=== PATIENT | female | born 1960 | race Caucasian/White ===

== ENCOUNTER 2022-12-27 10:08 | Outpatient (OUT) | payer MEDICARE, SELFPAY ==
--- NOTE | 2022-12-27 10:52 | XR_ITS ---
[address] [address] Patient Name: JOSÉ LUIS KURTZ MRN: [id number] date: 1960 Sex: F Assigned Patient Location: LAB Current Patient Location: LAB Accession/Order Number: [id number] Exam Date: 12/27/2022 11:05 Report Date: 12/27/2022 18:07 At the request of: BULMARO ELIZABETH Procedure: XR ankle RT min 3V PROCEDURE: XR ankle RT min 3V COMPARISON: None. HISTORY: Herniated Lumbar Disc M51.26, Pedal Edema R60.0 FINDINGS: BONES:No acute fracture or dislocation. Moderate enthesopathic spurring plantar calcaneus. SOFT TISSUES:Moderate diffuse soft tissue swelling EFFUSION:None visible. OTHER: Negative. IMPRESSION: Soft tissue swelling Electronically authenticated by: GISSELLE FORBES Date: 12/27/2022 18:07
[2022-12-27 11:30] LABS: Basophils Percent Auto 0.7 % (0.2-2.0); Eosinophils Absolute Auto 0.1 10^3/uL (0.0-0.7); Eosinophils Percent Auto 1.9 % (0.9-7.0); Hematocrit 43.1 % (36.0-48.0); Hemoglobin 14.3 g/dL (12.0-16.0); Immature Granulocytes Abs Auto 0.01 10^3/uL (0.00-0.03); Immature Granulocytes Pct Auto 0.2 % (0.0-0.5); Lymphocytes Absolute Auto 1.4 10^3/uL (1.2-3.8); Lymphocytes Percent Auto 31.8 % (20.5-60.0); Mean Corpuscular HGB Conc 33.2 g/dL (29.9-35.2); Mean Corpuscular Hemoglobin 31.6 pg (26.7-34.0); Mean Corpuscular Volume 95.1 fL (81.0-99.0); Mean Platelet Volume 11.2 fL (9.5-13.5); Monocytes Absolute Auto 0.3 10^3/uL (0.3-0.8); Monocytes Percent Auto 7.9 % (1.7-12.0); Neutrophils Absolute Auto 2.5 10^3/uL (1.4-6.5); Neutrophils Percent Auto 57.5 % (43.0-75.0); Platelet Count 211 10^3/uL (150-450); Red Blood Count 4.53 10^6/uL (4.20-5.40); Red Cell Distribution Width 13.2 % (11.0-15.0); White Blood Count 4.3 10^3/uL (4.0-11.0)
[2022-12-27 11:57] LABS: Estimated Average Glucose 68 mg/dL
[2022-12-27 12:32] LABS: Alanine Aminotransferase 37 U/L (14-59); Albumin Level 3.8 g/dL (3.4-5.0); Alkaline Phosphatase 104 U/L (46-116); Anion Gap 11.4; Aspartate Amino Transferase 24 U/L (15-37); Bilirubin Total 0.4 mg/dL (0.2-1.0); Calcium 9.2 mg/dL (8.5-10.1); Carbon Dioxide 27.6 mmol/L (21.0-32.0); Chloride 103 mmol/L (98-107); Chol HDL Ratio 2.8; Cholesterol 130 mg/dL (<=200); Estimated GFR (African America >60 (>=60); Estimated GFR (Non-African Ame >60 (>=60); Globulin 3.9 g/dL; Glucose 85 mg/dL (74-106); HDL Cholesterol 46 mg/dL (40-60); LDL Cholesterol Calculated 75.4 mg/dL; Sodium 138 mmol/L (136-145); Thyroid Stimulating Hormone 5.128 uIU/mL (0.358-3.740); Total Protein 7.7 g/dL (6.4-8.2); Triglycerides 43 mg/dL (<=150); Uric Acid 3.9 mg/dL (2.6-6.0); VLDL CHOLESTEROL 8.6 mg/dL
[2022-12-27 12:34] LABS: C Reactive Protein <0.2 mg/dL (<=1.0)
[2022-12-28 08:12] LABS: Antistreptolysin O Ab 271.5 IU/mL (0.0-200.0); Rheumatoid Factor (RF) <10.0 IU/mL (<14.0)
[2022-12-28 11:09] LABS: Insulin 7.3 uIU/mL (2.6-24.9)
[2022-12-28 12:09] LABS: ANA Direct Negative (Negative)
[2022-12-30 14:07] LABS: Vitamin B1 (Thiamine), Blood 150.7 nmol/L (66.5-200.0)
== END 2022-12-27 10:09 ==
LOC: LAB 10:13
PROVIDERS: PCP Family Medicine; Visit Provider Family Medicine
DX: E55.9 Vitamin D deficiency, unspecified (principal); E03.9 Hypothyroidism, unspecified; M51.26 Other intervertebral disc displacement, lumbar region; G62.9 Polyneuropathy, unspecified; Z12.12 Encounter for screening for malignant neoplasm of rectum; D64.9 Anemia, unspecified; R60.0 Localized edema; I11.0 Hypertensive heart disease with heart failure; I50.30 Unspecified diastolic (congestive) heart failure
CPT/HCPCS: 36415; 73610; 80053; 80061; 82306; 82607; 83036; 83525; 83540; 83880; 84425; 84436; 84443; 84479; 84550; 85025; 86038; 86060; 86140; 86430

== ENCOUNTER 2023-05-08 08:49 | Outpatient (OUT) | payer MEDICARE, SELFPAY ==
--- NOTE | 2023-05-08 | CT_ITS ---
The [address] [address] Patient Name: JOSÉ LUIS KURTZ MRN: [id number] date: 1960 Sex: F Assigned Patient Location: LAB Current Patient Location: LAB Accession/Order Number: [id number] Exam Date: 05/08/2023 10:42 Report Date: 05/08/2023 11:50 At the request of: BULMARO ELIZABETH Procedure: CT abdomen pelvis w con CT abdomen pelvis w con, 05/08/2023 10:42 AM EDT INDICATION: Unspecified abdominal hernia without obstruction COMPARISON: This study was compared to the prior lumbar MRI dated 04/08/2020 TECHNIQUE: Axial images of the abdomen were obtained after the administration of IV contrast. Multiplanar reformatted images were generated and reviewed as needed. Dose reduction techniques were achieved by using automated exposure control and/or adjustment of mA and/or kV according to patient size and/or use of iterative reconstruction technique. FINDINGS: Lungs: The base of lungs is clear. No pleural effusion is noted. Liver and gallbladder: The liver is unremarkable. There is status post cholecystectomy. No enlargement of intra or extrahepatic biliary ducts. Genitourinary system: Mild bilateral hydronephrosis with no definite obstruction which is stable since prior lumbar MRI in 2019. No nephrolithiasis. No abnormality of the urinary bladder is noted. Other solid abdominal organs: Right adrenal gland, pancreas, and spleen are unremarkable. There is a 1.5 cm lesion within the left adrenal gland with Hounsfield unit of 45, not fully characterized by this study. Aorta: The infrarenal abdominal aorta is nonaneurysmal. Free fluid: There is no free fluid in the abdomen pelvis. Lymph node: No lymph node enlargement by size criteria is noted. 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 No abnormal dilatation or wall thickening of bowel is noted. No abnormality of large bowel is noted. There are postsurgical changes in the epigastric area Bone: There is no suspicious osteolytic or osteoblastic lesion. There is diffuse demineralization of bone. Lower lumbar spine and SI joint degenerative changes are noted. CT/CT abdomen pelvis w con IMPRESSION: No definite abdominal hernia is noted. Mild nonspecific soft tissue thickening below the marker in the epigastric region. Bilateral mild hydronephrosis with no definite obstruction. This is stable since the lumbar MRI in 2019. Left adrenal lesion, not fully characterized by this study. Consider CT or MRI with adrenal protocol. Electronically authenticated by: VIDHI JENKINS Date: 05/08/2023 11:50
[2023-05-08 09:09] LABS: Estimated GFR (African America >60 (>=60); Estimated GFR (Non-African Ame >60 (>=60)
[2023-05-08 12:04] LABS: Free T3 2.62 pg/mL (2.18-3.98)
== END 2023-05-08 08:50 | disposition home or self-care (01) ==
LOC: LAB 08:50
PROVIDERS: PCP Family Medicine; Visit Provider Family Medicine
DX: K46.9 Unspecified abdominal hernia without obstruction or gangrene (principal); E55.9 Vitamin D deficiency, unspecified; R53.83 Other fatigue; E03.9 Hypothyroidism, unspecified; N13.30 Unspecified hydronephrosis; E27.8 Other specified disorders of adrenal gland
CPT/HCPCS: 36415; 74177; 82306; 82565; 84436; 84443; 84481; Q9967

== ENCOUNTER 2024-01-30 11:24 | Outpatient (OUT) | payer MEDICARE, SELFPAY ==
--- NOTE | 2024-01-30 11:50 | XR_ITS ---
The [address] [address] Patient Name: JOSÉ LUIS KURTZ MRN: [id number] date: 1960 Sex: F Assigned Patient Location: LAB Current Patient Location: Accession/Order Number: [id number] Exam Date: 01/30/2024 11:55 Report Date: 01/31/2024 04:35 At the request of: BULMARO ELIZABETH Procedure: XR lumbar spine min 4V EXAMINATION: XR lumbar spine min 4V HISTORY: Herniated Lumbar Disc Without Myelopathy M51.26 COMPARISON: XR L-spine 04/01/2020 FINDINGS: BONES: Slight right convex curvature lumbar spine. Moderate degenerative facet arthropathy L4-L5, L5-S1. DISC SPACES: Moderate narrowing L5-S1. PARASPINOUS: Numerous surgical clips and bowel sutures within upper abdomen. OTHER: Negative. XR/XR lumbar spine min 4V IMPRESSION: 1. Moderate degenerative changes of lower lumbar spine; not appreciably changed. Electronically authenticated by: RAFI BAZZI Date: 01/31/2024 04:35
[2024-01-30 11:51] LABS: Basophils Percent Auto 0.4 % (0.2-2.0); Eosinophils Absolute Auto 0.1 10^3/uL (0.0-0.7); Eosinophils Percent Auto 1.7 % (0.9-7.0); Hematocrit 41.3 % (36.0-48.0); Hemoglobin 13.9 g/dL (12.0-16.0); Immature Granulocytes Abs Auto 0.02 10^3/uL (0.00-0.03); Immature Granulocytes Pct Auto 0.4 % (0.0-0.5); Lymphocytes Absolute Auto 1.6 10^3/uL (1.2-3.8); Lymphocytes Percent Auto 30.5 % (20.5-60.0); Mean Corpuscular HGB Conc 33.7 g/dL (29.9-35.2); Mean Corpuscular Hemoglobin 32.1 pg (26.7-34.0); Mean Corpuscular Volume 95.4 fL (81.0-99.0); Monocytes Absolute Auto 0.5 10^3/uL (0.3-0.8); Monocytes Percent Auto 8.7 % (1.7-12.0); Neutrophils Percent Auto 58.3 % (43.0-75.0); Platelet Count 194 10^3/uL (150-450); Red Blood Count 4.33 10^6/uL (4.20-5.40); Red Cell Distribution Width 12.6 % (11.0-15.0); White Blood Count 5.2 10^3/uL (4.0-11.0)
[2024-01-30 13:01] LABS: Estimated Average Glucose 85 mg/dL; Glycohemoglobin A1C 4.6 % (4.5-6.2)
[2024-01-30 13:15] LABS: Alanine Aminotransferase 59 U/L (14-59); Albumin Globulin Ratio 1.1; Albumin Level 3.7 g/dL (3.4-5.0); Alkaline Phosphatase 106 U/L (46-116); Anion Gap 12.2; Aspartate Amino Transferase 34 U/L (15-37); BUN Creatinine Ratio 27.5; Bilirubin Total 0.5 mg/dL (0.2-1.0); Calcium 8.9 mg/dL (8.5-10.1); Carbon Dioxide 24.8 mmol/L (21.0-32.0); Chloride 104 mmol/L (98-107); Cholesterol 127 mg/dL (<=200); Estimated GFR (African America >60 (>=60); Estimated GFR (Non-African Ame >60 (>=60); Globulin 3.4 g/dL; Glucose 85 mg/dL (74-106); HDL Cholesterol 42 mg/dL (40-60); Sodium 137 mmol/L (136-145); Total Protein 7.1 g/dL (6.4-8.2); Triglycerides 55 mg/dL (<=150)
== END 2024-01-30 11:25 | disposition home or self-care (01) ==
PROVIDERS: PCP Family Medicine; Visit Provider Family Medicine
DX: R30.0 Dysuria (principal); E55.9 Vitamin D deficiency, unspecified; R53.83 Other fatigue; R73.09 Other abnormal glucose; E78.5 Hyperlipidemia, unspecified; D64.9 Anemia, unspecified; M51.26 Other intervertebral disc displacement, lumbar region
CPT/HCPCS: 36415; 72110; 80053; 80061; 82306; 82607; 82728; 82746; 83036; 83540; 84439; 84443; 85025

== ENCOUNTER 2024-02-11 15:32 | Outpatient (OUT) | payer MEDICARE, SELFPAY ==
--- NOTE | 2024-02-11 15:36 | MR_ITS ---
[address] [address] Patient Name: JOSÉ LUIS KURTZ MRN: [id number] date: 1960 Sex: F Assigned Patient Location: MRI Current Patient Location: Accession/Order Number: [id number] Exam Date: 02/11/2024 15:45 Report Date: 02/12/2024 10:15 At the request of: BULMARO ELIZABETH Procedure: MR lumbar spine wo con EXAMINATION: MR lumbar spine wo con HISTORY: Lumbar Back Pain M54.50, Chronic Pain G89.29 COMPARISON: No relevant comparison available. TECHNIQUE: A variety of imaging planes and parameters were utilized for visualization of suspected pathology. FINDINGS: For the purposes of numbering, sagittal T2 image # 8 extends from the T10 vertebral body superiorly to the S4 level inferiorly. PARASPINAL AREA: Normal with no visible mass. BONES: 5 mm anterolisthesis of L5 in relation S1. No acute fracture or bone edema. Mild degenerative spondylosis CORD/CAUDA EQUINA: Normal caliber, contour, and signal intensity. DISC LEVELS: 12-L1: Early degenerative disc disease is present without focal protrusion or neural impingement. L1-L2: Early degenerative disc disease is present without focal protrusion or neural impingement. L2-L3: Early degenerative disc disease is present without focal protrusion or neural impingement. L3-L4: Disc desiccation. Broad-based posterior disc protrusion extending up to 2.5 mm. Moderate ligamentum flavum hypertrophy and facet osteoarthropathy. Mild trefoil narrowing of the central canal. No foraminal stenosis L4-L5: Mild to moderate disc space narrowing and disc desiccation. Mild diffuse posterior disc/osteophyte complex. Moderate ligamentum flavum hypertrophy and facet osteoarthropathy. Mild central canal stenosis. No foraminal stenosis L5-S1: 5 mm anterolisthesis of L5 on S1. Moderate to severe disc space narrowing. Moderate diffuse pseudobulge. Ligamentum flavum hypertrophy and facet osteoarthropathy. No central canal stenosis. Mild bilateral foraminal stenosis MR/MR lumbar spine wo con IMPRESSION: Mild to moderate changes resulting in central and foraminal stenosis detailed above Electronically authenticated by: GISSELLE FORBES Date: 02/12/2024 10:15
--- OUTSIDE RECORDS SUMMARY | 2024-02-11 15:56 | XMS_ITS | CCD ---
Author Organization [facility] Care Team Providers Care Retail Branch Manager Name Role Phone Bulmaro Padron Primary Care Provider CLARA, DR CHAMBERLAIN Admitting Unavailable HOY, DR CHAMBERLAIN Attending Unavailable HOY, DR CHAMBERLAIN Primary Care Unavailable HOY, DR CHAMBERLAIN Consulting Unavailable ZIEBER, DR CLAUDY Guzmán Consulting Unavailable KARMAY, DR CHAMBERLAIN Admitting Unavailable HOY, DR CHAMBERLAIN Attending Unavailable HOY, DR CHAMBERLAIN Primary Care Unavailable HOY, DR CHAMBERLAIN Consulting Unavailable HOY, DR CHAMBERLAIN Admitting Unavailable HOY, DR CHAMBERLAIN Attending Unavailable HOY, DR CHAMBERLAIN Primary Care Unavailable HOY, DR CHAMBERLAIN Consulting Unavailable HOY, DR CHAMBERLAIN Admitting Unavailable HOY, DR CHAMBERLAIN Attending Unavailable HOY, DR CHAMBERLANI Primary Care Unavailable HOY, DR CHAMBERLAIN Consulting Unavailable ZIEBER, DR CLAUDY Guzmán Consulting Unavailable KARMAY, DR CHAMBERLAIN Admitting Unavailable HOY, DR CHAMBERLAIN Attending Unavailable HOY, DR CHAMBERLAIN Primary Care Unavailable HOY, DR CHAMBERLAIN Consulting Unavailable ZIEBER, DR CLAUDY Guzmán Consulting Unavailable KARMAY, DR CHAMBERLAIN Admitting Unavailable HOY, DR CHAMBERLAIN Attending Unavailable KARMAY, DR CHAMBERLAIN Primary Care Unavailable HOY, DR CHAMBERLAIN Consulting Unavailable Bulmaro Padron MD Primary Care Provider GABBIE WHITE Referring Unavailable BULMARO PADRON Primary Care Unavailable JORDYN AETON Attending Unavailable BULMARO PADRON Primary Care Unavailable BULMARO PADRON Primary Care Unavailable ARMIDA AGEE Referring Unavailable BULMARO PADRON Primary Care Unavailable Aayush MENDOZA Attending Unavailable Bulmaro Padron Referring Unavailable Allergies Allergy Classification Reported Allergen(s) Allergy Type Date of Onset Reaction(s) Facility (1 source) Bee/Wasp/Ant venom; Translations: [Bee Stings] Propensity to adverse reactions (disorder) [facility] Repository (1 source) No Known Medication Allergies; Translations: [No Known Medication Allergies] Propensity to adverse reactions (disorder) [facility] Repository Medications Current Medications Medication Drug Class(es) Dates Sig (Normalized) Sig (Original) Acetaminophen / HYDROcodone (1 source) Opioid Agonist Start: 3 This order is for a take home starter pack of medication. Please document Furnish to patient on the MAR. aspirin 81 mg oral tablet (3 sources) Platelet Aggregation Inhibitor, Nonsteroidal Anti-inflammatory Drug take 1 tablet by mouth once daily aspirin 81 MG tablet Take 1 tablet by mouth daily 0 Active cholecalciferol 0.05 mg oral capsule (3 sources) Vitamin D take 1 capsule by mouth once daily Cholecalciferol (VITAMIN D3) 2000 units CAPS Take 1 capsule by mouth daily 0 Active hydroxychloroquine sulfate 200 mg oral tablet (2 sources) Antimalarial, Antirheumatic Agent take 1 tablet by mouth twice daily hydroxychloroquine (PLAQUENIL) 200 MG tablet Take 1 tablet by mouth 2 times daily 0 Active ibuprofen 600 mg oral tablet (4 sources) Nonsteroidal Anti-inflammatory Drug Start: 3 End: 3 take 1 tablet by mouth every six hours as needed for pain ibuprofen (ADVIL;MOTRIN) 600 MG tablet Take 1 tablet by mouth every 6 hours as needed for Pain 28 tablet 0 01/10/2023 Active Start: 07-01-2018 End: 01-10-2023 take 1 tablet by mouth every eight hours as needed for pain ibuprofen (ADVIL;MOTRIN) 600 MG tablet Take 1 tablet by mouth every 8 hours as needed for Pain 30 tablet 0 07/01/2018 01/10/2023 Discontinued (Side effects) levothyroxine sodium 0.112 m g oral tablet (3 sources) l-Thyroxine levothyroxine (S YNTHROID) 112 MCG tablet Take 125 mcg by mouth Daily 0 Active take 1 tablet by mouth once anusha y levothyroxine (SYNTHROID) 112 MCG tablet Take 112 mcg by mouth Daily 0 Active take 1 tablet by mouth once anusha y levothyroxine (SYNTHROID) 50 MCG tablet Take 50 mcg by mouth Daily 0 Active liothyronine sodium 0.005 mg oral tablet (2 sources) l-Triiodothyronine take 3 tablets by mouth once daily liothyronine (CYTOMEL) 5 MCG tablet Take 3 tablets by mouth daily 3x 5mcg tabs daily 0 Active Multiple Vitamins-Minerals (MULTIVITAMIN ADULT PO) (3 sources) take 1 tablet by mouth once daily Multiple Vitamins-Minerals (MULTIVITAMIN ADULT PO) Take 1 tablet by mouth daily 0 Active 24 hr oxybutynin chloride 10 mg extended release oral tablet (1 source) Cholinergic Muscarinic Antagonist Start: take 1 tablet by mouth once daily oxybutynin (DITROPAN XL) 10 MG extended release tablet Take 1 tablet by mouth daily 30 tablet 3 02/01/2023 Active promethazine hydrochloride 25 mg oral tablet (1 source) Phenothiazine Start: End: take 1 tablet by mouth three times daily as needed for nausea promethazine (PHENERGAN) 25 MG tablet Take 1 tablet by mouth 3 times daily as needed for Nausea 12 tablet 0 01/10/2023 01/17/2023 Active tamsulosin hydrochloride 0.4 mg oral capsule (2 sources) alpha-Adrenergic Shannon Start: End: tamsulosin (FLOMAX) capsule 0.4 mg vitamin b12 0.25 mg oral lozenge (3 sources) Vitamin B12 take 1 tablet by mouth once daily Cyanocobalamin (VITAMIN B 12) 250 MCG LOZG Take 1 tablet by mouth daily 0 Active Completed/Discontinued Medications Medication Drug Class(es) Dates Sig (Normalized) Sig (Original) cephalexin 500 mg oral capsule (2 sources) Cephalosporin Antibacterial Start: 01-10-2023 End: 01-17-2023 cephALEXin (KEFLEX) capsule 500 mg 1 ml diphenhydrAMINE hydrochloride 50 mg/ml cartridge (1 source) Histamine-1 Receptor Antagonist Start: 01-10-2023 End: 01-10-2023 diphenhydrAMINE (BENADRYL) injection 25 mg 1 ml HYDROmorphone hydrochloride 1 mg/ml cartridge (1 source) Opioid Agonist Start: 01-10-2023 End: 01-10-2023 HYDROmorphone (DILAUDID) injection 0.5 mg 1 ml ketorolac tromethamine 30 mg/ml cartridge (1 source) Nonsteroidal Anti-inflammatory Drug, Cyclooxygenase Inhibitor Start: 01-10-2023 End: 01-10-2023 ketorolac (TORADOL) injection 30 mg 1 ml morphine sulfate 4 mg/ml cartridge (1 source) Opioid Agonist Start: 01-10-2023 End: 01-10-2023 morphine injection 4 mg 2 ml ondansetron 2 mg/ml injection (5 sources) Serotonin-3 Receptor Antagonist Start: 01-10-2023 End: 01-10-2023 ondansetron (ZOFRAN) injection 4 mg Start: 01-10-2023 End: 01-17-2023 inject 1 tablet by subcutaneous injection every eight hours as needed for nausea ondansetron (ZOFRAN-ODT) [address] 1 tablet under the tongue every 8 hours as needed for Nausea or Vomiting May Sub regular tablet (non-ODT) if insurance does not cover ODT. 20 tablet 0 01/10/2023 01/17/2023 Active Start: 10-09-2022 End: 01-10-2023 take 1 tablet by mouth three times daily as needed for nausea ondansetron (ZOFRAN) 4 MG tablet Take 1 tablet by mouth 3 times daily as needed for Nausea or Vomiting 15 tablet 0 10/09/2022 01/10/2023 Discontinued (LIST CLEANUP) Start: 07-01-2018 End: 01-10-2023 take 1 tablet by mouth three times daily as needed for nausea ondansetron (ZOFRAN-ODT) 4 MG disintegrating tablet Take 1 tablet by mouth 3 times daily as needed for Nausea or Vomiting 6 tablet 0 07/01/2018 01/10/2023 Discontinued (Side effects) 50 ml sodium chloride 9 mg/m l injection (1 source) Start: 01-10-2023 End: 01-10-2023 0.9 % sodium chloride bolus Problems Active Problems Problem Classification Problem Date Documented Date Episodic/Chronic Abdominal pain (5 sources) Right lower quadrant pain; Translations: [Abdominal pain] Onset: 01-11-20 Episodic Calculus of urinary tract (3 sources) Ureteric stone; Translations: [Calculus of ureter] Onset: 01-12-20 23 Episodic Congestive heart failure; nonhypertensive (1 source) Chronic diastolic (congestive) heart failure; Translations: [CHRONIC DIASTOLIC HEART FAILURE] Onset: 03-08-20 Chronic Disorders of lipid metabolism (1 source) Hyperlipidemia, unspecified; Translations: [HYPERLIPIDEMIA UNSPECIFIED] Onset: 03-08-20 Chronic Genitourinary symptoms and ill-defined conditions (1 source) Urge incontinence of urine; Translations: [Urge incontinence] Chronic Genitourinary symptoms and ill-defined conditions (4 sources) Nocturia; Translations: [Nocturia] Onset: 01-12-20 Episodic Hypertension with complications and secondary hypertension (1 source) Hypertensive heart disease with heart failure; Translations: [HTN HEART DISEASE W/HEART FAIL] Onset: 03-08-20 Chronic Nonmalignant breast conditions (5 sources) Unspecified lump in the left breast, lower inner quadrant; Translations: [Other specified disorders of breast] Onset: 08-02-19 Episodic Nutritional deficiencies (1 source) Vitamin D deficiency, unspecified; Translations: [VITAMIN D DEFICIENCY UNSPECIFIED] Onset: 03-08-20 Chronic Other diseases of kidney and ureters (1 source) Hydroureteronephrosis ; Translations: [Unspecified hydronephrosis] Onset: 01-12-2001-11-2023 Episodic Other screening for suspected conditions (not mental disorders or infectious disease) (1 source) Encounter for screening for malignant neoplasm of rectum; Translations: [ENC SCREEN MALIG NEOPLASM RECTUM] Onset: 04-01-20 Episodic Thyroid disorders (4 sources) Hypothyroidism, unspecified; Translations: [HYPOTHYROIDISM UNSPECIFIED] Onset: 06-19-20 Chronic Unclassified (3 sources) Unspecified lump in the left breast, overlapping quadrants; Translations: [UNS LUMP LT BREAST OVRLPNG QUADRNTS] Onset: 07-25-19 Past or Other Problems Problem Classification Problem Date Documented Da te Episodic/Chronic Deficiency and other anemia (1 source) Anemia, unspecified; Translations: [ANEMIA UNSPECIFIED] Onset: 03-08-2022 Episodic Diabetes mellitus without complication (1 source) Other abnormal glucose; Translations: [OTHER ABNORMAL GLUCOSE] Onset: 03-08-2022 Episodic Other gastrointestinal disorders (2 sources) Diarrhea; Translations: [Diarrhea] Onset: 10-09-2022 Episodic Results Test Name Value Interpretation Reference Range Facility Ambulatory Visit Summaryon 1 07-28-2022 Ambulatory Visit Summary JOSÉ LUIS KURTZ :1960 Visit Date:05/28/2023 Ambulatory Visit Instructions Your Care Team Attending Physician - SOL DAVILA, Aayush Guzmán Primary Care Physician - Bulmaro Padron MD Referring Physician - Bulmaro Padron MD This Is Your Medications List Contact prescribing physician if questions or concerns albuterol (Albuterol (Eqv-ProAir HFA)) aspirin (aspirin 81 mg Oral EC Tab) ferrous sulfate (ferrous sulfate 325 mg Tab) hydroxychloroquine (hydroxychloroquine 200 mg Tab) levothyroxine (Synthroid 125 mcg (0.125 mg) Tab) liothyronine (Cytomel 5 mcg Tab) multivitamin Procedures Performed Abdominoplasty, Bariatric surgery, Biopsy of breast, Repair of umbilical hernia. Discharge Vitals Heart Rate (Peripheral) 71 Respiratory Rate 16 Blood Pressure 144/70 Height 149 cm Height 59 in Weight 100.8 kg Weight 221.76 lb BMI 45.4 Medications What How Much When Instructions Unchanged albuterol (Albuterol (Eqv-ProAir HFA)) 1 Puffs Inhalation Every 4 hours as needed for Shortness of breath or wheezing Contact prescribing physician if questions or concerns Unchanged aspirin (aspirin 81 mg Oral EC Tab) 1 Tablets By Mouth Every day Contact prescribing physician if questions or concerns Unchanged ferrous sulfate (ferrous sulfate 325 mg Tab) 1 Tablets By Mouth Every day Contact prescribing physician if questions or concerns Unchanged hydroxychloroquine (hydroxychloroquine 200 mg Tab) 1 Tablets By Mouth 2 times a day Contact prescribing physician if questions or concerns Unchanged levothyroxine (Synthroid 125 mcg (0.125 mg) Tab) 1 Tablets By Mouth Every day 0 Refill(s) Contact prescribing physician if questions or concerns Unchanged liothyronine (Cytomel 5 mcg Tab) 3 Tablets By Mouth Every day Contact prescribing physician if questions or concerns Unchanged multivitamin 1 Tablets By Mouth Every day Contact prescribing physician if questions or concerns Medications and Immunizations Administered Not Given influenza virus vaccine, inactivated, Patient Refuses Allergies Bee Stings No Known Medication Allergies Problems Ongoing - Any problem that you are currently receiving treatment for. Adrenal mass Asthma BMI 45.0-49.9, adult Chronic obstructive lung disease Chronic pain Hyperlipidemia Hypothyroidism Immunodeficiency disorder Iron deficiency anemia Morbid obesity Osteoporosis Polyneuropathy Rheumatoid arthritis Tricuspid valve regurgitation Ureteric stone Vitamin D deficiency Patient Survey You may receive a survey via text or e-mail asking about your office visit. Please share your experience with us by completing your survey. We appreciate your feedback and thank you for choosing us for your care. [facility] RAD - CT Reporton 05-23-2023 RAD - CT Report [id number] 0TIFF Normal [facility] Patient Letter FTMCon 2022 Patient Letter [facility] May 16, 2023 JOSÉ LUIS KURTZ [address] [place] [address] : 1960 Dear Ms. Kurtz, Thank you for choosing [facility] for your healthcare needs. Your consultation appointment with Dr Aayush Mendoza is scheduled for 05/28/23 at 10am. We are located in the [facility] 3 building, 2nd floor, [address]. A map is enclosed. Please bring your insurance card, a photo ID, and any co-pay you are responsible for to this first appointment. If you have any questions, please call us at [phone]. We look forward to seeing you soon. Sincerely, [place] [address], [address] [place] [address]. [place] [address] Normal [facility] Consultation Noteon 05-01-20 23 Consultation Note [id number] 0TIFF Normal [facility] Physician Referralon 023 Physician Referral [id number] Normal [facility] Cult,Urineon 04-03-2023 Cult,Urine Specimen Description .CLEAN CATCH URINE Culture NO SIGNIFICANT GROWTH Report Status FINAL 04/03/2023 [facility] Comment on above: Performed By: #### B C #### [facility] [address] [place] [address] [place] [address] Ammunition Components Inspector: Stu Baires MD Trichomonas/Wet Prepon 04-02 Trichomonas/Wet Prep Specimen Description .VAGINA Direct Exam NO YEAST OBSERVED NO TRICHOMONAS SEEN NO CLUE CELLS SEEN Report Status FINAL 04/02/2023 [facility] Comment on above: Performed By: #### W P #### [facility] [address] [place] [address] Ammunition Components Inspector: Stu Baires MD Cult,Urineon 02-03-2023 Cult,Urine Specimen Description .CLEAN CATCH URINE Culture NO SIGNIFICANT GROWTH Report Status FINAL 02/02/2023 Normal [facility] Comment on above: Performed By: #### U RC #### [place] [address] [place] [address] Ammunition Components Inspector: Victor Manuel Be MD [facility] [address] [place] [address] Ammunition Components Inspector: Stu Baires MD Culture, Urineon 02-02-2023 Microorganism identified Cx Nom (Unsp spec) NO SIGNIFICANT GROWTH [facility] Specimen Description .CLEAN CATCH URINE [facility] CT ABDOMEN PELVIS WO CONTRAS Ton 02-01-2023 CT ABDOMEN PELVIS WO CONTRAST EXAMINATION: CT OF THE ABDOMEN AND PELVIS WITHOUT CONTRAST 02/01/2023 11:52 am TECHNIQUE: CT of the abdomen and pelvis was performed without the administration of intravenous contrast. Multiplanar reformatted images are provided for review. Automated exposure control, iterative reconstruction, and/or weight based adjustment of the mA/kV was utilized to reduce the radiation dose to as low as reasonably achievable. COMPARISON: 01/10/2023 HISTORY: ORDERING SYSTEM PROVIDED HISTORY: Ureteral calculus TECHNOLOGIST PROVIDED HISTORY: FINDINGS: Lower Chest: Visualized portions of the lower thorax are unremarkable. Organs: Unenhanced liver, spleen, pancreas, adrenal glands, and kidneys without acute abnormality. No renal stones. No obstructive uropathy. GI/Bowel: No bowel obstruction. Postoperative changes involving the stomach. Partial bowel resection. Pelvis: Urinary bladder and uterus unremarkable. Peritoneum/Retroperito neum: No free air, fluid, or lymphadenopathy. Bones/Soft Tissues: No acute osseous abnormality. IMPRESSION: No CT evidence of acute intra-abdominal process. Interpreted by: Ar Graves MD Signed by: Ar Graves MD 02/01/23 Final result Normal [facility] CBC with Auto Differentialon 01-10-2023 Basophils (Bld) [#/Vol] 0.03 10*3/uL [facility] Basophils/100 WBC (Bld) 0 % 0 - 2 % [facility] Eosinophils (Bld) [#/Vol] 0.03 10*3/uL [facility] Eosinophils/100 WBC (Bld) 0 % Low 1 - 4 % [facility] Erythrocyte distribution width (RBC) [Ratio] 12.6 % 11.8 - 14.4 % [facility] Hematocrit (Bld) [Volume fraction] 43.5 % 36.3 - 47.1 % [facility] Hemoglobin (Bld) [Mass/Vol] 14.4 g/dL 11.9 - 15.1 g/dL [facility] Immature granulocytes (Bld) [#/Vol] [facility] Immature granulocytes/100 WBC (Bld) 0 % 0 [facility] Interpretation and review of laboratory results Abnormal [facility] Lymphocytes/100 WBC (Bld) 11 % Low 24 - 43 % [facility] Lymphocytes/100 WBC (Bld) 0.90 % Low [facility] MCH (RBC) [Entitic mass] 31.5 pg 25.2 - 33.5 pg [facility] MCHC (RBC) [Mass/Vol] 33.1 g/dL 28.4 - 34.8 g/dL [facility] MCV (RBC) [Entitic vol] 95.2 fL 82.6 - 102.9 fL [facility] Monocytes/100 WBC (Bld) 5 % 3 - 12 % [facility] Monocytes/100 WBC (Bld) 0.44 % [facility] Neutrophils/100 WBC (Bld) 84 % High 36 - 65 % [facility] Nucleated RBC/100 WBC (Bld) [Ratio] 0.0 % 0.0 per 100 WBC [facility] Platelet mean volume (Bld) [Entitic vol] 10.8 fL 8.1 - 13.5 fL [facility] Platelets (Bld) [#/Vol] 210 10*3/uL [facility] RBC (Bld) [#/Vol] 4.57 10*6/uL 3.95 - 5.1 1 m/uL [facility] Segmented neutrophils/100 WBC (Bld) 7.13 % [facility] WBC other (Bld) [#/Vol] 8.6 [facility] CBC with Diffon 01-10-2023 Abs. Basophil 0.03 k/uL Normal 0.00-0.20 [facility] Comment on above: Performed By: #### C DP, CP #### [address] [place], [place] [address] Ammunition Components Inspector: Stu Baires MD Abs.Imm.Granulocyte <0.03 Normal 0.00-0.30 [facility] Comment on above: Performed By: #### C DP, CP #### [address] [place] [address] Ammunition Components Inspector: Stu Baires MD Abs.Neutrophil (Seg) 7.13 k/uL Normal 1.50-8.10 [facility] Comment on above: Performed By: #### C DP, CP #### [address] [place] [id number] Ammunition Components Inspector: Stu Baires MD Basophils/100 WBC (Bld) 0 % Normal 0-2 [facility] Comment on above: Performed By: #### C DP, CP #### [address] [place], [facility]83 Ammunition Components Inspector: Stu Baires MD Eosinophils (Bld) [#/Vol] 0.03 10*3/uL Normal 0.00-0.44 [facility] Comment on above: Performed By: #### C DP, CP #### [address] [place] [id number] Ammunition Components Inspector: Stu Baires MD Eosinophils/100 WBC (Bld) 0 % Low 1-4 [facility] Comment on above: Performed By: #### C DP, CP #### [address] [place], [place] [address] Ammunition Components Inspector: Stu Baires MD Erythrocyte distribution width (RBC) [Ratio] 12.6 % Normal 11.8-14.4 [facility] Comment on above: Performed By: #### C DP, CP #### [facility] [address] [place] [address] Ammunition Components Inspector: Stu Baires MD Hematocrit (Bld) [Volume fraction] 43.5 % Normal 36.3-47.1 [facility] Comment on above: Performed By: #### C DP, CP #### [address] [place] [address] Ammunition Components Inspector: Stu Baires MD Hemoglobin (Bld) [Mass/Vol] 14.4 g/dL Normal 11.9-15.1 [facility] Comment on above: Performed By: #### C DP, CP #### [address] [place] [address] Ammunition Components Inspector: Stu Baires MD Immature granulocytes/100 WBC (Bld) 0 % Normal 0 [facility] Comment on above: Performed By: #### C DP, CP #### [address] [place], [facility]83 Ammunition Components Inspector: Stu Baires MD Lymphocytes (Bld) [#/Vol] 0.90 10*3/uL Low 1.10-3.70 [facility] Comment on above: Performed By: #### C DP, CP #### [facility] [address] [place] [address] Dr[place], [facility]83 Ammunition Components Inspector: Stu Baires MD Lymphocytes/100 WBC (Bld) 11 % Low 24-43 [facility] Comment on above: Performed By: #### C DP, CP #### [facility] [address] [place], [facility]83 Ammunition Components Inspector: Stu Baires MD MCH (RBC) [Entitic mass] 31.5 pg Normal 25.2-33.5 [facility] Comment on above: Performed By: #### C DP, CP #### [address] [place] [address] Ammunition Components Inspector: Stu Baires MD MCHC (RBC) [Mass/Vol] 33.1 g/dL Normal 28.4-34.8 [facility] Comment on above: Performed By: #### C DP, CP #### [address] [place], [place] [id number] Ammunition Components Inspector: Stu Baires MD MCV (RBC) [Entitic vol] 95.2 fL Normal 82.6-102.9 [facility] Comment on above: Performed By: #### C DP, CP #### [address] [place], [place] [id number] Ammunition Components Inspector: Stu Baires MD Monocytes (Bld) [#/Vol] 0.44 10*3/uL Normal 0.10-1.20 [facility] Comment on above: Performed By: #### C DP, CP #### [address] [place], [place] [id number] Ammunition Components Inspector: Stu Baires MD Monocytes/100 WBC (Bld) 5 % Normal 3-12 [facility] Comment on above: Performed By: #### C DP, CP #### [address] [place], [place] [id number] Ammunition Components Inspector: Stu Baires MD Neutrophil (Seg) 84 % High 36-65 [facility] Comment on above: Performed By: #### C DP, CP #### [address] [place], [place] [id number] Ammunition Components Inspector: Stu Baires MD NRBC Automated 0.0 per 100 WBC Normal 0.0 [facility] Comment on above: Performed By: #### C DP, CP #### [facility] [address] [place], [place] [id number] Ammunition Components Inspector: Stu Baires MD Platelet mean volume (Bld) [Entitic vol] 10.8 fL Normal 8.1-13.5 [facility] Comment on above: Performed By: #### C DP, CP #### [facility] [address] [place] [address] Ammunition Components Inspector: Stu Baires MD Platelets (Bld) [#/Vol] 210 10*3/uL Normal 138-453 [facility] Comment on above: Performed By: #### C DP, CP #### [facility] [address] [place] [address] Ammunition Components Inspector: Stu Baires MD RBC (Bld) [#/Vol] 4.57 10*6/uL Normal 3.95-5.11 [facility] Comment on above: Performed By: #### C DP, CP #### [facility] [address] [place], [facility]83 Ammunition Components Inspector: Stu Baires MD WBC (Bld) [#/Vol] 8.6 10*3/uL Normal 3.5-11.3 [facility] Comment on above: Performed By: #### C DP, CP #### [facility] [address] [place], [facility]83 Ammunition Components Inspector: Stu Baires MD [facility] 01-10-2023 Albumin [Mass/Vol] 4.3 g/dL 3.5 - 5.2 g/dL [facility] Albumin/Globulin [Mass ratio] 1.4 {ratio} 1.0 - 2.5 [facility] ALP [Catalytic activity/Vol] 97 U/L 35 - 104 U/L [facility] ALT [Catalytic activity/Vol] 29 U/L 5 - 33 U/L [facility] Anion gap [Moles/Vol] 8 mmol/L Low 9 - 17 mmol/L [facility] AST [Catalytic activity/Vol] 25 U/L NINF - 32 U/L [facility] Bilirubin [Mass/Vol] 0.3 mg/dL 0.3 - 1.2 mg/dL [facility] Calcium [Mass/Vol] 9.3 mg/dL 8.6 - 10. 4 mg/dL [facility] Chloride [Moles/Vol] 105 mmol/L 98 - 107 mmol/L [facility] CO2 [Moles/Vol] 25 mmol/L 20 - 31 mmol/L [facility] Creatinine [Mass/Vol] 0.51 mg/dL 0.50 - 0.90 mg/dL [facility] GFR/1.73 sq M.predicted MDRD (S/P/Bld) [Vol rate/Area] - PINF [facility] Comment on above: These results are not intended for use in patients <18 years of age. eGFR results are calculated without a race factor using the 2020 CKD-EPI equation. Careful clinical correlation is recommended, particularly when comparing to results calculated using previous equations. The CKD-EPI equation is less accurate in patients with extremes of muscle mass, extra-renal metabolism of creatine, excessive creatine ingestion, or following therapy that affects renal tubular secretion. Glucose [Mass/Vol] 140 mg/dL High 70 - 99 mg/dL [facility] Interpretation and review of laboratory results Abnormal [facility] Potassium [Moles/Vol] 4.3 mmol/L 3.7 - 5.3 mmol/L [facility] Protein [Mass/Vol] 7.4 g/dL 6.4 - 8.3 g/dL [facility] Sodium [Moles/Vol] 138 mmol/L 135 - 144 mmol/L [facility] Urea nitrogen [Mass/Vol] 13 mg/dL 8 - 23 mg/dL [facility] Urea nitrogen/Creatinine [Mass ratio] 25 mg/mg High 9 - [address] [facility] [address] ABDOMEN PELVIS WO CONTRAS Ton 01-10-2023 CT ABDOMEN PELVIS WO CONTRAST EXAMINATION: CT OF THE ABDOMEN AND PELVIS WITHOUT CONTRAST 01/10/2023 6:55 pm TECHNIQUE: CT of the abdomen and pelvis was performed without the administration of intravenous contrast. Multiplanar reformatted images are provided for review. Automated exposure control, iterative reconstruction, and/or weight based adjustment of the mA/kV was utilized to reduce the radiation dose to as low as reasonably achievable. COMPARISON: CT abdomen and pelvis 07/01/2018. HISTORY: ORDERING SYSTEM PROVIDED HISTORY: Dysuria, r/o kidney infection TECHNOLOGIST PROVIDED HISTORY: Dysuria, r/o kidney infection Decision Support Exception - unselect if not a suspected or confirmed emergency medical condition->Emergency Medical Condition (MA) FINDINGS: Lower Chest: Images through the lung bases are unremarkable. Organs: Lack of intravenous contrast limits evaluation of the solid organs, vascular structures, and bowel. The liver is unremarkable. Status post cholecystectomy. No biliary ductal dilatation. The pancreas, spleen, and right adrenal gland are unremarkable. 1.6 cm left adrenal nodule with average Hounsfield units of -6. This is not significantly changed from 07/01/2018. 2 mm stone at the right ureterovesical junction on axial image 141 with mild hydroureteronephrosis. Mild right perinephric stranding is also seen. Left parapelvic renal cysts unchanged from 2018. No left-sided obstructive uropathy. GI/Bowel: Anastomotic sutures in the ascending colon. Postoperative changes of the stomach. No obstruction or wall thickening identified. Pelvis: The urinary bladder is normal in appearance. The uterus and bilateral adnexae are unremarkable. No free fluid in the pelvis. No pelvic or inguinal lymphadenopathy. Peritoneum/Retroperito neum: The abdominal aorta is normal in appearance. No retroperitoneal or mesenteric lymphadenopathy is identified. No free air or fluid is seen in the abdomen. Bones/Soft Tissues: No acute osseous or soft tissue abnormality. IMPRESSION: 1. 2 mm stone at the right ureterovesical junction with mild hydroureteronephrosis. 2. 1.6 cm left adrenal nodule unchanged from 2018 compatible with a benign adenoma. No follow-up recommended. Interpreted by: Enrico Armstrong MD Signed by: Enrico Armstrong MD 01/10/23 Final result Normal [facility] CT ABDOMEN PELVIS WO CONTRAS T Additional Contrast? Noneon 01-10-2023 1. 2 mm stone at the right ureterovesical junction with mild hydroureteronephrosis. 2. 1.6 cm left adrenal nodule unchanged from 2018 compatible with a benign adenoma. No follow-up recommended. [facility] RIS CONSOLIDATED EXAMINATION: CT OF THE ABDOMEN AND PELVIS WITHOUT CONTRAST 01/10/2023 6:55 pm TECHNIQUE: CT of the abdomen and pelvis was performed without the administration of intravenous contrast. Multiplanar reformatted images are provided for review. Automated exposure control, iterative reconstruction, and/or weight based adjustment of the mA/kV was utilized to reduce the radiation dose to as low as reasonably achievable. COMPARISON: CT abdomen and pelvis 07/01/2018. HISTORY: ORDERING SYSTEM PROVIDED HISTORY: Dysuria, r/o kidney infection TECHNOLOGIST PROVIDED HISTORY: Dysuria, r/o kidney infection Decision Support Exception - unselect if not a suspected or confirmed emergency medical condition->Emergency Medical Condition (MA) FINDINGS: Lower Chest: Images through the lung bases are unremarkable. Organs: Lack of intravenous contrast limits evaluation of the solid organs, vascular structures, and bowel. The liver is unremarkable. Status post cholecystectomy. No biliary ductal dilatation. The pancreas, spleen, and right adrenal gland are unremarkable. 1.6 cm left adrenal nodule with average Hounsfield units of -6. This is not significantly changed from 07/01/2018. 2 mm stone at the right ureterovesical junction on axial image 141 with mild hydroureteronephrosis. Mild right perinephric stranding is also seen. Left parapelvic renal cysts unchanged from 2018. No left-sided obstructive uropathy. GI/Bowel: Anastomotic sutures in the ascending colon. Postoperative changes of the stomach. No obstruction or wall thickening identified. Pelvis: The urinary bladder is normal in appearance. The uterus and bilateral adnexae are unremarkable. No free fluid in the pelvis. No pelvic or inguinal lymphadenopathy. Peritoneum/Retroperito neum: The abdominal aorta is normal in appearance. No retroperitoneal or mesenteric lymphadenopathy is identified. No free air or fluid is seen in the abdomen. Bones/Soft Tissues: No acute osseous or soft tissue abnormality. [facility] Enrico Harvey MD - 01/10/2023 EXAMINATION: CT OF THE ABDOMEN AND PELVIS WITHOUT CONTRAST 01/10/2023 6:55 pm TECHNIQUE: CT of the abdomen and pelvis was performed without the administration of intravenous contrast. Multiplanar reformatted images are provided for review. Automated exposure control, iterative reconstruction, and/or weight based adjustment of the mA/kV was utilized to reduce the radiation dose to as low as reasonably achievable. COMPARISON: CT abdomen and pelvis 07/01/2018. HISTORY: ORDERING SYSTEM PROVIDED HISTORY: Dysuria, r/o kidney infection TECHNOLOGIST PROVIDED HISTORY: Dysuria, r/o kidney infection Decision Support Exception - unselect if not a suspected or confirmed emergency medical condition->Emergency Medical Condition (MA) FINDINGS: Lower Chest: Images through the lung bases are unremarkable. Organs: Lack of intravenous contrast limits evaluation of the solid organs, vascular structures, and bowel. The liver is unremarkable. Status post cholecystectomy. No biliary ductal dilatation. The pancreas, spleen, and right adrenal gland are unremarkable. 1.6 cm left adrenal nodule with average Hounsfield units of -6. This is not significantly changed from 07/01/2018. 2 mm stone at the right ureterovesical junction on axial image 141 with mild hydroureteronephrosis. Mild right perinephric stranding is also seen. Left parapelvic renal cysts unchanged from 2018. No left-sided obstructive uropathy. GI/Bowel: Anastomotic sutures in the ascending colon. Postoperative changes of the stomach. No obstruction or wall thickening identified. Pelvis: The urinary bladder is normal in appearance. The uterus and bilateral adnexae are unremarkable. No free fluid in the pelvis. No pelvic or inguinal lymphadenopathy. Peritoneum/Retroperito neum: The abdominal aorta is normal in appearance. No retroperitoneal or mesenteric lymphadenopathy is identified. No free air or fluid is seen in the abdomen. Bones/Soft Tissues: No acute osseous or soft tissue abnormality. IMPRESSION: 1. 2 mm stone at the right ureterovesical junction with mild hydroureteronephrosis. 2. 1.6 cm left adrenal nodule unchanged from 2018 compatible with a benign adenoma. No follow-up recommended. [facility] Radiology Study observation (narrative) [facility] CT ABDOMEN PELVIS WO CONTRAS T Additional Contrast? NoneOrdered By: Enrico Armstrong on 01-10-2023 [facility] Work Phone: Comp Metabolic Profon 2022 Albumin [Mass/Vol] 4.3 g/dL Normal 3.5-5.2 [facility] Comment on above: Performed By: #### B C #### [facility] [address] [place] [address] Ammunition Components Inspector: Stu Baires MD Albumin/Glob Ratio 1.4 Normal 1.0-2.5 [facility] Comment on above: Performed By: #### B C #### [facility] [address] [place], [place] [id number] Ammunition Components Inspector: Stu Baires MD Alkaline Phos 97 U/L Normal 35-104 [facility] Comment on above: Performed By: #### B C #### [facility] [address] [place], [place] [id number] Ammunition Components Inspector: Stu Baires MD ALT [Catalytic activity/Vol] 29 U/L Normal 5-33 [facility] Comment on above: Performed By: #### B C #### [facility] [address] [place], [place] [id number] Ammunition Components Inspector: Stu Baires MD Anion gap [Moles/Vol] 8 mmol/L Low 9-17 [facility] Comment on above: Performed By: #### B C #### [facility] [address] [place], [place] [id number] [employer]munition Components Inspector: Stu Baires MD AST [Catalytic activity/Vol] 25 U/L Normal <32 [facility] Comment on above: Performed By: #### B C #### [facility] [address] [place], [place] [id number] Ammunition Components Inspector: Stu Baires MD Bilirubin [Mass/Vol] 0.3 mg/dL Normal 0.3-1.2 [facility] Comment on above: Performed By: #### B C #### [facility] [address] [place], [place] [id number] Ammunition Components Inspector: Stu Baires MD BUN/CRE Ratio 25 High 9-20 [facility] Comment on above: Performed By: #### B C #### [facility] [address] [place], [place] [id number] Ammunition Components Inspector: Stu Baires MD Calcium [Mass/Vol] 9.3 mg/dL Normal 8.6-10.4 [facility] Comment on above: Performed By: #### B C #### [facility] [address] [place], [place] [id number] [employer]munition Components Inspector: Stu Baires MD Chloride [Moles/Vol] 105 mmol/L Normal 98-107 [facility] Comment on above: Performed By: #### B C #### [facility] [address] [place] [address] Ammunition Components Inspector: Stu Baires MD CO2 [Moles/Vol] 25 mmol/L Normal 20-31 [facility] Comment on above: Performed By: #### B C #### [facility] [address] [place] [address] Ammunition Components Inspector: Stu Baires MD Creatinine [Mass/Vol] 0.51 mg/dL Normal 0.50-0.90 [facility] Comment on above: Performed By: #### B C #### [facility] [address] [place] [address] Ammunition Components Inspector: Stu Baires MD GFR/1.73 sq M.predicted among non-blacks MDRD (S/P/Bld) [Vol rate/Area] mL/min/{1.73_m2} Normal >60 [facility] Comment on above: Result Comment: These results are not intended for use in patients <18 years of age. eGFR results are calculated without a race factor using the 2020 CKD-EPI equation. Careful clinical correlation is recommended, particularly when comparing to results calculated using previous equations. The CKD-EPI equation is less accurate in patients with extremes of muscle mass, extra-renal metabolism of creatine, excessive creatine ingestion, or following therapy that affects renal tubular secretion. Performed By: #### B C #### [facility] [address] [place] [address] Ammunition Components Inspector: Stu Baires MD Glucose [Mass/Vol] 140 mg/dL High 70-99 [facility] Comment on above: Performed By: #### B C #### [facility] [address] [place] [address] Ammunition Components Inspector: Stu Baires MD Potassium [Moles/Vol] 4.3 mmol/L Normal 3.7-5.3 [facility] Comment on above: Performed By: #### B C #### [facility] [address] [place], [place] [id number] Ammunition Components Inspector: Stu Baires MD Protein [Mass/Vol] 7.4 g/dL Normal 6.4-8.3 [facility] Comment on above: Performed By: #### B C #### [address] [place], [place] [phone] Ammunition Components Inspector: Stu Baires MD Sodium [Moles/Vol] 138 mmol/L Normal 135-144 [facility] Comment on above: Performed By: #### B C #### [facility] [address] [place] [address] [place] [address] Ammunition Components Inspector: Stu Baires MD Urea nitrogen [Mass/Vol] 13 mg/dL Normal 8-23 [facility] Comment on above: Performed By: #### B C #### [address] [place], [place] [id number] Ammunition Components Inspector: Stu Baires MD Microscopic Urinalysison Bacteria LM Ql (Urine sed) TRACE Abnormal None [facility] Epithelial cells LM.HPF (Urine sed) [#/Area] 0 TO 2 [facility] Interpretation and review of laboratory results Abnormal [facility] RBC LM.HPF (Urine sed) [#/Area] 0 TO 2 [facility] WBC LM.HPF (Urine sed) [#/Area] 10 TO 20 [facility] Urinalysis[facility] 01-10-2023 Bilirubin Ql (U) Negative NEGATIVE [facility] Clarity (U) Clear Clear [facility] Color (U) Yellow Yellow [facility] Glucose Test strip (U) [Mass/Vol] Negative NEGATIVE [facility] Hemoglobin Auto test strip Ql (U) Negative NEGATIVE [facility] Interpretation and review of laboratory results Abnormal [facility] Ketones (U) [Mass/Vol] Negative NEGATIVE [facility] Leukocyte esterase Test strip Ql (U) SMALL Abnormal NEGATIVE [facility] Nitrite Ql (U) Negative NEGATIVE [facility] pH (U) 5.5 [pH] 5.0 - 9.0 [facility] Protein (U) [Mass/Vol] Negative NEGATIVE [facility] Specific gravity (U) [Rel density] High 1.010 - 1.020 [facility] Urobilinogen Qn (U) Normal Normal [facility] Urinalysis, Routineon 2022 Bilirubin, SemiQt,Ur Negative Normal NEG [facility] Comment on above: Performed By: #### B C #### [facility] [address] [place] [address] [place] [phone] Ammunition Components Inspector: Stu Baires MD Blood, Urine Negative Normal NEG [facility] Comment on above: Performed By: #### B C #### [address] [place] [address] Ammunition Components Inspector: Stu Baires MD Clarity (U) Clear Normal CLEAR [facility] Comment on above: Performed By: #### B C #### [facility] [address] [place] [address] [place] [address] Ammunition Components Inspector: Stu Baires MD Color (U) Yellow Normal YEL [facility] Comment on above: Performed By: #### B C #### [address] [place] [address] Ammunition Components Inspector: Stu Baires MD Glucose Ql (U) Negative Normal NEG [facility] Comment on above: Performed By: #### B C #### [address] [place], [place] [id number] Ammunition Components Inspector: Stu Baires MD Ketones Ql (U) Negative Normal NEG [facility] Comment on above: Performed By: #### B C #### [facility] [address] [place], [place] [phone] Ammunition Components Inspector: Stu Baires MD Leukocyte esterase Test strip Ql (U) SMALL Abnormal NEG [facility] Comment on above: Performed By: #### B C #### [facility] [address] [place] [address] Ammunition Components Inspector: Stu Baires MD Nitrite,Ur Negative Normal NEG [facility] Comment on above: Performed By: #### B C #### [facility] [address] [place] [address] [place] [address] Ammunition Components Inspector: Stu Baires MD PH,Ur 5.5 Normal 5.0-9.0 [facility] Comment on above: Performed By: #### B C #### [facility] [address] [place] [address] [place], [place] [id number] Ammunition Components Inspector: Stu Baires MD Protein Ql (U) Negative Normal NEG [facility] Comment on above: Performed By: #### B C #### [facility] [address] [place] [address] Dr[address] [place], [place] [phone] [employer]munition Components Inspector: Stu Baires MD Spec. [place],Ur >1.030 High 1.010-1.020 [facility] Comment on above: Performed By: #### B C #### [facility] [address] [place], [place] [phone] Ammunition Components Inspector: Stu Baires MD Urobilinogen,Ur Normal Normal NORM [facility] Comment on above: Performed By: #### B C #### [facility] [address] [place], [place] [phone] Ammunition Components Inspector: Stu Baires MD Urinalysis,Microon 3 Bacteria TRACE Abnormal NONE [facility] Comment on above: Performed By: #### B C #### [facility] [address] [place] [address] Ammunition Components Inspector: Stu Baires MD Epithelial cells LM Ql (Urine sed) 0 TO 2 Normal 0-25 [facility] Comment on above: Performed By: #### B C #### [facility] [address] [place], [place] [phone] Ammunition Components Inspector: Stu Baires MD Urine RBC's 0 TO 2 Normal 0-2 [facility] Comment on above: Performed By: #### B C #### [address] [place], [place] [phone] Ammunition Components Inspector: Stu Baires MD Urine WBC's 10 TO 20 Normal 0-5 [facility] Comment on above: Performed By: #### B C #### [facility] [address] [place] [address] [place], [place] [id number] [employer]munition Components Inspector: Stu Baires MD Cult, Bloodon 10-14-2022 Cult, Blood Specimen Description .BLOOD Special Requests 10ML LHAND Culture NO GROWTH 5 DAYS Report Status FINAL 10/14/2022 Normal [facility] Comment on above: Performed By: #### B C #### [facility] [address] [place] [address] [place] [place], [place] [phone] Ammunition Components Inspector: Stu Baires MD Cult,Bloodon 10-14-2022 Cult,Blood Specimen Description .BLOOD Special Requests 14ml rfa Culture NO GROWTH 5 DAYS Report Status FINAL 10/14/2022 Normal [facility] Comment on above: Performed By: #### B C #### [facility] [address] [place] [address] [place] [address] Ammunition Components Inspector: Stu Baires MD CBC with Diffon 10-09-2022 Abs. Basophil 0.03 k/uL Normal 0.00-0.20 [facility] Comment on above: Performed By: #### C P, CDP #### [address] [place], [place] [address] Ammunition Components Inspector: Stu Baires MD Abs.Imm.Granulocyte <0.03 Normal 0.00-0.30 [facility] Comment on above: Performed By: #### C P, CDP #### [address] [place], [place] [address] Ammunition Components Inspector: Stu Baires MD Abs.Neutrophil (Seg) 2.53 k/uL Normal 1.50-8.10 [facility] Comment on above: Performed By: #### C P, CDP #### [address] [place] [address] Ammunition Components Inspector: Stu Baires MD Basophils/100 WBC (Bld) 1 % Normal 0-2 [facility] Comment on above: Performed By: #### C P, CDP #### [address] [place] [address] Ammunition Components Inspector: Stu Baires MD Eosinophils (Bld) [#/Vol] 0.06 10*3/uL Normal 0.00-0.44 [facility] Comment on above: Performed By: #### C P, CDP #### [address] [place] [address] Ammunition Components Inspector: Stu Baires MD Eosinophils/100 WBC (Bld) 2 % Normal 1-4 [facility] Comment on above: Performed By: #### C P, CDP #### [address] [place] [address] Ammunition Components Inspector: Stu Baires MD Erythrocyte distribution width (RBC) [Ratio] 13.0 % Normal 11.8-14.4 [facility] Comment on above: Performed By: #### C P, CDP #### [address] [place], [facility]83 Ammunition Components Inspector: Stu Baires MD Hematocrit (Bld) [Volume fraction] 38.9 % Normal 36.3-47.1 [facility] Comment on above: Performed By: #### C P, CDP #### [address] [place], [facility]83 Ammunition Components Inspector: Stu Baires MD Hemoglobin (Bld) [Mass/Vol] 13.2 g/dL Normal 11.9-15.1 [facility] Comment on above: Performed By: #### C P, CDP #### [address] [place] [address] Ammunition Components Inspector: Stu Baires MD Immature granulocytes/100 WBC (Bld) 1 % High 0 [facility] Comment on above: Performed By: #### C P, CDP #### [address] [place], [facility]83 Ammunition Components Inspector: Stu Baires MD Lymphocytes (Bld) [#/Vol] 0.71 10*3/uL Low 1.10-3.70 [facility] Comment on above: Performed By: #### C P, CDP #### [address] [place], [facility]83 Ammunition Components Inspector: Stu Baires MD Lymphocytes/100 WBC (Bld) 18 % Low 24-43 [facility] Comment on above: Performed By: #### C P, CDP #### [facility] [address] [place] [address] [place], [facility]83 [employer]munition Components Inspector: Stu Baires MD MCH (RBC) [Entitic mass] 32.0 pg Normal 25.2-33.5 [facility] Comment on above: Performed By: #### C P, CDP #### [address] [place], [facility]83 Ammunition Components Inspector: Stu Baires MD MCHC (RBC) [Mass/Vol] 33.9 g/dL Normal 28.4-34.8 [facility] Comment on above: Performed By: #### C P, CDP #### [facility] [address] [place], [place] [id number] [employer]munition Components Inspector: Stu Baires MD MCV (RBC) [Entitic vol] 94.2 fL Normal 82.6-102.9 [facility] Comment on above: Performed By: #### C P, CDP #### [address] [place], [facility]83 [employer] Inspector: Stu Baires MD Monocytes (Bld) [#/Vol] 0.56 10*3/uL Normal 0.10-1.20 [facility] Comment on above: Performed By: #### C P, CDP #### [address] [place], [place] [address] [employer] Inspector: Stu Baires MD Monocytes/100 WBC (Bld) 14 % High 3-12 [facility] Comment on above: Performed By: #### C P, CDP #### [address] [place], [facility]83 [employer] Inspector: Stu Baires MD Neutrophil (Seg) 64 % Normal 36-65 [facility] Comment on above: Performed By: #### C P, CDP #### [address] [place], [facility]83 [employer] Inspector: Stu Baires MD NRBC Automated 0.0 per 100 WBC Normal 0.0 [facility] Comment on above: Performed By: #### C P, CDP #### [address] [place], [facility]83 [employer] Inspector: Stu Baires MD Platelet mean volume (Bld) [Entitic vol] 11.1 fL Normal 8.1-13.5 [facility] Comment on above: Performed By: #### C P, CDP #### [facility] [address] [place] [address] [employer] Inspector: Stu Baires MD Platelets (Bld) [#/Vol] 221 10*3/uL Normal 138-453 [facility] Comment on above: Performed By: #### C P, CDP #### [facility] [address] [place] [address] [employer] Inspector: Stu Baires MD RBC (Bld) [#/Vol] 4.13 10*6/uL Normal 3.95-5.11 [facility] Comment on above: Performed By: #### C P, CDP #### [facility] [address] [place], [place] [id number] [employer] Inspector: Stu Baires MD WBC (Bld) [#/Vol] 3.9 10*3/uL Normal 3.5-11.3 [facility] Comment on above: Performed By: #### C P, CDP #### [facility] [address] [place], [place] [id number] [employer] Inspector: Stu Baires MD Comp Metabolic Profon 2022 Albumin [Mass/Vol] 3.4 g/dL Low 3.5-5.2 [facility] Comment on above: Performed By: #### C P, CDP #### [facility] [address] [place], [place] [id number] [employer] Inspector: Stu Baires MD Albumin/Glob Ratio 1.2 Normal 1.0-2.5 [facility] Comment on above: Performed By: #### C P, CDP #### [facility] [address] [place], [place] [id number] [employer] Inspector: Stu Baires MD Alkaline Phos 108 U/L High 35-104 [facility] Comment on above: Performed By: #### C P, CDP #### [facility] [address] [place], [place] [phone] [employer] Inspector: Stu Baires MD ALT [Catalytic activity/Vol] 30 U/L Normal 5-33 [facility] Comment on above: Performed By: #### C P, CDP #### [facility] [address] [place], [place] [phone] [employer] Inspector: Stu Baires MD Anion gap [Moles/Vol] 8 mmol/L Low 9-17 [facility] Comment on above: Performed By: #### C P, CDP #### [facility] [address] [place], [place] [phone] [employer] Inspector: Stu Baires MD AST [Catalytic activity/Vol] 29 U/L Normal <32 [facility] Comment on above: Performed By: #### C P, CDP #### [facility] [address] [place] [address] Dr. [place], [place] [id number] [employer] Inspector: Stu Baires MD Bilirubin [Mass/Vol] 0.5 mg/dL Normal 0.3-1.2 [facility] Comment on above: Performed By: #### C P, CDP #### [facility] [address] [place] [address] Dr. [place], [place] [phone] [employer] Inspector: Stu Baires MD BUN/CRE Ratio 18 Normal 9-20 [facility] Comment on above: Performed By: #### C P, CDP #### [facility] [address] [place] [address] Dr. [place], [place] [phone] [employer] Inspector: Stu Baires MD Calcium [Mass/Vol] 8.4 mg/dL Low 8.6-10.4 [facility] Comment on above: Performed By: #### C P, CDP #### [facility] [address] [place] [address] Dr. [place], [place] [id number] [employer] Inspector: Stu Baires MD Chloride [Moles/Vol] 105 mmol/L Normal 98-107 [facility] Comment on above: Performed By: #### C P, CDP #### [facility] [address] [place] [address] [employer] Inspector: Stu Baires MD CO2 [Moles/Vol] 23 mmol/L Normal 20-31 [facility] Comment on above: Performed By: #### C P, CDP #### [facility] [address] [place] [address] [employer] Inspector: Stu Baires MD Creatinine [Mass/Vol] 0.49 mg/dL Low 0.50-0.90 [facility] Comment on above: Performed By: #### C P, CDP #### [facility] [address] [place] [address] [employer] Inspector: Stu Baires MD GFR/1.73 sq M.predicted among non-blacks MDRD (S/P/Bld) [Vol rate/Area] mL/min/{1.73_m2} Normal >60 [facility] Comment on above: Result Comment: These results are not intended for use in patients <18 years of age. eGFR results are calculated without a race factor using the 2020 CKD-EPI equation. Careful clinical correlation is recommended, particularly when comparing to results calculated using previous equations. The CKD-EPI equation is less accurate in patients with extremes of muscle mass, extra-renal metabolism of creatine, excessive creatine ingestion, or following therapy that affects renal tubular secretion. Performed By: #### C P, CDP #### [facility] [address] [place], [place] [phone] [employer] Inspector: Stu Baires MD Glucose [Mass/Vol] 102 mg/dL High 70-99 [facility] Comment on above: Performed By: #### C P, CDP #### [facility] [address] [place] [address] [employer] Inspector: Stu Baires MD Potassium [Moles/Vol] 3.6 mmol/L Low 3.7-5.3 [facility] Comment on above: Performed By: #### C P, CDP #### [facility] [address] [place] [address] Dr. [place], [place] [phone] [employer] Inspector: Stu Baires MD Protein [Mass/Vol] 6.2 g/dL Low 6.4-8.3 [facility] Comment on above: Performed By: #### C P, CDP #### [facility] [address] [place] [address] Dr. [place], [place] 1038383 [employer] Inspector: Stu Baires MD Sodium [Moles/Vol] 136 mmol/L Normal 135-144 [facility] Comment on above: Performed By: #### C P, CDP #### [address] [place], [place] [phone] [employer] Inspector: Stu Baires MD Urea nitrogen [Mass/Vol] 9 mg/dL Normal 6-20 [facility] Comment on above: Performed By: #### C P, CDP #### [address] [place], [place] [phone] [employer] Inspector: Stu Baires MD Lactic Acidon 6 Lactate [Moles/Vol] 1.0 mmol/L Normal 0.5-2.2 [facility] Comment on above: Performed By: #### L ACTIC #### [address] [place], [place] 2008983 [employer] Inspector: Stu Baires MD Urinalysis, Routineon 2022 Bilirubin, SemiQt,Ur Negative Normal NEG [facility] Comment on above: Performed By: #### U MICAO, UA #### [facility] [address] [place] [address] Dr. [place], [place] [phone] [employer] Inspector: Stu Baires MD Blood, Urine Negative Normal NEG [facility] Comment on above: Performed By: #### U MICAO, UA #### [facility] [address] [place] [address] Dr. [place], [place] [phone] [employer] Inspector: Stu Baires MD Clarity (U) Clear Normal CLEAR [facility] Comment on above: Performed By: #### U MICAO, UA #### [facility] [address] [place] [address] Dr. [place], [place] [phone] [employer] Inspector: Stu Baires MD Color (U) Yellow Normal YEL [facility] Comment on above: Performed By: #### U MICAO, UA #### [facility] [address] [place], [place] [phone] [employer] Inspector: Stu Baires MD Glucose Ql (U) Negative Normal NEG [facility] Comment on above: Performed By: #### U MICAO, UA #### [facility] [address] [place] [address] Dr. [place], [place] [phone] [employer] Inspector: Stu Baires MD Ketones Ql (U) Negative Normal NEG [facility] Comment on above: Performed By: #### U MICAO, UA #### [facility] [address] [place] [address] Dr. [place], [place] 9682883 [employer] Inspector: Stu Baires MD Leukocyte esterase Test strip Ql (U) TRACE Abnormal NEG [facility] Comment on above: Performed By: #### U MICAO, UA #### [facility] [address] [place] [address] Dr. [place], [place] 7294083 [employer] Inspector: Stu Baires MD Nitrite,Ur Negative Normal NEG [facility] Comment on above: Performed By: #### U MICAO, UA #### [facility] [address] [place], [place] 5638383 [employer] Inspector: Stu Baires MD PH,Ur 6.0 Normal 5.0-9.0 [facility] Comment on above: Performed By: #### U MICAO, UA #### [facility] [address] [place], [place] 0940583 [employer] Inspector: Stu Baires MD Protein Ql (U) 1+ Abnormal NEG [facility] Comment on above: Performed By: #### U MICAO, UA #### [facility] [address] [place], [place] 2438383 [employer] Inspector: Stu Baires MD Spec. [place],Ur >1.030 High 1.010-1.020 [facility] Comment on above: Performed By: #### U MICAO, UA #### [facility] [address] [place], [place] 3599683 [employer] Inspector: Stu Baires MD Urobilinogen,Ur Normal Normal NORM [facility] Comment on above: Performed By: #### U MICAO, UA #### [facility] [address] [place] [address] Dr. [place], [place] 6941183 [employer] Inspector: Stu Baires MD Urinalysis,Microon 3 Bacteria 2+ Abnormal NONE [facility] Comment on above: Performed By: #### U MICAO, UA #### [facility] [address] [place] [address] Dr. [place], [place] [phone] [employer] Inspector: Stu Baires MD Epithelial cells LM Ql (Urine sed) 2 TO 5 Normal 0-25 [facility] Comment on above: Performed By: #### U MICAO, UA #### [facility] [address] [place] [address] Dr. [place], [place] [phone] [employer] Inspector: Stu Baires MD Mucus Strands 1+ Abnormal NONE [facility] Comment on above: Performed By: #### U MICAO, UA #### [facility] [address] [place], [place] 6305183 [employer] Inspector: Stu Baires MD Urine RBC's None Normal 0-2 [facility] Comment on above: Performed By: #### U MICAO, UA #### [facility] [address] [place], [place] 2806083 [employer] Inspector: Stu Baires MD Urine WBC's 2 TO 5 Normal 0-5 [facility] Comment on above: Performed By: #### U JEN, UA #### [facility] [address] [place] [address] [employer] Inspector: Stu Baires MD FREE T3on 06-19-2022 FREE T3 4.07 pg/mlL Critically high 2.18-3.98 [facility] Comment on above: Performed By: #### T 4, FT3, TSH ####[facility] [id number] [place] [address]DrPablo Yadav Bryant T4on 06-19-2022 T4 [Mass/Vol] 7.70 ug/dL Normal 4.80-13.90 [facility] Comment on above: Performed By: #### T 4, FT3, TSH ####[facility] [address] [place] [address]DrPablo Yadav Bryant TSHon 06-19-2022 TSH 4.022 uIU/mL Critically high 0.358-3.740 [facility] Comment on above: Performed By: #### T 4, FT3, TSH ####[facility] [address] [place] [address]Dr. Vicenta Bryant FREE T3on 05-23-2022 FREE T3 3.87 pg/mlL Normal 2.18-3.98 [facility] Comment on above: Performed By: #### T SH, FT3, T4 #### [facility] [address] [place] [address] [address] Vicenta Bryant T4on 05-23-2022 T4 [Mass/Vol] 7.00 ug/dL Normal 4.80-13.90 [facility] Comment on above: Performed By: #### T SH, FT3, T4 #### [facility] [address] [place] [address] Dr. Vicenta Bryant TSHon 05-23-2022 TSH 4.402 uIU/mL Critically high 0.358-3.740 [facility] Comment on above: Performed By: #### T SH, FT3, T4 #### [facility] [address] [place] [address] [address] Vicenta Bryant MG MAMM DX FLAQUITA 3D FU CADon 0 03-28-2022 MG MAMM DX FLAQUITA 3D FU CAD Patient: JOSÉ LUIS KURTZ Exam Date: 03/28/2022 : 1960 Gender:F Ordering : DR BULMARO PADRON . Admission #: [id number] Family : Order #: [id number] CLICK HERE TO VIEW EXAM RADIOLOGY REPORT PROCEDURE: MAMMOGRAM DIAGNOSTIC BILATERAL 3D FOLLOW UP CAD COMPARISON: US BREAST LEFT LIMITED, 07/20/2021. MG MAMM LT DIAG W CAD, 07/20/2021. MG MAMM SCREEN 3D FLAQUITA CAD, 02/28/2021. MAMMO POST BIOPSY LEFT, 07/25/2021. INDICATIONS: Lump in lower inner quadrant of left breast Calculator Name NCI Breast Cancer Risk Assessment Tool 5 Year Breast Cancer Risk 2.30% Lifetime Breast Cancer Risk 12.20% Personal Breast Cancer No Personal Ovarian Cancer No Treatments None Family Cancers Uncle-maternal with lung cancer at age 55. LOCATION: The [facility] BREAST COMPOSITION: Almost entirely fatty. FINDINGS: DIAGNOSTIC CATEGORY 2--BENIGN FINDING: RIGHT BREAST: No significant suspicious finding. No significant change has occurred. LEFT BREAST: No significant suspicious finding. Scattered benign-appearing calcifications. Stable biopsy marker clip within the posterior lower-inner quadrant. RECOMMENDATIONS: ROUTINE MAMMOGRAM AND CLINICAL EVALUATION IN 12 MONTHS. PLEASE NOTE: A NORMAL MAMMOGRAM DOES NOT EXCLUDE THE POSSIBILITY OF BREAST CANCER. A CLINICALLY SUSPICIOUS PALPABLE LUMP SHOULD BE BIOPSIED. Dictated by: Claudy Cobian M.D. on 03/28/2022 at 11:29 Approved by: Claudy Cobian M.D. on 03/28/2022 at 11:35 Normal The [facility] OCC BLD IMMUNO SCREENon 03-15 OCCULT BLOOD Negative Normal NEGATIVE [facility] Comment on above: Performed By: #### O BSCRN #### [facility] [address] [place] [id number] Vicenta Bryant INSULINon 03-07-2022 Insulin 10.8 uIU/mL Normal 2.6-24.9 [facility] Comment on above: Performed By: #### I NSULIN #### [facility] [address] [place], [place] [address] Dr. Vicenta Bryant T4, T3U, FTI [facility]ABC[facility]on 03-07 Free Thyroxine Index 1.9 Normal 1.2-4.9 [facility] Comment on above: Performed By: #### T HYLC ####[facility] [address] [place], [place] [address]Vh. Vicenta Bryant T3 Uptake 25 % Normal 24-39 [facility] Comment on above: Performed By: #### T HYLC ####[facility] [address] [place], [place] [address]QzPablo Bryant T4 [Mass/Vol] 7.6 ug/dL Normal 4.5-12.0 [facility] Comment on above: Performed By: #### T HYLC ####[facility] [address] [place], [place] [address]MrPablo Bryant VIT D 25-[place] [facility]on 2021 Vitamin D, 25-Hydroxy 24.3 ng/mL Critically low 30.0-100.0 [facility] Comment on above: Result Comment: Susi min D deficiency has been defined by the [place] of [employer] and an Endocrine Society practice guideline as a level of serum 25-OH vitamin D less than 20 ng/mL (1,2). The Endocrine Society went on to further define vitamin D insufficiency as a level between 21 and 29 ng/mL (2). 1. IOM ([place] of [employer]). 2010. Dietary reference intakes for calcium and D. [place]: The National Academies Press. 2. Dea ALICEA, Angelika [place], Shawn SHEARER, et al. Evaluation, treatment, and prevention of vitamin D deficiency: an Endocrine Society clinical practice guideline. JCEM. 2010; 96(7):1911-30. Performed By: #### V ITADLC ####[facility] [address] [place] [id number] Bryant CBC AUTO DIFFon 03-06-2022 BASO # 0.0 103/ul Normal 0.0-0.1 [facility] Comment on above: Performed By: #### C BC #### [facility] [address] [place] [address] Dr. Vicenta Bryant Basophils/100 WBC (Bld) 0.6 % Normal 0.2-2.0 [facility] Comment on above: Performed By: #### C BC #### [facility] [address] [place] [address] Dr. Vicenta Bryant EO # 0.1 103/ul Normal 0.0-0.7 [facility] Comment on above: Performed By: #### C BC #### [facility] [address] [place] [address] Dr. Vicenta Bryant Eosinophils/100 WBC (Bld) 1.1 % Normal 0.9-7.0 [facility] Comment on above: Performed By: #### C BC #### [facility] [address] [place] [address] Dr. Vicenta Bryant Erythrocyte distribution width (RBC) [Ratio] 12.6 % Normal 11.0-15.0 [facility] Comment on above: Performed By: #### C BC #### [facility] [address] [place] [address] Dr. Vicenta Bryant Hematocrit (Bld) [Volume fraction] 41.1 % Normal 36.0-48.0 [facility] Comment on above: Performed By: #### C BC #### [facility] [address] [place] [address] Dr. Vicenta Bryant Hemoglobin (Bld) [Mass/Vol] 13.4 g/dL Normal 12.0-16.0 [facility] Comment on above: Performed By: #### C BC #### [facility] [address] [place] [address] Dr. Vicenta Bryant IG # 0.01 10e3/ul Normal 0.00-0.03 [facility] Comment on above: Performed By: #### C BC #### [facility] [address] [place] [address] Dr. Vicenta Bryant IG % 0.2 % Normal 0.0-0.5 [facility] Comment on above: Performed By: #### C BC #### [facility] [address] [place] [address] [address] Vicenta Bryant LYMPH # 1.6 103/ul Normal 1.2-3.8 [facility] Comment on above: Performed By: #### C BC #### [facility] [address] [place] [address] Dr. Vicenta Bryant Lymphocytes/100 WBC (Bld) 25.6 % Normal 20.5-60.0 [facility] Comment on above: Performed By: #### C BC #### [facility] [address] [place] [address] Dr. Vicenta Bryant MANUAL DIFF REQ NO Normal [facility] Comment on above: Performed By: #### C BC #### [facility] [address] [place] [address] Dr. Vicenta Bryant MCH (RBC) [Entitic mass] 31.0 pg Normal 26.7-34.0 [facility] Comment on above: Performed By: #### C BC #### [facility] [address] [place] [address] Dr. Vicenta Bryant MCHC (RBC) [Mass/Vol] 32.6 g/dL Normal 29.9-35.2 [facility] Comment on above: Performed By: #### C BC #### [facility] [address] [place] [address] Dr. Vicenta Bryant MCV (RBC) [Entitic vol] 95.1 fL Normal 81.0-99.0 [facility] Comment on above: Performed By: #### C BC #### [facility] [address] [place] [address] Dr. Vicenta Bryant MONO # 0.5 103/ul Normal 0.3-0.8 [facility] Comment on above: Performed By: #### C BC #### [facility] [address] [place] [address] Dr. Vicenta Bryant Monocytes/100 WBC (Bld) 7.8 % Normal 1.7-12.0 [facility] Comment on above: Performed By: #### C BC #### [facility] [address] [place], [place] [id number] Dr. Vicenta Bryant NEUT # 4.0 103/ul Normal 1.4-6.5 [facility] Comment on above: Performed By: #### C BC #### [facility] [address] [place] [address] Dr. Vicenta Bryant Neutrophils/100 WBC (Bld) 64.7 % Normal 43.0-75.0 [facility] Comment on above: Performed By: #### C BC #### [facility] [address] [place] [address] Dr. Vicenta Bryant Platelet mean volume (Bld) [Entitic vol] 10.8 fL Normal 9.5-13.5 [facility] Comment on above: Performed By: #### C BC #### [facility] [address] [place] [address] Dr. Vicenta Bryant PLT 210 103/ul Normal 150-450 [facility] Comment on above: Performed By: #### C BC #### [facility] [address] [place] [address] Dr. Vicenta Bryant RBC 4.32 106/ul Normal 4.20-5.40 [facility] Comment on above: Performed By: #### C BC #### [facility] [address] [place] [address] Dr. Vicenta Bryant WBC 6.2 103/ul Normal 4.0-11.0 [facility] Comment on above: Performed By: #### C BC #### [facility] [address] [place] [address] Dr. Vicenta Bryant GLYCOHEMOGLOBIN A1Con 2021 ADA RECOMMENDATION SEE BELOW Normal [facility] Comment on above: Result Comment: ADA RECOMMENDED LIMIT 4.0 - 6.0 ADA THERAPEUTIC TARGET < 7.0 ACTION SUGGESTED > 7.0 Performed By: #### A 1C #### [facility] [address] [place] [address] Dr. Vicenta Bryant Glucose [Mass/Vol] 91 mg/dL Normal [facility] Comment on above: Performed By: #### A 1C #### [facility] [address] [place] [address] Dr. Vicenta Bryant HbA1c (Bld) [Mass fraction] 4.8 % Normal 4.5-6.2 [facility] Comment on above: Performed By: #### A 1C #### [facility] [address] [place], [place] [address] Dr. Vicenta Bryant IRONon 03-06-2022 Iron [Mass/Vol] 73.0 ug/dL Normal 50.0-170.0 [facility] Comment on above: Performed By: #### B 12FOL, IRON ####[facility] [address] [place], [place] [address]Vo. Vicenta Bryant LIPID PROFILEon 03-06-2022 CHOL-HDL RATIO NORM SEE BELOW Normal [facility] Comment on above: Result Comment: 3.3 - 4.4 LOW RISK 4.4 - 7.1 AVERAGE RISK 7.1 - 11.0 MODERATE RISK >11.0 HIGH RISK Performed By: #### L IPID, TSH, CMP ####[facility] [address] [place], [place] [address]Rz. Vicenta Bryant Cholesterol [Mass/Vol] 134 mg/dL Normal <=200 [facility] Comment on above: Performed By: #### L IPID, TSH, CMP ####[facility] [address] [place], [place] [address]Xl. Vicenta Bryant Cholesterol in HDL [Mass/Vol] 41 mg/dL Normal 40-60 [facility] Comment on above: Performed By: #### L IPID, TSH, CMP ####[facility] [address] [place], [place] [address]Oc. Vicenta Bryant Cholesterol in LDL [Mass/Vol] 81.2 mg/dL Normal [facility] Comment on above: Performed By: #### L IPID, TSH, CMP ####[facility] [address] [place], [place] [address]Sc. Vicenta Bryant Cholesterol.total/C holesterol in HDL [Mass ratio] 3.3 {ratio} Normal [facility] Comment on above: Performed By: #### L IPID, TSH, CMP ####[facility] [address] [place] [address]Dr. Vicenta Bryant HDL NORMAL > or = 60 mg/dl - LO W CARDIOVASCULAR RISK <40 mg/dl - HIGH CARDIOVASCULAR RISK Normal [facility] Comment on above: Performed By: #### L IPID, TSH, CMP ####[facility] [address] [place] [address]Dr. Vicenta Bryant LDL CALC NORMAL SEE BELOW Normal [facility] Comment on above: Result Comment: <100 mg/dl OPTIMAL 100 - 129 mg/dl NEAR OR ABOVE OPTIMAL 130 - 159 mg/dl BORDERLINE HIGH 160 - 189 mg/dl HIGH >190 mg/dl VERY HIGH Performed By: #### L IPID, TSH, CMP ####[facility] [address] [place], [place] [address]Dr. Vicenta Bryant Triglyceride [Mass/Vol] 59 mg/dL Normal <=150 The [facility] Comment on above: Performed By: #### L IPID, TSH, CMP ####[facility] [address] [place], [place] [address]Dr. Vicenta Bryant VLDL CALC 11.8 mg/dL Normal The [facility] Comment on above: Performed By: #### L IPID, TSH, CMP ####[facility] [address] [place], [place] [address]Dr. Vicenta Bryant PROF 14(COMP METB)on 022 Albumin [Mass/Vol] 3.7 g/dL Normal 3.4-5.0 [facility] Comment on above: Performed By: #### L IPID, TSH, CMP ####[facility] [address] [place] [address]Dr. Vicenta Bryant Albumin/Globulin [Mass ratio] 1.1 {ratio} Normal [facility] Comment on above: Performed By: #### L IPID, TSH, CMP ####[facility] [address] [place] [address]Dr. Vicenta Bryant ALP [Catalytic activity/Vol] 115 U/L Normal 46-116 The [facility] Comment on above: Performed By: #### L IPID, TSH, CMP ####[facility] [address] [place] [address]Dr. Vicenta Bryant ALT [Catalytic activity/Vol] 38 U/L Normal 14-59 The [facility] Comment on above: Performed By: #### L IPID, TSH, CMP ####[facility] [address] [place] [address]Dr. Vicenta Bryant Anion gap [Moles/Vol] 12.4 mmol/L Normal [facility] Comment on above: Performed By: #### L IPID, TSH, CMP ####[facility] [address] [place] [address]Dr. Vicenta Bryant AST [Catalytic activity/Vol] 27 U/L Normal 15-37 The [facility] Comment on above: Performed By: #### L IPID, TSH, CMP ####[facility] [address] [place], [place] [address]Dr. Vicenta Bryant Bilirubin [Mass/Vol] 0.3 mg/dL Normal 0.2-1.0 The [facility] Comment on above: Performed By: #### L IPID, TSH, CMP ####[facility] [address] [place] [address]Dr. Vicenta Bryant Calcium [Mass/Vol] 8.9 mg/dL Normal 8.5-10.1 The [facility] Comment on above: Performed By: #### L IPID, TSH, CMP ####[facility] [address] [place], [place] [address]Dr. Vicenta Bryant Chloride [Moles/Vol] 104 mmol/L Normal 98-107 The [facility] Comment on above: Performed By: #### L IPID, TSH, CMP ####[facility] [address] [place] [address]Dr. Vicenta Bryant CO2 [Moles/Vol] 27.8 mmol/L Normal 21.0-32.0 The [facility] Comment on above: Performed By: #### L IPID, TSH, CMP ####[facility] [address] [place] [address]Dr. Vicenta Bryant Creatinine [Mass/Vol] 0.53 mg/dL Critically low 0.55-1.02 The [facility] Comment on above: Performed By: #### L IPID, TSH, CMP ####[facility] [address] [place] [address]Dr. Vicenta Bryant EGFR-AF YEMENI >60 Normal >=60 The [facility] Comment on above: Performed By: #### L IPID, TSH, CMP ####[facility] [address] [place] [address]Dr. Jocylan Bryant EGFR-NON AF YEMENI >60 Normal >=60 The [facility] Comment on above: Performed By: #### L IPID, TSH, CMP ####[facility] [address] [place], [place] [address]Dr. Vicenta Bryant Globulin (S) [Mass/Vol] 3.3 g/dL Normal The [facility] Comment on above: Performed By: #### L IPID, TSH, CMP ####[facility] [address] [place], [place] [address]Dr. Vicenta Bryant Glucose [Mass/Vol] 88 mg/dL Normal 74-106 The [facility] Comment on above: Performed By: #### L IPID, TSH, CMP ####[facility] [address] [place], [place] [address]Dr. Jocydawn Bryant Potassium [Moles/Vol] 4.4 mmol/L Normal 3.5-5.1 The [facility] Comment on above: Performed By: #### L IPID, TSH, CMP ####[facility] [address] [place], [place] [address]Dr. Vicenta Bryant Protein [Mass/Vol] 7.0 g/dL Normal 6.4-8.2 The [facility] Comment on above: Performed By: #### L IPID, TSH, CMP ####[facility] [address] [place], [place] [address]Dr. Vicenta Bryant Sodium [Moles/Vol] 139 mmol/L Normal 136-145 The [facility] Comment on above: Performed By: #### L IPID, TSH, CMP ####[facility] [address] [place], [place] [address]Dr. Vicenta Bryant Urea nitrogen [Mass/Vol] 10.0 mg/dL Normal 7.0-18.0 [facility] Comment on above: Performed By: #### L IPID, TSH, CMP ####[facility] [address] [place] [id number]. Vicenta Bryant Urea nitrogen/Creatinine [Mass ratio] 18.8 mg/mg Normal [facility] Comment on above: Performed By: #### L IPID, TSH, CMP ####[facility] [address] [place] [id number]. Vicenta Bryant TSHon 03-06-2022 TSH 4.364 uIU/mL Critically high 0.358-3.740 [facility] Comment on above: Performed By: #### L IPID, TSH, CMP ####[facility] [address] [place] [id number]. Vicenta Bryant VIT B12 AND FOLATEon 022 Cobalamin (Vitamin B12) [Mass/Vol] 761.0 pg/mL Normal 193.0-986.0 [facility] Comment on above: Performed By: #### B 12FOL, IRON ####[facility] [address] [place] [address]Dr. Vicenta Bryant FOLATE 15.40 ng/mL Normal 8.60-58.90 [facility] Comment on above: Performed By: #### B 12FOL, IRON ####[facility] [address] [place] [address]Dr. Vicenta Bryant MAMMO POST BIOPSY LEFTon MAMMO POST BIOPSY LEFT Patient: JOSÉ LUIS KURTZ Exam Date: 07/25/2021 : 1960 Gender:F Ordering : DR BULMARO PADRON . Admission #: [id number] Family : Order #: [id number] CLICK HERE TO VIEW EXAM This report includes an Addendum and supersedes previous reports for this exam. RADIOLOGY REPORT PROCEDURE: MAMMOGRAM POST BIOPSY IMAGES COMPARISON: MG MAMM LT DIAG W CAD, 07/20/2021. INDICATIONS: Lesion of breast BREAST COMPOSITION: Almost entirely fatty. FINDINGS: BIOPSY MARKER: A metallic marker has been placed in the targeted location within the lower-inner quadrant of the left breast. BREAST FINDINGS: Expected post biopsy findings. RECOMMENDATIONS: Dictated by: Claudy Cobian M.D. on 07/25/2021 at 13:42 Approved by: Claudy Cobian M.D. on 07/25/2021 at 14:23 ADDENDUM: FINDINGS: DIAGNOSTIC CATEGORY 3--PROBABLY BENIGN FINDING. THE FOLLOWING FINDING(S) HAS A HIGH PROBABILITY OF A BENIGN ETIOLOGY: RECOMMENDATIONS: SHORT TERM FOLLOW-UP DIAGNOSTIC MAMMOGRAM LEFT BREAST IN 6 MONTHS. Dictated by: Claudy Cobian M.D. on 08/03/2021 at 07:08 Approved by: Claudy Cobian M.D. on 08/03/2021 at 07:08 Normal [facility] US VAC ASST BX BRST LT W CLI Aryan 07-25-2021 US VAC ASST BX BRST LT W CLIP Patient: JOSÉ LUIS KURTZ Exam Date: 07/25/2021 : 1960 Gender:F Ordering : DR BULMARO PADRON . Admission #: [id number] Family : Order #: [id number] CLICK HERE TO VIEW EXAM This report includes an Addendum and supersedes previous reports for this exam. RADIOLOGY REPORT PROCEDURE: ULTRASOUND BIOPSY VACCUUM ASSISTED LEFT WITH CLIP COMPARISON: US BREAST LEFT LIMITED, 07/20/2021. INDICATIONS: Lesion of breast DESCRIPTION: After obtaining informed consent, a vacuum assisted ultrasound-guided biopsy was performed in the usual sterile manner. The location of the biopsy was then marked as indicated below. FINDINGS: RECOMMENDATIONS: SPECIMEN #, LOCATION: 3 core samples; 9:00 left breast heterogeneous slightly hyperechoic mass.. BIOPSY NEEDLE: 13 gauge Elite (r) vacuum core biopsy needle. MARKERS(S) PLACED: A single metallic marker was placed in the appropriate targeted location. MEDICATION: Buffered 1% lidocaine with epinephrine administered locally. COMPLICATIONS: None. PATHOLOGY LAB: Pending. CONCLUSION: 1. Uneventful ultrasound-guided breast biopsy. 2. Pathology results are pending. An addendum to this report will be provided after pathology results are available. Dictated by: Claudy Cobian M.D. on 07/25/2021 at 14:24 Approved by: Claudy Cobian M.D. 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 This report was transmitted to the referring physician's office on July 31, 2021, and the office called to confirm receipt. Dictated by: Claudy Cobian M.D. on 08/03/2021 at 07:06 Approved by: Claudy Cobian M.D. on 08/03/2021 at 07:07 Normal The [facility] MG MAMM LT DIAG W CADon 01-0 MG MAMM LT DIAG W CAD Patient: JOSÉ LUIS KURTZ Exam Date: 07/20/2021 : 1960 Gender:F Ordering : DR BULMARO PADRON . Admission #: [id number] Family : Order #: [id number] CLICK HERE TO VIEW EXAM RADIOLOGY REPORT PROCEDURE: MAMMOGRAM LEFT DIAGNOSTIC DIGITAL WITH COMPUTER AIDED DETECTION, 07/20/2021, 13:53 ULTRASOUND BREAST LEFT LIMITED, 07/20/2021, 14:35 COMPARISON: MG MAMM SCREEN 3D FLAQUITA CAD, 02/28/2021. INDICATIONS: Lump in lower inner quadrant of left breast Calculator Name NCI Breast Cancer Risk Assessment Tool 5 Year Breast Cancer Risk 1.50% Lifetime Breast Cancer Risk 8.50% Personal Breast Cancer No Personal Ovarian Cancer No Treatments None Family Cancers Uncle-maternal with lung cancer at age 55. LOCATION: The [facility] BREAST COMPOSITION: Almost entirely fatty. FINDINGS: DIAGNOSTIC CATEGORY 4--SUSPICIOUS FOR MALIGNANCY. FINDING DOES NOT EXHIBIT CLASSIC FINDINGS OF BREAST CANCER: LEFT BREAST: Subtle 12 mm opacity within the lower-inner quadrant deep to the skin surface marker corresponding to patient's palpable lump. Ultrasound evaluation demonstrates a 14 mm mixed echogenicity oval lesion at the 9 o'clock position of uncertain etiology. Given the patient's tenderness and recent development, including initial mild overlying bruising or rash which has resolved this could represent an inflammatory process. Consider follow-up ultrasound evaluation in 1 month versus ultrasound-guided biopsy at this time. Findings, recommendations, and alternatives were discussed with the patient. RECOMMENDATIONS: ULTRASOUND-GUIDED CORE BIOPSY: LEFT BREAST PLEASE NOTE: A NORMAL MAMMOGRAM DOES NOT EXCLUDE THE POSSIBILITY OF BREAST CANCER. A CLINICALLY SUSPICIOUS PALPABLE LUMP SHOULD BE BIOPSIED. Dictated by: Claudy Cobian M.D. on 07/20/2021 at 14:55 Approved by: Claudy Cobian M.D. on 07/20/2021 at 15:20 Normal The [facility] US BREAST LEFT LIMITEDon US BREAST LEFT LIMITED Patient: JOSÉ LUIS KURTZ Exam Date: 07/20/2021 : 1960 Gender:F Ordering : DR BULMARO PADRON . Admission #: [id number] Family : Order #: [id number] CLICK HERE TO VIEW EXAM RADIOLOGY REPORT PROCEDURE: MAMMOGRAM LEFT DIAGNOSTIC DIGITAL WITH COMPUTER AIDED DETECTION, 07/20/2021, 13:53 ULTRASOUND BREAST LEFT LIMITED, 07/20/2021, 14:35 COMPARISON: MG MAMM SCREEN 3D FLAQUITA CAD, 02/28/2021. INDICATIONS: Lump in lower inner quadrant of left breast Calculator Name NCI Breast Cancer Risk Assessment Tool 5 Year Breast Cancer Risk 1.50% Lifetime Breast Cancer Risk 8.50% Personal Breast Cancer No Personal Ovarian Cancer No Treatments None Family Cancers Uncle-maternal with lung cancer at age 55. LOCATION: The [facility] BREAST COMPOSITION: Almost entirely fatty. FINDINGS: DIAGNOSTIC CATEGORY 4--SUSPICIOUS FOR MALIGNANCY. FINDING DOES NOT EXHIBIT CLASSIC FINDINGS OF BREAST CANCER: LEFT BREAST: Subtle 12 mm opacity within the lower-inner quadrant deep to the skin surface marker corresponding to patient's palpable lump. Ultrasound evaluation demonstrates a 14 mm mixed echogenicity oval lesion at the 9 o'clock position of uncertain etiology. Given the patient's tenderness and recent development, including initial mild overlying bruising or rash which has resolved this could represent an inflammatory process. Consider follow-up ultrasound evaluation in 1 month versus ultrasound-guided biopsy at this time. Findings, recommendations, and alternatives were discussed with the patient. RECOMMENDATIONS: ULTRASOUND-GUIDED CORE BIOPSY: LEFT BREAST PLEASE NOTE: A NORMAL MAMMOGRAM DOES NOT EXCLUDE THE POSSIBILITY OF BREAST CANCER. A CLINICALLY SUSPICIOUS PALPABLE LUMP SHOULD BE BIOPSIED. Dictated by: Claudy Cobian M.D. on 07/20/2021 at 14:55 Approved by: Claudy Cobian M.D. on 07/20/2021 at 15:20 Normal [facility] JOSE Antinuclear Antibodieson 08-08-2020 JOSE IFA Note 1 Normal . [facility] Comment on above: Order Comment: Speci men Comment: Test(s) 338158-Wqwh-W1 WATER REGISTRAR (Fibrillarin)(RDL) Specimen Comment: was developed and its performance characteristics Specimen Comment: determined by [facility]. It has not been cleared or approved Specimen Comment: by the Food and Drug Administration. Specimen Comment: Test(s) 203011-Hpzi-IR/Scl-75 Ab (RDL) Specimen Comment: was developed and its performance characteristics Specimen Comment: determined by [facility]. It has not been cleared or approved Specimen Comment: by the Food and Drug Administration. Result Comment: A po sitive JOSE result may occur in healthy individuals (low titer) or be associated with a variety of diseases. See interpretation chart which is not all inclusive: Pattern Antigen Detected Suggested Disease Association Homogeneous DNA(ds,ss), SLE - High titers Nucleosomes, Histones Drug-induced SLE Speckled Sm, WATER REGISTRAR, SCL-70, SLE,MCTD,PSS (diffuse form), SS-A/SS-B Sjogrens Nucleolar SCL-70, PM-1/SCL High titers Scleroderma, PM/DM Centromere Centromere PSS (limited form) w/Crest syndrome variable Nuclear Dot Sp100,m56-xbuqik Primary Biliary Cirrhosis Nuclear GP210, Primary Biliary Cirrhosis Membrane rosi A,B,C Performed at: [facility] [address] [id number] [employer] Inspector: David Pace PhD, Phone: [phone] Performed By: #### A NTIR, RNA POLYMR, HEP C, ANTI TH TO, HBCAB, PM-SCL ABS, U3 WATER REGISTRAR, HBSAG, HBSAB, JOSE #### [facility] , #### CRP, CK, CMP #### [facility] [address] Antinuclear Abs, IFA Positive Critically abnormal . [facility] Comment on above: Order Comment: Speci men Comment: Test(s) 351210-Giym-Q9 WATER REGISTRAR (Fibrillarin)(RDL) Specimen Comment: was developed and its performance characteristics Specimen Comment: determined by [facility]. It has not been cleared or approved Specimen Comment: by the Food and Drug Administration. Specimen Comment: Test(s) 210063-Acax-DX/Scl-75 Ab (RDL) Specimen Comment: was developed and its performance characteristics Specimen Comment: determined by [facility]. It has not been cleared or approved Specimen Comment: by the Food and Drug Administration. Result Comment: Nega tive <1:80 Borderline 1:80 Positive >1:80 Performed By: #### A NTIR, RNA POLYMR, HEP C, ANTI TH TO, HBCAB, PM-SCL ABS, U3 WATER REGISTRAR, HBSAG, HBSAB, JOSE #### [facility] , #### CRP, CK, CMP #### [facility] [address] [place] [address] [place] Speckled Pattern 1:640 High . [facility] Comment on above: Order Comment: Speci men Comment: Test(s) 799760-Knab-G3 WATER REGISTRAR (Fibrillarin)(RDL) Specimen Comment: was developed and its performance characteristics Specimen Comment: determined by [facility]. It has not been cleared or approved Specimen Comment: by the Food and Drug Administration. Specimen Comment: Test(s) 602729-Xuql-WW/Scl-75 Ab (RDL) Specimen Comment: was developed and its performance characteristics Specimen Comment: determined by [facility]. It has not been cleared or approved Specimen Comment: by the Food and Drug Administration. Performed By: #### A NTIR, RNA POLYMR, HEP C, ANTI TH TO, HBCAB, PM-SCL ABS, U3 WATER REGISTRAR, HBSAG, HBSAB, JOSE #### [facility] , #### CRP, CK, CMP #### [facility] [address] [place] [address] [place] Anti-RNPon 08-08-2020 Anti-WATER REGISTRAR <0.2 Normal 0.0-0.9 [facility] Comment on above: Order Comment: Speci men Comment: Test(s) 821941-Zupm-Y6 WATER REGISTRAR (Fibrillarin)(RDL) Specimen Comment: was developed and its performance characteristics Specimen Comment: determined by [facility]. It has not been cleared or approved Specimen Comment: by the Food and Drug Administration. Specimen Comment: Test(s) 370150-Npar-TM/Scl-75 Ab (RDL) Specimen Comment: was developed and its performance characteristics Specimen Comment: determined by [facility]. It has not been cleared or approved Specimen Comment: by the Food and Drug Administration. Result Comment: Perf ormed at: - [facility] [address] [id number] [employer] Inspector: David Pace PhD, Phone: [phone] Performed By: #### A NTIR, RNA POLYMR, HEP C, ANTI TH TO, HBCAB, PM-SCL ABS, U3 WATER REGISTRAR, HBSAG, HBSAB, JOSE #### [facility] , #### CRP, CK, CMP #### [address] C-Reactive Proteinon CRP [Mass/Vol] 0.6 mg/dL Normal 0.0-1.0 [facility] Comment on above: Result Comment: PERF ORMED BY: [place] [address] PATHOLOGIST LUMP MACHINE OPERATOR BEAU JOHNSON M.D. Performed By: #### A NTIR, RNA POLYMR, HEP C, ANTI TH TO, HBCAB, PM-SCL ABS, U3 WATER REGISTRAR, HBSAG, HBSAB, JOSE #### [facility] , #### CRP, CK, CMP #### [address] Complement C3on 08-08-2020 Complement C3 125 mg/dL Normal 82-167 [facility] Comment on above: Result Comment: Perf ormed at: - [facility] [address] [id number] [employer] Inspector: David Pace PhD, Phone: [phone] Performed By: #### A NTIR, RNA POLYMR, HEP C, ANTI TH TO, HBCAB, PM-SCL ABS, U3 WATER REGISTRAR, HBSAG, HBSAB, JOSE #### [facility] , #### CRP, CK, CMP #### [address] Complement C4on 08-08-2020 Complement C4 17 mg/dL Normal 12-38 [facility] Comment on above: Performed By: #### A NTIR, RNA POLYMR, HEP C, ANTI TH TO, HBCAB, PM-SCL ABS, U3 WATER REGISTRAR, HBSAG, HBSAB, JOSE #### [facility] , #### CRP, CK, CMP #### [address] Complement Total (CH50)on Complement Total (CH50) >60 Normal >41 [facility] Comment on above: Result Comment: Age Male Female 1 - 30 days Not Estab. Not Estab. 31 days - 6 months >32 >20 7 months - 17 years >39 >39 >17 years >41 >41 NOTE: The adult ( >17 years ) reference interval range is used to flag abnormals on this report. If the patient is 17 years old or younger, use the table above to determine out of range values. Performed at: - [facility] [address] [id number] [employer] Inspector: David Pace PhD, Phone: [phone] PERFORMED BY: [place] [address] PATHOLOGIST LUMP MACHINE OPERATOR BEAU JOHNSON M.D. Performed By: #### A NTIR, RNA POLYMR, HEP C, ANTI TH TO, HBCAB, PM-SCL ABS, U3 WATER REGISTRAR, HBSAG, HBSAB, JOSE #### [facility] , #### CRP, CK, CMP #### [address] Complete Blood Count Auto Di ffon 08-08-2020 Basophils (Bld) [#/Vol] 0.0 10*3/uL Normal 0.0-0.2 [facility] Comment on above: Performed By: #### A NTIR, RNA POLYMR, HEP C, ANTI TH TO, HBCAB, PM-SCL ABS, U3 WATER REGISTRAR, HBSAG, HBSAB, JOSE #### [facility] , #### CRP, CK, CMP #### [facility] [address] [place] [address] Basophils/100 WBC (Bld) 0.4 % Normal . [facility] Comment on above: Performed By: #### A NTIR, RNA POLYMR, HEP C, ANTI TH TO, HBCAB, PM-SCL ABS, U3 WATER REGISTRAR, HBSAG, HBSAB, JOSE #### [facility] , #### CRP, CK, CMP #### [address] Eosinophils (Bld) [#/Vol] 0.0 10*3/uL Normal 0.0-0.45 [facility] Comment on above: Performed By: #### A NTIR, RNA POLYMR, HEP C, ANTI TH TO, HBCAB, PM-SCL ABS, U3 WATER REGISTRAR, HBSAG, HBSAB, JOSE #### [facility] , #### CRP, CK, CMP #### [address] Eosinophils/100 WBC (Bld) 0.6 % Normal . [facility] Comment on above: Performed By: #### A NTIR, RNA POLYMR, HEP C, ANTI TH TO, HBCAB, PM-SCL ABS, U3 WATER REGISTRAR, HBSAG, HBSAB, JOSE #### [facility] , #### CRP, CK, CMP #### [address] Erythrocyte distribution width (RBC) [Ratio] 12.7 % Normal 11.9-15.3 [facility] Comment on above: Performed By: #### A NTIR, RNA POLYMR, HEP C, ANTI TH TO, HBCAB, PM-SCL ABS, U3 WATER REGISTRAR, HBSAG, HBSAB, JOSE #### [facility] , #### CRP, CK, CMP #### [address] Hematocrit (Bld) [Volume fraction] 40.9 % Normal 34.0-46.4 [facility] Comment on above: Performed By: #### A NTIR, RNA POLYMR, HEP C, ANTI TH TO, HBCAB, PM-SCL ABS, U3 WATER REGISTRAR, HBSAG, HBSAB, JOSE #### [facility] , #### CRP, CK, CMP #### [address] Hemoglobin (Bld) [Mass/Vol] 13.5 g/dL Normal 11.8-15.4 [facility] Comment on above: Performed By: #### A NTIR, RNA POLYMR, HEP C, ANTI TH TO, HBCAB, PM-SCL ABS, U3 WATER REGISTRAR, HBSAG, HBSAB, JOSE #### [facility] , #### CRP, CK, CMP #### [address] Lymphocytes (Bld) [#/Vol] 1.7 10*3/uL Normal 1.00-4.8 [facility] Comment on above: Performed By: #### A NTIR, RNA POLYMR, HEP C, ANTI TH TO, HBCAB, PM-SCL ABS, U3 WATER REGISTRAR, HBSAG, HBSAB, JOSE #### [facility] , #### CRP, CK, CMP #### [address] Lymphocytes/100 WBC (Bld) 25.7 % Normal . [facility] Comment on above: Performed By: #### A NTIR, RNA POLYMR, HEP C, ANTI TH TO, HBCAB, PM-SCL ABS, U3 WATER REGISTRAR, HBSAG, HBSAB, JOSE #### [facility] , #### CRP, CK, CMP #### [address] MCH (RBC) [Entitic mass] 32.9 g/dL Normal 32.0-35.0 [facility] Comment on above: Performed By: #### A NTIR, RNA POLYMR, HEP C, ANTI TH TO, HBCAB, PM-SCL ABS, U3 WATER REGISTRAR, HBSAG, HBSAB, JOSE #### [facility] , #### CRP, CK, CMP #### [address] MCH (RBC) [Entitic mass] 31.1 pg Normal 24.7-34.3 [facility] Comment on above: Performed By: #### A NTIR, RNA POLYMR, HEP C, ANTI TH TO, HBCAB, PM-SCL ABS, U3 WATER REGISTRAR, HBSAG, HBSAB, JOSE #### [facility] , #### CRP, CK, CMP #### [address] MCV (RBC) [Entitic vol] 94.4 fL Normal 80-100 [facility] Comment on above: Performed By: #### A NTIR, RNA POLYMR, HEP C, ANTI TH TO, HBCAB, PM-SCL ABS, U3 WATER REGISTRAR, HBSAG, HBSAB, JOSE #### [facility] , #### CRP, CK, CMP #### [address] Monocytes (Bld) [#/Vol] 0.6 10*3/uL Normal 0.0-0.8 [facility] Comment on above: Performed By: #### A NTIR, RNA POLYMR, HEP C, ANTI TH TO, HBCAB, PM-SCL ABS, U3 WATER REGISTRAR, HBSAG, HBSAB, JOSE #### [facility] , #### CRP, CK, CMP #### [address] Monocytes/100 WBC (Bld) 8.9 % Normal . [facility] Comment on above: Performed By: #### A NTIR, RNA POLYMR, HEP C, ANTI TH TO, HBCAB, PM-SCL ABS, U3 WATER REGISTRAR, HBSAG, HBSAB, JOSE #### [facility] , #### CRP, CK, CMP #### [address] Neutrophils (Bld) [#/Vol] 4.2 10*3/uL Normal 1.8-7.7 [facility] Comment on above: Performed By: #### A NTIR, RNA POLYMR, HEP C, ANTI TH TO, HBCAB, PM-SCL ABS, U3 WATER REGISTRAR, HBSAG, HBSAB, JOSE #### [facility] , #### CRP, CK, CMP #### [address] Neutrophils/100 WBC (Bld) 64.4 % Normal . [facility] Comment on above: Performed By: #### A NTIR, RNA POLYMR, HEP C, ANTI TH TO, HBCAB, PM-SCL ABS, U3 WATER REGISTRAR, HBSAG, HBSAB, JOSE #### [facility] , #### CRP, CK, CMP #### [address] Nucleated RBC/100 WBC (Bld) [Ratio] 0.1 % Normal 0-0.5 [facility] Comment on above: Performed By: #### A NTIR, RNA POLYMR, HEP C, ANTI TH TO, HBCAB, PM-SCL ABS, U3 WATER REGISTRAR, HBSAG, HBSAB, JOSE #### [facility] , #### CRP, CK, CMP #### [address] Platelet mean volume (Bld) [Entitic vol] 9.8 fL Normal 6.3-10.7 [facility] Comment on above: Performed By: #### A NTIR, RNA POLYMR, HEP C, ANTI TH TO, HBCAB, PM-SCL ABS, U3 WATER REGISTRAR, HBSAG, HBSAB, JOSE #### [facility] , #### CRP, CK, CMP #### [address] Platelets (Bld) [#/Vol] 206 10*3/uL Normal 150-450 [facility] Comment on above: Performed By: #### A NTIR, RNA POLYMR, HEP C, ANTI TH TO, HBCAB, PM-SCL ABS, U3 WATER REGISTRAR, HBSAG, HBSAB, JOSE #### [facility] , #### CRP, CK, CMP #### [address] RBC (Bld) [#/Vol] 4.33 10*6/uL Normal 3.60-5.[address] [facility] Comment on above: Performed By: #### A NTIR, RNA POLYMR, HEP C, ANTI TH TO, HBCAB, PM-SCL ABS, U3 WATER REGISTRAR, HBSAG, HBSAB, JOSE #### [facility] , #### CRP, CK, CMP #### [address] WBC (Bld) [#/Vol] 6.5 10*3/uL Normal 3.8-11.6 [facility] Comment on above: Performed By: #### A NTIR, RNA POLYMR, HEP C, ANTI TH TO, HBCAB, PM-SCL ABS, U3 WATER REGISTRAR, HBSAG, HBSAB, JOSE #### [facility] , #### CRP, CK, CMP #### [address] Comprehensive Metabolic Pane lilian 08-08-2020 Albumin [Mass/Vol] 4.1 g/dL Normal 3.2-5.5 [facility] Comment on above: Performed By: #### A NTIR, RNA POLYMR, HEP C, ANTI TH TO, HBCAB, PM-SCL ABS, U3 WATER REGISTRAR, HBSAG, HBSAB, JOSE #### [facility] , #### CRP, CK, CMP #### [address] Albumin/Globulin [Mass ratio] 1.9 {ratio} Normal [facility] Comment on above: Performed By: #### A NTIR, RNA POLYMR, HEP C, ANTI TH TO, HBCAB, PM-SCL ABS, U3 WATER REGISTRAR, HBSAG, HBSAB, JOSE #### [facility] , #### CRP, CK, CMP #### [facility] [address] [place] [address] ALP [Catalytic activity/Vol] 81 U/L Normal 32-92 [facility] Comment on above: Performed By: #### A NTIR, RNA POLYMR, HEP C, ANTI TH TO, HBCAB, PM-SCL ABS, U3 WATER REGISTRAR, HBSAG, HBSAB, JOSE #### [facility] , #### CRP, CK, CMP #### [address] ALT [Catalytic activity/Vol] 35 U/L Normal 10-60 [facility] Comment on above: Performed By: #### A NTIR, RNA POLYMR, HEP C, ANTI TH TO, HBCAB, PM-SCL ABS, U3 WATER REGISTRAR, HBSAG, HBSAB, JOSE #### [facility] , #### CRP, CK, CMP #### [address] AST [Catalytic activity/Vol] 25 U/L Normal 10-42 [facility] Comment on above: Performed By: #### A NTIR, RNA POLYMR, HEP C, ANTI TH TO, HBCAB, PM-SCL ABS, U3 WATER REGISTRAR, HBSAG, HBSAB, JOSE #### [facility] , #### CRP, CK, CMP #### [address] Bilirubin [Mass/Vol] 0.4 mg/dL Normal 0.3-1.2 [facility] Comment on above: Performed By: #### A NTIR, RNA POLYMR, HEP C, ANTI TH TO, HBCAB, PM-SCL ABS, U3 WATER REGISTRAR, HBSAG, HBSAB, JOSE #### [facility] , #### CRP, CK, CMP #### [address] Calcium [Mass/Vol] 9.2 mg/dL Normal 8.2-10.2 [facility] Comment on above: Performed By: #### A NTIR, RNA POLYMR, HEP C, ANTI TH TO, HBCAB, PM-SCL ABS, U3 WATER REGISTRAR, HBSAG, HBSAB, JOSE #### [facility] , #### CRP, CK, CMP #### [address] Chloride [Moles/Vol] 106 mmol/L Normal 95-114 [facility] Comment on above: Performed By: #### A NTIR, RNA POLYMR, HEP C, ANTI TH TO, HBCAB, PM-SCL ABS, U3 WATER REGISTRAR, HBSAG, HBSAB, JOSE #### [facility] , #### CRP, CK, CMP #### [address] CO2 [Moles/Vol] 28.1 mmol/L Normal 22.0-30.0 [facility] Comment on above: Performed By: #### A NTIR, RNA POLYMR, HEP C, ANTI TH TO, HBCAB, PM-SCL ABS, U3 WATER REGISTRAR, HBSAG, HBSAB, JOSE #### [facility] , #### CRP, CK, CMP #### [address] Creatinine [Mass/Vol] 0.64 mg/dL Normal 0.44-1.03 [facility] Comment on above: Performed By: #### A NTIR, RNA POLYMR, HEP C, ANTI TH TO, HBCAB, PM-SCL ABS, U3 WATER REGISTRAR, HBSAG, HBSAB, JOSE #### [facility] , #### CRP, CK, CMP #### [address] Estimated GFR ( Tari > 60 [facility] Comment on above: Result Comment: GFR estimated reference range: According to KDOQI guidelines, <60 ml/min/1.73m2 is sufficient to diagnose a patient with chronic kidney disease. Performed By: #### A NTIR, RNA POLYMR, HEP C, ANTI TH TO, HBCAB, PM-SCL ABS, U3 WATER REGISTRAR, HBSAG, HBSAB, JOSE #### [facility] , #### CRP, CK, CMP #### [address] Estimated GFR (Non- Am > 60 Normal [facility] Comment on above: Performed By: #### A NTIR, RNA POLYMR, HEP C, ANTI TH TO, HBCAB, PM-SCL ABS, U3 WATER REGISTRAR, HBSAG, HBSAB, JOSE #### [facility] , #### CRP, CK, CMP #### [address] Globulin (S) [Mass/Vol] 2.2 g/dL Normal [facility] Comment on above: Performed By: #### A NTIR, RNA POLYMR, HEP C, ANTI TH TO, HBCAB, PM-SCL ABS, U3 WATER REGISTRAR, HBSAG, HBSAB, JOSE #### [facility] , #### CRP, CK, CMP #### [address] Glucose [Mass/Vol] 87 mg/dL Normal 70-100 [facility] Comment on above: Result Comment: [facility] Glucose Reference Range is dependent on time and content of last meal. Glucose of more than 200 mg/dL in a nonstressed, ambulatory subject supports the diagnosis of Diabetes Mellitus. ADA recommended reference range Performed By: #### A NTIR, RNA POLYMR, HEP C, ANTI TH TO, HBCAB, PM-SCL ABS, U3 WATER REGISTRAR, HBSAG, HBSAB, JOSE #### [facility] , #### CRP, CK, CMP #### [address] Potassium [Moles/Vol] 4.5 mmol/L Normal 3.5-5.1 [facility] Comment on above: Performed By: #### A NTIR, RNA POLYMR, HEP C, ANTI TH TO, HBCAB, PM-SCL ABS, U3 WATER REGISTRAR, HBSAG, HBSAB, JOSE #### [facility] , #### CRP, CK, CMP #### [address] Protein [Mass/Vol] 6.3 g/dL Normal 6.1-7.9 [facility] Comment on above: Performed By: #### A NTIR, RNA POLYMR, HEP C, ANTI TH TO, HBCAB, PM-SCL ABS, U3 WATER REGISTRAR, HBSAG, HBSAB, JOSE #### [facility] , #### CRP, CK, CMP #### [address] Sodium [Moles/Vol] 143 mmol/L Normal 136-146 [facility] Comment on above: Performed By: #### A NTIR, RNA POLYMR, HEP C, ANTI TH TO, HBCAB, PM-SCL ABS, U3 WATER REGISTRAR, HBSAG, HBSAB, JOSE #### [facility] , #### CRP, CK, CMP #### [address] Urea nitrogen [Mass/Vol] 11 mg/dL Normal 9-23 [facility] Comment on above: Performed By: #### A NTIR, RNA POLYMR, HEP C, ANTI TH TO, HBCAB, PM-SCL ABS, U3 WATER REGISTRAR, HBSAG, HBSAB, JOSE #### [facility] , #### CRP, CK, CMP #### [address] Creatine Kinaseon 08-08-2020 CK [Catalytic activity/Vol] 39 U/L Normal 22-269 [facility] Comment on above: Result Comment: PERF ORMED BY: [place] [address] PATHOLOGIST LUMP MACHINE OPERATOR BEAU JOHNSON M.D. Performed By: #### A NTIR, RNA POLYMR, HEP C, ANTI TH TO, HBCAB, PM-SCL ABS, U3 WATER REGISTRAR, HBSAG, HBSAB, JOSE #### [facility] , #### CRP, CK, CMP #### [address] Erythrocyte Sedimentation Ra byron 08-08-2020 ESR (Bld) [Velocity] 4 mm/h Normal 0-29 [facility] Comment on above: Result Comment: PERF ORMED BY: [place] [address] PATHOLOGIST LUMP MACHINE OPERATOR BEAU JOHNSON M.D. Performed By: #### A NTIR, RNA POLYMR, HEP C, ANTI TH TO, HBCAB, PM-SCL ABS, U3 WATER REGISTRAR, HBSAG, HBSAB, JOSE #### [facility] , #### CRP, CK, CMP #### [address] Hep C Ab w Verificationon HCV AB <0.1 Normal 0.0-0.9 [facility] Comment on above: Order Comment: Speci men Comment: Test(s) 361615-Xlsw-J1 WATER REGISTRAR (Fibrillarin)(RDL) Specimen Comment: was developed and its performance characteristics Specimen Comment: determined by [facility]. It has not been cleared or approved Specimen Comment: by the Food and Drug Administration. Specimen Comment: Test(s) [id number]-Klks-ZO/Scl-75 Ab (RDL) Specimen Comment: was developed and its performance characteristics Specimen Comment: determined by [facility]. It has not been cleared or approved Specimen Comment: by the Food and Drug Administration. Performed By: #### A NTIR, RNA POLYMR, HEP C, ANTI TH TO, HBCAB, PM-SCL ABS, U3 WATER REGISTRAR, HBSAG, HBSAB, JOSE #### [facility] , #### CRP, CK, CMP #### [address] HCV Ab Comment Normal . [facility] Comment on above: Order Comment: Speci men Comment: Test(s) 360899-Guoz-C1 WATER REGISTRAR (Fibrillarin)(RDL) Specimen Comment: was developed and its performance characteristics Specimen Comment: determined by [facility]. It has not been cleared or approved Specimen Comment: by the Food and Drug Administration. Specimen Comment: Test(s) [id number]-Zrrv-RK/Scl-75 Ab (RDL) Specimen Comment: was developed and its performance characteristics Specimen Comment: determined by [facility]. It has not been cleared or approved Specimen Comment: by the Food and Drug Administration. Result Comment: Non reactive HCV antibody screen is consistent with no HCV infection, unless recent infection is suspected or other evidence exists to indicate HCV infection. Performed By: #### A NTIR, RNA POLYMR, HEP C, ANTI TH TO, HBCAB, PM-SCL ABS, U3 WATER REGISTRAR, HBSAG, HBSAB, JOSE #### [facility] , #### CRP, CK, CMP #### [facility] [address] [place] [address] Hepatitis B Core Antibodyon 08-08-2020 Hepatitis B Core Antibody Negative Normal Negative [facility] Comment on above: Order Comment: Speci men Comment: Test(s) [id number]-Athq-D7 WATER REGISTRAR (Fibrillarin)(RDL) Specimen Comment: was developed and its performance characteristics Specimen Comment: determined by [facility]. It has not been cleared or approved Specimen Comment: by the Food and Drug Administration. Specimen Comment: Test(s) [id number]-Pfke-UE/Scl-75 Ab (RDL) Specimen Comment: was developed and its performance characteristics Specimen Comment: determined by [facility]. It has not been cleared or approved Specimen Comment: by the Food and Drug Administration. Result Comment: Perf ormed at: - [facility] [id number] [employer] Inspector: David Pace PhD, Phone: [phone] Performed By: #### A NTIR, RNA POLYMR, HEP C, ANTI TH TO, HBCAB, PM-SCL ABS, U3 WATER REGISTRAR, HBSAG, HBSAB, JOSE #### [facility] , #### CRP, CK, CMP #### [address] Hepatitis B Surface Antibody on 08-08-2020 Hepatitis B Surface Antibody Non Reactive Normal . [facility] Comment on above: Order Comment: Speci men Comment: Test(s) 258194-Cmms-G7 WATER REGISTRAR (Fibrillarin)(RDL) Specimen Comment: was developed and its performance characteristics Specimen Comment: determined by [facility]. It has not been cleared or approved Specimen Comment: by the Food and Drug Administration. Specimen Comment: Test(s) [id number]-Jbst-SS/Scl-75 Ab (RDL) Specimen Comment: was developed and its performance characteristics Specimen Comment: determined by [facility]. It has not been cleared or approved Specimen Comment: by the Food and Drug Administration. Result Comment: Non Reactive: Inconsistent with immunity, less than 10 mIU/mL Reactive: Consistent with immunity, greater than 9.9 mIU/mL Performed By: #### A NTIR, RNA POLYMR, HEP C, ANTI TH TO, HBCAB, PM-SCL ABS, U3 WATER REGISTRAR, HBSAG, HBSAB, JOSE #### [facility] , #### CRP, CK, CMP #### [address] Hepatitis B Surface Antigeno n 08-08-2020 HBsAg Screen Negative Normal Negative [facility] Comment on above: Order Comment: Speci men Comment: Test(s) [id number]-Jqno-K6 WATER REGISTRAR (Fibrillarin)(RDL) Specimen Comment: was developed and its performance characteristics Specimen Comment: determined by [facility]. It has not been cleared or approved Specimen Comment: by the Food and Drug Administration. Specimen Comment: Test(s) 687714-Axhi-CM/Scl-75 Ab (RDL) Specimen Comment: was developed and its performance characteristics Specimen Comment: determined by [facility]. It has not been cleared or approved Specimen Comment: by the Food and Drug Administration. Performed By: #### A NTIR, RNA POLYMR, HEP C, ANTI TH TO, HBCAB, PM-SCL ABS, U3 WATER REGISTRAR, HBSAG, HBSAB, JOSE #### [facility] , #### CRP, CK, CMP #### [place] [address] [place] PM-SCL Antibodieson 08-08-19 21 JOHN PM-Scl Antibody <20 Normal <[address] [facility] Comment on above: Order Comment: Speci men Comment: Test(s) [id number]-Pjrb-T2 WATER REGISTRAR (Fibrillarin)(RDL) Specimen Comment: was developed and its performance characteristics Specimen Comment: determined by [facility]. It has not been cleared or approved Specimen Comment: by the Food and Drug Administration. Specimen Comment: Test(s) [id number]-Seqm-ZR/Scl-75 Ab (RDL) Specimen Comment: was developed and its performance characteristics Specimen Comment: determined by [facility]. It has not been cleared or approved Specimen Comment: by the Food and Drug Administration. Result Comment: Nega tive: <20 Weak Positive: 20 - 39 Moderate Positive: 40 - 80 Strong Positive: >80 Performed at: [facility] [address] [place] [address] [id number] [employer] Inspector: Shay Mcnair MD, Phone: [phone] Performed By: #### A NTIR, RNA POLYMR, HEP C, ANTI TH TO, HBCAB, PM-SCL ABS, U3 WATER REGISTRAR, HBSAG, HBSAB, JOSE #### [facility] , #### CRP, CK, CMP #### [facility] [address] [place] [address] [place] RNA Polymerase IIion RNA Polymerase IIi <20 Normal <20 [facility] Comment on above: Order Comment: Speci men Comment: Test(s) [id number]-Dpqo-Ba/To Ab (RDL) Specimen Comment: was developed and its performance characteristics Specimen Comment: determined by [facility]. It has not been cleared or approved Specimen Comment: by the Food and Drug Administration. Result Comment: Nega tive: <20 Weak Positive: 20 - 39 Moderate Positive: 40 - 80 Strong Positive: >80 Performed at: [facility] [address] [place] [address] [id number] [employer] Inspector: Shay Mcnair MD, Phone: [phone] PERFORMED BY: [place] [address] PATHOLOGIST LUMP MACHINE OPERATOR BEAU JOHNSON M.D. Performed By: #### A NTIR, RNA POLYMR, HEP C, ANTI TH TO, HBCAB, PM-SCL ABS, U3 WATER REGISTRAR, HBSAG, HBSAB, JOSE #### [facility] , #### CRP, CK, CMP #### [facility] [address] [place] [address] [place] Th/To Antibodyon 08-08-2020 Th/To Antibody Negative Normal Negative [facility] Comment on above: Order Comment: Speci men Comment: Test(s) [id number]-Svlc-Jk/To Ab (RDL) Specimen Comment: was developed and its performance characteristics Specimen Comment: determined by [facility]. It has not been cleared or approved Specimen Comment: by the Food and Drug Administration. Result Comment: Perf ormed at: [facility] [address] [place], [place] [id number] [employer] Inspector: Shay Mcnair MD, Phone: [phone] Performed By: #### A NTIR, RNA POLYMR, HEP C, ANTI TH TO, HBCAB, PM-SCL ABS, U3 WATER REGISTRAR, HBSAG, HBSAB, JOSE #### [facility] , #### CRP, CK, CMP #### [facility] [address] [place] [address] [place] U3 Rnpon 08-08-2020 U3 Funnel Setter Negative Normal Negative [facility] Comment on above: Order Comment: Speci men Comment: Test(s) [id number]-Bjaq-U3 WATER REGISTRAR (Fibrillarin)(RDL) Specimen Comment: was developed and its performance characteristics Specimen Comment: determined by [facility]. It has not been cleared or approved Specimen Comment: by the Food and Drug Administration. Specimen Comment: Test(s) [id number]-Ehuv-AK/Scl-75 Ab (RDL) Specimen Comment: was developed and its performance characteristics Specimen Comment: determined by [facility]. It has not been cleared or approved Specimen Comment: by the Food and Drug Administration. Result Comment: Perf ormed at: [facility] [address] [place] [address] [id number] [employer] Inspector: Shay Mcnair MD, Phone: [phone] PERFORMED BY: [place] [address] PATHOLOGIST LUMP MACHINE OPERATOR BEAU JOHNSON M.D. Performed By: #### A NTIR, RNA POLYMR, HEP C, ANTI TH TO, HBCAB, PM-SCL ABS, U3 WATER REGISTRAR, HBSAG, HBSAB, JOSE #### [facility] , #### CRP, CK, CMP #### [facility] [address] [place] [address] [place] T4on 08-02-2020 T4, Total 9.9 ug/dL 4.5 - 10.9 ug/dL [facility] [place] TSH without Reflexon 021 Interpretation and review of laboratory results Abnormal [place], [place] TSH Qn 5.63 m[IU]/L [place], [place] Vital Signs Date Time Vital Sign Value Performing Clinician Faci lity 01-10-2023 19:11-0400 SaO2% (BldA) [Mass fraction] 92 % Bulmaro Padron MD Work Phone: [facility] 01-10-2023 18:46-0400 Diastolic blood pressure 75 mm[Hg] Bulmaro Padron MD Work Phone: [facility] 01-10-2023 18:46-0400 Systolic blood pressure 166 mm[Hg] Bulmaro Padron MD Work Phone: [facility] 01-10-2023 17:33-0400 Body temperature 97.9 [degF] Bulmaro Padron MD Work Phone: [facility] 01-10-2023 17:33-0400 Heart rate 71 /min Bulmaro Padron MD Work Phone: [facility] 01-10-2023 17:33-0400 Respiratory rate 16 /min Bulmaro Padron MD Work Phone: [facility] Encounters Encounter Date Encounter Type Care Provider Facility Start: 05-28-2023 End: 05-29-2023 ambulatory Aayush MENDOZA Facility:[facility] Start: 05-27-2023 ambulatory Aayush CHOPRAL Facility:[facility] Start: 04-29-2023 ambulatory Aayush CHOPRAL Facility:[facility] Start: 04-02-2023 End: 04-03-2023 ambulatory ARMIDA AGEE [facility] Start: 02-01-2023 End: 02-01-2023 Subsequent hospital visit by physician Bulmaro Padron MD Work Phone: [facility] Laboratory Comment on above: Nocturia; Frequency of urination; Urge incontinence Start: 02-01-2023 End: 02-04-2023 ambulatory GABBIE WHITE [facility] Start: 01-10-2023 Emergency department patient visit BULMARO Gee [facility] Start: 01-10-2023 End: 01-10-2023 Emergency department patient visit Bulmaro Padron MD Work Phone: [facility] ED Comment on above: Right ureteral stone (Primary Dx) Start: 10-09-2022 Emergency department patient visit JORDYN EATON [facility] Start: 06-19-2022 End: 06-20-[address] BULMARO PADRON Facility:[facility] Start: 05-23-2022 End: 05-24-[address] BULMARO PADRON Facility:[facility] Start: 03-28-2022 End: 03-29-[address] BULMARO PADRON Facility:[facility] Start: 03-06-2022 End: 03-07-[address] BULMARO PADRON Facility:[facility] Start: 07-25-2021 End: 07-25-[address] BULMARO PADRON Facility:[facility] Start: 07-20-2021 End: 07-21-[address] BULMARO PADRON Facility:[facility] Start: 08-02-2020 End: 08-02-2020 Subsequent hospital visit by physician Bulmaro Padron [facility] Laboratory Procedures Date Procedure Procedure Detail Performing Clinician Start: 02-01-2023 Culture bacterial quanttative colony count urine Gabbie White [employer] Work Phone: Start: 01-10-2023 Ct abdomen & pelvis w/o contrast material Cari Bedkarine [employer] Work Phone: Start: 01-10-2023 Comprehensive metabo lic panel Cari Bedenkop [employer] Work Phone: Start: 01-10-2023 Urinalysis microscopic only Unknown Provider Result Start: 01-10-2023 Urnls dip stick/tabl et rgnt auto w/o microscopy Cari Bedkarine [employer] Work Phone: Start: 08-02-2020 Assay of thyroid stimulating hormone tsh Bulmaro Padron Work Phone: Start: 08-02-2020 Assay of thyroxine total Bulmaro Padron Work Phone: Plan of Treatment Date Care Activity Detail Author Start: 01-27-2028 DTaP/Tdap/Td vaccine (2 - Td or Tdap) DTaP/Tdap/Td vaccine (2 - Td or Tdap) [facility] Start: 01-27-2028 DTaP/Tdap/Td vaccine (2 - Td) DTaP/Tdap/Td vaccine (2 - Td) [place] Start: 02-12-2023 Influenza vaccination B [facility] Start: 03-15-2020 Influenza vaccination Flu vaccine (# 1) [place] Start: 01-04-2019 Annual Wellness Visi t (AWV) Annual Wellness Visit (AWV) [facility] Start: 2012 Screening for malign ant neoplasm of breast Breast cancer screen [facility] Start: 2012 Screening for malign ant neoplasm of colon Colon cancer screen colonoscopy [place], [place] Start: 2012 Shingles Vaccine (1 of 2) Shingles Vaccine (1 of 2) [facility] Start: 12-15-2007 Screening for malign ant neoplasm of colon [facility] Start: 2002 Lipid panel [facility] Start: 1997 Diabetes screen Diabetes screen [facility] Start: 1992 Screening for malign ant neoplasm of cervix [facility] Start: 12-15-1983 Screening for malign ant neoplasm of cervix [facility] Start: 1980 Hepatitis C screening Hepatitis C [facility] Start: 1977 HIV screening HIV screen [facility] Start: 1974 Depression Screen Depression Screen [facility] Start: 06-15-1963 COVID-19 Vaccine (#1) COVID-19 Vacci ne (#1) [facility] Start: 1962 Hepatitis C screening Hepatitis C sc [place], [place] End: 08-02-2020 Free T3 [Mass/Vol] T3, Free Lab Routine Once for 1 Occurrences starting 08/02/2020 until 08/02/2020 [place] Comment on above: Once for 1 Occurrenc es starting 08/02/2020 until 08/02/2020 Free T3 [Mass/Vol] T3, Free Lab Routine 08/02/2020 10:13 AM EST [place] Immunizations Immunization Date Immunization Notes Care Provider Gt doyle 01-26-2018 tetanus toxoid, redu clare diphtheria toxoid, and acellular pertussis vaccine, adsorbed Bulmaro Hoy [facility] Payers Date Payer Category Payer Medicare [id number] [id number] [id number] 2017 Unknown [id number] 1962 Unknown [id number] 2.16.84 [id number] 1962 Unknown [id number] 2.16.84 [id number] 1962 Unknown [id number] 2.16.84 [id number] 1962 Unknown [id number] 2.16.84 [id number] 1962 Unknown [id number] 2.16.84 [id number] 1962 Unknown [id number] 2.16.84 [id number] 1962 Unknown [id number] 2.16.8 [id number] 1962 Unknown [id number] 2.16.8 [id number] 1962 Unknown [id number] 2.16.8 [id number] 1962 Unknown [id number] 2.16.8 [id number] 1962 Unknown [id number] 2.16.8 [id number] Social History Date Type Detail Facility Start: 07-01-2018 End: 01-11-2023 Tobacco smoking status NHIS Former smoker [place], [place] Start: 07-01-2018 End: 01-11-2023 [facility] and exposure [facility] Start: 07-01-2018 End: 02-01-2023 Alcohol intake Current non-drinker of alcohol (finding) [place], [place] Start: 1960 Sex Assigned At Not on file [place] History of tobacco use Current smoker [facility] Start: 10-09-2022 History SDOH Alcohol Frequency 1 [facility] Start: 10-09-2022 History SDOH Alcohol Std Drinks 0 [facility] Clinical Note 05-28-2023 Note Date & Type Note Facility 05-28-2023 Note Chief Complaint consultation for abdominal wall mass HPI Staff 62 year old female presents on consultation from Dr. Padron for abdominal wall mass. Reports painful mass under abdominal scar. She noted this approximately one month ago. Believes mass has slightly increased in size. This is tender with pressure and certain movements. Denies nausea or vomiting. CT abdomen/pelvis completed 05/08 with soft tissue thickening. History of Present Illness 62 yo female with h/o COPD, hypothyroidism, hyperlipidemia, Rheumatoid arthritis, polyneuropathy, iron deficiency anemia, referred for abd scar pain; patient reports burning, pulling pain in upper scar, no skin changes or redness, no drainage, no bulge; no injury to area; abd ct scan recently completed, no hernia noted, images reviewed, scar in area of concern from previous herniorrhaphy, with ossification noted; no inflammation; patient reports herniorrhaphy and abdominoplasty in 1992; reportedly she had problems with infection of lower wound at that time; on baby asa daily; no NSAID use; no tobacco use. Review of Systems PHQ Score Initial Depression Screen Score: 0 SCORE ROS - Provider Constitutional: no fever, no sweats, no weight loss. Eyes: no glasses, no blurred vision, no visual loss. ENMT: no dentures, no hoarseness, no swallowing difficulties, no hearing loss, no ear infection(s), no nose bleeds. Cardiovascular: normal blood pressure, no chest pain, regular heartbeat, no heart murmur. Respiratory: no shortness of breath, no cough, no asthma, no wheezing. Gastrointestinal: no nausea, no vomiting, no diarrhea, no constipation, no blood in stool, no change in bowel habits, mild abdominal pain, no hepatitis. Genitourinary: no kidney stones, no urine infection, no dysuria. Musculoskeletal: no pain, no weakness. Skin: no changing moles, no rash, no skin lumps. Neurologic: no seizures, no epilepsy, no headache. Psychiatric: no emotional or psychiatric problem. Heme/Lymph: no bleeding problems, no anemia, no blood clots, no transfusions. Allergy/Immunologic: no swollen lymph nodes/glands, no IV drug abuse. Other: Additional ROS info: Except as noted in the above Review of Systems and in the History of Present Illness, all other systems have been reviewed and are negative or noncontributory. Physical Exam Vitals & Measurements HR: 71(Peripheral) RR: 16 BP: 144/70 HT: 59 in HT: 149 cm WT: 100.8 kg WT: 221.76 lb BMI: 45.4 HEENT: normal conjunctiva, sclera clear, no scleral icterus, EOM intact, PERRLA, oral mucosa moist without lesions. Neck: trachea midline, no mass, symmetric, no thyromegaly or nodules, no adenopathy Respiratory: lungs CTA, respirations non labored. Cardiovascular: regular rate and rhythm, no murmur, no pedal edema or varicosities. Gastrointestinal: obese, soft, non distended, no tenderness, thick, wide scar upper midline; with firm central area of ossification, no fascial defects, no masses or drainage, no open areas; no masses, no palpable hernias, diastasis recti yes, no hepatosplenomegaly; normal bs Lymphatic: no cervical adenopathy, no supraclavicular adenopathy. Musculoskeletal: abnormal gait, digits and nails without infection, nodes, cyanosis, clubbing. Skin: no rashes, no lesions, no ulcers, no subcutaneous nodules, induration. Psychiatric/Neuro: oriented to time, place, person, judgement normal, affect appropriate for age, insight intact, no focal deficits. Tests: , x-rays reviewed, review of old records completed , Assessment/Plan 1. Pain in surgical scar (R52: Pain, unspecified) dense wide scar with contraction and ossification; recommend abd binder for comfort; no evidence of skin changes or hernia; call with problems/questions. Scar conditions and fibrosis of skin (L90.5: Scar conditions and fibrosis of skin) Follow-up No qualifying data available Problem List/Past Medical History Ongoing Adrenal mass Asthma BMI 45.0-49.9, adult Chronic obstructive lung disease Chronic pain Hyperlipidemia Hypothyroidism Immunodeficiency disorder Iron deficiency anemia Morbid obesity Osteoporosis Pain in surgical scar Polyneuropathy Rheumatoid arthritis Tricuspid valve regurgitation Ureteric stone Vitamin D deficiency Historical No qualifying data Procedure/Surgical History Abdominoplasty, Bariatric surgery, Biopsy of breast, Repair of umbilical hernia. Medications Albuterol (Eqv-ProAir HFA), 1 puff(s), Inhalation, q4hr, PRN aspirin 81 mg Oral EC Tab, 81 mg= 1 tab(s), Oral, Daily Cytomel 5 mcg Tab, 15 mcg= 3 tab(s), Oral, Daily ferrous sulfate 325 mg Tab, 325 mg= 1 tab(s), Oral, Daily hydroxychloroquine 200 mg Tab, 200 mg= 1 tab(s), Oral, BID multivitamin, 1 tab(s), Oral, Daily Synthroid 125 mcg (0.125 mg) Tab, 125 mcg= 1 tab(s), Oral, Daily Allergies Bee Stings No Known Medication Allergies Social History Alcohol - Denies Alcohol Use, 05/28/2023 Substance Abuse - Denies Substance Abuse, 05/28/20 (more content not included)... [facility] Comment on above: Result Comment: Elec tronically Signed By: SOL DAVILA, Aayush Howell\Date and Time Signed: 05/28/23 13:23 EST Hospital Discharge instructions 01-10-2023 Discharge InstructionsAttachments Note Date & Type Note Facility 01-10-2023 Hospital Discharg e instructions RUBÉN Irby CNP - 01/10/2023 7:45 PM EDT Patient is as directed, increase clear fluid intake, follow-up with primary care or urology as needed return for worsening symptoms The following attachments cannot be sent through Care Everywhere.Kidney Stone (Spanish)documented in this encounter [facility] Evaluation note Note Date & Type Note Facility Evaluation note Diagnosis Right ureteral stone- Primary Calculus of ureter documented in this encounter [facility] Evaluation note Note Date & Type Note Facility Evaluation note Diagnosis Nocturia Frequency of urination Urinary frequency Urge incontinence documented in this encounter [facility] Advance Directives No Advanced Directives Records FoundDocuments on File Type Date Recorded Patient 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 DATE CREATED AUTHOR AUTHOR'S ORGANIZ ATION 06/23/2022 [facility] DATE CREATED AUTHOR AUTHOR'S ORGANIZ ATION 04/05/2023 [facility] DATE CREATED AUTHOR AUTHOR'S ORGANIZ ATION 05/29/2023 [facility] Reason for Visit (unrecogniz ed section and content) Reason Comments Abdominal Pain Flank Pain RLQ/flank pain, blad yesenia pressure Ordered Prescriptions (unrec ognized section and content) Prescription Sig Dispensed Refills Start Date End Da te promethazine (PHENERGAN) 25 MG tablet Take 1 tablet by mouth 3 times daily as needed for Nausea 12 tablet 0 01/10/2023 01/17/2023 cephALEXin (KEFLEX) 500 MG capsule Take 1 capsule by mouth 4 times daily for 7 days 28 capsule 0 01/10/2023 01/17/2023 tamsulosin (FLOMAX) 0.4 MG capsule Take 1 capsule by mouth daily for 5 days 5 capsule 0 01/10/2023 01/15/2023 ondansetron (ZOFRAN-ODT) [address] 1 tablet under the tongue every 8 hours as needed for Nausea or Vomiting May Sub regular tablet (non-ODT) if insurance does not cover ODT. 20 tablet 0 01/10/2023 01/17/2023 ibuprofen (ADVIL;MOTRIN) 600 MG tablet Take 1 tablet by mouth every 6 hours as needed for Pain 28 tablet 0 01/10/2023 01/17/2023 Scheduled Active and Recently Administ ered Medications (unrecognized section and content) Medication Order 01/08/2023 01/09/2023 01/10/2023 0.9 % sodium chloride bolus (COMPLETED) 1,000 mL, IntraVENous, at 495.9 mL/hr, Administer over 121 Minutes, ONCE, On Lashawn 01/10/23 at 1745, For 1 dose 1804 (New Bag - Prov ider: Whitney Ingram RN)2002 (Stopped - Provider: Celia Brady RN) cephALEXin (KEFLEX) capsule 500 mg (COMPLETED) 500 mg, Oral, ONCE, 1 dose, On Lashawn 01/10/23 at 1945, Antimicrobial Indications: Urinary Tract Infection 2002 (Given - Provid er: Celia Brady RN) diphenhydrAMINE (BENADRYL) injection 25 mg (COMPLETED) 25 mg, IntraVENous, ONCE, 1 dose, On Lashawn 01/10/23 at 1830, IV Push at rate not to exceed 25 mg/min. 1832 (Given - Provid er: Whitney Ingram RN) hydrocodone-acetaminophen (NORCO) tablet 5-325 mg (STARTER PACK) This order is for a take home starter pack of medication. Please document Furn[facility] to patient on [facility] Celia [facility]) HYDROmorphone (DILAUDID) injection 0.5 mg (COMPLETED) 0.5 mg, IntraVENous, NOW, 1 dose, On Lashawn 01/10/23 at 1830, If oral and IV narcotics ordered, use oral first and only use IV if oral is ineffective or cannot take oral. Do Not give oral and IV within 1 hour of each other unless specifically ordered. 1832 (Given - Provid er: Whitney Ingram RN) ketorolac (TORADOL) injection 30 mg (COMPLETED) 30 mg, IntraVENous, ONCE, 1 dose, On Lashawn 01/10/23 at 1945, Do not administer for more than 5 days. 2003 (Given - Provid er: Celia Brady RN) morphine injection 4 mg (COMPLETED) 4 mg, IntraVENous, NOW, 1 dose, On Lashawn 01/10/23 at 1745, If oral and IV narcotics ordered, use oral first and only use IV if oral is ineffective or cannot take oral. Do Not give oral and IV within 1 hour of each other unless specifically ordered. 1804 (Given - Provid er: Whitney Ingram RN) ondansetron (ZOFRAN) injection 4 mg (COMPLETED) 4 mg, IntraVENous, ONCE, 1 dose, On Lashawn 01/10/23 at 1745 1804 (Given - Provid er: Whitney Ingram RN) tamsulosin (FLOMAX) capsule 0.4 mg 0.4 mg, Oral, DAILY, First dose on Lashawn 01/10/23 at 1945, Until Discontinued, Do not crush or break. Give 30 minutes after a full meal to limit risk of orthostatic hypotension/falls. 2003 (Given - Provid er: Celia Brady RN) Care Teams (unrecognized sec tion and content) Retail Branch Manager Relationship Specialty Start Date End Date Bulmaro Padron MD [address] [phone] PCP - General Family Medicine 01/26/18 Retail Branch Manager Relationship Specialty Start Date End Date Bulmaro Padron MD [address] [phone] PCP - General Family Medicine 01/26/18 FOR RECORDS PERTAINING TO PATIENTS WHO ARE OR HAVE BEEN ENROLLED IN A CHEMICAL DEPENDENCY/SUBSTANCEABUSE PROGRAM, SOME INFORMATION MAY BE OMITTED. This clinical summary was aggregated from multiple sources. Caution should be exercised in using it in the provision of clinical care. This summary normalizes information from multiple sources, and as a consequence, information in this document may materially change the coding, format and clinical context of patient data. In addition, data may be omitted in some cases. CLINICAL DECISIONS SHOULD BE BASED ON THE PRIMARY CLINICAL RECORDS. [facility] [employer] [facility]. provides no warranty or guarantee of the accuracy or completeness of information in this document.
== END 2024-02-11 15:33 | disposition home or self-care (01) ==
LOC: MRI 15:32
PROVIDERS: PCP Family Medicine; Visit Provider Family Medicine
DX: G89.29 Other chronic pain (principal); M54.50 Low back pain, unspecified; M48.062 Spinal stenosis, lumbar region with neurogenic claudication; M51.36 Other intervertebral disc degeneration, lumbar region
CPT/HCPCS: 72148

== ENCOUNTER 2024-03-02 12:32 | Outpatient (OUT) | payer MEDICARE, SELFPAY ==
--- OUTSIDE RECORDS SUMMARY | 2024-03-02 12:50 | XMS_ITS | CCD ---
Author Organization [facility] Care Team Providers Care M48 M60 Armor Crewman Name Role Phone Bulmaro Padron Primary Care Provider [phone] CLARA, DR CHAMBERLAIN Admitting Unavailable HOY, DR [...] Unavailable BULMARO PADRON Primary Care Unavailable JORDYN EATON Attending Unavailable BULMARO PADRON Primary Care Unavailable BULMARO PADRON Primary Care Unavailable ARMIDA AGEE Referring Unavailable BULMARO PADRON Primary Care Unavailable Aayush MENDOZA Attending Unavailable Bulmaro Padron Referring Unavailable Allergies Allergy Classification Reported Allergen(s) Allergy Type Date of Onset Reaction(s) Facility (1 source) Bee/Wasp/Ant venom; Translations: [Bee Stings] Propensity to adverse reactions (disorder) [facility] Repository (1 source) No Known Medication Allergies; Translations: [No Known Medication Allergies] Propensity to adverse reactions (disorder) [facility] Repository Medications Current Medications Medication Drug [...] you for choosing us for your care. [facility] RAD - CT Reporton 05-23-2023 RAD - CT Report [id number] 10 [id number] 0TIFF Normal [facility] Patient Letter FTMCon 2022 Patient Letter [facility] [place], 2023 JOSÉ LUIS KURTZ [address] [place] [address] : 1960 Dear Ms. Kurtz, Thank you for choosing [facility] for your healthcare needs. Your consultation appointment with Dr Aayush Mendoza is scheduled for 05/28/23 at 10am. We are located in the [facility] 3 building, 2nd floor, [address]. A map is enclosed. Please bring your insurance card, a photo ID, and any co-pay you are responsible for to this first appointment. If you have any questions, please call us at [phone]. We look forward to seeing you soon. Sincerely, [place] [address], [address] [place] [address]. [place] [address] Normal [facility] Consultation Noteon 05-01-20 23 Consultation Note [id number] Normal [facility] Physician Referralon 023 Physician Referral [id number] 00 [id number] 0TIFF Normal [facility] Cult,Urineon 04-03-2023 Cult,Urine Specimen Description .CLEAN CATCH URINE Culture NO SIGNIFICANT GROWTH Report Status FINAL 04/03/2023 [facility] Comment on above: Performed By: #### B C #### [facility] [address] [place] [address] [place] [address] Glaze Supervisor: Stu Baires MD Trichomonas/Wet Prepon 04-02 Trichomonas/Wet Prep Specimen Description .VAGINA Direct Exam NO YEAST OBSERVED NO TRICHOMONAS SEEN NO CLUE CELLS SEEN Report Status FINAL 04/02/2023 [facility] Comment on above: Performed By: #### W P #### [facility] [address] [place] [address] Glaze Supervisor: Stu Baires MD Cult,Urineon 02-03-2023 Cult,Urine Specimen Description .CLEAN CATCH URINE Culture NO SIGNIFICANT GROWTH Report Status FINAL 02/02/2023 Normal [facility] Comment on above: Performed By: #### U RC #### [place] [id number] [place] [address] Glaze Supervisor: Victor Manuel Be MD [facility] [address] [place] [address] Glaze Supervisor: Stu Baires MD Culture, Urineon 02-02-2023 Microorganism identified Cx Nom (Unsp spec) NO SIGNIFICANT GROWTH [facility] Specimen Description .CLEAN CATCH URINE [facility] CT ABDOMEN PELVIS WO CONTRAS Ton 02-01-2023 [...] Ar Graves MD 02/01/23 Final result Normal [facility] CBC with Auto Differentialon 01-10-2023 Basophils (Bld) [#/Vol] 0.03 10*3/uL [facility] Basophils/100 WBC (Bld) 0 % 0 - 2 % [facility] Eosinophils (Bld) [#/Vol] 0.03 10*3/uL [facility] Eosinophils/100 WBC (Bld) 0 % Low 1 - 4 % [facility] Erythrocyte distribution width (RBC) [Ratio] 12.6 % 11.8 - 14.4 % [facility] Hematocrit (Bld) [Volume fraction] 43.5 % 36.3 - 47.1 % [facility] Hemoglobin (Bld) [Mass/Vol] 14.4 g/dL 11.9 - 15.1 g/dL [facility] Immature granulocytes (Bld) [#/Vol] [facility] Immature granulocytes/100 WBC (Bld) 0 % 0 [facility] Interpretation and review of laboratory results Abnormal [facility] Lymphocytes/100 WBC (Bld) 11 % Low 24 - 43 % [facility] Lymphocytes/100 WBC (Bld) 0.90 % Low [facility] MCH (RBC) [Entitic mass] 31.5 pg 25.2 - 33.5 pg [facility] MCHC (RBC) [Mass/Vol] 33.1 g/dL 28.4 - 34.8 g/dL [facility] MCV (RBC) [Entitic vol] 95.2 fL 82.6 - 102.9 fL [facility] Monocytes/100 WBC (Bld) 5 % 3 - 12 % [facility] Monocytes/100 WBC (Bld) 0.44 % [facility] Neutrophils/100 WBC (Bld) 84 % High 36 - 65 % [facility] Nucleated RBC/100 WBC (Bld) [Ratio] 0.0 % 0.0 per 100 WBC [facility] Platelet mean volume (Bld) [Entitic vol] 10.8 fL 8.1 - 13.5 fL [facility] Platelets (Bld) [#/Vol] 210 10*3/uL [facility] RBC (Bld) [#/Vol] 4.57 10*6/uL 3.95 - 5.1 1 m/uL [facility] Segmented neutrophils/100 WBC (Bld) 7.13 % [facility] WBC other (Bld) [#/Vol] 8.6 [facility] CBC with Diffon 01-10-2023 Abs. Basophil 0.03 k/uL Normal 0.00-0.20 [facility] Comment on above: Performed By: #### C DP, CP #### [address] [place], [place] [address] Glaze Supervisor: Stu Baires MD Abs.Imm.Granulocyte <0.03 Normal 0.00-0.30 [facility] Comment on above: Performed By: #### C DP, CP #### [address] [place] [address] Glaze Supervisor: Stu Baires MD Abs.Neutrophil (Seg) 7.13 k/uL Normal 1.50-8.10 [facility] Comment on above: Performed By: #### C DP, CP #### [address] [place] [id number] Glaze Supervisor: Stu Baires MD Basophils/100 WBC (Bld) 0 % Normal 0-2 [facility] Comment on above: Performed By: #### C DP, CP #### [address] [place], [facility]83 Glaze Supervisor: Stu Baires MD Eosinophils (Bld) [#/Vol] 0.03 10*3/uL Normal 0.00-0.44 [facility] Comment on above: Performed By: #### C DP, CP #### [address] [place] [id number] Glaze Supervisor: Stu Baires MD Eosinophils/100 WBC (Bld) 0 % Low 1-4 [facility] Comment on above: Performed By: #### C DP, CP #### [address] [place], [place] [address] Glaze Supervisor: Stu Baires MD Erythrocyte distribution width (RBC) [Ratio] 12.6 % Normal 11.8-14.4 [facility] Comment on above: Performed By: #### C DP, CP #### [facility] [address] [place] [address] Glaze Supervisor: Stu Baires MD Hematocrit (Bld) [Volume fraction] 43.5 % Normal 36.3-47.1 [facility] Comment on above: Performed By: #### C DP, CP #### [address] [place] [address] Glaze Supervisor: Stu Baires MD Hemoglobin (Bld) [Mass/Vol] 14.4 g/dL Normal 11.9-15.1 [facility] Comment on above: Performed By: #### C DP, CP #### [address] [place] [address] Glaze Supervisor: Stu Baires MD Immature granulocytes/100 WBC (Bld) 0 % Normal 0 [facility] Comment on above: Performed By: #### C DP, CP #### [address] [place], [facility]83 Glaze Supervisor: Stu Baires MD Lymphocytes (Bld) [#/Vol] 0.90 10*3/uL Low 1.10-3.70 [facility] Comment on above: Performed By: #### C DP, CP #### [facility] [address] [place] [address] Dr. [place], [facility]83 Glaze Supervisor: Stu Baires MD Lymphocytes/100 WBC (Bld) 11 % Low 24-43 [facility] Comment on above: Performed By: #### C DP, CP #### [facility] [address] [place], [facility]83 Glaze Supervisor: Stu Baires MD MCH (RBC) [Entitic mass] 31.5 pg Normal 25.2-33.5 [facility] Comment on above: Performed By: #### C DP, CP #### [address] [place] [address] Glaze Supervisor: Stu Baires MD MCHC (RBC) [Mass/Vol] 33.1 g/dL Normal 28.4-34.8 [facility] Comment on above: Performed By: #### C DP, CP #### [address] [place], [place] [id number] Glaze Supervisor: Stu Baires MD MCV (RBC) [Entitic vol] 95.2 fL Normal 82.6-102.9 [facility] Comment on above: Performed By: #### C DP, CP #### [address] [place], [place] 1107583 Glaze Supervisor: Stu Baires MD Monocytes (Bld) [#/Vol] 0.44 10*3/uL Normal 0.10-1.20 [facility] Comment on above: Performed By: #### C DP, CP #### [address] [place], [place] [id number] Glaze Supervisor: Stu Baires MD Monocytes/100 WBC (Bld) 5 % Normal 3-12 [facility] Comment on above: Performed By: #### C DP, CP #### [address] [place], [place] [phone] Glaze Supervisor: Stu Baires MD Neutrophil (Seg) 84 % High 36-65 [facility] Comment on above: Performed By: #### C DP, CP #### [address] [place], [place] [id number] Glaze Supervisor: Stu Baires MD NRBC Automated 0.0 per 100 WBC Normal 0.0 [facility] Comment on above: Performed By: #### C DP, CP #### [facility] [address] [place], [place] [id number] Glaze Supervisor: Stu Baires MD Platelet mean volume (Bld) [Entitic vol] 10.8 fL Normal 8.1-13.5 [facility] Comment on above: Performed By: #### C DP, CP #### [facility] [address] [place] [address] Glaze Supervisor: Stu Baires MD Platelets (Bld) [#/Vol] 210 10*3/uL Normal 138-453 [facility] Comment on above: Performed By: #### C DP, CP #### [facility] [address] [place] [address] Glaze Supervisor: Stu Baires MD RBC (Bld) [#/Vol] 4.57 10*6/uL Normal 3.95-5.11 [facility] Comment on above: Performed By: #### C DP, CP #### [facility] [address] [place], [facility]83 Glaze Supervisor: Stu Baires MD WBC (Bld) [#/Vol] 8.6 10*3/uL Normal 3.5-11.3 [facility] Comment on above: Performed By: #### C DP, CP #### [facility] [address] [place], [facility]83 Glaze Supervisor: Stu Baires MD [facility] 01-10-2023 Albumin [Mass/Vol] 4.3 g/dL 3.5 - 5.2 g/dL [facility] Albumin/Globulin [Mass ratio] 1.4 {ratio} 1.0 - 2.5 [facility] ALP [Catalytic activity/Vol] 97 U/L 35 - 104 U/L [facility] ALT [Catalytic activity/Vol] 29 U/L 5 - 33 U/L [facility] Anion gap [Moles/Vol] 8 mmol/L Low 9 - 17 mmol/L [facility] AST [Catalytic activity/Vol] 25 U/L NINF - 32 U/L [facility] Bilirubin [Mass/Vol] 0.3 mg/dL 0.3 - 1.2 mg/dL [facility] Calcium [Mass/Vol] 9.3 mg/dL 8.6 - 10. 4 mg/dL [facility] Chloride [Moles/Vol] 105 mmol/L 98 - 107 mmol/L [facility] CO2 [Moles/Vol] 25 mmol/L 20 - 31 mmol/L [facility] Creatinine [Mass/Vol] 0.51 mg/dL 0.50 - 0.90 mg/dL [facility] GFR/1.73 sq M.predicted MDRD (S/P/Bld) [Vol rate/Area] - PINF [facility] Comment on above: These results are [...] 140 mg/dL High 70 - 99 mg/dL [facility] Interpretation and review of laboratory results Abnormal [facility] Potassium [Moles/Vol] 4.3 mmol/L 3.7 - 5.3 mmol/L [facility] Protein [Mass/Vol] 7.4 g/dL 6.4 - 8.3 g/dL [facility] Sodium [Moles/Vol] 138 mmol/L 135 - 144 mmol/L [facility] Urea nitrogen [Mass/Vol] 13 mg/dL 8 - 23 mg/dL [facility] Urea nitrogen/Creatinine [Mass ratio] 25 mg/mg High 9 - [address] [facility] [address] ABDOMEN PELVIS WO CONTRAS Ton 01-10-2023 [...] Enrico Armstrong MD 01/10/23 Final result Normal [facility] CT ABDOMEN PELVIS WO CONTRAS T Additional Contrast? Noneon 01-10-2023 1. 2 mm stone at the right ureterovesical junction with mild hydroureteronephrosis. 2. 1.6 cm left adrenal nodule unchanged from 2018 compatible with a benign adenoma. No follow-up recommended. [facility] RIS CONSOLIDATED EXAMINATION: CT OF THE ABDOMEN [...] No acute osseous or soft tissue abnormality. [facility] Enrico Harvey MD - 01/10/2023 EXAMINATION: CT [...] with a benign adenoma. No follow-up recommended. [facility] Radiology Study observation (narrative) [facility] CT ABDOMEN PELVIS WO CONTRAS T Additional Contrast? NoneOrdered By: Enrico Armstrong on 01-10-2023 [facility] Work Phone: Comp Metabolic Profon 2022 Albumin [Mass/Vol] 4.3 g/dL Normal 3.5-5.2 [facility] Comment on above: Performed By: #### B C #### [facility] [address] [place] [address] Glaze Supervisor: Stu Baires MD Albumin/Glob Ratio 1.4 Normal 1.0-2.5 [facility] Comment on above: Performed By: #### B C #### [facility] [address] [place], [place] [id number] Glaze Supervisor: Stu Baires MD Alkaline Phos 97 U/L Normal 35-104 [facility] Comment on above: Performed By: #### B C #### [facility] [address] [place], [place] [id number] Glaze Supervisor: Stu Baires MD ALT [Catalytic activity/Vol] 29 U/L Normal 5-33 [facility] Comment on above: Performed By: #### B C #### [facility] [address] [place], [place] 7158583 Glaze Supervisor: Stu aBires MD Anion gap [Moles/Vol] 8 mmol/L Low 9-17 [facility] Comment on above: Performed By: #### B C #### [facility] [address] [place], [place] 7546083 Glaze Supervisor: Stu Baires MD AST [Catalytic activity/Vol] 25 U/L Normal <32 [facility] Comment on above: Performed By: #### B C #### [facility] [address] [place], [place] [phone] Glaze Supervisor: Stu Baires MD Bilirubin [Mass/Vol] 0.3 mg/dL Normal 0.3-1.2 [facility] Comment on above: Performed By: #### B C #### [facility] [address] [place], [place] 5183583 Glaze Supervisor: Stu Baires MD BUN/CRE Ratio 25 High 9-20 [facility] Comment on above: Performed By: #### B C #### [facility] [address] [place], [place] 1602083 Glaze Supervisor: Stu Baires MD Calcium [Mass/Vol] 9.3 mg/dL Normal 8.6-10.4 [facility] Comment on above: Performed By: #### B C #### [facility] [address] [place], [place] 7806983 Glaze Supervisor: Stu Baires MD Chloride [Moles/Vol] 105 mmol/L Normal 98-107 [facility] Comment on above: Performed By: #### B C #### [facility] [address] [place] [address] Glaze Supervisor: Stu Baires MD CO2 [Moles/Vol] 25 mmol/L Normal 20-31 [facility] Comment on above: Performed By: #### B C #### [facility] [address] [place] [address] Glaze Supervisor: Stu Baires MD Creatinine [Mass/Vol] 0.51 mg/dL Normal 0.50-0.90 [facility] Comment on above: Performed By: #### B C #### [facility] [address] [place] [address] Glaze Supervisor: Stu Baires MD GFR/1.73 sq M.predicted among non-blacks MDRD (S/P/Bld) [Vol rate/Area] mL/min/{1.73_m2} Normal >60 [facility] Comment on above: Result Comment: These results [...] secretion. Performed By: #### B C #### [facility] [address] [place] [address] Glaze Supervisor: Stu Baires MD Glucose [Mass/Vol] 140 mg/dL High 70-99 [facility] Comment on above: Performed By: #### B C #### [facility] [address] [place] [address] Glaze Supervisor: Stu Baires MD Potassium [Moles/Vol] 4.3 mmol/L Normal 3.7-5.3 [facility] Comment on above: Performed By: #### B C #### [facility] [address] [place], [place] 8881383 Glaze Supervisor: Stu Baires MD Protein [Mass/Vol] 7.4 g/dL Normal 6.4-8.3 [facility] Comment on above: Performed By: #### B C #### [address] [place], [place] [id number] Glaze Supervisor: Stu Baires MD Sodium [Moles/Vol] 138 mmol/L Normal 135-144 [facility] Comment on above: Performed By: #### B C #### [facility] [address] [place] [address] [place] [address] Glaze Supervisor: Stu Baires MD Urea nitrogen [Mass/Vol] 13 mg/dL Normal 8-23 [facility] Comment on above: Performed By: #### B C #### [address] [place], [place] [phone] Glaze Supervisor: Stu Baires MD Microscopic Urinalysison Bacteria LM Ql (Urine sed) TRACE Abnormal None [facility] Epithelial cells LM.HPF (Urine sed) [#/Area] 0 TO 2 [facility] Interpretation and review of laboratory results Abnormal [facility] RBC LM.HPF (Urine sed) [#/Area] 0 TO 2 [facility] WBC LM.HPF (Urine sed) [#/Area] 10 TO 20 [facility] 01-10-2023 Bilirubin Ql (U) Negative NEGATIVE [facility] Clarity (U) Clear Clear [facility] Color (U) Yellow Yellow [facility] Glucose Test strip (U) [Mass/Vol] Negative NEGATIVE [facility] Hemoglobin Auto test strip Ql (U) Negative NEGATIVE [facility] Interpretation and review of laboratory results Abnormal [facility] Ketones (U) [Mass/Vol] Negative NEGATIVE [facility] Leukocyte esterase Test strip Ql (U) SMALL Abnormal NEGATIVE [facility] Nitrite Ql (U) Negative NEGATIVE [facility] pH (U) 5.5 [pH] 5.0 - 9.0 [facility] Protein (U) [Mass/Vol] Negative NEGATIVE [facility] Specific gravity (U) [Rel density] High 1.010 - 1.020 [facility] Urobilinogen Qn (U) Normal Normal [facility] Urinalysis, Routineon 2022 Bilirubin, SemiQt,Ur Negative Normal NEG [facility] Comment on above: Performed By: #### B C #### [facility] [address] [place] [address] Dr[address] [place] [id number] Glaze Supervisor: Stu Baires MD Blood, Urine Negative Normal NEG [facility] Comment on above: Performed By: #### B C #### [address] [place] [address] Glaze Supervisor: Stu Baires MD Clarity (U) Clear Normal CLEAR [facility] Comment on above: Performed By: #### B C #### [facility] [address] [place] [address] [place] [address] Glaze Supervisor: Stu Baires MD Color (U) Yellow Normal YEL [facility] Comment on above: Performed By: #### B C #### [address] [place] [address] Glaze Supervisor: Stu Baires MD Glucose Ql (U) Negative Normal NEG [facility] Comment on above: Performed By: #### B C #### [address] [place], [place] [phone] Glaze Supervisor: Stu Baires MD Ketones Ql (U) Negative Normal NEG [facility] Comment on above: Performed By: #### B C #### [facility] [address] [place], [place] [phone] Glaze Supervisor: Stu Baires MD Leukocyte esterase Test strip Ql (U) SMALL Abnormal NEG [facility] Comment on above: Performed By: #### B C #### [facility] [address] [place] [address] Glaze Supervisor: Stu Baires MD Nitrite,Ur Negative Normal NEG [facility] Comment on above: Performed By: #### B C #### [facility] [address] [place] [address] [place] [address] Glaze Supervisor: Stu Baires MD PH,Ur 5.5 Normal 5.0-9.0 [facility] Comment on above: Performed By: #### B C #### [facility] [address] [place] [address] Dr[address] [place], [place] [phone] Glaze Supervisor: Stu Baires MD Protein Ql (U) Negative Normal NEG [facility] Comment on above: Performed By: #### B C #### [facility] [address] [place] [address] [place] [place], [place] [phone] Glaze Supervisor: Stu Baires MD Spec. [place],Ur >1.030 High 1.010-1.020 [facility] Comment on above: Performed By: #### B C #### [facility] [address] [place], [place] [phone] Glaze Supervisor: Stu Baires MD Urobilinogen,Ur Normal Normal NORM [facility] Comment on above: Performed By: #### B C #### [facility] [address] [place], [place] [phone] Glaze Supervisor: Stu Baires MD Urinalysis,Microon 3 Bacteria TRACE Abnormal NONE [facility] Comment on above: Performed By: #### B C #### [facility] [address] [place] [address] Glaze Supervisor: Stu Baires MD Epithelial cells LM Ql (Urine sed) 0 TO 2 Normal 0-25 [facility] Comment on above: Performed By: #### B C #### [facility] [address] [place], [place] [phone] Glaze Supervisor: Stu Baires MD Urine RBC's 0 TO 2 Normal 0-2 [facility] Comment on above: Performed By: #### B C #### [address] [place], [place] 7491583 Glaze Supervisor: Stu Baires MD Urine WBC's 10 TO 20 Normal 0-5 [facility] Comment on above: Performed By: #### B C #### [facility] [address] [place] [address] Dr[place], [place] [phone] Glaze Supervisor: Stu Baires MD Cult, Bloodon 10-14-2022 Cult, Blood Specimen Description .BLOOD Special Requests 10ML LHAND Culture NO GROWTH 5 DAYS Report Status FINAL 10/14/2022 Normal [facility] Comment on above: Performed By: #### B C #### [facility] [address] [place] [address] Dr[address] [place], [place] [phone] Glaze Supervisor: Stu Baires MD Cult,Bloodon 10-14-2022 Cult,Blood Specimen Description .BLOOD Special Requests 14ml rfa Culture NO GROWTH 5 DAYS Report Status FINAL 10/14/2022 Normal [facility] Comment on above: Performed By: #### B C #### [facility] [address] [place] [address] [place] [address] Glaze Supervisor: Stu Baires MD CBC with Diffon 10-09-2022 Abs. Basophil 0.03 k/uL Normal 0.00-0.20 [facility] Comment on above: Performed By: #### C P, CDP #### [address] [place], [place] [address] Glaze Supervisor: Stu Baires MD Abs.Imm.Granulocyte <0.03 Normal 0.00-0.30 [facility] Comment on above: Performed By: #### C P, CDP #### [address] [place], [place] [address] Glaze Supervisor: Stu Baires MD Abs.Neutrophil (Seg) 2.53 k/uL Normal 1.50-8.10 [facility] Comment on above: Performed By: #### C P, CDP #### [address] [place] [address] Glaze Supervisor: Stu Baires MD Basophils/100 WBC (Bld) 1 % Normal 0-2 [facility] Comment on above: Performed By: #### C P, CDP #### [address] [place] [address] Glaze Supervisor: Stu Baires MD Eosinophils (Bld) [#/Vol] 0.06 10*3/uL Normal 0.00-0.44 [facility] Comment on above: Performed By: #### C P, CDP #### [address] [place] [address] Glaze Supervisor: Stu Baires MD Eosinophils/100 WBC (Bld) 2 % Normal 1-4 [facility] Comment on above: Performed By: #### C P, CDP #### [address] [place] [address] Glaze Supervisor: Stu Baires MD Erythrocyte distribution width (RBC) [Ratio] 13.0 % Normal 11.8-14.4 [facility] Comment on above: Performed By: #### C P, CDP #### [address] [place], [facility]83 Glaze Supervisor: Stu Baires MD Hematocrit (Bld) [Volume fraction] 38.9 % Normal 36.3-47.1 [facility] Comment on above: Performed By: #### C P, CDP #### [address] [place], [facility]83 Glaze Supervisor: Stu Baires MD Hemoglobin (Bld) [Mass/Vol] 13.2 g/dL Normal 11.9-15.1 [facility] Comment on above: Performed By: #### C P, CDP #### [address] [place] [address] Glaze Supervisor: Stu Baires MD Immature granulocytes/100 WBC (Bld) 1 % High 0 [facility] Comment on above: Performed By: #### C P, CDP #### [address] [place], [facility]83 Glaze Supervisor: Stu Baires MD Lymphocytes (Bld) [#/Vol] 0.71 10*3/uL Low 1.10-3.70 [facility] Comment on above: Performed By: #### C P, CDP #### [address] [place], [facility]83 Glaze Supervisor: Stu Baires MD Lymphocytes/100 WBC (Bld) 18 % Low 24-43 [facility] Comment on above: Performed By: #### C P, CDP #### [facility] [address] [place] [address] Dr. Mccain, [facility]83 Glaze Supervisor: Stu Baires MD MCH (RBC) [Entitic mass] 32.0 pg Normal 25.2-33.5 [facility] Comment on above: Performed By: #### C P, CDP #### [address] [place], [facility]83 Glaze Supervisor: Stu Baires MD MCHC (RBC) [Mass/Vol] 33.9 g/dL Normal 28.4-34.8 [facility] Comment on above: Performed By: #### C P, CDP #### [facility] [address] [place], [place] [id number] Glaze Supervisor: Stu Baires MD MCV (RBC) [Entitic vol] 94.2 fL Normal 82.6-102.9 [facility] Comment on above: Performed By: #### C P, CDP #### [address] [place], [facility]83 Glaze Supervisor: Stu Baires MD Monocytes (Bld) [#/Vol] 0.56 10*3/uL Normal 0.10-1.20 [facility] Comment on above: Performed By: #### C P, CDP #### [address] [place], [place] [address] Glaze Supervisor: Stu Baires MD Monocytes/100 WBC (Bld) 14 % High 3-12 [facility] Comment on above: Performed By: #### C P, CDP #### [address] [place], [facility]83 Glaze Supervisor: Stu Baires MD Neutrophil (Seg) 64 % Normal 36-65 [facility] Comment on above: Performed By: #### C P, CDP #### [address] [place], [facility]83 Glaze Supervisor: Stu Baires MD NRBC Automated 0.0 per 100 WBC Normal 0.0 [facility] Comment on above: Performed By: #### C P, CDP #### [address] [place], [facility]83 Glaze Supervisor: Stu Baires MD Platelet mean volume (Bld) [Entitic vol] 11.1 fL Normal 8.1-13.5 [facility] Comment on above: Performed By: #### C P, CDP #### [facility] [address] [place] [address] Glaze Supervisor: Stu Baires MD Platelets (Bld) [#/Vol] 221 10*3/uL Normal 138-453 [facility] Comment on above: Performed By: #### C P, CDP #### [facility] [address] [place] [address] Glaze Supervisor: Stu Baires MD RBC (Bld) [#/Vol] 4.13 10*6/uL Normal 3.95-5.11 [facility] Comment on above: Performed By: #### C P, CDP #### [facility] [address] [place], [place] [phone] Glaze Supervisor: Stu Baires MD WBC (Bld) [#/Vol] 3.9 10*3/uL Normal 3.5-11.3 [facility] Comment on above: Performed By: #### C P, CDP #### [facility] [address] [place], [place] [phone] Glaze Supervisor: Stu Baires MD Comp Metabolic Profon 2022 Albumin [Mass/Vol] 3.4 g/dL Low 3.5-5.2 [facility] Comment on above: Performed By: #### C P, CDP #### [facility] [address] [place], [place] [phone] Glaze Supervisor: Stu Baires MD Albumin/Glob Ratio 1.2 Normal 1.0-2.5 [facility] Comment on above: Performed By: #### C P, CDP #### [facility] [address] [place], [place] [id number] Glaze Supervisor: Stu Baires MD Alkaline Phos 108 U/L High 35-104 [facility] Comment on above: Performed By: #### C P, CDP #### [facility] [address] [place], [place] [phone] Glaze Supervisor: Stu Baires MD ALT [Catalytic activity/Vol] 30 U/L Normal 5-33 [facility] Comment on above: Performed By: #### C P, CDP #### [facility] [address] [place], [place] 0324483 Glaze Supervisor: Stu Baires MD Anion gap [Moles/Vol] 8 mmol/L Low 9-17 [facility] Comment on above: Performed By: #### C P, CDP #### [facility] [address] [place], [place] 2100383 Glaze Supervisor: Stu Baires MD AST [Catalytic activity/Vol] 29 U/L Normal <32 [facility] Comment on above: Performed By: #### C P, CDP #### [facility] [address] [place] [address] Dr. [place], [place] [phone] Glaze Supervisor: Stu Baires MD Bilirubin [Mass/Vol] 0.5 mg/dL Normal 0.3-1.2 [facility] Comment on above: Performed By: #### C P, CDP #### [facility] [address] [place] [address] Dr. [place], [place] [phone] Glaze Supervisor: Stu Baires MD BUN/CRE Ratio 18 Normal 9-20 [facility] Comment on above: Performed By: #### C P, CDP #### [facility] [address] [place] [address] Dr. [place], [place] 0862783 Glaze Supervisor: Stu Baires MD Calcium [Mass/Vol] 8.4 mg/dL Low 8.6-10.4 [facility] Comment on above: Performed By: #### C P, CDP #### [facility] [address] [place] [address] Dr. [place], [place] [phone] Glaze Supervisor: Stu Baires MD Chloride [Moles/Vol] 105 mmol/L Normal 98-107 [facility] Comment on above: Performed By: #### C P, CDP #### [facility] [address] [place] [address] Glaze Supervisor: Stu Baires MD CO2 [Moles/Vol] 23 mmol/L Normal 20-31 [facility] Comment on above: Performed By: #### C P, CDP #### [facility] [address] [place] [address] Glaze Supervisor: Stu Baires MD Creatinine [Mass/Vol] 0.49 mg/dL Low 0.50-0.90 [facility] Comment on above: Performed By: #### C P, CDP #### [facility] [address] [place] [address] Glaze Supervisor: Stu Baires MD GFR/1.73 sq M.predicted among non-blacks MDRD (S/P/Bld) [Vol rate/Area] mL/min/{1.73_m2} Normal >60 [facility] Comment on above: Result Comment: These results [...] Performed By: #### C P, CDP #### [facility] [address] [place], [place] [phone] Glaze Supervisor: Stu Baires MD Glucose [Mass/Vol] 102 mg/dL High 70-99 [facility] Comment on above: Performed By: #### C P, CDP #### [facility] [address] [place] [address] Glaze Supervisor: Stu Baires MD Potassium [Moles/Vol] 3.6 mmol/L Low 3.7-5.3 [facility] Comment on above: Performed By: #### C P, CDP #### [facility] [address] [place] [address] Dr. [place], [place] [phone] Glaze Supervisor: Stu Baires MD Protein [Mass/Vol] 6.2 g/dL Low 6.4-8.3 [facility] Comment on above: Performed By: #### C P, CDP #### [facility] [address] [place] [address] Dr. [place], [place] [phone] Glaze Supervisor: Stu Baires MD Sodium [Moles/Vol] 136 mmol/L Normal 135-144 [facility] Comment on above: Performed By: #### C P, CDP #### [address] [place], [place] 6405583 Glaze Supervisor: Stu Baires MD Urea nitrogen [Mass/Vol] 9 mg/dL Normal 6-20 [facility] Comment on above: Performed By: #### C P, CDP #### [address] [place], [place] 1728283 Glaze Supervisor: Stu Baires MD Lactic Acidon 5 Lactate [Moles/Vol] 1.0 mmol/L Normal 0.5-2.2 [facility] Comment on above: Performed By: #### L ACTIC #### [address] [place], [place] [phone] Glaze Supervisor: Stu Baires MD Urinalysis, Routineon 2022 Bilirubin, SemiQt,Ur Negative Normal NEG [facility] Comment on above: Performed By: #### U MICAO, UA #### [facility] [address] [place] [address] Dr. [place], [place] [phone] Glaze Supervisor: Stu Baires MD Blood, Urine Negative Normal NEG [facility] Comment on above: Performed By: #### U MICAO, UA #### [facility] [address] [place] [address] Dr. [place], [place] [phone] Glaze Supervisor: Stu Baires MD Clarity (U) Clear Normal CLEAR [facility] Comment on above: Performed By: #### U MICAO, UA #### [facility] [address] [place] [address] Dr. [place], [place] [phone] Glaze Supervisor: Stu Baires MD Color (U) Yellow Normal YEL [facility] Comment on above: Performed By: #### U MICAO, UA #### [facility] [address] [place], [place] 7957283 Glaze Supervisor: Stu Baires MD Glucose Ql (U) Negative Normal NEG [facility] Comment on above: Performed By: #### U MICAO, UA #### [facility] [address] [place] [address] Dr. [place], [place] [phone] Glaze Supervisor: Stu Baires MD Ketones Ql (U) Negative Normal NEG [facility] Comment on above: Performed By: #### U MICAO, UA #### [facility] [address] [place] [address] Dr. [place], [place] [phone] Glaze Supervisor: Stu Baires MD Leukocyte esterase Test strip Ql (U) TRACE Abnormal NEG [facility] Comment on above: Performed By: #### U MICAO, UA #### [facility] [address] [place] [address] Dr. [place], [place] [phone] Glaze Supervisor: Stu Baires MD Nitrite,Ur Negative Normal NEG [facility] Comment on above: Performed By: #### U MICAO, UA #### [facility] [address] [place], [place] 6021483 Glaze Supervisor: Stu Baires MD PH,Ur 6.0 Normal 5.0-9.0 [facility] Comment on above: Performed By: #### U MICAO, UA #### [facility] [address] [place], [place] 4551483 Glaze Supervisor: Stu Baires MD Protein Ql (U) 1+ Abnormal NEG [facility] Comment on above: Performed By: #### U MICAO, UA #### [facility] [address] [place], [place] 8715683 Glaze Supervisor: Stu Baires MD Spec. [place],Ur >1.030 High 1.010-1.020 [facility] Comment on above: Performed By: #### U MICAO, UA #### [facility] [address] [place], [place] [phone] Glaze Supervisor: Stu Baires MD Urobilinogen,Ur Normal Normal NORM [facility] Comment on above: Performed By: #### U MICAO, UA #### [facility] [address] [place] [address] Dr. [place], [place] [phone] Glaze Supervisor: Stu Baires MD Urinalysis,Microon 3 Bacteria 2+ Abnormal NONE [facility] Comment on above: Performed By: #### U MICAO, UA #### [facility] [address] [place] [address] Dr. [place], [place] [phone] Glaze Supervisor: Stu Baires MD Epithelial cells LM Ql (Urine sed) 2 TO 5 Normal 0-25 [facility] Comment on above: Performed By: #### U MICAO, UA #### [facility] [address] [place] [address] Dr. [place], [place] [phone] Glaze Supervisor: Stu Baires MD Mucus Strands 1+ Abnormal NONE [facility] Comment on above: Performed By: #### U MICAO, UA #### [facility] [address] [place], [place] 3979683 Glaze Supervisor: Stu Baires MD Urine RBC's None Normal 0-2 [facility] Comment on above: Performed By: #### U MICAO, UA #### [facility] [address] [place], [place] [phone] Glaze Supervisor: Stu Baires MD Urine WBC's 2 TO 5 Normal 0-5 [facility] Comment on above: Performed By: #### U JEN, UA #### [facility] [address] [place] [address] Glaze Supervisor: Stu Baires MD FREE T3on 06-19-2022 FREE T3 4.07 pg/mlL Critically high 2.18-3.98 [facility] Comment on above: Performed By: #### T 4, FT3, TSH ####[facility] [address] [place] [address]DrPablo Yadav Bryant T4on 06-19-2022 T4 [Mass/Vol] 7.70 ug/dL Normal 4.80-13.90 [facility] Comment on above: Performed By: #### T 4, FT3, TSH ####[facility] [address] [place] [address]DrPablo Yadav Bryant TSHon 06-19-2022 TSH 4.022 uIU/mL Critically high 0.358-3.740 [facility] Comment on above: Performed By: #### T 4, FT3, TSH ####[facility] [address] [place] [address]Dr. Vicenta Bryant FREE T3on 05-23-2022 FREE T3 3.87 pg/mlL Normal 2.18-3.98 [facility] Comment on above: Performed By: #### T SH, FT3, T4 #### [facility] [address] [place] [address] [address] Vicenta Bryant T4on 05-23-2022 T4 [Mass/Vol] 7.00 ug/dL Normal 4.80-13.90 [facility] Comment on above: Performed By: #### T SH, FT3, T4 #### [facility] [address] [place] [address] Dr. Vicenta Bryant TSHon 05-23-2022 TSH 4.402 uIU/mL Critically high 0.358-3.740 [facility] Comment on above: Performed By: #### T SH, FT3, T4 #### [facility] [address] [place] [address] [address] Vicenta Bryant MG MAMM DX FLAQUITA 3D FU CADon 0 03-28-2022 MG MAMM DX FLAQUITA 3D FU CAD Patient: JOSÉ LUIS KURTZ Exam Date: 03/28/2022 : 1960 Gender:F Ordering : DR BULMARO PADRON . Admission #: [id number] Family : Order #: [id number] CLICK HERE TO VIEW EXAM RADIOLOGY REPORT [...] lung cancer at age 57. LOCATION: [facility] BREAST COMPOSITION: Almost entirely fatty. FINDINGS: DIAGNOSTIC [...] M.D. on 03/28/2022 at 11:35 Normal [facility] OCC BLD IMMUNO SCREENon 03-15 OCCULT BLOOD Negative Normal NEGATIVE [facility] Comment on above: Performed By: #### O BSCRN #### [facility] [address] [place] [phone] Vicenta Bryant INSULINon 03-07-2022 Insulin 10.8 uIU/mL Normal 2.6-24.9 [facility] Comment on above: Performed By: #### I NSULIN #### [facility] [address] [place], [place] [address] Dr. Vicenta Bryant T4, T3U, FTI LABCORPon 03-07 Free Thyroxine Index 1.9 Normal 1.2-4.9 [facility] Comment on above: Performed By: #### T HYLC ####[facility] [address] [place], [place] [address]Dp. Vicenta Bryant T3 Uptake 25 % Normal 24-39 [facility] Comment on above: Performed By: #### T HYLC ####[facility] [address] [place], [place] [address]PePablo Bryant T4 [Mass/Vol] 7.6 ug/dL Normal 4.5-12.0 [facility] Comment on above: Performed By: #### T HYLC ####[facility] [address] [place], [place] [address]ViPablo Bryant VIT D 25-[place] LABCORPon 2021 Vitamin D, 25-Hydroxy 24.3 ng/mL Critically low 30.0-100.0 [facility] Comment on above: Result Comment: Susi min D deficiency has been defined by the [place] [employer] and an Endocrine Society practice guideline as a level of serum 25-OH vitamin D less than 20 ng/mL (1,2). The Endocrine Society went on to further define vitamin D insufficiency as a level between 21 and 29 ng/mL (2). 1. IOM ([place] [employer]). 2010. Dietary reference intakes for calcium and D. [place]: The National Academies Press. 2. Dea ALICEA, Angelika [place], Shawn SHEARER, et al. Evaluation, treatment, and prevention of vitamin D deficiency: an Endocrine Society clinical practice guideline. JCEM. 2010; 96(7):1911-30. Performed By: #### V ITADLC ####[facility] [address] [place] [id number] Bryant CBC AUTO DIFFon 03-06-2022 BASO # 0.0 103/ul Normal 0.0-0.1 [facility] Comment on above: Performed By: #### C BC #### [facility] [address] [place] [address] Dr. Vicenta Bryant Basophils/100 WBC (Bld) 0.6 % Normal 0.2-2.0 [facility] Comment on above: Performed By: #### C BC #### [facility] [address] [place] [address] Dr. Vicenta Bryant EO # 0.1 103/ul Normal 0.0-0.7 [facility] Comment on above: Performed By: #### C BC #### [facility] [address] [place] [address] Dr. Vicenta Bryant Eosinophils/100 WBC (Bld) 1.1 % Normal 0.9-7.0 [facility] Comment on above: Performed By: #### C BC #### [facility] [address] [place] [address] Dr. Vicenta Bryant Erythrocyte distribution width (RBC) [Ratio] 12.6 % Normal 11.0-15.0 [facility] Comment on above: Performed By: #### C BC #### [facility] [address] [place] [address] Dr. Vicenta Bryant Hematocrit (Bld) [Volume fraction] 41.1 % Normal 36.0-48.0 [facility] Comment on above: Performed By: #### C BC #### [facility] [address] [place] [address] Dr. Vicenta Bryant Hemoglobin (Bld) [Mass/Vol] 13.4 g/dL Normal 12.0-16.0 [facility] Comment on above: Performed By: #### C BC #### [facility] [address] [place] [address] Dr. Vicenta Bryant IG # 0.01 10e3/ul Normal 0.00-0.03 [facility] Comment on above: Performed By: #### C BC #### [facility] [address] [place] [address] Dr. Vicenta Bryant IG % 0.2 % Normal 0.0-0.5 [facility] Comment on above: Performed By: #### C BC #### [facility] [address] [place] [address] [address] Vicenta Bryant LYMPH # 1.6 103/ul Normal 1.2-3.8 [facility] Comment on above: Performed By: #### C BC #### [facility] [address] [place] [address] Dr. Vicenta Bryant Lymphocytes/100 WBC (Bld) 25.6 % Normal 20.5-60.0 [facility] Comment on above: Performed By: #### C BC #### [facility] [address] [place] [address] Dr. Vicenta Bryant MANUAL DIFF REQ NO Normal [facility] Comment on above: Performed By: #### C BC #### [facility] [address] [place] [address] Dr. Vicenta Bryant MCH (RBC) [Entitic mass] 31.0 pg Normal 26.7-34.0 [facility] Comment on above: Performed By: #### C BC #### [facility] [address] [place] [address] Dr. Vicenta Bryant MCHC (RBC) [Mass/Vol] 32.6 g/dL Normal 29.9-35.2 [facility] Comment on above: Performed By: #### C BC #### [facility] [address] [place] [address] Dr. Vicenta Bryant MCV (RBC) [Entitic vol] 95.1 fL Normal 81.0-99.0 [facility] Comment on above: Performed By: #### C BC #### [facility] [address] [place] [address] Dr. Vicenta Bryant MONO # 0.5 103/ul Normal 0.3-0.8 [facility] Comment on above: Performed By: #### C BC #### [facility] [address] [place] [address] Dr. Vicenta Bryant Monocytes/100 WBC (Bld) 7.8 % Normal 1.7-12.0 [facility] Comment on above: Performed By: #### C BC #### [facility] [address] [place], [place] [address] Dr. Vicenta Bryant NEUT # 4.0 103/ul Normal 1.4-6.5 [facility] Comment on above: Performed By: #### C BC #### [facility] [address] [place] [address] Dr. Vicenta Bryant Neutrophils/100 WBC (Bld) 64.7 % Normal 43.0-75.0 [facility] Comment on above: Performed By: #### C BC #### [facility] [address] [place] [address] Dr. Vicenta Bryant Platelet mean volume (Bld) [Entitic vol] 10.8 fL Normal 9.5-13.5 [facility] Comment on above: Performed By: #### C BC #### [facility] [address] [place] [address] Dr. Vicenta Bryant PLT 210 103/ul Normal 150-450 [facility] Comment on above: Performed By: #### C BC #### [facility] [address] [place] [address] Dr. Vicenta Bryant RBC 4.32 106/ul Normal 4.20-5.40 [facility] Comment on above: Performed By: #### C BC #### [facility] [address] [place] [address] Dr. Vicenta Bryant WBC 6.2 103/ul Normal 4.0-11.0 [facility] Comment on above: Performed By: #### C BC #### [facility] [address] [place] [address] Dr. Vicenta Bryant GLYCOHEMOGLOBIN A1Con 2021 ADA RECOMMENDATION SEE BELOW Normal [facility] Comment on above: Result Comment: ADA RECOMMENDED LIMIT 4.0 - 6.0 ADA THERAPEUTIC TARGET < 7.0 ACTION SUGGESTED > 7.0 Performed By: #### A 1C #### [facility] [address] [place] [address] Dr. Vicenta Bryant Glucose [Mass/Vol] 91 mg/dL Normal [facility] Comment on above: Performed By: #### A 1C #### [facility] [address] [place] [address] Dr. Vicenta Bryant HbA1c (Bld) [Mass fraction] 4.8 % Normal 4.5-6.2 [facility] Comment on above: Performed By: #### A 1C #### [facility] [address] [place], [place] [address] Dr. Vicenta Bryant IRONon 03-06-2022 Iron [Mass/Vol] 73.0 ug/dL Normal 50.0-170.0 [facility] Comment on above: Performed By: #### B 12FOL, IRON ####[facility] [address] [place], [place] [address]Tk. Vicenta Bryant LIPID PROFILEon 03-06-2022 CHOL-HDL RATIO NORM SEE BELOW Normal [facility] Comment on above: Result Comment: 3.3 - 4.4 LOW RISK 4.4 - 7.1 AVERAGE RISK 7.1 - 11.0 MODERATE RISK >11.0 HIGH RISK Performed By: #### L IPID, TSH, CMP ####[facility] [address] [place], [place] [address]Tm. Vicenta Bryant Cholesterol [Mass/Vol] 134 mg/dL Normal <=200 [facility] Comment on above: Performed By: #### L IPID, TSH, CMP ####[facility] [address] [place], [place] [address]Kz. Vicenta Bryant Cholesterol in HDL [Mass/Vol] 41 mg/dL Normal 40-60 [facility] Comment on above: Performed By: #### L IPID, TSH, CMP ####[facility] [address] [place], [place] [address]Kw. Vicenta Bryant Cholesterol in LDL [Mass/Vol] 81.2 mg/dL Normal [facility] Comment on above: Performed By: #### L IPID, TSH, CMP ####[facility] [address] [place], [place] [address]Bd. Vicenta Bryant Cholesterol.total/C holesterol in HDL [Mass ratio] 3.3 {ratio} Normal [facility] Comment on above: Performed By: #### L IPID, TSH, CMP ####[facility] [address] [place] [address]Dr. Vicenta Bryant HDL NORMAL > or = 60 mg/dl - LO W CARDIOVASCULAR RISK <40 mg/dl - HIGH CARDIOVASCULAR RISK Normal [facility] Comment on above: Performed By: #### L IPID, TSH, CMP ####[facility] [address] [place] [address]Dr. Vicenta Bryant LDL CALC NORMAL SEE BELOW Normal [facility] Comment on above: Result Comment: <100 mg/dl OPTIMAL 100 - 129 mg/dl NEAR OR ABOVE OPTIMAL 130 - 159 mg/dl BORDERLINE HIGH 160 - 189 mg/dl HIGH >190 mg/dl VERY HIGH Performed By: #### L IPID, TSH, CMP ####[facility] [address] [place], [place] [address]Dr. Vicenta Bryant Triglyceride [Mass/Vol] 59 mg/dL Normal <=150 [facility] Comment on above: Performed By: #### L IPID, TSH, CMP ####[facility] [address] [place], [place] [address]Dr. Vicenta Bryant VLDL CALC 11.8 mg/dL Normal [facility] Comment on above: Performed By: #### L IPID, TSH, CMP ####[facility] [address] [place], [place] [address]Dr. Vicenta Bryant PROF 14(COMP METB)on 022 Albumin [Mass/Vol] 3.7 g/dL Normal 3.4-5.0 [facility] Comment on above: Performed By: #### L IPID, TSH, CMP ####[facility] [address] [place] [address]Dr. Vicenta Bryant Albumin/Globulin [Mass ratio] 1.1 {ratio} Normal [facility] Comment on above: Performed By: #### L IPID, TSH, CMP ####[facility] [address] [place] [address]Dr. Vicenta Bryant ALP [Catalytic activity/Vol] 115 U/L Normal 46-116 [facility] Comment on above: Performed By: #### L IPID, TSH, CMP ####[facility] [address] [place] [address]Dr. Vicenta Bryant ALT [Catalytic activity/Vol] 38 U/L Normal 14-59 [facility] Comment on above: Performed By: #### L IPID, TSH, CMP ####[facility] [address] [place] [address]Dr. Vicenta Bryant Anion gap [Moles/Vol] 12.4 mmol/L Normal [facility] Comment on above: Performed By: #### L IPID, TSH, CMP ####[facility] [address] [place] [address]Dr. Vicenta Bryant AST [Catalytic activity/Vol] 27 U/L Normal 15-37 [facility] Comment on above: Performed By: #### L IPID, TSH, CMP ####[facility] [address] [place], [place] [address]Dr. Vicenta Bryant Bilirubin [Mass/Vol] 0.3 mg/dL Normal 0.2-1.0 [facility] Comment on above: Performed By: #### L IPID, TSH, CMP ####[facility] [address] [place] [address]Dr. Vicenta Bryant Calcium [Mass/Vol] 8.9 mg/dL Normal 8.5-10.1 [facility] Comment on above: Performed By: #### L IPID, TSH, CMP ####[facility] [address] [place], [place] [address]Dr. Vicenta Bryant Chloride [Moles/Vol] 104 mmol/L Normal 98-107 [facility] Comment on above: Performed By: #### L IPID, TSH, CMP ####[facility] [address] [place] [address]Dr. Vicenta Bryant CO2 [Moles/Vol] 27.8 mmol/L Normal 21.0-32.0 [facility] Comment on above: Performed By: #### L IPID, TSH, CMP ####[facility] [address] [place] [address]Dr. Vicenta Bryant Creatinine [Mass/Vol] 0.53 mg/dL Critically low 0.55-1.02 [facility] Comment on above: Performed By: #### L IPID, TSH, CMP ####[facility] [address] [place] [address]Dr. Vicenta Bryant EGFR-AF GIBRALTARIAN >60 Normal >=60 [facility] Comment on above: Performed By: #### L IPID, TSH, CMP ####[facility] [address] [place] [address]Dr. Jocylan Bryant EGFR-NON AF GIBRALTARIAN >60 Normal >=60 [facility] Comment on above: Performed By: #### L IPID, TSH, CMP ####[facility] [address] [place], [place] [address]Dr. Vicenta Bryant Globulin (S) [Mass/Vol] 3.3 g/dL Normal [facility] Comment on above: Performed By: #### L IPID, TSH, CMP ####[facility] [address] [place], [place] [address]Dr. Vicenta Bryant Glucose [Mass/Vol] 88 mg/dL Normal 74-106 [facility] Comment on above: Performed By: #### L IPID, TSH, CMP ####[facility] [address] [place], [place] [address]Dr. Jocydawn Bryant Potassium [Moles/Vol] 4.4 mmol/L Normal 3.5-5.1 [facility] Comment on above: Performed By: #### L IPID, TSH, CMP ####[facility] [address] [place], [place] [address]Dr. Vicenta Bryant Protein [Mass/Vol] 7.0 g/dL Normal 6.4-8.2 [facility] Comment on above: Performed By: #### L IPID, TSH, CMP ####[facility] [address] [place], [place] [address]Dr. Vicenta Bryant Sodium [Moles/Vol] 139 mmol/L Normal 136-145 [facility] Comment on above: Performed By: #### L IPID, TSH, CMP ####[facility] [address] [place], [place] [address]Dr. Vicenta Bryant Urea nitrogen [Mass/Vol] 10.0 mg/dL Normal 7.0-18.0 [facility] Comment on above: Performed By: #### L IPID, TSH, CMP ####[facility] [address] [place] [id number]. Vicenta Bryant Urea nitrogen/Creatinine [Mass ratio] 18.8 mg/mg Normal [facility] Comment on above: Performed By: #### L IPID, TSH, CMP ####[facility] [address] [place] [id number]. Vicenta Bryant TSHon 03-06-2022 TSH 4.364 uIU/mL Critically high 0.358-3.740 [facility] Comment on above: Performed By: #### L IPID, TSH, CMP ####[facility] [address] [place] [id number]. Vicenta Bryant VIT B12 AND FOLATEon 022 Cobalamin (Vitamin B12) [Mass/Vol] 761.0 pg/mL Normal 193.0-986.0 [facility] Comment on above: Performed By: #### B 12FOL, IRON ####[facility] [address] [place] [address]Dr. Vicenta Bryant FOLATE 15.40 ng/mL Normal 8.60-58.90 [facility] Comment on above: Performed By: #### B 12FOL, IRON ####[facility] [address] [place] [address]Dr. Vicenta Bryant MAMMO POST BIOPSY LEFTon MAMMO POST BIOPSY LEFT Patient: JOSÉ LUIS KURTZ Exam Date: 07/25/2021 : 1960 Gender:F Ordering : DR BULMARO PADRON . Admission #: [id number] Family : Order #: [id number] CLICK HERE TO VIEW EXAM This report [...] Cobian M.D. on 08/03/2021 at 07:08 Normal [facility] US VAC ASST BX BRST LT W CLI Aryan 07-25-2021 US VAC ASST BX BRST LT W CLIP Patient: JOSÉ LUIS KURTZ Exam Date: 07/25/2021 : 1960 Gender:F Ordering : DR BULMARO PADRON . Admission #: [id number] Family : Order #: [id number] CLICK HERE TO VIEW EXAM This report [...] M.D. on 08/03/2021 at 07:07 Normal [facility] MG MAMM LT DIAG W CADon 01-0 MG MAMM LT DIAG W CAD Patient: JOSÉ LUIS KURTZ Exam Date: 07/20/2021 : 1960 Gender:F Ordering : DR BULMARO PADRON . Admission #: [id number] Family : Order #: [id number] CLICK HERE TO VIEW EXAM RADIOLOGY REPORT [...] lung cancer at age 57. LOCATION: [facility] BREAST COMPOSITION: Almost entirely fatty. FINDINGS: DIAGNOSTIC [...] M.D. on 07/20/2021 at 15:20 Normal [facility] US BREAST LEFT LIMITEDon US BREAST LEFT LIMITED Patient: JOSÉ LUIS KURTZ Exam Date: 07/20/2021 : 1960 Gender:F Ordering : DR BULMARO PADRON . Admission #: [id number] Family : Order #: [id number] CLICK HERE TO VIEW EXAM RADIOLOGY REPORT [...] lung cancer at age 57. LOCATION: [facility] BREAST COMPOSITION: Almost entirely fatty. FINDINGS: DIAGNOSTIC [...] Cobian M.D. on 07/20/2021 at 15:20 Normal [facility] JOSE Antinuclear Antibodieson 08-08-2020 JOSE IFA Note [address] [facility] Comment on above: Order Comment: Speci men Comment: Test(s) 198341-Keql-Q3 ABAP DEVELOPER (Fibrillarin)(RDL) Specimen Comment: was developed and its performance characteristics Specimen Comment: determined by [facility]. It has not been cleared or approved Specimen Comment: by the Food and Drug Administration. Specimen Comment: Test(s) 185625-Viit-QY/Scl-75 Ab (RDL) Specimen Comment: was developed and [...] titers Nucleosomes, Histones Drug-induced SLE Speckled Sm, ABAP DEVELOPER, SCL-70, SLE,MCTD,PSS (diffuse form), SS-A/SS-B Sjogrens Nucleolar SCL-70, PM-1/SCL High titers Scleroderma, PM/DM Centromere Centromere PSS (limited form) w/Crest syndrome variable Nuclear Dot Sp100,[id number] Primary Biliary Cirrhosis Nuclear GP210, Primary Biliary Cirrhosis Membrane rosi A,B,C Performed at: [facility] [employer] [address] [id number] Glaze Supervisor: David Pace PhD, Phone: [phone] Performed By: #### A NTIR, RNA POLYMR, HEP C, ANTI TH TO, HBCAB, PM-SCL ABS, U3 ABAP DEVELOPER, HBSAG, HBSAB, JOSE #### [facility] , #### CRP, CK, CMP #### [facility] [address] Antinuclear Abs, IFA Positive Critically abnormal . [facility] Comment on above: Order Comment: Speci men Comment: Test(s) 752917-Cprr-K8 ABAP DEVELOPER (Fibrillarin)(RDL) Specimen Comment: was developed and its performance characteristics Specimen Comment: determined by [facility]. It has not been cleared or approved Specimen Comment: by the Food and Drug Administration. Specimen Comment: Test(s) 970795-Lqvc-XR/Scl-75 Ab (RDL) Specimen Comment: was developed and its performance characteristics Specimen Comment: determined by [facility]. It has not been cleared or approved Specimen Comment: by the Food and Drug Administration. Result Comment: Nega tive <1:80 Borderline 1:80 Positive >1:80 Performed By: #### A NTIR, RNA POLYMR, HEP C, ANTI TH TO, HBCAB, PM-SCL ABS, U3 ABAP DEVELOPER, HBSAG, HBSAB, JOSE #### [facility] , #### CRP, CK, CMP #### [facility] [address] [place] [address] [place] Speckled Pattern 1:640 High . [facility] Comment on above: Order Comment: Speci men Comment: Test(s) 645825-Vate-U2 ABAP DEVELOPER (Fibrillarin)(RDL) Specimen Comment: was developed and its performance characteristics Specimen Comment: determined by [facility]. It has not been cleared or approved Specimen Comment: by the Food and Drug Administration. Specimen Comment: Test(s) 659057-Lgtd-VB/Scl-75 Ab (RDL) Specimen Comment: was developed and its performance characteristics Specimen Comment: determined by [facility]. It has not been cleared or approved Specimen Comment: by the Food and Drug Administration. Performed By: #### A NTIR, RNA POLYMR, HEP C, ANTI TH TO, HBCAB, PM-SCL ABS, U3 ABAP DEVELOPER, HBSAG, HBSAB, JOSE #### [facility] , #### CRP, CK, CMP #### [facility] [address] [place] [address] [place] Anti-RNPon 08-08-2020 Anti-ABAP DEVELOPER <0.2 Normal 0.0-0.[address] [facility] Comment on above: Order Comment: Speci men Comment: Test(s) 462777-Hsfx-U9 ABAP DEVELOPER (Fibrillarin)(RDL) Specimen Comment: was developed and its performance characteristics Specimen Comment: determined by [facility]. It has not been cleared or approved Specimen Comment: by the Food and Drug Administration. Specimen Comment: Test(s) 269618-Pqwe-SU/Scl-75 Ab (RDL) Specimen Comment: was developed and its performance characteristics Specimen Comment: determined by [facility]. It has not been cleared or approved Specimen Comment: by the Food and Drug Administration. Result Comment: Perf ormed at: - [facility] [address] [id number] Glaze Supervisor: David Pace PhD, Phone: [phone] Performed By: #### A NTIR, RNA POLYMR, HEP C, ANTI TH TO, HBCAB, PM-SCL ABS, U3 ABAP DEVELOPER, HBSAG, HBSAB, JOSE #### [facility] , #### CRP, CK, CMP #### [address] C-Reactive Proteinon CRP [Mass/Vol] 0.6 mg/dL Normal 0.0-1.[address] [facility] Comment on above: Result Comment: PERF ORMED BY: [place] [address] PATHOLOGIST INVESTMENT TRADER BEAU JOHNSON M.D. Performed By: #### A NTIR, RNA POLYMR, HEP C, ANTI TH TO, HBCAB, PM-SCL ABS, U3 ABAP DEVELOPER, HBSAG, HBSAB, JOSE #### [facility] , #### CRP, CK, CMP #### [address] Complement C3on 08-08-2020 Complement C3 125 mg/dL Normal 82-[address] [facility] Comment on above: Result Comment: Perf ormed at: - [facility] [address] [id number] Glaze Supervisor: David Pace PhD, Phone: [phone] Performed By: #### A NTIR, RNA POLYMR, HEP C, ANTI TH TO, HBCAB, PM-SCL ABS, U3 ABAP DEVELOPER, HBSAG, HBSAB, JOSE #### [facility] , #### CRP, CK, CMP #### [address] Complement C4on 08-08-2020 Complement C4 17 mg/dL Normal 12-[address] [facility] Comment on above: Performed By: #### A NTIR, RNA POLYMR, HEP C, ANTI TH TO, HBCAB, PM-SCL ABS, U3 ABAP DEVELOPER, HBSAG, HBSAB, JOSE #### [facility] , #### CRP, CK, CMP #### [address] Complement Total (CH50)on Complement Total (CH50) >60 Normal >[address] [facility] Comment on above: Result Comment: Age Male [...] of range values. Performed at: - [facility] [address] [id number] Glaze Supervisor: David Pace PhD, Phone: [phone] PERFORMED BY: [place] [address] PATHOLOGIST INVESTMENT TRADER BEAU JOHNSON M.D. Performed By: #### A NTIR, RNA POLYMR, HEP C, ANTI TH TO, HBCAB, PM-SCL ABS, U3 ABAP DEVELOPER, HBSAG, HBSAB, JOSE #### [facility] , #### CRP, CK, CMP #### [address] Complete Blood Count Auto Di ffon 08-08-2020 Basophils (Bld) [#/Vol] 0.0 10*3/uL Normal 0.0-0.[address] [facility] Comment on above: Performed By: #### A NTIR, RNA POLYMR, HEP C, ANTI TH TO, HBCAB, PM-SCL ABS, U3 ABAP DEVELOPER, HBSAG, HBSAB, JOSE #### [facility] , #### CRP, CK, CMP #### [facility] [address] [place] [address] Basophils/100 WBC (Bld) 0.4 % Normal . [facility] Comment on above: Performed By: #### A NTIR, RNA POLYMR, HEP C, ANTI TH TO, HBCAB, PM-SCL ABS, U3 ABAP DEVELOPER, HBSAG, HBSAB, JOSE #### [facility] , #### CRP, CK, CMP #### [address] Eosinophils (Bld) [#/Vol] 0.0 10*3/uL Normal 0.0-0.[address] [facility] Comment on above: Performed By: #### A NTIR, RNA POLYMR, HEP C, ANTI TH TO, HBCAB, PM-SCL ABS, U3 ABAP DEVELOPER, HBSAG, HBSAB, JOSE #### [facility] , #### CRP, CK, CMP #### [address] Eosinophils/100 WBC (Bld) 0.6 % Normal . [facility] Comment on above: Performed By: #### A NTIR, RNA POLYMR, HEP C, ANTI TH TO, HBCAB, PM-SCL ABS, U3 ABAP DEVELOPER, HBSAG, HBSAB, JOSE #### [facility] , #### CRP, CK, CMP #### [address] Erythrocyte distribution width (RBC) [Ratio] 12.7 % Normal 11.9-15.[address] [facility] Comment on above: Performed By: #### A NTIR, RNA POLYMR, HEP C, ANTI TH TO, HBCAB, PM-SCL ABS, U3 ABAP DEVELOPER, HBSAG, HBSAB, JOSE #### [facility] , #### CRP, CK, CMP #### [address] Hematocrit (Bld) [Volume fraction] 40.9 % Normal 34.0-46.[address] [facility] Comment on above: Performed By: #### A NTIR, RNA POLYMR, HEP C, ANTI TH TO, HBCAB, PM-SCL ABS, U3 ABAP DEVELOPER, HBSAG, HBSAB, JOSE #### [facility] , #### CRP, CK, CMP #### [address] Hemoglobin (Bld) [Mass/Vol] 13.5 g/dL Normal 11.8-15.[address] [facility] Comment on above: Performed By: #### A NTIR, RNA POLYMR, HEP C, ANTI TH TO, HBCAB, PM-SCL ABS, U3 ABAP DEVELOPER, HBSAG, HBSAB, JOSE #### [facility] , #### CRP, CK, CMP #### [address] Lymphocytes (Bld) [#/Vol] 1.7 10*3/uL Normal 1.00-4.[address] [facility] Comment on above: Performed By: #### A NTIR, RNA POLYMR, HEP C, ANTI TH TO, HBCAB, PM-SCL ABS, U3 ABAP DEVELOPER, HBSAG, HBSAB, JOSE #### [facility] , #### CRP, CK, CMP #### [address] Lymphocytes/100 WBC (Bld) 25.7 % Normal . [facility] Comment on above: Performed By: #### A NTIR, RNA POLYMR, HEP C, ANTI TH TO, HBCAB, PM-SCL ABS, U3 ABAP DEVELOPER, HBSAG, HBSAB, JOSE #### [facility] , #### CRP, CK, CMP #### [address] MCH (RBC) [Entitic mass] 32.9 g/dL Normal 32.0-35.[address] [facility] Comment on above: Performed By: #### A NTIR, RNA POLYMR, HEP C, ANTI TH TO, HBCAB, PM-SCL ABS, U3 ABAP DEVELOPER, HBSAG, HBSAB, JOSE #### [facility] , #### CRP, CK, CMP #### [address] MCH (RBC) [Entitic mass] 31.1 pg Normal 24.7-34.[address] [facility] Comment on above: Performed By: #### A NTIR, RNA POLYMR, HEP C, ANTI TH TO, HBCAB, PM-SCL ABS, U3 ABAP DEVELOPER, HBSAG, HBSAB, JOSE #### [facility] , #### CRP, CK, CMP #### [address] MCV (RBC) [Entitic vol] 94.4 fL Normal 80-[address] [facility] Comment on above: Performed By: #### A NTIR, RNA POLYMR, HEP C, ANTI TH TO, HBCAB, PM-SCL ABS, U3 ABAP DEVELOPER, HBSAG, HBSAB, JOSE #### [facility] , #### CRP, CK, CMP #### [address] Monocytes (Bld) [#/Vol] 0.6 10*3/uL Normal 0.0-0.[address] [facility] Comment on above: Performed By: #### A NTIR, RNA POLYMR, HEP C, ANTI TH TO, HBCAB, PM-SCL ABS, U3 ABAP DEVELOPER, HBSAG, HBSAB, JOSE #### [facility] , #### CRP, CK, CMP #### [address] Monocytes/100 WBC (Bld) 8.9 % Normal . [facility] Comment on above: Performed By: #### A NTIR, RNA POLYMR, HEP C, ANTI TH TO, HBCAB, PM-SCL ABS, U3 ABAP DEVELOPER, HBSAG, HBSAB, JOSE #### [facility] , #### CRP, CK, CMP #### [address] Neutrophils (Bld) [#/Vol] 4.2 10*3/uL Normal 1.8-7.[address] [facility] Comment on above: Performed By: #### A NTIR, RNA POLYMR, HEP C, ANTI TH TO, HBCAB, PM-SCL ABS, U3 ABAP DEVELOPER, HBSAG, HBSAB, JOSE #### [facility] , #### CRP, CK, CMP #### [address] Neutrophils/100 WBC (Bld) 64.4 % Normal . [facility] Comment on above: Performed By: #### A NTIR, RNA POLYMR, HEP C, ANTI TH TO, HBCAB, PM-SCL ABS, U3 ABAP DEVELOPER, HBSAG, HBSAB, JOSE #### [facility] , #### CRP, CK, CMP #### [address] Nucleated RBC/100 WBC (Bld) [Ratio] 0.1 % Normal 0-0.[address] [facility] Comment on above: Performed By: #### A NTIR, RNA POLYMR, HEP C, ANTI TH TO, HBCAB, PM-SCL ABS, U3 ABAP DEVELOPER, HBSAG, HBSAB, JOSE #### [facility] , #### CRP, CK, CMP #### [address] Platelet mean volume (Bld) [Entitic vol] 9.8 fL Normal 6.3-10.[address] [facility] Comment on above: Performed By: #### A NTIR, RNA POLYMR, HEP C, ANTI TH TO, HBCAB, PM-SCL ABS, U3 ABAP DEVELOPER, HBSAG, HBSAB, JOSE #### [facility] , #### CRP, CK, CMP #### [address] Platelets (Bld) [#/Vol] 206 10*3/uL Normal 150-[address] [facility] Comment on above: Performed By: #### A NTIR, RNA POLYMR, HEP C, ANTI TH TO, HBCAB, PM-SCL ABS, U3 ABAP DEVELOPER, HBSAG, HBSAB, JOSE #### [facility] , #### CRP, CK, CMP #### [address] RBC (Bld) [#/Vol] 4.33 10*6/uL Normal 3.60-5.00 [facility] Comment on above: Performed By: #### A NTIR, RNA POLYMR, HEP C, ANTI TH TO, HBCAB, PM-SCL ABS, U3 ABAP DEVELOPER, HBSAG, HBSAB, JOSE #### [facility] , #### CRP, CK, CMP #### [address] WBC (Bld) [#/Vol] 6.5 10*3/uL Normal 3.8-11.6 [facility] Comment on above: Performed By: #### A NTIR, RNA POLYMR, HEP C, ANTI TH TO, HBCAB, PM-SCL ABS, U3 ABAP DEVELOPER, HBSAG, HBSAB, JOSE #### [facility] , #### CRP, CK, CMP #### [address] Comprehensive Metabolic Pane lilian 08-08-2020 Albumin [Mass/Vol] 4.1 g/dL Normal 3.2-5.5 [facility] Comment on above: Performed By: #### A NTIR, RNA POLYMR, HEP C, ANTI TH TO, HBCAB, PM-SCL ABS, U3 ABAP DEVELOPER, HBSAG, HBSAB, JOSE #### [facility] , #### CRP, CK, CMP #### [address] Albumin/Globulin [Mass ratio] 1.9 {ratio} Normal [facility] Comment on above: Performed By: #### A NTIR, RNA POLYMR, HEP C, ANTI TH TO, HBCAB, PM-SCL ABS, U3 ABAP DEVELOPER, HBSAG, HBSAB, JOSE #### [facility] , #### CRP, CK, CMP #### [facility] [address] [place] [address] ALP [Catalytic activity/Vol] 81 U/L Normal 32-[address] [facility] Comment on above: Performed By: #### A NTIR, RNA POLYMR, HEP C, ANTI TH TO, HBCAB, PM-SCL ABS, U3 ABAP DEVELOPER, HBSAG, HBSAB, JOSE #### [facility] , #### CRP, CK, CMP #### [address] ALT [Catalytic activity/Vol] 35 U/L Normal 10-[address] [facility] Comment on above: Performed By: #### A NTIR, RNA POLYMR, HEP C, ANTI TH TO, HBCAB, PM-SCL ABS, U3 ABAP DEVELOPER, HBSAG, HBSAB, JOSE #### [facility] , #### CRP, CK, CMP #### [address] AST [Catalytic activity/Vol] 25 U/L Normal 10-[address] [facility] Comment on above: Performed By: #### A NTIR, RNA POLYMR, HEP C, ANTI TH TO, HBCAB, PM-SCL ABS, U3 ABAP DEVELOPER, HBSAG, HBSAB, JOSE #### [facility] , #### CRP, CK, CMP #### [address] Bilirubin [Mass/Vol] 0.4 mg/dL Normal 0.3-1.[address] [facility] Comment on above: Performed By: #### A NTIR, RNA POLYMR, HEP C, ANTI TH TO, HBCAB, PM-SCL ABS, U3 ABAP DEVELOPER, HBSAG, HBSAB, JOSE #### [facility] , #### CRP, CK, CMP #### [address] Calcium [Mass/Vol] 9.2 mg/dL Normal 8.2-10.2 [facility] Comment on above: Performed By: #### A NTIR, RNA POLYMR, HEP C, ANTI TH TO, HBCAB, PM-SCL ABS, U3 ABAP DEVELOPER, HBSAG, HBSAB, JOSE #### [facility] , #### CRP, CK, CMP #### [address] Chloride [Moles/Vol] 106 mmol/L Normal 95-[address] [facility] Comment on above: Performed By: #### A NTIR, RNA POLYMR, HEP C, ANTI TH TO, HBCAB, PM-SCL ABS, U3 ABAP DEVELOPER, HBSAG, HBSAB, JOSE #### [facility] , #### CRP, CK, CMP #### [address] CO2 [Moles/Vol] 28.1 mmol/L Normal 22.0-30.0 [facility] Comment on above: Performed By: #### A NTIR, RNA POLYMR, HEP C, ANTI TH TO, HBCAB, PM-SCL ABS, U3 ABAP DEVELOPER, HBSAG, HBSAB, JOSE #### [facility] , #### CRP, CK, CMP #### [address] Creatinine [Mass/Vol] 0.64 mg/dL Normal 0.44-1.[address] [facility] Comment on above: Performed By: #### A NTIR, RNA POLYMR, HEP C, ANTI TH TO, HBCAB, PM-SCL ABS, U3 ABAP DEVELOPER, HBSAG, HBSAB, JOSE #### [facility] , #### CRP, CK, CMP #### [address] Estimated GFR ( Tari > 60 [facility] Comment on above: Result Comment: GFR estimated reference range: According to KDOQI guidelines, <60 ml/min/1.73m2 is sufficient to diagnose a patient with chronic kidney disease. Performed By: #### A NTIR, RNA POLYMR, HEP C, ANTI TH TO, HBCAB, PM-SCL ABS, U3 ABAP DEVELOPER, HBSAG, HBSAB, JOSE #### [facility] , #### CRP, CK, CMP #### [address] Estimated GFR (Non- Am > [address] [facility] Comment on above: Performed By: #### A NTIR, RNA POLYMR, HEP C, ANTI TH TO, HBCAB, PM-SCL ABS, U3 ABAP DEVELOPER, HBSAG, HBSAB, JOSE #### [facility] , #### CRP, CK, CMP #### [address] Globulin (S) [Mass/Vol] 2.2 g/dL Normal [facility] Comment on above: Performed By: #### A NTIR, RNA POLYMR, HEP C, ANTI TH TO, HBCAB, PM-SCL ABS, U3 ABAP DEVELOPER, HBSAG, HBSAB, JOSE #### [facility] , #### CRP, CK, CMP #### [address] Glucose [Mass/Vol] 87 mg/dL Normal 70-100 [facility] Comment on above: Result Comment: [facility] Glucose Reference Range is dependent on time and content of last meal. Glucose of more than 200 mg/dL in a nonstressed, ambulatory subject supports the diagnosis of Diabetes Mellitus. ADA recommended reference range Performed By: #### A NTIR, RNA POLYMR, HEP C, ANTI TH TO, HBCAB, PM-SCL ABS, U3 ABAP DEVELOPER, HBSAG, HBSAB, JOSE #### [facility] , #### CRP, CK, CMP #### [address] Potassium [Moles/Vol] 4.5 mmol/L Normal 3.5-5.[address] [facility] Comment on above: Performed By: #### A NTIR, RNA POLYMR, HEP C, ANTI TH TO, HBCAB, PM-SCL ABS, U3 ABAP DEVELOPER, HBSAG, HBSAB, JOSE #### [facility] , #### CRP, CK, CMP #### [address] Protein [Mass/Vol] 6.3 g/dL Normal 6.1-7.9 [place] [facility] Comment on above: Performed By: #### A NTIR, RNA POLYMR, HEP C, ANTI TH TO, HBCAB, PM-SCL ABS, U3 ABAP DEVELOPER, HBSAG, HBSAB, JOSE #### [facility] , #### CRP, CK, CMP #### [address] Sodium [Moles/Vol] 143 mmol/L Normal 136-146 [facility] Comment on above: Performed By: #### A NTIR, RNA POLYMR, HEP C, ANTI TH TO, HBCAB, PM-SCL ABS, U3 ABAP DEVELOPER, HBSAG, HBSAB, JOSE #### [facility] , #### CRP, CK, CMP #### [address] Urea nitrogen [Mass/Vol] 11 mg/dL Normal 9-[address] [facility] Comment on above: Performed By: #### A NTIR, RNA POLYMR, HEP C, ANTI TH TO, HBCAB, PM-SCL ABS, U3 ABAP DEVELOPER, HBSAG, HBSAB, JOSE #### [facility] , #### CRP, CK, CMP #### [address] Creatine Kinaseon 08-08-2020 CK [Catalytic activity/Vol] 39 U/L Normal 22-[address] [facility] Comment on above: Result Comment: PERF ORMED BY: [place] [address] PATHOLOGIST INVESTMENT TRADER BEAU JOHNSON M.D. Performed By: #### A NTIR, RNA POLYMR, HEP C, ANTI TH TO, HBCAB, PM-SCL ABS, U3 ABAP DEVELOPER, HBSAG, HBSAB, JOSE #### [facility] , #### CRP, CK, CMP #### [address] Erythrocyte Sedimentation Ra byron 08-08-2020 ESR (Bld) [Velocity] 4 mm/h Normal 0-[address] [facility] Comment on above: Result Comment: PERF ORMED BY: [place] [address] PATHOLOGIST INVESTMENT TRADER BEAU JOHNSON M.D. Performed By: #### A NTIR, RNA POLYMR, HEP C, ANTI TH TO, HBCAB, PM-SCL ABS, U3 ABAP DEVELOPER, HBSAG, HBSAB, JOSE #### [facility] , #### CRP, CK, CMP #### [address] Hep C Ab w Verificationon HCV AB <0.1 Normal 0.0-0.[address] [facility] Comment on above: Order Comment: Speci men Comment: Test(s) [id number]-Ufoy-O9 ABAP DEVELOPER (Fibrillarin)(RDL) Specimen Comment: was developed and its performance characteristics Specimen Comment: determined by [facility]. It has not been cleared or approved Specimen Comment: by the Food and Drug Administration. Specimen Comment: Test(s) [id number]-Moks-BZ/Scl-75 Ab (RDL) Specimen Comment: was developed and its performance characteristics Specimen Comment: determined by [facility]. It has not been cleared or approved Specimen Comment: by the Food and Drug Administration. Performed By: #### A NTIR, RNA POLYMR, HEP C, ANTI TH TO, HBCAB, PM-SCL ABS, U3 ABAP DEVELOPER, HBSAG, HBSAB, JOSE #### [facility] , #### CRP, CK, CMP #### [address] HCV Ab Comment Normal . [facility] Comment on above: Order Comment: Speci men Comment: Test(s) [id number]-Vbmo-J2 ABAP DEVELOPER (Fibrillarin)(RDL) Specimen Comment: was developed and its performance characteristics Specimen Comment: determined by [facility]. It has not been cleared or approved Specimen Comment: by the Food and Drug Administration. Specimen Comment: Test(s) [id number]-Dbdy-IV/Scl-75 Ab (RDL) Specimen Comment: was developed and [...] ANTI TH TO, HBCAB, PM-SCL ABS, U3 ABAP DEVELOPER, HBSAG, HBSAB, JOSE #### [facility] , #### CRP, CK, CMP #### [facility] [address] [place] [address] Hepatitis B Core Antibodyon 08-08-2020 Hepatitis B Core Antibody Negative Normal Negative [facility] Comment on above: Order Comment: Speci men Comment: Test(s) [id number]-Gxdx-E7 ABAP DEVELOPER (Fibrillarin)(RDL) Specimen Comment: was developed and its performance characteristics Specimen Comment: determined by [facility]. It has not been cleared or approved Specimen Comment: by the Food and Drug Administration. Specimen Comment: Test(s) [id number]-Gxfr-NW/Scl-75 Ab (RDL) Specimen Comment: was developed and its performance characteristics Specimen Comment: determined by [facility]. It has not been cleared or approved Specimen Comment: by the Food and Drug Administration. Result Comment: Perf ormed at: - [facility] [id number] Glaze Supervisor: David Pace PhD, Phone: [phone] Performed By: #### A NTIR, RNA POLYMR, HEP C, ANTI TH TO, HBCAB, PM-SCL ABS, U3 ABAP DEVELOPER, HBSAG, HBSAB, JOSE #### [facility] , #### CRP, CK, CMP #### [address] Hepatitis B Surface Antibody on 08-08-2020 Hepatitis B Surface Antibody Non Reactive Normal . [facility] Comment on above: Order Comment: Speci men Comment: Test(s) [id number]-Zipy-K4 ABAP DEVELOPER (Fibrillarin)(RDL) Specimen Comment: was developed and its performance characteristics Specimen Comment: determined by [facility]. It has not been cleared or approved Specimen Comment: by the Food and Drug Administration. Specimen Comment: Test(s) [id number]-Ndvy-EH/Scl-75 Ab (RDL) Specimen Comment: was developed and [...] ANTI TH TO, HBCAB, PM-SCL ABS, U3 ABAP DEVELOPER, HBSAG, HBSAB, JOSE #### [facility] , #### CRP, CK, CMP #### [address] Hepatitis B Surface Antigeno n 08-08-2020 HBsAg Screen Negative Normal Negative [facility] Comment on above: Order Comment: Speci men Comment: Test(s) [id number]-Aqlg-K1 ABAP DEVELOPER (Fibrillarin)(RDL) Specimen Comment: was developed and its performance characteristics Specimen Comment: determined by [facility]. It has not been cleared or approved Specimen Comment: by the Food and Drug Administration. Specimen Comment: Test(s) [id number]-Emqk-RQ/Scl-75 Ab (RDL) Specimen Comment: was developed and its performance characteristics Specimen Comment: determined by [facility]. It has not been cleared or approved Specimen Comment: by the Food and Drug Administration. Performed By: #### A NTIR, RNA POLYMR, HEP C, ANTI TH TO, HBCAB, PM-SCL ABS, U3 ABAP DEVELOPER, HBSAG, HBSAB, JOSE #### [facility] , #### CRP, CK, CMP #### [place] [address] [place] PM-SCL Antibodieson 08-08-19 21 JOHN PM-Scl Antibody <20 Normal <20 [facility] Comment on above: Order Comment: Speci men Comment: Test(s) [id number]-Tfjc-J9 ABAP DEVELOPER (Fibrillarin)(RDL) Specimen Comment: was developed and its performance characteristics Specimen Comment: determined by [facility]. It has not been cleared or approved Specimen Comment: by the Food and Drug Administration. Specimen Comment: Test(s) [id number]-Yedn-ZT/Scl-75 Ab (RDL) Specimen Comment: was developed and its performance characteristics Specimen Comment: determined by [facility]. It has not been cleared or approved Specimen Comment: by the Food and Drug Administration. Result Comment: Nega tive: <20 Weak Positive: 20 - 39 Moderate Positive: 40 - 80 Strong Positive: >80 Performed at: [facility] [address] [place] [id number] Glaze Supervisor: Shay Mcnair MD, Phone: [phone] Performed By: #### A NTIR, RNA POLYMR, HEP C, ANTI TH TO, HBCAB, PM-SCL ABS, U3 ABAP DEVELOPER, HBSAG, HBSAB, JOSE #### [facility] , #### CRP, CK, CMP #### [facility] [address] [place] [address] [place] RNA Polymerase IIion RNA Polymerase IIi <20 Normal <20 [facility] Comment on above: Order Comment: Speci men Comment: Test(s) [id number]-Mfbd-Qr/To Ab (RDL) Specimen Comment: was developed and its performance characteristics Specimen Comment: determined by [facility]. It has not been cleared or approved Specimen Comment: by the Food and Drug Administration. Result Comment: Nega tive: <20 Weak Positive: 20 - 39 Moderate Positive: 40 - 80 Strong Positive: >80 Performed at: [facility] [address] [place] [address] [id number] Glaze Supervisor: Shay Mcnair MD, Phone: [phone] PERFORMED BY: [place] [address] PATHOLOGIST INVESTMENT TRADER BEAU JOHNSON M.D. Performed By: #### A NTIR, RNA POLYMR, HEP C, ANTI TH TO, HBCAB, PM-SCL ABS, U3 ABAP DEVELOPER, HBSAG, HBSAB, JOSE #### [facility] , #### CRP, CK, CMP #### [facility] [address] [place] [address] [place] Th/To Antibodyon 08-08-2020 Th/To Antibody Negative Normal Negative [facility] Comment on above: Order Comment: Speci men Comment: Test(s) [id number]-Iaym-Ek/To Ab (RDL) Specimen Comment: was developed and its performance characteristics Specimen Comment: determined by [facility]. It has not been cleared or approved Specimen Comment: by the Food and Drug Administration. Result Comment: Perf ormed at: [facility] [address] [place], [place] [id number] Glaze Supervisor: Shay Mcnair MD, Phone: [phone] Performed By: #### A NTIR, RNA POLYMR, HEP C, ANTI TH TO, HBCAB, PM-SCL ABS, U3 ABAP DEVELOPER, HBSAG, HBSAB, JOSE #### [facility] , #### CRP, CK, CMP #### [facility] [address] [place] [address] [place] U3 Rnpon 08-08-2020 U3 Bailiff Negative Normal Negative [facility] Comment on above: Order Comment: Speci men Comment: Test(s) [id number]-Yidj-D3 ABAP DEVELOPER (Fibrillarin)(RDL) Specimen Comment: was developed and its performance characteristics Specimen Comment: determined by [facility]. It has not been cleared or approved Specimen Comment: by the Food and Drug Administration. Specimen Comment: Test(s) [id number]-Sikx-QC/Scl-75 Ab (RDL) Specimen Comment: was developed and its performance characteristics Specimen Comment: determined by [facility]. It has not been cleared or approved Specimen Comment: by the Food and Drug Administration. Result Comment: Perf ormed at: [facility] [address] [place] [id number] Glaze Supervisor: Shay Mcnair MD, Phone: [phone] PERFORMED BY: [place] [address] PATHOLOGIST INVESTMENT TRADER BEAU JOHNSON M.D. Performed By: #### A NTIR, RNA POLYMR, HEP C, ANTI TH TO, HBCAB, PM-SCL ABS, U3 ABAP DEVELOPER, HBSAG, HBSAB, JOSE #### [facility] , #### CRP, CK, CMP #### [facility] [address] [place] [address] [place] T4on 08-02-2020 T4, Total 9.9 ug/dL 4.5 - 10.9 ug/dL [facility] [place] TSH without Reflexon 021 Interpretation and review of laboratory results Abnormal [place], [place] TSH Qn 5.63 m[IU]/L [place], [place] Vital Signs Date Time Vital Sign Value Performing Clinician Faci lity 01-10-2023 19:11-0400 SaO2% (BldA) [Mass fraction] 92 % Bulmaro Padron MD Work Phone: [facility] 01-10-2023 18:46-0400 Diastolic blood pressure 75 mm[Hg] Bulmaro Padron MD Work Phone: [facility] 01-10-2023 18:46-0400 Systolic blood pressure 166 mm[Hg] Bulmaro Padron MD Work Phone: [facility] 01-10-2023 17:33-0400 Body temperature 97.9 [degF] Bulmaro Padron MD Work Phone: [facility] 01-10-2023 17:33-0400 Heart rate 71 /min Bulmaro Padron MD Work Phone: [facility] 01-10-2023 17:33-0400 Respiratory rate 16 /min Bulmaro Padron MD Work Phone: [facility] Encounters Encounter Date Encounter Type Care Provider Facility Start: 05-28-2023 End: 05-29-2023 ambulatory Aayush MENDOZA Facility:[facility] Start: 05-27-2023 ambulatory Aayush CHOPRAL Facility:[facility] Start: 04-29-2023 ambulatory Aayush CHOPRAL Facility:[facility] Start: 04-02-2023 End: 04-03-2023 ambulatory ARMIDA AGEE [facility] Start: 02-01-2023 End: 02-01-2023 Subsequent hospital visit by physician Bulmaro Padron MD Work Phone: [facility] Laboratory Comment on above: Nocturia; Frequency of urination; Urge incontinence Start: 02-01-2023 End: 02-04-[address] [facility] Start: 01-10-2023 Emergency department patient visit BULMARO Gee [facility] Start: 01-10-2023 End: 01-10-2023 Emergency department patient visit Bulmaro Padron MD Work Phone: [facility] ED Comment on above: Right ureteral stone (Primary Dx) Start: 10-09-2022 Emergency department patient visit JORDYN EATON [facility] Start: 06-19-2022 End: 06-20-[address] BULMARO [...] bacterial quanttative colony count urine Gabbie White GOVERNMENT AFFAIRS SPECIALIST - TANK 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: Start: 01-10-2023 Ct abdomen & pelvis w/o contrast material Cari Bedkarine GOVERNMENT AFFAIRS SPECIALIST - [employer]ANK 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: Start: 01-10-2023 Comprehensive metabo lic panel Cari Bedenkop GOVERNMENT AFFAIRS SPECIALIST - TANK 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: Start: 01-10-2023 Urinalysis microscopic only Unknown Provider Result Start: 01-10-2023 Urnls dip stick/tabl et rgnt auto w/o microscopy Cari Bedkarine GOVERNMENT AFFAIRS SPECIALIST - T[employer] 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: Start: 08-02-2020 Assay of thyroid stimulating hormone tsh Bulmaro Padron Work Phone: Start: 08-02-2020 Assay of thyroxine total Bulmaro Padron Work Phone: Plan of Treatment Date Care Activity Detail Author Start: 01-27-2028 DTaP/Tdap/Td vaccine (2 - Td or Tdap) DTaP/Tdap/Td vaccine (2 - Td or Tdap) [facility] Start: 01-27-2028 DTaP/Tdap/Td vaccine (2 - Td) DTaP/Tdap/Td vaccine (2 - Td) [place] Start: 02-12-2023 Influenza vaccination B [facility] Start: 03-15-2020 Influenza vaccination Flu vaccine (# 1) [place] Start: 01-04-2019 Annual Wellness Visi t (AWV) Annual Wellness Visit (AWV) [facility] Start: 2012 Screening for malign ant neoplasm of breast Breast cancer screen [facility] Start: 2012 Screening for malign ant neoplasm of colon Colon cancer screen colonoscopy [place], [place] Start: 2012 Shingles Vaccine (1 of 2) Shingles Vaccine (1 of 2) [facility] Start: 12-15-2007 Screening for malign ant neoplasm of colon [facility] Start: 2002 Lipid panel [facility] Start: 1997 Diabetes screen Diabetes screen [facility] Start: 1992 Screening for malign ant neoplasm of cervix [facility] Start: 12-15-1983 Screening for malign ant neoplasm of cervix [facility] Start: 1980 Hepatitis C screening Hepatitis C sc [facility] Start: 1977 HIV screening HIV screen [facility] Start: 1974 Depression Screen Depression Screen [facility] Start: 06-15-1963 COVID-19 Vaccine (#1) COVID-19 Vacci ne (#1) [facility] Start: 1962 Hepatitis C screening Hepatitis C sc [place], [place] End: 08-02-2020 Free T3 [Mass/Vol] T3, Free Lab Routine Once for 1 Occurrences starting 08/02/2020 until 08/02/2020 [place] Comment on above: Once for 1 Occurrenc es starting 08/02/2020 until 08/02/2020 Free T3 [Mass/Vol] T3, Free Lab Routine 08/02/2020 10:13 AM EST [place] Immunizations Immunization Date Immunization Notes Care Provider Gt doyle 01-26-2018 tetanus toxoid, redu clare diphtheria toxoid, and acellular pertussis vaccine, adsorbed Bulmaro Hoy [facility] Payers Date Payer Category Payer Medicare [id number] [id number] [id number] 2017 Unknown [id number] 1962 Unknown [id number] 2.16.84 [id number] 1962 Unknown [id number] 2.16.84 [id number] 1962 Unknown [id number] 2.16.84 [id number] 1962 Unknown [id number] 2.16.84 [id number] 1962 Unknown [id number] 2.16.84 [id number] 1962 Unknown [id number] 2.16.84 [id number] 1962 Unknown [id number] 2.16.8 [id number] 1962 Unknown [id number] 2.16.8 [id number] 1962 Unknown [id number] 2.16.8 [id number] 1962 Unknown [id number] 2.16.8 [id number] 1962 Unknown [id number] 2.16.8 [id number] Social History Date Type Detail Facility Start: 07-01-2018 End: 01-11-2023 Tobacco smoking status NHIS Former smoker [place], [place] Start: 07-01-2018 End: 01-11-2023 [facility] Start: 07-01-2018 End: 02-01-2023 Alcohol intake Current non-drinker of alcohol (finding) [place], [place] Start: 1960 Sex Assigned At Not on file [place] History of tobacco use Current smoker [facility] Start: 10-09-2022 History SDOH Alcohol Frequency 1 [facility] Start: 10-09-2022 History SDOH Alcohol Std Drinks 0 [facility] Clinical Note 05-28-2023 Note Date & [...] Substance Abuse, 05/28/20 (more content not included)... [facility] Comment on above: Result Comment: Elec [...] cannot be sent through Care Everywhere.Kidney Stone (Greek)documented in this encounter [facility] Evaluation note Note Date & Type Note Facility Evaluation note Diagnosis Right ureteral stone- Primary Calculus of ureter documented in this encounter [facility] Evaluation note Note Date & Type Note Facility Evaluation note Diagnosis Nocturia Frequency of urination Urinary frequency Urge incontinence documented in this encounter [facility] Advance Directives No Advanced Directives Records FoundDocuments on File Type Date Recorded 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 [facility]. provides no warranty or guarantee of the accuracy or completeness of information in this document.
--- NOTE | 2024-03-02 13:26 | P.CN_ITS ---
Consult Note: HPI Data of Consult Patient: new to practice Consult date: 03/02/24 Requesting Physician: Akira Vargas MD Primary Care Provider: Sebastien Padron MD Consult Narrative Reason for consult: low back pain Narrative: 63yof who presents for evaluation. longstanding low back pain history >20 years, now worsening. worse with standing and ambulation. imaging reviewed, which shows facet arthropathy throughout lower lumbar spine. has engaged in physical therapy and continues in >6 weeks of provider directed home exercise program, without lasting benefit. has tried various pain meds, without significant benefit. tried muscle relaxers without benefit. denies adverse med side effects. cc:: CC: Akira Vargas MD Review of Systems ROS Status of ROS 10 or more systems reviewed and unremark able except as noted in history and below Meds Home Medications and Allergies Home Medications ?Medication ?Instructions ?Recorded ?Confirmed ?Type albuterol sulfate 90 mcg/actuation 2 inh inhalation Q6H PRN shortness 03/02/24 03/02/24 History breath activated powder inhaler of breath or wheezing aspirin 81 mg capsule 81 mg PO DAILY 03/02/24 03/02/24 History cholecalciferol (vitamin D3) 50 50 mcg PO DAILY 03/02/24 03/02/24 History mcg (2,000 unit) capsule hydroxychloroquine 200 mg tablet 200 mg PO DAILY 03/02/24 03/02/24 History levothyroxine 150 mcg capsule 150 mcg PO DAILY 03/02/24 03/02/24 History liothyronine 5 mcg tablet 15 mcg PO DAILY 03/02/24 03/02/24 History Allergies Allergy/AdvReac Type Severity Reaction Status Date / Time bees Allergy Unknown Unknown Uncoded 03/02/24 13:12 Exam Narrative Exam Narrative: Psych-alert and oriented x 3. Attentive and appropriate, constitutionally normal, displays normal mood and affect per situation.? There are no obvious deficits in memory, reasoning, or intellect.? Skin-no obvious rashes, bruising, erythema noted to the patient's area of pain. Extremities- extremities are warm with minimal edema and palpable pulses. Lumbar-no significant tenderness to palpation noted in the lumbar spine and paraspinal musculature.? Pain is elicited with extension, and lateral rotation of the lumbar spine. Range of motion is slightly diminished with these motions due to pain. Facet loading maneuvers are positive bilaterally and do appear to be concordant with the patient's normal complaints of pain.? Coordination remains intact.? Gait remains non-antalgic. Assessment and Plan Assessment and Plan (1) Lumbar spondylosis: Plan 63yof who presents for evaluation. failed conservative measures, as noted. imaging reviewed, as noted. given symptoms and imaging findings, prudent to attempt diagnostic bilateral l4-5, l5-s1 medial branch block under fluoroscopic guidance with intention of proceeding to radiofrequency ablation. she is in agreement. meds reviewed, no changes. follow up after procedure.
== END 2024-03-02 12:33 | disposition home or self-care (01) ==
LOC: PM 12:32
PROVIDERS: PCP Family Medicine; Visit Provider Anesthesiology
DX: M47.816 Spondylosis without myelopathy or radiculopathy, lumbar region (principal)
CPT/HCPCS: G0463

== ENCOUNTER 2024-03-23 10:02 | Day surgery (SDC) | payer MEDICARE, SELFPAY ==
[2024-03-23 11:16] VITALS: BP 167/75; PULSE 83; TEMP 36.7; O2SAT 100
[2024-03-23 11:36] VITALS: BP 173/79; BP 180/77; PULSE 59; O2SAT 95
--- NOTE | 2024-03-23 11:38 | W.PM.PROCNOT ---
Date of procedure: 03/23/24 Pre-op diagnosis: Pain due to lumbar spondylosis without myelopathy Post-op diagnosis: same as pre-op Procedure: Procedure: Bilateral L4-5, L5-S1 medial branch block Medications: Bupivacaine 0.25% 6cc The patient was seen and examined in the preoperative holding area.? An informed consent was obtained and placed on the chart.? The patient was brought to the medical procedure unit and placed in the prone position.? A timeout was completed verifying correct patient, procedure site, positioning, plan, and special equipment.? Using aseptic technique, the needle was placed at left L4. Under direct fluoroscopic visualization a Quincke-tipped spinal needle was advanced to the junction of the superior articulating process with the transverse process at the designated medial branch segment.? Preceded by negative aspiration, the above-mentioned injectate was placed in 1 mL aliquots.? The procedure was repeated at left L5, S1.? The needle was removed and insertion site was covered. The same procedure, at the same levels, was completed on the right side. The patient was taken to the postprocedural recovery area and monitored for an appropriate length of time before found suitable for discharge in the company of a responsible adult. Anesthesia: Local Surgeon: Akira Vargas Pathology: none sent Condition: stable Disposition: no change
[2024-03-23] MEDS: LIDOCAINE HCL 2% 400 MG/20 ML MDV INJ (11:39)
[2024-03-23] MEDS: BUPIVACAINE HCL 0.25% PF 25 MG/10 ML VIAL 8 ML INJ (11:39)
== END 2024-03-23 11:42 | disposition home or self-care (01) ==
LOC: SURGOUT 10:03
PROVIDERS: PCP Family Medicine; Visit Provider Anesthesiology
DX: M47.816 Spondylosis without myelopathy or radiculopathy, lumbar region (principal); E03.9 Hypothyroidism, unspecified
CPT/HCPCS: 36415; 64493; 64494; 84436; 84443; 84481; J0665

== ENCOUNTER 2024-03-23 10:05 | Outpatient (OUT) | payer MEDICARE, SELFPAY ==
[2024-03-23 12:02] LABS: Thyroid Stimulating Hormone 2.047 uIU/mL (0.358-3.740)
== END 2024-03-23 10:06 | disposition home or self-care (01) ==
LOC: LAB 10:06
PROVIDERS: PCP Family Medicine; Visit Provider Family Medicine
DX: E03.9 Hypothyroidism, unspecified (principal)
CPT/HCPCS: 36415; 84436; 84443; 84481

== ENCOUNTER 2024-03-25 11:28 | Outpatient (OUT) | payer MEDICARE, SELFPAY ==
--- OUTSIDE RECORDS SUMMARY | 2024-03-25 11:37 | XMS_ITS | CCD ---
Author Organization [facility] [employer] Care Team Providers Care Fast Food Supervisor Name Role Phone Bulmaro Padron Primary Care Provider DR BULMARO PADRON Admitting Unavailable KARMAY, DR CHAMBERLAIN Attending Unavailable HOY, DR CHAMBERLAIN [...] Unavailable KARMAY, DR CHAMBERLAIN Primary Care Unavailable CLARA, DR CHAMBERLAIN Consulting Unavailable Bulmaro Padron MD Primary Care Provider [phone] GABBIE VALENTINE Referring Unavailable BULMARO PADRON Primary Care Unavailable JORDYN EATON Attending Unavailable BULMARO PADRON Primary Care Unavailable BULMARO PADRON Primary Care Unavailable ARMIDA AGEE Referring Unavailable BULMARO PADRON Primary Care Unavailable Aayush MENDOZA Attending Unavailable Bulmaro Padron Referring Unavailable Akira Vargas MD Attending Unavailable Allergies Allergy Classification Reported Allergen(s) Allergy Type Date of Onset Reaction(s) Facility (1 source) Bee/Wasp/Ant venom; Translations: [Bee Stings] Propensity to adverse reactions (disorder) [facility] Repository (1 source) No Known Medication Allergies; Translations: [No Known Medication Allergies] Propensity to adverse reactions (disorder) [facility] Repository Medications Current Medications Medication Drug Class(es) [...] Translations: [CHRONIC DIASTOLIC HEART FAILURE] Onset: 03-08-20 22 Chronic Disorders of lipid metabolism (1 source) [...] source) Hydroureteronephrosis ; Translations: [Unspecified hydronephrosis] Onset: 01-12-20 23 01-11-2023 Episodic Other screening for suspected conditions (not [...] Visit Summaryon 1 07-28-2022 Ambulatory Visit Summary YAS KURTZ :1960 Visit Date:05/28/2023 Ambulatory Visit Instructions [...] you for choosing us for your care. Normal [facility] RAD - CT Reporton 05-23-2023 RAD - CT Report [id number] 0TIFF Normal [facility] Patient Letter FTMCon 2022 Patient Letter [facility] May 16, 2023 YAS KURTZ [address] [place] [address] : 1960 Dear Ms. Kurtz, Thank you for choosing [facility] for your healthcare needs. Your consultation appointment with Dr Aayush Mendoza is scheduled for 05/28/23 at 10am. We are located in the [place] [address] building, 2nd floor, [address]. A map is enclosed. Please bring your insurance card, a photo ID, and any co-pay you are responsible for to this first appointment. If you have any questions, please call us at [phone]. We look forward to seeing you soon. Sincerely, [place] [address], [address] [place] [address]. [place] [address] Normal [facility] Consultation Noteon 05-01-20 23 Consultation Note [id number] 0TIFF Normal [facility] Physician Referralon 023 Physician Referral [id number] 0TIFF Normal [facility] Cult,Urineon 04-03-2023 Cult,Urine Specimen Description .CLEAN CATCH URINE Culture NO SIGNIFICANT GROWTH Report Status FINAL 04/03/2023 [facility] Comment on above: Performed By: #### B C #### [address] [place] [address] Produce Field Merchandiser: Stu Baires MD Trichomonas/Wet Prepon 04-02 Trichomonas/Wet Prep Specimen Description .VAGINA Direct Exam NO YEAST OBSERVED NO TRICHOMONAS SEEN NO CLUE CELLS SEEN Report Status FINAL 04/02/2023 [facility] Comment on above: Performed By: #### W P #### [facility] [address] [place] [address] Produce Field Merchandiser: Stu Baires MD Cult,Urineon 02-03-2023 Cult,Urine Specimen Description .CLEAN CATCH URINE Culture NO SIGNIFICANT GROWTH Report Status FINAL 02/02/2023 Normal [facility] Comment on above: Performed By: #### U RC #### [facility] [address] [place] [address] Produce Field Merchandiser: Victor Manuel Be MD [facility] [address] [place] [address] Produce Field Merchandiser: Stu Baires MD Culture, Urineon 02-02-2023 Microorganism identified Cx Nom (Unsp spec) NO SIGNIFICANT GROWTH [facility] Specimen Description .CLEAN CATCH URINE [facility] CT ABDOMEN PELVIS WO CONTRAS Ton 02-01-2023 [...] Ar Graves MD 02/01/23 Final result Normal [facility] CBC with Auto Differentialon 01-10-2023 Basophils (Bld) [#/Vol] 0.03 10*3/uL [facility] Basophils/100 WBC (Bld) 0 % 0 - 2 % [facility] Eosinophils (Bld) [#/Vol] 0.03 10*3/uL [facility] Eosinophils/100 WBC (Bld) 0 % Low 1 - 4 % [facility] Erythrocyte distribution width (RBC) [Ratio] 12.6 % 11.8 - 14.4 % [facility] Hematocrit (Bld) [Volume fraction] 43.5 % 36.3 - 47.1 % [facility] Hemoglobin (Bld) [Mass/Vol] 14.4 g/dL 11.9 - 15.1 g/dL [facility] Immature granulocytes (Bld) [#/Vol] [facility] Immature granulocytes/100 WBC (Bld) 0 % 0 [facility] Interpretation and review of laboratory results Abnormal [facility] Lymphocytes/100 WBC (Bld) 11 % Low 24 - 43 % [facility] Lymphocytes/100 WBC (Bld) 0.90 % Low [facility] MCH (RBC) [Entitic mass] 31.5 pg 25.2 - 33.5 pg [facility] MCHC (RBC) [Mass/Vol] 33.1 g/dL 28.4 - 34.8 g/dL [facility] MCV (RBC) [Entitic vol] 95.2 fL 82.6 - 102.9 fL [facility] Monocytes/100 WBC (Bld) 5 % 3 - 12 % [facility] Monocytes/100 WBC (Bld) 0.44 % [facility] Neutrophils/100 WBC (Bld) 84 % High 36 - 65 % [facility] Nucleated RBC/100 WBC (Bld) [Ratio] 0.0 % 0.0 per 100 WBC [facility] Platelet mean volume (Bld) [Entitic vol] 10.8 fL 8.1 - 13.5 fL [facility] Platelets (Bld) [#/Vol] 210 10*3/uL [facility] RBC (Bld) [#/Vol] 4.57 10*6/uL 3.95 - 5.1 1 m/uL [facility] Segmented neutrophils/100 WBC (Bld) 7.13 % [facility] WBC other (Bld) [#/Vol] 8.6 [facility] CBC with Diffon 01-10-2023 Abs. Basophil 0.03 k/uL Normal 0.00-0.20 [facility] Comment on above: Performed By: #### C DP, CP #### [address] [place], [place] [id number] Produce Field Merchandiser: Stu Baires MD Abs.Imm.Granulocyte <0.03 Normal 0.00-0.30 [facility] Comment on above: Performed By: #### C DP, CP #### [address] [place] [address] Produce Field Merchandiser: Stu Baires MD Abs.Neutrophil (Seg) 7.13 k/uL Normal 1.50-8.10 [facility] Comment on above: Performed By: #### C DP, CP #### [address] [place] [address] Produce Field Merchandiser: Stu Baires MD Basophils/100 WBC (Bld) 0 % Normal 0-2 [facility] Comment on above: Performed By: #### C DP, CP #### [address] [place] [address] Produce Field Merchandiser: Stu Baires MD Eosinophils (Bld) [#/Vol] 0.03 10*3/uL Normal 0.00-0.44 [facility] Comment on above: Performed By: #### C DP, CP #### [address] [place], [place] [id number] Produce Field Merchandiser: Stu Baires MD Eosinophils/100 WBC (Bld) 0 % Low 1-4 [facility] Comment on above: Performed By: #### C DP, CP #### [facility] [address] [place], [place] [id number] Produ[employer] Field Merchandiser: Stu Baires MD Erythrocyte distribution width (RBC) [Ratio] 12.6 % Normal 11.8-14.4 [facility] Comment on above: Performed By: #### C DP, CP #### [address] [place], [facility] Produ[employer] Field Merchandiser: Stu Baires MD Hematocrit (Bld) [Volume fraction] 43.5 % Normal 36.3-47.1 [facility] Comment on above: Performed By: #### C DP, CP #### [address] [place], [facility] Produce Field Merchandiser: Stu Baires MD Hemoglobin (Bld) [Mass/Vol] 14.4 g/dL Normal 11.9-15.1 [facility] Comment on above: Performed By: #### C DP, CP #### [address] [place], [facility] Produce Field Merchandiser: Stu Baires MD Immature granulocytes/100 WBC (Bld) 0 % Normal 0 [facility] Comment on above: Performed By: #### C DP, CP #### [address] [place], [facility] Produce Field Merchandiser: Stu Baires MD Lymphocytes (Bld) [#/Vol] 0.90 10*3/uL Low 1.10-3.70 [facility] Comment on above: Performed By: #### C DP, CP #### [address] [place], [facility] Produce Field Merchandiser: Stu Baires MD Lymphocytes/100 WBC (Bld) 11 % Low 24-43 [facility] Comment on above: Performed By: #### C DP, CP #### [address] [place], [facility] Produce Field Merchandiser: Stu Baires MD MCH (RBC) [Entitic mass] 31.5 pg Normal 25.2-33.5 [facility] Comment on above: Performed By: #### C DP, CP #### [facility] [address] [place] [address] Dr. [place], [place] [id number] Produce Field Merchandiser: Stu Baires MD MCHC (RBC) [Mass/Vol] 33.1 g/dL Normal 28.4-34.8 [facility] Comment on above: Performed By: #### C DP, CP #### [address] [place] [address] Produce Field Merchandiser: Stu Baires MD MCV (RBC) [Entitic vol] 95.2 fL Normal 82.6-102.9 [facility] Comment on above: Performed By: #### C DP, CP #### [address] [place], [place] [id number] Produce Field Merchandiser: Stu Baires MD Monocytes (Bld) [#/Vol] 0.44 10*3/uL Normal 0.10-1.20 [facility] Comment on above: Performed By: #### C DP, CP #### [address] [place], [place] [address]83 Produce Field Merchandiser: Stu Baires MD Monocytes/100 WBC (Bld) 5 % Normal 3-12 [facility] Comment on above: Performed By: #### C DP, CP #### [facility] [address] [place] [address] Dr. [place], [place] [id number] Produce Field Merchandiser: Stu Baires MD Neutrophil (Seg) 84 % High 36-[address] [facility] Comment on above: Performed By: #### C DP, CP #### [facility] [address] [place] [address] Dr[place], [place] [id number] Produce Field Merchandiser: Stu Baires MD NRBC Automated 0.0 per 100 WBC Normal 0.0 [facility] Comment on above: Performed By: #### C DP, CP #### [facility] [address] [place], [place] [address]38[address] Produce Field Merchandiser: Stu Baires MD Platelet mean volume (Bld) [Entitic vol] 10.8 fL Normal 8.1-13.5 [facility] Comment on above: Performed By: #### C DP, CP #### [facility] [address] [place], [facility] Produce Field Merchandiser: Stu Baires MD Platelets (Bld) [#/Vol] 210 10*3/uL Normal 138-453 [facility] Comment on above: Performed By: #### C DP, CP #### [facility] [address] [place] [address] Produce Field Merchandiser: Stu Baires MD RBC (Bld) [#/Vol] 4.57 10*6/uL Normal 3.95-5.11 [facility] Comment on above: Performed By: #### C DP, CP #### [facility] [address] [place], [facility]83 Produce Field Merchandiser: Stu Baires MD WBC (Bld) [#/Vol] 8.6 10*3/uL Normal 3.5-11.3 [facility] Comment on above: Performed By: #### C DP, CP #### [facility] [address] [place], [facility] Produce Field Merchandiser: Stu Baires [facility] Albumin [Mass/Vol] 4.3 g/dL 3.5 - [...] ratio] 25 mg/mg High 9 - [address] [facility] [address] ABDOMEN PELVIS WO CONTRAS Ton 01-10-2023 [...] Enrico Armstrong MD 01/10/23 Final result Normal [facility] CT ABDOMEN PELVIS WO CONTRAS T Additional Contrast? Noneon 01-10-2023 1. 2 mm stone at the right ureterovesical junction with mild hydroureteronephrosis. 2. 1.6 cm left adrenal nodule unchanged from 2018 compatible with a benign adenoma. No follow-up recommended. [facility] EXAMINATION: CT OF THE ABDOMEN AND [...] No acute osseous or soft tissue abnormality. [facility] Enrico Armstrong MD - 01/10/2023 EXAMINATION: CT OF THE [...] 2022 Albumin [Mass/Vol] 4.3 g/dL Normal 3.5-5.2 [facility] Comment on above: Performed By: #### B C #### [facility] [address] [place] [address] [place] [address] Produce Field Merchandiser: Stu Baires MD Albumin/Glob Ratio 1.4 Normal 1.0-2.5 [facility] Comment on above: Performed By: #### B C #### [facility] [address] [place], [place] [id number] Produce Field Merchandiser: Stu Baires MD Alkaline Phos 97 U/L Normal 35-104 [facility] Comment on above: Performed By: #### B C #### [facility] [address] [place], [place] [address]83 Produ[employer] Field Merchandiser: Stu Baires MD ALT [Catalytic activity/Vol] 29 U/L Normal 5-33 [facility] Comment on above: Performed By: #### B C #### [facility] [address] [place], [place] [address] Produ[employer] Field Merchandiser: Stu Baires MD Anion gap [Moles/Vol] 8 mmol/L Low 9-17 [facility] Comment on above: Performed By: #### B C #### [facility] [address] [place], [place] [id number] Produce Field Merchandiser: Stu Baires MD AST [Catalytic activity/Vol] 25 U/L Normal <32 [facility] Comment on above: Performed By: #### B C #### [facility] [address] [place], [place] [address] Produ[employer] Field Merchandiser: Stu Baires MD Bilirubin [Mass/Vol] 0.3 mg/dL Normal 0.3-1.2 [facility] Comment on above: Performed By: #### B C #### [facility] [address] [place], [place] [id number] Produce Field Merchandiser: Stu Baires MD BUN/CRE Ratio 25 High 9-20 [facility] Comment on above: Performed By: #### B C #### [facility] [address] [place], [place] [address] Produ[employer] Field Merchandiser: Stu Baires MD Calcium [Mass/Vol] 9.3 mg/dL Normal 8.6-10.4 [facility] Comment on above: Performed By: #### B C #### [facility] [address] [place] [id number] Produ[employer] Merchandiser: Stu Baires MD Chloride [Moles/Vol] 105 mmol/L Normal 98-107 [facility] Comment on above: Performed By: #### B C #### [facility] [address] [place] [address] Produce Field Merchandiser: Stu Baires MD CO2 [Moles/Vol] 25 mmol/L Normal 20-31 [facility] Comment on above: Performed By: #### B C #### [facility] [address] [place] [id number] Produce Field Merchandiser: Stu Baires MD Creatinine [Mass/Vol] 0.51 mg/dL Normal 0.50-0.90 [facility] Comment on above: Performed By: #### B C #### [facility] [address] [place] [address] Produce Field Merchandiser: Stu Baires MD GFR/1.73 sq M.predicted among non-blacks MDRD (S/P/Bld) [Vol rate/Area] mL/min/{1.73_m2} Normal >60 [facility] Comment on above: Result Comment: These [...] secretion. Performed By: #### B C #### [facility] [address] [place] [address] Produce Field Merchandiser: Stu Baires MD Glucose [Mass/Vol] 140 mg/dL High 70-99 [facility] Comment on above: Performed By: #### B C #### [facility] [address] [place] [address] Produce Field Merchandiser: Stu Baires MD Potassium [Moles/Vol] 4.3 mmol/L Normal 3.7-5.3 [facility] Comment on above: Performed By: #### B C #### [facility] [address] [place], [place] [address] Produ[employer] Field Merchandiser: Stu Baires MD Protein [Mass/Vol] 7.4 g/dL Normal 6.4-8.3 [facility] Comment on above: Performed By: #### B C #### [facility] [address] [place] [address] Produce Field Merchandiser: Stu Baires MD Sodium [Moles/Vol] 138 mmol/L Normal 135-144 [facility] Comment on above: Performed By: #### B C #### [facility] [address] [place] [address] Produce Field Merchandiser: Stu Baires MD Urea nitrogen [Mass/Vol] 13 mg/dL Normal 8-23 [facility] Comment on above: Performed By: #### B C #### [facility] [address] [place] [address] Produce Field Merchandiser: Stu Baires MD Microscopic Urinalysison Bacteria LM Ql (Urine sed) TRACE Abnormal None [facility] Epithelial cells LM.HPF (Urine sed) [#/Area] 0 TO 2 [facility] Interpretation and review of laboratory results Abnormal [facility] RBC LM.HPF (Urine sed) [#/Area] 0 TO 2 [facility] WBC LM.HPF (Urine sed) [#/Area] 10 TO 20 [facility] Urinalysison 01-10-2023 Bilirubin Ql (U) Negative NEGATIVE [facility] Clarity (U) Clear Clear [facility] Color (U) Yellow Yellow [facility] Glucose Test strip (U) [Mass/Vol] Negative NEGATIVE [facility] Hemoglobin Auto test strip Ql (U) Negative NEGATIVE [facility] Interpretation and review of laboratory results Abnormal [facility] Ketones (U) [Mass/Vol] Negative NEGATIVE [facility] Leukocyte esterase Test strip Ql (U) SMALL Abnormal NEGATIVE [facility] Nitrite Ql (U) Negative NEGATIVE [facility] pH (U) 5.5 [pH] 5.0 - 9.0 [facility] Protein (U) [Mass/Vol] Negative NEGATIVE [facility] Specific gravity (U) [Rel density] High 1.010 - 1.020 [facility] Urobilinogen Qn (U) Normal Normal [facility] Urinalysis, Routineon 2022 Bilirubin, SemiQt,Ur Negative Normal NEG [facility] Comment on above: Performed By: #### B C #### [facility] [address] [place] [address] Produ[employer] Merchandiser: Stu Baires MD Blood, Urine Negative Normal NEG [facility] Comment on above: Performed By: #### B C #### [facility] [address] [place] [address] [place] [address] Produ[employer] Field Merchandiser: Stu Baires MD Clarity (U) Clear Normal CLEAR [facility] Comment on above: Performed By: #### B C #### [facility] [address] [place] [address] Produce Field Merchandiser: Stu Baires MD Color (U) Yellow Normal YEL [facility] Comment on above: Performed By: #### B C #### [facility] [address] [place] [address] [place] [address] Produce Field Merchandiser: Stu Baires MD Glucose Ql (U) Negative Normal NEG [facility] Comment on above: Performed By: #### B C #### [facility] [address] [place], [place] [address] Produce Field Merchandiser: Stu Baires MD Ketones Ql (U) Negative Normal NEG [facility] Comment on above: Performed By: #### B C #### [facility] [address] [place], [place] [phone] Produce Field Merchandiser: Stu Baires MD Leukocyte esterase Test strip Ql (U) SMALL Abnormal NEG [facility] Comment on above: Performed By: #### B C #### [facility] [address] [place], [place] [id number] Produ[employer] Merchandiser: Stu Baires MD Nitrite,Ur Negative Normal NEG [facility] Comment on above: Performed By: #### B C #### [facility] [address] [place] [address] Dr. [place], [place] [id number] Produ[employer] Merchandiser: Stu Baires MD PH,Ur 5.5 Normal 5.0-9.0 [facility] Comment on above: Performed By: #### B C #### [facility] [address] [place] [address] Dr[place], [place] [id number] Produ[employer] Merchandiser: Stu Baires MD Protein Ql (U) Negative Normal NEG [facility] Comment on above: Performed By: #### B C #### [facility] [address] [place] [address] [place], [place] [id number] Produ[employer] Merchandiser: Stu Baires MD Spec. [place],Ur >1.030 High 1.010-1.020 [facility] Comment on above: Performed By: #### B C #### [facility] [address] [place] [address] Produce Field Merchandiser: Stu Baires MD Urobilinogen,Ur Normal Normal NORM [facility] Comment on above: Performed By: #### B C #### [facility] [address] [place] [address] Produ[employer] Field Merchandiser: Stu Baires MD Urinalysis,Microon 3 Bacteria TRACE Abnormal NONE [facility] Comment on above: Performed By: #### B C #### [facility] [address] [place] [address] Dr[place], [place] [id number] Produ[employer] Merchandiser: Stu Baires MD Epithelial cells LM Ql (Urine sed) 0 TO 2 Normal 0-25 [facility] Comment on above: Performed By: #### B C #### [facility] [address] [place] [id number] [employer] Merchandiser: Stu Baires MD Urine RBC's 0 TO 2 Normal 0-2 [facility] Comment on above: Performed By: #### B C #### [address] [place], [place] [id number] Produ[employer] Field Merchandiser: Stu Baires MD Urine WBC's 10 TO 20 Normal 0-5 [facility] Comment on above: Performed By: #### B C #### [facility] [address] [place] [address] Dr[place], [place] [id number] Produ[employer] Field Merchandiser: Stu Baries MD Cult, Bloodon 10-14-2022 Cult, Blood Specimen Description .BLOOD Special Requests 10ML LHAND Culture NO GROWTH 5 DAYS Report Status FINAL 10/14/2022 Normal [facility] Comment on above: Performed By: #### B C #### [facility] [address] [place] [address] Dr[place], [place] [id number] Produ[employer] Field Merchandiser: Stu Baires MD Cult,Bloodon 10-14-2022 Cult,Blood Specimen Description .BLOOD Special Requests 14ml rfa Culture NO GROWTH 5 DAYS Report Status FINAL 10/14/2022 [facility] Comment on above: Performed By: #### B C #### [facility] [address] [place] [address] [place] [address] Produ[employer] Field Merchandiser: Stu Baires MD CBC with Diffon 10-09-2022 Abs. Basophil 0.03 k/uL Normal 0.00-0.20 [facility] Comment on above: Performed By: #### C P, CDP #### [address] [place], [place] [id number] Produ[employer] Merchandiser: Stu Baires MD Abs.Imm.Granulocyte <0.03 Normal 0.00-0.30 [facility] Comment on above: Performed By: #### C P, CDP #### [address] [place], [place] [address] Produ[employer] Field Merchandiser: Stu Baires MD Abs.Neutrophil (Seg) 2.53 k/uL Normal 1.50-8.10 [facility] Comment on above: Performed By: #### C P, CDP #### [address] [place] [address] Produce Field Merchandiser: Stu Baires MD Basophils/100 WBC (Bld) 1 % Normal 0-2 [facility] Comment on above: Performed By: #### C P, CDP #### [address] [place], [place] [address] Produ[employer] Field Merchandiser: Stu Baires MD Eosinophils (Bld) [#/Vol] 0.06 10*3/uL Normal 0.00-0.44 [facility] Comment on above: Performed By: #### C P, CDP #### [address] [place], [place] [address] Produ[employer] Field Merchandiser: Stu Baires MD Eosinophils/100 WBC (Bld) 2 % Normal 1-4 [facility] Comment on above: Performed By: #### C P, CDP #### [address] [place], [facility] [employer] Field Merchandiser: Stu Baires MD Erythrocyte distribution width (RBC) [Ratio] 13.0 % Normal 11.8-14.4 [facility] Comment on above: Performed By: #### C P, CDP #### [facility] [address] [place] [address] Dr. [place], [place] [id number] [employer] Merchandiser: Stu Baires MD Hematocrit (Bld) [Volume fraction] 38.9 % Normal 36.3-47.1 [facility] Comment on above: Performed By: #### C P, CDP #### [address] [place], [facility] [employer] Merchandiser: Stu Baires MD Hemoglobin (Bld) [Mass/Vol] 13.2 g/dL Normal 11.9-15.1 [facility] Comment on above: Performed By: #### C P, CDP #### [address] Mcc[place], [facility] [employer] Merchandiser: Stu Baires MD Immature granulocytes/100 WBC (Bld) 1 % High 0 [facility] Comment on above: Performed By: #### C P, CDP #### [address] [place]cc[place], [facility] [employer] Merchandiser: Stu Baires MD Lymphocytes (Bld) [#/Vol] 0.71 10*3/uL Low 1.10-3.70 [facility] Comment on above: Performed By: #### C P, CDP #### [address] [place], [facility] [employer] Merchandiser: Stu Baires MD Lymphocytes/100 WBC (Bld) 18 % Low 24-43 [facility] Comment on above: Performed By: #### C P, CDP #### [address] [place], [facility] [employer] Merchandiser: Stu Baires MD MCH (RBC) [Entitic mass] 32.0 pg Normal 25.2-33.5 [facility] Comment on above: Performed By: #### C P, CDP #### [address] [place], [facility] [employer] Merchandiser: Stu Baires MD MCHC (RBC) [Mass/Vol] 33.9 g/dL Normal 28.4-34.8 [facility] Comment on above: Performed By: #### C P, CDP #### [address] [place], [place] [id number] [employer] Merchandiser: Stu Baires MD MCV (RBC) [Entitic vol] 94.2 fL Normal 82.6-102.9 [facility] Comment on above: Performed By: #### C P, CDP #### [address] [place], [place] [id number] [employer] Merchandiser: Stu Baires MD Monocytes (Bld) [#/Vol] 0.56 10*3/uL Normal 0.10-1.20 [facility] Comment on above: Performed By: #### C P, CDP #### [address] [place], [place] [id number] [employer] Merchandiser: Stu Baires MD Monocytes/100 WBC (Bld) 14 % High 3-12 [facility] Comment on above: Performed By: #### C P, CDP #### [address] [place], [place] [id number] [employer] Merchandiser: Stu Baires MD Neutrophil (Seg) 64 % Normal 36-[address] [facility] Comment on above: Performed By: #### C P, CDP #### [address] [place], [place] [id number] [employer] Merchandiser: Stu Baires MD NRBC Automated 0.0 per 100 WBC Normal 0.0 [facility] Comment on above: Performed By: #### C P, CDP #### [address] [place] [address] [employer] Merchandiser: Stu Baires MD Platelet mean volume (Bld) [Entitic vol] 11.1 fL Normal 8.1-13.5 [facility] Comment on above: Performed By: #### C P, CDP #### [facility] [address] [place] [address] [employer] Merchandiser: Stu Baires MD Platelets (Bld) [#/Vol] 221 10*3/uL Normal 138-453 [facility] Comment on above: Performed By: #### C P, CDP #### [facility] [address] [place] [address] [employer] Merchandiser: Stu Baires MD RBC (Bld) [#/Vol] 4.13 10*6/uL Normal 3.95-5.11 [facility] Comment on above: Performed By: #### C P, CDP #### [address] [place] [address] [employer] Merchandiser: Stu Baires MD WBC (Bld) [#/Vol] 3.9 10*3/uL Normal 3.5-11.3 [facility] Comment on above: Performed By: #### C P, CDP #### [address] [place], [place] [id number] [employer] Merchandiser: Stu Baires MD Comp Metabolic Profon 2022 Albumin [Mass/Vol] 3.4 g/dL Low 3.5-5.2 [facility] Comment on above: Performed By: #### C P, CDP #### [facility] [address] [place], [place] [id number] [employer] Merchandiser: Stu Baires MD Albumin/Glob Ratio 1.2 Normal 1.0-2.5 [facility] Comment on above: Performed By: #### C P, CDP #### [facility] [address] [place] [address] [employer] Merchandiser: Stu Baires MD Alkaline Phos 108 U/L High 35-104 [facility] Comment on above: Performed By: #### C P, CDP #### [facility] [address] [place], [place] [id number] [employer] Merch[employer]iser: Stu Baires MD ALT [Catalytic activity/Vol] 30 U/L Normal 5-33 [facility] Comment on above: Performed By: #### C P, CDP #### [facility] [address] [place], [place] [id number] [employer] Merch[employer]iser: Stu Baires MD Anion gap [Moles/Vol] 8 mmol/L Low 9-17 [facility] Comment on above: Performed By: #### C P, CDP #### [facility] [address] [place], [place] [id number] [employer] Merchandiser: Stu Baires MD AST [Catalytic activity/Vol] 29 U/L Normal <32 [facility] Comment on above: Performed By: #### C P, CDP #### [facility] [address] [place], [place] 5909883 [employer] Merchandiser: Stu Baires MD Bilirubin [Mass/Vol] 0.5 mg/dL Normal 0.3-1.2 [facility] Comment on above: Performed By: #### C P, CDP #### [facility] [address] [place], [place] [id number] [employer] Merchandiser: Stu Baires MD BUN/CRE Ratio 18 Normal 9-20 [facility] Comment on above: Performed By: #### C P, CDP #### [facility] [address] [place], [place] 1557983 [employer] Merchandiser: Stu Baires MD Calcium [Mass/Vol] 8.4 mg/dL Low 8.6-10.4 [facility] Comment on above: Performed By: #### C P, CDP #### [facility] [address] [place], [place] 5096383 [employer] Merch[employer]iser: Stu Baires MD Chloride [Moles/Vol] 105 mmol/L Normal 98-107 [facility] Comment on above: Performed By: #### C P, CDP #### [facility] [address] [place] [address] Produ[employer] Merchandiser: Stu Baires MD CO2 [Moles/Vol] 23 mmol/L Normal 20-31 [facility] Comment on above: Performed By: #### C P, CDP #### [facility] [address] [place] [address] Produ[employer] Merchandiser: Stu Baires MD Creatinine [Mass/Vol] 0.49 mg/dL Low 0.50-0.90 [facility] Comment on above: Performed By: #### C P, CDP #### [facility] [address] [place] [address] [employer] Merchandiser: Stu Baires MD GFR/1.73 sq M.predicted among non-blacks MDRD (S/P/Bld) [Vol rate/Area] mL/min/{1.73_m2} Normal >60 [facility] Comment on above: Result Comment: These [...] Performed By: #### C P, CDP #### [facility] [address] [place] [address] [employer] Merchandiser: Stu Baires MD Glucose [Mass/Vol] 102 mg/dL High 70-99 [facility] Comment on above: Performed By: #### C P, CDP #### [facility] [address] [place] [address] [employer] Merch[employer]iser: Stu Baires MD Potassium [Moles/Vol] 3.6 mmol/L Low 3.7-5.3 [facility] Comment on above: Performed By: #### C P, CDP #### [facility] [address] [place], [place] [id number] [employer] Merchandiser: Stu Baires MD Protein [Mass/Vol] 6.2 g/dL Low 6.4-8.3 [facility] Comment on above: Performed By: #### C P, CDP #### [facility] [address] [place], [place] [id number] [employer] Merch[employer]iser: Stu Baires MD Sodium [Moles/Vol] 136 mmol/L Normal 135-144 [facility] Comment on above: Performed By: #### C P, CDP #### [address] [place], [place] [id number] [employer] Merchandiser: Stu Baires MD Urea nitrogen [Mass/Vol] 9 mg/dL Normal 6-20 [facility] Comment on above: Performed By: #### C P, CDP #### [address] [place], [place] [id number] [employer] Merchandiser: Stu Baires MD Lactic Acidon 0 Lactate [Moles/Vol] 1.0 mmol/L Normal 0.5-2.2 [facility] Comment on above: Performed By: #### L ACTIC #### [facility] [address] [place] [address] Dr. [place], [place] [id number] [employer]ch[employer]iser: Stu Baires MD Urinalysis, Routineon 2022 Bilirubin, SemiQt,Ur Negative Normal NEG [facility] Comment on above: Performed By: #### U MICAO, UA #### [address] [place] [address] [employer] Merchandiser: Stu Baires MD Blood, Urine Negative Normal NEG [facility] Comment on above: Performed By: #### U MICAO, UA #### [facility] [address] [place] [address] Dr. [place], [place] [id number] [employer] Merch[employer]iser: Stu Baires MD Clarity (U) Clear Normal CLEAR [facility] Comment on above: Performed By: #### U MICAO, UA #### [facility] [address] [place] [address] Dr. [place], [place] [phone] [employer] Merch[employer]iser: Stu Baires MD Color (U) Yellow Normal YEL [facility] Comment on above: Performed By: #### U MICAO, UA #### [facility] [address] [place] [address] Dr. [place], [place] [id number] [employer] Merchandiser: Stu Baires MD Glucose Ql (U) Negative Normal NEG [facility] Comment on above: Performed By: #### U MICAO, UA #### [facility] [address] [place] [address] Dr. [place], [place] [id number] [employer] Merchandiser: Stu Baires MD Ketones Ql (U) Negative Normal NEG [facility] Comment on above: Performed By: #### U MICAO, UA #### [facility] [address] [place] [address] Dr. [place], [place] [id number] [employer] Merch[employer]iser: Stu Baires MD Leukocyte esterase Test strip Ql (U) TRACE Abnormal NEG [facility] Comment on above: Performed By: #### U MICAO, UA #### [facility] [address] [place] [address] Dr. [place], [place] [id number] [employer] Merch[employer]iser: Stu Baires MD Nitrite,Ur Negative Normal NEG [facility] Comment on above: Performed By: #### U MICAO, UA #### [facility] [address] [place] [address] Dr. [place], [place] [id number] [employer] Merchandiser: Stu Baires MD PH,Ur 6.0 Normal 5.0-9.0 [facility] Comment on above: Performed By: #### U MICAO, UA #### [facility] [address] [place] [address] Dr. [place], [place] [id number] [employer] Merchandiser: Stu Baires MD Protein Ql (U) 1+ Abnormal NEG [facility] Comment on above: Performed By: #### U MICAO, UA #### [facility] [address] [place] [address] [employer] Merchandiser: Stu Baires MD Spec. [place],Ur >1.030 High 1.010-1.020 [facility] Comment on above: Performed By: #### U MICAO, UA #### [facility] [address] [place], [place] [id number] [employer] Merchandiser: Stu Baires MD Urobilinogen,Ur Normal Normal NORM [facility] Comment on above: Performed By: #### U MICAO, UA #### [facility] [address] [place] [address] Dr. [place], [place] [id number] [employer] Merchandiser: Stu Baires MD Urinalysis,Microon 3 Bacteria 2+ Abnormal NONE [facility] Comment on above: Performed By: #### U MICAO, UA #### [address] [place] [address] [employer] Merchandiser: Stu Baires MD Epithelial cells LM Ql (Urine sed) 2 TO 5 Normal 0-25 [facility] Comment on above: Performed By: #### U MICAO, UA #### [facility] [address] [place] [address] Dr. [place], [place] [id number] [employer] Merchandiser: Stu Baires MD Mucus Strands 1+ Abnormal NONE [facility] Comment on above: Performed By: #### U MICAO, UA #### [facility] [address] [place], [place] [id number] [employer] Merchandiser: Stu Baires MD Urine RBC's None Normal 0-2 [facility] Comment on above: Performed By: #### U MICAO, UA #### [facility] [address] [place] [address] [place] [address] [employer] Merchandiser: Stu Baires MD Urine WBC's 2 TO 5 Normal 0-5 [facility] Comment on above: Performed By: #### U TISHAO, UA #### [facility] [address] [place] [address] [employer] Merchandiser: Stu Baires MD FREE T3on 06-19-2022 FREE T3 4.07 pg/mlL Critically high 2.18-3.98 [facility] Comment on above: Performed By: #### T 4, FT3, TSH ####[facility] [id number] [place] [address]Dr. Vicenta Bryant T4on 06-19-2022 T4 [Mass/Vol] 7.70 ug/dL Normal 4.80-13.90 [facility] Comment on above: Performed By: #### T 4, FT3, TSH ####[facility] [id number] [place] [address]Dr. Yadav Bryant TSHon 06-19-2022 TSH 4.022 uIU/mL Critically high 0.358-3.740 [facility] Comment on above: Performed By: #### T 4, FT3, TSH ####[facility] [address] [place] [address]Dr. Vicenta Bryant FREE T3on 05-23-2022 FREE T3 3.87 pg/mlL Normal 2.18-3.98 [facility] Comment on above: Performed By: #### T SH, FT3, T4 #### [facility] [address] [address] [address] Vicenta Bryant T4on 05-23-2022 T4 [Mass/Vol] 7.00 ug/dL Normal 4.80-13.90 [facility] Comment on above: Performed By: #### T SH, FT3, T4 #### [facility] [address] [address] [address] Vicenta Bryant TSHon 05-23-2022 TSH 4.402 uIU/mL Critically high 0.358-3.740 [facility] Comment on above: Performed By: #### T SH, FT3, T4 #### [facility] [address] [place], [place] [address] Dr. Vicenta Bryant MG MAMM DX FLAQUITA 3D FU CADon 0 03-28-2022 MG MAMM DX FLAQUITA 3D FU CAD Patient: YAS KURTZ Exam Date: 03/28/2022 : 1960 Gender:F Ordering : DR BULMARO PADRON . Admission #: [id number] Family : Order #: [id number] CLICK HERE TO VIEW EXAM RADIOLOGY REPORT [...] lung cancer at age 57. LOCATION: [facility] BREAST COMPOSITION: Almost entirely fatty. FINDINGS: DIAGNOSTIC [...] M.D. on 03/28/2022 at 11:35 Normal [facility] OCC BLD IMMUNO SCREENon 03-15 OCCULT BLOOD Negative Normal NEGATIVE [facility] Comment on above: Performed By: #### O BSCRN #### [facility] [address] [place], [place] [address] Dr. Vicenta Bryant INSULINon 03-07-2022 Insulin 10.8 uIU/mL Normal 2.6-24.9 [facility] Comment on above: Performed By: #### I NSULIN #### [facility] [address] [place], [place] [address] Dr. Vicenta Bryant T4, T3U, FTI LABCORPon 03-07 Free Thyroxine Index 1.9 Normal 1.2-4.9 [facility] Comment on above: Performed By: #### T HYLC ####[facility] [address] [place], [place] [address]DhPablo Bryant T3 Uptake 25 % Normal 24-39 [facility] Comment on above: Performed By: #### T HYLC ####[facility] [address] [place], [place] [address]IgPablo Bryant T4 [Mass/Vol] 7.6 ug/dL Normal 4.5-12.0 [facility] Comment on above: Performed By: #### T HYLC ####[facility] [address] [place], [place] [address]GyDr. Vicenta Bryant VIT D 25-OH LABCORPon 2021 Vitamin D, 25-Hydroxy 24.3 ng/mL Critically low 30.0-100.0 [facility] Comment on above: Result Comment: Susi min D deficiency has been defined by the [place] of [employer] and an Endocrine Society practice guideline as a level of serum 25-OH vitamin D less than 20 ng/mL (1,2). The Endocrine Society went on to further define vitamin D insufficiency as a level between 21 and 29 ng/mL (2). 1. IOM ([place] of [employer]). 2010. Dietary reference intakes for calcium and D. [place]: The National Academies Press. 2. Dea MF, Angelika [place], Shawn SHEARER, et al. Evaluation, treatment, and prevention of vitamin D deficiency: an Endocrine Society clinical practice guideline. JCEM. 2010; 96(7):1911-30. Performed By: #### V ITADLC ####[facility] [address] [place], [place] [address]PePablo Bryant CBC AUTO DIFFon 03-06-2022 BASO # 0.0 103/ul Normal 0.0-0.1 [facility] Comment on above: Performed By: #### C BC #### [facility] [address] [place] [address] [address] Vicenta Bryant Basophils/100 WBC (Bld) 0.6 % Normal 0.2-2.0 [facility] Comment on above: Performed By: #### C BC #### [facility] [address] [place] [address] [address] Vicenta Bryant EO # 0.1 103/ul Normal 0.0-0.7 [facility] Comment on above: Performed By: #### C BC #### [facility] [address] [place] [address] Dr. Vicenta Bryant Eosinophils/100 WBC (Bld) 1.1 % Normal 0.9-7.0 [facility] Comment on above: Performed By: #### C BC #### [facility] [address] [place] [address] Dr. Vicenta Bryant Erythrocyte distribution width (RBC) [Ratio] 12.6 % Normal 11.0-15.0 [facility] Comment on above: Performed By: #### C BC #### [facility] [address] [place] [address] Dr. Vicenta Bryant Hematocrit (Bld) [Volume fraction] 41.1 % Normal 36.0-48.0 [facility] Comment on above: Performed By: #### C BC #### [facility] [address] [place] [address] Dr. Vicenta Bryant Hemoglobin (Bld) [Mass/Vol] 13.4 g/dL Normal 12.0-16.0 [facility] Comment on above: Performed By: #### C BC #### [facility] [address] [place] [address] Dr. Vicenta Bryant IG # 0.01 10e3/ul Normal 0.00-0.03 [facility] Comment on above: Performed By: #### C BC #### [facility] [address] [place] [address] Dr. Vicenta Bryant IG % 0.2 % Normal 0.0-0.5 [facility] Comment on above: Performed By: #### C BC #### [facility] [address] [place] [address] Dr. Vicenta Bryant LYMPH # 1.6 103/ul Normal 1.2-3.8 [facility] Comment on above: Performed By: #### C BC #### [facility] [address] [place] [address] Dr. Vicenta Bryant Lymphocytes/100 WBC (Bld) 25.6 % Normal 20.5-60.0 [facility] Comment on above: Performed By: #### C BC #### [facility] [address] [place] [address] Dr. Vicenta Bryant MANUAL DIFF REQ NO Normal [facility] Comment on above: Performed By: #### C BC #### [facility] [address] [place] [address] Dr. Vicenta Bryant MCH (RBC) [Entitic mass] 31.0 pg Normal 26.7-34.0 [facility] Comment on above: Performed By: #### C BC #### [facility] [address] [place] [address] Dr. Vicenta Bryant MCHC (RBC) [Mass/Vol] 32.6 g/dL Normal 29.9-35.2 [facility] Comment on above: Performed By: #### C BC #### [facility] [address] [place] [address] Dr. Vicenta Bryant MCV (RBC) [Entitic vol] 95.1 fL Normal 81.0-99.0 [facility] Comment on above: Performed By: #### C BC #### [facility] [address] [place] [address] Dr. Vicenta Bryant MONO # 0.5 103/ul Normal 0.3-0.8 [facility] Comment on above: Performed By: #### C BC #### [facility] [address] [place] [address] Dr. Vicenta Bryant Monocytes/100 WBC (Bld) 7.8 % Normal 1.7-12.0 [facility] Comment on above: Performed By: #### C BC #### [facility] [address] [place] [address] [address] Vicenta Bryant NEUT # 4.0 103/ul Normal 1.4-6.5 [facility] Comment on above: Performed By: #### C BC #### [facility] [address] [place] [address] [address] Vicenta Bryant Neutrophils/100 WBC (Bld) 64.7 % Normal 43.0-75.0 [facility] Comment on above: Performed By: #### C BC #### [facility] [address] [place] [address] Dr. Vicenta Bryant Platelet mean volume (Bld) [Entitic vol] 10.8 fL Normal 9.5-13.5 [facility] Comment on above: Performed By: #### C BC #### [facility] [address] [place] [address] Dr. Vicenta Bryant PLT 210 103/ul Normal 150-450 [facility] Comment on above: Performed By: #### C BC #### [facility] [address] [place] [address] Dr. Vicenta Bryant RBC 4.32 106/ul Normal 4.20-5.40 [facility] Comment on above: Performed By: #### C BC #### [facility] [address] [place] [address] Dr. Vicenta Bryant WBC 6.2 103/ul Normal 4.0-11.0 [facility] Comment on above: Performed By: #### C BC #### [facility] [address] [place] [address] Dr. Vicenta Bryant GLYCOHEMOGLOBIN A1Con 2021 ADA RECOMMENDATION SEE BELOW Normal [facility] Comment on above: Result Comment: ADA RECOMMENDED LIMIT 4.0 - 6.0 ADA THERAPEUTIC TARGET < 7.0 ACTION SUGGESTED > 7.0 Performed By: #### A 1C #### [facility] [address] [place] [address] Dr. Vicenta Bryant Glucose [Mass/Vol] 91 mg/dL Normal [facility] Comment on above: Performed By: #### A 1C #### [facility] [address] [place], [place] [address] Dr. Vicenta Bryant HbA1c (Bld) [Mass fraction] 4.8 % Normal 4.5-6.2 [facility] Comment on above: Performed By: #### A 1C #### [facility] [address] [place], [place] [address] Dr. Vicenta rByant IRONon 03-06-2022 Iron [Mass/Vol] 73.0 ug/dL Normal 50.0-170.0 [facility] Comment on above: Performed By: #### B 12FOL, IRON ####[facility] [address] [place], [place] [address]IgDr. Vicenta Bryant LIPID PROFILEon 03-06-2022 CHOL-HDL RATIO NORM SEE BELOW Normal [facility] Comment on above: Result Comment: 3.3 - 4.4 LOW RISK 4.4 - 7.1 AVERAGE RISK 7.1 - 11.0 MODERATE RISK >11.0 HIGH RISK Performed By: #### L IPID, TSH, CMP ####[facility] [id number] [place], [place] [address]Kd. Vicenta Bryant Cholesterol [Mass/Vol] 134 mg/dL Normal <=200 [facility] Comment on above: Performed By: #### L IPID, TSH, CMP ####[facility] [address] [place], [place] [address]Zm. Vicenta Bryant Cholesterol in HDL [Mass/Vol] 41 mg/dL Normal 40-60 [facility] Comment on above: Performed By: #### L IPID, TSH, CMP ####[facility] [id number] [place], [place] [address]Ok. Vicenta Bryant Cholesterol in LDL [Mass/Vol] 81.2 mg/dL Normal [facility] Comment on above: Performed By: #### L IPID, TSH, CMP ####[facility] [address] [place], [place] [address]Uv. Vicenta Bryant Cholesterol.total/C holesterol in HDL [Mass ratio] 3.3 {ratio} Normal [facility] Comment on above: Performed By: #### L IPID, TSH, CMP ####[facility] [address] [place] [address]Dr. Vicenta Bryant HDL NORMAL > or = 60 mg/dl - LO W CARDIOVASCULAR RISK <40 mg/dl - HIGH CARDIOVASCULAR RISK Normal [facility] Comment on above: Performed By: #### L IPID, TSH, CMP ####[facility] [address] [place] [address]Dr. Vicenta Bryant LDL CALC NORMAL SEE BELOW Normal [facility] Comment on above: Result Comment: <100 mg/dl OPTIMAL 100 - 129 mg/dl NEAR OR ABOVE OPTIMAL 130 - 159 mg/dl BORDERLINE HIGH 160 - 189 mg/dl HIGH >190 mg/dl VERY HIGH Performed By: #### L IPID, TSH, CMP ####[facility] Vxev[address]upgo[address] [place] [address]Dr. Vicenta Bryant Triglyceride [Mass/Vol] 59 mg/dL Normal <=150 [facility] Comment on above: Performed By: #### L IPID, TSH, CMP ####[facility] [address] [place], [place] [address]Dr. Vicenta Bryant VLDL CALC 11.8 mg/dL Normal [facility] Comment on above: Performed By: #### L IPID, TSH, CMP ####[facility] Rfh[address]ybyh[address] [place] [address]Dr. Vicenta Bryant PROF 14(COMP METB)on 022 Albumin [Mass/Vol] 3.7 g/dL Normal 3.4-5.0 [facility] Comment on above: Performed By: #### L IPID, TSH, CMP ####[facility] [address]az[address]ub[address] [place] [address]Dr. Vicenta rByant Albumin/Globulin [Mass ratio] 1.1 {ratio} Normal [facility] Comment on above: Performed By: #### L IPID, TSH, CMP ####[facility] [address]ydgnobhfv[address] [place] [address]Dr. Vicenta Bryant ALP [Catalytic activity/Vol] 115 U/L Normal 46-116 [facility] Comment on above: Performed By: #### L IPID, TSH, CMP ####[facility] Ynlfpkbliz[address] [place] [address]Dr. Vicenta Bryant ALT [Catalytic activity/Vol] 38 U/L Normal 14-59 [facility] Comment on above: Performed By: #### L IPID, TSH, CMP ####[facility] [address]qu[address] [place] [address]Dr. Vicenta Bryant Anion gap [Moles/Vol] 12.4 mmol/L Normal [facility] Comment on above: Performed By: #### L IPID, TSH, CMP ####[facility] S[address] [place], [place] [address]Dr. Vicenta Bryant AST [Catalytic activity/Vol] 27 U/L Normal 15-37 [facility] Comment on above: Performed By: #### L IPID, TSH, CMP ####[facility] [address] [place], [place] [address]Dr. Vicenta Bryant Bilirubin [Mass/Vol] 0.3 mg/dL Normal 0.2-1.0 [facility] Comment on above: Performed By: #### L IPID, TSH, CMP ####[facility] [address] [place], [place] [address]Dr. Vicenta Bryant Calcium [Mass/Vol] 8.9 mg/dL Normal 8.5-10.1 [facility] Comment on above: Performed By: #### L IPID, TSH, CMP ####[facility] Rfyelcrhqc[address] [place], [place] [address]Dr. Vicenta Bryant Chloride [Moles/Vol] 104 mmol/L Normal 98-107 [facility] Comment on above: Performed By: #### L IPID, TSH, CMP ####[facility] [address]kynegnizn[address] [place], [place] [address]Dr. Vicenta Bryant CO2 [Moles/Vol] 27.8 mmol/L Normal 21.0-32.0 [facility] Comment on above: Performed By: #### L IPID, TSH, CMP ####[facility] [address] [place], [place] [address]Dr. Vicenta Bryant Creatinine [Mass/Vol] 0.53 mg/dL Critically low 0.55-1.02 [facility] Comment on above: Performed By: #### L IPID, TSH, CMP ####[facility] X[address]nvvbej[address] [place] [address]Dr. Vicenta Bryant EGFR-AF BAHRAINI >60 Normal >=60 [facility] Comment on above: Performed By: #### L IPID, TSH, CMP ####[facility] [address]bjqex[address] [place], [place] [address]Dr. Vicenta Bryant EGFR-NON AF BAHRAINI >60 Normal >=60 [facility] Comment on above: Performed By: #### L IPID, TSH, CMP ####[facility] Bdwhcfinjc[address] [place], [place] [address]Dr. Vicenta Bryant Globulin (S) [Mass/Vol] 3.3 g/dL Normal [facility] Comment on above: Performed By: #### L IPID, TSH, CMP ####[facility] [address] [place], [place] [address]Dr. Vicenta Bryant Glucose [Mass/Vol] 88 mg/dL Normal 74-106 [facility] Comment on above: Performed By: #### L IPID, TSH, CMP ####[facility] [address] [place], [place] [address]Dr. Vicenta Bryant Potassium [Moles/Vol] 4.4 mmol/L Normal 3.5-5.1 [facility] Comment on above: Performed By: #### L IPID, TSH, CMP ####[facility] [address]ib[address]niam[address] [place], [place] [address]Dr. Vicenta Bryant Protein [Mass/Vol] 7.0 g/dL Normal 6.4-8.2 [facility] Comment on above: Performed By: #### L IPID, TSH, CMP ####[facility] [address] [place], [place] [address]Dr. Vicenta Bryant Sodium [Moles/Vol] 139 mmol/L Normal 136-145 [facility] Comment on above: Performed By: #### L IPID, TSH, CMP ####[facility] [address]ibpdm[address] [place] [id number]. Vicenta Bryant Urea nitrogen [Mass/Vol] 10.0 mg/dL Normal 7.0-18.0 [facility] Comment on above: Performed By: #### L IPID, TSH, CMP ####[facility] [address]xqkzflc[address] [place] [id number]. Jocydawn Manny Urea nitrogen/Creatinine [Mass ratio] 18.8 mg/mg Normal [facility] Comment on above: Performed By: #### L IPID, TSH, CMP ####[facility] [address]utjcamxk[address] [place] [id number]. Vicenta Bryant TSHon 03-06-2022 TSH 4.364 uIU/mL Critically high 0.358-3.740 [facility] Comment on above: Performed By: #### L IPID, TSH, CMP ####[facility] Tln[address]fie[address] [place] [address]Dr. Vicenta Bryant VIT B12 AND FOLATEon 022 Cobalamin (Vitamin B12) [Mass/Vol] 761.0 pg/mL Normal 193.0-986.0 [facility] Comment on above: Performed By: #### B 12FOL, IRON ####[facility] Klmpvvysbn[address] [place] [address]Dr. Vicenta Manny FOLATE 15.40 ng/mL Normal 8.60-58.90 [facility] Comment on above: Performed By: #### B 12FOL, IRON ####[facility] [address]clw[address]yh[address] [place] [id number]. Vicenta Bryant MAMMO POST BIOPSY LEFTon MAMMO POST BIOPSY LEFT Patient: YAS KURTZ Exam Date: 07/25/2021 : 1960 Gender:F Ordering : DR BULMARO PADRON . Admission #: [id number] Family : Order #: [id number] CLICK HERE TO VIEW EXAM This report [...] Cobian M.D. on 08/03/2021 at 07:08 Normal [facility] US VAC ASST BX BRST LT W CLI Aryan 07-25-2021 US VAC ASST BX BRST LT W CLIP Patient: YAS KURTZ Exam Date: 07/25/2021 : 1960 Gender:F Ordering : DR BULMARO PADRON . Admission #: [id number] Family : Order #: [id number] CLICK HERE TO VIEW EXAM This report [...] M.D. on 08/03/2021 at 07:07 Normal [facility] MG MAMM LT DIAG W CADon 01-0 MG MAMM LT DIAG W CAD Patient: YAS KURTZ Exam Date: 07/20/2021 : 1960 Gender:F Ordering : DR BULMARO PADRON . Admission #: [id number] Family : Order #: [id number] CLICK HERE TO VIEW EXAM RADIOLOGY REPORT [...] lung cancer at age 57. LOCATION: The [facility] BREAST COMPOSITION: Almost entirely fatty. FINDINGS: DIAGNOSTIC [...] M.D. on 07/20/2021 at 15:20 Normal [facility] US BREAST LEFT LIMITEDon US BREAST LEFT LIMITED Patient: YAS KURTZ Exam Date: 07/20/2021 : 1960 Gender:F Ordering : DR BULMARO PADRON . Admission #: [id number] Family : Order #: [id number] CLICK HERE TO VIEW EXAM RADIOLOGY REPORT [...] lung cancer at age 57. LOCATION: The [facility] BREAST COMPOSITION: Almost entirely fatty. FINDINGS: DIAGNOSTIC [...] M.D. on 07/20/2021 at 15:20 Normal [facility] JOSE Antinuclear Antibodieson 08-08-2020 JOSE IFA Note 1 Normal . [facility] Comment on above: Order Comment: Speci men Comment: Test(s) 986655-Wdfu-N7 CARDIOVASCULAR RN (Fibrillarin)(RDL) Specimen Comment: was developed and its performance characteristics Specimen Comment: determined by [facility]. It has not been cleared or approved Specimen Comment: by the Food and Drug Administration. Specimen Comment: Test(s) 853854-Hgmi-JS/Scl-75 Ab (RDL) Specimen Comment: was developed and [...] titers Nucleosomes, Histones Drug-induced SLE Speckled Sm, CARDIOVASCULAR RN, SCL-70, SLE,MCTD,PSS (diffuse form), SS-A/SS-B Sjogrens Nucleolar SCL-70, PM-1/SCL High titers Scleroderma, PM/DM Centromere Centromere PSS (limited form) w/Crest syndrome variable Nuclear Dot Sp100,s40-bcdnxv Primary Biliary Cirrhosis Nuclear GP210, Primary Biliary Cirrhosis Membrane rosi A,B,C Performed at: [facility] [employer] [address] [id number] Produce Field Merchandiser: David Pace PhD, Phone: [phone] Performed By: #### A NTIR, RNA POLYMR, HEP C, ANTI TH TO, HBCAB, PM-SCL ABS, U3 CARDIOVASCULAR RN, HBSAG, HBSAB, JOSE #### [facility] , #### CRP, CK, CMP #### [facility] [address] [place] [address] Antinuclear Abs, IFA Positive Critically abnormal . [facility] Comment on above: Order Comment: Speci men Comment: Test(s) 022224-Maqc-G8 CARDIOVASCULAR RN (Fibrillarin)(RDL) Specimen Comment: was developed and its performance characteristics Specimen Comment: determined by [facility]. It has not been cleared or approved Specimen Comment: by the Food and Drug Administration. Specimen Comment: Test(s) 745387-Vhem-WT/Scl-75 Ab (RDL) Specimen Comment: was developed and its performance characteristics Specimen Comment: determined by [facility]. It has not been cleared or approved Specimen Comment: by the Food and Drug Administration. Result Comment: Nega tive <1:80 Borderline 1:80 Positive >1:80 Performed By: #### A NTIR, RNA POLYMR, HEP C, ANTI TH TO, HBCAB, PM-SCL ABS, U3 CARDIOVASCULAR RN, HBSAG, HBSAB, JOSE #### [facility] , #### CRP, CK, CMP #### [facility] [address] Speckled Pattern 1:640 High . [facility] Comment on above: Order Comment: Speci men Comment: Test(s) 914951-Jsiw-R3 CARDIOVASCULAR RN (Fibrillarin)(RDL) Specimen Comment: was developed and its performance characteristics Specimen Comment: determined by [facility]. It has not been cleared or approved Specimen Comment: by the Food and Drug Administration. Specimen Comment: Test(s) 527227-Uspk-DH/Scl-75 Ab (RDL) Specimen Comment: was developed and its performance characteristics Specimen Comment: determined by [facility]. It has not been cleared or approved Specimen Comment: by the Food and Drug Administration. Performed By: #### A NTIR, RNA POLYMR, HEP C, ANTI TH TO, HBCAB, PM-SCL ABS, U3 CARDIOVASCULAR RN, HBSAG, HBSAB, JOSE #### [facility] , #### CRP, CK, CMP #### [facility] [address] [place] [address] [place] Anti-RNPon 08-08-2020 Anti-CARDIOVASCULAR RN <0.2 Normal 0.0-0.9 [facility] Comment on above: Order Comment: Speci men Comment: Test(s) 779905-Rxzy-U5 CARDIOVASCULAR RN (Fibrillarin)(RDL) Specimen Comment: was developed and its performance characteristics Specimen Comment: determined by [facility]. It has not been cleared or approved Specimen Comment: by the Food and Drug Administration. Specimen Comment: Test(s) 700315-Hear-ZG/Scl-75 Ab (RDL) Specimen Comment: was developed and its performance characteristics Specimen Comment: determined by [facility]. It has not been cleared or approved Specimen Comment: by the Food and Drug Administration. Result Comment: Perf ormed at: - [facility] [id number] [employer] Field Merchandiser: David Pace PhD, Phone: [phone] Performed By: #### A NTIR, RNA POLYMR, HEP C, ANTI TH TO, HBCAB, PM-SCL ABS, U3 CARDIOVASCULAR RN, HBSAG, HBSAB, JOSE #### [facility] , #### CRP, CK, CMP #### [address] C-Reactive Proteinon CRP [Mass/Vol] 0.6 mg/dL Normal 0.0-1.0 [facility] Comment on above: Result Comment: PERF ORMED BY: [place] [address] PATHOLOGIST [employer] AUCTIONEER BEAU JOHNSON M.D. Performed By: #### A NTIR, RNA POLYMR, HEP C, ANTI TH TO, HBCAB, PM-SCL ABS, U3 CARDIOVASCULAR RN, HBSAG, HBSAB, JOSE #### [facility] , #### CRP, CK, CMP #### [address] Complement C3on 08-08-2020 Complement C3 125 mg/dL Normal 82-167 [facility] Comment on above: Result Comment: Perf ormed at: - [facility] [id number] Produ[employer] Field Merchandiser: David Pace PhD, Phone: [phone] Performed By: #### A NTIR, RNA POLYMR, HEP C, ANTI TH TO, HBCAB, PM-SCL ABS, U3 CARDIOVASCULAR RN, HBSAG, HBSAB, JOSE #### [facility] , #### CRP, CK, CMP #### [address] Complement C4on 08-08-2020 Complement C4 17 mg/dL Normal 12-38 [facility] Comment on above: Performed By: #### A NTIR, RNA POLYMR, HEP C, ANTI TH TO, HBCAB, PM-SCL ABS, U3 CARDIOVASCULAR RN, HBSAG, HBSAB, JOSE #### [facility] , #### CRP, CK, CMP #### [address] Complement Total (CH50)on Complement Total (CH50) >60 Normal >41 [facility] Comment on above: Result Comment: Age [...] of range values. Performed at: - [facility] [address] [id number] Produ[employer] Merchandiser: David Pace PhD, Phone: [phone] PERFORMED BY: [place] [address] PATHOLOGIST [employer] AUCTIONEER BEAU JOHNSON M.D. Performed By: #### A NTIR, RNA POLYMR, HEP C, ANTI TH TO, HBCAB, PM-SCL ABS, U3 CARDIOVASCULAR RN, HBSAG, HBSAB, JOSE #### [facility] , #### CRP, CK, CMP #### [address] Complete Blood Count Auto Di ffon 08-08-2020 Basophils (Bld) [#/Vol] 0.0 10*3/uL Normal 0.0-0.2 [facility] Comment on above: Performed By: #### A NTIR, RNA POLYMR, HEP C, ANTI TH TO, HBCAB, PM-SCL ABS, U3 CARDIOVASCULAR RN, HBSAG, HBSAB, JOSE #### [facility] , #### CRP, CK, CMP #### [facility] [address] [place] [address] Basophils/100 WBC (Bld) 0.4 % Normal . [facility] Comment on above: Performed By: #### A NTIR, RNA POLYMR, HEP C, ANTI TH TO, HBCAB, PM-SCL ABS, U3 CARDIOVASCULAR RN, HBSAG, HBSAB, JOSE #### [facility] , #### CRP, CK, CMP #### [address] Eosinophils (Bld) [#/Vol] 0.0 10*3/uL Normal 0.0-0.45 [facility] Comment on above: Performed By: #### A NTIR, RNA POLYMR, HEP C, ANTI TH TO, HBCAB, PM-SCL ABS, U3 CARDIOVASCULAR RN, HBSAG, HBSAB, JOSE #### [facility] , #### CRP, CK, CMP #### [address] Eosinophils/100 WBC (Bld) 0.6 % Normal . [facility] Comment on above: Performed By: #### A NTIR, RNA POLYMR, HEP C, ANTI TH TO, HBCAB, PM-SCL ABS, U3 CARDIOVASCULAR RN, HBSAG, HBSAB, JOSE #### [facility] , #### CRP, CK, CMP #### [address] Erythrocyte distribution width (RBC) [Ratio] 12.7 % Normal 11.9-15.3 [facility] Comment on above: Performed By: #### A NTIR, RNA POLYMR, HEP C, ANTI TH TO, HBCAB, PM-SCL ABS, U3 CARDIOVASCULAR RN, HBSAG, HBSAB, JOSE #### [facility] , #### CRP, CK, CMP #### [address] Hematocrit (Bld) [Volume fraction] 40.9 % Normal 34.0-46.4 [facility] Comment on above: Performed By: #### A NTIR, RNA POLYMR, HEP C, ANTI TH TO, HBCAB, PM-SCL ABS, U3 CARDIOVASCULAR RN, HBSAG, HBSAB, JOSE #### [facility] , #### CRP, CK, CMP #### [address] Hemoglobin (Bld) [Mass/Vol] 13.5 g/dL Normal 11.8-15.4 [facility] Comment on above: Performed By: #### A NTIR, RNA POLYMR, HEP C, ANTI TH TO, HBCAB, PM-SCL ABS, U3 CARDIOVASCULAR RN, HBSAG, HBSAB, JOSE #### [facility] , #### CRP, CK, CMP #### [address] Lymphocytes (Bld) [#/Vol] 1.7 10*3/uL Normal 1.00-4.8 [facility] Comment on above: Performed By: #### A NTIR, RNA POLYMR, HEP C, ANTI TH TO, HBCAB, PM-SCL ABS, U3 CARDIOVASCULAR RN, HBSAG, HBSAB, JOSE #### [facility] , #### CRP, CK, CMP #### [address] Lymphocytes/100 WBC (Bld) 25.7 % Normal . [facility] Comment on above: Performed By: #### A NTIR, RNA POLYMR, HEP C, ANTI TH TO, HBCAB, PM-SCL ABS, U3 CARDIOVASCULAR RN, HBSAG, HBSAB, JOSE #### [facility] , #### CRP, CK, CMP #### [address] MCH (RBC) [Entitic mass] 32.9 g/dL Normal 32.0-35.0 [facility] Comment on above: Performed By: #### A NTIR, RNA POLYMR, HEP C, ANTI TH TO, HBCAB, PM-SCL ABS, U3 CARDIOVASCULAR RN, HBSAG, HBSAB, JOSE #### [facility] , #### CRP, CK, CMP #### [address] MCH (RBC) [Entitic mass] 31.1 pg Normal 24.7-34.3 [facility] Comment on above: Performed By: #### A NTIR, RNA POLYMR, HEP C, ANTI TH TO, HBCAB, PM-SCL ABS, U3 CARDIOVASCULAR RN, HBSAG, HBSAB, JOSE #### [facility] , #### CRP, CK, CMP #### [address] MCV (RBC) [Entitic vol] 94.4 fL Normal 80-100 [facility] Comment on above: Performed By: #### A NTIR, RNA POLYMR, HEP C, ANTI TH TO, HBCAB, PM-SCL ABS, U3 CARDIOVASCULAR RN, HBSAG, HBSAB, JOSE #### [facility] , #### CRP, CK, CMP #### [address] Monocytes (Bld) [#/Vol] 0.6 10*3/uL Normal 0.0-0.8 [facility] Comment on above: Performed By: #### A NTIR, RNA POLYMR, HEP C, ANTI TH TO, HBCAB, PM-SCL ABS, U3 CARDIOVASCULAR RN, HBSAG, HBSAB, JOSE #### [facility] , #### CRP, CK, CMP #### [address] Monocytes/100 WBC (Bld) 8.9 % Normal . [facility] Comment on above: Performed By: #### A NTIR, RNA POLYMR, HEP C, ANTI TH TO, HBCAB, PM-SCL ABS, U3 CARDIOVASCULAR RN, HBSAG, HBSAB, JOSE #### [facility] , #### CRP, CK, CMP #### [address] Neutrophils (Bld) [#/Vol] 4.2 10*3/uL Normal 1.8-7.7 [facility] Comment on above: Performed By: #### A NTIR, RNA POLYMR, HEP C, ANTI TH TO, HBCAB, PM-SCL ABS, U3 CARDIOVASCULAR RN, HBSAG, HBSAB, JOSE #### [facility] , #### CRP, CK, CMP #### [address] Neutrophils/100 WBC (Bld) 64.4 % Normal . [facility] Comment on above: Performed By: #### A NTIR, RNA POLYMR, HEP C, ANTI TH TO, HBCAB, PM-SCL ABS, U3 CARDIOVASCULAR RN, HBSAG, HBSAB, JOSE #### [facility] , #### CRP, CK, CMP #### [address] Nucleated RBC/100 WBC (Bld) [Ratio] 0.1 % Normal 0-0.5 [facility] Comment on above: Performed By: #### A NTIR, RNA POLYMR, HEP C, ANTI TH TO, HBCAB, PM-SCL ABS, U3 CARDIOVASCULAR RN, HBSAG, HBSAB, JOSE #### [facility] , #### CRP, CK, CMP #### [address] Platelet mean volume (Bld) [Entitic vol] 9.8 fL Normal 6.3-10.7 [facility] Comment on above: Performed By: #### A NTIR, RNA POLYMR, HEP C, ANTI TH TO, HBCAB, PM-SCL ABS, U3 CARDIOVASCULAR RN, HBSAG, HBSAB, JOSE #### [facility] , #### CRP, CK, CMP #### [address] Platelets (Bld) [#/Vol] 206 10*3/uL Normal 150-450 [facility] Comment on above: Performed By: #### A NTIR, RNA POLYMR, HEP C, ANTI TH TO, HBCAB, PM-SCL ABS, U3 CARDIOVASCULAR RN, HBSAG, HBSAB, JOSE #### [facility] , #### CRP, CK, CMP #### [address] RBC (Bld) [#/Vol] 4.33 10*6/uL Normal 3.60-5.00 [facility] Comment on above: Performed By: #### A NTIR, RNA POLYMR, HEP C, ANTI TH TO, HBCAB, PM-SCL ABS, U3 CARDIOVASCULAR RN, HBSAG, HBSAB, JOSE #### [facility] , #### CRP, CK, CMP #### [address] WBC (Bld) [#/Vol] 6.5 10*3/uL Normal 3.8-11.6 [facility] Comment on above: Performed By: #### A NTIR, RNA POLYMR, HEP C, ANTI TH TO, HBCAB, PM-SCL ABS, U3 CARDIOVASCULAR RN, HBSAG, HBSAB, JOSE #### [facility] , #### CRP, CK, CMP #### [address] Comprehensive Metabolic Pane lilian 08-08-2020 Albumin [Mass/Vol] 4.1 g/dL Normal 3.2-5.5 [facility] Comment on above: Performed By: #### A NTIR, RNA POLYMR, HEP C, ANTI TH TO, HBCAB, PM-SCL ABS, U3 CARDIOVASCULAR RN, HBSAG, HBSAB, JOSE #### [facility] , #### CRP, CK, CMP #### [address] Albumin/Globulin [Mass ratio] 1.9 {ratio} Normal [facility] Comment on above: Performed By: #### A NTIR, RNA POLYMR, HEP C, ANTI TH TO, HBCAB, PM-SCL ABS, U3 CARDIOVASCULAR RN, HBSAG, HBSAB, JOSE #### [facility] , #### CRP, CK, CMP #### [facility] [address] [place] [address] ALP [Catalytic activity/Vol] 81 U/L Normal 32-92 [facility] Comment on above: Performed By: #### A NTIR, RNA POLYMR, HEP C, ANTI TH TO, HBCAB, PM-SCL ABS, U3 CARDIOVASCULAR RN, HBSAG, HBSAB, JOSE #### [facility] , #### CRP, CK, CMP #### [address] ALT [Catalytic activity/Vol] 35 U/L Normal 10- [facility] Comment on above: Performed By: #### A NTIR, RNA POLYMR, HEP C, ANTI TH TO, HBCAB, PM-SCL ABS, U3 CARDIOVASCULAR RN, HBSAG, HBSAB, JOSE #### [facility] , #### CRP, CK, CMP #### [address] AST [Catalytic activity/Vol] 25 U/L Normal [facility] Comment on above: Performed By: #### A NTIR, RNA POLYMR, HEP C, ANTI TH TO, HBCAB, PM-SCL ABS, U3 CARDIOVASCULAR RN, HBSAG, HBSAB, JOSE #### [facility] , #### CRP, CK, CMP #### [address] Bilirubin [Mass/Vol] 0.4 mg/dL Normal 0.3-1.2 [facility] Comment on above: Performed By: #### A NTIR, RNA POLYMR, HEP C, ANTI TH TO, HBCAB, PM-SCL ABS, U3 CARDIOVASCULAR RN, HBSAG, HBSAB, JOSE #### [facility] , #### CRP, CK, CMP #### [address] Calcium [Mass/Vol] 9.2 mg/dL Normal 8.2-10.2 [facility] Comment on above: Performed By: #### A NTIR, RNA POLYMR, HEP C, ANTI TH TO, HBCAB, PM-SCL ABS, U3 CARDIOVASCULAR RN, HBSAG, HBSAB, JOSE #### [facility] , #### CRP, CK, CMP #### [address] Chloride [Moles/Vol] 106 mmol/L Normal 95-114 [facility] Comment on above: Performed By: #### A NTIR, RNA POLYMR, HEP C, ANTI TH TO, HBCAB, PM-SCL ABS, U3 CARDIOVASCULAR RN, HBSAG, HBSAB, JOSE #### [facility] , #### CRP, CK, CMP #### [address] CO2 [Moles/Vol] 28.1 mmol/L Normal 22.0-30.0 [facility] Comment on above: Performed By: #### A NTIR, RNA POLYMR, HEP C, ANTI TH TO, HBCAB, PM-SCL ABS, U3 CARDIOVASCULAR RN, HBSAG, HBSAB, JOSE #### [facility] , #### CRP, CK, CMP #### [address] Creatinine [Mass/Vol] 0.64 mg/dL Normal 0.44-1.03 [facility] Comment on above: Performed By: #### A NTIR, RNA POLYMR, HEP C, ANTI TH TO, HBCAB, PM-SCL ABS, U3 CARDIOVASCULAR RN, HBSAG, HBSAB, JOSE #### [facility] , #### CRP, CK, CMP #### [address] Estimated GFR ( Tari > 60 [facility] Comment on above: Result Comment: GFR estimated reference range: According to KDOQI guidelines, <60 ml/min/1.73m2 is sufficient to diagnose a patient with chronic kidney disease. Performed By: #### A NTIR, RNA POLYMR, HEP C, ANTI TH TO, HBCAB, PM-SCL ABS, U3 CARDIOVASCULAR RN, HBSAG, HBSAB, JOSE #### [facility] , #### CRP, CK, CMP #### [address] Estimated GFR (Non- Am > 60 Normal [facility] Comment on above: Performed By: #### A NTIR, RNA POLYMR, HEP C, ANTI TH TO, HBCAB, PM-SCL ABS, U3 CARDIOVASCULAR RN, HBSAG, HBSAB, JOSE #### [facility] , #### CRP, CK, CMP #### [address] Globulin (S) [Mass/Vol] 2.2 g/dL Normal [facility] Comment on above: Performed By: #### A NTIR, RNA POLYMR, HEP C, ANTI TH TO, HBCAB, PM-SCL ABS, U3 CARDIOVASCULAR RN, HBSAG, HBSAB, JOSE #### [facility] , #### CRP, CK, CMP #### [address] Glucose [Mass/Vol] 87 mg/dL Normal 70-100 [facility] Comment on above: Result Comment: [facility] Glucose Reference Range is dependent on time and content of last meal. Glucose of more than 200 mg/dL in a nonstressed, ambulatory subject supports the diagnosis of Diabetes Mellitus. ADA recommended reference range Performed By: #### A NTIR, RNA POLYMR, HEP C, ANTI TH TO, HBCAB, PM-SCL ABS, U3 CARDIOVASCULAR RN, HBSAG, HBSAB, JOSE #### [facility] , #### CRP, CK, CMP #### [address] Potassium [Moles/Vol] 4.5 mmol/L Normal 3.5-5.1 [facility] Comment on above: Performed By: #### A NTIR, RNA POLYMR, HEP C, ANTI TH TO, HBCAB, PM-SCL ABS, U3 CARDIOVASCULAR RN, HBSAG, HBSAB, JOSE #### [facility] , #### CRP, CK, CMP #### [address] Protein [Mass/Vol] 6.3 g/dL Normal 6.1-7.9 [facility] Comment on above: Performed By: #### A NTIR, RNA POLYMR, HEP C, ANTI TH TO, HBCAB, PM-SCL ABS, U3 CARDIOVASCULAR RN, HBSAG, HBSAB, JOSE #### [facility] , #### CRP, CK, CMP #### [address] Sodium [Moles/Vol] 143 mmol/L Normal 136-146 [facility] Comment on above: Performed By: #### A NTIR, RNA POLYMR, HEP C, ANTI TH TO, HBCAB, PM-SCL ABS, U3 CARDIOVASCULAR RN, HBSAG, HBSAB, JOSE #### [facility] , #### CRP, CK, CMP #### [address] Urea nitrogen [Mass/Vol] 11 mg/dL Normal 9-23 [facility] Comment on above: Performed By: #### A NTIR, RNA POLYMR, HEP C, ANTI TH TO, HBCAB, PM-SCL ABS, U3 CARDIOVASCULAR RN, HBSAG, HBSAB, JOSE #### [facility] , #### CRP, CK, CMP #### [address] Creatine Kinaseon 08-08-2020 CK [Catalytic activity/Vol] 39 U/L Normal 22-269 [facility] Comment on above: Result Comment: PERF ORMED BY: [place] [address] PATHOLOGIST LIVESTOCK AUCTIONEER BEAU JOHNSON M.D. Performed By: #### A NTIR, RNA POLYMR, HEP C, ANTI TH TO, HBCAB, PM-SCL ABS, U3 CARDIOVASCULAR RN, HBSAG, HBSAB, JOSE #### [facility] , #### CRP, CK, CMP #### [address] Erythrocyte Sedimentation Ra byron 08-08-2020 ESR (Bld) [Velocity] 4 mm/h Normal 0-29 [facility] Comment on above: Result Comment: PERF ORMED BY: [place] [id number] PATHOLOGIST LIVESTOCK AUCTIONEER BEAU JOHNSON M.D. Performed By: #### A NTIR, RNA POLYMR, HEP C, ANTI TH TO, HBCAB, PM-SCL ABS, U3 CARDIOVASCULAR RN, HBSAG, HBSAB, JOSE #### [facility] , #### CRP, CK, CMP #### [facility] [address] Hep C Ab w Verificationon HCV AB <0.1 Normal 0.0-0.9 [facility] Comment on above: Order Comment: Speci men Comment: Test(s) [id number]-Lief-E4 CARDIOVASCULAR RN (Fibrillarin)(RDL) Specimen Comment: was developed and its performance characteristics Specimen Comment: determined by [facility]. It has not been cleared or approved Specimen Comment: by the Food and Drug Administration. Specimen Comment: Test(s) [id number]-Kqkw-PY/Scl-75 Ab (RDL) Specimen Comment: was developed and its performance characteristics Specimen Comment: determined by [facility]. It has not been cleared or approved Specimen Comment: by the Food and Drug Administration. Performed By: #### A NTIR, RNA POLYMR, HEP C, ANTI TH TO, HBCAB, PM-SCL ABS, U3 CARDIOVASCULAR RN, HBSAG, HBSAB, JOSE #### [facility] , #### CRP, CK, CMP #### [facility] [address] [place] [address] [place] HCV Ab Comment Normal . [facility] Comment on above: Order Comment: Speci men Comment: Test(s) [id number]-Flyp-S2 CARDIOVASCULAR RN (Fibrillarin)(RDL) Specimen Comment: was developed and its performance characteristics Specimen Comment: determined by [facility]. It has not been cleared or approved Specimen Comment: by the Food and Drug Administration. Specimen Comment: Test(s) [id number]-Kkry-DV/Scl-75 Ab (RDL) Specimen Comment: was developed and [...] ANTI TH TO, HBCAB, PM-SCL ABS, U3 CARDIOVASCULAR RN, HBSAG, HBSAB, JOSE #### [facility] , #### CRP, CK, CMP #### [facility] [address] [place] [address] Hepatitis B Core Antibodyon 08-08-2020 Hepatitis B Core Antibody Negative Normal Negative [facility] Comment on above: Order Comment: Speci men Comment: Test(s) [id number]-Tvps-Y1 CARDIOVASCULAR RN (Fibrillarin)(RDL) Specimen Comment: was developed and its performance characteristics Specimen Comment: determined by [facility]. It has not been cleared or approved Specimen Comment: by the Food and Drug Administration. Specimen Comment: Test(s) [id number]-Vikw-CE/Scl-75 Ab (RDL) Specimen Comment: was developed and its performance characteristics Specimen Comment: determined by [facility]. It has not been cleared or approved Specimen Comment: by the Food and Drug Administration. Result Comment: Perf ormed at: [place] [id number] Produce Field Merchandiser: David Pace PhD, Phone: [phone] Performed By: #### A NTIR, RNA POLYMR, HEP C, ANTI TH TO, HBCAB, PM-SCL ABS, U3 CARDIOVASCULAR RN, HBSAG, HBSAB, JOSE #### [facility] , #### CRP, CK, CMP #### [address] Hepatitis B Surface Antibody on 08-08-2020 Hepatitis B Surface Antibody Non Reactive Normal . [facility] Comment on above: Order Comment: Speci men Comment: Test(s) [id number]-Ihdv-S8 CARDIOVASCULAR RN (Fibrillarin)(RDL) Specimen Comment: was developed and its performance characteristics Specimen Comment: determined by [facility]. It has not been cleared or approved Specimen Comment: by the Food and Drug Administration. Specimen Comment: Test(s) [id number]-Licx-PA/Scl-75 Ab (RDL) Specimen Comment: was developed and [...] ANTI TH TO, HBCAB, PM-SCL ABS, U3 CARDIOVASCULAR RN, HBSAG, HBSAB, JOSE #### [facility] , #### CRP, CK, CMP #### [address] Hepatitis B Surface Antigeno n 08-08-2020 HBsAg Screen Negative Normal Negative [facility] Comment on above: Order Comment: Speci men Comment: Test(s) [id number]-Koki-P7 CARDIOVASCULAR RN (Fibrillarin)(RDL) Specimen Comment: was developed and its performance characteristics Specimen Comment: determined by [facility]. It has not been cleared or approved Specimen Comment: by the Food and Drug Administration. Specimen Comment: Test(s) [id number]-Hhct-ZX/Scl-75 Ab (RDL) Specimen Comment: was developed and its performance characteristics Specimen Comment: determined by [facility]. It has not been cleared or approved Specimen Comment: by the Food and Drug Administration. Performed By: #### A NTIR, RNA POLYMR, HEP C, ANTI TH TO, HBCAB, PM-SCL ABS, U3 CARDIOVASCULAR RN, HBSAG, HBSAB, JOSE #### [facility] , #### CRP, CK, CMP #### [facility] [address] [place] [address] PM-SCL Antibodieson 08-08-19 21 JOHN PM-Scl Antibody <20 Normal <20 [facility] Comment on above: Order Comment: Speci men Comment: Test(s) [id number]-Athc-Y2 CARDIOVASCULAR RN (Fibrillarin)(RDL) Specimen Comment: was developed and its performance characteristics Specimen Comment: determined by [facility]. It has not been cleared or approved Specimen Comment: by the Food and Drug Administration. Specimen Comment: Test(s) [id number]-Qqwa-RZ/Scl-75 Ab (RDL) Specimen Comment: was developed and its performance characteristics Specimen Comment: determined by [facility]. It has not been cleared or approved Specimen Comment: by the Food and Drug Administration. Result Comment: Nega tive: <20 Weak Positive: 20 - 39 Moderate Positive: 40 - 80 Strong Positive: >80 Performed at: [facility] [address] [place] [id number] Produce Field Merchandiser: Shay Mcnair MD, Phone: [phone] Performed By: #### A NTIR, RNA POLYMR, HEP C, ANTI TH TO, HBCAB, PM-SCL ABS, U3 CARDIOVASCULAR RN, HBSAG, HBSAB, JOSE #### [facility] , #### CRP, CK, CMP #### [facility] [address] [place] [address] RNA Polymerase IIion RNA Polymerase IIi <20 Normal <20 [facility] Comment on above: Order Comment: Speci men Comment: Test(s) [id number]-Qzkb-Pw/To Ab (RDL) Specimen Comment: was developed and its performance characteristics Specimen Comment: determined by [facility]. It has not been cleared or approved Specimen Comment: by the Food and Drug Administration. Result Comment: Nega tive: <20 Weak Positive: 20 - 39 Moderate Positive: 40 - 80 Strong Positive: >80 Performed at: [facility] [address] [place] [id number] Produce Field Merchandiser: Shay Mcnair MD, Phone: [phone] PERFORMED BY: [place] [address] PATHOLOGIST LIVESTOCK AUCTIONEER BEAU JOHNSON M.D. Performed By: #### A NTIR, RNA POLYMR, HEP C, ANTI TH TO, HBCAB, PM-SCL ABS, U3 CARDIOVASCULAR RN, HBSAG, HBSAB, JOSE #### [facility] , #### CRP, CK, CMP #### [place] [address] [place] Th/To Antibodyon 08-08-2020 Th/To Antibody Negative Normal Negative [facility] Comment on above: Order Comment: Speci men Comment: Test(s) [id number]-Mlip-Ev/To Ab (RDL) Specimen Comment: was developed and its performance characteristics Specimen Comment: determined by [facility]. It has not been cleared or approved Specimen Comment: by the Food and Drug Administration. Result Comment: Perf ormed at: [email or web address] [employer] [address] [place], [place] [id number] Produce Field Merchandiser: Shay Mcnair MD, Phone: [phone] Performed By: #### A NTIR, RNA POLYMR, HEP C, ANTI TH TO, HBCAB, PM-SCL ABS, U3 CARDIOVASCULAR RN, HBSAG, HBSAB, JOSE #### [facility] , #### CRP, CK, CMP #### [address] U3 Rnpon 08-08-2020 U3 Tube Test Technician Negative Normal Negative [facility] Comment on above: Order Comment: Speci men Comment: Test(s) [id number]-Kxwr-F4 CARDIOVASCULAR RN (Fibrillarin)(RDL) Specimen Comment: was developed and its performance characteristics Specimen Comment: determined by [facility]. It has not been cleared or approved Specimen Comment: by the Food and Drug Administration. Specimen Comment: Test(s) [id number]-Eubt-PA/Scl-75 Ab (RDL) Specimen Comment: was developed and its performance characteristics Specimen Comment: determined by [facility]. It has not been cleared or approved Specimen Comment: by the Food and Drug Administration. Result Comment: Perf ormed at: [facility] [employer] [facility] [address] [place], [place] [id number] Produce Field Merchandiser: Shay Mcnair MD, Phone: [phone] PERFORMED BY: [place] [address] PATHOLOGIST LIVESTOCK AUCTIONEER BEAU JOHNSON M.D. Performed By: #### A NTIR, RNA POLYMR, HEP C, ANTI TH TO, HBCAB, PM-SCL ABS, U3 CARDIOVASCULAR RN, HBSAG, HBSAB, JOSE #### [facility] , #### CRP, CK, CMP #### [facility] [address] [place] [id number] [facility] T4on 08-02-2020 T4, Total 9.9 ug/dL 4.5 - 10.9 ug/dL [place], [place] TSH without Reflexon 021 Interpretation and review of laboratory results Abnormal [place], [place] TSH Qn 5.63 m[IU]/L [place] Vital Signs Date Time Vital Sign [...] Date Encounter Type Care Provider Facility Start: 03-02-2024 End: 03-02-2024 ambulatory Akira Vargas MD Facility:[facility] Start: 05-28-2023 End: 05-29-2023 ambulatory Aayush MENDOZA Facility:[facility] Start: 05-27-2023 ambulatory Aayush MENDOZA Facility:[facility] Start: 04-29-2023 ambulatory Aayush MENDOZA Facility:[facility] Start: 04-02-2023 End: 04-03-2023 ambulatory ARMIDA AGEE [facility] Start: 02-01-2023 End: 02-01-2023 Subsequent hospital visit by physician Bulmaro Padron MD Work Phone: [facility] Laboratory Comment on above: Nocturia; Frequency of urination; Urge incontinence Start: 02-01-2023 End: 02-04-2023 ambulatory GABBIE Abi LEILAKATIE [facility] Start: 01-10-2023 Emergency department patient visit BULMARO Gee [facility] Start: 01-10-2023 End: 01-10-2023 Emergency department patient visit Bulmaro Padron MD Work Phone: [facility] ED Comment on above: Right ureteral stone (Primary Dx) Start: 10-09-2022 Emergency department patient visit JORDYN EATON [facility] Start: 06-19-2022 End: 06-20-[address] [...] Subsequent hospital visit by physician Bulmaro Padron [facility] Laboratory Procedures Date Procedure Procedure Detail Performing Clinician Start: 02-01-2023 Culture bacterial quanttative colony count urine Gabbie W Cindy [employer]ECTIVE [employer] - SOUND ENGINEER Work Phone: Start: 01-10-2023 Ct abdomen & pelvis w/o contrast material Cari Bedmichelekodavid [employer]ECT[employer] - SOUND ENGINEER Work Phone: Start: 01-10-2023 Comprehensive metabo lic panel Carilinnea Britton [employer]ECT[employer] - SOUND ENGINEER Work Phone: Start: 01-10-2023 Urinalysis microscopic only Unknown Provider Result Start: 01-10-2023 Urnls dip stick/tabl et rgnt auto w/o microscopy Cari Bedenkop [employer] - SOUND ENGINEER Work Phone: Start: 08-02-2020 Assay of thyroid stimulating hormone tsh Bulmaro Padron Work Phone: Start: 08-02-2020 Assay of thyroxine total Bulmaro Padron Work Phone: Plan of Treatment Date Care Activity Detail Author Start: 01-27-2028 DTaP/Tdap/Td vaccine (2 - Td or Tdap) DTaP/Tdap/Td vaccine (2 - Td or Tdap) [facility] [employer] Start: 01-27-2028 DTaP/Tdap/Td vaccine (2 - Td) DTaP/Tdap/Td vaccine (2 - Td) [place] Start: 02-12-2023 Influenza vaccination B [facility] Start: 03-15-2020 Influenza vaccination Flu vaccine (# 1) [place] Start: 01-04-2019 Annual Wellness Visi t (AWV) Annual Wellness Visit (AWV) [facility] [employer] Start: 2012 Screening for malign ant neoplasm of breast Breast cancer screen [facility] [employer] Start: 2012 Screening for malign ant neoplasm of colon Colon cancer screen colonoscopy [place] Start: 2012 Shingles Vaccine (1 of 2) Shingles Vaccine (1 of 2) [facility] [employer] Start: 12-15-2007 Screening for malign ant neoplasm of colon [facility] [employer] Start: 2002 Lipid panel [facility] [employer] Start: 1997 Diabetes screen Diabetes screen [facility] [employer] Start: 1992 Screening for malign ant neoplasm of cervix [facility] [employer] Start: 12-15-1983 Screening for malign ant neoplasm of cervix [facility] [employer] Start: 1980 Hepatitis C screening Hepatitis C sc reen [facility] [employer] Start: 1977 HIV screening HIV screen [facility] [employer] Start: 1974 Depression Screen Depression Screen [facility] [employer] Start: 06-15-1963 COVID-19 Vaccine (#1) COVID-19 Vacci ne (#1) [facility] Start: 1962 Hepatitis C screening Hepatitis C sc reecamelia [place] End: 08-02-2020 Free T3 [Mass/Vol] T3, Free Lab Routine Once for 1 Occurrences starting 08/02/2020 until 08/02/2020 [place] Comment on above: Once for 1 Occurrenc es starting 08/02/2020 until 08/02/2020 Free T3 [Mass/Vol] T3, Free Lab Routine 08/02/2020 10:13 AM EST [place] Immunizations Immunization Date Immunization Notes Care Provider Gt doyle 01-26-2018 tetanus toxoid, redu clare diphtheria toxoid, and acellular pertussis vaccine, adsorbed Bulmaro Hoy [facility] Payers Date Payer Category Payer Private Health Insurance 2018 Medicare [id number] 2017 Unknown [id number] 1962 Unknown [id number] 2.16.84 [id number] 1962 Unknown [id number] 2.16.84 [id number] 1962 Unknown [id number] 2.16.84 [id number] 1962 Unknown [id number] 2.16.84 [id number] 1962 Unknown [id number] 2.16.84 [id number] 1962 Unknown [id number] 2.16.84 [id number] 1962 Unknown [id number] 2.16.8 [id number] 1962 Unknown [id number] 2.16.8 [id number] 1962 Unknown [id number] 2.16.8 [id number] 1962 Unknown [id number] 2.16.8 [id number] 1962 Unknown [id number] 2.16.8 [id number] 1962 Unknown [id number] 2.16. [id number] Social History Date Type Detail Facility Start: 07-01-2018 End: 01-11-2023 Tobacco smoking status NHIS Former smoker [place], [place] Start: 07-01-2018 End: 01-11-2023 Tobacco use and exposure Never used [facility] [employer] Start: 07-01-2018 End: 02-01-2023 Alcohol intake Current non-drinker of alcohol (finding) [place], [place] Start: 1960 Sex Assigned At Not on file [place] History of tobacco use [facility] Start: 10-09-2022 History SDOH Alcohol Frequency 1 [facility] [employer] Start: 10-09-2022 History SDOH Alcohol Std Drinks [address] [facility] [employer] Clinical Note 05-28-2023 Note Date & Type [...] Substance Abuse, 05/28/20 (more content not included)... 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 Summary Purpose Family History No Family History Records FoundNo Family History Records FoundNo Family History Records FoundNo Family History Records FoundNo Family History Records Found Additional Source Comments INFORMATION SOURCE (unrecogn ized section and content) DATE CREATED AUTHOR 08/17/2020 [facility] DATE CREATED AUTHOR AUTHOR'S ORGANIZ ATION 06/23/2022 [facility] DATE CREATED AUTHOR AUTHOR'S ORGANIZ ATION 04/[facility]/2023 [facility] DATE CREATED AUTHOR AUTHOR'S ORGANIZ ATION 05/29/2023 [facility] DATE CREATED AUTHOR AUTHOR'S ORGANIZ ATION 03/14/2024 [facility] Reason for Visit (unrecogniz ed section and [...] patient on the 2002 [facility]: Celia Brady RN) HYDROmorphone [...] hour of each other unless specifically ordered. 1803 (Given - Provid er: Whitney Ingram RN) ondansetron (ZOFRAN) injection 4 mg (COMPLETED) 4 mg, IntraVENous, ONCE, 1 dose, On Lashawn 01/10/23 at 1745 180 (Given - Provid er: Whitney Ingram RN) tamsulosin (FLOMAX) capsule 0.4 mg 0.4 mg, Oral, DAILY, First dose on Lashawn 01/10/23 at 1945, Until Discontinued, Do not crush or break. Give 30 minutes after a full meal to limit risk of orthostatic hypotension/falls. 2003 (Given - Provid er: Celia Brady RN) Care Teams (unrecognized sec tion and content) Fast Food Supervisor Relationship Specialty Start Date End Date Bulmaro Padron MD [address] [place] [address] PCP - General Family Medicine 01/26/18 Fast Food Supervisor Relationship Specialty [place] [address] [place], [place] [id number] PCP - General Family Medicine 01/26/18 FOR [...] BE BASED ON THE PRIMARY CLINICAL RECORDS. [facility] [employer] [facility]. provides no warranty or guarantee of the accuracy or completeness of information in this document.
--- NOTE | 2024-03-25 11:52 | P.CN_ITS ---
Consult Note: HPI Data of Consult Patient: known to practice within the last 3 years Consult date: 03/02/24 Requesting Physician: Liz Perales NP Primary Care Provider: Sebastien Padron MD Consult Narrative Reason for consult: low back pain Narrative: 63yof who presents for evaluation. longstanding low back pain history >20 years, now worsening. worse with standing and ambulation. imaging reviewed, which shows facet arthropathy throughout lower lumbar spine. has engaged in physical therapy and continues in >6 weeks of provider directed home exercise program, without lasting benefit. has tried various pain meds, without significant benefit. tried muscle relaxers without benefit. denies adverse med side effects. recently underwent bilateral L4-5 L5-S1 MBB #1 with >80% improvement in pain and functional ability immediately following and at least two hours after the procedure, pain 07/24. cc:: CC: Liz Perales NP Review of Systems ROS Status of ROS 10 or more systems reviewed and unremark able except as noted in history and below Musculoskeletal Reports: back pain PFSH PFSH Medical History (Updated 03/10/24 @ 11:57 by Princess Brown) H/O complications due to general anesthesia ?Z91.89 - Other specified personal risk factors, not elsewhere classified (ICD-10) Anemia ?D64.9 - Anemia, unspecified (ICD-10) Heartburn ?R12 - Heartburn (ICD-10) Obesity ?E66.9 - Obesity, unspecified (ICD-10) Hypothyroid ?E03.9 - Hypothyroidism, unspecified (ICD-10) Asthma ?J45.909 - Unspecified asthma, uncomplicated (ICD-10) Surgical History H/O abdominal surgery ?Z98.890 - Other specified postprocedural states (ICD-10) S/P hernia repair ?Z98.890 - Other specified postprocedural states (ICD-10) ?Z87.19 - Personal history of other diseases of the digestive system (ICD-10) Meds Home Medications and Allergies Home Medications ?Medication ?Instructions ?Recorded ?Confirmed ?Type albuterol sulfate 90 mcg/actuation 2 inh inhalation Q6H PRN shortness 03/02/24 03/23/24 History breath activated powder inhaler of breath or wheezing aspirin 81 mg capsule 81 mg PO DAILY 03/02/24 03/23/24 History cholecalciferol (vitamin D3) 50 50 mcg PO DAILY 03/02/24 03/23/24 History mcg (2,000 unit) capsule hydroxychloroquine 200 mg tablet 200 mg PO DAILY 03/02/24 03/23/24 History levothyroxine 150 mcg capsule 150 mcg PO DAILY 03/02/24 03/23/24 History liothyronine 5 mcg tablet 15 mcg PO DAILY 03/02/24 03/23/24 History Allergies Allergy/AdvReac Type Severity Reaction Status Date / Time bees Allergy Unknown Unknown Uncoded 03/23/24 11:15 Exam Narrative Exam Narrative: Psych-alert and oriented x 3. Attentive and appropriate, constitutionally normal, displays normal mood and affect per situation.? There are no obvious deficits in memory, reasoning, or intellect.? Skin-no obvious rashes, bruising, erythema noted to the patient's area of pain. Extremities- extremities are warm with minimal edema and palpable pulses. Lumbar-no significant tenderness to palpation noted in the lumbar spine and paraspinal musculature.? Pain is elicited with extension, and lateral rotation of the lumbar spine. Range of motion is slightly diminished with these motions due to pain. Facet loading maneuvers are positive bilaterally and do appear to be concordant with the patient's normal complaints of pain.? Coordination remains intact.? Gait remains non-antalgic. Results Additional Findings Additional findings: If on a controlled substance or opioids, I have checked an [place] report on this patient and there are no aberrancies noted in the prescribing history.??If on a controlled substance or opioid a drug screen was completed and reviewed within the last year, and if there has not been a drug screen completed we ordered one today to monitor higher risk, state monitored pain medication use. As part of providing excellent, safe, comprehensive care, the following was completed at our patient's visit: 1. A medication reconciliation and review to ensure accurate knowledge of current/active medications, including asking our patients to inform us about any [id number] medications or herbal remedies/nutritional supplements/alternative remedies. 2. A review to specifically ensure our patients have had annual screening for screening for depression, screening for tobacco use, and screening for unhealthy alcohol use. For concerning screenings had a discussion with the patient, provided patient education, and recommended follow-up with primary care provider when appropriate. If patient noted with a risk of falling, they received education on strength, gait, and balance training to prevent future risk of falling. Assessment and Plan Assessment and Plan (1) Lumbar spondylosis: Plan 63yof who presents for evaluation. failed conservative measures, as noted. imaging reviewed, as noted. given symptoms and imaging findings, prudent to attempt diagnostic bilateral l4-5, l5-s1 medial branch block under fluoroscopic guidance with intention of proceeding to radiofrequency ablation. she is in agreement. meds reviewed, no changes. follow up after procedure.
== END 2024-03-25 11:29 | disposition home or self-care (01) ==
LOC: PM 11:28
PROVIDERS: PCP Family Medicine; Visit Provider Nurse Practitioner
DX: M47.816 Spondylosis without myelopathy or radiculopathy, lumbar region (principal)
CPT/HCPCS: G0463

== ENCOUNTER 2024-04-06 07:02 | Day surgery (SDC) | payer MEDICARE, SELFPAY ==
--- OUTSIDE RECORDS SUMMARY | 2024-04-06 07:05 | XMS_ITS | CCD ---
Author Organization [facility] CliniSyut Care Team Providers Care Developmental Writing Instructor Name Role Phone Bulmaro Padron Primary Care Provider DR BULMARO PADRON Admitting Unavailable CLARA, DR CHAMBERLAIN Attending Unavailable HOY, DR CHAMBERLAIN Primary Care Unavailable HOY, DR CHAMBERLAIN Consulting Unavailable ZIEBER, DR CLAUDY Guzmán Consulting Unavailable KARMAY, DR CHAMBERLAIN Admitting Unavailable HOY, DR CHAMBERLAIN Attending Unavailable HOY, DR CHAMBERLAIN Primary Care Unavailable HOY, DR CHAMBERLAIN Consulting Unavailable KARMAY, DR CHAMBERLAIN Admitting Unavailable HOY, DR CHAMBERLAIN Attending Unavailable HOY, DR CHAMBERLAIN Primary Care Unavailable HOY, DR CHAMBERLAIN Consulting Unavailable HOY, DR CHAMBERLAIN Admitting Unavailable HOY, DR CHAMBERLAIN Attending Unavailable HOY, DR CHAMBERLAIN Primary Care Unavailable HOY, DR CHAMBERLAIN Consulting Unavailable ZIEBER, DR CLAUDY Guzmán Consulting Unavailable CLARA, DR CHAMBERLAIN Admitting Unavailable HOY, DR CHAMBERLAIN Attending Unavailable HOY, DR CHAMBERLAIN Primary Care Unavailable HOY, DR CHAMBERLAIN Consulting Unavailable ZIEBER, DR CLAUDY Guzmán Consulting Unavailable CLARA, DR CHAMBERLAIN Admitting Unavailable HOKaren, DR CHAMBERLAIN Attending Unavailable CLARA, DR CHAMBERLAIN Primary Care Unavailable CLARA, DR CHAMBERLAIN Consulting Unavailable Bulmaro Padron MD Primary Care Provider GABBIE WHITE Referring Unavailable BULMARO PADRON Primary Care Unavailable JORDYN EATON Attending Unavailable BULMARO PADRON Primary Care Unavailable BULMARO PADRON Primary Care Unavailable ARMIDA AGEE Referring Unavailable BULMARO PADRON Primary Care Unavailable Aayush MENDOZA Attending Unavailable Bulmaro Padron Referring Unavailable Sam DAVILA, Akira Girard Attending Unavailable Sam DAVILA, Akira Girard Attending Unavailable Allergies Allergy Classification Reported Allergen(s) Allergy Type Date of Onset Reaction(s) Facility (1 source) Bee/Wasp/Ant venom; Translations: [Bee Stings] Propensity to adverse reactions (disorder) [facility] Repository (1 source) No Known Medication Allergies; Translations: [No Known Medication Allergies] Propensity to adverse reactions (disorder) [facility] Medications Current Medications Medication Drug [...] stone; Translations: [Calculus of ureter] Onset: 01-12-20 Episodic Congestive heart failure; nonhypertensive (1 source) [...] for choosing us for your care. Normal [facility] RAD - CT Reporton 05-23-2023 RAD - CT Report [id number] [facility] Patient Letter FTMCon 2022 Patient Letter [facility] May 16, 2023 YAS KURTZ [address] [place] [address] : 1960 Dear Ms. Kurtz, Thank you for choosing [facility] for your healthcare needs. Your consultation appointment with Dr Aayush Mendoza is scheduled for 05/28/23 at 10am. We are located in the [place] [address] building, 2nd floor, [address]. A map is enclosed. Please bring your insurance card, a photo ID, and any co-pay you are responsible for to this first appointment. If you have any questions, please call us at [phone]. We look forward to seeing you soon. Sincerely, [place] [address], [address] [place] [address]. [place] [address] [facility] Consultation Noteon 05-01-20 23 Consultation Note [id number] [facility] Physician Referralon 023 Physician Referral [id number] [facility] Cult,Urineon 04-03-2023 Cult,Urine Specimen Description .CLEAN CATCH URINE Culture NO SIGNIFICANT GROWTH Report Status FINAL 04/03/[address] [facility] Comment on above: Performed By: #### B C #### [facility] [address] [place] [address] Dr. [place], [place] [phone] Produce Manager: Stu Baires MD Trichomonas/Wet Prepon 04-02 Trichomonas/Wet Prep Specimen Description .VAGINA Direct Exam NO YEAST OBSERVED NO TRICHOMONAS SEEN NO CLUE CELLS SEEN Report Status FINAL 04/02/[address] [facility] Comment on above: Performed By: #### W P #### [facility] [address] [place] [address] Produce Manager: Stu Baires MD Cult,Urineon 02-03-2023 Cult,Urine Specimen Description .CLEAN CATCH URINE Culture NO SIGNIFICANT GROWTH Report Status FINAL 02/02/2023 [facility] Comment on above: Performed By: #### U RC #### [facility] [address] [place] [address] Produce Manager: Victor Manuel Be MD [facility] [address] [place] [address] Produce Manager: Stu Baires MD Culture, Urineon 02-02-2023 Microorganism identified Cx Nom (Unsp spec) [facility] Specimen Description .CLEAN CATCH URINE [facility] CT ABDOMEN PELVIS WO CONTRAS Ton [...] Ar Graves MD 02/01/[address] [facility] CBC with Auto Differentialon 01-10-2023 Basophils (Bld) [#/Vol] 0.03 10*3/uL [facility] Basophils/100 WBC (Bld) 0 % 0 - 2 % [facility] Eosinophils (Bld) [#/Vol] 0.03 10*3/uL [facility] Eosinophils/100 WBC (Bld) 0 % Low 1 - 4 % [facility] Erythrocyte distribution width (RBC) [Ratio] 12.6 % 11.8 - 14.4 % [facility] Hematocrit (Bld) [Volume fraction] 43.5 % 36.3 - 47.1 % [facility] Hemoglobin (Bld) [Mass/Vol] 14.4 g/dL 11.9 - 15.1 g/dL [facility] Immature granulocytes (Bld) [#/Vol] [facility] Immature granulocytes/100 WBC (Bld) 0 % 0 [facility] Interpretation and review of laboratory results Abnormal [facility] Lymphocytes/100 WBC (Bld) 11 % Low 24 - 43 % [facility] Lymphocytes/100 WBC (Bld) 0.90 % Low [facility] MCH (RBC) [Entitic mass] 31.5 pg 25.2 - 33.5 pg [facility] MCHC (RBC) [Mass/Vol] 33.1 g/dL 28.4 - 34.8 g/dL [facility] MCV (RBC) [Entitic vol] 95.2 fL 82.6 - 102.9 fL [facility] Monocytes/100 WBC (Bld) 5 % 3 - 12 % [facility] Monocytes/100 WBC (Bld) 0.44 % [facility] Neutrophils/100 WBC (Bld) 84 % High 36 - 65 % [facility] Nucleated RBC/100 WBC (Bld) [Ratio] 0.0 % 0.0 per 100 WBC [facility] Platelet mean volume (Bld) [Entitic vol] 10.8 fL 8.1 - 13.5 fL [facility] Platelets (Bld) [#/Vol] 210 10*3/uL [facility] RBC (Bld) [#/Vol] 4.57 10*6/uL 3.95 - 5.1 1 m/uL [facility] Segmented neutrophils/100 WBC (Bld) 7.13 % [facility] WBC other (Bld) [#/Vol] 8.6 [facility] CBC with Diffon 01-10-2023 Abs. Basophil 0.03 k/uL Normal 0.00-0.20 [facility] Comment on above: Performed By: #### C DP, CP #### [facility] [address] [place] [address] [place] [address] Produce Manager: Stu Baires MD Abs.Imm.Granulocyte <0.03 Normal 0.00-0.[address] [facility] Comment on above: Performed By: #### C DP, CP #### [address] [place] [address] Produce Manager: Stu Baires MD Abs.Neutrophil (Seg) 7.13 k/uL Normal 1.50-8.[address] [facility] Comment on above: Performed By: #### C DP, CP #### [address] [place], [place] [phone] Produce Manager: Stu Baires MD Basophils/100 WBC (Bld) 0 % Normal 0-[address] [facility] Comment on above: Performed By: #### C DP, CP #### [address] [place], [place] [id number] Produce Manager: Stu Baires MD Eosinophils (Bld) [#/Vol] 0.03 10*3/uL Normal 0.00-0.[address] [facility] Comment on above: Performed By: #### C DP, CP #### [address] [place], [place] [phone] Produce Manager: Stu Baires MD Eosinophils/100 WBC (Bld) 0 % Low 1-[address] [facility] Comment on above: Performed By: #### C DP, CP #### [facility] [address] [place], [place] [phone] Produce Manager: Stu Baires MD Erythrocyte distribution width (RBC) [Ratio] 12.6 % Normal 11.8-14.[address] [facility] Comment on above: Performed By: #### C DP, CP #### [facility] [address] [place], [facility]83 Produce Manager: Stu Baires MD Hematocrit (Bld) [Volume fraction] 43.5 % Normal 36.3-47.[address] [facility] Comment on above: Performed By: #### C DP, CP #### [address] [place], [facility]83 Produce Manager: Stu Baires MD Hemoglobin (Bld) [Mass/Vol] 14.4 g/dL Normal 11.9-15.[address] [facility] Comment on above: Performed By: #### C DP, CP #### [address] [place], [place] [id number] Produce Manager: Stu Baires MD Immature granulocytes/100 WBC (Bld) 0 % Normal [address] [facility] Comment on above: Performed By: #### C DP, CP #### [address] [place], [place] [address] Produce Manager: Stu Baires MD Lymphocytes (Bld) [#/Vol] 0.90 10*3/uL Low 1.10-3.[address] [facility] Comment on above: Performed By: #### C DP, CP #### [facility] [address] [place] [address] Produce Manager: Stu Baires MD Lymphocytes/100 WBC (Bld) 11 % Low 24-[address] [facility] Comment on above: Performed By: #### C DP, CP #### [facility] [address] [place] [address] Dr. [place], [place] [phone] Produce Manager: Stu Baires MD MCH (RBC) [Entitic mass] 31.5 pg Normal 25.2-33.[address] [facility] Comment on above: Performed By: #### C DP, CP #### [address] [place], [place] [phone] Produce Manager: Stu Baires MD MCHC (RBC) [Mass/Vol] 33.1 g/dL Normal 28.4-34.[address] [facility] Comment on above: Performed By: #### C DP, CP #### [address] [place], [facility]83 Produce Manager: Stu Baires MD MCV (RBC) [Entitic vol] 95.2 fL Normal 82.6-102.[address] [facility] Comment on above: Performed By: #### C DP, CP #### [address] [place], [facility]83 Produce Manager: Stu Baires MD Monocytes (Bld) [#/Vol] 0.44 10*3/uL Normal 0.10-1.[address] [facility] Comment on above: Performed By: #### C DP, CP #### [address] [place], [place] [phone] Produce Manager: Stu Baires MD Monocytes/100 WBC (Bld) 5 % Normal 3-[address] [facility] Comment on above: Performed By: #### C DP, CP #### [address] [place], [place] [id number] Produce Manager: Stu Baires MD Neutrophil (Seg) 84 % High 36-65 [facility] Comment on above: Performed By: #### C DP, CP #### [address] [place], [place] [phone] Produce Manager: Stu Baires MD NRBC Automated 0.0 per 100 WBC Normal 0.[address] [facility] Comment on above: Performed By: #### C DP, CP #### [facility] [address] [place], [place] [phone] Produce Manager: Stu Baires MD Platelet mean volume (Bld) [Entitic vol] 10.8 fL Normal 8.1-13.[address] [facility] Comment on above: Performed By: #### C DP, CP #### [facility] [address] [place], [place] [phone] Produce Manager: Stu Baires MD Platelets (Bld) [#/Vol] 210 10*3/uL Normal 138-[address] [facility] Comment on above: Performed By: #### C DP, CP #### [address] [place] [address] Produce Manager: Stu Baires MD RBC (Bld) [#/Vol] 4.57 10*6/uL Normal 3.95-5.[address] [facility] Comment on above: Performed By: #### C DEMETRIO, CP #### [address] [place] [address] Produce Manager: Stu Baires MD WBC (Bld) [#/Vol] 8.6 10*3/uL Normal 3.5-11.[address] [facility] Comment on above: Performed By: #### C DP, CP #### [facility] [address] [place] [address] Produce Manager: Stu Baires MD [facility] Albumin [Mass/Vol] 4.3 g/dL 3.5 - 5.2 g/dL [facility] Albumin/Globulin [Mass ratio] 1.4 {ratio} 1.0 - 2.5 [facility] ALP [Catalytic activity/Vol] 97 U/L 35 - 104 U/L [facility] ALT [Catalytic activity/Vol] 29 U/L 5 - 33 U/L [facility] Anion gap [Moles/Vol] 8 mmol/L Low 9 - 17 mmol/L [facility] AST [Catalytic activity/Vol] 25 U/L NINF - 32 U/L [facility] Bilirubin [Mass/Vol] 0.3 mg/dL 0.3 - 1.2 mg/dL [facility] Calcium [Mass/Vol] 9.3 mg/dL 8.6 - 10. 4 mg/dL [facility] Chloride [Moles/Vol] 105 mmol/L 98 - 107 mmol/L [facility] CO2 [Moles/Vol] 25 mmol/L 20 - 31 mmol/L [facility] Creatinine [Mass/Vol] 0.51 mg/dL 0.50 - 0.90 mg/dL [facility] GFR/1.73 sq M.predicted MDRD (S/P/Bld) [Vol rate/Area] - PINF [facility] Comment on above: These results are not [...] 140 mg/dL High 70 - 99 mg/dL [facility] Interpretation and review of laboratory results Abnormal [facility] Potassium [Moles/Vol] 4.3 mmol/L 3.7 - 5.3 mmol/L [facility] Protein [Mass/Vol] 7.4 g/dL 6.4 - 8.3 g/dL [facility] Sodium [Moles/Vol] 138 mmol/L 135 - 144 mmol/L [facility] Urea nitrogen [Mass/Vol] 13 mg/dL 8 - 23 mg/dL [facility] Urea nitrogen/Creatinine [Mass ratio] 25 mg/mg High 9 - 20 [facility] CT ABDOMEN PELVIS WO CONTRAS Ton [...] Enrico Armstrong MD 01/10/[address] [facility] CT ABDOMEN PELVIS WO CONTRAS T Additional Contrast? Noneon 01-10-2023 1. 2 mm stone at the right ureterovesical junction with mild hydroureteronephrosis. 2. 1.6 cm left adrenal nodule unchanged from 2018 compatible with a benign adenoma. No follow-up recommended. [facility] EXAMINATION: CT OF THE ABDOMEN [...] No acute osseous or soft tissue abnormality. [facility] Enrico Armstrong MD - 01/10/2023 [...] with a benign adenoma. No follow-up recommended. [facility] Radiology Study observation (narrative) [facility] CT ABDOMEN PELVIS WO CONTRAS T Additional Contrast? NoneOrdered By: Enrico Armstrong on 01-10-2023 [facility] Work Phone: Comp Metabolic Profon 2022 Albumin [Mass/Vol] 4.3 g/dL Normal 3.5-5.[address] [facility] Comment on above: Performed By: #### B C #### [facility] [address] [place] [address] Dr. [place], [place] [phone] Produce Manager: Stu Baires MD Albumin/Glob Ratio 1.4 Normal 1.0-2.[address] [facility] Comment on above: Performed By: #### B C #### [facility] [address] [place], [place] [phone] Produce Manager: Stu Baires MD Alkaline Phos 97 U/L Normal 35-104 [facility] Comment on above: Performed By: #### B C #### [facility] [address] [place], [place] [phone] Produce Manager: Stu Baires MD ALT [Catalytic activity/Vol] 29 U/L Normal 5-[address] [facility] Comment on above: Performed By: #### B C #### [facility] [address] [place], [place] [phone] Produce Manager: Stu Baires MD Anion gap [Moles/Vol] 8 mmol/L Low 9-[address] [facility] Comment on above: Performed By: #### B C #### [facility] [address] [place], [place] [phone] Produce Manager: Stu Baires MD AST [Catalytic activity/Vol] 25 U/L Normal <[address] [facility] Comment on above: Performed By: #### B C #### [facility] [address] [place], [place] [phone] Produce Manager: Stu Baires MD Bilirubin [Mass/Vol] 0.3 mg/dL Normal 0.3-1.[address] [facility] Comment on above: Performed By: #### B C #### [facility] [address] [place], [place] [phone] Produce Manager: Stu Baires MD BUN/CRE Ratio 25 High 9-20 [facility] Comment on above: Performed By: #### B C #### [facility] [address] [place] [address] Produce Manager: Stu Baires MD Calcium [Mass/Vol] 9.3 mg/dL Normal 8.6-10.[address] [facility] Comment on above: Performed By: #### B C #### [facility] [address] [place] [phone] Produce Manager: Stu Baires MD Chloride [Moles/Vol] 105 mmol/L Normal 98-[address] [facility] Comment on above: Performed By: #### B C #### [facility] [address] [place] [address] Produce Manager: Stu Baires MD CO2 [Moles/Vol] 25 mmol/L Normal 20-31 [facility] Comment on above: Performed By: #### B C #### [facility] [address] [place] [address] Produce Manager: Stu Baires MD Creatinine [Mass/Vol] 0.51 mg/dL Normal 0.50-0.[address] [facility] Comment on above: Performed By: #### B C #### [facility] [address] [place] [address] Produce Manager: Stu Baires MD GFR/1.73 sq M.predicted among non-blacks MDRD (S/P/Bld) [Vol rate/Area] mL/min/{1.73_m2} Normal >[address] [facility] Comment on above: Result Comment: These [...] secretion. Performed By: #### B C #### [facility] [address] [place] [address] Produce Manager: Stu Baires MD Glucose [Mass/Vol] 140 mg/dL High 70-[address] [facility] Comment on above: Performed By: #### B C #### [facility] [address] [place] [address] Produce Manager: Stu Baires MD Potassium [Moles/Vol] 4.3 mmol/L Normal 3.7-5.[address] [facility] Comment on above: Performed By: #### B C #### [facility] [address] [place] [address] Produce Manager: Stu Baires MD Protein [Mass/Vol] 7.4 g/dL Normal 6.4-8.[address] [facility] Comment on above: Performed By: #### B C #### [facility] [address] [place] [address] Produce Manager: Stu Baires MD Sodium [Moles/Vol] 138 mmol/L Normal 135-[address] [facility] Comment on above: Performed By: #### B C #### [facility] [address] [place], [place] [phone] Produce Manager: Stu Baires MD Urea nitrogen [Mass/Vol] 13 mg/dL Normal 8-[address] [facility] Comment on above: Performed By: #### B C #### [facility] [address] [place] [address] Produce Manager: Stu Baires MD Microscopic Urinalysison Bacteria LM Ql (Urine sed) TRACE Abnormal None [facility] Epithelial cells LM.HPF (Urine sed) [#/Area] 0 TO 2 [facility] Interpretation and review of laboratory results Abnormal [facility] RBC LM.HPF (Urine sed) [#/Area] 0 TO 2 [facility] WBC LM.HPF (Urine sed) [#/Area] 10 TO 20 [facility] Urinalysison 01-10-2023 Bilirubin Ql (U) Negative NEGATIVE [facility] Clarity (U) Clear Clear [facility] Color (U) Yellow Yellow [facility] Glucose Test strip (U) [Mass/Vol] Negative NEGATIVE [facility] Hemoglobin Auto test strip Ql (U) Negative NEGATIVE [facility] Interpretation and review of laboratory results Abnormal [facility] Ketones (U) [Mass/Vol] Negative NEGATIVE [facility] Leukocyte esterase Test strip Ql (U) SMALL Abnormal NEGATIVE [facility] Nitrite Ql (U) Negative NEGATIVE [facility] pH (U) 5.5 [pH] 5.0 - 9.0 [facility] Protein (U) [Mass/Vol] Negative NEGATIVE [facility] Specific gravity (U) [Rel density] High 1.010 - 1.020 [facility] Urobilinogen Qn (U) Normal Normal [facility] Urinalysis, Routineon 2022 Bilirubin, SemiQt,Ur Negative Normal NEG [facility] Comment on above: Performed By: #### B C #### [facility] [address] [place] [address] Produce Manager: Stu Baires MD Blood, Urine Negative Normal [facility] Comment on above: Performed By: #### B C #### [facility] [address] [place] [address] Produce Manager: Stu Baires MD Clarity (U) Clear Normal CLEAR [facility] Comment on above: Performed By: #### B C #### [facility] [address] [place] [address] Produce Manager: Stu Baires MD Color (U) Yellow Normal YEL [facility] Comment on above: Performed By: #### B C #### [facility] [address] [place] [address] Produce Manager: Stu Baires MD Glucose Ql (U) Negative Normal NEG [facility] Comment on above: Performed By: #### B C #### [facility] [address] [place], [place] [phone] Produce Manager: Stu Baires MD Ketones Ql (U) Negative [facility] Comment on above: Performed By: #### B C #### [facility] [address] [place], [facility]83 Produce Manager: Stu Baires MD Leukocyte esterase Test strip Ql (U) SMALL Abnormal NEG [facility] Comment on above: Performed By: #### B C #### [facility] [address] [place] [address] Dr[place], [place] [phone] Produce Manager: Stu Baires MD Nitrite,Ur Negative Normal NEG [facility] Comment on above: Performed By: #### B C #### [facility] [address] [place] [address] Dr. [place], [facility]83 Produce Manager: Stu Baires MD PH,Ur 5.5 Normal 5.0-9.[address] [facility] Comment on above: Performed By: #### B C #### [facility] [address] [place] [address] [place], [place] [id number] Produce Manager: Stu Baires MD Protein Ql (U) Negative Normal NEG [facility] Comment on above: Performed By: #### B C #### [facility] [address] [place], [facility]83 Produce Manager: Stu Baires MD Spec. [place],Ur >1.030 High 1.010-1.020 [facility] Comment on above: Performed By: #### B C #### [facility] [address] [place] [address] Dr[place], [place] [phone] Produce Manager: Stu Baires MD Urobilinogen,Ur Normal Normal NORM [facility] Comment on above: Performed By: #### B C #### [facility] [address] [place], [place] [phone] Produce Manager: Stu Baires MD Urinalysis,Microon 3 Bacteria TRACE Abnormal NONE [facility] Comment on above: Performed By: #### B C #### [facility] [address] [place], [place] [phone] Produce Manager: Stu Baires MD Epithelial cells LM Ql (Urine sed) 0 TO 2 Normal 0-[address] [facility] Comment on above: Performed By: #### B C #### [facility] [address] [place], [place] [phone] Produce Manager: Stu Baires MD Urine RBC's 0 TO 2 Normal 0-[address] [facility] Comment on above: Performed By: #### B C #### [facility] [address] [place], [place] [phone] Produce Manager: Stu Baires MD Urine WBC's 10 TO 20 Normal 0-[address] [facility] Comment on above: Performed By: #### B C #### [facility] [address] [place] [address] [place] [address] Produce Manager: Stu Baires MD Cult, Bloodon 10-14-2022 Cult, Blood Specimen Description .BLOOD Special Requests 10ML LHAND Culture NO GROWTH 5 DAYS Report Status FINAL 10/14/2022 [facility] Comment on above: Performed By: #### B C #### [facility] [address] [place] [address] Produce Manager: Stu Baires MD Cult,Bloodon 10-14-2022 Cult,Blood Specimen Description .BLOOD Special Requests 14ml rfa Culture NO GROWTH 5 DAYS Report Status FINAL 10/14/2022 [facility] Comment on above: Performed By: #### B C #### [facility] [address] [place] [address] Produce Manager: Stu Baires MD CBC with Diffon 10-09-2022 Abs. Basophil 0.03 k/uL Normal 0.00-0.20 [facility] Comment on above: Performed By: #### C P, CDP #### [address] [place] [address] Produce Manager: Stu Baires MD Abs.Imm.Granulocyte <0.03 Normal 0.00-0.[address] [facility] Comment on above: Performed By: #### C P, CDP #### [address] [place] [address] Produce Manager: Stu Baires MD Abs.Neutrophil (Seg) 2.53 k/uL Normal 1.50-8.[address] [facility] Comment on above: Performed By: #### C P, CDP #### [address] [place], [place] [id number] Produce Manager: Stu Baires MD Basophils/100 WBC (Bld) 1 % Normal 0-[address] [facility] Comment on above: Performed By: #### C P, CDP #### [address] [place], [place] 1998183 Produce Manager: Stu Baires MD Eosinophils (Bld) [#/Vol] 0.06 10*3/uL Normal 0.00-0.[address] [facility] Comment on above: Performed By: #### C P, CDP #### [address] [place] [address] Produce Manager: Stu Baires MD Eosinophils/100 WBC (Bld) 2 % Normal 1-[address] [facility] Comment on above: Performed By: #### C P, CDP #### [address] [place], [place] [id number] Produce Manager: Stu Baires MD Erythrocyte distribution width (RBC) [Ratio] 13.0 % Normal 11.8-14.[address] [facility] Comment on above: Performed By: #### C P, CDP #### [facility] [address] [place], [place] [id number] Produce Manager: Stu Baires MD Hematocrit (Bld) [Volume fraction] 38.9 % Normal 36.3-47.[address] [facility] Comment on above: Performed By: #### C P, CDP #### [address] [place], [facility]83 Produce Manager: Stu Baires MD Hemoglobin (Bld) [Mass/Vol] 13.2 g/dL Normal 11.9-15.[address] [facility] Comment on above: Performed By: #### C P, CDP #### [address] [place], [facility]83 Produce Manager: Stu Baires MD Immature granulocytes/100 WBC (Bld) 1 % High [address] [facility] Comment on above: Performed By: #### C P, CDP #### [address] [place], [facility]83 Produce Manager: Stu Baires MD Lymphocytes (Bld) [#/Vol] 0.71 10*3/uL Low 1.10-3.[address] [facility] Comment on above: Performed By: #### C P, CDP #### [address] [place], [place] [address] Produce Manager: Stu Baires MD Lymphocytes/100 WBC (Bld) 18 % Low 24-[address] [facility] Comment on above: Performed By: #### C P, CDP #### [address] [place], [facility]83 Produce Manager: Stu Baires MD MCH (RBC) [Entitic mass] 32.0 pg Normal 25.2-33.[address] [facility] Comment on above: Performed By: #### C P, CDP #### [address] [place], [place] [id number] Produce Manager: Stu Baires MD MCHC (RBC) [Mass/Vol] 33.9 g/dL Normal 28.4-34.[address] [facility] Comment on above: Performed By: #### C P, CDP #### [address] [place], [place] 6511283 Produce Manager: Stu Baires MD MCV (RBC) [Entitic vol] 94.2 fL Normal 82.6-102.[address] [facility] Comment on above: Performed By: #### C P, CDP #### [address] [place], [place] 5762083 Produce Manager: Stu Baires MD Monocytes (Bld) [#/Vol] 0.56 10*3/uL Normal 0.10-1.[address] [facility] Comment on above: Performed By: #### C P, CDP #### [address] [place], [place] 5670483 Produce Manager: Stu Baires MD Monocytes/100 WBC (Bld) 14 % High 3-[address] [facility] Comment on above: Performed By: #### C P, CDP #### [address] [place], [place] 3336083 Produce Manager: Stu Baires MD Neutrophil (Seg) 64 % Normal 36-65 [facility] Comment on above: Performed By: #### C P, CDP #### [facility] [address] [place] [address] Dr. [place], [place] [id number] Produce Manager: Stu Baires MD NRBC Automated 0.0 per 100 WBC Normal 0.[address] [facility] Comment on above: Performed By: #### C P, CDP #### [address] [place], [place] 5477683 Produce Manager: Stu Baires MD Platelet mean volume (Bld) [Entitic vol] 11.1 fL Normal 8.1-13.[address] [facility] Comment on above: Performed By: #### C P, CDP #### [facility] [address] [place], [place] [id number] Produce Manager: Stu Baires MD Platelets (Bld) [#/Vol] 221 10*3/uL Normal 138-[address] [facility] Comment on above: Performed By: #### C P, CDP #### [facility] [address] [place], [place] 0878983 Produce Manager: Stu Baires MD RBC (Bld) [#/Vol] 4.13 10*6/uL Normal 3.95-5.[address] [facility] Comment on above: Performed By: #### C P, CDP #### [address] [place], [place] [id number] Produce Manager: Stu Baires MD WBC (Bld) [#/Vol] 3.9 10*3/uL Normal 3.5-11.[address] [facility] Comment on above: Performed By: #### C P, CDP #### [address] [place], [place] 0399583 Produce Manager: Stu Baires MD Comp Metabolic Profon 2022 Albumin [Mass/Vol] 3.4 g/dL Low 3.5-5.[address] [facility] Comment on above: Performed By: #### C P, CDP #### [address] [place], [place] [phone] Produce Manager: Stu Baires MD Albumin/Glob Ratio 1.2 Normal 1.0-2.[address] [facility] Comment on above: Performed By: #### C P, CDP #### [facility] [address] [place], [place] 0372383 Produce Manager: Stu Baires MD Alkaline Phos 108 U/L High 35-104 [facility] Comment on above: Performed By: #### C P, CDP #### [facility] [address] [place], [place] 5380483 Produce Manager: Stu Baires MD ALT [Catalytic activity/Vol] 30 U/L Normal 5-[address] [facility] Comment on above: Performed By: #### C P, CDP #### [facility] [address] [place], [place] 1068683 Produce Manager: Stu Baires MD Anion gap [Moles/Vol] 8 mmol/L Low 9-[address] [facility] Comment on above: Performed By: #### C P, CDP #### [facility] [address] [place], [place] 3039683 Produce Manager: Stu Baires MD AST [Catalytic activity/Vol] 29 U/L Normal <[address] [facility] Comment on above: Performed By: #### C P, CDP #### [facility] [address] [place], [place] 9247783 Produce Manager: Stu Baires MD Bilirubin [Mass/Vol] 0.5 mg/dL Normal 0.3-1.[address] [facility] Comment on above: Performed By: #### C P, CDP #### [facility] [address] [place], [place] 9271183 Produce Manager: Stu Baires MD BUN/CRE Ratio 18 Normal 9-20 [facility] Comment on above: Performed By: #### C P, CDP #### [facility] [address] [place], [place] 0315283 Produce Manager: Stu Baires MD Calcium [Mass/Vol] 8.4 mg/dL Low 8.6-10.[address] [facility] Comment on above: Performed By: #### C P, CDP #### [facility] [address] [place], [place] 2319483 Produce Manager: Stu Baires MD Chloride [Moles/Vol] 105 mmol/L Normal 98-[address] [facility] Comment on above: Performed By: #### C P, CDP #### [facility] [address] [place] [address] Produce Manager: Stu Baires MD CO2 [Moles/Vol] 23 mmol/L Normal 20-31 [facility] Comment on above: Performed By: #### C P, CDP #### [facility] [address] [place] [address] Produce Manager: Stu Baires MD Creatinine [Mass/Vol] 0.49 mg/dL Low 0.50-0.[address] [facility] Comment on above: Performed By: #### C P, CDP #### [facility] [address] [place] [address] Produce Manager: Stu Baires MD GFR/1.73 sq M.predicted among non-blacks MDRD (S/P/Bld) [Vol rate/Area] mL/min/{1.73_m2} Normal >[address] [facility] Comment on above: Result Comment: These [...] Performed By: #### C P, CDP #### [facility] [address] [place] [address] Produce Manager: Stu Baires MD Glucose [Mass/Vol] 102 mg/dL High 70-[address] [facility] Comment on above: Performed By: #### C P, CDP #### [facility] [address] [place] [address] Produce Manager: Stu Baires MD Potassium [Moles/Vol] 3.6 mmol/L Low 3.7-5.[address] [facility] Comment on above: Performed By: #### C P, CDP #### [facility] [address] [place], [place] [phone] Produce Manager: Stu Baires MD Protein [Mass/Vol] 6.2 g/dL Low 6.4-8.[address] [facility] Comment on above: Performed By: #### C P, CDP #### [facility] [address] [place], [place] 5453583 Produce Manager: Stu Baires MD Sodium [Moles/Vol] 136 mmol/L Normal 135-[address] [facility] Comment on above: Performed By: #### C P, CDP #### [address] [place], [place] 7221983 Produce Manager: Stu Baires MD Urea nitrogen [Mass/Vol] 9 mg/dL Normal 6-[address] [facility] Comment on above: Performed By: #### C P, CDP #### [address] [place], [place] 8380883 Produce Manager: Stu Baires MD Lactic Acidon 8 Lactate [Moles/Vol] 1.0 mmol/L Normal 0.5-2.[address] [facility] Comment on above: Performed By: #### L ACTIC #### [facility] [address] [place] [address] Dr. [place], [place] 6167483 Produce Manager: Stu Baires MD Urinalysis, Routineon 2022 Bilirubin, SemiQt,Ur Negative Normal NEG [facility] Comment on above: Performed By: #### U MICAO, UA #### [address] [place], [place] 7583183 Produce Manager: Stu Baires MD Blood, Urine Negative Normal NEG [facility] Comment on above: Performed By: #### U MICAO, UA #### [facility] [address] [place], [place] 1665083 Produce Manager: Stu Baires MD Clarity (U) Clear Normal CLEAR [facility] Comment on above: Performed By: #### U MICAO, UA #### [facility] [address] [place] [address] Dr. [place], [place] 6659283 Produce Manager: Stu Baires MD Color (U) Yellow Normal YEL [facility] Comment on above: Performed By: #### U MICAO, UA #### [facility] [address] [place] [address] Dr. [place], [place] [phone] Produce Manager: Stu Baires MD Glucose Ql (U) Negative Normal NEG [facility] Comment on above: Performed By: #### U MICAO, UA #### [facility] [address] [place] [address] Dr. [place], [place] 1070883 Produce Manager: Stu Baires MD Ketones Ql (U) Negative Normal NEG [facility] Comment on above: Performed By: #### U MICAO, UA #### [address] [place], [place] 3898183 Produce Manager: Stu Baires MD Leukocyte esterase Test strip Ql (U) TRACE Abnormal NEG [facility] Comment on above: Performed By: #### U MICAO, UA #### [facility] [address] [place] [address] Dr. [place], [place] 1179583 Produce Manager: Stu Baires MD Nitrite,Ur Negative Normal NEG [facility] Comment on above: Performed By: #### U MICAO, UA #### [address] [place] [address] Produce Manager: Stu Baires MD PH,Ur 6.0 Normal 5.0-9.[address] [facility] Comment on above: Performed By: #### U MICAO, UA #### [facility] [address] [place] [address] Dr. [place], [place] 1448483 Produce Manager: Stu Baires MD Protein Ql (U) 1+ Abnormal NEG [facility] Comment on above: Performed By: #### U TISHAO, UA #### [facility] [address] [place], [place] 7506683 Produce Manager: Stu Baires MD Spec. [place],Ur >1.030 High 1.010-1.020 [facility] Comment on above: Performed By: #### U TISHAO, UA #### [facility] [address] [place], [place] 3437783 Produce Manager: Stu Baires MD Urobilinogen,Ur Normal Normal NORM [facility] Comment on above: Performed By: #### U TISHAO, UA #### [facility] [address] [place] [address] Dr. [place], [place] [phone] Produce Manager: Stu Baires MD Urinalysis,Microon 3 Bacteria 2+ Abnormal NONE [facility] Comment on above: Performed By: #### U TISHAO, UA #### [address] [place], [place] [phone] Produce Manager: Stu Baires MD Epithelial cells LM Ql (Urine sed) 2 TO 5 Normal 0-[address] [facility] Comment on above: Performed By: #### U TISHAO, UA #### [facility] [address] [place] [address] Dr. [place], [place] 0763483 Produce Manager: Stu Baires MD Mucus Strands 1+ Abnormal NONE [facility] Comment on above: Performed By: #### U TISHAO, UA #### [facility] [address] [place], [place] 5869983 Produce Manager: Stu Baires MD Urine RBC's None Normal 0-[address] [facility] Comment on above: Performed By: #### U MICAO, UA #### [facility] [address] [place], [place] 7688083 Produce Manager: Stu Baires MD Urine WBC's 2 TO 5 Normal 0-[address] [facility] Comment on above: Performed By: #### U MICAO, UA #### [facility] [address] [place], [place] 8902183 Produce Manager: Stu Baires MD FREE T3on 06-19-2022 FREE T3 4.07 pg/mlL Critically high 2.18-3.98 [facility] Comment on above: Performed By: #### T 4, FT3, TSH ####[facility] [address] [place] [address]Dr. Vicenta Bryant T4on 06-19-2022 T4 [Mass/Vol] 7.70 ug/dL Normal 4.80-13.90 [facility] Comment on above: Performed By: #### T 4, FT3, TSH ####[facility] [address] [place] [address]Dr. Vicenta Bryant TSHon 06-19-2022 TSH 4.022 uIU/mL Critically high 0.358-3.740 [facility] Comment on above: Performed By: #### T 4, FT3, TSH ####[facility] [address] [place] [address]Dr. Vicenta Bryant FREE T3on 05-23-2022 FREE T3 3.87 pg/mlL Normal 2.18-3.98 [place] Comment on above: Performed By: #### T SH, FT3, T4 #### [facility] [address] [place] [address] [address] Vicenta Bryant T4on 05-23-2022 T4 [Mass/Vol] 7.00 ug/dL Normal 4.80-13.90 [facility] Comment on above: Performed By: #### T SH, FT3, T4 #### [facility] [address] [place] [address] [address] Vicenta Bryant TSHon 05-23-2022 TSH 4.402 uIU/mL Critically high 0.358-3.740 [facility] Comment on above: Performed By: #### T SH, FT3, T4 #### [facility] [address] [place], [place] [address] Dr. Vicenta Bryant MG MAMM DX FLAQUITA 3D FU CADon 0 03-28-2022 MG MAMM DX FLAQUITA 3D FU CAD Patient: YAS KURTZ Exam Date: 03/28/2022 : 1960 Gender:F Ordering : DR BULMARO PADRON . Admission #: [id number] Family : Order #: [id number] CLICK HERE TO VIEW EXAM RADIOLOGY REPORT [...] lung cancer at age 57. LOCATION: [facility] BREAST COMPOSITION: Almost entirely fatty. [...] Cobian M.D. on 03/28/2022 at 11:35 Normal [place] OCC BLD IMMUNO SCREENon 03-15 OCCULT BLOOD Negative Normal NEGATIVE [place] Comment on above: Performed By: #### O BSCRN #### [facility] [address] [place], [place] [address] Dr. Vicenta Bryant INSULINon 08-24-2022 Insulin 10.8 uIU/mL Normal 2.6-24.9 [facility] Comment on above: Performed By: #### I NSULIN #### [facility] [address] [place], [place] [address] Dr. Vicenta Bryant T4, T3U, FTI LABCORPon 03-07 Free Thyroxine Index 1.9 Normal 1.2-4.9 [facility] Comment on above: Performed By: #### T HYLC ####[facility] [address] [place], [place] [address]BeDr. Vicenta Bryant T3 Uptake 25 % Normal 24-39 [facility] Comment on above: Performed By: #### T HYLC ####[facility] [address] [place], [place] [address]ChDr. Vicenta Bryant T4 [Mass/Vol] 7.6 ug/dL Normal 4.5-12.0 [facility] Comment on above: Performed By: #### T HYLC ####[facility] [address] [place], [place] [address]BxDr. Vicenta Bryant VIT D 25-OH LABCORPon 2021 Vitamin D, 25-Hydroxy 24.3 ng/mL Critically low 30.0-100.0 [facility] Comment on above: Result Comment: Susi min D deficiency has been defined by the [place] of Medicine and an Endocrine Society practice guideline as a level of serum 25-OH vitamin D less than 20 ng/mL (1,2). The Endocrine Society went on to further define vitamin D insufficiency as a level between 21 and 29 ng/mL (2). 1. IOM ([place] of Medicine). 2010. Dietary reference intakes for calcium and D. [place]: The National Academies Press. 2. Dea MF, Angelika NC, Nae-Huber SHEARER, et al. Evaluation, treatment, and prevention of vitamin D deficiency: an Endocrine Society clinical practice guideline. JCEM. 2010; 96(7):1911-30. Performed By: #### V ITADLC ####[facility] [address] [place] [address]Dr. Vicenta Bryant CBC AUTO DIFFon 03-06-2022 BASO # 0.0 103/ul Normal 0.0-0.1 [place] Comment on above: Performed By: #### C BC #### [facility] [address] [place] [address] Dr. Vicenta Bryant Basophils/100 WBC (Bld) 0.6 % Normal 0.2-2.0 [place] Comment on above: Performed By: #### C BC #### [facility] [address] [place] [address] Dr. Vicenta Bryant EO # 0.1 103/ul Normal 0.0-0.7 [facility] Comment on above: Performed By: #### C BC #### [facility] [address] [place] [address] Dr. Vicenta Bryant Eosinophils/100 WBC (Bld) 1.1 % Normal 0.9-7.0 [place] Comment on above: Performed By: #### C BC #### [facility] [address] [place] [address] Dr. Vicenta Bryant Erythrocyte distribution width (RBC) [Ratio] 12.6 % Normal 11.0-15.0 [place] Comment on above: Performed By: #### C BC #### [facility] [address] [place] [address] Dr. Vicenta Bryant Hematocrit (Bld) [Volume fraction] 41.1 % Normal 36.0-48.0 [place] Comment on above: Performed By: #### C BC #### [facility] [address] [place] [address] Dr. Vicenta Bryant Hemoglobin (Bld) [Mass/Vol] 13.4 g/dL Normal 12.0-16.0 [facility] Comment on above: Performed By: #### C BC #### [facility] [address] [place] [address] Dr. Vicenta Bryant IG # 0.01 10e3/ul Normal 0.00-0.03 [place] Comment on above: Performed By: #### C BC #### [facility] [address] [place] [address] Dr. Vicenta Bryant IG % 0.2 % Normal 0.0-0.5 [place] Comment on above: Performed By: #### C BC #### [facility] [address] [place] [address] Dr. Vicenta Bryant LYMPH # 1.6 103/ul Normal 1.2-3.8 [place] Comment on above: Performed By: #### C BC #### [facility] [address] [place] [address] Dr. Vicenta Bryant Lymphocytes/100 WBC (Bld) 25.6 % Normal 20.5-60.0 [place] Comment on above: Performed By: #### C BC #### [facility] [address] [place] [address] Dr. Vicenta Bryant MANUAL DIFF REQ NO Normal [facility] Comment on above: Performed By: #### C BC #### [facility] [address] [place] [address] Dr. Vicenta Bryant MCH (RBC) [Entitic mass] 31.0 pg Normal 26.7-34.0 [place] Comment on above: Performed By: #### C BC #### [facility] [address] [place] [address] Dr. Vicenta Bryant MCHC (RBC) [Mass/Vol] 32.6 g/dL Normal 29.9-35.2 [place] Comment on above: Performed By: #### C BC #### [facility] [address] [place] [address] Dr. Vicenta Bryant MCV (RBC) [Entitic vol] 95.1 fL Normal 81.0-99.0 [place] Comment on above: Performed By: #### C BC #### [facility] [address] [place] [address] Dr. Vicenta Bryant MONO # 0.5 103/ul Normal 0.3-0.8 [place] Comment on above: Performed By: #### C BC #### [facility] [address] [place] [address] Dr. Vicenta Bryant Monocytes/100 WBC (Bld) 7.8 % Normal 1.7-12.0 [facility] Comment on above: Performed By: #### C BC #### [facility] [address] [place] [address] [address] Vicenta Bryant NEUT # 4.0 103/ul Normal 1.4-6.5 [place] Comment on above: Performed By: #### C BC #### [facility] [address] [place] [address] [address] Vicenta Bryant Neutrophils/100 WBC (Bld) 64.7 % Normal 43.0-75.0 [place] Comment on above: Performed By: #### C BC #### [facility] [address] [place] [address] [address] Vicenta Bryant Platelet mean volume (Bld) [Entitic vol] 10.8 fL Normal 9.5-13.5 [place] Comment on above: Performed By: #### C BC #### [facility] [address] [place] [address] [address] Vicenta Bryant PLT 210 103/ul Normal 150-450 [facility] Comment on above: Performed By: #### C BC #### [facility] [address] [place] [address] [address] Vicenta Bryant RBC 4.32 106/ul Normal 4.20-5.40 [place] Comment on above: Performed By: #### C BC #### [facility] [address] [place] [address] [address] Vicenta Bryant WBC 6.2 103/ul Normal 4.0-11.0 [place] Comment on above: Performed By: #### C BC #### [facility] [address] [place] [address] Dr. Vicenta Bryant GLYCOHEMOGLOBIN A1Con 2021 ADA RECOMMENDATION SEE BELOW Normal [facility] Comment on above: Result Comment: ADA RECOMMENDED LIMIT 4.0 - 6.0 ADA THERAPEUTIC TARGET < 7.0 ACTION SUGGESTED > 7.0 Performed By: #### A 1C #### [facility] [address] [place] [address] [address] Vicenta Bryant Glucose [Mass/Vol] 91 mg/dL Normal [facility] Comment on above: Performed By: #### A 1C #### [facility] [address] [place], [place] [address] Dr. Vicenta Bryant HbA1c (Bld) [Mass fraction] 4.8 % Normal 4.5-6.2 [place] Comment on above: Performed By: #### A 1C #### [facility] [address] [place], [place] [address] Dr. Vicenta Bryant IRONon 03-06-2022 Iron [Mass/Vol] 73.0 ug/dL Normal 50.0-170.0 [facility] Comment on above: Performed By: #### B 12FOL, IRON ####[facility] [address] [place], [place] [address]PyDr. Vicenta Bryant LIPID PROFILEon 03-06-2022 CHOL-HDL RATIO NORM SEE BELOW Normal [facility] Comment on above: Result Comment: 3.3 - 4.4 LOW RISK 4.4 - 7.1 AVERAGE RISK 7.1 - 11.0 MODERATE RISK >11.0 HIGH RISK Performed By: #### L IPID, TSH, CMP ####[facility] [address] [place], [place] [address]Zy. Vicenta Bryant Cholesterol [Mass/Vol] 134 mg/dL Normal <=200 [place] Comment on above: Performed By: #### L IPID, TSH, CMP ####[facility] [address] [place], [place] [address]Yt. Vicenta Bryant Cholesterol in HDL [Mass/Vol] 41 mg/dL Normal 40-60 [facility] Comment on above: Performed By: #### L IPID, TSH, CMP ####[facility] [address] [place], [place] [address]Bv. Vicenta Bryant Cholesterol in LDL [Mass/Vol] 81.2 mg/dL Normal [place] Comment on above: Performed By: #### L IPID, TSH, CMP ####[facility] [address] [place], [place] [address]Yz. Vicenta Bryant Cholesterol.total/C holesterol in HDL [Mass ratio] 3.3 {ratio} Normal [place] Comment on above: Performed By: #### L IPID, TSH, CMP ####[facility] [address] [place] [address]Dr. Vicenta Bryant HDL NORMAL > or = 60 mg/dl - LO W CARDIOVASCULAR RISK <40 mg/dl - HIGH CARDIOVASCULAR RISK Normal [place] Comment on above: Performed By: #### L IPID, TSH, CMP ####[facility] [address] [place] [address]Dr. Vicenta Bryant LDL CALC NORMAL SEE BELOW Normal [facility] Comment on above: Result Comment: <100 mg/dl OPTIMAL 100 - 129 mg/dl NEAR OR ABOVE OPTIMAL 130 - 159 mg/dl BORDERLINE HIGH 160 - 189 mg/dl HIGH >190 mg/dl VERY HIGH Performed By: #### L IPID, TSH, CMP ####[facility] [address] [place] [address]Dr. Vicenta Bryant Triglyceride [Mass/Vol] 59 mg/dL Normal <=150 [place] Comment on above: Performed By: #### L IPID, TSH, CMP ####[facility] [address]jra[address] [place] [address]Dr. Vicenta Bryant VLDL CALC 11.8 mg/dL Normal [place] Comment on above: Performed By: #### L IPID, TSH, CMP ####[facility] Rft[address]hdkom[address] [place] [address]Dr. Vicenta Bryant PROF 14(COMP METB)on 022 Albumin [Mass/Vol] 3.7 g/dL Normal 3.4-5.0 [facility] Comment on above: Performed By: #### L IPID, TSH, CMP ####[facility] Dpwhjgtwjv[address] [place] [address]Dr. Vicenta Bryant Albumin/Globulin [Mass ratio] 1.1 {ratio} Normal [place] Comment on above: Performed By: #### L IPID, TSH, CMP ####[facility] [address] [place] [address]Dr. Vicenta Bryant ALP [Catalytic activity/Vol] 115 U/L Normal 46-116 [place] Comment on above: Performed By: #### L IPID, TSH, CMP ####[facility] [address]vrowf[address] [place] [address]Dr. Vicenta Bryant ALT [Catalytic activity/Vol] 38 U/L Normal 14-59 [place] Comment on above: Performed By: #### L IPID, TSH, CMP ####[facility] Xvivfijthl[address] [place] [address]Dr. Vicenta Bryant Anion gap [Moles/Vol] 12.4 mmol/L Normal [place] Comment on above: Performed By: #### L IPID, TSH, CMP ####[facility] [address] [place], [place] [address]Dr. Vicenta Bryant AST [Catalytic activity/Vol] 27 U/L Normal 15-37 [place] Comment on above: Performed By: #### L IPID, TSH, CMP ####[facility] [address] [place], [place] [address]Dr. Vicenta Bryant Bilirubin [Mass/Vol] 0.3 mg/dL Normal 0.2-1.0 [place] Comment on above: Performed By: #### L IPID, TSH, CMP ####[facility] [address] [place], [place] [address]Dr. Vicenta Bryant Calcium [Mass/Vol] 8.9 mg/dL Normal 8.5-10.1 [facility] Comment on above: Performed By: #### L IPID, TSH, CMP ####[facility] Ev[address] [place], [place] [address]Dr. Vicenta Bryant Chloride [Moles/Vol] 104 mmol/L Normal 98-107 [facility] Comment on above: Performed By: #### L IPID, TSH, CMP ####[facility] [address] [place], [place] [address]Dr. Vicenta Bryant CO2 [Moles/Vol] 27.8 mmol/L Normal 21.0-32.0 [facility] Comment on above: Performed By: #### L IPID, TSH, CMP ####[facility] Edajhthrnm[address] [place] [address]Dr. Vicenta Bryant Creatinine [Mass/Vol] 0.53 mg/dL Critically low 0.55-1.02 [facility] Comment on above: Performed By: #### L IPID, TSH, CMP ####[facility] Qftbfszplt[address] [place] [address]Dr. Vicenta Bryant EGFR-AF BURMESE >60 Normal >=60 [facility] Comment on above: Performed By: #### L IPID, TSH, CMP ####[facility] [address]qrcgh[address] [place] [address]Dr. Vicenta Bryant EGFR-NON AF BURMESE >60 Normal >=60 [facility] Comment on above: Performed By: #### L IPID, TSH, CMP ####[facility] F[address] [place], [place] [address]Dr. Vicenta Bryant Globulin (S) [Mass/Vol] 3.3 g/dL Normal [facility] Comment on above: Performed By: #### L IPID, TSH, CMP ####[facility] [address] [place], [place] [address]Dr. Vicenta Bryant Glucose [Mass/Vol] 88 mg/dL Normal 74-106 [facility] Comment on above: Performed By: #### L IPID, TSH, CMP ####[facility] Lsutwvbfyn[address] [place] [address]Dr. Jocydawn Bryant Potassium [Moles/Vol] 4.4 mmol/L Normal 3.5-5.1 [facility] Comment on above: Performed By: #### L IPID, TSH, CMP ####[facility] Onyr[address]ok[address]ft[address] [place] [address]Dr. Vicenta Bryant Protein [Mass/Vol] 7.0 g/dL Normal 6.4-8.2 [facility] Comment on above: Performed By: #### L IPID, TSH, CMP ####[facility] [address] [place] [address]Dr. Vicenta Bryant Sodium [Moles/Vol] 139 mmol/L Normal 136-145 [facility] Comment on above: Performed By: #### L IPID, TSH, CMP ####[facility] [address]iz[address] [place] [id number]. Vicenta Bryant Urea nitrogen [Mass/Vol] 10.0 mg/dL Normal 7.0-18.0 [place] Comment on above: Performed By: #### L IPID, TSH, CMP ####[facility] [address]xq[address] [place] [id number]. Vicenta Manny Urea nitrogen/Creatinine [Mass ratio] 18.8 mg/mg Normal [place] Comment on above: Performed By: #### L IPID, TSH, CMP ####[facility] [address]fehbwc[address] [place] [address]Dr. Jocydawn Manny TSHon 03-06-2022 TSH 4.364 uIU/mL Critically high 0.358-3.740 [facility] Comment on above: Performed By: #### L IPID, TSH, CMP ####[facility] [address] [place] [id number]. Vicenta Bryant VIT B12 AND FOLATEon 022 Cobalamin (Vitamin B12) [Mass/Vol] 761.0 pg/mL Normal 193.0-986.0 [place] Comment on above: Performed By: #### B 12FOL, IRON ####[facility] [address] [place] [address]Dr. Vicenta Manny FOLATE 15.40 ng/mL Normal 8.60-58.90 [place] Comment on above: Performed By: #### B 12FOL, IRON ####[facility] [address]ktx[address] [place] [id number]. Vicenta Bryant MAMMO POST BIOPSY LEFTon MAMMO POST BIOPSY LEFT Patient: YAS KURTZ Exam Date: 07/25/2021 : 1960 Gender:F Ordering : DR BULMARO PADRON . Admission #: [id number] Family : Order #: [id number] CLICK HERE TO VIEW EXAM This report [...] Cobian M.D. on 08/03/2021 at 07:08 Normal [place] US VAC ASST BX BRST LT W CLI Aryan 07-25-2021 US VAC ASST BX BRST LT W CLIP Patient: YAS KURTZ Exam Date: 07/25/2021 : 1960 Gender:F Ordering : DR BULMARO PADRON . Admission #: [id number] Family : Order #: [id number] CLICK HERE TO VIEW EXAM This report [...] M.D. on 08/03/2021 at 07:07 Normal [facility] MG MAMM LT DIAG W CADon -0 MG MAMM LT DIAG W CAD Patient: YAS KURTZ Exam Date: 07/20/2021 : 1960 Gender:F Ordering : DR BULMARO PADRON . Admission #: [id number] Family : Order #: [id number] CLICK HERE TO VIEW EXAM RADIOLOGY REPORT [...] lung cancer at age 57. LOCATION: [facility] BREAST COMPOSITION: Almost entirely fatty. [...] M.D. on 07/20/2021 at 15:20 Normal [facility] US BREAST LEFT LIMITEDon US BREAST LEFT LIMITED Patient: YAS KURTZ Exam Date: 07/20/2021 : 1960 Gender:F Ordering : DR BULMARO PADRON . Admission #: [id number] Family : Order #: [id number] CLICK HERE TO VIEW EXAM RADIOLOGY REPORT [...] lung cancer at age 57. LOCATION: [facility] BREAST COMPOSITION: Almost entirely fatty. [...] Cobian M.D. on 07/20/2021 at 15:20 Normal [place] JOSE Antinuclear Antibodieson 08-08-2020 JOSE IFA Note 1 Normal . [facility] Comment on above: Order Comment: Speci men Comment: Test(s) 639719-Ewgl-Q7 COMMERCIAL PROPERTY ADMINISTRATOR (Fibrillarin)(RDL) Specimen Comment: was developed and its performance characteristics Specimen Comment: determined by [facility]. It has not been cleared or approved Specimen Comment: by the Food and Drug Administration. 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 [facility] Comment on above: Order Comment: Speci men Comment: Test(s) 460384-Ljpk-O3 COMMERCIAL PROPERTY ADMINISTRATOR (Fibrillarin)(RDL) Specimen Comment: was developed and its performance characteristics Specimen Comment: determined by [facility]. It has not been cleared or approved Specimen Comment: by the Food and Drug Administration. Specimen Comment: Test(s) 263369-Uugp-BW/Scl-75 Ab (RDL) Specimen Comment: was developed and its performance characteristics Specimen Comment: determined by [facility]. It has not been cleared or approved Specimen Comment: by the Food and Drug Administration. Result Comment: Nega tive <1:80 Borderline 1:80 Positive >1:80 Performed By: #### A NTIR, RNA POLYMR, HEP C, ANTI TH TO, HBCAB, PM-SCL ABS, U3 COMMERCIAL PROPERTY ADMINISTRATOR, HBSAG, HBSAB, JOSE #### [facility] , #### CRP, CK, CMP #### [facility] [address] Speckled Pattern 1:640 High . [facility] Comment on above: Order Comment: Speci men Comment: Test(s) 291433-Gxmj-M4 COMMERCIAL PROPERTY ADMINISTRATOR (Fibrillarin)(RDL) Specimen Comment: was developed and its performance characteristics Specimen Comment: determined by [facility]. It has not been cleared or approved Specimen Comment: by the Food and Drug Administration. Specimen Comment: Test(s) 786412-Jfqy-HQ/Scl-75 Ab (RDL) Specimen Comment: was developed and its performance characteristics Specimen Comment: determined by [facility]. It has not been cleared or approved Specimen Comment: by the Food and Drug Administration. Performed By: #### A NTIR, RNA POLYMR, HEP C, ANTI TH TO, HBCAB, PM-SCL ABS, U3 COMMERCIAL PROPERTY ADMINISTRATOR, HBSAG, HBSAB, JOSE #### [facility] , #### CRP, CK, CMP #### [facility] [address] [place] [address] [place] Anti-RNPon 08-08-2020 Anti-COMMERCIAL PROPERTY ADMINISTRATOR <0.2 Normal 0.0-0.9 [facility] Comment on above: Order Comment: Speci men Comment: Test(s) 652882-Fcxt-K9 COMMERCIAL PROPERTY ADMINISTRATOR (Fibrillarin)(RDL) Specimen Comment: was developed and its performance characteristics Specimen Comment: determined by [facility]. It has not been cleared or approved Specimen Comment: by the Food and Drug Administration. Specimen Comment: Test(s) 576723-Zvxt-IX/Scl-75 Ab (RDL) Specimen Comment: was developed and its performance characteristics Specimen Comment: determined by [facility]. It has not been cleared or approved Specimen Comment: by the Food and Drug Administration. Result Comment: Perf ormed at: - [facility] [address] [id number] Produce Manager: David Pace PhD, Phone: [phone] Performed By: #### A NTIR, RNA POLYMR, HEP C, ANTI TH TO, HBCAB, PM-SCL ABS, U3 COMMERCIAL PROPERTY ADMINISTRATOR, HBSAG, HBSAB, JOSE #### [facility] , #### CRP, CK, CMP #### [address] C-Reactive Proteinon CRP [Mass/Vol] 0.6 mg/dL Normal 0.0-1.0 [facility] Comment on above: Result Comment: PERF ORMED BY: [place] [address] PATHOLOGIST GRADING MACHINE OPERATOR BEAU JOHNSON M.D. Performed By: #### A NTIR, RNA POLYMR, HEP C, ANTI TH TO, HBCAB, PM-SCL ABS, U3 COMMERCIAL PROPERTY ADMINISTRATOR, HBSAG, HBSAB, JOSE #### [facility] , #### CRP, CK, CMP #### [address] Complement C3on 08-08-2020 Complement C3 125 mg/dL Normal 82-167 [facility] Comment on above: Result Comment: Perf ormed at: [address] [id number] Produce Manager: David Pace PhD, Phone: [phone] Performed By: #### A NTIR, RNA POLYMR, HEP C, ANTI TH TO, HBCAB, PM-SCL ABS, U3 COMMERCIAL PROPERTY ADMINISTRATOR, HBSAG, HBSAB, JOSE #### [facility] , #### CRP, CK, CMP #### [address] Complement C4on 08-08-2020 Complement C4 17 mg/dL Normal 12-38 [facility] Comment on above: Performed By: #### A NTIR, RNA POLYMR, HEP C, ANTI TH TO, HBCAB, PM-SCL ABS, U3 COMMERCIAL PROPERTY ADMINISTRATOR, HBSAG, HBSAB, JOSE #### [facility] , #### CRP, CK, CMP #### [address] Complement Total (CH50)on Complement Total (CH50) >60 Normal >41 [facility] Comment on above: Result Comment: Age [...] of range values. Performed at: - [facility] [address] [id number] Produce Manager: David Pace PhD, Phone: [phone] PERFORMED BY: [place] [address] PATHOLOGIST GRADING MACHINE OPERATOR BEAU JOHNSON M.D. Performed By: #### A NTIR, RNA POLYMR, HEP C, ANTI TH TO, HBCAB, PM-SCL ABS, U3 COMMERCIAL PROPERTY ADMINISTRATOR, HBSAG, HBSAB, JOSE #### [facility] , #### CRP, CK, CMP #### [address] Complete Blood Count Auto Di ffon 08-08-2020 Basophils (Bld) [#/Vol] 0.0 10*3/uL Normal 0.0-0.2 [facility] Comment on above: Performed By: #### A NTIR, RNA POLYMR, HEP C, ANTI TH TO, HBCAB, PM-SCL ABS, U3 COMMERCIAL PROPERTY ADMINISTRATOR, HBSAG, HBSAB, JOSE #### [facility] , #### CRP, CK, CMP #### [address] Basophils/100 WBC (Bld) 0.4 % Normal . [facility] Comment on above: Performed By: #### A NTIR, RNA POLYMR, HEP C, ANTI TH TO, HBCAB, PM-SCL ABS, U3 COMMERCIAL PROPERTY ADMINISTRATOR, HBSAG, HBSAB, JOSE #### [facility] , #### CRP, CK, CMP #### [address] Eosinophils (Bld) [#/Vol] 0.0 10*3/uL Normal 0.0-0.45 [facility] Comment on above: Performed By: #### A NTIR, RNA POLYMR, HEP C, ANTI TH TO, HBCAB, PM-SCL ABS, U3 COMMERCIAL PROPERTY ADMINISTRATOR, HBSAG, HBSAB, JOSE #### [facility] , #### CRP, CK, CMP #### [address] Eosinophils/100 WBC (Bld) 0.6 % Normal . [facility] Comment on above: Performed By: #### A NTIR, RNA POLYMR, HEP C, ANTI TH TO, HBCAB, PM-SCL ABS, U3 COMMERCIAL PROPERTY ADMINISTRATOR, HBSAG, HBSAB, JOSE #### [facility] , #### CRP, CK, CMP #### [address] Erythrocyte distribution width (RBC) [Ratio] 12.7 % Normal 11.9-15.3 [facility] Comment on above: Performed By: #### A NTIR, RNA POLYMR, HEP C, ANTI TH TO, HBCAB, PM-SCL ABS, U3 COMMERCIAL PROPERTY ADMINISTRATOR, HBSAG, HBSAB, JOSE #### [facility] , #### CRP, CK, CMP #### [address] Hematocrit (Bld) [Volume fraction] 40.9 % Normal 34.0-46.4 [facility] Comment on above: Performed By: #### A NTIR, RNA POLYMR, HEP C, ANTI TH TO, HBCAB, PM-SCL ABS, U3 COMMERCIAL PROPERTY ADMINISTRATOR, HBSAG, HBSAB, JOSE #### [facility] , #### CRP, CK, CMP #### [address] Hemoglobin (Bld) [Mass/Vol] 13.5 g/dL Normal 11.8-15.4 [facility] Comment on above: Performed By: #### A NTIR, RNA POLYMR, HEP C, ANTI TH TO, HBCAB, PM-SCL ABS, U3 COMMERCIAL PROPERTY ADMINISTRATOR, HBSAG, HBSAB, JOSE #### [facility] , #### CRP, CK, CMP #### [address] Lymphocytes (Bld) [#/Vol] 1.7 10*3/uL Normal 1.00-4.8 [facility] Comment on above: Performed By: #### A NTIR, RNA POLYMR, HEP C, ANTI TH TO, HBCAB, PM-SCL ABS, U3 COMMERCIAL PROPERTY ADMINISTRATOR, HBSAG, HBSAB, JOSE #### [facility] , #### CRP, CK, CMP #### [address] Lymphocytes/100 WBC (Bld) 25.7 % Normal . [facility] Comment on above: Performed By: #### A NTIR, RNA POLYMR, HEP C, ANTI TH TO, HBCAB, PM-SCL ABS, U3 COMMERCIAL PROPERTY ADMINISTRATOR, HBSAG, HBSAB, JOSE #### [facility] , #### CRP, CK, CMP #### [address] MCH (RBC) [Entitic mass] 32.9 g/dL Normal 32.0-35.0 [facility] Comment on above: Performed By: #### A NTIR, RNA POLYMR, HEP C, ANTI TH TO, HBCAB, PM-SCL ABS, U3 COMMERCIAL PROPERTY ADMINISTRATOR, HBSAG, HBSAB, JOSE #### [facility] , #### CRP, CK, CMP #### [address] MCH (RBC) [Entitic mass] 31.1 pg Normal 24.7-34.3 [facility] Comment on above: Performed By: #### A NTIR, RNA POLYMR, HEP C, ANTI TH TO, HBCAB, PM-SCL ABS, U3 COMMERCIAL PROPERTY ADMINISTRATOR, HBSAG, HBSAB, JOSE #### [facility] , #### CRP, CK, CMP #### [address] MCV (RBC) [Entitic vol] 94.4 fL Normal 80-100 [facility] Comment on above: Performed By: #### A NTIR, RNA POLYMR, HEP C, ANTI TH TO, HBCAB, PM-SCL ABS, U3 COMMERCIAL PROPERTY ADMINISTRATOR, HBSAG, HBSAB, JOSE #### [facility] , #### CRP, CK, CMP #### [address] Monocytes (Bld) [#/Vol] 0.6 10*3/uL Normal 0.0-0.8 [facility] Comment on above: Performed By: #### A NTIR, RNA POLYMR, HEP C, ANTI TH TO, HBCAB, PM-SCL ABS, U3 COMMERCIAL PROPERTY ADMINISTRATOR, HBSAG, HBSAB, JOSE #### [facility] , #### CRP, CK, CMP #### [address] Monocytes/100 WBC (Bld) 8.9 % Normal . [facility] Comment on above: Performed By: #### A NTIR, RNA POLYMR, HEP C, ANTI TH TO, HBCAB, PM-SCL ABS, U3 COMMERCIAL PROPERTY ADMINISTRATOR, HBSAG, HBSAB, JOSE #### [facility] , #### CRP, CK, CMP #### [address] Neutrophils (Bld) [#/Vol] 4.2 10*3/uL Normal 1.8-7.7 [facility] Comment on above: Performed By: #### A NTIR, RNA POLYMR, HEP C, ANTI TH TO, HBCAB, PM-SCL ABS, U3 COMMERCIAL PROPERTY ADMINISTRATOR, HBSAG, HBSAB, JOES #### [facility] , #### CRP, CK, CMP #### [address] Neutrophils/100 WBC (Bld) 64.4 % Normal . [facility] Comment on above: Performed By: #### A NTIR, RNA POLYMR, HEP C, ANTI TH TO, HBCAB, PM-SCL ABS, U3 COMMERCIAL PROPERTY ADMINISTRATOR, HBSAG, HBSAB, JOSE #### [facility] , #### CRP, CK, CMP #### [address] Nucleated RBC/100 WBC (Bld) [Ratio] 0.1 % Normal 0-0.5 [facility] Comment on above: Performed By: #### A NTIR, RNA POLYMR, HEP C, ANTI TH TO, HBCAB, PM-SCL ABS, U3 COMMERCIAL PROPERTY ADMINISTRATOR, HBSAG, HBSAB, JOSE #### [facility] , #### CRP, CK, CMP #### [address] Platelet mean volume (Bld) [Entitic vol] 9.8 fL Normal 6.3-10.7 [facility] Comment on above: Performed By: #### A NTIR, RNA POLYMR, HEP C, ANTI TH TO, HBCAB, PM-SCL ABS, U3 COMMERCIAL PROPERTY ADMINISTRATOR, HBSAG, HBSAB, JOSE #### [facility] , #### CRP, CK, CMP #### [address] Platelets (Bld) [#/Vol] 206 10*3/uL Normal 150-450 [facility] Comment on above: Performed By: #### A NTIR, RNA POLYMR, HEP C, ANTI TH TO, HBCAB, PM-SCL ABS, U3 COMMERCIAL PROPERTY ADMINISTRATOR, HBSAG, HBSAB, JOSE #### [facility] , #### CRP, CK, CMP #### [address] RBC (Bld) [#/Vol] 4.33 10*6/uL Normal 3.60-5.00 [facility] Comment on above: Performed By: #### A NTIR, RNA POLYMR, HEP C, ANTI TH TO, HBCAB, PM-SCL ABS, U3 COMMERCIAL PROPERTY ADMINISTRATOR, HBSAG, HBSAB, JOSE #### [facility] , #### CRP, CK, CMP #### [address] WBC (Bld) [#/Vol] 6.5 10*3/uL Normal 3.8-11.6 [facility] Comment on above: Performed By: #### A NTIR, RNA POLYMR, HEP C, ANTI TH TO, HBCAB, PM-SCL ABS, U3 COMMERCIAL PROPERTY ADMINISTRATOR, HBSAG, HBSAB, JOSE #### [facility] , #### CRP, CK, CMP #### [address] Comprehensive Metabolic Pane lilian 08-08-2020 Albumin [Mass/Vol] 4.1 g/dL Normal 3.2-5.5 [facility] Comment on above: Performed By: #### A NTIR, RNA POLYMR, HEP C, ANTI TH TO, HBCAB, PM-SCL ABS, U3 COMMERCIAL PROPERTY ADMINISTRATOR, HBSAG, HBSAB, JOSE #### [facility] , #### CRP, CK, CMP #### [address] Albumin/Globulin [Mass ratio] 1.9 {ratio} Normal [facility] Comment on above: Performed By: #### A NTIR, RNA POLYMR, HEP C, ANTI TH TO, HBCAB, PM-SCL ABS, U3 COMMERCIAL PROPERTY ADMINISTRATOR, HBSAG, HBSAB, JOSE #### [facility] , #### CRP, CK, CMP #### [facility] [address] [place] [address] ALP [Catalytic activity/Vol] 81 U/L Normal 32-92 [facility] Comment on above: Performed By: #### A NTIR, RNA POLYMR, HEP C, ANTI TH TO, HBCAB, PM-SCL ABS, U3 COMMERCIAL PROPERTY ADMINISTRATOR, HBSAG, HBSAB, JOSE #### [facility] , #### CRP, CK, CMP #### [address] ALT [Catalytic activity/Vol] 35 U/L Normal 10-60 [facility] Comment on above: Performed By: #### A NTIR, RNA POLYMR, HEP C, ANTI TH TO, HBCAB, PM-SCL ABS, U3 COMMERCIAL PROPERTY ADMINISTRATOR, HBSAG, HBSAB, JOSE #### [facility] , #### CRP, CK, CMP #### [address] AST [Catalytic activity/Vol] 25 U/L Normal 10-42 [facility] Comment on above: Performed By: #### A NTIR, RNA POLYMR, HEP C, ANTI TH TO, HBCAB, PM-SCL ABS, U3 COMMERCIAL PROPERTY ADMINISTRATOR, HBSAG, HBSAB, JOSE #### [facility] , #### CRP, CK, CMP #### [address] Bilirubin [Mass/Vol] 0.4 mg/dL Normal 0.3-1.2 [facility] Comment on above: Performed By: #### A NTIR, RNA POLYMR, HEP C, ANTI TH TO, HBCAB, PM-SCL ABS, U3 COMMERCIAL PROPERTY ADMINISTRATOR, HBSAG, HBSAB, JOSE #### [facility] , #### CRP, CK, CMP #### [address] Calcium [Mass/Vol] 9.2 mg/dL Normal 8.2-10.2 [facility] Comment on above: Performed By: #### A NTIR, RNA POLYMR, HEP C, ANTI TH TO, HBCAB, PM-SCL ABS, U3 COMMERCIAL PROPERTY ADMINISTRATOR, HBSAG, HBSAB, JOSE #### [facility] , #### CRP, CK, CMP #### [address] Chloride [Moles/Vol] 106 mmol/L Normal 95-114 [facility] Comment on above: Performed By: #### A NTIR, RNA POLYMR, HEP C, ANTI TH TO, HBCAB, PM-SCL ABS, U3 COMMERCIAL PROPERTY ADMINISTRATOR, HBSAG, HBSAB, JOSE #### [facility] , #### CRP, CK, CMP #### [address] CO2 [Moles/Vol] 28.1 mmol/L Normal 22.0-30.0 [facility] Comment on above: Performed By: #### A NTIR, RNA POLYMR, HEP C, ANTI TH TO, HBCAB, PM-SCL ABS, U3 COMMERCIAL PROPERTY ADMINISTRATOR, HBSAG, HBSAB, JOSE #### [facility] , #### CRP, CK, CMP #### [address] Creatinine [Mass/Vol] 0.64 mg/dL Normal 0.44-1.03 [facility] Comment on above: Performed By: #### A NTIR, RNA POLYMR, HEP C, ANTI TH TO, HBCAB, PM-SCL ABS, U3 COMMERCIAL PROPERTY ADMINISTRATOR, HBSAG, HBSAB, JOSE #### [facility] , #### CRP, CK, CMP #### [address] Estimated GFR ( Tari > 60 [facility] Comment on above: Result Comment: GFR estimated reference range: According to KDOQI guidelines, <60 ml/min/1.73m2 is sufficient to diagnose a patient with chronic kidney disease. Performed By: #### A NTIR, RNA POLYMR, HEP C, ANTI TH TO, HBCAB, PM-SCL ABS, U3 COMMERCIAL PROPERTY ADMINISTRATOR, HBSAG, HBSAB, JOSE #### [facility] , #### CRP, CK, CMP #### [address] Estimated GFR (Non- Am > 60 [facility] Comment on above: Performed By: #### A NTIR, RNA POLYMR, HEP C, ANTI TH TO, HBCAB, PM-SCL ABS, U3 COMMERCIAL PROPERTY ADMINISTRATOR, HBSAG, HBSAB, JOSE #### [facility] , #### CRP, CK, CMP #### [address] Globulin (S) [Mass/Vol] 2.2 g/dL Normal [facility] Comment on above: Performed By: #### A NTIR, RNA POLYMR, HEP C, ANTI TH TO, HBCAB, PM-SCL ABS, U3 COMMERCIAL PROPERTY ADMINISTRATOR, HBSAG, HBSAB, JOSE #### [facility] , #### CRP, CK, CMP #### [address] Glucose [Mass/Vol] 87 mg/dL Normal 70-100 [facility] Comment on above: Result Comment: [facility] Glucose Reference Range is dependent on time and content of last meal. Glucose of more than 200 mg/dL in a nonstressed, ambulatory subject supports the diagnosis of Diabetes Mellitus. ADA recommended reference range Performed By: #### A NTIR, RNA POLYMR, HEP C, ANTI TH TO, HBCAB, PM-SCL ABS, U3 COMMERCIAL PROPERTY ADMINISTRATOR, HBSAG, HBSAB, JOSE #### [facility] , #### CRP, CK, CMP #### [address] Potassium [Moles/Vol] 4.5 mmol/L Normal 3.5-5.1 [facility] Comment on above: Performed By: #### A NTIR, RNA POLYMR, HEP C, ANTI TH TO, HBCAB, PM-SCL ABS, U3 COMMERCIAL PROPERTY ADMINISTRATOR, HBSAG, HBSAB, JOSE #### [facility] , #### CRP, CK, CMP #### [address] Protein [Mass/Vol] 6.3 g/dL Normal 6.1-7.9 [facility] Comment on above: Performed By: #### A NTIR, RNA POLYMR, HEP C, ANTI TH TO, HBCAB, PM-SCL ABS, U3 COMMERCIAL PROPERTY ADMINISTRATOR, HBSAG, HBSAB, JOSE #### [facility] , #### CRP, CK, CMP #### [address] Sodium [Moles/Vol] 143 mmol/L Normal 136-146 [facility] Comment on above: Performed By: #### A NTIR, RNA POLYMR, HEP C, ANTI TH TO, HBCAB, PM-SCL ABS, U3 COMMERCIAL PROPERTY ADMINISTRATOR, HBSAG, HBSAB, JOSE #### [facility] , #### CRP, CK, CMP #### [address] Urea nitrogen [Mass/Vol] 11 mg/dL Normal 9-23 [facility] Comment on above: Performed By: #### A NTIR, RNA POLYMR, HEP C, ANTI TH TO, HBCAB, PM-SCL ABS, U3 COMMERCIAL PROPERTY ADMINISTRATOR, HBSAG, HBSAB, JOSE #### [facility] , #### CRP, CK, CMP #### [address] Creatine Kinaseon 08-08-2020 CK [Catalytic activity/Vol] 39 U/L Normal 22-269 [facility] Comment on above: Result Comment: PERF ORMED BY: [place] [address] PATHOLOGIST GRADING MACHINE OPERATOR BEAU JOHNSON M.D. Performed By: #### A NTIR, RNA POLYMR, HEP C, ANTI TH TO, HBCAB, PM-SCL ABS, U3 COMMERCIAL PROPERTY ADMINISTRATOR, HBSAG, HBSAB, JOSE #### [facility] , #### CRP, CK, CMP #### [address] Erythrocyte Sedimentation Ra byron 08-08-2020 ESR (Bld) [Velocity] 4 mm/h Normal 0-29 [facility] Comment on above: Result Comment: PERF ORMED BY: [place] [address] PATHOLOGIST GRADING MACHINE OPERATOR BEAU JOHNSON M.D. Performed By: #### A NTIR, RNA POLYMR, HEP C, ANTI TH TO, HBCAB, PM-SCL ABS, U3 COMMERCIAL PROPERTY ADMINISTRATOR, HBSAG, HBSAB, JOSE #### [facility] , #### CRP, CK, CMP #### [address] Hep C Ab w Verificationon HCV AB <0.1 Normal 0.0-0.9 [facility] Comment on above: Order Comment: Speci men Comment: Test(s) [id number]-[id number]-D5 COMMERCIAL PROPERTY ADMINISTRATOR (Fibrillarin)(RDL) Specimen Comment: was developed and its performance characteristics Specimen Comment: determined by [facility]. It has not been cleared or approved Specimen Comment: by the Food and Drug Administration. Specimen Comment: Test(s) [id number]-Hmdh-CZ/Scl-75 Ab (RDL) Specimen Comment: was developed and its performance characteristics Specimen Comment: determined by [facility]. It has not been cleared or approved Specimen Comment: by the Food and Drug Administration. Performed By: #### A NTIR, RNA POLYMR, HEP C, ANTI TH TO, HBCAB, PM-SCL ABS, U3 COMMERCIAL PROPERTY ADMINISTRATOR, HBSAG, HBSAB, JOSE #### [facility] , #### CRP, CK, CMP #### [address] HCV Ab Comment Normal . [facility] Comment on above: Order Comment: Speci men Comment: Test(s) [id number]-Nqjh-Y1 COMMERCIAL PROPERTY ADMINISTRATOR (Fibrillarin)(RDL) Specimen Comment: was developed and its performance characteristics Specimen Comment: determined by [facility]. It has not been cleared or approved Specimen Comment: by the Food and Drug Administration. Specimen Comment: Test(s) [id number]-Uiwk-KR/Scl-75 Ab (RDL) Specimen Comment: was developed and [...] ANTI TH TO, HBCAB, PM-SCL ABS, U3 COMMERCIAL PROPERTY ADMINISTRATOR, HBSAG, HBSAB, JOSE #### [facility] , #### CRP, CK, CMP #### [facility] [address] [place] [address] Hepatitis B Core Antibodyon 08-08-2020 Hepatitis B Core Antibody Negative Normal Negative [facility] Comment on above: Order Comment: Speci men Comment: Test(s) [id number]-Hcwu-T7 COMMERCIAL PROPERTY ADMINISTRATOR (Fibrillarin)(RDL) Specimen Comment: was developed and its performance characteristics Specimen Comment: determined by [facility]. It has not been cleared or approved Specimen Comment: by the Food and Drug Administration. Specimen Comment: Test(s) [id number]-Znvl-MK/Scl-75 Ab (RDL) Specimen Comment: was developed and its performance characteristics Specimen Comment: determined by [facility]. It has not been cleared or approved Specimen Comment: by the Food and Drug Administration. Result Comment: Perf ormed at: [address] [id number] Produce Manager: David Pace PhD, Phone: [phone] Performed By: #### A NTIR, RNA POLYMR, HEP C, ANTI TH TO, HBCAB, PM-SCL ABS, U3 COMMERCIAL PROPERTY ADMINISTRATOR, HBSAG, HBSAB, JOSE #### [facility] , #### CRP, CK, CMP #### [place] [id number] [place] Hepatitis B Surface Antibody on 08-08-2020 Hepatitis B Surface Antibody Non Reactive Normal . [facility] Comment on above: Order Comment: Speci men Comment: Test(s) [id number]-Xohm-T4 COMMERCIAL PROPERTY ADMINISTRATOR (Fibrillarin)(RDL) Specimen Comment: was developed and its performance characteristics Specimen Comment: determined by [facility]. It has not been cleared or approved Specimen Comment: by the Food and Drug Administration. Specimen Comment: Test(s) [id number]-Zzvp-XS/Scl-75 Ab (RDL) Specimen Comment: was developed and [...] ANTI TH TO, HBCAB, PM-SCL ABS, U3 COMMERCIAL PROPERTY ADMINISTRATOR, HBSAG, HBSAB, JOSE #### [facility] , #### CRP, CK, CMP #### [facility] [address] [place] [address] Hepatitis B Surface Antigeno n 08-08-2020 HBsAg Screen Negative Normal Negative [facility] Comment on above: Order Comment: Speci men Comment: Test(s) [id number]-Qzun-K5 COMMERCIAL PROPERTY ADMINISTRATOR (Fibrillarin)(RDL) Specimen Comment: was developed and its performance characteristics Specimen Comment: determined by [facility]. It has not been cleared or approved Specimen Comment: by the Food and Drug Administration. Specimen Comment: Test(s) [id number]-Zxvs-HE/Scl-75 Ab (RDL) Specimen Comment: was developed and its performance characteristics Specimen Comment: determined by [facility]. It has not been cleared or approved Specimen Comment: by the Food and Drug Administration. Performed By: #### A NTIR, RNA POLYMR, HEP C, ANTI TH TO, HBCAB, PM-SCL ABS, U3 COMMERCIAL PROPERTY ADMINISTRATOR, HBSAG, HBSAB, JOSE #### [facility] , #### CRP, CK, CMP #### [facility] [address] [place] [address] [place] PM-SCL Antibodieson 08-08-19 21 JOHN PM-Scl Antibody <20 Normal <20 [facility] Comment on above: Order Comment: Speci men Comment: Test(s) [id number]-Otmu-A4 COMMERCIAL PROPERTY ADMINISTRATOR (Fibrillarin)(RDL) Specimen Comment: was developed and its performance characteristics Specimen Comment: determined by [facility]. It has not been cleared or approved Specimen Comment: by the Food and Drug Administration. Specimen Comment: Test(s) [id number]-Hbms-ZM/Scl-75 Ab (RDL) Specimen Comment: was developed and its performance characteristics Specimen Comment: determined by [facility]. It has not been cleared or approved Specimen Comment: by the Food and Drug Administration. Result Comment: Nega tive: <20 Weak Positive: 20 - 39 Moderate Positive: 40 - 80 Strong Positive: >80 Performed at: [facility] [address] [place] [id number] Produce Manager: Shay Mcnair MD, Phone: [phone] Performed By: #### A NTIR, RNA POLYMR, HEP C, ANTI TH TO, HBCAB, PM-SCL ABS, U3 COMMERCIAL PROPERTY ADMINISTRATOR, HBSAG, HBSAB, JOSE #### [facility] , #### CRP, CK, CMP #### [facility] [address] [place] [address] RNA Polymerase IIion 021 RNA Polymerase IIi <20 Normal <20 [facility] Comment on above: Order Comment: Speci men Comment: Test(s) [id number]-Ujyi-Jc/To Ab (RDL) Specimen Comment: was developed and its performance characteristics Specimen Comment: determined by [facility]. It has not been cleared or approved Specimen Comment: by the Food and Drug Administration. Result Comment: Nega tive: <20 Weak Positive: 20 - 39 Moderate Positive: 40 - 80 Strong Positive: >80 Performed at: [facility] [address] [place] [id number] Produce Manager: Shay Mcnair MD, Phone: [phone] PERFORMED BY: [place] [address] PATHOLOGIST GRADING MACHINE OPERATOR BEAU JOHNSON M.D. Performed By: #### A NTIR, RNA POLYMR, HEP C, ANTI TH TO, HBCAB, PM-SCL ABS, U3 COMMERCIAL PROPERTY ADMINISTRATOR, HBSAG, HBSAB, JOSE #### [facility] , #### CRP, CK, CMP #### [facility] [address] [place] [address] [place] Th/To Antibodyon 08-08-2020 Th/To Antibody Negative Normal Negative [facility] Comment on above: Order Comment: Speci men Comment: Test(s) [id number]-Srjj-Xy/To Ab (RDL) Specimen Comment: was developed and its performance characteristics Specimen Comment: determined by [facility]. It has not been cleared or approved Specimen Comment: by the Food and Drug Administration. Result Comment: Perf ormed at: [facility] [address], [place] [id number] Produce Manager: Shay Mcnair MD, Phone: [phone] Performed By: #### A NTIR, RNA POLYMR, HEP C, ANTI TH TO, HBCAB, PM-SCL ABS, U3 COMMERCIAL PROPERTY ADMINISTRATOR, HBSAG, HBSAB, JOSE #### [facility] , #### CRP, CK, CMP #### [address] U3 Rnpon 08-08-2020 U3 Marble Installer Supervisor Negative Normal Negative [facility] Comment on above: Order Comment: Speci men Comment: Test(s) [id number]-Gxla-N8 COMMERCIAL PROPERTY ADMINISTRATOR (Fibrillarin)(RDL) Specimen Comment: was developed and its performance characteristics Specimen Comment: determined by [facility]. It has not been cleared or approved Specimen Comment: by the Food and Drug Administration. Specimen Comment: Test(s) [id number]-Dedl-VH/Scl-75 Ab (RDL) Specimen Comment: was developed and its performance characteristics Specimen Comment: determined by [facility]. It has not been cleared or approved Specimen Comment: by the Food and Drug Administration. Result Comment: Perf ormed at: [facility] [address], [place] [id number] Produce Manager: Shay Mcnair MD, Phone: [phone] PERFORMED BY: [place] [address] PATHOLOGIST GRADING MACHINE OPERATOR BEAU JOHNSON M.D. Performed By: #### A NTIR, RNA POLYMR, HEP C, ANTI TH TO, HBCAB, PM-SCL ABS, U3 COMMERCIAL PROPERTY ADMINISTRATOR, HBSAG, HBSAB, JOSE #### [facility] , #### CRP, CK, CMP #### [facility] [address] T4on 08-02-2020 T4, Total 9.9 ug/dL 4.5 - 10.9 ug/dL [place], [place] TSH without Reflexon 021 Interpretation and review of laboratory results Abnormal [place], [place] TSH Qn 5.63 m[IU]/L [place], [place] Vital Signs Date Time Vital Sign Value Performing Clinician Faci lity 01-10-2023 19:11-0400 SaO2% (BldA) [Mass fraction] 92 % Bulmaro Padron MD Work Phone: [facility] 01-10-2023 18:46-0400 Diastolic blood pressure 75 mm[Hg] Bulmaro Padron MD Work Phone: [facility] 01-10-2023 18:46-0400 Systolic blood pressure 166 mm[Hg] Bulmaro Padron MD Work Phone: [facility] 01-10-2023 17:33-0400 Body temperature 97.9 [degF] Bulmaro Padron MD Work Phone: [facility] 01-10-2023 17:33-0400 Heart rate 71 /min Bulmaro Padron MD Work Phone: [facility] 01-10-2023 17:33-0400 Respiratory rate 16 /min Bulmaro Padron MD Work Phone: [facility] Encounters Encounter Date Encounter Type Care Provider Facility Start: 03-23-2024 End: 03-23-2024 ambulatory Akira Vargas MD Facility:[facility] Start: 03-02-2024 End: 03-02-2024 ambulatory Akira Vargas MD Facility:[facility] Start: 05-28-2023 End: 05-29-2023 ambulatory Aayush MENDOZA Facility: [facility] Start: 05-27-2023 ambulatory Aayush MENDOZA Facility:[facility] Start: 04-29-2023 ambulatory Aayush MENDOZA Facility:[facility] Start: 04-02-2023 End: 04-03-2023 ambulatory ARMIDA AGEE [facility] Start: 02-01-2023 End: 02-01-2023 Subsequent hospital visit by physician Bulmaro Padron MD Work Phone: [facility] Laboratory Comment on above: Nocturia; Frequency of urination; Urge incontinence Start: 02-01-2023 End: 02-04-2023 ambulatory GABBIE WHITE [facility] Start: 01-10-2023 Emergency department patient visit BULMARO [facility] Start: 01-10-2023 End: 01-10-2023 Emergency department patient visit Bulmaro Padron MD Work Phone: [facility] ED Comment on above: Right ureteral stone (Primary Dx) Start: 10-09-2022 Emergency department patient visit JORDYN EATON [facility] Start: 06-19-2022 End: 06-20-[address] BULMARO APDRON Facility:[facility] Start: 05-23-2022 End: 05-24-[address] BULMARO PADRON Facility:[facility] Start: 03-28-2022 End: 03-29-[address] BULMARO PADRON Facility:[facility] Start: 03-06-2022 End: 03-07-[address] BULMARO PADRON Facility:[facility] Start: 07-25-2021 End: 07-25-[address] BULMARO PADRON Facility:[facility] Start: 07-20-2021 End: 07-21-[address] BULMARO PADRON Facility:[facility] Start: 08-02-2020 End: 08-02-2020 Subsequent [facility] visit by [facility] Procedures Date Procedure Procedure Detail Performing Clinician Start: 02-01-2023 Culture bacterial quanttative colony count urine Gabbie White WORK ORDER DETAILER - ROSTER CLERK Work Phone: Start: 01-10-2023 Ct abdomen & pelvis w/o contrast material Cari Bedmichelekop WORK ORDER DETAILER - ROSTER CLERK Work Phone: Start: 01-10-2023 Comprehensive metabo lic panel Cari Bedenkop WORK ORDER DETAILER - ROSTER CLERK Work Phone: Start: 01-10-2023 Urinalysis microscopic only Unknown Provider Result Start: 01-10-2023 Urnls dip stick/tabl et rgnt auto w/o microscopy Cari Britton WORK ORDER DETAILER - ROSTER CLERK Work Phone: Start: 08-02-2020 Assay of thyroid stimulating hormone tsh Bulmaro Padron Work Phone: Start: 08-02-2020 Assay of thyroxine total Bulmaro Padron Work Phone: Plan of Treatment Date Care Activity Detail Author Start: 01-27-2028 DTaP/Tdap/Td vaccine (2 - Td or Tdap) DTaP/Tdap/Td vaccine (2 - Td or Tdap) [facility] Start: 01-27-2028 DTaP/Tdap/Td vaccine (2 - Td) DTaP/Tdap/Td vaccine (2 - Td) [place] Start: 02-12-2023 Influenza vaccination [facility] Start: 03-15-2020 Influenza vaccination Flu vaccine (# 1) [place] Start: 01-04-2019 Annual Wellness Visi t (AWV) Annual Wellness Visit (AWV) [facility] Start: 2012 Screening for malign ant neoplasm of breast Breast cancer screen [email or web address] Start: 2012 Screening for malign ant neoplasm of colon Colon cancer screen colonoscopy [place], [place] Start: 2012 Shingles Vaccine (1 of 2) Shingles Vaccine (1 of 2) [email or web address] Start: 12-15-2007 Screening for malign ant neoplasm of colon [email or web address] Start: 2002 Lipid panel [facility] [employer] [email or web address] Start: 1997 Diabetes screen Diabetes screen [email or web address] Start: 1992 Screening for malign ant neoplasm of cervix [email or web address] Start: 12-15-1983 Screening for malign ant neoplasm of cervix [email or web address] Start: 1980 Hepatitis C screening Hepatitis C sc reen [facility] [email or web address] Start: 1977 HIV screening HIV screen [facility] Start: 1974 Depression Screen Depression Screen [facility] Start: 06-15-1963 COVID-19 Vaccine (#1) COVID-19 Vacci ne (#1) [facility] Start: 1962 Hepatitis C screening Hepatitis C sc sonny [place], [place] End: 08-02-2020 Free T3 [Mass/Vol] T3, Free Lab Routine Once for 1 Occurrences starting 08/02/2020 until 08/02/2020 [place] Comment on above: Once for 1 Occurrenc es starting 08/02/2020 until 08/02/2020 Free T3 [Mass/Vol] T3, Free Lab Routine 08/02/2020 10:13 AM EST [place] Immunizations Immunization Date Immunization Notes Care Provider Gt doyle 01-26-2018 tetanus toxoid, redu clare diphtheria toxoid, and acellular pertussis vaccine, adsorbed Bulmaro Hoy [facility] Payers Date Payer Category Payer Private Health Insurance 2018 Medicare [id number] 2017 Unknown [id number] 1962 Unknown [id number] 2.16.84 [id number] 1962 Unknown [id number] 2.16.84 [id number] 1962 Unknown [id number] 2.16.84 [id number] 1962 Unknown [id number] 2.16.84 [id number] 1962 Unknown [id number] 2.16.84 [id number] 1962 Unknown [id number] 2.16.84 [id number] 1962 Unknown [id number] 2.16.8 [id number] 1962 Unknown [id number] 2.16.8 [id number] 1962 Unknown [id number] 2.16.8 [id number] 1962 Unknown [id number] 2.16.8 [id number] 1962 Unknown [id number] 2.16.8 [id number] 1962 Unknown [id number] 2.16. [id number] 1962 Unknown [id number] 2.16. [id number] Social History Date Type Detail Facility Start: 07-01-2018 End: 01-11-2023 Tobacco smoking status NHIS Former smoker [place], [place] Start: 07-01-2018 End: 01-11-2023 Tobacco use and exposure Never used [place], [place] Start: 07-01-2018 End: 02-01-2023 Alcohol intake Current non-drinker of alcohol (finding) [place], [place] Start: 1960 Sex Assigned At Not on file [place], [place] History of tobacco use Current smoker [facility] Start: 10-09-2022 History SDOH Alcohol Frequency 1 [facility] Start: 10-09-2022 History SDOH Alcohol Std Drinks 0 [facility] Clinical Note 05-28-2023 Note Date & Type [...] Substance Abuse, 05/28/20 (more content not included)... [facility] Comment on above: Result Comment: Elec [...] cannot be sent through Care Everywhere.Kidney Stone (Luxembourger)documented in this encounter [facility] Evaluation note Note Date & Type Note Facility Evaluation note Diagnosis Right ureteral stone- Primary Calculus of ureter documented in this encounter [facility] Evaluation note Note Date & Type Note Facility Evaluation note Diagnosis Nocturia Frequency of urination Urinary frequency Urge incontinence documented in this encounter [facility] Advance Directives No Advanced Directives Records FoundDocuments on File Type Date Recorded Patient Solutions Developer Expl anation ACP-Advance Directive ACP-Power of Food Equipment Service Technician Summary Purpose Family History No Family History Records FoundNo Family History Records FoundNo Family History Records FoundNo Family History Records FoundNo Family History Records Found Additional Source Comments INFORMATION SOURCE (unrecogn ized section and content) DATE CREATED AUTHOR 08/17/2020 [facility] DATE CREATED AUTHOR AUTHOR'S ORGANIZ ATION 06/23/2022 [facility] DATE CREATED AUTHOR AUTHOR'S ORGANIZ ATION [facility] DATE CREATED AUTHOR AUTHOR'S ORGANIZ ATION 05/29/2023 [facility] DATE CREATED AUTHOR AUTHOR'S ORGANIZ ATION 04/02/2024 [facility] Reason for Visit (unrecogniz ed section [...] at rate not to exceed 25 mg/min. 1833 (Given - Provid er: Whitney Ingram RN) hydrocodone-acetaminophen (NORCO) tablet 5-325 mg (STARTER PACK) This order is for a take home starter pack of medication. Please document Furnish to patient on the 2002 (Furnished to P atient - Provider: Celia Brady RN) HYDROmorphone (DILAUDID) injection 0.5 mg (COMPLETED) 0.5 mg, IntraVENous, NOW, 1 dose, On Lashawn 01/10/23 at 1830, If oral and IV narcotics ordered, use oral first and only use IV if oral is ineffective or cannot take oral. Do Not give oral and IV within 1 hour of each other unless specifically ordered. 183 (Given - Provid er: Whitney Ingram RN) [...] hour of each other unless specifically ordered. 180 (Given - Provid er: Whitney Ingram [...] Care Teams (unrecognized sec tion and content) Developmental Writing Instructor Relationship Specialty Start [place] [address] [place] [address] PCP - General Family Medicine 01/26/18 Developmental Writing Instructor Relationship Specialty Start Date End Date Bulmaro Padron MD [address] [place] [id number] PCP - General Family Medicine 01/26/18 FOR [...] BE BASED ON THE PRIMARY CLINICAL RECORDS. [facility] [employer] [facility] provides no warranty or guarantee of the accuracy or completeness of information in this document.
[2024-04-06 07:11] VITALS: BP 170/79; PULSE 69; TEMP 36.4; O2SAT 95
[2024-04-06] MEDS: BUPIVACAINE HCL 0.25% PF 25 MG/10 ML VIAL INJ (07:51)
[2024-04-06] MEDS: LIDOCAINE HCL 2% 400 MG/20 ML MDV 15 ML INJ (07:53)
[2024-04-06 07:55] VITALS: BP 157/90; BP 178/87; PULSE 66; PULSE 68; O2SAT 96; O2SAT 97
--- NOTE | 2024-04-06 07:55 | W.PM.PROCNOT ---
Date of procedure: 04/06/24 Pre-op diagnosis: Pain due to lumbar spondylosis without myelopathy Post-op diagnosis: same as pre-op Procedure: Procedure: Bilateral L4-5, L5-S1 medial branch block Medications: Bupivacaine 0.25% 6cc The patient was seen and examined in the preoperative holding area.? An informed consent was obtained and placed on the chart.? The patient was brought to the medical procedure unit and placed in the prone position.? A timeout was completed verifying correct patient, procedure site, positioning, plan, and special equipment.? Using aseptic technique, the needle was placed at left L4. Under direct fluoroscopic visualization a Quincke-tipped spinal needle was advanced to the junction of the superior articulating process with the transverse process at the designated medial branch segment.? Preceded by negative aspiration, the above-mentioned injectate was placed in 1 mL aliquots.? The procedure was repeated at left L5, S1.? The needle was removed and insertion site was covered. The same procedure, at the same levels, was completed on the right side. The patient was taken to the postprocedural recovery area and monitored for an appropriate length of time before found suitable for discharge in the company of a responsible adult. Anesthesia: Local Surgeon: Akira Vargas Pathology: none sent Condition: stable Disposition: no change
== END 2024-04-06 07:59 | disposition home or self-care (01) ==
LOC: SURGOUT 07:02
PROVIDERS: PCP Family Medicine; Visit Provider Anesthesiology
DX: M47.816 Spondylosis without myelopathy or radiculopathy, lumbar region (principal)
CPT/HCPCS: 64493; 64494; J0665

== ENCOUNTER 2024-04-08 10:25 | Outpatient (OUT) | payer MEDICARE, SELFPAY ==
--- OUTSIDE RECORDS SUMMARY | 2024-04-08 10:45 | XMS_ITS | CCD ---
Author Organization [facility] CliniSyme Care Team Providers Care Acds Block 1 Operator Name Role Phone Bulmaro Padron Primary Care Provider [phone] DR BULMARO PADRON Admitting Unavailable CLARA, DR [...] Propensity to adverse reactions (disorder) [facility] Repository (1 source) No Known Medication Allergies; Translations: [No Known Medication Allergies] Propensity to adverse reactions (disorder) [facility] Repository Medications Current Medications Medication [...] us for your care. Normal [facility] RAD - CT Reporton 05-23-2023 RAD - CT Report [id number] 0TIFF Normal [facility] Patient Letter FTMCon 2022 Patient Letter [facility] May 16, 2023 YAS KURTZ [address] [place] [address] : 1960 Dear Ms. Kurtz, Thank you for choosing [facility] for your healthcare needs. Your consultation appointment with Dr Aayush Mendoza is scheduled for 05/28/23 at 10am. We are located in the [place] [address] building, 2nd floor, [address]. A map is enclosed. Please bring your insurance card, a photo ID, and any co-pay you are responsible for to this first appointment. If you have any questions, please call us at [phone]. We look forward to seeing you soon. Sincerely, [place] [address], [address] [place] [address]. [place] [address] [facility] Consultation Noteon 05-01-20 23 Consultation Note [id number] 0TIFF Normal [facility] Physician Referralon 023 Physician Referral [id number] 0TIFF Normal [facility] Cult,Urineon 04-03-2023 Cult,Urine Specimen Description .CLEAN CATCH URINE Culture NO SIGNIFICANT GROWTH Report Status FINAL 04/03/2023 Normal [facility] Comment on above: Performed By: #### B C #### [facility] [address] [place] [address] [address] [place], [place] [id number] Vending Service Technician: Stu Baires MD Trichomonas/Wet Prepon 04-02 Trichomonas/Wet Prep Specimen Description .VAGINA Direct Exam NO YEAST OBSERVED NO TRICHOMONAS SEEN NO CLUE CELLS SEEN Report Status FINAL 04/02/2023 Normal [facility] Comment on above: Performed By: #### W P #### [facility] [address] [place] [address] Vending Service Technician: Stu Baires MD Cult,Urineon 02-03-2023 Cult,Urine Specimen Description .CLEAN CATCH URINE Culture NO SIGNIFICANT GROWTH Report Status FINAL 02/02/2023 [facility] Comment on above: Performed By: #### U RC #### [facility] [address] [place] [address] Vending Service Technician: Victor Manuel Be MD [facility] [address] [place] [address] Vending Service Technician: Stu Baires MD Culture, Urineon 02-02-2023 Microorganism identified Cx Nom (Unsp spec) NO SIGNIFICANT GROWTH [facility] Specimen Description .CLEAN CATCH URINE [facility] CT ABDOMEN PELVIS WO CONTRAS Ton 02-01-2023 [...] Ar Graves MD 02/01/23 Final result Normal [facility] CBC with Auto Differentialon 01-10-2023 Basophils (Bld) [#/Vol] 0.03 10*3/uL [facility] Basophils/100 WBC (Bld) 0 % 0 - 2 % [facility] Eosinophils (Bld) [#/Vol] 0.03 10*3/uL [facility] Eosinophils/100 WBC (Bld) 0 % Low 1 - 4 % [facility] Erythrocyte distribution width (RBC) [Ratio] 12.6 % 11.8 - 14.4 % [facility] Hematocrit (Bld) [Volume fraction] 43.5 % 36.3 - 47.1 % [facility] Hemoglobin (Bld) [Mass/Vol] 14.4 g/dL 11.9 - 15.1 g/dL [facility] Immature granulocytes (Bld) [#/Vol] [facility] Immature granulocytes/100 WBC (Bld) 0 % 0 [facility] Interpretation and review of laboratory results Abnormal [facility] Lymphocytes/100 WBC (Bld) 11 % Low 24 - 43 % [facility] Lymphocytes/100 WBC (Bld) 0.90 % Low [facility] MCH (RBC) [Entitic mass] 31.5 pg 25.2 - 33.5 pg [facility] MCHC (RBC) [Mass/Vol] 33.1 g/dL 28.4 - 34.8 g/dL [facility] MCV (RBC) [Entitic vol] 95.2 fL 82.6 - 102.9 fL [facility] Monocytes/100 WBC (Bld) 5 % 3 - 12 % [facility] Monocytes/100 WBC (Bld) 0.44 % [facility] Neutrophils/100 WBC (Bld) 84 % High 36 - 65 % [facility] Nucleated RBC/100 WBC (Bld) [Ratio] 0.0 % 0.0 per 100 WBC [facility] Platelet mean volume (Bld) [Entitic vol] 10.8 fL 8.1 - 13.5 fL [facility] Platelets (Bld) [#/Vol] 210 10*3/uL [facility] RBC (Bld) [#/Vol] 4.57 10*6/uL 3.95 - 5.1 1 m/uL [facility] Segmented neutrophils/100 WBC (Bld) 7.13 % [facility] WBC other (Bld) [#/Vol] 8.6 [facility] CBC with Diffon 01-10-2023 Abs. Basophil 0.03 k/uL Normal 0.00-0.20 [facility] Comment on above: Performed By: #### C DP, CP #### [facility] [address] [place] [address] [place] [address] Vending Service Technician: Stu Baires MD Abs.Imm.Granulocyte <0.03 Normal 0.00-0.30 [facility] Comment on above: Performed By: #### C DP, CP #### [address] [place] [address] Vending Service Technician: Stu Baires MD Abs.Neutrophil (Seg) 7.13 k/uL Normal 1.50-8.10 [facility] Comment on above: Performed By: #### C DP, CP #### [address] [place], [place] [id number] Vending Service Technician: Stu Baires MD Basophils/100 WBC (Bld) 0 % Normal 0-2 [facility] Comment on above: Performed By: #### C DP, CP #### [address] [place], [place] 1579183 Vending Service Technician: Stu Baires MD Eosinophils (Bld) [#/Vol] 0.03 10*3/uL Normal 0.00-0.44 [facility] Comment on above: Performed By: #### C DP, CP #### [address] [place], [place] 8344783 Vending Service Technician: Stu Baires MD Eosinophils/100 WBC (Bld) 0 % Low 1-4 [facility] Comment on above: Performed By: #### C DP, CP #### [facility] [address] [place], [place] [id number] Vending Service Technician: Stu Baires MD Erythrocyte distribution width (RBC) [Ratio] 12.6 % Normal 11.8-14.4 [facility] Comment on above: Performed By: #### C DP, CP #### [facility] [address] [place], [facility]83 Vending Service Technician: Stu Baires MD Hematocrit (Bld) [Volume fraction] 43.5 % Normal 36.3-47.1 [facility] Comment on above: Performed By: #### C DP, CP #### [address] [place], [facility]83 Vending Service Technician: Stu Baires MD Hemoglobin (Bld) [Mass/Vol] 14.4 g/dL Normal 11.9-15.1 [facility] Comment on above: Performed By: #### C DP, CP #### [address] [place], [place] [id number] Vending Service Technician: Stu Baires MD Immature granulocytes/100 WBC (Bld) 0 % Normal 0 [facility] Comment on above: Performed By: #### C DP, CP #### [address] [place], [place] [address] Vending Service Technician: Stu Baires MD Lymphocytes (Bld) [#/Vol] 0.90 10*3/uL Low 1.10-3.70 [facility] Comment on above: Performed By: #### C DP, CP #### [facility] [address] [place] [address] Vending Service Technician: Stu Baires MD Lymphocytes/100 WBC (Bld) 11 % Low 24-43 [facility] Comment on above: Performed By: #### C DP, CP #### [facility] [address] [place] [address] [place], [place] [id number] Vending Service Technician: Stu Baires MD MCH (RBC) [Entitic mass] 31.5 pg Normal 25.2-33.5 [facility] Comment on above: Performed By: #### C DP, CP #### [address] [place], [place] 0348083 Vending Service Technician: Stu Baires MD MCHC (RBC) [Mass/Vol] 33.1 g/dL Normal 28.4-34.8 [facility] Comment on above: Performed By: #### C DP, CP #### [address] [place], [facility]83 Vending Service Technician: Stu Baires MD MCV (RBC) [Entitic vol] 95.2 fL Normal 82.6-102.9 [facility] Comment on above: Performed By: #### C DP, CP #### [address] [place], [facility]83 Vending Service Technician: Stu Baires MD Monocytes (Bld) [#/Vol] 0.44 10*3/uL Normal 0.10-1.20 [facility] Comment on above: Performed By: #### C DP, CP #### [address] [place], [place] 8281783 Vending Service Technician: Stu Bairse MD Monocytes/100 WBC (Bld) 5 % Normal 3-12 [facility] Comment on above: Performed By: #### C DP, CP #### [address] [place], [place] 6870783 Vending Service Technician: Stu Baires MD Neutrophil (Seg) 84 % High 36-65 [facility] Comment on above: Performed By: #### C DP, CP #### [address] [place], [place] [id number] Vending Service Technician: Stu Baires MD NRBC Automated 0.0 per 100 WBC Normal 0.0 [facility] Comment on above: Performed By: #### C DP, CP #### [facility] [address] [place], [place] [phone] Vending Service Technician: Stu Baires MD Platelet mean volume (Bld) [Entitic vol] 10.8 fL Normal 8.1-13.5 [facility] Comment on above: Performed By: #### C DP, CP #### [facility] [address] [place], [place] 5372883 Vending Service Technician: Stu Baires MD Platelets (Bld) [#/Vol] 210 10*3/uL Normal 138-453 [facility] Comment on above: Performed By: #### C DP, CP #### [address] [place] [address] Vending Service Technician: Stu Baires MD RBC (Bld) [#/Vol] 4.57 10*6/uL Normal 3.95-5.11 [facility] Comment on above: Performed By: #### C DEMETRIO, CP #### [address] [place] [address] Vending Service Technician: Stu Baires MD WBC (Bld) [#/Vol] 8.6 10*3/uL Normal 3.5-11.3 [facility] Comment on above: Performed By: #### C DP, CP #### [facility] [address] [place] [address] Vending Service Technician: Stu Baires MD [facility] Albumin [Mass/Vol] 4.3 g/dL 3.5 - 5.2 g/dL [facility] Albumin/Globulin [Mass ratio] 1.4 {ratio} 1.0 - 2.5 [facility] ALP [Catalytic activity/Vol] 97 U/L 35 - 104 U/L [facility] ALT [Catalytic activity/Vol] 29 U/L 5 - 33 U/L [facility] Anion gap [Moles/Vol] 8 mmol/L Low 9 - 17 mmol/L [facility] AST [Catalytic activity/Vol] 25 U/L NINF - 32 U/L [facility] Bilirubin [Mass/Vol] 0.3 mg/dL 0.3 - 1.2 mg/dL [facility] Calcium [Mass/Vol] 9.3 mg/dL 8.6 - 10. 4 mg/dL [facility] Chloride [Moles/Vol] 105 mmol/L 98 - 107 mmol/L [facility] CO2 [Moles/Vol] 25 mmol/L 20 - 31 mmol/L [facility] Creatinine [Mass/Vol] 0.51 mg/dL 0.50 - 0.90 mg/dL [facility] GFR/1.73 sq M.predicted MDRD (S/P/Bld) [Vol rate/Area] - PINF [facility] Comment on above: These results [...] mg/dL High 70 - 99 mg/dL [facility] Interpretation and review of laboratory results Abnormal [facility] Potassium [Moles/Vol] 4.3 mmol/L 3.7 - 5.3 mmol/L [facility] Protein [Mass/Vol] 7.4 g/dL 6.4 - 8.3 g/dL [facility] Sodium [Moles/Vol] 138 mmol/L 135 - 144 mmol/L [facility] Urea nitrogen [Mass/Vol] 13 mg/dL 8 - 23 mg/dL [facility] Urea nitrogen/Creatinine [Mass ratio] 25 mg/mg High 9 - [address] [facility] [address] ABDOMEN PELVIS WO CONTRAS Ton 01-10-2023 [...] Enrico Armstrong MD 01/10/23 Final result Normal [facility] CT ABDOMEN PELVIS WO CONTRAS T Additional Contrast? Noneon 01-10-2023 1. 2 mm stone at the right ureterovesical junction with mild hydroureteronephrosis. 2. 1.6 cm left adrenal nodule unchanged from 2018 compatible with a benign adenoma. No follow-up recommended. [facility] EXAMINATION: CT OF THE ABDOMEN AND [...] No acute osseous or soft tissue abnormality. [facility] Enrico Armstrong MD - 01/10/2023 EXAMINATION: [...] a benign adenoma. No follow-up recommended. [facility] Radiology Study observation (narrative) [facility] CT ABDOMEN PELVIS WO CONTRAS T Additional Contrast? NoneOrdered By: Enrico Armstrong on 01-10-2023 [facility] Work Phone: Comp Metabolic Profon 2022 Albumin [Mass/Vol] 4.3 g/dL Normal 3.5-5.2 [facility] Comment on above: Performed By: #### B C #### [facility] [address] [place] [address] [place], [place] [id number] Vending Service Technician: Stu Baires MD Albumin/Glob Ratio 1.4 Normal 1.0-2.5 [facility] Comment on above: Performed By: #### B C #### [facility] [address] [place], [place] 8595783 Vending Service Technician: Stu Baires MD Alkaline Phos 97 U/L Normal 35-104 [facility] Comment on above: Performed By: #### B C #### [facility] [address] [place], [place] [phone] Vending Service Technician: Stu Baires MD ALT [Catalytic activity/Vol] 29 U/L Normal 5-33 [facility] Comment on above: Performed By: #### B C #### [facility] [address] [place], [place] 1016883 Vending Service Technician: Stu Baires MD Anion gap [Moles/Vol] 8 mmol/L Low 9-17 [facility] Comment on above: Performed By: #### B C #### [facility] [address] [place], [place] [phone] Vending Service Technician: Stu Baires MD AST [Catalytic activity/Vol] 25 U/L Normal <32 [facility] Comment on above: Performed By: #### B C #### [facility] [address] [place], [place] [phone] Vending Service Technician: Stu Baires MD Bilirubin [Mass/Vol] 0.3 mg/dL Normal 0.3-1.2 [facility] Comment on above: Performed By: #### B C #### [facility] [address] [place], [place] 9396883 Vending Service Technician: Stu Baires MD BUN/CRE Ratio 25 High 9-20 [facility] Comment on above: Performed By: #### B C #### [facility] [address] [place] [address] Vending Service Technician: Stu Baires MD Calcium [Mass/Vol] 9.3 mg/dL Normal 8.6-10.4 [facility] Comment on above: Performed By: #### B C #### [facility] [address] [place] [id number] Vending Service Technician: Stu Baires MD Chloride [Moles/Vol] 105 mmol/L Normal 98-107 [facility] Comment on above: Performed By: #### B C #### [facility] [address] [place] [address] Vending Service Technician: Stu Baires MD CO2 [Moles/Vol] 25 mmol/L Normal 20-31 [facility] Comment on above: Performed By: #### B C #### [facility] [address] [place] [address] Vending Service Technician: Stu Baires MD Creatinine [Mass/Vol] 0.51 mg/dL Normal 0.50-0.90 [facility] Comment on above: Performed By: #### B C #### [facility] [address] [place] [address] Vending Service Technician: Stu Baires MD GFR/1.73 sq M.predicted among non-blacks MDRD (S/P/Bld) [Vol rate/Area] mL/min/{1.73_m2} Normal >60 [facility] Comment on above: Result Comment: These [...] Performed By: #### B C #### [facility] [address] [place] [address] Vending Service Technician: Stu Baires MD Glucose [Mass/Vol] 140 mg/dL High 70-99 [facility] Comment on above: Performed By: #### B C #### [facility] [address] [place] [address] Vending Service Technician: Stu Baires MD Potassium [Moles/Vol] 4.3 mmol/L Normal 3.7-5.3 [facility] Comment on above: Performed By: #### B C #### [facility] [address] [place] [address] Vending Service Technician: Stu Baires MD Protein [Mass/Vol] 7.4 g/dL Normal 6.4-8.3 [facility] Comment on above: Performed By: #### B C #### [facility] [address] [place] [address] Vending Service Technician: Stu Baires MD Sodium [Moles/Vol] 138 mmol/L Normal 135-144 [facility] Comment on above: Performed By: #### B C #### [facility] [address] [place], [place] 9326383 Vending Service Technician: Stu Baires MD Urea nitrogen [Mass/Vol] 13 mg/dL Normal 8-23 [facility] Comment on above: Performed By: #### B C #### [facility] [address] [place] [address] Vending Service Technician: Stu Baires MD Microscopic Urinalysison Bacteria LM Ql (Urine sed) TRACE Abnormal None [facility] Epithelial cells LM.HPF (Urine sed) [#/Area] 0 TO 2 [facility] Interpretation and review of laboratory results Abnormal [facility] RBC LM.HPF (Urine sed) [#/Area] 0 TO 2 [facility] WBC LM.HPF (Urine sed) [#/Area] 10 TO 20 [facility] Urinalysison 01-10-2023 Bilirubin Ql (U) Negative NEGATIVE [facility] Clarity (U) Clear Clear [facility] Color (U) Yellow Yellow [facility] Glucose Test strip (U) [Mass/Vol] Negative NEGATIVE [facility] Hemoglobin Auto test strip Ql (U) Negative NEGATIVE [facility] Interpretation and review of laboratory results Abnormal [facility] Ketones (U) [Mass/Vol] Negative NEGATIVE [facility] Leukocyte esterase Test strip Ql (U) SMALL Abnormal NEGATIVE [facility] Nitrite Ql (U) Negative NEGATIVE [facility] pH (U) 5.5 [pH] 5.0 - 9.0 [facility] Protein (U) [Mass/Vol] Negative NEGATIVE [facility] Specific gravity (U) [Rel density] High 1.010 - 1.020 [facility] Urobilinogen Qn (U) Normal Normal [facility] Urinalysis, Routineon 2022 Bilirubin, SemiQt,Ur Negative Normal NEG [facility] Comment on above: Performed By: #### B C #### [facility] [address] [place] [address] Vending Service Technician: Stu Baires MD Blood, Urine Negative Normal [facility] Comment on above: Performed By: #### B C #### [facility] [address] [place] [address] Vending Service Technician: Stu Baires MD Clarity (U) Clear Normal CLEAR [facility] Comment on above: Performed By: #### B C #### [facility] [address] [place] [address] Vending Service Technician: Stu Baires MD Color (U) Yellow Normal YEL [facility] Comment on above: Performed By: #### B C #### [facility] [address] [place] [address] Vending Service Technician: Stu Baires MD Glucose Ql (U) Negative Normal NEG [facility] Comment on above: Performed By: #### B C #### [facility] [address] [place], [place] 145[address]83 Vending Service Technician: Stu Baires MD Ketones Ql (U) Negative Normal [facility]G [facility] Comment on above: Performed By: #### B C #### [facility] [address] [place], [facility]83 Vending Service Technician: Stu Baires MD Leukocyte esterase Test strip Ql (U) SMALL Abnormal NEG [facility] Comment on above: Performed By: #### B C #### [facility] [address] [place] [address] [place], [place] [phone] Vending Service Technician: Stu Baires MD Nitrite,Ur Negative Normal NEG [facility] Comment on above: Performed By: #### B C #### [facility] [address] [place] [address] Dr. [place], [facility]83 Vending Service Technician: Stu Baires MD PH,Ur 5.5 Normal 5.0-9.0 [facility] Comment on above: Performed By: #### B C #### [facility] [address] [place] [address] [place], [place] [id number] Vending Service Technician: Stu Baires MD Protein Ql (U) Negative Normal NEG [facility] Comment on above: Performed By: #### B C #### [facility] [address] [place], [facility]83 Vending Service Technician: Stu Baires MD Spec. [place]iner,Ur >1.030 High 1.010-1.020 [facility] Comment on above: Performed By: #### B C #### [facility] [address] [place] [address] [place], [place] [phone] Vending Service Technician: Stu Baires MD Urobilinogen,Ur Normal Normal NORM [facility] Comment on above: Performed By: #### B C #### [facility] [address] [place], [place] [phone] Vending Service Technician: Stu Baires MD Urinalysis,Microon 3 Bacteria TRACE Abnormal NONE [facility] Comment on above: Performed By: #### B C #### [facility] [address] [place], [place] 1646183 Vending Service Technician: Stu Baires MD Epithelial cells LM Ql (Urine sed) 0 TO 2 Normal 0-25 [facility] Comment on above: Performed By: #### B C #### [facility] [address] [place], [place] 1633283 Vending Service Technician: Stu Baires MD Urine RBC's 0 TO 2 Normal 0-2 [facility] Comment on above: Performed By: #### B C #### [facility] [address] [place], [place] 5596483 Vending Service Technician: Stu Baires MD Urine WBC's 10 TO 20 Normal 0-5 [facility] Comment on above: Performed By: #### B C #### [facility] [address] [place] [address] [place] [address] Vending Service Technician: Stu Baires MD Cult, Bloodon 10-14-2022 Cult, Blood Specimen Description .BLOOD Special Requests 10ML LHAND Culture NO GROWTH 5 DAYS Report Status FINAL 10/14/2022 [facility] Comment on above: Performed By: #### B C #### [facility] [address] [place] [address] Vending Service Technician: Stu Baires MD Cult,Bloodon 10-14-2022 Cult,Blood Specimen Description .BLOOD Special Requests 14ml rfa Culture NO GROWTH 5 DAYS Report Status FINAL 10/14/2022 [facility] Comment on above: Performed By: #### B C #### [facility] [address] [place] [address] Vending Service Technician: Stu Baires MD CBC with Diffon 10-09-2022 Abs. Basophil 0.03 k/uL Normal 0.00-0.20 [facility] Comment on above: Performed By: #### C P, CDP #### [address] [place] [address] Vending Service Technician: Stu Baires MD Abs.Imm.Granulocyte <0.03 Normal 0.00-0.30 [facility] Comment on above: Performed By: #### C P, CDP #### [address] [place] [address] Vending Service Technician: Stu Baires MD Abs.Neutrophil (Seg) 2.53 k/uL Normal 1.50-8.10 [facility] Comment on above: Performed By: #### C P, CDP #### [address] [place], [place] [id number] Vending Service Technician: Stu Baires MD Basophils/100 WBC (Bld) 1 % Normal 0-2 [facility] Comment on above: Performed By: #### C P, CDP #### [address] [place], [place] [id number] Vending Service Technician: Stu Baires MD Eosinophils (Bld) [#/Vol] 0.06 10*3/uL Normal 0.00-0.44 [facility] Comment on above: Performed By: #### C P, CDP #### [address] [place] [address] Vending Service Technician: Stu Baires MD Eosinophils/100 WBC (Bld) 2 % Normal 1-4 [facility] Comment on above: Performed By: #### C P, CDP #### [address] [place], [place] [id number] Vending Service Technician: Stu Baires MD Erythrocyte distribution width (RBC) [Ratio] 13.0 % Normal 11.8-14.4 [facility] Comment on above: Performed By: #### C P, CDP #### [facility] [address] [place], [place] [id number] Vending Service Technician: Stu Baires MD Hematocrit (Bld) [Volume fraction] 38.9 % Normal 36.3-47.1 [facility] Comment on above: Performed By: #### C P, CDP #### [address] [place], [facility]83 Vending Service Technician: Stu Baires MD Hemoglobin (Bld) [Mass/Vol] 13.2 g/dL Normal 11.9-15.1 [facility] Comment on above: Performed By: #### C P, CDP #### [address] [place], [facility]83 Vending Service Technician: Stu Baires MD Immature granulocytes/100 WBC (Bld) 1 % High 0 [facility] Comment on above: Performed By: #### C P, CDP #### [address] [place], [facility]83 Vending Service Technician: Stu Baires MD Lymphocytes (Bld) [#/Vol] 0.71 10*3/uL Low 1.10-3.70 [facility] Comment on above: Performed By: #### C P, CDP #### [address] [place], [place] [address] Vending Service Technician: Stu Baires MD Lymphocytes/100 WBC (Bld) 18 % Low 24-43 [facility] Comment on above: Performed By: #### C P, CDP #### [address] [place], [facility]83 Vending Service Technician: Stu Baires MD MCH (RBC) [Entitic mass] 32.0 pg Normal 25.2-33.5 [facility] Comment on above: Performed By: #### C P, CDP #### [address] [place], [place] 943[address]83 Vending Service Technician: Stu Baires MD MCHC (RBC) [Mass/Vol] 33.9 g/dL Normal 28.4-34.8 [facility] Comment on above: Performed By: #### C P, CDP #### [address] [place], [place] [phone] Vending Service Technician: Stu Baires MD MCV (RBC) [Entitic vol] 94.2 fL Normal 82.6-102.9 [facility] Comment on above: Performed By: #### C P, CDP #### [address] [place], [place] [id number] Vending Service Technician: Stu Baires MD Monocytes (Bld) [#/Vol] 0.56 10*3/uL Normal 0.10-1.20 [facility] Comment on above: Performed By: #### C P, CDP #### [address] [place], [place] 2241083 Vending Service Technician: Stu Baires MD Monocytes/100 WBC (Bld) 14 % High 3-12 [facility] Comment on above: Performed By: #### C P, CDP #### [address] [place], [place] 1521483 Vending Service Technician: Stu Baires MD Neutrophil (Seg) 64 % Normal 36-65 [facility] Comment on above: Performed By: #### C P, CDP #### [facility] [address] [place] [address] [place], [place] [phone] Vending Service Technician: Stu Baires MD NRBC Automated 0.0 per 100 WBC Normal 0.0 [facility] Comment on above: Performed By: #### C P, CDP #### [address] [place], [place] [id number] Vending Service Technician: Stu Baires MD Platelet mean volume (Bld) [Entitic vol] 11.1 fL Normal 8.1-13.5 [facility] Comment on above: Performed By: #### C P, CDP #### [facility] [address] [place], [place] [phone] Vending Service Technician: Stu Baires MD Platelets (Bld) [#/Vol] 221 10*3/uL Normal 138-453 [facility] Comment on above: Performed By: #### C P, CDP #### [facility] [address] [place], [place] 5519583 Vending Service Technician: Stu Baires MD RBC (Bld) [#/Vol] 4.13 10*6/uL Normal 3.95-5.11 [facility] Comment on above: Performed By: #### C P, CDP #### [address] [place], [place] 2755683 Vending Service Technician: Stu Baires MD WBC (Bld) [#/Vol] 3.9 10*3/uL Normal 3.5-11.3 [facility] Comment on above: Performed By: #### C P, CDP #### [address] [place], [place] [phone] Vending Service Technician: Stu Baires MD Comp Metabolic Profon 2022 Albumin [Mass/Vol] 3.4 g/dL Low 3.5-5.2 [facility] Comment on above: Performed By: #### C P, CDP #### [address] [place], [place] 8552683 Vending Service Technician: Stu Baires MD Albumin/Glob Ratio 1.2 Normal 1.0-2.5 [facility] Comment on above: Performed By: #### C P, CDP #### [facility] [address] [place], [place] 3170783 Vending Service Technician: Stu Baires MD Alkaline Phos 108 U/L High 35-104 [facility] Comment on above: Performed By: #### C P, CDP #### [facility] [address] [place], [place] 2839183 Vending Service Technician: Stu Baires MD ALT [Catalytic activity/Vol] 30 U/L Normal 5-33 [facility] Comment on above: Performed By: #### C P, CDP #### [facility] [address] [place], [place] [phone] Vending Service Technician: Stu Baires MD Anion gap [Moles/Vol] 8 mmol/L Low 9-17 [facility] Comment on above: Performed By: #### C P, CDP #### [facility] [address] [place], [place] 6449283 Vending Service Technician: Stu Baires MD AST [Catalytic activity/Vol] 29 U/L Normal <32 [facility] Comment on above: Performed By: #### C P, CDP #### [facility] [address] [place], [place] 7654583 Vending Service Technician: Stu Baires MD Bilirubin [Mass/Vol] 0.5 mg/dL Normal 0.3-1.2 [facility] Comment on above: Performed By: #### C P, CDP #### [facility] [address] [place], [place] 3385083 Vending Service Technician: Stu Baires MD BUN/CRE Ratio 18 Normal 9-20 [facility] Comment on above: Performed By: #### C P, CDP #### [facility] [address] [place], [place] 8436583 Vending Service Technician: Stu Baires MD Calcium [Mass/Vol] 8.4 mg/dL Low 8.6-10.4 [facility] Comment on above: Performed By: #### C P, CDP #### [facility] [address] [place], [place] 0028083 Vending Service Technician: Stu Baires MD Chloride [Moles/Vol] 105 mmol/L Normal 98-107 [facility] Comment on above: Performed By: #### C P, CDP #### [facility] [address] [place] [address] Vending Service Technician: Stu Baires MD CO2 [Moles/Vol] 23 mmol/L Normal 20-31 [facility] Comment on above: Performed By: #### C P, CDP #### [facility] [address] [place] [address] Vending Service Technician: Stu Baires MD Creatinine [Mass/Vol] 0.49 mg/dL Low 0.50-0.90 [facility] Comment on above: Performed By: #### C P, CDP #### [facility] [address] [place] [address] Vending Service Technician: Stu Baires MD GFR/1.73 sq M.predicted among non-blacks MDRD (S/P/Bld) [Vol rate/Area] mL/min/{1.73_m2} Normal >60 [facility] Comment on above: Result Comment: These [...] By: #### C P, CDP #### [facility] [address] [place] [address] Vending Service Technician: Stu Baires MD Glucose [Mass/Vol] 102 mg/dL High 70-99 [facility] Comment on above: Performed By: #### C P, CDP #### [facility] [address] [place] [address] Vending Service Technician: Stu Baires MD Potassium [Moles/Vol] 3.6 mmol/L Low 3.7-5.3 [facility] Comment on above: Performed By: #### C P, CDP #### [facility] [address] [place], [place] 4699183 Vending Service Technician: Stu Baires MD Protein [Mass/Vol] 6.2 g/dL Low 6.4-8.3 [facility] Comment on above: Performed By: #### C P, CDP #### [facility] [address] [place], [place] 9266783 Vending Service Technician: Stu Baires MD Sodium [Moles/Vol] 136 mmol/L Normal 135-144 [facility] Comment on above: Performed By: #### C P, CDP #### [address] [place], [place] 1938883 Vending Service Technician: Stu Baires MD Urea nitrogen [Mass/Vol] 9 mg/dL Normal 6-20 [facility] Comment on above: Performed By: #### C P, CDP #### [address] [place], [place] [phone] Vending Service Technician: Stu Baires MD Lactic Acidon Lactate [Moles/Vol] 1.0 mmol/L Normal 0.5-2.2 [facility] Comment on above: Performed By: #### L ACTIC #### [facility] [address] [place] [address] [place], [place] 1774683 Vending Service Technician: Stu Baires MD Urinalysis, Routineon 2022 Bilirubin, SemiQt,Ur Negative Normal NEG [facility] Comment on above: Performed By: #### U MICAO, UA #### [address] [place], [place] 3528183 Vending Service Technician: Stu Baires MD Blood, Urine Negative Normal NEG [facility] Comment on above: Performed By: #### U MICAO, UA #### [facility] [address] [place], [place] 9151483 Vending Service Technician: Stu Baires MD Clarity (U) Clear Normal CLEAR [facility] Comment on above: Performed By: #### U MICAO, UA #### [facility] [address] [place] [address] [place], [place] [phone] Vending Service Technician: Stu Baires MD Color (U) Yellow Normal YEL [facility] Comment on above: Performed By: #### U MICAO, UA #### [facility] [address] [place] [address] [place], [place] 3556783 Vending Service Technician: Stu Baires MD Glucose Ql (U) Negative Normal NEG [facility] Comment on above: Performed By: #### U MICAO, UA #### [facility] [address] [place] [address] [place], [place] 8324083 Vending Service Technician: Stu Baires MD Ketones Ql (U) Negative Normal NEG [facility] Comment on above: Performed By: #### U MICAO, UA #### [address] [place], [place] [phone] Vending Service Technician: Stu Baires MD Leukocyte esterase Test strip Ql (U) TRACE Abnormal NEG [facility] Comment on above: Performed By: #### U MICAO, UA #### [facility] [address] [place] [address] Dr[place], [place] [phone] Vending Service Technician: Stu Baires MD Nitrite,Ur Negative Normal NEG [facility] Comment on above: Performed By: #### U MICAO, UA #### [address] [place] [address] Vending Service Technician: Stu Baires MD PH,Ur 6.0 Normal 5.0-9.0 [facility] Comment on above: Performed By: #### U MICAO, UA #### [facility] [address] [place] [address] Dr[place], [place] [phone] Vending Service Technician: Stu Baires MD Protein Ql (U) 1+ Abnormal NEG [facility] Comment on above: Performed By: #### U TISHAO, UA #### [facility] [address] [place], [place] 7659383 Vending Service Technician: Stu Baiers MD Spec. Weiner,Ur >1.030 High 1.010-1.020 [facility] Comment on above: Performed By: #### U TISHAO, UA #### [facility] [address] [place], [place] 8550583 Vending Service Technician: Stu Baires MD Urobilinogen,Ur Normal Normal NORM [facility] Comment on above: Performed By: #### U TISHAO, UA #### [facility] [address] [place] [address] Dr. [place], [place] [phone] Vending Service Technician: Stu Baires MD Urinalysis,Microon 3 Bacteria 2+ Abnormal NONE [facility] Comment on above: Performed By: #### U TISHAO, UA #### [address] [place], [place] 1086583 Vending Service Technician: Stu Baires MD Epithelial cells LM Ql (Urine sed) 2 TO 5 Normal 0-25 [facility] Comment on above: Performed By: #### U TISHAO, UA #### [facility] [address] [place] [address] Dr. [place], [place] [phone] Vending Service Technician: Stu Baires MD Mucus Strands 1+ Abnormal NONE [facility] Comment on above: Performed By: #### U TISHAO, UA #### [facility] [address] [place], [place] 5992883 Vending Service Technician: Stu Baires MD Urine RBC's None Normal 0-2 [facility] Comment on above: Performed By: #### U MICAO, UA #### [facility] [address] [place], [place] 7473383 Vending Service Technician: Stu Baires MD Urine WBC's 2 TO 5 Normal 0-5 [facility] Comment on above: Performed By: #### U MICAO, UA #### [facility] [address] [place], [place] 6077883 Vending Service Technician: Stu Baires MD FREE T3on 06-19-2022 FREE T3 4.07 pg/mlL Critically high 2.18-3.[address] [facility] Comment on above: Performed By: #### T 4, FT3, TSH ####[facility] [id number] [place] [address]Dr. Vicenta Bryant T4on 06-19-2022 T4 [Mass/Vol] 7.70 ug/dL Normal 4.80-13.90 [facility] Comment on above: Performed By: #### T 4, FT3, TSH ####[facility] [id number] [place] [address]Dr. Vicenta Bryant TSHon 06-19-2022 TSH 4.022 uIU/mL Critically high 0.358-3.740 [facility] Comment on above: Performed By: #### T 4, FT3, TSH ####[facility] [id number] [place] [address]Dr. Vicenta Bryant FREE T3on 05-23-2022 FREE T3 3.87 pg/mlL Normal 2.18-3.98 [facility] Comment on above: Performed By: #### T SH, FT3, T4 #### [facility] [address] [place] [address] [address] Vicenta Bryant T4on 05-23-2022 T4 [Mass/Vol] 7.00 ug/dL Normal 4.80-13.90 [facility] Comment on above: Performed By: #### T SH, FT3, T4 #### [facility] [address] [place] [address] [address] Vicenta Bryant TSHon 05-23-2022 TSH 4.402 uIU/mL Critically high 0.358-3.740 [facility] Comment on above: Performed By: #### T SH, FT3, T4 #### [facility] [address], [place] [address] Dr. Vicenta Bryant MG MAMM DX FLAQUITA 3D FU CADon 0 03-28-2022 MG MAMM DX FLAQUITA 3D FU CAD Patient: YAS KURTZ Exam Date: 03/28/2022 : 1960 Gender:F Ordering : DR BULMARO PADRON . Admission #: [id number] Family : Order #: [id number] CLICK HERE TO VIEW EXAM RADIOLOGY REPORT [...] lung cancer at age 57. LOCATION: [facility] BREAST COMPOSITION: Almost entirely fatty. FINDINGS: DIAGNOSTIC [...] Cobian M.D. on 03/28/2022 at 11:35 Normal [facility] OCC BLD IMMUNO SCREENon 03-15 OCCULT BLOOD Negative Normal NEGATIVE [facility] Comment on above: Performed By: #### O BSCRN #### [facility] [address], [place] [address] Dr. Vicenta Bryant INSULINon 08-24-2022 Insulin 10.8 uIU/mL Normal 2.6-24.9 [facility] Comment on above: Performed By: #### I NSULIN #### [facility] [address], [place] [address] Dr. Vicenta Bryant T4, T3U, FTI [facility]on 03-07 Free Thyroxine Index 1.9 Normal 1.2-4.9 [facility] Comment on above: Performed By: #### T HYLC ####[facility] [id number] [place], [place] [address]OtDr. Vicenta Bryant T3 Uptake 25 % Normal 24-39 [facility] Comment on above: Performed By: #### T HYLC ####[facility] [id number] [place], [place] [address]OvDr. Vicenta Bryant T4 [Mass/Vol] 7.6 ug/dL Normal 4.5-12.0 [facility] Comment on above: Performed By: #### T HYLC ####[facility] [id number] [place], [place] [address]ZrDr. Vicenta Bryant VIT D 25-[place] [facility] 2021 Vitamin D, 25-Hydroxy 24.3 ng/mL Critically low 30.0-100.0 [facility] Comment on above: Result Comment: Susi min D deficiency has been defined by the Thompson of Medicine and an Endocrine Society practice guideline as a level of serum 25-OH vitamin D less than 20 ng/mL (1,2). The Endocrine Society went on to further define vitamin D insufficiency as a level between 21 and 29 ng/mL (2). 1. IOM (Thompson of Medicine). 2010. Dietary reference intakes for calcium and D. [place]: The National Academies Press. 2. Dea MF, Angelika NC, Nae-Huber SHEARER, et al. Evaluation, treatment, and prevention of vitamin D deficiency: an Endocrine Society clinical practice guideline. JCEM. 2010; 96(7):1911-30. Performed By: #### V ITADLC ####[facility] [id number] [place] [id number]. Vicenta Bryant CBC AUTO DIFFon 03-06-2022 BASO # 0.0 103/ul Normal 0.0-0.1 [facility] Comment on above: Performed By: #### C BC #### [facility] [address] [place] [address] Dr. Vicenta Bryant Basophils/100 WBC (Bld) 0.6 % Normal 0.2-2.0 [facility] Comment on above: Performed By: #### C BC #### [facility] [address] [place] [address] Dr. Vicenta Bryant EO # 0.1 103/ul Normal 0.0-0.7 [facility] Comment on above: Performed By: #### C BC #### [facility] [address] [place] [address] Dr. Vicenta Bryant Eosinophils/100 WBC (Bld) 1.1 % Normal 0.9-7.0 [facility] Comment on above: Performed By: #### C BC #### [facility] [address] [place] [address] Dr. Vicenta Bryant Erythrocyte distribution width (RBC) [Ratio] 12.6 % Normal 11.0-15.0 [facility] Comment on above: Performed By: #### C BC #### [facility] [address] [place] [address] Dr. Vicenta Bryant Hematocrit (Bld) [Volume fraction] 41.1 % Normal 36.0-48.0 [facility] Comment on above: Performed By: #### C BC #### [facility] [address] [place] [address] Dr. Vicenta Bryant Hemoglobin (Bld) [Mass/Vol] 13.4 g/dL Normal 12.0-16.0 [facility] Comment on above: Performed By: #### C BC #### [facility] [address] [place] [address] Dr. Vicenta Bryant IG # 0.01 10e3/ul Normal 0.00-0.03 [facility] Comment on above: Performed By: #### C BC #### [facility] [address] [place] [address] Dr. Vicenta Bryant IG % 0.2 % Normal 0.0-0.5 [facility] Comment on above: Performed By: #### C BC #### [facility] [address] [place] [address] Dr. Vicenta Bryant LYMPH # 1.6 103/ul Normal 1.2-3.8 [facility] Comment on above: Performed By: #### C BC #### [facility] [address] [place] [address] Dr. Vicenta Bryant Lymphocytes/100 WBC (Bld) 25.6 % Normal 20.5-60.0 [facility] Comment on above: Performed By: #### C BC #### [facility] [address] [place] [address] Dr. Vicenta Bryant MANUAL DIFF REQ NO Normal [facility] Comment on above: Performed By: #### C BC #### [facility] [address] [place] [address] Dr. Vicenta Bryant MCH (RBC) [Entitic mass] 31.0 pg Normal 26.7-34.0 [facility] Comment on above: Performed By: #### C BC #### [facility] [address] [place] [address] Dr. Vicenta Bryant MCHC (RBC) [Mass/Vol] 32.6 g/dL Normal 29.9-35.2 [facility] Comment on above: Performed By: #### C BC #### [facility] [address] [place] [address] Dr. Vicenta Bryant MCV (RBC) [Entitic vol] 95.1 fL Normal 81.0-99.0 [facility] Comment on above: Performed By: #### C BC #### [facility] [address] [place] [address] Dr. Vicenta Bryant MONO # 0.5 103/ul Normal 0.3-0.8 [facility] Comment on above: Performed By: #### C BC #### [facility] [address] [place] [address] Dr. Vicenta Bryant Monocytes/100 WBC (Bld) 7.8 % Normal 1.7-12.0 [facility] Comment on above: Performed By: #### C BC #### [facility] [address] [place] [address] [address] Vicenta Bryant NEUT # 4.0 103/ul Normal 1.4-6.5 [facility] Comment on above: Performed By: #### C BC #### [facility] [address] [place] [address] [address] Vicenta Bryant Neutrophils/100 WBC (Bld) 64.7 % Normal 43.0-75.0 [facility] Comment on above: Performed By: #### C BC #### [facility] [address] [place] [address] [address] Vicenta Bryant Platelet mean volume (Bld) [Entitic vol] 10.8 fL Normal 9.5-13.5 [facility] Comment on above: Performed By: #### C BC #### [facility] [address] [place] [address] [address] Vicenta Bryant PLT 210 103/ul Normal 150-450 [facility] Comment on above: Performed By: #### C BC #### [facility] [address] [place] [address] [address] Vicenta Bryant RBC 4.32 106/ul Normal 4.20-5.40 [facility] Comment on above: Performed By: #### C BC #### [facility] [address] [place] [address] [address] Vicenta Bryant WBC 6.2 103/ul Normal 4.0-11.0 [facility] Comment on above: Performed By: #### C BC #### [facility] [address] [place] [address] Dr. Vicenta Bryant GLYCOHEMOGLOBIN A1Con 2021 ADA RECOMMENDATION SEE BELOW Normal [facility] Comment on above: Result Comment: ADA RECOMMENDED LIMIT 4.0 - 6.0 ADA THERAPEUTIC TARGET < 7.0 ACTION SUGGESTED > 7.0 Performed By: #### A 1C #### [facility] [address] [place] [address] [address] Vicenta Bryant Glucose [Mass/Vol] 91 mg/dL Normal [facility] Comment on above: Performed By: #### A 1C #### [facility] [address], [place] [address] Dr. Vicenta Bryant HbA1c (Bld) [Mass fraction] 4.8 % Normal 4.5-6.2 [facility] Comment on above: Performed By: #### A 1C #### [facility] [address], [place] [address] Dr. Vicenta Bryant IRONon 03-06-2022 Iron [Mass/Vol] 73.0 ug/dL Normal 50.0-170.0 [facility] Comment on above: Performed By: #### B 12FOL, IRON ####[facility] [id number] [place], [place] [address]InDr. Vicenta Bryant LIPID PROFILEon 03-06-2022 CHOL-HDL RATIO NORM SEE BELOW Normal [facility] Comment on above: Result Comment: 3.3 - 4.4 LOW RISK 4.4 - 7.1 AVERAGE RISK 7.1 - 11.0 MODERATE RISK >11.0 HIGH RISK Performed By: #### L IPID, TSH, CMP ####[facility] [address] [place], [place] [address]Tm. Vicenta Bryant Cholesterol [Mass/Vol] 134 mg/dL Normal <=200 [facility] Comment on above: Performed By: #### L IPID, TSH, CMP ####[facility] [address]cxn[address] [place], [place] [address]Sx. Vicenta Bryant Cholesterol in HDL [Mass/Vol] 41 mg/dL Normal 40-60 [facility] Comment on above: Performed By: #### L IPID, TSH, CMP ####[facility] [address]fr[address]ds[address] [place], [place] [address]Kf. Vicenta Bryant Cholesterol in LDL [Mass/Vol] 81.2 mg/dL Normal [facility] Comment on above: Performed By: #### L IPID, TSH, CMP ####[facility] [address] [place], [place] [address]Ft. Vicenta Bryant Cholesterol.total/C holesterol in HDL [Mass ratio] 3.3 {ratio} Normal [facility] Comment on above: Performed By: #### L IPID, TSH, CMP ####[facility] [address] [place] [address]Dr. Vicenta Bryant HDL NORMAL > or = 60 mg/dl - LO W CARDIOVASCULAR RISK <40 mg/dl - HIGH CARDIOVASCULAR RISK Normal [facility] Comment on above: Performed By: #### L IPID, TSH, CMP ####[facility] [address] [place] [address]Dr. Vicenta Bryant LDL CALC NORMAL SEE BELOW Normal [facility] Comment on above: Result Comment: <100 mg/dl OPTIMAL 100 - 129 mg/dl NEAR OR ABOVE OPTIMAL 130 - 159 mg/dl BORDERLINE HIGH 160 - 189 mg/dl HIGH >190 mg/dl VERY HIGH Performed By: #### L IPID, TSH, CMP ####[facility] [address]ro[address] [place] [address]Dr. Vicenta Bryant Triglyceride [Mass/Vol] 59 mg/dL Normal <=150 [facility] Comment on above: Performed By: #### L IPID, TSH, CMP ####[facility] [address]qw[address]fqwlhb[address] [place] [address]Dr. Vicenta Bryant VLDL CALC 11.8 mg/dL Normal [facility] Comment on above: Performed By: #### L IPID, TSH, CMP ####[facility] [address]irtvgdm[address] [place] [address]Dr. Vicenta Bryant PROF 14(COMP METB)on 022 Albumin [Mass/Vol] 3.7 g/dL Normal 3.4-5.0 [facility] Comment on above: Performed By: #### L IPID, TSH, CMP ####[facility] Fxanphmwkh[address] [place] [address]Dr. Vicenta Bryant Albumin/Globulin [Mass ratio] 1.1 {ratio} Normal [facility] Comment on above: Performed By: #### L IPID, TSH, CMP ####[facility] [address]clgrvxfr[address] [place] [address]Dr. Vicenta Bryant ALP [Catalytic activity/Vol] 115 U/L Normal 46-116 [facility] Comment on above: Performed By: #### L IPID, TSH, CMP ####[facility] Wbwmpkvxad[address] [place] [address]Dr. Vicenta Bryant ALT [Catalytic activity/Vol] 38 U/L Normal 14-59 [facility] Comment on above: Performed By: #### L IPID, TSH, CMP ####[facility] Pweoopqees[address] [place] [address]Dr. Vicenta Bryant Anion gap [Moles/Vol] 12.4 mmol/L Normal [facility] Comment on above: Performed By: #### L IPID, TSH, CMP ####[facility] [address] [place], [place] [address]Dr. Vicenta Bryant AST [Catalytic activity/Vol] 27 U/L Normal 15-37 [facility] Comment on above: Performed By: #### L IPID, TSH, CMP ####[facility] [address] [place], [place] [address]Dr. Vicenta Bryant Bilirubin [Mass/Vol] 0.3 mg/dL Normal 0.2-1.0 [facility] Comment on above: Performed By: #### L IPID, TSH, CMP ####[facility] [address] [place], [place] [address]Dr. Vicenta Bryant Calcium [Mass/Vol] 8.9 mg/dL Normal 8.5-10.1 [facility] Comment on above: Performed By: #### L IPID, TSH, CMP ####[facility] [address] [place], [place] [address]Dr. Vicenta Bryant Chloride [Moles/Vol] 104 mmol/L Normal 98-107 [facility] Comment on above: Performed By: #### L IPID, TSH, CMP ####[facility] [address]rx[address] [place], [place] [address]Dr. Vicenta Bryant CO2 [Moles/Vol] 27.8 mmol/L Normal 21.0-32.0 [facility] Comment on above: Performed By: #### L IPID, TSH, CMP ####[facility] [address]rg[address]ohw[address] [place] [address]Dr. Vicenta Bryant Creatinine [Mass/Vol] 0.53 mg/dL Critically low 0.55-1.02 [facility] Comment on above: Performed By: #### L IPID, TSH, CMP ####[facility] [address]bxnfbm[address] [place] [address]Dr. Vicenta Bryant EGFR-AF CENTRAL AFRICAN >60 Normal >=60 [facility] Comment on above: Performed By: #### L IPID, TSH, CMP ####[facility] [address] [place] [address]Dr. Vicenta Bryant EGFR-NON AF CENTRAL AFRICAN >60 Normal >=60 [facility] Comment on above: Performed By: #### L IPID, TSH, CMP ####[facility] Cxem[address]ubs[address] [place], [place] [address]Dr. Vicenta Bryant Globulin (S) [Mass/Vol] 3.3 g/dL Normal [facility] Comment on above: Performed By: #### L IPID, TSH, CMP ####[facility] [address] [place], [place] [address]Dr. Vicenta Bryant Glucose [Mass/Vol] 88 mg/dL Normal 74-106 [facility] Comment on above: Performed By: #### L IPID, TSH, CMP ####[facility] [address]htgbqpsk[address] [place] [address]Dr. Jocydawn Bryant Potassium [Moles/Vol] 4.4 mmol/L Normal 3.5-5.1 [facility] Comment on above: Performed By: #### L IPID, TSH, CMP ####[facility] [address]qzsxxsfl[address] [place] [address]Dr. Vicenta Bryant Protein [Mass/Vol] 7.0 g/dL Normal 6.4-8.2 [facility] Comment on above: Performed By: #### L IPID, TSH, CMP ####[facility] Xbbiwpvorq[address] [place] [address]Dr. Vicenta Bryant Sodium [Moles/Vol] 139 mmol/L Normal 136-145 [facility] Comment on above: Performed By: #### L IPID, TSH, CMP ####[facility] [address]bp[address] [place] [id number]. Vicenta Bryant Urea nitrogen [Mass/Vol] 10.0 mg/dL Normal 7.0-18.0 [facility] Comment on above: Performed By: #### L IPID, TSH, CMP ####[facility] [address] [place] [id number]. Vicenta Manny Urea nitrogen/Creatinine [Mass ratio] 18.8 mg/mg Normal [facility] Comment on above: Performed By: #### L IPID, TSH, CMP ####[facility] [address]wrnlzvp[address] [place] [address]Dr. Jocydawn Manny TSHon 03-06-2022 TSH 4.364 uIU/mL Critically high 0.358-3.740 [facility] Comment on above: Performed By: #### L IPID, TSH, CMP ####[facility] [address]te[address]muj[address] [place] [id number]. Vicenta Bryant VIT B12 AND FOLATEon 022 Cobalamin (Vitamin B12) [Mass/Vol] 761.0 pg/mL Normal 193.0-986.0 [facility] Comment on above: Performed By: #### B 12FOL, IRON ####[facility] [address]vhtfbdrkm7[address] [place] [id number]. Vicenta Manny FOLATE 15.40 ng/mL Normal 8.60-58.90 [facility] Comment on above: Performed By: #### B 12FOL, IRON ####[facility] [address] [place] [id number]. Vicenta Bryant MAMMO POST BIOPSY LEFTon MAMMO POST BIOPSY LEFT Patient: YAS KURTZ Exam Date: 07/25/2021 : 1960 Gender:F Ordering : DR BULMARO PADRON . Admission #: [id number] Family : Order #: [id number] CLICK HERE TO VIEW EXAM This report [...] Cobian M.D. on 08/03/2021 at 07:08 Normal [facility] US VAC ASST BX BRST LT W CLI Aryan 07-25-2021 US VAC ASST BX BRST LT W CLIP Patient: YAS KURTZ Exam Date: 07/25/2021 : 1960 Gender:F Ordering : DR BULMARO PADRON . Admission #: [id number] Family : Order #: [id number] CLICK HERE TO VIEW EXAM This report [...] M.D. on 08/03/2021 at 07:07 Normal [facility] MG MAMM LT DIAG W CADon -0 MG MAMM LT DIAG W CAD Patient: YAS KURTZ Exam Date: 07/20/2021 : 1960 Gender:F Ordering : DR BULMARO PADRON . Admission #: [id number] Family : Order #: [id number] CLICK HERE TO VIEW EXAM RADIOLOGY REPORT [...] lung cancer at age 57. LOCATION: [facility] BREAST COMPOSITION: Almost entirely fatty. FINDINGS: DIAGNOSTIC [...] M.D. on 07/20/2021 at 15:20 Normal [facility] US BREAST LEFT LIMITEDon US BREAST LEFT LIMITED Patient: YAS KURTZ Exam Date: 07/20/2021 : 1960 Gender:F Ordering : DR BULMARO PADRON . Admission #: [id number] Family : Order #: [id number] CLICK HERE TO VIEW EXAM RADIOLOGY REPORT [...] lung cancer at age 57. LOCATION: [facility] BREAST COMPOSITION: Almost entirely fatty. FINDINGS: DIAGNOSTIC [...] M.D. on 07/20/2021 at 14:55 Approved by: Clauyd Cobian M.D. on 07/20/2021 at 15:20 Normal [facility] JOSE Antinuclear Antibodieson 08-08-2020 JOSE IFA Note 1 Normal . [facility] Comment on above: Order Comment: Speci men Comment: Test(s) 548174-Afrd-R2 MUSIC INSTRUCTOR (Fibrillarin)(RDL) Specimen Comment: was developed and its performance characteristics Specimen Comment: determined by [facility]. It has not been cleared or approved Specimen Comment: by the Food and Drug Administration. Specimen Comment: Test(s) 084229-Rwil-ON/Scl-75 Ab (RDL) Specimen Comment: was developed and [...] titers Nucleosomes, Histones Drug-induced SLE Speckled Sm, MUSIC INSTRUCTOR, SCL-70, SLE,MCTD,PSS (diffuse form), SS-A/SS-B Sjogrens Nucleolar SCL-70, PM-1/SCL High titers Scleroderma, PM/DM Centromere Centromere PSS (limited form) w/Crest syndrome variable Nuclear Dot Sp100,f76-ungyub Primary Biliary Cirrhosis Nuclear GP210, Primary Biliary Cirrhosis Membrane rosi A,B,C Performed at: [address] [id number] Vending Service Technician: David Pace PhD, Phone: [phone] Performed By: #### A NTIR, RNA POLYMR, HEP C, ANTI TH TO, HBCAB, PM-SCL ABS, U3 MUSIC INSTRUCTOR, HBSAG, HBSAB, JOSE #### [facility] , #### CRP, CK, CMP #### [address] Antinuclear Abs, IFA Positive Critically abnormal . [facility] Comment on above: Order Comment: Speci men Comment: Test(s) 994318-Fnsb-S6 MUSIC INSTRUCTOR (Fibrillarin)(RDL) Specimen Comment: was developed and its performance characteristics Specimen Comment: determined by [facility]. It has not been cleared or approved Specimen Comment: by the Food and Drug Administration. Specimen Comment: Test(s) 628069-Zzeu-WT/Scl-75 Ab (RDL) Specimen Comment: was developed and its performance characteristics Specimen Comment: determined by [facility]. It has not been cleared or approved Specimen Comment: by the Food and Drug Administration. Result Comment: Nega tive <1:80 Borderline 1:80 Positive >1:80 Performed By: #### A NTIR, RNA POLYMR, HEP C, ANTI TH TO, HBCAB, PM-SCL ABS, U3 MUSIC INSTRUCTOR, HBSAG, HBSAB, JOSE #### [facility] , #### CRP, CK, CMP #### [facility] [address] Speckled Pattern 1:640 High . [facility] Comment on above: Order Comment: Speci men Comment: Test(s) 144833-Gsea-K0 MUSIC INSTRUCTOR (Fibrillarin)(RDL) Specimen Comment: was developed and its performance characteristics Specimen Comment: determined by [facility]. It has not been cleared or approved Specimen Comment: by the Food and Drug Administration. Specimen Comment: Test(s) 965975-Mvtn-JY/Scl-75 Ab (RDL) Specimen Comment: was developed and its performance characteristics Specimen Comment: determined by [facility]. It has not been cleared or approved Specimen Comment: by the Food and Drug Administration. Performed By: #### A NTIR, RNA POLYMR, HEP C, ANTI TH TO, HBCAB, PM-SCL ABS, U3 MUSIC INSTRUCTOR, HBSAG, HBSAB, JOSE #### [facility] , #### CRP, CK, CMP #### [facility] [address] [place] [address] [place] Anti-RNPon 08-08-2020 Anti-MUSIC INSTRUCTOR <0.2 Normal 0.0-0.9 [facility] Comment on above: Order Comment: Speci men Comment: Test(s) 283672-Kvuf-H1 MUSIC INSTRUCTOR (Fibrillarin)(RDL) Specimen Comment: was developed and its performance characteristics Specimen Comment: determined by [facility]. It has not been cleared or approved Specimen Comment: by the Food and Drug Administration. Specimen Comment: Test(s) 037418-Kxda-YC/Scl-75 Ab (RDL) Specimen Comment: was developed and its performance characteristics Specimen Comment: determined by [facility]. It has not been cleared or approved Specimen Comment: by the Food and Drug Administration. Result Comment: Perf ormed at: - [facility] [address] [id number] Vending Service Technician: David Pace PhD, Phone: [phone] Performed By: #### A NTIR, RNA POLYMR, HEP C, ANTI TH TO, HBCAB, PM-SCL ABS, U3 MUSIC INSTRUCTOR, HBSAG, HBSAB, JOSE #### [facility] , #### CRP, CK, CMP #### [address] C-Reactive Proteinon CRP [Mass/Vol] 0.6 mg/dL Normal 0.0-1.0 [facility] Comment on above: Result Comment: PERF ORMED BY: [place] [address] PATHOLOGIST RACEHORSE TRAINER BEAU JOHNSON M.D. Performed By: #### A NTIR, RNA POLYMR, HEP C, ANTI TH TO, HBCAB, PM-SCL ABS, U3 MUSIC INSTRUCTOR, HBSAG, HBSAB, JOSE #### [facility] , #### CRP, CK, CMP #### [address] Complement C3on 08-08-2020 Complement C3 125 mg/dL Normal 82-167 [facility] Comment on above: Result Comment: Perf ormed at: [address] [id number] Vending Service Technician: David Pace PhD, Phone: [phone] Performed By: #### A NTIR, RNA POLYMR, HEP C, ANTI TH TO, HBCAB, PM-SCL ABS, U3 MUSIC INSTRUCTOR, HBSAG, HBSAB, JOSE #### [facility] , #### CRP, CK, CMP #### [address] Complement C4on 08-08-2020 Complement C4 17 mg/dL Normal 12-38 [facility] Comment on above: Performed By: #### A NTIR, RNA POLYMR, HEP C, ANTI TH TO, HBCAB, PM-SCL ABS, U3 MUSIC INSTRUCTOR, HBSAG, HBSAB, JOSE #### [facility] , #### CRP, CK, CMP #### [address] Complement Total (CH50)on Complement Total (CH50) >60 Normal >41 [facility] Comment on above: Result Comment: Age [...] range values. Performed at: - [facility] [address] [id number] Vending Service Technician: David Pace PhD, Phone: [phone] PERFORMED BY: [place] [address] PATHOLOGIST RACEHORSE TRAINER BEAU JOHNSON M.D. Performed By: #### A NTIR, RNA POLYMR, HEP C, ANTI TH TO, HBCAB, PM-SCL ABS, U3 MUSIC INSTRUCTOR, HBSAG, HBSAB, JOSE #### [facility] , #### CRP, CK, CMP #### [address] Complete Blood Count Auto Di ffon 08-08-2020 Basophils (Bld) [#/Vol] 0.0 10*3/uL Normal 0.0-0.2 [facility] Comment on above: Performed By: #### A NTIR, RNA POLYMR, HEP C, ANTI TH TO, HBCAB, PM-SCL ABS, U3 MUSIC INSTRUCTOR, HBSAG, HBSAB, JOSE #### [facility] , #### CRP, CK, CMP #### [address] Basophils/100 WBC (Bld) 0.4 % Normal . [facility] Comment on above: Performed By: #### A NTIR, RNA POLYMR, HEP C, ANTI TH TO, HBCAB, PM-SCL ABS, U3 MUSIC INSTRUCTOR, HBSAG, HBSAB, JOSE #### [facility] , #### CRP, CK, CMP #### [address] Eosinophils (Bld) [#/Vol] 0.0 10*3/uL Normal 0.0-0.45 [facility] Comment on above: Performed By: #### A NTIR, RNA POLYMR, HEP C, ANTI TH TO, HBCAB, PM-SCL ABS, U3 MUSIC INSTRUCTOR, HBSAG, HBSAB, JOSE #### [facility] , #### CRP, CK, CMP #### [address] Eosinophils/100 WBC (Bld) 0.6 % Normal . [facility] Comment on above: Performed By: #### A NTIR, RNA POLYMR, HEP C, ANTI TH TO, HBCAB, PM-SCL ABS, U3 MUSIC INSTRUCTOR, HBSAG, HBSAB, JOSE #### [facility] , #### CRP, CK, CMP #### [address] Erythrocyte distribution width (RBC) [Ratio] 12.7 % Normal 11.9-15.3 [facility] Comment on above: Performed By: #### A NTIR, RNA POLYMR, HEP C, ANTI TH TO, HBCAB, PM-SCL ABS, U3 MUSIC INSTRUCTOR, HBSAG, HBSAB, JOSE #### [facility] , #### CRP, CK, CMP #### [address] Hematocrit (Bld) [Volume fraction] 40.9 % Normal 34.0-46.4 [facility] Comment on above: Performed By: #### A NTIR, RNA POLYMR, HEP C, ANTI TH TO, HBCAB, PM-SCL ABS, U3 MUSIC INSTRUCTOR, HBSAG, HBSAB, JOSE #### [facility] , #### CRP, CK, CMP #### [address] Hemoglobin (Bld) [Mass/Vol] 13.5 g/dL Normal 11.8-15.4 [facility] Comment on above: Performed By: #### A NTIR, RNA POLYMR, HEP C, ANTI TH TO, HBCAB, PM-SCL ABS, U3 MUSIC INSTRUCTOR, HBSAG, HBSAB, JOSE #### [facility] , #### CRP, CK, CMP #### [address] Lymphocytes (Bld) [#/Vol] 1.7 10*3/uL Normal 1.00-4.8 [facility] Comment on above: Performed By: #### A NTIR, RNA POLYMR, HEP C, ANTI TH TO, HBCAB, PM-SCL ABS, U3 MUSIC INSTRUCTOR, HBSAG, HBSAB, JOSE #### [facility] , #### CRP, CK, CMP #### [address] Lymphocytes/100 WBC (Bld) 25.7 % Normal . [facility] Comment on above: Performed By: #### A NTIR, RNA POLYMR, HEP C, ANTI TH TO, HBCAB, PM-SCL ABS, U3 MUSIC INSTRUCTOR, HBSAG, HBSAB, JOSE #### [facility] , #### CRP, CK, CMP #### [address] MCH (RBC) [Entitic mass] 32.9 g/dL Normal 32.0-35.0 [facility] Comment on above: Performed By: #### A NTIR, RNA POLYMR, HEP C, ANTI TH TO, HBCAB, PM-SCL ABS, U3 MUSIC INSTRUCTOR, HBSAG, HBSAB, JOSE #### [facility] , #### CRP, CK, CMP #### [address] MCH (RBC) [Entitic mass] 31.1 pg Normal 24.7-34.3 [facility] Comment on above: Performed By: #### A NTIR, RNA POLYMR, HEP C, ANTI TH TO, HBCAB, PM-SCL ABS, U3 MUSIC INSTRUCTOR, HBSAG, HBSAB, JOSE #### [facility] , #### CRP, CK, CMP #### [address] MCV (RBC) [Entitic vol] 94.4 fL Normal 80-100 [facility] Comment on above: Performed By: #### A NTIR, RNA POLYMR, HEP C, ANTI TH TO, HBCAB, PM-SCL ABS, U3 MUSIC INSTRUCTOR, HBSAG, HBSAB, JOSE #### [facility] , #### CRP, CK, CMP #### [address] Monocytes (Bld) [#/Vol] 0.6 10*3/uL Normal 0.0-0.8 [facility] Comment on above: Performed By: #### A NTIR, RNA POLYMR, HEP C, ANTI TH TO, HBCAB, PM-SCL ABS, U3 MUSIC INSTRUCTOR, HBSAG, HBSAB, JOSE #### [facility] , #### CRP, CK, CMP #### [address] Monocytes/100 WBC (Bld) 8.9 % Normal . [facility] Comment on above: Performed By: #### A NTIR, RNA POLYMR, HEP C, ANTI TH TO, HBCAB, PM-SCL ABS, U3 MUSIC INSTRUCTOR, HBSAG, HBSAB, JOSE #### [facility] , #### CRP, CK, CMP #### [address] Neutrophils (Bld) [#/Vol] 4.2 10*3/uL Normal 1.8-7.7 [facility] Comment on above: Performed By: #### A NTIR, RNA POLYMR, HEP C, ANTI TH TO, HBCAB, PM-SCL ABS, U3 MUSIC INSTRUCTOR, HBSAG, HBSAB, JOSE #### [facility] , #### CRP, CK, CMP #### [address] Neutrophils/100 WBC (Bld) 64.4 % Normal . [facility] Comment on above: Performed By: #### A NTIR, RNA POLYMR, HEP C, ANTI TH TO, HBCAB, PM-SCL ABS, U3 MUSIC INSTRUCTOR, HBSAG, HBSAB, JOSE #### [facility] , #### CRP, CK, CMP #### [address] Nucleated RBC/100 WBC (Bld) [Ratio] 0.1 % Normal 0-0.5 [facility] Comment on above: Performed By: #### A NTIR, RNA POLYMR, HEP C, ANTI TH TO, HBCAB, PM-SCL ABS, U3 MUSIC INSTRUCTOR, HBSAG, HBSAB, JOSE #### [facility] , #### CRP, CK, CMP #### [address] Platelet mean volume (Bld) [Entitic vol] 9.8 fL Normal 6.3-10.7 [facility] Comment on above: Performed By: #### A NTIR, RNA POLYMR, HEP C, ANTI TH TO, HBCAB, PM-SCL ABS, U3 MUSIC INSTRUCTOR, HBSAG, HBSAB, JOSE #### [facility] , #### CRP, CK, CMP #### [address] Platelets (Bld) [#/Vol] 206 10*3/uL Normal 150-450 [facility] Comment on above: Performed By: #### A NTIR, RNA POLYMR, HEP C, ANTI TH TO, HBCAB, PM-SCL ABS, U3 MUSIC INSTRUCTOR, HBSAG, HBSAB, JOSE #### [facility] , #### CRP, CK, CMP #### [address] RBC (Bld) [#/Vol] 4.33 10*6/uL Normal 3.60-5.00 [facility] Comment on above: Performed By: #### A NTIR, RNA POLYMR, HEP C, ANTI TH TO, HBCAB, PM-SCL ABS, U3 MUSIC INSTRUCTOR, HBSAG, HBSAB, JOSE #### [facility] , #### CRP, CK, CMP #### [address] WBC (Bld) [#/Vol] 6.5 10*3/uL Normal 3.8-11.6 [facility] Comment on above: Performed By: #### A NTIR, RNA POLYMR, HEP C, ANTI TH TO, HBCAB, PM-SCL ABS, U3 MUSIC INSTRUCTOR, HBSAG, HBSAB, JOSE #### [facility] , #### CRP, CK, CMP #### [address] Comprehensive Metabolic Pane lilian 08-08-2020 Albumin [Mass/Vol] 4.1 g/dL Normal 3.2-5.5 [facility] Comment on above: Performed By: #### A NTIR, RNA POLYMR, HEP C, ANTI TH TO, HBCAB, PM-SCL ABS, U3 MUSIC INSTRUCTOR, HBSAG, HBSAB, JOSE #### [facility] , #### CRP, CK, CMP #### [address] Albumin/Globulin [Mass ratio] 1.9 {ratio} Normal [facility] Comment on above: Performed By: #### A NTIR, RNA POLYMR, HEP C, ANTI TH TO, HBCAB, PM-SCL ABS, U3 MUSIC INSTRUCTOR, HBSAG, HBSAB, JOSE #### [facility] , #### CRP, CK, CMP #### [facility] [address] [place] [address] ALP [Catalytic activity/Vol] 81 U/L Normal 32-92 [facility] Comment on above: Performed By: #### A NTIR, RNA POLYMR, HEP C, ANTI TH TO, HBCAB, PM-SCL ABS, U3 MUSIC INSTRUCTOR, HBSAG, HBSAB, JOSE #### [facility] , #### CRP, CK, CMP #### [address] ALT [Catalytic activity/Vol] 35 U/L Normal 10-60 [facility] Comment on above: Performed By: #### A NTIR, RNA POLYMR, HEP C, ANTI TH TO, HBCAB, PM-SCL ABS, U3 MUSIC INSTRUCTOR, HBSAG, HBSAB, JOSE #### [facility] , #### CRP, CK, CMP #### [address] AST [Catalytic activity/Vol] 25 U/L Normal 10-42 [facility] Comment on above: Performed By: #### A NTIR, RNA POLYMR, HEP C, ANTI TH TO, HBCAB, PM-SCL ABS, U3 MUSIC INSTRUCTOR, HBSAG, HBSAB, JOSE #### [facility] , #### CRP, CK, CMP #### [address] Bilirubin [Mass/Vol] 0.4 mg/dL Normal 0.3-1.2 [facility] Comment on above: Performed By: #### A NTIR, RNA POLYMR, HEP C, ANTI TH TO, HBCAB, PM-SCL ABS, U3 MUSIC INSTRUCTOR, HBSAG, HBSAB, JOSE #### [facility] , #### CRP, CK, CMP #### [address] Calcium [Mass/Vol] 9.2 mg/dL Normal 8.2-10.2 [facility] Comment on above: Performed By: #### A NTIR, RNA POLYMR, HEP C, ANTI TH TO, HBCAB, PM-SCL ABS, U3 MUSIC INSTRUCTOR, HBSAG, HBSAB, JOSE #### [facility] , #### CRP, CK, CMP #### [address] Chloride [Moles/Vol] 106 mmol/L Normal 95-114 [facility] Comment on above: Performed By: #### A NTIR, RNA POLYMR, HEP C, ANTI TH TO, HBCAB, PM-SCL ABS, U3 MUSIC INSTRUCTOR, HBSAG, HBSAB, JOSE #### [facility] , #### CRP, CK, CMP #### [address] CO2 [Moles/Vol] 28.1 mmol/L Normal 22.0-30.0 [facility] Comment on above: Performed By: #### A NTIR, RNA POLYMR, HEP C, ANTI TH TO, HBCAB, PM-SCL ABS, U3 MUSIC INSTRUCTOR, HBSAG, HBSAB, JOSE #### [facility] , #### CRP, CK, CMP #### [address] Creatinine [Mass/Vol] 0.64 mg/dL Normal 0.44-1.03 [facility] Comment on above: Performed By: #### A NTIR, RNA POLYMR, HEP C, ANTI TH TO, HBCAB, PM-SCL ABS, U3 MUSIC INSTRUCTOR, HBSAG, HBSAB, JOSE #### [facility] , #### CRP, CK, CMP #### [address] Estimated GFR ( Tari > [address] [facility] Comment on above: Result Comment: GFR estimated reference range: According to KDOQI guidelines, <60 ml/min/1.73m2 is sufficient to diagnose a patient with chronic kidney disease. Performed By: #### A NTIR, RNA POLYMR, HEP C, ANTI TH TO, HBCAB, PM-SCL ABS, U3 MUSIC INSTRUCTOR, HBSAG, HBSAB, JOSE #### [facility] , #### CRP, CK, CMP #### [address] Estimated GFR (Non- Am > [address] [facility] Comment on above: Performed By: #### A NTIR, RNA POLYMR, HEP C, ANTI TH TO, HBCAB, PM-SCL ABS, U3 MUSIC INSTRUCTOR, HBSAG, HBSAB, JOSE #### [facility] , #### CRP, CK, CMP #### [address] Globulin (S) [Mass/Vol] 2.2 g/dL Normal [facility] Comment on above: Performed By: #### A NTIR, RNA POLYMR, HEP C, ANTI TH TO, HBCAB, PM-SCL ABS, U3 MUSIC INSTRUCTOR, HBSAG, HBSAB, JOSE #### [facility] , #### CRP, CK, CMP #### [address] Glucose [Mass/Vol] 87 mg/dL Normal 70-100 [facility] Comment on above: Result Comment: [facility] Glucose Reference Range is dependent on time and content of last meal. Glucose of more than 200 mg/dL in a nonstressed, ambulatory subject supports the diagnosis of Diabetes Mellitus. ADA recommended reference range Performed By: #### A NTIR, RNA POLYMR, HEP C, ANTI TH TO, HBCAB, PM-SCL ABS, U3 MUSIC INSTRUCTOR, HBSAG, HBSAB, JOSE #### [facility] , #### CRP, CK, CMP #### [address] Potassium [Moles/Vol] 4.5 mmol/L Normal 3.5-5.1 [facility] Comment on above: Performed By: #### A NTIR, RNA POLYMR, HEP C, ANTI TH TO, HBCAB, PM-SCL ABS, U3 MUSIC INSTRUCTOR, HBSAG, HBSAB, JOSE #### [facility] , #### CRP, CK, CMP #### [address] Protein [Mass/Vol] 6.3 g/dL Normal 6.1-7.9 [facility] Comment on above: Performed By: #### A NTIR, RNA POLYMR, HEP C, ANTI TH TO, HBCAB, PM-SCL ABS, U3 MUSIC INSTRUCTOR, HBSAG, HBSAB, JOSE #### [facility] , #### CRP, CK, CMP #### [address] Sodium [Moles/Vol] 143 mmol/L Normal 136-146 [facility] Comment on above: Performed By: #### A NTIR, RNA POLYMR, HEP C, ANTI TH TO, HBCAB, PM-SCL ABS, U3 MUSIC INSTRUCTOR, HBSAG, HBSAB, JOSE #### [facility] , #### CRP, CK, CMP #### [address] Urea nitrogen [Mass/Vol] 11 mg/dL Normal 9-23 [facility] Comment on above: Performed By: #### A NTIR, RNA POLYMR, HEP C, ANTI TH TO, HBCAB, PM-SCL ABS, U3 MUSIC INSTRUCTOR, HBSAG, HBSAB, JOSE #### [facility] , #### CRP, CK, CMP #### [address] Creatine Kinaseon 08-08-2020 CK [Catalytic activity/Vol] 39 U/L Normal 22-269 [facility] Comment on above: Result Comment: PERF ORMED BY: [place] [address] PATHOLOGIST RACEHORSE TRAINER BEAU JOHNSON M.D. Performed By: #### A NTIR, RNA POLYMR, HEP C, ANTI TH TO, HBCAB, PM-SCL ABS, U3 MUSIC INSTRUCTOR, HBSAG, HBSAB, JOSE #### [facility] , #### CRP, CK, CMP #### [address] Erythrocyte Sedimentation Ra byron 08-08-2020 ESR (Bld) [Velocity] 4 mm/h Normal 0-29 [facility] Comment on above: Result Comment: PERF ORMED BY: [place] [address] PATHOLOGIST RACEHORSE TRAINER BEAU JOHNSON M.D. Performed By: #### A NTIR, RNA POLYMR, HEP C, ANTI TH TO, HBCAB, PM-SCL ABS, U3 MUSIC INSTRUCTOR, HBSAG, HBSAB, JOSE #### [facility] , #### CRP, CK, CMP #### [address] Hep C Ab w Verificationon HCV AB <0.1 Normal 0.0-0.9 [facility] Comment on above: Order Comment: Speci men Comment: Test(s) 695728-Vrro-H2 MUSIC INSTRUCTOR (Fibrillarin)(RDL) Specimen Comment: was developed and its performance characteristics Specimen Comment: determined by [facility]. It has not been cleared or approved Specimen Comment: by the Food and Drug Administration. Specimen Comment: Test(s) 641966-Ahaz-[place]/Scl-75 Ab (RDL) Specimen Comment: was developed and its performance characteristics Specimen Comment: determined by [facility]. It has not been cleared or approved Specimen Comment: by the Food and Drug Administration. Performed By: #### A NTIR, RNA POLYMR, HEP C, ANTI TH TO, HBCAB, PM-SCL ABS, U3 MUSIC INSTRUCTOR, HBSAG, HBSAB, JOSE #### [facility] , #### CRP, CK, CMP #### [address] HCV Ab Comment Normal . [facility] Comment on above: Order Comment: Speci men Comment: Test(s) 514897-Cmrs-J0 MUSIC INSTRUCTOR (Fibrillarin)(RDL) Specimen Comment: was developed and its performance characteristics Specimen Comment: determined by [facility]. It has not been cleared or approved Specimen Comment: by the Food and Drug Administration. Specimen Comment: Test(s) 373039-Ygmu-OT/Scl-75 Ab (RDL) Specimen Comment: was developed and [...] ANTI TH TO, HBCAB, PM-SCL ABS, U3 MUSIC INSTRUCTOR, HBSAG, HBSAB, JOSE #### [facility] , #### CRP, CK, CMP #### [facility] [address] [place] [address] Hepatitis B Core Antibodyon 08-08-2020 Hepatitis B Core Antibody Negative Normal Negative [facility] Comment on above: Order Comment: Speci men Comment: Test(s) 369581-Fuir-C1 MUSIC INSTRUCTOR (Fibrillarin)(RDL) Specimen Comment: was developed and its performance characteristics Specimen Comment: determined by [facility]. It has not been cleared or approved Specimen Comment: by the Food and Drug Administration. Specimen Comment: Test(s) 345623-Idfr-EX/Scl-75 Ab (RDL) Specimen Comment: was developed and its performance characteristics Specimen Comment: determined by [facility]. It has not been cleared or approved Specimen Comment: by the Food and Drug Administration. Result Comment: Perf ormed at: [address] [id number] Vending Service Technician: David Pace PhD, Phone: [phone] Performed By: #### A NTIR, RNA POLYMR, HEP C, ANTI TH TO, HBCAB, PM-SCL ABS, U3 MUSIC INSTRUCTOR, HBSAG, HBSAB, JOSE #### [facility] , #### CRP, CK, CMP #### [place] [id number] [place] Hepatitis B Surface Antibody on 08-08-2020 Hepatitis B Surface Antibody Non Reactive Normal . [facility] Comment on above: Order Comment: Speci men Comment: Test(s) 404444-Akdz-P9 MUSIC INSTRUCTOR (Fibrillarin)(RDL) Specimen Comment: was developed and its performance characteristics Specimen Comment: determined by [facility]. It has not been cleared or approved Specimen Comment: by the Food and Drug Administration. Specimen Comment: Test(s) 764914-Dudc-FI/Scl-75 Ab (RDL) Specimen Comment: was developed and [...] ANTI TH TO, HBCAB, PM-SCL ABS, U3 MUSIC INSTRUCTOR, HBSAG, HBSAB, JOSE #### [facility] , #### CRP, CK, CMP #### [facility] [address] [place] [address] Hepatitis B Surface Antigeno n 08-08-2020 HBsAg Screen Negative Normal Negative [facility] Comment on above: Order Comment: Speci men Comment: Test(s) 806388-Sbaa-L0 MUSIC INSTRUCTOR (Fibrillarin)(RDL) Specimen Comment: was developed and its performance characteristics Specimen Comment: determined by [facility]. It has not been cleared or approved Specimen Comment: by the Food and Drug Administration. Specimen Comment: Test(s) 564270-Lqxw-LM/Scl-75 Ab (RDL) Specimen Comment: was developed and its performance characteristics Specimen Comment: determined by [facility]. It has not been cleared or approved Specimen Comment: by the Food and Drug Administration. Performed By: #### A NTIR, RNA POLYMR, HEP C, ANTI TH TO, HBCAB, PM-SCL ABS, U3 MUSIC INSTRUCTOR, HBSAG, HBSAB, JOSE #### [facility] , #### CRP, CK, CMP #### [facility] [address] [place] [address] [place] PM-SCL Antibodieson 08-08-19 21 JOHN PM-Scl Antibody <20 Normal <20 [facility] Comment on above: Order Comment: Speci men Comment: Test(s) 859028-Xgxm-F0 MUSIC INSTRUCTOR (Fibrillarin)(RDL) Specimen Comment: was developed and its performance characteristics Specimen Comment: determined by [facility]. It has not been cleared or approved Specimen Comment: by the Food and Drug Administration. Specimen Comment: Test(s) 275336-Ipwe-KQ/Scl-75 Ab (RDL) Specimen Comment: was developed and its performance characteristics Specimen Comment: determined by [facility]. It has not been cleared or approved Specimen Comment: by the Food and Drug Administration. Result Comment: Nega tive: <20 Weak Positive: 20 - 39 Moderate Positive: 40 - 80 Strong Positive: >80 Performed at: [employer] [address] [place] [id number] Vending Service Technician: Shay Mcnair MD, Phone: [phone] Performed By: #### A NTIR, RNA POLYMR, HEP C, ANTI TH TO, HBCAB, PM-SCL ABS, U3 MUSIC INSTRUCTOR, HBSAG, HBSAB, JOSE #### [facility] , #### CRP, CK, CMP #### [facility] [address] [place] [address] RNA Polymerase IIion 021 RNA Polymerase IIi <20 Normal <20 [facility] Comment on above: Order Comment: Speci men Comment: Test(s) [id number]-Vgjs-Qd/To Ab (RDL) Specimen Comment: was developed and its performance characteristics Specimen Comment: determined by [facility]. It has not been cleared or approved Specimen Comment: by the Food and Drug Administration. Result Comment: Nega tive: <20 Weak Positive: 20 - 39 Moderate Positive: 40 - 80 Strong Positive: >80 Performed at: [employer] [address] [place] [id number] Vending Service Technician: Shay Mcnair MD, Phone: [phone] PERFORMED BY: [place] [address] PATHOLOGIST RACEHORSE TRAINER BEAU JOHNSON M.D. Performed By: #### A NTIR, RNA POLYMR, HEP C, ANTI TH TO, HBCAB, PM-SCL ABS, U3 MUSIC INSTRUCTOR, HBSAG, HBSAB, JOSE #### [facility] , #### CRP, CK, CMP #### [facility] [address] [place] [address] [place] Th/To Antibodyon 08-08-2020 Th/To Antibody Negative Normal Negative [facility] Comment on above: Order Comment: Speci men Comment: Test(s) 742164-Eyqf-Jb/To Ab (RDL) Specimen Comment: was developed and its performance characteristics Specimen Comment: determined by [facility]. It has not been cleared or approved Specimen Comment: by the Food and Drug Administration. Result Comment: Perf ormed at: [employer] [address] [place], [place] [id number] Vending Service Technician: Shay Mcnair MD, Phone: [phone] Performed By: #### A NTIR, RNA POLYMR, HEP C, ANTI TH TO, HBCAB, PM-SCL ABS, U3 MUSIC INSTRUCTOR, HBSAG, HBSAB, JOSE #### [facility] , #### CRP, CK, CMP #### [address] U3 Rnpon 08-08-2020 U3 Ad Copy Writer Negative Normal Negative [facility] Comment on above: Order Comment: Speci men Comment: Test(s) 083958-Tfzw-G3 MUSIC INSTRUCTOR (Fibrillarin)(RDL) Specimen Comment: was developed and its performance characteristics Specimen Comment: determined by [facility]. It has not been cleared or approved Specimen Comment: by the Food and Drug Administration. Specimen Comment: Test(s) [id number]-Ffhj-IO/Scl-75 Ab (RDL) Specimen Comment: was developed and its performance characteristics Specimen Comment: determined by [facility]. It has not been cleared or approved Specimen Comment: by the Food and Drug Administration. Result Comment: Perf ormed at: [employer] [address] [place], [place] [id number] Vending Service Technician: Shay cMnair MD, Phone: [phone] PERFORMED BY: [place] [address] PATHOLOGIST RACEHORSE TRAINER BAEU JOHNSON M.D. Performed By: #### A NTIR, RNA POLYMR, HEP C, ANTI TH TO, HBCAB, PM-SCL ABS, U3 MUSIC INSTRUCTOR, HBSAG, HBSAB, JOSE #### [facility] , #### CRP, CK, CMP #### [facility] [address] T4on 08-02-2020 T4, Total 9.9 ug/dL 4.5 - 10.9 ug/dL [place], [place] TSH without Reflexon 021 Interpretation and review of laboratory results Abnormal [place], [place] TSH Qn 5.63 m[IU]/L [place] Vital Signs Date Time Vital Sign Value Performing Clinician Faci lity 01-10-2023 19:11-0400 SaO2% (BldA) [Mass fraction] 92 % Bulmaro Padron MD Work Phone: [facility] 01-10-2023 18:46-0400 Diastolic blood pressure 75 mm[Hg] Bulmaro Padron MD Work Phone: [facility] 01-10-2023 18:46-0400 Systolic blood pressure 166 mm[Hg] Bulmaro Padron MD Work Phone: [facility] 01-10-2023 17:33-0400 Body temperature 97.9 [degF] Bulmaro Padron MD Work Phone: [facility] 01-10-2023 17:33-0400 Heart rate 71 /min Bulmaro Padron MD Work Phone: [facility] 01-10-2023 17:33-0400 Respiratory rate 16 /min Bulmaro Padron MD Work Phone: [facility] Encounters Encounter Date Encounter Type Care Provider Facility Start: 03-23-2024 End: 03-23-2024 ambulatory Akira Vargas MD Facility:[facility] Start: 03-02-2024 End: 03-02-2024 ambulatory Akira Vargas MD Facility:[facility] Start: 05-28-2023 End: 05-29-2023 ambulatory Aayush MENDOZA Facility: [facility] Start: 05-27-2023 ambulatory Aayush MENDOZA Facility:[facility] Start: 04-29-2023 ambulatory Aayush MENDOZA Facility:[facility] Start: 04-02-2023 End: 04-03-2023 ambulatory ARMIDA AGEE [facility] Start: 02-01-2023 End: 02-01-2023 Subsequent hospital visit by physician Bulmaro Padron MD Work Phone: [facility] Laboratory Comment on above: Nocturia; Frequency of urination; Urge incontinence Start: 02-01-2023 End: 02-04-2023 ambulatory GABBIE WHITE [facility] Start: 01-10-2023 Emergency department patient visit BULMARO M [facility] Start: 01-10-2023 End: 01-10-2023 Emergency department patient visit Bulmaro Padron MD Work Phone: [facility] ED Comment on above: Right ureteral stone (Primary Dx) Start: 10-09-2022 Emergency department patient visit JORDYN EATON [facility] Start: 06-19-2022 End: 06-20-[address] [...] Subsequent [facility] Procedures Date Procedure Procedure Detail Performing Clinician Start: 02-01-2023 Culture bacterial quanttative colony count urine Gabbie White MANAGER TRANSPORTATION PLANNING - THERAPEUTIC ACTIVITIES SERVICES WORKER Work Phone: Start: 01-10-2023 Ct abdomen & pelvis w/o contrast material Cari Bedmichelekop MANAGER TRANSPORTATION PLANNING - THERAPEUTIC ACTIVITIES SERVICES WORKER Work Phone: Start: 01-10-2023 Comprehensive metabo lic panel Cari Bedenkop MANAGER TRANSPORTATION PLANNING - THERAPEUTIC ACTIVITIES SERVICES WORKER Work Phone: Start: 01-10-2023 Urinalysis microscopic only Unknown Provider Result Start: 01-10-2023 Urnls dip stick/tabl et rgnt auto w/o microscopy Cari Britton MANAGER TRANSPORTATION PLANNING - THERAPEUTIC ACTIVITIES SERVICES WORKER Work Phone: Start: 08-02-2020 Assay of thyroid stimulating hormone tsh Bulmaro Padron Work Phone: Start: 08-02-2020 Assay of thyroxine total Bulmaro Padron Work Phone: Plan of Treatment Date Care Activity Detail Author Start: 01-27-2028 DTaP/Tdap/Td vaccine (2 - Td or Tdap) DTaP/Tdap/Td vaccine (2 - Td or Tdap) [facility] Start: 01-27-2028 DTaP/Tdap/Td vaccine (2 - Td) DTaP/Tdap/Td vaccine (2 - Td) [place] Start: 02-12-2023 Influenza vaccination [facility] Start: 03-15-2020 Influenza vaccination Flu vaccine (# 1) [place] Start: 01-04-2019 Annual Wellness Visi t (AWV) Annual Wellness Visit (AWV) [facility] Start: 2012 Screening for malign ant neoplasm of breast Breast cancer screen [facility] [employer] Start: 2012 Screening for malign ant neoplasm of colon Colon cancer screen colonoscopy [place], [place] Start: 2012 Shingles Vaccine (1 of 2) Shingles Vaccine (1 of 2) [facility] [facility] [employer] Start: 12-15-2007 Screening for malign ant neoplasm of colon [facility] [facility] [employer] Start: 2002 Lipid panel [facility] Start: 1997 Diabetes screen Diabetes screen [facility] [facility] [employer] Start: 1992 Screening for malign ant neoplasm of cervix [facility] [facility] [employer] Start: 12-15-1983 Screening for malign ant neoplasm of cervix [facility] [employer] Start: 1980 Hepatitis C screening Hepatitis C sc reen [facility] [employer] Start: 1977 HIV screening HIV screen [facility] Start: 1974 Depression Screen Depression Screen [facility] Start: 06-15-1963 COVID-19 Vaccine (#1) COVID-19 Vacci ne (#1) [facility] Start: 1962 Hepatitis C screening Hepatitis C sc sonny [place], [place] End: 08-02-2020 Free T3 [Mass/Vol] T3, Free Lab Routine Once for 1 Occurrences starting 08/02/2020 until 08/02/2020 [place] Comment on above: Once for 1 Occurrenc es starting 08/02/2020 until 08/02/2020 Free T3 [Mass/Vol] T3, Free Lab Routine 08/02/2020 10:13 AM EST [place] Immunizations Immunization Date Immunization Notes Care Provider Gt doyle 01-26-2018 tetanus toxoid, redu clare diphtheria toxoid, and acellular pertussis vaccine, adsorbed Bulmaro Hoy [facility] Payers Date Payer Category Payer Private Health Insurance 2018 Medicare [id number] 2017 Unknown [id number] 1962 Unknown [id number] 2.16.84 [id number] 1962 Unknown [id number] 2.16.84 [id number] 1962 Unknown [id number] 2.16.84 [id number] 1962 Unknown [id number] 2.16.84 [id number] 1962 Unknown [id number] 2.16.84 [id number] 1962 Unknown [id number] 2.16.84 [id number] 1962 Unknown [id number] 2.16.8 [id number] 1962 Unknown [id number] 2.16.8 [id number] 1962 Unknown [id number] 2.16.8 [id number] 1962 Unknown [id number] 2.16.8 [id number] 1962 Unknown [id number] 2.16.8 [id number] 1962 Unknown [id number] 2.16. [id number] 1962 Unknown [id number] 2.16. [id number] Social History Date Type Detail Facility Start: 07-01-2018 End: 01-11-2023 Tobacco smoking status NHIS Former smoker [place], [place] Start: 07-01-2018 End: 01-11-2023 Tobacco use and exposure Never used [place] Start: 07-01-2018 End: 02-01-2023 Alcohol intake Current non-drinker of alcohol (finding) [place], [place] Start: 1960 Sex Assigned At Not on file [place], [place] History of tobacco use Current smoker [facility] Start: 10-09-2022 History SDOH Alcohol Frequency 1 [facility] Start: 10-09-2022 History SDOH Alcohol Std Drinks 0 [facility] Clinical Note 05-28-2023 Note Date [...] 05/28/20 (more content not included)... [facility] Comment on above: Result Comment: [...] cannot be sent through Care Everywhere.Kidney Stone (Liberian)documented in this encounter [facility] Evaluation note Note Date & Type Note Facility Evaluation note Diagnosis Right ureteral stone- Primary Calculus of ureter documented in this encounter [facility] Evaluation note Note Date & Type Note Facility Evaluation note Diagnosis Nocturia Frequency of urination Urinary frequency Urge incontinence documented in this encounter [facility] Advance Directives No Advanced Directives Records FoundDocuments on File Type Date Recorded 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 ACP-Advance Directive ACP-Power of Credit Processor Summary Purpose Family History No Family History Records FoundNo Family History Records FoundNo Family History Records FoundNo Family History Records FoundNo Family History Records Found Additional Source Comments INFORMATION SOURCE (unrecogn ized section and content) DATE CREATED AUTHOR 08/17/2020 [facility] DATE CREATED AUTHOR AUTHOR'S ORGANIZ ATION 06/23/2022 [facility] DATE CREATED AUTHOR AUTHOR'S ORGANIZ ATION [facility]2023 [facility] DATE CREATED AUTHOR AUTHOR'S ORGANIZ ATION 05/29/2023 [facility] DATE CREATED AUTHOR AUTHOR'S ORGANIZ ATION 04/02/2024 [facility] Reason for Visit (unrecogniz ed section [...] Care Teams (unrecognized sec tion and content) [employer]ds [employer] 1 Operator Relationship Specialty Start [place] [address] [place] [address] PCP - General Family Medicine 01/26/18 [employer] 1 Operator Relationship Specialty Start Date End Date Bulmaro Padron MD [address] [place] [id number] PCP - General Family Medicine 01/26/18 FOR [...] BE BASED ON THE PRIMARY CLINICAL RECORDS. [facility] [employer] [facility]. provides no warranty or guarantee of the accuracy or completeness of information in this document.
--- NOTE | 2024-04-08 10:58 | P.CN_ITS ---
Consult Note: HPI Data of Consult Patient: known to practice within the last 3 years Consult date: 03/02/24 Requesting Physician: Liz Perales NP Primary Care Provider: Sebastien Padron MD Consult Narrative Reason for consult: low back pain Narrative: 63yof who presents for evaluation. longstanding low back pain history >20 years, now worsening. worse with standing and ambulation. imaging reviewed, which shows facet arthropathy throughout lower lumbar spine. has engaged in physical therapy and continues in >6 weeks of provider directed home exercise program, without lasting benefit. has tried various pain meds, without significant benefit. tried muscle relaxers without benefit. denies adverse med side effects. recently underwent bilateral L4-5 L5-S1 MBB #1 with >80% improvement in pain and functional ability immediately following and at least two hours after the procedure, pain 1/10, however with MBB#2 she had minimal relief, pain 5/10 prior and 3-4/10 after for 1 hour before returning to baseline. patient noticing increased middle back pain. cc:: CC: Liz Preales NP Review of Systems ROS Status of ROS 10 or more systems reviewed and unremark able except as noted in history and below Musculoskeletal Reports: back pain PFSH PFSH Medical History (Updated 04/08/24 @ 11:00 by Liz Perales NP) H/O complications due to general anesthesia ?Z91.89 - Other specified personal risk factors, not elsewhere classified (ICD-10) Anemia ?D64.9 - Anemia, unspecified (ICD-10) Heartburn ?R12 - Heartburn (ICD-10) Obesity ?E66.9 - Obesity, unspecified (ICD-10) Hypothyroid ?E03.9 - Hypothyroidism, unspecified (ICD-10) Asthma ?J45.909 - Unspecified asthma, uncomplicated (ICD-10) Surgical History H/O abdominal surgery ?Z98.890 - Other specified postprocedural states (ICD-10) S/P hernia repair ?Z98.890 - Other specified postprocedural states (ICD-10) ?Z87.19 - Personal history of other diseases of the digestive system (ICD-10) Meds Home Medications and Allergies Home Medications ?Medication ?Instructions ?Recorded ?Confirmed ?Type albuterol sulfate 90 mcg/actuation 2 inh inhalation Q6H PRN shortness 03/02/24 04/06/24 History breath activated powder inhaler of breath or wheezing aspirin 81 mg capsule 81 mg PO DAILY 03/02/24 04/06/24 History cholecalciferol (vitamin D3) 50 50 mcg PO DAILY 03/02/24 04/06/24 History mcg (2,000 unit) capsule hydroxychloroquine 200 mg tablet 200 mg PO DAILY 03/02/24 04/06/24 History levothyroxine 150 mcg capsule 150 mcg PO DAILY 03/02/24 04/06/24 History liothyronine 5 mcg tablet 15 mcg PO DAILY 03/02/24 04/06/24 History Allergies Allergy/AdvReac Type Severity Reaction Status Date / Time bee pollen AdvReac Mild itching Verified 04/06/24 07:16 Exam Constitutional Documenting provider has reviewed patient's vital signs: yes Common normals: no apparent distress, oriented x3, healthy appearing, alert and well nourished General appearance: cooperative HENMT Common normals: normocephalic, hearing grossly normal bilaterally and moist oral mucous membranes Head and scalp: normocephalic Eye Common normals: PERRL Pupil: PERRL Neck & C-Spine Common normals: full ROM General: normal visual inspection Chest Common normals: inspection of chest normal Respiratory Common normals: normal respiratory effort, no retractions and no use of accessory muscles Back & Pelvis Thoracic spine/upper back: pain with ROM, thoracic spinal tenderness and paraspinal muscle tenderness Lumbar spine/lower back: pain with ROM, lumbar spinal tenderness, paraspinal muscle tenderness and straight leg raise positive right Sacroiliac joints: SI joint(s) abnormal Other: sensation intact BLE, strength 5/5 in BLE significant myofascial pain and spasming Extremity Common normals: normal to inspection and full ROM Neuro Common normals: oriented x3, CN's II-XII intact bilaterally, moves all extremities, no focal motor deficits, no sensory deficits noted, deep tendon reflexes 2+ bilaterally and gait normal Sensorium/orientation: alert Motor exam: strength 5/5 throughout and no movement abnormalities noted Psych Common normals: mental status grossly normal, thought process normal, cooperative, affect normal, speech normal and activity/motor behavior normal Speech: normal speech Thought process: normal thought process Results Additional Findings Additional findings: If on a controlled substance or opioids, I have checked an [place] report on this patient and there are no aberrancies noted in the prescribing history.??If on a controlled substance or opioid a drug screen was completed and reviewed within the last year, and if there has not been a drug screen completed we ordered one today to monitor higher risk, state monitored pain medication use. As part of providing excellent, safe, comprehensive care, the following was completed at our patient's visit: 1. A medication reconciliation and review to ensure accurate knowledge of current/active medications, including asking our patients to inform us about any [id number] medications or herbal remedies/nutritional supplements/alternative remedies. 2. A review to specifically ensure our patients have had annual screening for screening for depression, screening for tobacco use, and screening for unhealthy alcohol use. For concerning screenings had a discussion with the patient, provided patient education, and recommended follow-up with primary care provider when appropriate. If patient noted with a risk of falling, they received education on strength, gait, and balance training to prevent future risk of falling. Assessment and Plan Assessment and Plan (1) Lumbar spondylosis: (2) Lumbar stenosis with neurogenic claudication: (3) Thoracic spondylosis: (4) Myofascial pain: Plan start baclofen 5-10mg TID PRN pain/spasms, risks vs benefits and potential side effects reviewed update thoracic xray f/u 2 weeks
== END 2024-04-08 10:26 | disposition home or self-care (01) ==
LOC: PM 10:25
PROVIDERS: PCP Family Medicine; Visit Provider Nurse Practitioner
DX: M47.816 Spondylosis without myelopathy or radiculopathy, lumbar region (principal); M48.062 Spinal stenosis, lumbar region with neurogenic claudication; M47.814 Spondylosis without myelopathy or radiculopathy, thoracic region; M51.34 Other intervertebral disc degeneration, thoracic region; M79.18 Myalgia, other site
CPT/HCPCS: 72070; G0463

== ENCOUNTER 2024-04-08 11:24 | Outpatient (OUT) | payer MEDICARE, SELFPAY ==
--- OUTSIDE RECORDS SUMMARY | 2024-04-08 11:39 | XMS_ITS | CCD ---
Author Organization [facility] CliniSypr Care Team Providers Care Leadlighter Name Role Phone Bulmaro Padron Primary Care [...] Unavailable CLARA, DR CHAMBERLAIN Primary Care Unavailable CALRA, DR CHAMBERLAIN Consulting Unavailable Bulmaro Padron MD [...] [Bee Stings] Propensity to adverse reactions (disorder) [facility] Repository (1 source) No Known Medication Allergies; Translations: [No Known Medication Allergies] Propensity to adverse reactions (disorder) [facility] Repository Medications Current Medications Medication Drug Class(es) [...] for choosing us for your care. Normal [facility] RAD - CT Reporton 05-23-2023 RAD - CT Report [id number] Normal [facility] Patient Letter FTMCon 2022 Patient Letter [facility] May 16, 2023 YAS KURTZ [address] [place] [address] : 1960 Dear Ms. Kurtz, Thank you for choosing [facility] for your healthcare needs. Your consultation appointment with Dr Aayush Mendoza is scheduled for 05/28/23 at 10am. We are located in the [place] [address] building, 2nd floor, [address]. A map is enclosed. Please bring your insurance card, a photo ID, and any co-pay you are responsible for to this first appointment. If you have any questions, please call us at [phone]. We look forward to seeing you soon. Sincerely, [place] [address], [address] [place] [address]. [place] [address] [facility] Consultation Noteon 05-01-20 23 Consultation Note [id number] Normal [facility] Physician Referralon 023 Physician Referral [id number] Normal [facility] Cult,Urineon 04-03-2023 Cult,Urine Specimen Description .CLEAN CATCH URINE Culture NO SIGNIFICANT GROWTH Report Status FINAL 04/03/2023 Normal [facility] Comment on above: Performed By: #### B C #### [facility] [address] [place] [address] Dr[address] [place], [place] [id number] Camera Mechanic: Stu Baires MD Trichomonas/Wet Prepon 04-02 Trichomonas/Wet Prep Specimen Description .VAGINA Direct Exam NO YEAST OBSERVED NO TRICHOMONAS SEEN NO CLUE CELLS SEEN Report Status FINAL 04/02/2023 Normal [facility] Comment on above: Performed By: #### W P #### [facility] [address] [place] [address] Camera Mechanic: Stu Baires MD Cult,Urineon 02-03-2023 Cult,Urine Specimen Description .CLEAN CATCH URINE Culture NO SIGNIFICANT GROWTH Report Status FINAL 02/02/[address] [facility] Comment on above: Performed By: #### U RC #### [facility] [address] [place] [address] Camera Mechanic: Victor Manuel Be MD [facility] [address] [place] [address] Camera Mechanic: Stu Baires MD Culture, Urineon 02-02-2023 Microorganism identified Cx Nom (Unsp spec) NO SIGNIFICANT GROWTH [facility] Specimen Description .CLEAN CATCH URINE [facility] CT ABDOMEN PELVIS [...] Ar Graves MD 02/01/23 Final result Normal [facility] CBC with Auto Differentialon 01-10-2023 Basophils (Bld) [#/Vol] 0.03 10*3/uL [facility] Basophils/100 WBC (Bld) 0 % 0 - 2 % [facility] Eosinophils (Bld) [#/Vol] 0.03 10*3/uL [facility] Eosinophils/100 WBC (Bld) 0 % Low 1 - 4 % [facility] Erythrocyte distribution width (RBC) [Ratio] 12.6 % 11.8 - 14.4 % [facility] Hematocrit (Bld) [Volume fraction] 43.5 % 36.3 - 47.1 % [facility] Hemoglobin (Bld) [Mass/Vol] 14.4 g/dL 11.9 - 15.1 g/dL [facility] Immature granulocytes (Bld) [#/Vol] [facility] Immature granulocytes/100 WBC (Bld) 0 % [address] [facility] Interpretation and review of laboratory results Abnormal [facility] Lymphocytes/100 WBC (Bld) 11 % Low 24 - 43 % [facility] Lymphocytes/100 WBC (Bld) 0.90 % Low [facility] MCH (RBC) [Entitic mass] 31.5 pg 25.2 - 33.[address] [facility] MCHC (RBC) [Mass/Vol] 33.1 g/dL 28.4 - 34.8 g/dL [facility] MCV (RBC) [Entitic vol] 95.2 fL 82.6 - 102.[address] [facility] Monocytes/100 WBC (Bld) 5 % 3 - 12 % [facility] Monocytes/100 WBC (Bld) 0.44 % [facility] Neutrophils/100 WBC (Bld) 84 % High 36 - 65 % [facility] Nucleated RBC/100 WBC (Bld) [Ratio] 0.0 % 0.0 per [address] [facility] Platelet mean volume (Bld) [Entitic vol] 10.8 fL 8.1 - 13.[address] [facility] Platelets (Bld) [#/Vol] 210 10*3/uL [facility] RBC (Bld) [#/Vol] 4.57 10*6/uL 3.95 - 5.1 1 m/uL [facility] Segmented neutrophils/100 WBC (Bld) 7.13 % [facility] WBC other (Bld) [#/Vol] 8.6 [facility] CBC with Diffon 01-10-2023 Abs. Basophil 0.03 k/uL Normal 0.00-0.20 [facility] Comment on above: Performed By: #### C DP, CP #### [facility] [address] [place] [address] [place] [address] Camera Mechanic: Stu Baires MD Abs.Imm.Granulocyte <0.03 Normal 0.00-0.30 [facility] Comment on above: Performed By: #### C DP, CP #### [address] [place] [place] [address] Camera Mechanic: Stu Baires MD Abs.Neutrophil (Seg) 7.13 k/uL Normal 1.50-8.10 [facility] Comment on above: Performed By: #### C DP, CP #### [address] [place], [place] [id number] Camera Mechanic: Stu Baires MD Basophils/100 WBC (Bld) 0 % Normal 0-2 [facility] Comment on above: Performed By: #### C DP, CP #### [address] [place], [place] [id number] Camera Mechanic: Stu Baires MD Eosinophils (Bld) [#/Vol] 0.03 10*3/uL Normal 0.00-0.44 [facility] Comment on above: Performed By: #### C DP, CP #### [address] [place], [place] [id number] Camera Mechanic: Stu Baires MD Eosinophils/100 WBC (Bld) 0 % Low 1-4 [facility] Comment on above: Performed By: #### C DP, CP #### [facility] [address] [place], [place] [id number] Camera Mechanic: Sut Baires MD Erythrocyte distribution width (RBC) [Ratio] 12.6 % Normal 11.8-14.4 [facility] Comment on above: Performed By: #### C DP, CP #### [facility] [address] [place], [facility]83 Camera Mechanic: Stu Baires MD Hematocrit (Bld) [Volume fraction] 43.5 % Normal 36.3-47.1 [facility] Comment on above: Performed By: #### C DP, CP #### [address] [place], [facility]83 Camera Mechanic: Stu Baires MD Hemoglobin (Bld) [Mass/Vol] 14.4 g/dL Normal 11.9-15.1 [facility] Comment on above: Performed By: #### C DP, CP #### [address] [place], [place] [id number] Camera Mechanic: Stu Baires MD Immature granulocytes/100 WBC (Bld) 0 % Normal 0 [facility] Comment on above: Performed By: #### C DP, CP #### [address] [place], [place] [address] Camera Mechanic: Stu Baires MD Lymphocytes (Bld) [#/Vol] 0.90 10*3/uL Low 1.10-3.70 [facility] Comment on above: Performed By: #### C DP, CP #### [facility] [address] [place] [address] Camera Mechanic: Stu Baires MD Lymphocytes/100 WBC (Bld) 11 % Low 24-43 [facility] Comment on above: Performed By: #### C DP, CP #### [facility] [address] [place] [address] Dr[place], [place] [id number] Camera Mechanic: Stu Baires MD MCH (RBC) [Entitic mass] 31.5 pg Normal 25.2-33.5 [facility] Comment on above: Performed By: #### C DP, CP #### [address] [place], [place] [id number] Camera Mechanic: Stu Baires MD MCHC (RBC) [Mass/Vol] 33.1 g/dL Normal 28.4-34.8 [facility] Comment on above: Performed By: #### C DP, CP #### [address] [place], [facility]83 Camera Mechanic: Stu Baires MD MCV (RBC) [Entitic vol] 95.2 fL Normal 82.6-102.9 [facility] Comment on above: Performed By: #### C DP, CP #### [address] [place], [facility]83 Camera Mechanic: Stu Baires MD Monocytes (Bld) [#/Vol] 0.44 10*3/uL Normal 0.10-1.20 [facility] Comment on above: Performed By: #### C DP, CP #### [address] [place], [place] [id number] Camera Mechanic: Stu Baires MD Monocytes/100 WBC (Bld) 5 % Normal 3-12 [facility] Comment on above: Performed By: #### C DP, CP #### [address] [place], [place] [id number] Camera Mechanic: Stu Baires MD Neutrophil (Seg) 84 % High 36-65 [facility] Comment on above: Performed By: #### C DP, CP #### [address] [place], [place] [id number] Camera Mechanic: Stu Baires MD NRBC Automated 0.0 per 100 WBC Normal 0.0 [facility] Comment on above: Performed By: #### C DP, CP #### [facility] [address] [place], [place] [id number] Camera Mechanic: Stu Baires MD Platelet mean volume (Bld) [Entitic vol] 10.8 fL Normal 8.1-13.5 [facility] Comment on above: Performed By: #### C DP, CP #### [facility] [address] [place], [place] [id number] Camera Mechanic: Stu Baires MD Platelets (Bld) [#/Vol] 210 10*3/uL Normal 138-453 [facility] Comment on above: Performed By: #### C DP, CP #### [address] [place] [address] Camera Mechanic: Stu Baires MD RBC (Bld) [#/Vol] 4.57 10*6/uL Normal 3.95-5.11 [facility] Comment on above: Performed By: #### C DEMETRIO, CP #### [address] [place] [address] Camera Mechanic: Stu Baires MD WBC (Bld) [#/Vol] 8.6 10*3/uL Normal 3.5-11.3 [facility] Comment on above: Performed By: #### C DP, CP #### [facility] [address] [place] [address] Camera Mechanic: Stu Baires MD [facility] Albumin [Mass/Vol] 4.3 g/dL 3.5 - 5.2 g/dL [facility] Albumin/Globulin [Mass ratio] 1.4 {ratio} 1.0 - 2.[address] [facility] ALP [Catalytic activity/Vol] 97 U/L 35 - 104 U/L [facility] ALT [Catalytic activity/Vol] 29 U/L 5 - 33 U/L [facility] Anion gap [Moles/Vol] 8 mmol/L Low 9 - 17 mmol/L [facility] AST [Catalytic activity/Vol] 25 U/L NINF - 32 U/L [facility] Bilirubin [Mass/Vol] 0.3 mg/dL 0.3 - 1.2 mg/dL [facility] Calcium [Mass/Vol] 9.3 mg/dL 8.6 - 10. 4 mg/dL [facility] Chloride [Moles/Vol] 105 mmol/L 98 - 107 mmol/L [facility] CO2 [Moles/Vol] 25 mmol/L 20 - 31 mmol/L [facility] Creatinine [Mass/Vol] 0.51 mg/dL 0.50 - 0.90 mg/dL [facility] GFR/1.73 sq M.predicted MDRD (S/P/Bld) [Vol rate/Area] - PINF [facility] Comment on above: These results are not [...] 140 mg/dL High 70 - 99 mg/dL [facility] Interpretation and review of laboratory results Abnormal [facility] Potassium [Moles/Vol] 4.3 mmol/L 3.7 - 5.3 mmol/L [facility] Protein [Mass/Vol] 7.4 g/dL 6.4 - 8.3 g/dL [facility] Sodium [Moles/Vol] 138 mmol/L 135 - 144 mmol/L [facility] Urea nitrogen [Mass/Vol] 13 mg/dL 8 - 23 mg/dL [facility] Urea nitrogen/Creatinine [Mass ratio] 25 mg/mg High 9 - 20 [facility] CT ABDOMEN PELVIS [...] Enrico Armstrong MD 01/10/23 Final result Normal [facility] CT ABDOMEN PELVIS WO CONTRAS T Additional Contrast? Noneon 01-10-2023 1. 2 mm stone at the right ureterovesical junction with mild hydroureteronephrosis. 2. 1.6 cm left adrenal nodule unchanged from 2018 compatible with a benign adenoma. No follow-up recommended. [facility] EXAMINATION: CT OF THE ABDOMEN [...] No acute osseous or soft tissue abnormality. [facility] Enrico Armstrong MD - 01/10/2023 [...] with a benign adenoma. No follow-up recommended. [facility] Radiology Study observation (narrative) [facility] CT ABDOMEN PELVIS WO CONTRAS T Additional Contrast? NoneOrdered By: Enrico Armstrong on 01-10-[address] [facility] Work Phone: Comp Metabolic Profon 2022 Albumin [Mass/Vol] 4.3 g/dL Normal 3.5-5.2 [facility] Comment on above: Performed By: #### B C #### [facility] [address] [place] [address] [place], [place] [id number] Camera Mechanic: Stu Baires MD Albumin/Glob Ratio 1.4 Normal 1.0-2.5 [facility] Comment on above: Performed By: #### B C #### [facility] [address] [place], [place] [id number] Camera Mechanic: Stu Baires MD Alkaline Phos 97 U/L Normal 35-104 [facility] Comment on above: Performed By: #### B C #### [facility] [address] [place], [place] [id number] Camera Mechanic: Stu Baires MD ALT [Catalytic activity/Vol] 29 U/L Normal 5-33 [facility] Comment on above: Performed By: #### B C #### [facility] [address] [place], [place] [id number] Camera Mechanic: Stu Baires MD Anion gap [Moles/Vol] 8 mmol/L Low 9-17 [facility] Comment on above: Performed By: #### B C #### [facility] [address] [place], [place] [id number] Camera Mechanic: Stu Baires MD AST [Catalytic activity/Vol] 25 U/L Normal <32 [facility] Comment on above: Performed By: #### B C #### [facility] [address] [place], [place] 0125583 Camera Mechanic: Stu Baires MD Bilirubin [Mass/Vol] 0.3 mg/dL Normal 0.3-1.2 [facility] Comment on above: Performed By: #### B C #### [facility] [address] [place], [place] [id number] Camera Mechanic: Stu Baires MD BUN/CRE Ratio 25 High 9-20 [facility] Comment on above: Performed By: #### B C #### [facility] [address] [place] [address] Camera Mechanic: Stu Baires MD Calcium [Mass/Vol] 9.3 mg/dL Normal 8.6-10.4 [facility] Comment on above: Performed By: #### B C #### [facility] [address] [place] [id number] Camera Mechanic: Stu Baires MD Chloride [Moles/Vol] 105 mmol/L Normal 98-107 [facility] Comment on above: Performed By: #### B C #### [facility] [address] [place] [address] Camera Mechanic: Stu Baires MD CO2 [Moles/Vol] 25 mmol/L Normal 20-31 [facility] Comment on above: Performed By: #### B C #### [facility] [address] [place] [address] Camera Mechanic: Stu Baires MD Creatinine [Mass/Vol] 0.51 mg/dL Normal 0.50-0.90 [facility] Comment on above: Performed By: #### B C #### [facility] [address] [place] [address] Camera Mechanic: Stu Baires MD GFR/1.73 sq M.predicted among non-blacks MDRD (S/P/Bld) [Vol rate/Area] mL/min/{1.73_m2} Normal >60 [facility] Comment on above: Result Comment: These [...] secretion. Performed By: #### B C #### [facility] [address] [place] [address] Camera Mechanic: Stu Baires MD Glucose [Mass/Vol] 140 mg/dL High 70-99 [facility] Comment on above: Performed By: #### B C #### [facility] [address] [place] [address] Camera Mechanic: Stu Baires MD Potassium [Moles/Vol] 4.3 mmol/L Normal 3.7-5.3 [facility] Comment on above: Performed By: #### B C #### [facility] [address] [place] [address] Camera Mechanic: Stu Baires MD Protein [Mass/Vol] 7.4 g/dL Normal 6.4-8.3 [facility] Comment on above: Performed By: #### B C #### [facility] [address] [place] [address] Camera Mechanic: Stu Baires MD Sodium [Moles/Vol] 138 mmol/L Normal 135-144 [facility] Comment on above: Performed By: #### B C #### [facility] [address] [place], [place] [id number] Camera Mechanic: Stu Baires MD Urea nitrogen [Mass/Vol] 13 mg/dL Normal 8-23 [facility] Comment on above: Performed By: #### B C #### [facility] [address] [place] [address] Camera Mechanic: Stu Baires MD Microscopic Urinalysison Bacteria LM Ql (Urine sed) TRACE Abnormal None [facility] Epithelial cells LM.HPF (Urine sed) [#/Area] 0 TO [address] [facility] Interpretation and review of laboratory results Abnormal [facility] RBC LM.HPF (Urine sed) [#/Area] 0 TO [address] [facility] WBC LM.HPF (Urine sed) [#/Area] 10 TO 20 [facility] Urinalysison 01-10-2023 Bilirubin Ql (U) Negative NEGATIVE [facility] Clarity (U) Clear Clear [facility] Color (U) Yellow Yellow [facility] Glucose Test strip (U) [Mass/Vol] Negative NEGATIVE [facility] Hemoglobin Auto test strip Ql (U) Negative NEGATIVE [facility] Interpretation and review of laboratory results Abnormal [facility] Ketones (U) [Mass/Vol] Negative NEGATIVE [facility] Leukocyte esterase Test strip Ql (U) SMALL Abnormal NEGATIVE [facility] Nitrite Ql (U) Negative NEGATIVE [facility] pH (U) 5.5 [pH] 5.0 - 9.[address] [facility] Protein (U) [Mass/Vol] Negative NEGATIVE [facility] Specific gravity (U) [Rel density] High 1.010 - 1.[address] [facility] Urobilinogen Qn (U) Normal Normal [facility] Urinalysis, Routineon 2022 Bilirubin, SemiQt,Ur Negative Normal NEG [facility] Comment on above: Performed By: #### B C #### [facility] [address] [place] [address] Camera Mechanic: Stu Baires MD Blood, Urine Negative Normal [facility] Comment on above: Performed By: #### B C #### [facility] [address] [place] [address] Camera Mechanic: Stu Baires MD Clarity (U) Clear Normal CLEAR [facility] Comment on above: Performed By: #### B C #### [facility] [address] [place] [address] Camera Mechanic: Stu Baires MD Color (U) Yellow Normal YEL [facility] Comment on above: Performed By: #### B C #### [facility] [address] [place] [address] Camera Mechanic: Stu Baires MD Glucose Ql (U) Negative Normal NEG [facility] Comment on above: Performed By: #### B C #### [facility] [address] [place], [place] [id number] Camera Mechanic: Stu Baires MD Ketones Ql (U) Negative Normal [facility]G [facility] Comment on above: Performed By: #### B C #### [facility] [address] [place], [facility]83 Camera Mechanic: Stu Baires MD Leukocyte esterase Test strip Ql (U) SMALL Abnormal NEG [facility] Comment on above: Performed By: #### B C #### [facility] [address] [place] [address] [place], [place] [id number] Camera Mechanic: Stu Baires MD Nitrite,Ur Negative Normal NEG [facility] Comment on above: Performed By: #### B C #### [facility] [address] [place] [address] Dr[place], [facility]83 Camera Mechanic: Stu Baires MD PH,Ur 5.5 Normal 5.0-9.0 [facility] Comment on above: Performed By: #### B C #### [facility] [address] [place] [address] [place], [place] [id number] Camera Mechanic: Stu Baires MD Protein Ql (U) Negative Normal NEG [facility] Comment on above: Performed By: #### B C #### [facility] [address] [place], [facility]83 Camera Mechanic: Stu Baires MD Spec. [place],Ur >1.030 High 1.010-1.020 [facility] Comment on above: Performed By: #### B C #### [facility] [address] [place] [address] [place], [place] [id number] Camera Mechanic: Stu Baires MD Urobilinogen,Ur Normal Normal NORM [facility] Comment on above: Performed By: #### B C #### [facility] [address] [place], [place] [id number] Camera Mechanic: Stu Baires MD Urinalysis,Microon 3 Bacteria TRACE Abnormal NONE [facility] Comment on above: Performed By: #### B C #### [facility] [address] [place], [place] [id number] Camera Mechanic: Stu Baires MD Epithelial cells LM Ql (Urine sed) 0 TO 2 Normal 0-25 [facility] Comment on above: Performed By: #### B C #### [facility] [address] [place], [place] [id number] Camera Mechanic: Stu Baires MD Urine RBC's 0 TO 2 Normal 0-2 [facility] Comment on above: Performed By: #### B C #### [facility] [address] [place], [place] [id number] Camera Mechanic: Stu Baires MD Urine WBC's 10 TO 20 Normal 0-5 [facility] Comment on above: Performed By: #### B C #### [facility] [address] [place] [address] [place] [address] Camera Mechanic: Stu Baires MD Cult, Bloodon 10-14-2022 Cult, Blood Specimen Description .BLOOD Special Requests 10ML LHAND Culture NO GROWTH 5 DAYS Report Status FINAL 10/14/[address] [facility] Comment on above: Performed By: #### B C #### [facility] [address] [place] [address] Camera Mechanic: Stu Baires MD Cult,Bloodon 10-14-2022 Cult,Blood Specimen Description .BLOOD Special Requests 14ml rfa Culture NO GROWTH 5 DAYS Report Status FINAL 10/14/[address] [facility] Comment on above: Performed By: #### B C #### [facility] [address] [place] [address] Camera Mechanic: Stu Baires MD CBC with Diffon 10-09-2022 Abs. Basophil 0.03 k/uL Normal 0.00-0.20 [facility] Comment on above: Performed By: #### C P, CDP #### [address] [place] [address] Camera Mechanic: Stu Baires MD Abs.Imm.Granulocyte <0.03 Normal 0.00-0.30 [facility] Comment on above: Performed By: #### C P, CDP #### [address] [place] [address] Camera Mechanic: Stu Baires MD Abs.Neutrophil (Seg) 2.53 k/uL Normal 1.50-8.10 [facility] Comment on above: Performed By: #### C P, CDP #### [address] [place], [place] [id number] Camera Mechanic: Stu Baires MD Basophils/100 WBC (Bld) 1 % Normal 0-2 [facility] Comment on above: Performed By: #### C P, CDP #### [address] [place], [place] [id number] Camera Mechanic: Stu Baires MD Eosinophils (Bld) [#/Vol] 0.06 10*3/uL Normal 0.00-0.44 [facility] Comment on above: Performed By: #### C P, CDP #### [address] [place] [address] Camera Mechanic: Stu Baires MD Eosinophils/100 WBC (Bld) 2 % Normal 1-4 [facility] Comment on above: Performed By: #### C P, CDP #### [address] [place], [place] [id number] Camera Mechanic: Stu Baires MD Erythrocyte distribution width (RBC) [Ratio] 13.0 % Normal 11.8-14.4 [facility] Comment on above: Performed By: #### C P, CDP #### [facility] [address] [place], [place] [id number] Camera Mechanic: Stu Baires MD Hematocrit (Bld) [Volume fraction] 38.9 % Normal 36.3-47.1 [facility] Comment on above: Performed By: #### C P, CDP #### [address] [place], [facility]83 Camera Mechanic: Stu Baires MD Hemoglobin (Bld) [Mass/Vol] 13.2 g/dL Normal 11.9-15.1 [facility] Comment on above: Performed By: #### C P, CDP #### [address] [place], [facility]83 Camera Mechanic: Stu Baires MD Immature granulocytes/100 WBC (Bld) 1 % High 0 [facility] Comment on above: Performed By: #### C P, CDP #### [address] [place], [facility]83 Camera Mechanic: Stu Baires MD Lymphocytes (Bld) [#/Vol] 0.71 10*3/uL Low 1.10-3.70 [facility] Comment on above: Performed By: #### C P, CDP #### [address] [place], [place] [address] Camera Mechanic: Stu Baires MD Lymphocytes/100 WBC (Bld) 18 % Low 24-43 [facility] Comment on above: Performed By: #### C P, CDP #### [address] [place], [facility]83 Camera Mechanic: Stu Baires MD MCH (RBC) [Entitic mass] 32.0 pg Normal 25.2-33.5 [facility] Comment on above: Performed By: #### C P, CDP #### [address] [place], [place] [id number] Camera Mechanic: Stu Baires MD MCHC (RBC) [Mass/Vol] 33.9 g/dL Normal 28.4-34.8 [facility] Comment on above: Performed By: #### C P, CDP #### [address] [place], [place] [id number] Camera Mechanic: Stu Baires MD MCV (RBC) [Entitic vol] 94.2 fL Normal 82.6-102.9 [facility] Comment on above: Performed By: #### C P, CDP #### [address] [place], [place] [id number] Camera Mechanic: Stu Baires MD Monocytes (Bld) [#/Vol] 0.56 10*3/uL Normal 0.10-1.20 [facility] Comment on above: Performed By: #### C P, CDP #### [address] [place], [place] [id number] Camera Mechanic: Stu Baires MD Monocytes/100 WBC (Bld) 14 % High 3-12 [facility] Comment on above: Performed By: #### C P, CDP #### [address] [place], [place] [id number] Camera Mechanic: Stu Baires MD Neutrophil (Seg) 64 % Normal 36-65 [facility] Comment on above: Performed By: #### C P, CDP #### [facility] [address] [place] [address] [place] [place], [place] [id number] Camera Mechanic: Stu Baires MD NRBC Automated 0.0 per 100 WBC Normal 0.0 [facility] Comment on above: Performed By: #### C P, CDP #### [address] [place], [place] [id number] Camera Mechanic: Stu Baires MD Platelet mean volume (Bld) [Entitic vol] 11.1 fL Normal 8.1-13.5 [facility] Comment on above: Performed By: #### C P, CDP #### [facility] [address] [place], [place] [id number] Camera Mechanic: Stu Baires MD Platelets (Bld) [#/Vol] 221 10*3/uL Normal 138-453 [facility] Comment on above: Performed By: #### C P, CDP #### [facility] [address] [place], [place] [id number] Camera Mechanic: Stu Baires MD RBC (Bld) [#/Vol] 4.13 10*6/uL Normal 3.95-5.11 [facility] Comment on above: Performed By: #### C P, CDP #### [address] [place], [place] [id number] Camera Mechanic: Stu Baires MD WBC (Bld) [#/Vol] 3.9 10*3/uL Normal 3.5-11.3 [facility] Comment on above: Performed By: #### C P, CDP #### [address] [place], [place] [id number] Camera Mechanic: Stu Baires MD Comp Metabolic Profon 2022 Albumin [Mass/Vol] 3.4 g/dL Low 3.5-5.2 [facility] Comment on above: Performed By: #### C P, CDP #### [address] [place], [place] [id number] Camera Mechanic: Stu Baires MD Albumin/Glob Ratio 1.2 Normal 1.0-2.5 [facility] Comment on above: Performed By: #### C P, CDP #### [facility] [address] [place], [place] [id number] Camera Mechanic: Stu Baires MD Alkaline Phos 108 U/L High 35-104 [facility] Comment on above: Performed By: #### C P, CDP #### [facility] [address] [place], [place] 6492583 Camera Mechanic: Stu Baires MD ALT [Catalytic activity/Vol] 30 U/L Normal 5-33 [facility] Comment on above: Performed By: #### C P, CDP #### [facility] [address] [place], [place] [id number] Camera Mechanic: Stu Baires MD Anion gap [Moles/Vol] 8 mmol/L Low 9-17 [facility] Comment on above: Performed By: #### C P, CDP #### [facility] [address] [place], [place] [id number] Camera Mechanic: Stu Baires MD AST [Catalytic activity/Vol] 29 U/L Normal <32 [facility] Comment on above: Performed By: #### C P, CDP #### [facility] [address] [place], [place] 8322683 Camera Mechanic: Stu Baires MD Bilirubin [Mass/Vol] 0.5 mg/dL Normal 0.3-1.2 [facility] Comment on above: Performed By: #### C P, CDP #### [facility] [address] [place], [place] [id number] Camera Mechanic: Stu Baires MD BUN/CRE Ratio 18 Normal 9-20 [facility] Comment on above: Performed By: #### C P, CDP #### [facility] [address] [place], [place] [id number] Camera Mechanic: Stu Baires MD Calcium [Mass/Vol] 8.4 mg/dL Low 8.6-10.4 [facility] Comment on above: Performed By: #### C P, CDP #### [facility] [address] [place], [place] 1092383 Camera Mechanic: Stu Baires MD Chloride [Moles/Vol] 105 mmol/L Normal 98-107 [facility] Comment on above: Performed By: #### C P, CDP #### [facility] [address] [place] [address] Camera Mechanic: Stu Baires MD CO2 [Moles/Vol] 23 mmol/L Normal 20-31 [facility] Comment on above: Performed By: #### C P, CDP #### [facility] [address] [place] [address] Camera Mechanic: Stu Baires MD Creatinine [Mass/Vol] 0.49 mg/dL Low 0.50-0.90 [facility] Comment on above: Performed By: #### C P, CDP #### [facility] [address] [place] [address] Camera Mechanic: Stu Baires MD GFR/1.73 sq M.predicted among non-blacks MDRD (S/P/Bld) [Vol rate/Area] mL/min/{1.73_m2} Normal >60 [facility] Comment on above: Result Comment: These [...] Performed By: #### C P, CDP #### [facility] [address] [place] [address] Camera Mechanic: Stu Baires MD Glucose [Mass/Vol] 102 mg/dL High 70-99 [facility] Comment on above: Performed By: #### C P, CDP #### [facility] [address] [place] [address] Camera Mechanic: Stu Baires MD Potassium [Moles/Vol] 3.6 mmol/L Low 3.7-5.3 [facility] Comment on above: Performed By: #### C P, CDP #### [facility] [address] [place], [place] 8553783 Camera Mechanic: Stu Baires MD Protein [Mass/Vol] 6.2 g/dL Low 6.4-8.3 [facility] Comment on above: Performed By: #### C P, CDP #### [facility] [address] [place], [place] [id number] Camera Mechanic: Stu Baires MD Sodium [Moles/Vol] 136 mmol/L Normal 135-144 [facility] Comment on above: Performed By: #### C P, CDP #### [address] [place], [place] [id number] Camera Mechanic: Stu Baires MD Urea nitrogen [Mass/Vol] 9 mg/dL Normal 6-20 [facility] Comment on above: Performed By: #### C P, CDP #### [address] [place], [place] [id number] Camera Mechanic: Stu Baires MD Lactic Acidon 4 Lactate [Moles/Vol] 1.0 mmol/L Normal 0.5-2.2 [facility] Comment on above: Performed By: #### L ACTIC #### [facility] [address] [place] [address] [place], [place] [id number] Camera Mechanic: Stu Baires MD Urinalysis, Routineon 2022 Bilirubin, SemiQt,Ur Negative Normal NEG [facility] Comment on above: Performed By: #### U MICAO, UA #### [address] [place], [place] [id number] Camera Mechanic: Stu Baires MD Blood, Urine Negative Normal NEG [facility] Comment on above: Performed By: #### U MICAO, UA #### [facility] [address] [place], [place] [id number] Camera Mechanic: Stu Baires MD Clarity (U) Clear Normal CLEAR [facility] Comment on above: Performed By: #### U MICAO, UA #### [facility] [address] [place] [address] Dr[place], [place] [id number] Camera Mechanic: Stu Baires MD Color (U) Yellow Normal YEL [facility] Comment on above: Performed By: #### U MICAO, UA #### [facility] [address] [place] [address] Dr[place], [place] [id number] Camera Mechanic: Stu Baires MD Glucose Ql (U) Negative Normal NEG [facility] Comment on above: Performed By: #### U MICAO, UA #### [facility] [address] [place] [address] Dr[place], [place] [id number] Camera Mechanic: Stu Baires MD Ketones Ql (U) Negative Normal NEG [facility] Comment on above: Performed By: #### U MICAO, UA #### [address] [place], [place] [id number] Camera Mechanic: Stu Baires MD Leukocyte esterase Test strip Ql (U) TRACE Abnormal NEG [facility] Comment on above: Performed By: #### U MICAO, UA #### [facility] [address] [place] [address] Dr[place], [place] [id number] Camera Mechanic: Stu Baires MD Nitrite,Ur Negative Normal NEG [facility] Comment on above: Performed By: #### U MICAO, UA #### [address] [place] [address] Camera Mechanic: Stu Baires MD PH,Ur 6.0 Normal 5.0-9.0 [facility] Comment on above: Performed By: #### U MICAO, UA #### [facility] [address] [place] [address] Dr[place], [place] [id number] Camera Mechanic: Stu Baires MD Protein Ql (U) 1+ Abnormal NEG [facility] Comment on above: Performed By: #### U TISHAO, UA #### [facility] [address] [place], [place] [id number] Camera Mechanic: Stu Baires MD Spec. [place],Ur >1.030 High 1.010-1.020 [facility] Comment on above: Performed By: #### U TISHAO, UA #### [facility] [address] [place], [place] 2994883 Camera Mechanic: Stu Baires MD Urobilinogen,Ur Normal Normal NORM [facility] Comment on above: Performed By: #### U TISHAO, UA #### [facility] [address] [place] [address] Dr[place], [place] [id number] Camera Mechanic: Stu Baires MD Urinalysis,Microon 3 Bacteria 2+ Abnormal NONE [facility] Comment on above: Performed By: #### U TISHAO, UA #### [address] [place], [place] 1214483 Camera Mechanic: Stu Baires MD Epithelial cells LM Ql (Urine sed) 2 TO 5 Normal 0-25 [facility] Comment on above: Performed By: #### U TISHAO, UA #### [facility] [address] [place] [address] Dr[place], [place] [id number] Camera Mechanic: Stu Baires MD Mucus Strands 1+ Abnormal NONE [facility] Comment on above: Performed By: #### U TISHAO, UA #### [facility] [address] [place], [place] [id number] Camera Mechanic: Stu Baires MD Urine RBC's None Normal 0-2 [facility] Comment on above: Performed By: #### U MICAO, UA #### [facility] [address] [place], [place] [id number] Camera Mechanic: Stu Baires MD Urine WBC's 2 TO 5 Normal 0-5 [facility] Comment on above: Performed By: #### U MICAO, UA #### [facility] [address] [place], [place] 8370983 Camera Mechanic: Stu Baires MD FREE T3on 06-19-2022 FREE T3 4.07 pg/mlL Critically high 2.18-3.98 [facility] Comment on above: Performed By: #### T 4, FT3, TSH ####[facility] [address] [place] [address]Dr. Vicenta Bryant T4on 06-19-2022 T4 [Mass/Vol] 7.70 ug/dL Normal 4.80-13.90 [facility] Comment on above: Performed By: #### T 4, FT3, TSH ####[facility] [address] [place] [address]Dr. Vicenta Bryant TSHon 06-19-2022 TSH 4.022 uIU/mL Critically high 0.358-3.740 [facility] Comment on above: Performed By: #### T 4, FT3, TSH ####[facility] [address] [place] [address]Dr. Vicenta Bryant FREE T3on 05-23-2022 FREE T3 3.87 pg/mlL Normal 2.18-3.98 [facility] Comment on above: Performed By: #### T SH, FT3, T4 #### [facility] [address] [place] [address] [address] Vicenta Bryant T4on 05-23-2022 T4 [Mass/Vol] 7.00 ug/dL Normal 4.80-13.90 [facility] Comment on above: Performed By: #### T SH, FT3, T4 #### [facility] [address] [place] [address] [address] Vicenta Bryant TSHon 05-23-2022 TSH 4.402 uIU/mL Critically high 0.358-3.740 [facility] Comment on above: Performed By: #### T SH, FT3, T4 #### [facility] [address] [place], [place] [address] Dr. Vicenta Bryant MG MAMM DX FLAQUITA 3D FU CADon 0 03-28-2022 MG MAMM DX FLAQUITA 3D FU CAD Patient: YAS KURTZ Exam Date: 03/28/2022 : 1960 Gender:F Ordering : DR BULMARO PADRON . Admission #: [id number] Family : Order #: [id number] CLICK HERE TO VIEW EXAM RADIOLOGY REPORT [...] lung cancer at age 57. LOCATION: [facility] BREAST COMPOSITION: Almost entirely fatty. FINDINGS: [...] Cobian M.D. on 03/28/2022 at 11:35 Normal [facility] OCC BLD IMMUNO SCREENon 03-15 OCCULT BLOOD Negative Normal NEGATIVE [facility] Comment on above: Performed By: #### O BSCRN #### [facility] [address] [place], [place] [address] Dr. Vicenta Bryant INSULINon 08-24-2022 Insulin 10.8 uIU/mL Normal 2.6-24.9 [facility] Comment on above: Performed By: #### I NSULIN #### [facility] [address] [place], [place] [address] Dr. Vicenta Bryant T4, T3U, FTI LABCORPon 03-07 Free Thyroxine Index 1.9 Normal 1.2-4.9 [facility] Comment on above: Performed By: #### T HYLC ####[facility] [address] [place], [place] [address]HpDr. Vicenta Bryant T3 Uptake 25 % Normal 24-39 [facility] Comment on above: Performed By: #### T HYLC ####[facility] [address] [place], [place] [address]ZbDr. Vicenta Bryant T4 [Mass/Vol] 7.6 ug/dL Normal 4.5-12.0 [facility] Comment on above: Performed By: #### T HYLC ####[facility] [address] [place], [place] [address]OuDr. Vicenta Bryant VIT D 25-OH LABCORPon 2021 Vitamin D, 25-Hydroxy 24.3 ng/mL Critically low 30.0-100.0 [facility] Comment on above: Result Comment: Susi min D deficiency has been defined by the [place] of [employer] and an Endocrine Society practice guideline as a level of serum 25-OH vitamin D less than 20 ng/mL (1,2). The Endocrine Society went on to further define vitamin D insufficiency as a level between 21 and 29 ng/mL (2). 1. IOM ([place] of Medicine). 2010. Dietary reference intakes for calcium and D. [place]: The National Academies Press. 2. Dea MF, Angelika NC, Nae-Huber SHEARER, et al. Evaluation, treatment, and prevention of vitamin D deficiency: an Endocrine Society clinical practice guideline. JCEM. 2010; 96(7):1911-30. Performed By: #### V ITADLC ####[facility] [address] [place] [id number]. Vicenta Bryant CBC AUTO DIFFon 03-06-2022 BASO # 0.0 103/ul Normal 0.0-0.1 [facility] Comment on above: Performed By: #### C BC #### [facility] [address] [place] [address] Dr. Vicenta Bryant Basophils/100 WBC (Bld) 0.6 % Normal 0.2-2.0 [facility] Comment on above: Performed By: #### C BC #### [facility] [address] [place] [address] Dr. Vicenta Bryant EO # 0.1 103/ul Normal 0.0-0.7 [facility] Comment on above: Performed By: #### C BC #### [facility] [address] [place] [address] Dr. Vicenta Bryant Eosinophils/100 WBC (Bld) 1.1 % Normal 0.9-7.0 [facility] Comment on above: Performed By: #### C BC #### [facility] [address] [place] [address] Dr. Vicenta Bryant Erythrocyte distribution width (RBC) [Ratio] 12.6 % Normal 11.0-15.0 [facility] Comment on above: Performed By: #### C BC #### [facility] [address] [place] [address] Dr. Vicenta Bryant Hematocrit (Bld) [Volume fraction] 41.1 % Normal 36.0-48.0 [facility] Comment on above: Performed By: #### C BC #### [facility] [address] [place] [address] Dr. Vicenta Bryant Hemoglobin (Bld) [Mass/Vol] 13.4 g/dL Normal 12.0-16.0 [facility] Comment on above: Performed By: #### C BC #### [facility] [address] [place] [address] Dr. Vicenta Bryant IG # 0.01 10e3/ul Normal 0.00-0.03 [facility] Comment on above: Performed By: #### C BC #### [facility] [address] [place] [address] Dr. Vicenta Bryant IG % 0.2 % Normal 0.0-0.5 [facility] Comment on above: Performed By: #### C BC #### [facility] [address] [place] [address] Dr. Vicenta Bryant LYMPH # 1.6 103/ul Normal 1.2-3.8 [facility] Comment on above: Performed By: #### C BC #### [facility] [address] [place] [address] Dr. Vicenta Bryant Lymphocytes/100 WBC (Bld) 25.6 % Normal 20.5-60.0 [facility] Comment on above: Performed By: #### C BC #### [facility] [address] [place] [address] Dr. Vicenta Bryant MANUAL DIFF REQ NO Normal [facility] Comment on above: Performed By: #### C BC #### [facility] [address] [place] [address] Dr. Vicenta Bryant MCH (RBC) [Entitic mass] 31.0 pg Normal 26.7-34.0 [facility] Comment on above: Performed By: #### C BC #### [facility] [address] [place] [address] Dr. Vicenta Bryant MCHC (RBC) [Mass/Vol] 32.6 g/dL Normal 29.9-35.2 [facility] Comment on above: Performed By: #### C BC #### [facility] [address] [place] [address] Dr. Vicenta Bryant MCV (RBC) [Entitic vol] 95.1 fL Normal 81.0-99.0 [facility] Comment on above: Performed By: #### C BC #### [facility] [address] [place] [address] Dr. Vicenta Bryant MONO # 0.5 103/ul Normal 0.3-0.8 [facility] Comment on above: Performed By: #### C BC #### [facility] [address] [place] [address] Dr. Vicenta Bryant Monocytes/100 WBC (Bld) 7.8 % Normal 1.7-12.0 [facility] Comment on above: Performed By: #### C BC #### [facility] [address] [place] [address] [address] Vicenta Bryant NEUT # 4.0 103/ul Normal 1.4-6.5 [facility] Comment on above: Performed By: #### C BC #### [facility] [address] [place] [address] [address] Vicenta Bryant Neutrophils/100 WBC (Bld) 64.7 % Normal 43.0-75.0 [facility] Comment on above: Performed By: #### C BC #### [facility] [address] [place] [address] [address] Vicenta Bryant Platelet mean volume (Bld) [Entitic vol] 10.8 fL Normal 9.5-13.5 [facility] Comment on above: Performed By: #### C BC #### [facility] [address] [place] [address] [address] Vicenta Bryant PLT 210 103/ul Normal 150-450 [facility] Comment on above: Performed By: #### C BC #### [facility] [address] [place] [address] [address] Vicenta Bryant RBC 4.32 106/ul Normal 4.20-5.40 [facility] Comment on above: Performed By: #### C BC #### [facility] [address] [place] [address] [address] Vicenta Bryant WBC 6.2 103/ul Normal 4.0-11.0 [facility] Comment on above: Performed By: #### C BC #### [facility] [address] [place] [address] Dr. Vicenta Bryant GLYCOHEMOGLOBIN A1Con 2021 ADA RECOMMENDATION SEE BELOW Normal [facility] Comment on above: Result Comment: ADA RECOMMENDED LIMIT 4.0 - 6.0 ADA THERAPEUTIC TARGET < 7.0 ACTION SUGGESTED > 7.0 Performed By: #### A 1C #### [facility] [address] [place] [address] [address] Vicenta Bryant Glucose [Mass/Vol] 91 mg/dL Normal [facility] Comment on above: Performed By: #### A 1C #### [facility] [address] [place], [place] [address] Dr. Vicenta Bryant HbA1c (Bld) [Mass fraction] 4.8 % Normal 4.5-6.2 [facility] Comment on above: Performed By: #### A 1C #### [facility] [address] [place], [place] [address] Dr. Vicenta Bryant IRONon 03-06-2022 Iron [Mass/Vol] 73.0 ug/dL Normal 50.0-170.0 [facility] Comment on above: Performed By: #### B 12FOL, IRON ####[facility] [address] [place], [place] [address]XcDr. Vicenta Bryant LIPID PROFILEon 03-06-2022 CHOL-HDL RATIO NORM SEE BELOW Normal [facility] [facility] Comment on above: Result Comment: 3.3 - 4.4 LOW RISK 4.4 - 7.1 AVERAGE RISK 7.1 - 11.0 MODERATE RISK >11.0 HIGH RISK Performed By: #### L IPID, TSH, CMP ####[facility] [address] [place], [place] [address]Ko. Vicenta Bryant Cholesterol [Mass/Vol] 134 mg/dL Normal <=200 [facility] Comment on above: Performed By: #### L IPID, TSH, CMP ####[facility] [address] [place], [place] [address]Vb. Vicenta Bryant Cholesterol in HDL [Mass/Vol] 41 mg/dL Normal 40-60 [facility] Comment on above: Performed By: #### L IPID, TSH, CMP ####[facility] [address] [place], [place] [address]Pj. Vicenta Bryant Cholesterol in LDL [Mass/Vol] 81.2 mg/dL Normal [facility] Comment on above: Performed By: #### L IPID, TSH, CMP ####[facility] [address] [place], [place] [address]Ok. Vicenta Bryant Cholesterol.total/C holesterol in HDL [Mass ratio] 3.3 {ratio} Normal [facility] Comment on above: Performed By: #### L IPID, TSH, CMP ####[facility] [address] [place] [address]Dr. Vicenta Bryant HDL NORMAL > or = 60 mg/dl - LO W CARDIOVASCULAR RISK <40 mg/dl - HIGH CARDIOVASCULAR RISK Normal [facility] Comment on above: Performed By: #### L IPID, TSH, CMP ####[facility] [address] [place] [address]Dr. Vicenta Bryant LDL CALC NORMAL SEE BELOW Normal [facility] Comment on above: Result Comment: <100 mg/dl OPTIMAL 100 - 129 mg/dl NEAR OR ABOVE OPTIMAL 130 - 159 mg/dl BORDERLINE HIGH 160 - 189 mg/dl HIGH >190 mg/dl VERY HIGH Performed By: #### L IPID, TSH, CMP ####[facility] [address] [place] [address]Dr. Vicenta Bryant Triglyceride [Mass/Vol] 59 mg/dL Normal <=150 [facility] Comment on above: Performed By: #### L IPID, TSH, CMP ####[facility] [address] [place] [address]Dr. Vicenta Bryant VLDL CALC 11.8 mg/dL Normal [facility] Comment on above: Performed By: #### L IPID, TSH, CMP ####[facility] [address] [place] [address]Dr. Vicenta Bryant PROF 14(COMP METB)on 022 Albumin [Mass/Vol] 3.7 g/dL Normal 3.4-5.0 [facility] Comment on above: Performed By: #### L IPID, TSH, CMP ####[facility] [address] [place] [address]Dr. Vicenta Bryant Albumin/Globulin [Mass ratio] 1.1 {ratio} Normal [facility] Comment on above: Performed By: #### L IPID, TSH, CMP ####[facility] [address] [place] [address]Dr. Vicenta Bryant ALP [Catalytic activity/Vol] 115 U/L Normal 46-116 [facility] Comment on above: Performed By: #### L IPID, TSH, CMP ####[facility] [address] [place] [address]Dr. Vicenta Bryant ALT [Catalytic activity/Vol] 38 U/L Normal 14-59 [facility] Comment on above: Performed By: #### L IPID, TSH, CMP ####[facility] [address] [place] [address]Dr. Vicenta Bryant Anion gap [Moles/Vol] 12.4 mmol/L Normal [facility] Comment on above: Performed By: #### L IPID, TSH, CMP ####[facility] [address] [place], [place] [address]Dr. Vicenta Bryant AST [Catalytic activity/Vol] 27 U/L Normal 15-37 [facility] Comment on above: Performed By: #### L IPID, TSH, CMP ####[facility] [address] [place], [place] [address]Dr. Vicenta Bryant Bilirubin [Mass/Vol] 0.3 mg/dL Normal 0.2-1.0 [facility] Comment on above: Performed By: #### L IPID, TSH, CMP ####[facility] [address] [place], [place] [address]Dr. Vicenta rByant Calcium [Mass/Vol] 8.9 mg/dL Normal 8.5-10.1 [facility] Comment on above: Performed By: #### L IPID, TSH, CMP ####[facility] [address] [place], [place] [address]Dr. Vicenta Bryant Chloride [Moles/Vol] 104 mmol/L Normal 98-107 [facility] Comment on above: Performed By: #### L IPID, TSH, CMP ####[facility] [address] [place], [place] [address]Dr. Vicenta Bryant CO2 [Moles/Vol] 27.8 mmol/L Normal 21.0-32.0 [facility] Comment on above: Performed By: #### L IPID, TSH, CMP ####[facility] [address] [place] [address]Dr. Vicenta Bryant Creatinine [Mass/Vol] 0.53 mg/dL Critically low 0.55-1.02 [facility] Comment on above: Performed By: #### L IPID, TSH, CMP ####[facility] [address] [place] [address]Dr. Vicenta Bryant EGFR-AF MALTESE >60 Normal >=60 [facility] Comment on above: Performed By: #### L IPID, TSH, CMP ####[facility] [address] [place] [address]Dr. Vicenta Bryant EGFR-NON AF MALTESE >60 Normal >=60 [facility] Comment on above: Performed By: #### L IPID, TSH, CMP ####[facility] [address] [place], [place] [address]Dr. Vicenta Bryant Globulin (S) [Mass/Vol] 3.3 g/dL Normal [facility] Comment on above: Performed By: #### L IPID, TSH, CMP ####[facility] [address] [place], [place] [address]Dr. Vicenta Bryant Glucose [Mass/Vol] 88 mg/dL Normal 74-106 [facility] Comment on above: Performed By: #### L IPID, TSH, CMP ####[facility] [address] [place] [address]Dr. Jocydawn Bryant Potassium [Moles/Vol] 4.4 mmol/L Normal 3.5-5.1 [facility] Comment on above: Performed By: #### L IPID, TSH, CMP ####[facility] [address] [place] [address]Dr. Vicenta Bryant Protein [Mass/Vol] 7.0 g/dL Normal 6.4-8.2 [facility] Comment on above: Performed By: #### L IPID, TSH, CMP ####[facility] [address] [place] [address]Dr. Vicenta Bryant Sodium [Moles/Vol] 139 mmol/L Normal 136-145 [facility] Comment on above: Performed By: #### L IPID, TSH, CMP ####[facility] [address] [place] [address]Dr. Vicenta Bryant Urea nitrogen [Mass/Vol] 10.0 mg/dL Normal 7.0-18.0 [facility] Comment on above: Performed By: #### L IPID, TSH, CMP ####[facility] [address] [place] [address]Dr. Vicenta Manny Urea nitrogen/Creatinine [Mass ratio] 18.8 mg/mg Normal [facility] Comment on above: Performed By: #### L IPID, TSH, CMP ####[facility] [address] [place] [address]Dr. Jocydawn Manny TSHon 03-06-2022 TSH 4.364 uIU/mL Critically high 0.358-3.740 [facility] Comment on above: Performed By: #### L IPID, TSH, CMP ####[facility] [address] [place] [address]Dr. Vicenta Bryant VIT B12 AND FOLATEon 022 Cobalamin (Vitamin B12) [Mass/Vol] 761.0 pg/mL Normal 193.0-986.0 [facility] Comment on above: Performed By: #### B 12FOL, IRON ####[facility] [address] [place] [address]Dr. Vicetna Manny FOLATE 15.40 ng/mL Normal 8.60-58.90 [facility] Comment on above: Performed By: #### B 12FOL, IRON ####[facility] [address] [place] [address]Dr. Vicenta Bryant MAMMO POST BIOPSY LEFTon MAMMO POST BIOPSY LEFT Patient: YAS KURTZ Exam Date: 07/25/2021 : 1960 Gender:F Ordering : DR BULMARO PADRON . Admission #: [id number] Family : Order #: [id number] CLICK HERE TO VIEW EXAM This report [...] Cobian M.D. on 08/03/2021 at 07:08 Normal [facility] US VAC ASST BX BRST LT W CLI Aryan 07-25-2021 US VAC ASST BX BRST LT W CLIP Patient: YAS KURTZ Exam Date: 07/25/2021 : 1960 Gender:F Ordering : DR BULMARO PADRON . Admission #: [id number] Family : Order #: [id number] CLICK HERE TO VIEW EXAM This report [...] M.D. on 08/03/2021 at 07:07 Normal [facility] MG MAMM LT DIAG W CADon -0 MG MAMM LT DIAG W CAD Patient: YAS KURTZ Exam Date: 07/20/2021 : 1960 Gender:F Ordering : DR BULMARO PADRON . Admission #: [id number] Family : Order #: [id number] CLICK HERE TO VIEW EXAM RADIOLOGY REPORT [...] lung cancer at age 57. LOCATION: [facility] BREAST COMPOSITION: Almost entirely fatty. FINDINGS: [...] M.D. on 07/20/2021 at 15:20 Normal [facility] US BREAST LEFT LIMITEDon US BREAST LEFT LIMITED Patient: YAS KURTZ Exam Date: 07/20/2021 : 1960 Gender:F Ordering : DR BULMARO PADRON . Admission #: [id number] Family : Order #: [id number] CLICK HERE TO VIEW EXAM RADIOLOGY REPORT [...] lung cancer at age 57. LOCATION: [facility] BREAST COMPOSITION: Almost entirely fatty. FINDINGS: [...] Cobian M.D. on 07/20/2021 at 15:20 Normal [facility] JOSE Antinuclear Antibodieson 08-08-2020 JOSE IFA Note [address] [facility] Comment on above: Order Comment: Speci men Comment: Test(s) 810485-Vtmv-I4 HOUSE BUILDER (Fibrillarin)(RDL) Specimen Comment: was developed and its performance characteristics Specimen Comment: determined by [facility]. It has not been cleared or approved Specimen Comment: by the Food and Drug Administration. Specimen Comment: Test(s) 077588-Chza-GS/Scl-75 Ab (RDL) Specimen Comment: was developed and [...] titers Nucleosomes, Histones Drug-induced SLE Speckled Sm, HOUSE BUILDER, SCL-70, SLE,MCTD,PSS (diffuse form), SS-A/SS-B Sjogrens Nucleolar SCL-70, PM-1/SCL High titers Scleroderma, PM/DM Centromere Centromere PSS (limited form) w/Crest syndrome variable Nuclear Dot Sp100,o23-hvltyp Primary Biliary Cirrhosis Nuclear GP210, Primary Biliary Cirrhosis Membrane rosi A,B,C Performed at: [address] [id number] Camera Mechanic: David Pace PhD, Phone: [phone] Performed By: #### A NTIR, RNA POLYMR, HEP C, ANTI TH TO, HBCAB, PM-SCL ABS, U3 HOUSE BUILDER, HBSAG, HBSAB, JOSE #### [facility] , #### CRP, CK, CMP #### [address] Antinuclear Abs, IFA Positive Critically abnormal . [facility] Comment on above: Order Comment: Speci men Comment: Test(s) 769476-Pngg-J0 HOUSE BUILDER (Fibrillarin)(RDL) Specimen Comment: was developed and its performance characteristics Specimen Comment: determined by [facility]. It has not been cleared or approved Specimen Comment: by the Food and Drug Administration. Specimen Comment: Test(s) 963040-Qahf-AH/Scl-75 Ab (RDL) Specimen Comment: was developed and its performance characteristics Specimen Comment: determined by [facility]. It has not been cleared or approved Specimen Comment: by the Food and Drug Administration. Result Comment: Nega tive <1:80 Borderline 1:80 Positive >1:80 Performed By: #### A NTIR, RNA POLYMR, HEP C, ANTI TH TO, HBCAB, PM-SCL ABS, U3 HOUSE BUILDER, HBSAG, HBSAB, JOSE #### [facility] , #### CRP, CK, CMP #### [facility] [address] Speckled Pattern 1:640 High . [facility] Comment on above: Order Comment: Speci men Comment: Test(s) 561434-Wiwx-P7 HOUSE BUILDER (Fibrillarin)(RDL) Specimen Comment: was developed and its performance characteristics Specimen Comment: determined by [facility]. It has not been cleared or approved Specimen Comment: by the Food and Drug Administration. Specimen Comment: Test(s) 172298-Dcra-LS/Scl-75 Ab (RDL) Specimen Comment: was developed and its performance characteristics Specimen Comment: determined by [facility]. It has not been cleared or approved Specimen Comment: by the Food and Drug Administration. Performed By: #### A NTIR, RNA POLYMR, HEP C, ANTI TH TO, HBCAB, PM-SCL ABS, U3 HOUSE BUILDER, HBSAG, HBSAB, JOSE #### [facility] , #### CRP, CK, CMP #### [facility] [address] [place] [address] [place] Anti-RNPon 08-08-2020 Anti-HOUSE BUILDER <0.2 Normal 0.0-0.9 [facility] Comment on above: Order Comment: Speci men Comment: Test(s) 245539-Vgob-B4 HOUSE BUILDER (Fibrillarin)(RDL) Specimen Comment: was developed and its performance characteristics Specimen Comment: determined by [facility]. It has not been cleared or approved Specimen Comment: by the Food and Drug Administration. Specimen Comment: Test(s) 741574-Mfrm-PJ/Scl-75 Ab (RDL) Specimen Comment: was developed and its performance characteristics Specimen Comment: determined by [facility]. It has not been cleared or approved Specimen Comment: by the Food and Drug Administration. Result Comment: Perf ormed at: - [facility] [address] [id number] Camera Mechanic: David Pace PhD, Phone: [phone] Performed By: #### A NTIR, RNA POLYMR, HEP C, ANTI TH TO, HBCAB, PM-SCL ABS, U3 HOUSE BUILDER, HBSAG, HBSAB, JOSE #### [facility] , #### CRP, CK, CMP #### [address] C-Reactive Proteinon CRP [Mass/Vol] 0.6 mg/dL Normal 0.0-1.0 [facility] Comment on above: Result Comment: PERF ORMED BY: [place] [address] PATHOLOGIST TICKER MAINTAINER BEAU JOHNSON M.D. Performed By: #### A NTIR, RNA POLYMR, HEP C, ANTI TH TO, HBCAB, PM-SCL ABS, U3 HOUSE BUILDER, HBSAG, HBSAB, JOSE #### [facility] , #### CRP, CK, CMP #### [address] Complement C3on 08-08-2020 Complement C3 125 mg/dL Normal 82-167 [facility] Comment on above: Result Comment: Perf ormed at: [address] [id number] Camera Mechanic: David Pace PhD, Phone: [phone] Performed By: #### A NTIR, RNA POLYMR, HEP C, ANTI TH TO, HBCAB, PM-SCL ABS, U3 HOUSE BUILDER, HBSAG, HBSAB, JOSE #### [facility] , #### CRP, CK, CMP #### [address] Complement C4on 08-08-2020 Complement C4 17 mg/dL Normal 12-38 [facility] Comment on above: Performed By: #### A NTIR, RNA POLYMR, HEP C, ANTI TH TO, HBCAB, PM-SCL ABS, U3 HOUSE BUILDER, HBSAG, HBSAB, JOSE #### [facility] , #### CRP, CK, CMP #### [address] Complement Total (CH50)on Complement Total (CH50) >60 Normal >41 [facility] Comment on above: Result Comment: [...] of range values. Performed at: - [facility] [address] [id number] Camera Mechanic: David Pace PhD, Phone: [phone] PERFORMED BY: [place] [address] PATHOLOGIST TICKER MAINTAINER BEAU JOHNSON M.D. Performed By: #### A NTIR, RNA POLYMR, HEP C, ANTI TH TO, HBCAB, PM-SCL ABS, U3 HOUSE BUILDER, HBSAG, HBSAB, JOSE #### [facility] , #### CRP, CK, CMP #### [address] Complete Blood Count Auto Di ffon 08-08-2020 Basophils (Bld) [#/Vol] 0.0 10*3/uL Normal 0.0-0.2 [facility] Comment on above: Performed By: #### A NTIR, RNA POLYMR, HEP C, ANTI TH TO, HBCAB, PM-SCL ABS, U3 HOUSE BUILDER, HBSAG, HBSAB, JOSE #### [facility] , #### CRP, CK, CMP #### [address] Basophils/100 WBC (Bld) 0.4 % Normal . [facility] Comment on above: Performed By: #### A NTIR, RNA POLYMR, HEP C, ANTI TH TO, HBCAB, PM-SCL ABS, U3 HOUSE BUILDER, HBSAG, HBSAB, JOSE #### [facility] , #### CRP, CK, CMP #### [address] Eosinophils (Bld) [#/Vol] 0.0 10*3/uL Normal 0.0-0.45 [facility] Comment on above: Performed By: #### A NTIR, RNA POLYMR, HEP C, ANTI TH TO, HBCAB, PM-SCL ABS, U3 HOUSE BUILDER, HBSAG, HBSAB, JOSE #### [facility] , #### CRP, CK, CMP #### [address] Eosinophils/100 WBC (Bld) 0.6 % Normal . [facility] Comment on above: Performed By: #### A NTIR, RNA POLYMR, HEP C, ANTI TH TO, HBCAB, PM-SCL ABS, U3 HOUSE BUILDER, HBSAG, HBSAB, JOSE #### [facility] , #### CRP, CK, CMP #### [address] Erythrocyte distribution width (RBC) [Ratio] 12.7 % Normal 11.9-15.3 [facility] Comment on above: Performed By: #### A NTIR, RNA POLYMR, HEP C, ANTI TH TO, HBCAB, PM-SCL ABS, U3 HOUSE BUILDER, HBSAG, HBSAB, JOSE #### [facility] , #### CRP, CK, CMP #### [address] Hematocrit (Bld) [Volume fraction] 40.9 % Normal 34.0-46.4 [facility] Comment on above: Performed By: #### A NTIR, RNA POLYMR, HEP C, ANTI TH TO, HBCAB, PM-SCL ABS, U3 HOUSE BUILDER, HBSAG, HBSAB, JOSE #### [facility] , #### CRP, CK, CMP #### [address] Hemoglobin (Bld) [Mass/Vol] 13.5 g/dL Normal 11.8-15.4 [facility] Comment on above: Performed By: #### A NTIR, RNA POLYMR, HEP C, ANTI TH TO, HBCAB, PM-SCL ABS, U3 HOUSE BUILDER, HBSAG, HBSAB, JOSE #### [facility] , #### CRP, CK, CMP #### [address] Lymphocytes (Bld) [#/Vol] 1.7 10*3/uL Normal 1.00-4.8 [facility] Comment on above: Performed By: #### A NTIR, RNA POLYMR, HEP C, ANTI TH TO, HBCAB, PM-SCL ABS, U3 HOUSE BUILDER, HBSAG, HBSAB, JOSE #### [facility] , #### CRP, CK, CMP #### [address] Lymphocytes/100 WBC (Bld) 25.7 % Normal . [facility] Comment on above: Performed By: #### A NTIR, RNA POLYMR, HEP C, ANTI TH TO, HBCAB, PM-SCL ABS, U3 HOUSE BUILDER, HBSAG, HBSAB, JOSE #### [facility] , #### CRP, CK, CMP #### [address] MCH (RBC) [Entitic mass] 32.9 g/dL Normal 32.0-35.0 [facility] Comment on above: Performed By: #### A NTIR, RNA POLYMR, HEP C, ANTI TH TO, HBCAB, PM-SCL ABS, U3 HOUSE BUILDER, HBSAG, HBSAB, JOSE #### [facility] , #### CRP, CK, CMP #### [address] MCH (RBC) [Entitic mass] 31.1 pg Normal 24.7-34.3 [facility] Comment on above: Performed By: #### A NTIR, RNA POLYMR, HEP C, ANTI TH TO, HBCAB, PM-SCL ABS, U3 HOUSE BUILDER, HBSAG, HBSAB, JOSE #### [facility] , #### CRP, CK, CMP #### [address] MCV (RBC) [Entitic vol] 94.4 fL Normal 80-100 [facility] Comment on above: Performed By: #### A NTIR, RNA POLYMR, HEP C, ANTI TH TO, HBCAB, PM-SCL ABS, U3 HOUSE BUILDER, HBSAG, HBSAB, JOSE #### [facility] , #### CRP, CK, CMP #### [address] Monocytes (Bld) [#/Vol] 0.6 10*3/uL Normal 0.0-0.8 [facility] Comment on above: Performed By: #### A NTIR, RNA POLYMR, HEP C, ANTI TH TO, HBCAB, PM-SCL ABS, U3 HOUSE BUILDER, HBSAG, HBSAB, JOSE #### [facility] , #### CRP, CK, CMP #### [address] Monocytes/100 WBC (Bld) 8.9 % Normal . [facility] Comment on above: Performed By: #### A NTIR, RNA POLYMR, HEP C, ANTI TH TO, HBCAB, PM-SCL ABS, U3 HOUSE BUILDER, HBSAG, HBSAB, JOSE #### [facility] , #### CRP, CK, CMP #### [address] Neutrophils (Bld) [#/Vol] 4.2 10*3/uL Normal 1.8-7.7 [facility] Comment on above: Performed By: #### A NTIR, RNA POLYMR, HEP C, ANTI TH TO, HBCAB, PM-SCL ABS, U3 HOUSE BUILDER, HBSAG, HBSAB, JOSE #### [facility] , #### CRP, CK, CMP #### [address] Neutrophils/100 WBC (Bld) 64.4 % Normal . [facility] Comment on above: Performed By: #### A NTIR, RNA POLYMR, HEP C, ANTI TH TO, HBCAB, PM-SCL ABS, U3 HOUSE BUILDER, HBSAG, HBSAB, JOSE #### [facility] , #### CRP, CK, CMP #### [address] Nucleated RBC/100 WBC (Bld) [Ratio] 0.1 % Normal 0-0.5 [facility] Comment on above: Performed By: #### A NTIR, RNA POLYMR, HEP C, ANTI TH TO, HBCAB, PM-SCL ABS, U3 HOUSE BUILDER, HBSAG, HBSAB, JOSE #### [facility] , #### CRP, CK, CMP #### [address] Platelet mean volume (Bld) [Entitic vol] 9.8 fL Normal 6.3-10.7 [facility] Comment on above: Performed By: #### A NTIR, RNA POLYMR, HEP C, ANTI TH TO, HBCAB, PM-SCL ABS, U3 HOUSE BUILDER, HBSAG, HBSAB, JOSE #### [facility] , #### CRP, CK, CMP #### [address] Platelets (Bld) [#/Vol] 206 10*3/uL Normal 150-450 [facility] Comment on above: Performed By: #### A NTIR, RNA POLYMR, HEP C, ANTI TH TO, HBCAB, PM-SCL ABS, U3 HOUSE BUILDER, HBSAG, HBSAB, JOSE #### [facility] , #### CRP, CK, CMP #### [address] RBC (Bld) [#/Vol] 4.33 10*6/uL Normal 3.60-5.00 [facility] Comment on above: Performed By: #### A NTIR, RNA POLYMR, HEP C, ANTI TH TO, HBCAB, PM-SCL ABS, U3 HOUSE BUILDER, HBSAG, HBSAB, JOSE #### [facility] , #### CRP, CK, CMP #### [address] WBC (Bld) [#/Vol] 6.5 10*3/uL Normal 3.8-11.6 [facility] Comment on above: Performed By: #### A NTIR, RNA POLYMR, HEP C, ANTI TH TO, HBCAB, PM-SCL ABS, U3 HOUSE BUILDER, HBSAG, HBSAB, JOSE #### [facility] , #### CRP, CK, CMP #### [address] Comprehensive Metabolic Pane lilian 08-08-2020 Albumin [Mass/Vol] 4.1 g/dL Normal 3.2-5.5 [facility] Comment on above: Performed By: #### A NTIR, RNA POLYMR, HEP C, ANTI TH TO, HBCAB, PM-SCL ABS, U3 HOUSE BUILDER, HBSAG, HBSAB, JOSE #### [facility] , #### CRP, CK, CMP #### [address] Albumin/Globulin [Mass ratio] 1.9 {ratio} Normal [facility] Comment on above: Performed By: #### A NTIR, RNA POLYMR, HEP C, ANTI TH TO, HBCAB, PM-SCL ABS, U3 HOUSE BUILDER, HBSAG, HBSAB, JOSE #### [facility] , #### CRP, CK, CMP #### [facility] [address] [place] [address] ALP [Catalytic activity/Vol] 81 U/L Normal 32-92 [facility] Comment on above: Performed By: #### A NTIR, RNA POLYMR, HEP C, ANTI TH TO, HBCAB, PM-SCL ABS, U3 HOUSE BUILDER, HBSAG, HBSAB, JOSE #### [facility] , #### CRP, CK, CMP #### [address] ALT [Catalytic activity/Vol] 35 U/L Normal 10-60 [facility] Comment on above: Performed By: #### A NTIR, RNA POLYMR, HEP C, ANTI TH TO, HBCAB, PM-SCL ABS, U3 HOUSE BUILDER, HBSAG, HBSAB, JOSE #### [facility] , #### CRP, CK, CMP #### [address] AST [Catalytic activity/Vol] 25 U/L Normal 10-42 [facility] Comment on above: Performed By: #### A NTIR, RNA POLYMR, HEP C, ANTI TH TO, HBCAB, PM-SCL ABS, U3 HOUSE BUILDER, HBSAG, HBSAB, JOSE #### [facility] , #### CRP, CK, CMP #### [address] Bilirubin [Mass/Vol] 0.4 mg/dL Normal 0.3-1.2 [facility] Comment on above: Performed By: #### A NTIR, RNA POLYMR, HEP C, ANTI TH TO, HBCAB, PM-SCL ABS, U3 HOUSE BUILDER, HBSAG, HBSAB, JOSE #### [facility] , #### CRP, CK, CMP #### [address] Calcium [Mass/Vol] 9.2 mg/dL Normal 8.2-10.2 [facility] Comment on above: Performed By: #### A NTIR, RNA POLYMR, HEP C, ANTI TH TO, HBCAB, PM-SCL ABS, U3 HOUSE BUILDER, HBSAG, HBSAB, JOSE #### [facility] , #### CRP, CK, CMP #### [address] Chloride [Moles/Vol] 106 mmol/L Normal 95-114 [facility] Comment on above: Performed By: #### A NTIR, RNA POLYMR, HEP C, ANTI TH TO, HBCAB, PM-SCL ABS, U3 HOUSE BUILDER, HBSAG, HBSAB, JOSE #### [facility] , #### CRP, CK, CMP #### [address] CO2 [Moles/Vol] 28.1 mmol/L Normal 22.0-30.0 [facility] Comment on above: Performed By: #### A NTIR, RNA POLYMR, HEP C, ANTI TH TO, HBCAB, PM-SCL ABS, U3 HOUSE BUILDER, HBSAG, HBSAB, JOSE #### [facility] , #### CRP, CK, CMP #### [address] Creatinine [Mass/Vol] 0.64 mg/dL Normal 0.44-1.03 [facility] Comment on above: Performed By: #### A NTIR, RNA POLYMR, HEP C, ANTI TH TO, HBCAB, PM-SCL ABS, U3 HOUSE BUILDER, HBSAG, HBSAB, JOSE #### [facility] , #### CRP, CK, CMP #### [address] Estimated GFR ( Trai > 60 [facility] Comment on above: Result Comment: GFR estimated reference range: According to KDOQI guidelines, <60 ml/min/1.73m2 is sufficient to diagnose a patient with chronic kidney disease. Performed By: #### A NTIR, RNA POLYMR, HEP C, ANTI TH TO, HBCAB, PM-SCL ABS, U3 HOUSE BUILDER, HBSAG, HBSAB, JOSE #### [facility] , #### CRP, CK, CMP #### [address] Estimated GFR (Non- Am > 60 [facility] Comment on above: Performed By: #### A NTIR, RNA POLYMR, HEP C, ANTI TH TO, HBCAB, PM-SCL ABS, U3 HOUSE BUILDER, HBSAG, HBSAB, JOSE #### [facility] , #### CRP, CK, CMP #### [address] Globulin (S) [Mass/Vol] 2.2 g/dL Normal [facility] Comment on above: Performed By: #### A NTIR, RNA POLYMR, HEP C, ANTI TH TO, HBCAB, PM-SCL ABS, U3 HOUSE BUILDER, HBSAG, HBSAB, JOSE #### [facility] , #### CRP, CK, CMP #### [address] Glucose [Mass/Vol] 87 mg/dL Normal 70-100 [facility] Comment on above: Result Comment: [facility] Glucose Reference Range is dependent on time and content of last meal. Glucose of more than 200 mg/dL in a nonstressed, ambulatory subject supports the diagnosis of Diabetes Mellitus. ADA recommended reference range Performed By: #### A NTIR, RNA POLYMR, HEP C, ANTI TH TO, HBCAB, PM-SCL ABS, U3 HOUSE BUILDER, HBSAG, HBSAB, JOSE #### [facility] , #### CRP, CK, CMP #### [address] Potassium [Moles/Vol] 4.5 mmol/L Normal 3.5-5.1 [facility] Comment on above: Performed By: #### A NTIR, RNA POLYMR, HEP C, ANTI TH TO, HBCAB, PM-SCL ABS, U3 HOUSE BUILDER, HBSAG, HBSAB, JOSE #### [facility] , #### CRP, CK, CMP #### [address] Protein [Mass/Vol] 6.3 g/dL Normal 6.1-7.9 [facility] Comment on above: Performed By: #### A NTIR, RNA POLYMR, HEP C, ANTI TH TO, HBCAB, PM-SCL ABS, U3 HOUSE BUILDER, HBSAG, HBSAB, JOSE #### [facility] , #### CRP, CK, CMP #### [address] Sodium [Moles/Vol] 143 mmol/L Normal 136-146 [facility] Comment on above: Performed By: #### A NTIR, RNA POLYMR, HEP C, ANTI TH TO, HBCAB, PM-SCL ABS, U3 HOUSE BUILDER, HBSAG, HBSAB, JOSE #### [facility] , #### CRP, CK, CMP #### [address] Urea nitrogen [Mass/Vol] 11 mg/dL Normal 9-23 [facility] Comment on above: Performed By: #### A NTIR, RNA POLYMR, HEP C, ANTI TH TO, HBCAB, PM-SCL ABS, U3 HOUSE BUILDER, HBSAG, HBSAB, JOSE #### [facility] , #### CRP, CK, CMP #### [address] Creatine Kinaseon 08-08-2020 CK [Catalytic activity/Vol] 39 U/L Normal 22-269 [facility] Comment on above: Result Comment: PERF ORMED BY: [place] [address] PATHOLOGIST TICKER MAINTAINER BEAU JOHNSON M.D. Performed By: #### A NTIR, RNA POLYMR, HEP C, ANTI TH TO, HBCAB, PM-SCL ABS, U3 HOUSE BUILDER, HBSAG, HBSAB, JOSE #### [facility] , #### CRP, CK, CMP #### [address] Erythrocyte Sedimentation Ra byron 08-08-2020 ESR (Bld) [Velocity] 4 mm/h Normal 0-29 [facility] Comment on above: Result Comment: PERF ORMED BY: [place] [address] PATHOLOGIST TICKER MAINTAINER BEAU JOHNSON M.D. Performed By: #### A NTIR, RNA POLYMR, HEP C, ANTI TH TO, HBCAB, PM-SCL ABS, U3 HOUSE BUILDER, HBSAG, HBSAB, JOSE #### [facility] , #### CRP, CK, CMP #### [address] Hep C Ab w Verificationon HCV AB <0.1 Normal 0.0-0.9 [facility] Comment on above: Order Comment: Speci men Comment: Test(s) 830904-Igru-W7 HOUSE BUILDER (Fibrillarin)(RDL) Specimen Comment: was developed and its performance characteristics Specimen Comment: determined by [facility]. It has not been cleared or approved Specimen Comment: by the Food and Drug Administration. Specimen Comment: Test(s) 976750-Pggp-SF/Scl-75 Ab (RDL) Specimen Comment: was developed and its performance characteristics Specimen Comment: determined by [facility]. It has not been cleared or approved Specimen Comment: by the Food and Drug Administration. Performed By: #### A NTIR, RNA POLYMR, HEP C, ANTI TH TO, HBCAB, PM-SCL ABS, U3 HOUSE BUILDER, HBSAG, HBSAB, JOSE #### [facility] , #### CRP, CK, CMP #### [address] HCV Ab Comment Normal . [facility] Comment on above: Order Comment: Speci men Comment: Test(s) 409153-Knyv-Z5 HOUSE BUILDER (Fibrillarin)(RDL) Specimen Comment: was developed and its performance characteristics Specimen Comment: determined by [facility]. It has not been cleared or approved Specimen Comment: by the Food and Drug Administration. Specimen Comment: Test(s) [id number]-Edrx-AK/Scl-75 Ab (RDL) Specimen Comment: was developed and [...] ANTI TH TO, HBCAB, PM-SCL ABS, U3 HOUSE BUILDER, HBSAG, HBSAB, JOSE #### [facility] , #### CRP, CK, CMP #### [facility] [address] [place] [address] Hepatitis B Core Antibodyon 08-08-2020 Hepatitis B Core Antibody Negative Normal Negative [facility] Comment on above: Order Comment: Speci men Comment: Test(s) [id number]-Igbl-I4 HOUSE BUILDER (Fibrillarin)(RDL) Specimen Comment: was developed and its performance characteristics Specimen Comment: determined by [facility]. It has not been cleared or approved Specimen Comment: by the Food and Drug Administration. Specimen Comment: Test(s) 494273-Ygfu-GQ/Scl-75 Ab (RDL) Specimen Comment: was developed and its performance characteristics Specimen Comment: determined by [facility]. It has not been cleared or approved Specimen Comment: by the Food and Drug Administration. Result Comment: Perf ormed at: [address] [id number] Camera Mechanic: David Pace PhD, Phone: [phone] Performed By: #### A NTIR, RNA POLYMR, HEP C, ANTI TH TO, HBCAB, PM-SCL ABS, U3 HOUSE BUILDER, HBSAG, HBSAB, JOSE #### [facility] , #### CRP, CK, CMP #### [place] [id number] [place] Hepatitis B Surface Antibody on 08-08-2020 Hepatitis B Surface Antibody Non Reactive Normal . [facility] Comment on above: Order Comment: Speci men Comment: Test(s) 561653-Drzd-T3 HOUSE BUILDER (Fibrillarin)(RDL) Specimen Comment: was developed and its performance characteristics Specimen Comment: determined by [facility]. It has not been cleared or approved Specimen Comment: by the Food and Drug Administration. Specimen Comment: Test(s) [id number]-Ducv-MM/Scl-75 Ab (RDL) Specimen Comment: was developed and [...] ANTI TH TO, HBCAB, PM-SCL ABS, U3 HOUSE BUILDER, HBSAG, HBSAB, JOSE #### [facility] , #### CRP, CK, CMP #### [facility] [address] [place] [address] Hepatitis B Surface Antigeno n 08-08-2020 HBsAg Screen Negative Normal Negative [facility] Comment on above: Order Comment: Speci men Comment: Test(s) [id number]-Voib-Z7 HOUSE BUILDER (Fibrillarin)(RDL) Specimen Comment: was developed and its performance characteristics Specimen Comment: determined by [facility]. It has not been cleared or approved Specimen Comment: by the Food and Drug Administration. Specimen Comment: Test(s) 898840-Lufx-SM/Scl-75 Ab (RDL) Specimen Comment: was developed and its performance characteristics Specimen Comment: determined by [facility]. It has not been cleared or approved Specimen Comment: by the Food and Drug Administration. Performed By: #### A NTIR, RNA POLYMR, HEP C, ANTI TH TO, HBCAB, PM-SCL ABS, U3 HOUSE BUILDER, HBSAG, HBSAB, JOSE #### [facility] , #### CRP, CK, CMP #### [facility] [address] [place] [address] [place] PM-SCL Antibodieson 08-08-19 21 JOHN PM-Scl Antibody <20 Normal <20 [facility] Comment on above: Order Comment: Speci men Comment: Test(s) 988147-Aalg-E3 HOUSE BUILDER (Fibrillarin)(RDL) Specimen Comment: was developed and its performance characteristics Specimen Comment: determined by [facility]. It has not been cleared or approved Specimen Comment: by the Food and Drug Administration. Specimen Comment: Test(s) [id number]-Envq-XU/Scl-75 Ab (RDL) Specimen Comment: was developed and its performance characteristics Specimen Comment: determined by [facility]. It has not been cleared or approved Specimen Comment: by the Food and Drug Administration. Result Comment: Nega tive: <20 Weak Positive: 20 - 39 Moderate Positive: 40 - 80 Strong Positive: >80 Performed at: [employer] [address] [place] [id number] Camera Mechanic: Shay Mcnair MD, Phone: [phone] Performed By: #### A NTIR, RNA POLYMR, HEP C, ANTI TH TO, HBCAB, PM-SCL ABS, U3 HOUSE BUILDER, HBSAG, HBSAB, JOSE #### [facility] , #### CRP, CK, CMP #### [facility] [address] [place] [address] RNA Polymerase IIion 021 RNA Polymerase IIi <20 Normal <20 [facility] Comment on above: Order Comment: Speci men Comment: Test(s) [id number]-Tjgz-Xr/To Ab (RDL) Specimen Comment: was developed and its performance characteristics Specimen Comment: determined by [facility]. It has not been cleared or approved Specimen Comment: by the Food and Drug Administration. Result Comment: Nega tive: <20 Weak Positive: 20 - 39 Moderate Positive: 40 - 80 Strong Positive: >80 Performed at: [employer] [address] [place] [id number] Camera Mechanic: Shay Mcnair MD, Phone: [phone] PERFORMED BY: [place] [address] PATHOLOGIST TICKER MAINTAINER BEAU JOHNSON M.D. Performed By: #### A NTIR, RNA POLYMR, HEP C, ANTI TH TO, HBCAB, PM-SCL ABS, U3 HOUSE BUILDER, HBSAG, HBSAB, JOSE #### [facility] , #### CRP, CK, CMP #### [facility] [address] [place] [address] [place] Th/To Antibodyon 08-08-2020 Th/To Antibody Negative Normal Negative [facility] Comment on above: Order Comment: Speci men Comment: Test(s) [id number]-Qrwp-Qs/To Ab (RDL) Specimen Comment: was developed and its performance characteristics Specimen Comment: determined by [facility]. It has not been cleared or approved Specimen Comment: by the Food and Drug Administration. Result Comment: Perf ormed at: [employer] [address] [place], [place] [id number] Camera Mechanic: Shay Mcnair MD, Phone: [phone] Performed By: #### A NTIR, RNA POLYMR, HEP C, ANTI TH TO, HBCAB, PM-SCL ABS, U3 HOUSE BUILDER, HBSAG, HBSAB, JOSE #### [facility] , #### CRP, CK, CMP #### [address] U3 Rnpon 08-08-2020 U3 Revenue Coordinator Negative Normal Negative [facility] Comment on above: Order Comment: Speci men Comment: Test(s) [id number]-Lrdl-F1 HOUSE BUILDER (Fibrillarin)(RDL) Specimen Comment: was developed and its performance characteristics Specimen Comment: determined by [facility]. It has not been cleared or approved Specimen Comment: by the Food and Drug Administration. Specimen Comment: Test(s) [id number]-Txgh-GI/Scl-75 Ab (RDL) Specimen Comment: was developed and its performance characteristics Specimen Comment: determined by [facility]. It has not been cleared or approved Specimen Comment: by the Food and Drug Administration. Result Comment: Perf ormed at: [employer] [facility] [address] [place], [place] [id number] Camera Mechanic: Shay Mcnair MD, Phone: [phone] PERFORMED BY: [place] [address] PATHOLOGIST TICKER MAINTAINER BEAU JOHNSON M.D. Performed By: #### A NTIR, RNA POLYMR, HEP C, ANTI TH TO, HBCAB, PM-SCL ABS, U3 HOUSE BUILDER, HBSAG, HBSAB, JOSE #### [facility] , #### CRP, CK, CMP #### [facility] [address] T4on 08-02-2020 T4, Total 9.9 ug/dL 4.5 - 10.9 ug/dL [place], [place] TSH without Reflexon 021 Interpretation and review of laboratory results Abnormal [place], [place] TSH Qn 5.63 m[IU]/L [place] Vital Signs Date Time Vital Sign Value Performing Clinician Faci lity 01-10-2023 19:11-0400 SaO2% (BldA) [Mass fraction] 92 % Bulmaro Padron MD Work Phone: [facility] 01-10-2023 18:46-0400 Diastolic blood pressure 75 mm[Hg] Bulmaro Padron MD Work Phone: [facility] 01-10-2023 18:46-0400 Systolic blood pressure 166 mm[Hg] Bulmaro Padron MD Work Phone: [facility] 01-10-2023 17:33-0400 Body temperature 97.9 [degF] Bulmaro Padron MD Work Phone: [facility] 01-10-2023 17:33-0400 Heart rate 71 /min Bulmaro Padron MD Work Phone: [facility] 01-10-2023 17:33-0400 Respiratory rate 16 /min Bulmaro Padron MD Work Phone: [facility] Encounters Encounter Date Encounter Type Care Provider Facility Start: 03-23-2024 End: 03-23-2024 ambulatory Akira Vargas MD Facility:[facility] Start: 03-02-2024 End: 03-02-2024 ambulatory Akira Vargas MD Facility:[facility] Start: 05-28-2023 End: 05-29-2023 ambulatory Aayush MENDOZA Facility: [facility] Start: 05-27-2023 ambulatory Aayush MENDOZA Facility:[facility] Start: 04-29-2023 ambulatory Aayush MENDOZA Facility:[facility] Start: 04-02-2023 End: 04-03-2023 ambulatory ARMIDA AGEE [place] Start: 02-01-2023 End: 02-01-2023 Subsequent hospital visit by physician Bulmaro Padron MD Work Phone: [facility] Laboratory Comment on above: Nocturia; Frequency of urination; Urge incontinence Start: 02-01-2023 End: 02-04-2023 ambulatory GABBIE WHITE [facility] Start: 01-10-2023 Emergency department patient visit BULMARO M [facility] Start: 01-10-2023 End: 01-10-2023 Emergency department patient visit Bulmaro Padron MD Work Phone: [facility] ED Comment on above: Right ureteral stone (Primary Dx) Start: 10-09-2022 Emergency department patient visit JORDYN EATON [facility] Start: 06-19-2022 End: 06-20-[address] [...] Subsequent hospital visit [facility] Procedures Date Procedure Procedure Detail Performing Clinician Start: 02-01-2023 Culture bacterial quanttative colony count urine Gabbie White FLOOR ATTENDANT - CUSTOMER SERVICES COORDINATOR Work Phone: Start: 01-10-2023 Ct abdomen & pelvis w/o contrast material Cari Bedmichelekop FLOOR ATTENDANT - CUSTOMER SERVICES COORDINATOR Work Phone: Start: 01-10-2023 Comprehensive metabo lic panel Cari Bedenkop FLOOR ATTENDANT - CUSTOMER SERVICES COORDINATOR Work Phone: Start: 01-10-2023 Urinalysis microscopic only Unknown Provider Result Start: 01-10-2023 Urnls dip stick/tabl et rgnt auto w/o microscopy Cari Britton FLOOR ATTENDANT - CUSTOMER SERVICES COORDINATOR Work Phone: Start: 08-02-2020 Assay of thyroid stimulating hormone tsh Bulmaro Padron Work Phone: Start: 08-02-2020 Assay of thyroxine total Bulmaro Padron Work Phone: Plan of Treatment Date Care Activity Detail Author Start: 01-27-2028 DTaP/Tdap/Td vaccine (2 - Td or Tdap) DTaP/Tdap/Td vaccine (2 - Td or Tdap) [facility] Start: 01-27-2028 DTaP/Tdap/Td vaccine (2 - Td) DTaP/Tdap/Td vaccine (2 - Td) [place] Start: 02-12-2023 Influenza vaccination B [facility] Start: 03-15-2020 Influenza vaccination Flu vaccine (# 1) [place] Start: 01-04-2019 Annual Wellness Visi t (AWV) Annual Wellness Visit (AWV) [facility] Start: 2012 Screening for malign ant neoplasm of breast Breast cancer screen [facility] [employer] Start: 2012 Screening for malign ant neoplasm of colon Colon cancer screen colonoscopy [place], [place] Start: 2012 Shingles Vaccine (1 of 2) Shingles Vaccine (1 of 2) [facility] [employer] Start: 12-15-2007 Screening for malign ant neoplasm of colon [facility] [employer] Start: 2002 Lipid panel [facility] [employer] Start: 1997 Diabetes screen Diabetes screen [facility] [employer] Start: 1992 Screening for malign ant neoplasm of cervix [facility] [employer] Start: 12-15-1983 Screening for malign ant neoplasm of cervix [facility] [employer] Start: 1980 Hepatitis C screening Hepatitis C sc reen [facility] [employer] Start: 1977 HIV screening HIV screen [facility] Start: 1974 Depression Screen Depression Screen [facility] Start: 06-15-1963 COVID-19 Vaccine (#1) COVID-19 Vacci ne (#1) [facility] Start: 1960 Hepatitis C screening Hepatitis C sc sonny [place], [place] End: 08-02-2020 Free T3 [Mass/Vol] T3, Free Lab Routine Once for 1 Occurrences starting 08/02/2020 until 08/02/2020 [place] Comment on above: Once for 1 Occurrenc es starting 08/02/2020 until 08/02/2020 Free T3 [Mass/Vol] T3, Free Lab Routine 08/02/2020 10:13 AM EST [place] Immunizations Immunization Date Immunization Notes Care Provider Gt doyle 01-26-2018 tetanus toxoid, redu clare diphtheria toxoid, and acellular pertussis vaccine, adsorbed Bulmaro Hoy [facility] Payers Date Payer Category Payer Private Health Insurance 2018 Medicare [id number] 2017 Unknown [id number] 1960 Unknown [id number] 2.16.84 [id number] 1960 Unknown [id number] 2.16.84 [id number] 1962 Unknown [id number] 2.16.84 [id number] 1962 Unknown [id number] 2.16.84 [id number] 1962 Unknown [id number] 2.16.84 [id number] 1962 Unknown [id number] 2.16.84 [id number] 1962 Unknown [id number] 2.16.8 [id number] 1962 Unknown [id number] 2.16.8 [id number] 1962 Unknown [id number] 2.16.8 [id number] 1962 Unknown [id number] 2.16.8 [id number] 1962 Unknown [id number] 2.16.8 [id number] 1960 Unknown [id number] 2.16. [id number] 1960 Unknown [id number] 2.16. [id number] Social History Date Type Detail Facility Start: 07-01-2018 End: 01-11-2023 Tobacco smoking status NHIS Former smoker [place] Start: 07-01-2018 End: 01-11-2023 Tobacco use and exposure Never used [place], [place] Start: 07-01-2018 End: 02-01-2023 Alcohol intake Current non-drinker of alcohol (finding) [place], [place] Start: 1960 Sex Assigned At Not on file [place] History of tobacco use Current smoker [facility] Start: 10-09-2022 History SDOH Alcohol Frequency [address] [facility] Start: 10-09-2022 History SDOH Alcohol Std Drinks [address] [facility] Clinical Note 05-28-2023 Note Date & Type [...] Substance Abuse, 05/28/20 (more content not included)... [facility] Comment on above: Result Comment: Elec tronically [...] cannot be sent through Care Everywhere.Kidney Stone (Dutch)documented in this encounter [facility] Evaluation note Note Date & Type Note Facility Evaluation note Diagnosis Right ureteral stone- Primary Calculus of ureter documented in this encounter [facility] Evaluation note Note Date & Type Note Facility Evaluation note Diagnosis Nocturia Frequency of urination Urinary frequency Urge incontinence documented in this encounter [facility] Advance Directives No Advanced Directives Records FoundDocuments on File Type Date Recorded Patient Glove Operator Expl anation ACP-Advance Directive ACP-Power of Label Coder Summary Purpose Family History No Family History Records FoundNo Family History Records FoundNo Family History Records FoundNo Family History Records FoundNo Family History Records Found Additional Source Comments INFORMATION SOURCE (unrecogn ized section and content) DATE CREATED AUTHOR 08/17/2020 [facility] DATE CREATED AUTHOR AUTHOR'S ORGANIZ ATION 06/23/2022 [facility] DATE CREATED AUTHOR AUTHOR'S ORGANIZ ATION [facility]/05/2023 [facility] DATE CREATED AUTHOR AUTHOR'S ORGANIZ ATION 05/29/2023 [facility] DATE CREATED AUTHOR AUTHOR'S ORGANIZ ATION 04/02/2024 [facility] Reason for Visit (unrecogniz ed [...] Care Teams (unrecognized sec tion and content) Leadlighter Relationship Specialty Start [place] [address] [place] [address] PCP - General Family Medicine 01/26/18 Leadlighter Relationship Specialty Start Date End Date Bulmaro Padron MD [address] [place] [id number] PCP - General Family Medicine 01/26/18 FOR [...] BE BASED ON THE PRIMARY CLINICAL RECORDS. [facility] [employer] [facility]. provides no warranty or guarantee of the accuracy or completeness of information in this document.
--- NOTE | 2024-04-08 11:42 | XR_ITS ---
The [address] [address] Patient Name: JOSÉ LUIS KURTZ MRN: [id number] date: 1960 Sex: F Assigned Patient Location: [facility] Current Patient Location: [facility] Accession/Order Number: [id number] Exam Date: 04/08/2024 11:35 Report Date: 04/10/2024 06:20 At the request of: PEDRO PABLO WETZEL Procedure: XR thoracic spine 2V EXAMINATION: XR thoracic spine 2V HISTORY: Thoracic Spondylosis COMPARISON: No relevant comparison available. FINDINGS: BONES: Slight S-shaped curvature of the thoracic spine. No fracture, spondylolisthesis, bone lesion. DISC SPACES: Mild degenerative disc disease involving multiple midthoracic levels. PARASPINOUS: Negative. No paraspinous abnormality is seen. OTHER: Negative. XR/XR thoracic spine 2V IMPRESSION: 1. Mild curvature and mild degenerative disc disease of thoracic spine. No significant degenerative changes or acute abnormality. Electronically authenticated by: RAFI BAZZI Date: 04/10/2024 06:20
== END 2024-04-08 11:25 | disposition home or self-care (01) ==
LOC: RAD 11:26
PROVIDERS: PCP Family Medicine; Visit Provider Nurse Practitioner
DX: M47.814 Spondylosis without myelopathy or radiculopathy, thoracic region (principal); M51.34 Other intervertebral disc degeneration, thoracic region
CPT/HCPCS: 72070

== ENCOUNTER 2024-04-22 10:59 | Outpatient (OUT) | payer MEDICARE, SELFPAY ==
--- OUTSIDE RECORDS SUMMARY | 2024-04-22 11:04 | XMS_ITS | CCD ---
Author Organization [facility] Care Team Providers Care [place] [employer] Lieutenant Name Role Phone Bulmaro Padron Primary Care Provider DR BULMARO PADRON Admitting Unavailable VITO, DR CHAMBERLAIN Attending Unavailable KARMAY, DR CHAMBERLAIN [...] Unavailable ZIEBER, DR CLAUDY Guzmán Consulting Unavailable VITO, DR CHAMBERLAIN Admitting Unavailable HOKaren, DR CHAMBERLAIN Attending Unavailable HOY, DR CHAMBERLAIN Primary Care Unavailable HOY, DR CHAMBERLAIN Consulting Unavailable ZIEBER, DR CLAUDY Guzmán Consulting Unavailable VITO, DR CHAMBERLAIN Admitting Unavailable HOKaren, DR CHAMBERLAIN Attending Unavailable VITO, DR CHAMBERLAIN Primary Care Unavailable VITO, DR CHAMBERLAIN Consulting Unavailable Bulmaro Padron MD [...] [Bee Stings] Propensity to adverse reactions (disorder) [facility] Repository (1 source) No Known Medication Allergies; Translations: [No Known Medication Allergies] Propensity to adverse reactions (disorder) [facility] Repository Medications Current Medications Medication Drug Class(es) Dates Sig (Normalized) Sig (Original) Acetaminophen / HYDROcodone (1 source) Opioid Agonist Start: 3 This order is for a take home starter pack of medication. Please document Furnish to patient on the SEP. aspirin 81 mg oral tablet (3 sources) [...] DAVILA, Aayush Guzmán Primary Care Physician - Vito DAVILA, Bulmaro Referring Physician - Bulmaro Padron MD This [...] for choosing us for your care. Normal [facility] RAD - CT Reporton 05-23-2023 RAD - CT Report [id number] 0TIFF Normal [facility] Patient Letter FTon 2022 Patient [place] [facility] [place] YAS KURTZ [address] [place] [address] : 1960 Dear Ms. Kurtz, Thank you for choosing [facility] for your healthcare needs. Your consultation appointment with Dr Aayush Mendoza is scheduled for 05/28/23 at 10am. We are located in the [place] [address] building, 2nd floor, [address]. A map is enclosed. Please bring your insurance card, a photo ID, and any co-pay you are responsible for to this first appointment. If you have any questions, please call us at [phone]. We look forward to seeing you soon. Sincerely, [place] [address], [address] [place] [address]. [place] [address] [facility] Consultation Noteon 05-01-20 Consultation Note [id number] 0TIFF Normal [facility] Physician Referralon 023 Physician Referral [id number] 0TIFF Normal [facility] Cult,Urineon 04-03-2023 Cult,Urine Specimen Description .CLEAN CATCH URINE Culture NO SIGNIFICANT GROWTH Report Status FINAL 04/03/2023 [facility] Comment on above: Performed By: #### B C #### [facility] [address] [place], [place] [id number] Saas Architect: Stu Baires MD Trichomonas/Wet Prepon 04-02 Trichomonas/Wet Prep Specimen Description .VAGINA Direct Exam NO YEAST OBSERVED NO TRICHOMONAS SEEN NO CLUE CELLS SEEN Report Status FINAL 04/02/2023 Normal [facility] Comment on above: Performed By: #### W P #### [facility] [address] [place] [address] Saas Architect: Stu Baires MD Cult,Urineon 02-03-2023 Cult,Urine Specimen Description .CLEAN CATCH URINE Culture NO SIGNIFICANT GROWTH Report Status FINAL 02/02/2023 Normal [facility] Comment on above: Performed By: #### U RC #### [facility] [address] [place] [address] Saas Architect: Victor Manuel Be MD [facility] [address] [place] [address] Saas Architect: Stu Baires MD Culture, Urineon 02-02-2023 Microorganism identified Cx Nom (Unsp spec) NO SIGNIFICANT GROWTH [facility] Specimen Description .CLEAN CATCH URINE [facility] CT ABDOMEN PELVIS WO CONTRAS Ton 02-01-2023 [...] Graves MD 02/01/23 Final result Normal [facility] CBC with Auto Differentialon 01-10-2023 Basophils (Bld) [#/Vol] 0.03 10*3/uL [facility] Basophils/100 WBC (Bld) 0 % 0 - 2 % [facility] Eosinophils (Bld) [#/Vol] 0.03 10*3/uL [facility] Eosinophils/100 WBC (Bld) 0 % Low 1 - 4 % [facility] Erythrocyte distribution width (RBC) [Ratio] 12.6 % 11.8 - 14.4 % [facility] Hematocrit (Bld) [Volume fraction] 43.5 % 36.3 - 47.1 % [facility] Hemoglobin (Bld) [Mass/Vol] 14.4 g/dL 11.9 - 15.1 g/dL [facility] Immature granulocytes (Bld) [#/Vol] [facility] Immature granulocytes/100 WBC (Bld) 0 % 0 [facility] Interpretation and review of laboratory results Abnormal [facility] Lymphocytes/100 WBC (Bld) 11 % Low 24 - 43 % [facility] Lymphocytes/100 WBC (Bld) 0.90 % Low [facility] MCH (RBC) [Entitic mass] 31.5 pg 25.2 - 33.5 pg [facility] MCHC (RBC) [Mass/Vol] 33.1 g/dL 28.4 - 34.8 g/dL [facility] MCV (RBC) [Entitic vol] 95.2 fL 82.6 - 102.9 fL [facility] Monocytes/100 WBC (Bld) 5 % 3 - 12 % [facility] Monocytes/100 WBC (Bld) 0.44 % [facility] Neutrophils/100 WBC (Bld) 84 % High 36 - 65 % [facility] Nucleated RBC/100 WBC (Bld) [Ratio] 0.0 % 0.0 per 100 WBC [facility] Platelet mean volume (Bld) [Entitic vol] 10.8 fL 8.1 - 13.5 fL [facility] Platelets (Bld) [#/Vol] 210 10*3/uL [facility] RBC (Bld) [#/Vol] 4.57 10*6/uL 3.95 - 5.1 1 m/uL [facility] Segmented neutrophils/100 WBC (Bld) 7.13 % [facility] WBC other (Bld) [#/Vol] 8.6 [facility] CBC with Diffon 01-10-2023 Abs. Basophil 0.03 k/uL Normal 0.00-0.20 [facility] Comment on above: Performed By: #### C DP, CP #### [address] [place] [id number] Saas Architect: Stu Baires MD Abs.Imm.Granulocyte <0.03 Normal 0.00-0.30 [facility] Comment on above: Performed By: #### C DP, CP #### [address] [place], [place] [address] Saas Architect: Stu Baires MD Abs.Neutrophil (Seg) 7.13 k/uL Normal 1.50-8.10 [facility] Comment on above: Performed By: #### C DP, CP #### [address] [place], [facility]83 Saas Architect: Stu Baires MD Basophils/100 WBC (Bld) 0 % Normal 0-2 [facility] Comment on above: Performed By: #### C DP, CP #### [address] [place], [facility]83 Saas Architect: Stu Baires MD Eosinophils (Bld) [#/Vol] 0.03 10*3/uL Normal 0.00-0.44 [facility] Comment on above: Performed By: #### C DP, CP #### [address] [place] [address] Saas Architect: Stu Baires MD Eosinophils/100 WBC (Bld) 0 % Low 1-4 [facility] Comment on above: Performed By: #### C DP, CP #### [address] [place] [address] Saas Architect: Stu Baires MD Erythrocyte distribution width (RBC) [Ratio] 12.6 % Normal 11.8-14.4 [facility] Comment on above: Performed By: #### C DP, CP #### [address] [place] [address] Saas Architect: Stu Baires MD Hematocrit (Bld) [Volume fraction] 43.5 % Normal 36.3-47.1 [facility] Comment on above: Performed By: #### C DP, CP #### [address] [place] [address] Saas Architect: Stu Baires MD Hemoglobin (Bld) [Mass/Vol] 14.4 g/dL Normal 11.9-15.1 [facility] Comment on above: Performed By: #### C DP, CP #### [address] [place] [address] Saas Architect: Stu Baires MD Immature granulocytes/100 WBC (Bld) 0 % Normal 0 [facility] Comment on above: Performed By: #### C DP, CP #### [address] [place], [facility]83 Saas Architect: Stu Baires MD Lymphocytes (Bld) [#/Vol] 0.90 10*3/uL Low 1.10-3.70 [facility] Comment on above: Performed By: #### C DP, CP #### [address] [place] [id number] Saas Architect: Stu Baires MD Lymphocytes/100 WBC (Bld) 11 % Low 24-43 [facility] Comment on above: Performed By: #### C DP, CP #### [facility] [address] [place], [place] [phone] Saas Architect: Stu Baires MD MCH (RBC) [Entitic mass] 31.5 pg Normal 25.2-33.5 [facility] Comment on above: Performed By: #### C DP, CP #### [facility] [address] [place], [place] [address]83 Saas Architect: Stu Baires MD MCHC (RBC) [Mass/Vol] 33.1 g/dL Normal 28.4-34.8 [facility] Comment on above: Performed By: #### C DP, CP #### [address] [place], [place] [address]183 Saas Architect: Stu Baires MD MCV (RBC) [Entitic vol] 95.2 fL Normal 82.6-102.9 [facility] Comment on above: Performed By: #### C DP, CP #### [address] [place], [place] [address]83 Saas Architect: Stu Baires MD Monocytes (Bld) [#/Vol] 0.44 10*3/uL Normal 0.10-1.20 [facility] Comment on above: Performed By: #### C DP, CP #### [address] [place], [place] [address] Saas Architect: Stu Baires MD Monocytes/100 WBC (Bld) 5 % Normal 3-12 [facility] Comment on above: Performed By: #### C DP, CP #### [facility] [address] [place] [address] [place], [place] [phone] Saas Architect: Stu Baires MD Neutrophil (Seg) 84 % High 36-65 [facility] Comment on above: Performed By: #### C DP, CP #### [facility] [address] [place], [facility]83 Saas Architect: Stu Baires MD NRBC Automated 0.0 per 100 WBC Normal 0.0 [facility] Comment on above: Performed By: #### C DP, CP #### [facility] [address] [place] [address] Saas Architect: Stu Baires MD Platelet mean volume (Bld) [Entitic vol] 10.8 fL Normal 8.1-13.5 [facility] Comment on above: Performed By: #### C DP, CP #### [facility] [address] [place] [address] Saas Architect: Stu Baires MD Platelets (Bld) [#/Vol] 210 10*3/uL Normal 138-453 [facility] Comment on above: Performed By: #### C DEMETRIO, CP #### [facility] [address] [place] [address] Saas Architect: Stu Baires MD RBC (Bld) [#/Vol] 4.57 10*6/uL Normal 3.95-5.11 [facility] Comment on above: Performed By: #### C DP, CP #### [facility] [address] [place] [address] Saas Architect: Stu Baires MD WBC (Bld) [#/Vol] 8.6 10*3/uL Normal 3.5-11.3 [facility] Comment on above: Performed By: #### C DP, CP #### [facility] [address] [place] [address] Saas Architect: Stu Baires MD [facility] Albumin [Mass/Vol] 4.3 g/dL 3.5 - 5.2 g/dL [facility] Albumin/Globulin [Mass ratio] 1.4 {ratio} 1.0 - 2.5 [facility] ALP [Catalytic activity/Vol] 97 U/L 35 - 104 U/L [facility] ALT [Catalytic activity/Vol] 29 U/L 5 - 33 U/L [facility] Anion gap [Moles/Vol] 8 mmol/L Low 9 - 17 mmol/L [facility] AST [Catalytic activity/Vol] 25 U/L NINF - 32 U/L [facility] Bilirubin [Mass/Vol] 0.3 mg/dL 0.3 - 1.2 mg/dL [facility] Calcium [Mass/Vol] 9.3 mg/dL 8.6 - 10. 4 mg/dL [facility] Chloride [Moles/Vol] 105 mmol/L 98 - 107 mmol/L [facility] CO2 [Moles/Vol] 25 mmol/L 20 - 31 mmol/L [facility] Creatinine [Mass/Vol] 0.51 mg/dL 0.50 - 0.90 mg/dL [facility] GFR/1.73 sq M.predicted MDRD (S/P/Bld) [Vol rate/Area] - PINF [facility] Comment on above: These results [...] 140 mg/dL High 70 - 99 mg/dL [facility] Interpretation and review of laboratory results Abnormal [facility] Potassium [Moles/Vol] 4.3 mmol/L 3.7 - 5.3 mmol/L [facility] Protein [Mass/Vol] 7.4 g/dL 6.4 - 8.3 g/dL [facility] Sodium [Moles/Vol] 138 mmol/L 135 - 144 mmol/L [facility] Urea nitrogen [Mass/Vol] 13 mg/dL 8 - 23 mg/dL [facility] Urea nitrogen/Creatinine [Mass ratio] 25 mg/mg High 9 - [address] [facility] [address] ABDOMEN PELVIS WO CONTRAS Ton 01-10-2023 [...] Armstrong MD 01/10/23 Final result Normal [facility] CT ABDOMEN PELVIS WO CONTRAS T Additional Contrast? Noneon 01-10-2023 1. 2 mm stone at the right ureterovesical junction with mild hydroureteronephrosis. 2. 1.6 cm left adrenal nodule unchanged from 2018 compatible with a benign adenoma. No follow-up recommended. [facility] EXAMINATION: CT OF THE ABDOMEN AND [...] No acute osseous or soft tissue abnormality. [facility] Enrico Armstrong MD - 01/10/2023 EXAMINATION: [...] with a benign adenoma. No follow-up recommended. [facility] Radiology Study observation (narrative) [facility] CT ABDOMEN PELVIS WO CONTRAS T Additional Contrast? NoneOrdered By: Enrico Armstrong on 01-10-2023 [facility] Work Phone: Comp Metabolic Profon 2022 Albumin [Mass/Vol] 4.3 g/dL Normal 3.5-5.2 [facility] Comment on above: Performed By: #### B C #### [facility] [address] [place], [place] [phone] Saas Architect: Stu Baires MD Albumin/Glob Ratio 1.4 Normal 1.0-2.5 [facility] Comment on above: Performed By: #### B C #### [facility] [address] [place], [place] [address] Saas Architect: Stu Baires MD Alkaline Phos 97 U/L Normal 35-104 [facility] Comment on above: Performed By: #### B C #### [facility] [address] [place], [place] [address] Saas Architect: Stu Baires MD ALT [Catalytic activity/Vol] 29 U/L Normal 5-33 [facility] Comment on above: Performed By: #### B C #### [facility] [address] [place], [place] [address]83 Saas Architect: Stu Baires MD Anion gap [Moles/Vol] 8 mmol/L Low 9-17 [facility] Comment on above: Performed By: #### B C #### [facility] [address] [place], [place] [phone] Saas Architect: Stu Baires MD AST [Catalytic activity/Vol] 25 U/L Normal <32 [facility] Comment on above: Performed By: #### B C #### [facility] [address] [place], [place] [address]83 Saas Architect: Stu Baires MD Bilirubin [Mass/Vol] 0.3 mg/dL Normal 0.3-1.2 [facility] Comment on above: Performed By: #### B C #### [facility] [address] [place], [place] [phone] Saas Architect: Stu Baires MD BUN/CRE Ratio 25 High 9-20 [facility] Comment on above: Performed By: #### B C #### [facility] [address] [place], [place] [address] Saas Architect: Stu Baires MD Calcium [Mass/Vol] 9.3 mg/dL Normal 8.6-10.4 [facility] Comment on above: Performed By: #### B C #### [facility] [address] [place] [phone] Saas Architect: Stu Baires MD Chloride [Moles/Vol] 105 mmol/L Normal 98-107 [facility] Comment on above: Performed By: #### B C #### [facility] [address] [place] [phone] Saas Architect: Stu Baires MD CO2 [Moles/Vol] 25 mmol/L Normal 20-31 [facility] Comment on above: Performed By: #### B C #### [facility] [address] [place] [phone] Saas Architect: Stu Baires MD Creatinine [Mass/Vol] 0.51 mg/dL Normal 0.50-0.90 [facility] Comment on above: Performed By: #### B C #### [address] [place], [place] [address] Saas Architect: Stu Baires MD GFR/1.73 sq M.predicted among non-blacks MDRD (S/P/Bld) [Vol rate/Area] mL/min/{1.73_m2} Normal >60 [facility] Comment on above: Result Comment: These results [...] Performed By: #### B C #### [facility] [address] [place] [address] Saas Architect: Stu Baires MD Glucose [Mass/Vol] 140 mg/dL High 70-99 [facility] Comment on above: Performed By: #### B C #### [facility] [address] [place] [address] Saas Architect: Stu Baires MD Potassium [Moles/Vol] 4.3 mmol/L Normal 3.7-5.3 [facility] Comment on above: Performed By: #### B C #### [facility] [address] [place] [address] Saas Architect: Stu Baires MD Protein [Mass/Vol] 7.4 g/dL Normal 6.4-8.3 [facility] Comment on above: Performed By: #### B C #### [facility] [address] [place] [address] [place] [address] Saas Architect: Stu Baires MD Sodium [Moles/Vol] 138 mmol/L Normal 135-144 [facility] Comment on above: Performed By: #### B C #### [address] [place] [address] Saas Architect: Stu Baires MD Urea nitrogen [Mass/Vol] 13 mg/dL Normal 8-23 [facility] Comment on above: Performed By: #### B C #### [facility] [address] [place] [address] Saas Architect: Stu Baires MD Microscopic Urinalysison Bacteria LM Ql (Urine sed) TRACE Abnormal None [facility] Epithelial cells LM.HPF (Urine sed) [#/Area] 0 TO 2 [facility] Interpretation and review of laboratory results Abnormal [facility] RBC LM.HPF (Urine sed) [#/Area] 0 TO 2 [facility] WBC LM.HPF (Urine sed) [#/Area] 10 TO 20 [facility] Urinalysison 01-10-2023 Bilirubin Ql (U) Negative NEGATIVE [facility] Clarity (U) Clear Clear [facility] Color (U) Yellow Yellow [facility] Glucose Test strip (U) [Mass/Vol] Negative NEGATIVE [facility] Hemoglobin Auto test strip Ql (U) Negative NEGATIVE [facility] Interpretation and review of laboratory results Abnormal [facility] Ketones (U) [Mass/Vol] Negative NEGATIVE [facility] Leukocyte esterase Test strip Ql (U) SMALL Abnormal NEGATIVE [facility] Nitrite Ql (U) Negative NEGATIVE [facility] pH (U) 5.5 [pH] 5.0 - 9.0 [facility] Protein (U) [Mass/Vol] Negative NEGATIVE [facility] Specific gravity (U) [Rel density] High 1.010 - 1.020 [facility] Urobilinogen Qn (U) Normal Normal [facility] Urinalysis, Routineon 2022 Bilirubin, SemiQt,Ur Negative Normal NEG [facility] Comment on above: Performed By: #### B C #### [facility] [address] [place] [address] [place] [address] Saas Architect: Stu Baires MD Blood, Urine Negative Normal NEG [facility] Comment on above: Performed By: #### B C #### [facility] [address] [place] [address] Saas Architect: Stu Baires MD Clarity (U) Clear Normal CLEAR [facility] Comment on above: Performed By: #### B C #### [facility] [address] [place] [address] Saas Architect: Stu Baires MD Color (U) Yellow Normal YEL [facility] Comment on above: Performed By: #### B C #### [facility] [address] [place] [address] Saas Architect: Stu Baires MD Glucose Ql (U) Negative Normal NEG [facility] Comment on above: Performed By: #### B C #### [facility] [address] [place] [address] [place], [place] [phone] Saas Architect: Stu Baires MD Ketones Ql (U) Negative Normal NEG [facility] Comment on above: Performed By: #### B C #### [facility] [address] [place] [address] [place], [place] [phone] Saas Architect: Stu Baires MD Leukocyte esterase Test strip Ql (U) SMALL Abnormal NEG [facility] Comment on above: Performed By: #### B C #### [facility] [address] [place] [address] Dr[place], [place] [phone] Saas Architect: Stu Baires MD Nitrite,Ur Negative Normal NEG [facility] Comment on above: Performed By: #### B C #### [facility] [address] [place] [address] [place], [place] [phone] Saas Architect: Stu Baires MD PH,Ur 5.5 Normal 5.0-9.0 [facility] Comment on above: Performed By: #### B C #### [address] [place], [place] [phone] Saas Architect: Stu Baires MD Protein Ql (U) Negative Normal NEG [facility] Comment on above: Performed By: #### B C #### [facility] [address] [place] [address] [place], [place] [phone] Saas Architect: Stu Baires MD Spec. Tyro,Ur >1.030 High 1.010-1.020 [facility] Comment on above: Performed By: #### B C #### [facility] [address] [place] [address] [place], [place] 1423983 Saas Architect: Stu Baires MD Urobilinogen,Ur Normal Normal NORM [facility] Comment on above: Performed By: #### B C #### [facility] [address] [place], [place] [phone] Saas Architect: Stu Baires MD Urinalysis,Microon 3 Bacteria TRACE Abnormal NONE [facility] Comment on above: Performed By: #### B C #### [facility] [address] [place], [place] [phone] Saas Architect: Stu Baires MD Epithelial cells LM Ql (Urine sed) 0 TO 2 Normal 0-25 [facility] Comment on above: Performed By: #### B C #### [facility] [address] [place], [place] 284[address]83 Saas Architect: Sut Baires MD Urine RBC's 0 TO 2 Normal 0-2 [facility] Comment on above: Performed By: #### B C #### [facility] [address] [place], [place] [address]88[address] Saas Architect: Stu Baires MD Urine WBC's 10 TO 20 Normal 0-5 [facility] Comment on above: Performed By: #### B C #### [address] [place], [place] 588[address]83 Saas Architect: Stu Baires MD Cult, Bloodon 10-14-2022 Cult, Blood Specimen Description .BLOOD Special Requests 10ML LHAND Culture NO GROWTH 5 DAYS Report Status FINAL 10/14/2022 [facility] Comment on above: Performed By: #### B C #### [facility] [address] [place] [address] [place] [address] Saas Architect: Stu Baires MD Cult,Bloodon 10-14-2022 Cult,Blood Specimen Description .BLOOD Special Requests 14ml rfa Culture NO GROWTH 5 DAYS Report Status FINAL 10/14/2022 [facility] Comment on above: Performed By: #### B C #### [facility] [address] [place] [address] Dr[place], [place] [address] Saas Architect: Stu Baires MD CBC with Diffon 10-09-2022 Abs. Basophil 0.03 k/uL Normal 0.00-0.20 [facility] Comment on above: Performed By: #### C P, CDP #### [address] [place] [place] [address] Saas Architect: Stu Baires MD Abs.Imm.Granulocyte <0.03 Normal 0.00-0.30 [facility] Comment on above: Performed By: #### C P, CDP #### [address] [place], [place] [address] Saas Architect: Stu Baires MD Abs.Neutrophil (Seg) 2.53 k/uL Normal 1.50-8.10 [facility] Comment on above: Performed By: #### C P, CDP #### [address] [place], [place] [address] Saas Architect: Stu Baires MD Basophils/100 WBC (Bld) 1 % Normal 0-2 [facility] Comment on above: Performed By: #### C P, CDP #### [address] [place], [place] [address] Saas Architect: Stu Baires MD Eosinophils (Bld) [#/Vol] 0.06 10*3/uL Normal 0.00-0.44 [facility] Comment on above: Performed By: #### C P, CDP #### [address] [place], [facility]83 Saas Architect: Stu Baires MD Eosinophils/100 WBC (Bld) 2 % Normal 1-4 [facility] Comment on above: Performed By: #### C P, CDP #### [address] [place], [facility]83 Saas Architect: Stu Baires MD Erythrocyte distribution width (RBC) [Ratio] 13.0 % Normal 11.8-14.4 [facility] Comment on above: Performed By: #### C P, CDP #### [address] [place], [facility]83 Saas Architect: Stu Baires MD Hematocrit (Bld) [Volume fraction] 38.9 % Normal 36.3-47.1 [facility] Comment on above: Performed By: #### C P, CDP #### [address] [place], [facility]83 Saas Architect: Stu Baires MD Hemoglobin (Bld) [Mass/Vol] 13.2 g/dL Normal 11.9-15.1 [facility] Comment on above: Performed By: #### C P, CDP #### [address] [place], [facility]83 Saas Architect: Stu Baries MD Immature granulocytes/100 WBC (Bld) 1 % High 0 [facility] Comment on above: Performed By: #### C P, CDP #### [address] [place], [place] [address] Saas Architect: Stu Baires MD Lymphocytes (Bld) [#/Vol] 0.71 10*3/uL Low 1.10-3.70 [facility] Comment on above: Performed By: #### C P, CDP #### [address] [place], [facility]83 Saas Architect: Stu Baires MD Lymphocytes/100 WBC (Bld) 18 % Low 24-43 [facility] Comment on above: Performed By: #### C P, CDP #### [address] [place], [facility]83 Saas Architect: Stu Baires MD MCH (RBC) [Entitic mass] 32.0 pg Normal 25.2-33.5 [facility] Comment on above: Performed By: #### C P, CDP #### [facility] [address] [place] [address] Saas Architect: Stu Baires MD MCHC (RBC) [Mass/Vol] 33.9 g/dL Normal 28.4-34.8 [facility] Comment on above: Performed By: #### C P, CDP #### [facility] [address] [place], [place] [address] Saas Architect: Stu Baires MD MCV (RBC) [Entitic vol] 94.2 fL Normal 82.6-102.9 [facility] Comment on above: Performed By: #### C P, CDP #### [address] [place], [facility]83 Saas Architect: Stu Baires MD Monocytes (Bld) [#/Vol] 0.56 10*3/uL Normal 0.10-1.20 [facility] Comment on above: Performed By: #### C P, CDP #### [address] [place], [facility]83 Saas Architect: Stu Baires MD Monocytes/100 WBC (Bld) 14 % High 3-12 [facility] Comment on above: Performed By: #### C P, CDP #### [facility] [address] [place], [place] [address] Saas Architect: Stu Baires MD Neutrophil (Seg) 64 % Normal 36-65 [facility] Comment on above: Performed By: #### C P, CDP #### [facility] [address] [place], [facility]83 Saas Architect: Stu Baires MD NRBC Automated 0.0 per 100 WBC Normal 0.0 [facility] Comment on above: Performed By: #### C P, CDP #### [facility] [address] [place], [facility]83 Saas Architect: Stu Baires MD Platelet mean volume (Bld) [Entitic vol] 11.1 fL Normal 8.1-13.5 [facility] Comment on above: Performed By: #### C P, CDP #### [facility] [address] [place], [place] [id number] Saas Architect: Stu Baires MD Platelets (Bld) [#/Vol] 221 10*3/uL Normal 138-453 [facility] Comment on above: Performed By: #### C P, CDP #### [facility] [address] [place], [place] [id number] Saas Architect: Stu Baires MD RBC (Bld) [#/Vol] 4.13 10*6/uL Normal 3.95-5.11 [facility] Comment on above: Performed By: #### C P, CDP #### [facility] [address] [place], [place] 7608083 Saas Architect: Stu Baires MD WBC (Bld) [#/Vol] 3.9 10*3/uL Normal 3.5-11.3 [facility] Comment on above: Performed By: #### C P, CDP #### [facility] [address] [place], [place] [id number] Saas Architect: Stu Baires MD Comp Metabolic Profon 2022 Albumin [Mass/Vol] 3.4 g/dL Low 3.5-5.2 [facility] Comment on above: Performed By: #### C P, CDP #### [facility] [address] [place] [address] Saas Architect: Stu Baires MD Albumin/Glob Ratio 1.2 Normal 1.0-2.5 [facility] Comment on above: Performed By: #### C P, CDP #### [facility] [address] [place] [address] Saas Architect: Stu Baires MD Alkaline Phos 108 U/L High 35-104 [facility] Comment on above: Performed By: #### C P, CDP #### [facility] [address] [place], [place] 2979783 Saas Architect: Stu Baires MD ALT [Catalytic activity/Vol] 30 U/L Normal 5-33 [facility] Comment on above: Performed By: #### C P, CDP #### [facility] [address] [place], [place] 3184283 Saas Architect: Stu Baires MD Anion gap [Moles/Vol] 8 mmol/L Low 9-17 [facility] Comment on above: Performed By: #### C P, CDP #### [address] [place], [place] [phone] Saas Architect: Stu Baires MD AST [Catalytic activity/Vol] 29 U/L Normal <32 [facility] Comment on above: Performed By: #### C P, CDP #### [address] [place], [place] 4674383 Saas Architect: Stu Baires MD Bilirubin [Mass/Vol] 0.5 mg/dL Normal 0.3-1.2 [facility] Comment on above: Performed By: #### C P, CDP #### [facility] [address] [place] [address] Dr. [place], [place] 8185783 Saas Architect: Stu Baires MD BUN/CRE Ratio 18 Normal 9-20 [facility] Comment on above: Performed By: #### C P, CDP #### [facility] [address] [place] [address] Dr. [place], [place] 0980083 Saas Architect: Stu Baires MD Calcium [Mass/Vol] 8.4 mg/dL Low 8.6-10.4 [facility] Comment on above: Performed By: #### C P, CDP #### [facility] [address] [place] [address] Dr. [place], [place] [phone] Saas Architect: Stu Baires MD Chloride [Moles/Vol] 105 mmol/L Normal 98-107 [facility] Comment on above: Performed By: #### C P, CDP #### [facility] [address] [place], [place] [phone] Saas Architect: Stu Baires MD CO2 [Moles/Vol] 23 mmol/L Normal 20-31 [facility] Comment on above: Performed By: #### C P, CDP #### [facility] [address] [place] [phone] Saas Architect: Stu Baires MD Creatinine [Mass/Vol] 0.49 mg/dL Low 0.50-0.90 [facility] Comment on above: Performed By: #### C P, CDP #### [facility] [address] [place] [address] Saas Architect: Stu Baires MD GFR/1.73 sq M.predicted among non-blacks MDRD (S/P/Bld) [Vol rate/Area] mL/min/{1.73_m2} Normal >60 [facility] Comment on above: Result Comment: These results [...] Performed By: #### C P, CDP #### [facility] [address] [place] [address] Saas Architect: Stu Baires MD Glucose [Mass/Vol] 102 mg/dL High 70-99 [facility] Comment on above: Performed By: #### C P, CDP #### [facility] [address] [place] [phone] Saas Architect: Stu Baires MD Potassium [Moles/Vol] 3.6 mmol/L Low 3.7-5.3 [facility] Comment on above: Performed By: #### C P, CDP #### [facility] [address] [place] [address] Dr. [place], [place] 4481083 Saas Architect: Stu Baires MD Protein [Mass/Vol] 6.2 g/dL Low 6.4-8.3 [facility] Comment on above: Performed By: #### C P, CDP #### [facility] [address] [place] [address] Dr. [place], [place] 1423383 Saas Architect: Stu Baires MD Sodium [Moles/Vol] 136 mmol/L Normal 135-144 [facility] Comment on above: Performed By: #### C P, CDP #### [facility] [address] [place] [address] Dr. [place], [place] 5843883 Saas Architect: Stu Baires MD Urea nitrogen [Mass/Vol] 9 mg/dL Normal 6-20 [facility] Comment on above: Performed By: #### C P, CDP #### [address] [place], [place] 6377983 Saas Architect: Stu Baires MD Lactic Acidon 1 Lactate [Moles/Vol] 1.0 mmol/L Normal 0.5-2.2 [facility] Comment on above: Performed By: #### L ACTIC #### [facility] [address] [place] [address] Dr. [place], [place] 9573483 Saas Architect: Stu Baires MD Urinalysis, Routineon 2022 Bilirubin, SemiQt,Ur Negative Normal NEG [facility] Comment on above: Performed By: #### U MICAO, UA #### [facility] [address] [place] [address] Dr. [place], [place] [phone] Saas Architect: Stu Baires MD Blood, Urine Negative Normal NEG [facility] Comment on above: Performed By: #### U MICAO, UA #### [facility] [address] [place], [place] 5198083 Saas Architect: Stu Baires MD Clarity (U) Clear Normal CLEAR [facility] Comment on above: Performed By: #### U MICAO, UA #### [facility] [address] [place], [place] 1552683 Saas Architect: Stu Baires MD Color (U) Yellow Normal YEL [facility] Comment on above: Performed By: #### U MICAO, UA #### [facility] [address] [place] [address] Dr. [place], [place] 0770583 Saas Architect: Stu Baires MD Glucose Ql (U) Negative Normal NEG [facility] Comment on above: Performed By: #### U MICAO, UA #### [facility] [address] [place] [address] Dr. [place], [place] 2544683 Saas Architect: Stu Baires MD Ketones Ql (U) Negative Normal NEG [facility] Comment on above: Performed By: #### U MICAO, UA #### [address] [place], [place] 5207983 Saas Architect: Stu Baires MD Leukocyte esterase Test strip Ql (U) TRACE Abnormal NEG [facility] Comment on above: Performed By: #### U MICAO, UA #### [facility] [address] [place] [address] Dr. [place], [place] 1127383 Saas Architect: Stu Baires MD Nitrite,Ur Negative Normal NEG [facility] Comment on above: Performed By: #### U MICAO, UA #### [facility] [address] [place] [address] Dr. [place], [place] 4294783 Saas Architect: Stu Baires MD PH,Ur 6.0 Normal 5.0-9.0 [facility] Comment on above: Performed By: #### U MICAO, UA #### [facility] [address] [place], [place] 1264183 Saas Architect: Stu Baires MD Protein Ql (U) 1+ Abnormal NEG [facility] Comment on above: Performed By: #### U MICAO, UA #### [facility] [address] [place], [place] 8594783 Saas Architect: Stu Baires MD Spec. Tyro,Ur >1.030 High 1.010-1.020 [facility] Comment on above: Performed By: #### U TISHAO, UA #### [facility] [address] [place] [address] Dr. [place], [place] [phone] Saas Architect: Stu Baires MD Urobilinogen,Ur Normal Normal NORM [facility] Comment on above: Performed By: #### U TISHAO, UA #### [facility] [address] [place] [address] Dr. [place], [place] [phone] Saas Architect: Stu Baires MD Urinalysis,Microon 3 Bacteria 2+ Abnormal NONE [facility] Comment on above: Performed By: #### U TISHAO, UA #### [facility] [address] [place] [address] Dr. [place], [place] 0387083 Saas Architect: Stu Baires MD Epithelial cells LM Ql (Urine sed) 2 TO 5 Normal 0-25 [facility] Comment on above: Performed By: #### U MICAO, UA #### [facility] [address] [place], [place] 1803983 Saas Architect: Stu Baires MD Mucus Strands 1+ Abnormal NONE [facility] Comment on above: Performed By: #### U MICAO, UA #### [facility] [address] [place], [place] 8091883 Saas Architect: Stu Baires MD Urine RBC's None Normal 0-2 [facility] Comment on above: Performed By: #### U MICAO, UA #### [facility] [address] [place], [place] 7193583 Saas Architect: Stu Baires MD Urine WBC's 2 TO 5 Normal 0-5 [facility] Comment on above: Performed By: #### U TISHAO, UA #### [facility] [address] [place] [address] Saas Architect: Stu Baires MD FREE T3on 06-19-2022 FREE T3 4.07 pg/mlL Critically high 2.18-3.98 [facility] Comment on above: Performed By: #### T 4, FT3, TSH ####[facility] [address] [place] [address]Dr. Vicenta Bryant T4on 06-19-2022 T4 [Mass/Vol] 7.70 ug/dL Normal 4.80-13.90 [facility] Comment on above: Performed By: #### T 4, FT3, TSH ####[facility] [address] [place] [address]Dr. Vicenta Bryant TSHon 06-19-2022 TSH 4.022 uIU/mL Critically high 0.358-3.740 [facility] Comment on above: Performed By: #### T 4, FT3, TSH ####[facility] [address] [place] [address]Dr. Vicenta Bryant FREE T3on 05-23-2022 FREE T3 3.87 pg/mlL Normal 2.18-3.98 [facility] Comment on above: Performed By: #### T SH, FT3, T4 #### [facility] [address] [place] [address] [address] Vicenta Bryant T4on 05-23-2022 T4 [Mass/Vol] 7.00 ug/dL Normal 4.80-13.90 [facility] Comment on above: Performed By: #### T SH, FT3, T4 #### [facility] [address] [place] [address] [address] Vicenta Bryant TSHon 05-23-2022 TSH 4.402 uIU/mL Critically high 0.358-3.740 [facility] Comment on above: Performed By: #### T SH, FT3, T4 #### [facility] [address] [place], [place] [address] Dr. Vicenta Bryant MG MAMM DX FLAQUITA 3D FU CADon 0 03-28-2022 MG MAMM DX FLAQUITA 3D FU CAD Patient: YAS KURTZ Exam Date: 03/28/2022 : 1960 Gender:F Ordering : DR BULMARO PADRON . Admission #: [id number] Family : Order #: [id number] CLICK HERE TO VIEW EXAM RADIOLOGY REPORT [...] lung cancer at age 57. LOCATION: [facility] BREAST COMPOSITION: Almost entirely fatty. [...] Cobian M.D. on 03/28/2022 at 11:35 Normal [facility] OCC BLD IMMUNO SCREENon 03-15 OCCULT BLOOD Negative Normal NEGATIVE [facility] Comment on above: Performed By: #### O BSCRN #### [facility] [address] [place], [place] [address] Dr. Vicenta Bryant INSULINon 03-07-2022 Insulin 10.8 uIU/mL Normal 2.6-24.9 [facility] Comment on above: Performed By: #### I NSULIN #### [facility] [address] [place], [place] [address] Dr. Vicenta Bryant T4, T3U, FTI [facility]on 03-07 Free Thyroxine Index 1.9 Normal 1.2-4.9 [facility] Comment on above: Performed By: #### T HYLC ####[facility] [address] [place], [place] [address]ThPablo Bryant T3 Uptake 25 % Normal 24-39 [facility] Comment on above: Performed By: #### T HYLC ####[facility] [address] [place], [place] [address]XrDr. Vicenta Bryant T4 [Mass/Vol] 7.6 ug/dL Normal 4.5-12.0 [facility] Comment on above: Performed By: #### T HYLC ####[facility] [address] [place], [place] [address]RaDr. Vicenta Bryant VIT D 25-OH [facility] 2021 Vitamin D, 25-Hydroxy 24.3 ng/mL Critically low 30.0-100.0 [facility] Comment on above: Result Comment: Susi min D deficiency has been defined by the [place] of [employer] and an Endocrine Society practice guideline as a level of serum 25-OH vitamin D less than 20 ng/mL (1,2). The Endocrine Society went on to further define vitamin D insufficiency as a level between 21 and 29 ng/mL (2). 1. IOM ([place] of [employer]). 2010. Dietary reference intakes for calcium and D. [place]: The National Academies Press. 2. Dea MF, Angelika NC, Shawn SHEARER, et al. Evaluation, treatment, and prevention of vitamin D deficiency: an Endocrine Society clinical practice guideline. JCEM. 2010; 96(7):1911-30. Performed By: #### V ITADLC ####[facility] [address] [place] [id number]. Vicenta Bryant CBC AUTO DIFFon 03-06-2022 BASO # 0.0 103/ul Normal 0.0-0.1 [facility] Comment on above: Performed By: #### C BC #### [facility] [address] [place] [address] Dr. Vicenta Bryant Basophils/100 WBC (Bld) 0.6 % Normal 0.2-2.0 [facility] Comment on above: Performed By: #### C BC #### [facility] [address] [place] [address] Dr. Vicenta Bryant EO # 0.1 103/ul Normal 0.0-0.7 [facility] Comment on above: Performed By: #### C BC #### [facility] [address] [place] [address] Dr. Vicenta Bryant Eosinophils/100 WBC (Bld) 1.1 % Normal 0.9-7.0 [facility] Comment on above: Performed By: #### C BC #### [facility] [address] [place] [address] Dr. Vicenta Bryant Erythrocyte distribution width (RBC) [Ratio] 12.6 % Normal 11.0-15.0 [facility] Comment on above: Performed By: #### C BC #### [facility] [address] [place] [address] Dr. Vicenta Bryant Hematocrit (Bld) [Volume fraction] 41.1 % Normal 36.0-48.0 [facility] Comment on above: Performed By: #### C BC #### [facility] [address] [place] [address] Dr. Vicenta Bryant Hemoglobin (Bld) [Mass/Vol] 13.4 g/dL Normal 12.0-16.0 [facility] Comment on above: Performed By: #### C BC #### [facility] [address] [place] [address] Dr. Vicenta Bryant IG # 0.01 10e3/ul Normal 0.00-0.03 [facility] Comment on above: Performed By: #### C BC #### [facility] [address] [place] [address] Dr. Vicenta Bryant IG % 0.2 % Normal 0.0-0.5 [facility] Comment on above: Performed By: #### C BC #### [facility] [address] [place] [address] Dr. Vicenta Bryant LYMPH # 1.6 103/ul Normal 1.2-3.8 [facility] Comment on above: Performed By: #### C BC #### [facility] [address] [place] [address] Dr. Vicenta Bryant Lymphocytes/100 WBC (Bld) 25.6 % Normal 20.5-60.0 [facility] Comment on above: Performed By: #### C BC #### [facility] [address] [place] [address] Dr. Vicenat Bryant MANUAL DIFF REQ NO Normal [facility] Comment on above: Performed By: #### C BC #### [facility] [address] [place] [address] Dr. Vicenta Bryant MCH (RBC) [Entitic mass] 31.0 pg Normal 26.7-34.0 [facility] Comment on above: Performed By: #### C BC #### [facility] [address] [place] [address] Dr. Vicenta Bryant MCHC (RBC) [Mass/Vol] 32.6 g/dL Normal 29.9-35.2 [facility] Comment on above: Performed By: #### C BC #### [facility] [address] [place] [address] Dr. Vicenta Bryant MCV (RBC) [Entitic vol] 95.1 fL Normal 81.0-99.0 [facility] Comment on above: Performed By: #### C BC #### [facility] [address] [place] [address] Dr. Vicenta Bryant MONO # 0.5 103/ul Normal 0.3-0.8 [facility] Comment on above: Performed By: #### C BC #### [facility] [address] [place] [address] Dr. Vicenta Bryant Monocytes/100 WBC (Bld) 7.8 % Normal 1.7-12.0 [facility] Comment on above: Performed By: #### C BC #### [facility] [address] [place] [address] Dr. Vicenta Bryant NEUT # 4.0 103/ul Normal 1.4-6.5 [facility] Comment on above: Performed By: #### C BC #### [facility] [address] [place] [address] Dr. Vicenta Bryant Neutrophils/100 WBC (Bld) 64.7 % Normal 43.0-75.0 [facility] Comment on above: Performed By: #### C BC #### [facility] [address] [place] [address] Dr. Vicenta Bryant Platelet mean volume (Bld) [Entitic vol] 10.8 fL Normal 9.5-13.5 [facility] Comment on above: Performed By: #### C BC #### [facility] [address] [place] [address] Dr. Vicenta Bryant PLT 210 103/ul Normal 150-450 [facility] Comment on above: Performed By: #### C BC #### [facility] [address] [place] [address] Dr. Vicenta Bryant RBC 4.32 106/ul Normal 4.20-5.40 [facility] Comment on above: Performed By: #### C BC #### [facility] [address] [place] [address] Dr. Vicenta Bryant WBC 6.2 103/ul Normal 4.0-11.0 [facility] Comment on above: Performed By: #### C BC #### [facility] [address] [place] [address] Dr. Vicenta Bryant GLYCOHEMOGLOBIN A1Con 2021 ADA RECOMMENDATION SEE BELOW Normal [facility] Comment on above: Result Comment: ADA RECOMMENDED LIMIT 4.0 - 6.0 ADA THERAPEUTIC TARGET < 7.0 ACTION SUGGESTED > 7.0 Performed By: #### A 1C #### [facility] [address] [place] [address] Dr. Vicenta Bryant Glucose [Mass/Vol] 91 mg/dL Normal [facility] Comment on above: Performed By: #### A 1C #### [facility] [address] [place], [place] [address] Dr. Vicenta Bryant HbA1c (Bld) [Mass fraction] 4.8 % Normal 4.5-6.2 [facility] Comment on above: Performed By: #### A 1C #### [facility] [address] [place], [place] [address] Dr. Vicenta Bryant IRONon 03-06-2022 Iron [Mass/Vol] 73.0 ug/dL Normal 50.0-170.0 [facility] Comment on above: Performed By: #### B 12FOL, IRON ####[facility] [address] [place], [place] [address]QsPablo Bryant LIPID PROFILEon 03-06-2022 CHOL-HDL RATIO NORM SEE BELOW Normal [facility] Comment on above: Result Comment: 3.3 - 4.4 LOW RISK 4.4 - 7.1 AVERAGE RISK 7.1 - 11.0 MODERATE RISK >11.0 HIGH RISK Performed By: #### L IPID, TSH, CMP ####[facility] [address] [place], [place] [address]Zv. Vicenta Bryant Cholesterol [Mass/Vol] 134 mg/dL Normal <=200 [facility] Comment on above: Performed By: #### L IPID, TSH, CMP ####[facility] [address] [place], [place] [address]KvPablo Bryant Cholesterol in HDL [Mass/Vol] 41 mg/dL Normal 40-60 [facility] Comment on above: Performed By: #### L IPID, TSH, CMP ####[facility] [address] [place], [place] [address]SwPablo Bryant Cholesterol in LDL [Mass/Vol] 81.2 mg/dL Normal [facility] Comment on above: Performed By: #### L IPID, TSH, CMP ####[facility] [address] [place], [place] [address]Qx. Vicenta Bryant Cholesterol.total/C holesterol in HDL [Mass ratio] 3.3 {ratio} Normal [facility] Comment on above: Performed By: #### L IPID, TSH, CMP ####[facility] [address] [place] [address]Dr. Vicenta Bryant HDL NORMAL > or = 60 mg/dl - LO W CARDIOVASCULAR RISK <40 mg/dl - HIGH CARDIOVASCULAR RISK Normal [facility] Comment on above: Performed By: #### L IPID, TSH, CMP ####[facility] [address] [place] [address]Dr. Vicenta Bryant LDL CALC NORMAL SEE BELOW Normal [facility] Comment on above: Result Comment: <100 mg/dl OPTIMAL 100 - 129 mg/dl NEAR OR ABOVE OPTIMAL 130 - 159 mg/dl BORDERLINE HIGH 160 - 189 mg/dl HIGH >190 mg/dl VERY HIGH Performed By: #### L IPID, TSH, CMP ####[facility] [address] [place] [address]Dr. Vicenta Bryant Triglyceride [Mass/Vol] 59 mg/dL Normal <=150 [facility] Comment on above: Performed By: #### L IPID, TSH, CMP ####[facility] [address] [place], [place] [address]Dr. Vicenta Bryant VLDL CALC 11.8 mg/dL Normal [facility] Comment on above: Performed By: #### L IPID, TSH, CMP ####[facility] [address] [place] [address]Dr. Vicenta Bryant PROF 14(COMP METB)on 022 Albumin [Mass/Vol] 3.7 g/dL Normal 3.4-5.0 [facility] Comment on above: Performed By: #### L IPID, TSH, CMP ####[facility] [address] [place] [address]Dr. Vicenta Bryant Albumin/Globulin [Mass ratio] 1.1 {ratio} Normal [facility] Comment on above: Performed By: #### L IPID, TSH, CMP ####[facility] [address] [place] [address]Dr. Vicenta Bryant ALP [Catalytic activity/Vol] 115 U/L Normal 46-116 [facility] Comment on above: Performed By: #### L IPID, TSH, CMP ####[facility] [address] [place] [address]Dr. Vicenta Bryant ALT [Catalytic activity/Vol] 38 U/L Normal 14-59 [facility] Comment on above: Performed By: #### L IPID, TSH, CMP ####[facility] [address] [place], [place] [address]Dr. Vicenta Bryant Anion gap [Moles/Vol] 12.4 mmol/L Normal [facility] Comment on above: Performed By: #### L IPID, TSH, CMP ####[facility] [address] [place], [place] [address]Dr. Vicenta Bryant AST [Catalytic activity/Vol] 27 U/L Normal 15-37 [facility] Comment on above: Performed By: #### L IPID, TSH, CMP ####[facility] [address] [place], [place] [address]Dr. Vicenta Bryant Bilirubin [Mass/Vol] 0.3 mg/dL Normal 0.2-1.0 [facility] Comment on above: Performed By: #### L IPID, TSH, CMP ####[facility] [address] [place], [place] [address]Dr. Vicenta Bryant Calcium [Mass/Vol] 8.9 mg/dL Normal 8.5-10.1 [facility] Comment on above: Performed By: #### L IPID, TSH, CMP ####[facility] [address] [place], [place] [address]Dr. Vicenta Bryant Chloride [Moles/Vol] 104 mmol/L Normal 98-107 [facility] Comment on above: Performed By: #### L IPID, TSH, CMP ####[facility] [address] [place], [place] [address]Dr. Vicenta Bryant CO2 [Moles/Vol] 27.8 mmol/L Normal 21.0-32.0 [facility] Comment on above: Performed By: #### L IPID, TSH, CMP ####[facility] [address] [place] [id number]. Vicenta Bryant Creatinine [Mass/Vol] 0.53 mg/dL Critically low 0.55-1.02 [facility] Comment on above: Performed By: #### L IPID, TSH, CMP ####[facility] [address] [place] [id number]. Vicenta Bryant EGFR-AF STATELESS >60 Normal >=60 [facility] Comment on above: Performed By: #### L IPID, TSH, CMP ####[facility] [address] [place] [address]Dr. Vicenta Bryant EGFR-NON AF STATELESS >60 Normal >=60 [facility] Comment on above: Performed By: #### L IPID, TSH, CMP ####[facility] [address] [place] [address]Dr. Vicenta Manny Globulin (S) [Mass/Vol] 3.3 g/dL Normal [facility] Comment on above: Performed By: #### L IPID, TSH, CMP ####[facility] [address] [place] [address]Dr. Vicenta Bryant Glucose [Mass/Vol] 88 mg/dL Normal 74-106 [facility] Comment on above: Performed By: #### L IPID, TSH, CMP ####[facility] [address] [place], [place] [address]Dr. Vicenta Bryant Potassium [Moles/Vol] 4.4 mmol/L Normal 3.5-5.1 [facility] Comment on above: Performed By: #### L IPID, TSH, CMP ####[facility] [address] [place], [place] [id number]. Vicenta Bryant Protein [Mass/Vol] 7.0 g/dL Normal 6.4-8.2 [facility] Comment on above: Performed By: #### L IPID, TSH, CMP ####[facility] [address] [place] [id number]. Vicenta Bryant Sodium [Moles/Vol] 139 mmol/L Normal 136-145 [facility] Comment on above: Performed By: #### L IPID, TSH, CMP ####[facility] [address] [place] [phone]. Vicenta Bryant Urea nitrogen [Mass/Vol] 10.0 mg/dL Normal 7.0-18.0 [facility] Comment on above: Performed By: #### L IPID, TSH, CMP ####[facility] [address] [place] [id number]. Jocydawn Manny Urea nitrogen/Creatinine [Mass ratio] 18.8 mg/mg Normal [facility] Comment on above: Performed By: #### L IPID, TSH, CMP ####[facility] [address] [place] [address]Dr. Vicenta Manny TSHon 03-06-2022 TSH 4.364 uIU/mL Critically high 0.358-3.740 [facility] Comment on above: Performed By: #### L IPID, TSH, CMP ####[facility] [address] [place] [id number]. Vicenta Bryant VIT B12 AND FOLATEon 022 Cobalamin (Vitamin B12) [Mass/Vol] 761.0 pg/mL Normal 193.0-986.0 [facility] Comment on above: Performed By: #### B 12FOL, IRON ####[facility] [address]tr[address] [place] [id number]. Vicenta Manny FOLATE 15.40 ng/mL Normal 8.60-58.90 [facility] Comment on above: Performed By: #### B 12FOL, IRON ####[facility] [address] [place] [phone]. Vicenta Manny MAMMO POST BIOPSY LEFTon MAMMO POST BIOPSY LEFT Patient: YAS KURTZ Exam Date: 07/25/2021 : 1960 Gender:F Ordering : DR BULMARO PADRON . Admission #: [id number] Family : Order #: [id number] CLICK HERE TO VIEW EXAM This report [...] Cobian M.D. on 08/03/2021 at 07:08 Normal [facility] US VAC ASST BX BRST LT W CLI Aryan 07-25-2021 US VAC ASST BX BRST LT W CLIP Patient: YAS KURTZ Exam Date: 07/25/2021 : 1960 Gender:F Ordering : DR BULMARO PADRON . Admission #: [id number] Family : Order #: [id number] CLICK HERE TO VIEW EXAM This report [...] Normal [facility] MAMM LT DIAG W CADon 01-0 MG MAMM LT DIAG W CAD Patient: YAS KURTZ Exam Date: 07/20/2021 : 1960 Gender:F Ordering : DR BULMARO PADRON . Admission #: [id number] Family : Order #: [id number] CLICK HERE TO VIEW EXAM RADIOLOGY REPORT [...] lung cancer at age 57. LOCATION: [facility] BREAST COMPOSITION: Almost entirely fatty. [...] M.D. on 07/20/2021 at 15:20 Normal [facility] US BREAST LEFT LIMITEDon US BREAST LEFT LIMITED Patient: YAS KURTZ Exam Date: 07/20/2021 : 1960 Gender:F Ordering : DR BULMARO PADRON . Admission #: [id number] Family : Order #: [id number] CLICK HERE TO VIEW EXAM RADIOLOGY REPORT [...] lung cancer at age 57. LOCATION: [facility] BREAST COMPOSITION: Almost entirely fatty. [...] Cobian M.D. on 07/20/2021 at 15:20 Normal [facility] JOSE Antinuclear Antibodieson 08-08-2020 JOSE IFA Note 1 Normal . [facility] Comment on above: Order Comment: Speci men Comment: Test(s) 147935-Nvzw-G3 WIRE TECHNICIAN (Fibrillarin)(RDL) Specimen Comment: was developed and its performance characteristics Specimen Comment: determined by [facility]. It has not been cleared or approved Specimen Comment: by the Food and Drug Administration. Specimen Comment: Test(s) 196558-Wxao-JQ/Scl-75 Ab (RDL) Specimen Comment: was developed and [...] titers Nucleosomes, Histones Drug-induced SLE Speckled Sm, WIRE TECHNICIAN, SCL-70, SLE,MCTD,PSS (diffuse form), SS-A/SS-B Sjogrens Nucleolar SCL-70, PM-1/SCL High titers Scleroderma, PM/DM Centromere Centromere PSS (limited form) w/Crest syndrome variable Nuclear Dot Sp100,s16-ascbxg Primary Biliary Cirrhosis Nuclear GP210, Primary Biliary Cirrhosis Membrane rosi A,B,C Performed at: [facility] [address] [id number] [place] Architect: David Pace PhD, Phone: [phone] Performed By: #### A NTIR, RNA POLYMR, HEP C, ANTI TH TO, HBCAB, PM-SCL ABS, U3 WIRE TECHNICIAN, HBSAG, HBSAB, JOSE #### [facility] , #### CRP, CK, CMP #### [address] Antinuclear Abs, IFA Positive Critically abnormal . [facility] Comment on above: Order Comment: Speci men Comment: Test(s) 390340-Uxmg-P9 WIRE TECHNICIAN (Fibrillarin)(RDL) Specimen Comment: was developed and its performance characteristics Specimen Comment: determined by [facility]. It has not been cleared or approved Specimen Comment: by the Food and Drug Administration. Specimen Comment: Test(s) 808923-Jptq-HU/Scl-75 Ab (RDL) Specimen Comment: was developed and its performance characteristics Specimen Comment: determined by [facility]. It has not been cleared or approved Specimen Comment: by the Food and Drug Administration. Result Comment: Nega tive <1:80 Borderline 1:80 Positive >1:80 Performed By: #### A NTIR, RNA POLYMR, HEP C, ANTI TH TO, HBCAB, PM-SCL ABS, U3 WIRE TECHNICIAN, HBSAG, HBSAB, JOSE #### [facility] , #### CRP, CK, CMP #### [facility] [address] Speckled Pattern 1:640 High . [facility] Comment on above: Order Comment: Speci men Comment: Test(s) 231506-Ggax-X6 WIRE TECHNICIAN (Fibrillarin)(RDL) Specimen Comment: was developed and its performance characteristics Specimen Comment: determined by [facility]. It has not been cleared or approved Specimen Comment: by the Food and Drug Administration. Specimen Comment: Test(s) 779146-Guev-RB/Scl-75 Ab (RDL) Specimen Comment: was developed and its performance characteristics Specimen Comment: determined by [facility]. It has not been cleared or approved Specimen Comment: by the Food and Drug Administration. Performed By: #### A NTIR, RNA POLYMR, HEP C, ANTI TH TO, HBCAB, PM-SCL ABS, U3 WIRE TECHNICIAN, HBSAG, HBSAB, JOSE #### [facility] , #### CRP, CK, CMP #### [facility] [address] [place] [address] [place] Anti-RNPon 08-08-2020 Anti-WIRE TECHNICIAN <0.2 Normal 0.0-0.9 [facility] Comment on above: Order Comment: Speci men Comment: Test(s) 174179-Mtlq-E2 WIRE TECHNICIAN (Fibrillarin)(RDL) Specimen Comment: was developed and its performance characteristics Specimen Comment: determined by [facility]. It has not been cleared or approved Specimen Comment: by the Food and Drug Administration. Specimen Comment: Test(s) 753241-Zjgu-PG/Scl-75 Ab (RDL) Specimen Comment: was developed and its performance characteristics Specimen Comment: determined by [facility]. It has not been cleared or approved Specimen Comment: by the Food and Drug Administration. Result Comment: Perf ormed at: - [facility] [address] [id number] [place] Architect: David Pace PhD, Phone: [phone] Performed By: #### A NTIR, RNA POLYMR, HEP C, ANTI TH TO, HBCAB, PM-SCL ABS, U3 WIRE TECHNICIAN, HBSAG, HBSAB, JOSE #### [facility] , #### CRP, CK, CMP #### [address] C-Reactive Proteinon 021 CRP [Mass/Vol] 0.6 mg/dL Normal 0.0-1.0 [facility] Comment on above: Result Comment: PERF ORMED BY: [place] [address] PATHOLOGIST RESIDENTIAL LEASING AGENT BEAU JOHNSON M.D. Performed By: #### A NTIR, RNA POLYMR, HEP C, ANTI TH TO, HBCAB, PM-SCL ABS, U3 WIRE TECHNICIAN, HBSAG, HBSAB, JOSE #### [facility] , #### CRP, CK, CMP #### [address] Complement C3on 08-08-2020 Complement C3 125 mg/dL Normal 82-167 [facility] Comment on above: Result Comment: Perf ormed at: - [facility] [address] [id number] [place] Architect: David Pace PhD, Phone: [phone] Performed By: #### A NTIR, RNA POLYMR, HEP C, ANTI TH TO, HBCAB, PM-SCL ABS, U3 WIRE TECHNICIAN, HBSAG, HBSAB, JOSE #### [facility] , #### CRP, CK, CMP #### [address] Complement C4on 08-08-2020 Complement C4 17 mg/dL Normal 12-38 [facility] Comment on above: Performed By: #### A NTIR, RNA POLYMR, HEP C, ANTI TH TO, HBCAB, PM-SCL ABS, U3 WIRE TECHNICIAN, HBSAG, HBSAB, JOSE #### [facility] , #### CRP, CK, CMP #### [address] Complement Total (CH50)on Complement Total (CH50) >60 Normal >41 [facility] Comment on above: Result Comment: Age [...] determine out of range values. Performed at: [facility] [address] [id number] [place] Architect: David Pace PhD, Phone: [phone] PERFORMED BY: [place] [address] PATHOLOGIST RESIDENTIAL LEASING AGENT BEAU JOHNSON M.D. Performed By: #### A NTIR, RNA POLYMR, HEP C, ANTI TH TO, HBCAB, PM-SCL ABS, U3 WIRE TECHNICIAN, HBSAG, HBSAB, JOSE #### [facility] , #### CRP, CK, CMP #### [address] Complete Blood Count Auto Di ffon 08-08-2020 Basophils (Bld) [#/Vol] 0.0 10*3/uL Normal 0.0-0.2 [facility] Comment on above: Performed By: #### A NTIR, RNA POLYMR, HEP C, ANTI TH TO, HBCAB, PM-SCL ABS, U3 WIRE TECHNICIAN, HBSAG, HBSAB, JOSE #### [facility] , #### CRP, CK, CMP #### [address] Basophils/100 WBC (Bld) 0.4 % Normal . [facility] Comment on above: Performed By: #### A NTIR, RNA POLYMR, HEP C, ANTI TH TO, HBCAB, PM-SCL ABS, U3 WIRE TECHNICIAN, HBSAG, HBSAB, JOSE #### [facility] , #### CRP, CK, CMP #### [address] Eosinophils (Bld) [#/Vol] 0.0 10*3/uL Normal 0.0-0.45 [facility] Comment on above: Performed By: #### A NTIR, RNA POLYMR, HEP C, ANTI TH TO, HBCAB, PM-SCL ABS, U3 WIRE TECHNICIAN, HBSAG, HBSAB, JOSE #### [facility] , #### CRP, CK, CMP #### [address] Eosinophils/100 WBC (Bld) 0.6 % Normal . [facility] Comment on above: Performed By: #### A NTIR, RNA POLYMR, HEP C, ANTI TH TO, HBCAB, PM-SCL ABS, U3 WIRE TECHNICIAN, HBSAG, HBSAB, JOSE #### [facility] , #### CRP, CK, CMP #### [address] Erythrocyte distribution width (RBC) [Ratio] 12.7 % Normal 11.9-15.3 [facility] Comment on above: Performed By: #### A NTIR, RNA POLYMR, HEP C, ANTI TH TO, HBCAB, PM-SCL ABS, U3 WIRE TECHNICIAN, HBSAG, HBSAB, JOSE #### [facility] , #### CRP, CK, CMP #### [address] Hematocrit (Bld) [Volume fraction] 40.9 % Normal 34.0-46.4 [facility] Comment on above: Performed By: #### A NTIR, RNA POLYMR, HEP C, ANTI TH TO, HBCAB, PM-SCL ABS, U3 WIRE TECHNICIAN, HBSAG, HBSAB, JOSE #### [facility] , #### CRP, CK, CMP #### [address] Hemoglobin (Bld) [Mass/Vol] 13.5 g/dL Normal 11.8-15.4 [facility] Comment on above: Performed By: #### A NTIR, RNA POLYMR, HEP C, ANTI TH TO, HBCAB, PM-SCL ABS, U3 WIRE TECHNICIAN, HBSAG, HBSAB, JOSE #### [facility] , #### CRP, CK, CMP #### [address] Lymphocytes (Bld) [#/Vol] 1.7 10*3/uL Normal 1.00-4.8 [facility] Comment on above: Performed By: #### A NTIR, RNA POLYMR, HEP C, ANTI TH TO, HBCAB, PM-SCL ABS, U3 WIRE TECHNICIAN, HBSAG, HBSAB, JOSE #### [facility] , #### CRP, CK, CMP #### [address] Lymphocytes/100 WBC (Bld) 25.7 % Normal . [facility] Comment on above: Performed By: #### A NTIR, RNA POLYMR, HEP C, ANTI TH TO, HBCAB, PM-SCL ABS, U3 WIRE TECHNICIAN, HBSAG, HBSAB, JOSE #### [facility] , #### CRP, CK, CMP #### [address] MCH (RBC) [Entitic mass] 32.9 g/dL Normal 32.0-35.0 [facility] Comment on above: Performed By: #### A NTIR, RNA POLYMR, HEP C, ANTI TH TO, HBCAB, PM-SCL ABS, U3 WIRE TECHNICIAN, HBSAG, HBSAB, JOSE #### [facility] , #### CRP, CK, CMP #### [address] MCH (RBC) [Entitic mass] 31.1 pg Normal 24.7-34.3 [facility] Comment on above: Performed By: #### A NTIR, RNA POLYMR, HEP C, ANTI TH TO, HBCAB, PM-SCL ABS, U3 WIRE TECHNICIAN, HBSAG, HBSAB, JOSE #### [facility] , #### CRP, CK, CMP #### [address] MCV (RBC) [Entitic vol] 94.4 fL Normal 80-100 [facility] Comment on above: Performed By: #### A NTIR, RNA POLYMR, HEP C, ANTI TH TO, HBCAB, PM-SCL ABS, U3 WIRE TECHNICIAN, HBSAG, HBSAB, JOSE #### [facility] , #### CRP, CK, CMP #### [address] Monocytes (Bld) [#/Vol] 0.6 10*3/uL Normal 0.0-0.8 [facility] Comment on above: Performed By: #### A NTIR, RNA POLYMR, HEP C, ANTI TH TO, HBCAB, PM-SCL ABS, U3 WIRE TECHNICIAN, HBSAG, HBSAB, JOSE #### [facility] , #### CRP, CK, CMP #### [address] Monocytes/100 WBC (Bld) 8.9 % Normal . [facility] Comment on above: Performed By: #### A NTIR, RNA POLYMR, HEP C, ANTI TH TO, HBCAB, PM-SCL ABS, U3 WIRE TECHNICIAN, HBSAG, HBSAB, JOSE #### [facility] , #### CRP, CK, CMP #### [place] [address] [place] Neutrophils (Bld) [#/Vol] 4.2 10*3/uL Normal 1.8-7.7 [facility] Comment on above: Performed By: #### A NTIR, RNA POLYMR, HEP C, ANTI TH TO, HBCAB, PM-SCL ABS, U3 WIRE TECHNICIAN, HBSAG, HBSAB, JOSE #### [facility] , #### CRP, CK, CMP #### [address] Neutrophils/100 WBC (Bld) 64.4 % Normal . [facility] Comment on above: Performed By: #### A NTIR, RNA POLYMR, HEP C, ANTI TH TO, HBCAB, PM-SCL ABS, U3 WIRE TECHNICIAN, HBSAG, HBSAB, JOSE #### [facility] , #### CRP, CK, CMP #### [address] Nucleated RBC/100 WBC (Bld) [Ratio] 0.1 % Normal 0-0.5 [facility] Comment on above: Performed By: #### A NTIR, RNA POLYMR, HEP C, ANTI TH TO, HBCAB, PM-SCL ABS, U3 WIRE TECHNICIAN, HBSAG, HBSAB, JOSE #### [facility] , #### CRP, CK, CMP #### [address] Platelet mean volume (Bld) [Entitic vol] 9.8 fL Normal 6.3-10.7 [facility] Comment on above: Performed By: #### A NTIR, RNA POLYMR, HEP C, ANTI TH TO, HBCAB, PM-SCL ABS, U3 WIRE TECHNICIAN, HBSAG, HBSAB, JOSE #### [facility] , #### CRP, CK, CMP #### [address] Platelets (Bld) [#/Vol] 206 10*3/uL Normal 150-450 [facility] Comment on above: Performed By: #### A NTIR, RNA POLYMR, HEP C, ANTI TH TO, HBCAB, PM-SCL ABS, U3 WIRE TECHNICIAN, HBSAG, HBSAB, JOSE #### [facility] , #### CRP, CK, CMP #### [address] RBC (Bld) [#/Vol] 4.33 10*6/uL Normal 3.60-5.00 [facility] Comment on above: Performed By: #### A NTIR, RNA POLYMR, HEP C, ANTI TH TO, HBCAB, PM-SCL ABS, U3 WIRE TECHNICIAN, HBSAG, HBSAB, JOSE #### [facility] , #### CRP, CK, CMP #### [address] WBC (Bld) [#/Vol] 6.5 10*3/uL Normal 3.8-11.6 [facility] Comment on above: Performed By: #### A NTIR, RNA POLYMR, HEP C, ANTI TH TO, HBCAB, PM-SCL ABS, U3 WIRE TECHNICIAN, HBSAG, HBSAB, JOSE #### [facility] , #### CRP, CK, CMP #### [address] Comprehensive Metabolic Pane lilian 08-08-2020 Albumin [Mass/Vol] 4.1 g/dL Normal 3.2-5.5 [facility] Comment on above: Performed By: #### A NTIR, RNA POLYMR, HEP C, ANTI TH TO, HBCAB, PM-SCL ABS, U3 WIRE TECHNICIAN, HBSAG, HBSAB, JOSE #### [facility] , #### CRP, CK, CMP #### [address] Albumin/Globulin [Mass ratio] 1.9 {ratio} Normal [facility] Comment on above: Performed By: #### A NTIR, RNA POLYMR, HEP C, ANTI TH TO, HBCAB, PM-SCL ABS, U3 WIRE TECHNICIAN, HBSAG, HBSAB, JOSE #### [facility] , #### CRP, CK, CMP #### [address] ALP [Catalytic activity/Vol] 81 U/L Normal 32-92 [facility] Comment on above: Performed By: #### A NTIR, RNA POLYMR, HEP C, ANTI TH TO, HBCAB, PM-SCL ABS, U3 WIRE TECHNICIAN, HBSAG, HBSAB, JOSE #### [facility] , #### CRP, CK, CMP #### [address] ALT [Catalytic activity/Vol] 35 U/L Normal 10-60 [facility] Comment on above: Performed By: #### A NTIR, RNA POLYMR, HEP C, ANTI TH TO, HBCAB, PM-SCL ABS, U3 WIRE TECHNICIAN, HBSAG, HBSAB, JOSE #### [facility] , #### CRP, CK, CMP #### [address] AST [Catalytic activity/Vol] 25 U/L Normal 10-42 [facility] Comment on above: Performed By: #### A NTIR, RNA POLYMR, HEP C, ANTI TH TO, HBCAB, PM-SCL ABS, U3 WIRE TECHNICIAN, HBSAG, HBSAB, JOSE #### [facility] , #### CRP, CK, CMP #### [address] Bilirubin [Mass/Vol] 0.4 mg/dL Normal 0.3-1.2 [facility] Comment on above: Performed By: #### A NTIR, RNA POLYMR, HEP C, ANTI TH TO, HBCAB, PM-SCL ABS, U3 WIRE TECHNICIAN, HBSAG, HBSAB, JOSE #### [facility] , #### CRP, CK, CMP #### [address] Calcium [Mass/Vol] 9.2 mg/dL Normal 8.2-10.2 [facility] Comment on above: Performed By: #### A NTIR, RNA POLYMR, HEP C, ANTI TH TO, HBCAB, PM-SCL ABS, U3 WIRE TECHNICIAN, HBSAG, HBSAB, JOSE #### [facility] , #### CRP, CK, CMP #### [address] Chloride [Moles/Vol] 106 mmol/L Normal 95-114 [facility] Comment on above: Performed By: #### A NTIR, RNA POLYMR, HEP C, ANTI TH TO, HBCAB, PM-SCL ABS, U3 WIRE TECHNICIAN, HBSAG, HBSAB, JOSE #### [facility] , #### CRP, CK, CMP #### [address] CO2 [Moles/Vol] 28.1 mmol/L Normal 22.0-30.0 [facility] Comment on above: Performed By: #### A NTIR, RNA POLYMR, HEP C, ANTI TH TO, HBCAB, PM-SCL ABS, U3 WIRE TECHNICIAN, HBSAG, HBSAB, JOSE #### [facility] , #### CRP, CK, CMP #### [address] Creatinine [Mass/Vol] 0.64 mg/dL Normal 0.44-1.03 [facility] Comment on above: Performed By: #### A NTIR, RNA POLYMR, HEP C, ANTI TH TO, HBCAB, PM-SCL ABS, U3 WIRE TECHNICIAN, HBSAG, HBSAB, JOSE #### [facility] , #### CRP, CK, CMP #### [address] Estimated GFR ( Tari > 60 Normal [facility] Comment on above: Result Comment: GFR estimated reference range: According to KDOQI guidelines, <60 ml/min/1.73m2 is sufficient to diagnose a patient with chronic kidney disease. Performed By: #### A NTIR, RNA POLYMR, HEP C, ANTI TH TO, HBCAB, PM-SCL ABS, U3 WIRE TECHNICIAN, HBSAG, HBSAB, JOSE #### [facility] , #### CRP, CK, CMP #### [address] Estimated GFR (Non- Am > 60 Normal [facility] Comment on above: Performed By: #### A NTIR, RNA POLYMR, HEP C, ANTI TH TO, HBCAB, PM-SCL ABS, U3 WIRE TECHNICIAN, HBSAG, HBSAB, JOSE #### [facility] , #### CRP, CK, CMP #### [address] Globulin (S) [Mass/Vol] 2.2 g/dL Normal [facility] Comment on above: Performed By: #### A NTIR, RNA POLYMR, HEP C, ANTI TH TO, HBCAB, PM-SCL ABS, U3 WIRE TECHNICIAN, HBSAG, HBSAB, JOSE #### [facility] , #### CRP, CK, CMP #### [address] Glucose [Mass/Vol] 87 mg/dL Normal 70-100 [facility] Comment on above: Result Comment: [facility] Glucose Reference Range is dependent on time and content of last meal. Glucose of more than 200 mg/dL in a nonstressed, ambulatory subject supports the diagnosis of Diabetes Mellitus. ADA recommended reference range Performed By: #### A NTIR, RNA POLYMR, HEP C, ANTI TH TO, HBCAB, PM-SCL ABS, U3 WIRE TECHNICIAN, HBSAG, HBSAB, JOSE #### [facility] , #### CRP, CK, CMP #### [address] Potassium [Moles/Vol] 4.5 mmol/L Normal 3.5-5.1 [facility] Comment on above: Performed By: #### A NTIR, RNA POLYMR, HEP C, ANTI TH TO, HBCAB, PM-SCL ABS, U3 WIRE TECHNICIAN, HBSAG, HBSAB, JOSE #### [facility] , #### CRP, CK, CMP #### [address] Protein [Mass/Vol] 6.3 g/dL Normal 6.1-7.9 [facility] Comment on above: Performed By: #### A NTIR, RNA POLYMR, HEP C, ANTI TH TO, HBCAB, PM-SCL ABS, U3 WIRE TECHNICIAN, HBSAG, HBSAB, JOSE #### [facility] , #### CRP, CK, CMP #### [address] Sodium [Moles/Vol] 143 mmol/L Normal 136-146 [facility] Comment on above: Performed By: #### A NTIR, RNA POLYMR, HEP C, ANTI TH TO, HBCAB, PM-SCL ABS, U3 WIRE TECHNICIAN, HBSAG, HBSAB, JOSE #### [facility] , #### CRP, CK, CMP #### [address] Urea nitrogen [Mass/Vol] 11 mg/dL Normal 9-23 [facility] Comment on above: Performed By: #### A NTIR, RNA POLYMR, HEP C, ANTI TH TO, HBCAB, PM-SCL ABS, U3 WIRE TECHNICIAN, HBSAG, HBSAB, JOSE #### [facility] , #### CRP, CK, CMP #### [address] Creatine Kinaseon 08-08-2020 CK [Catalytic activity/Vol] 39 U/L Normal 22-269 [facility] Comment on above: Result Comment: PERF ORMED BY: [place] [address] PATHOLOGIST RESIDENTIAL LEASING AGENT BEAU JOHNSON M.D. Performed By: #### A NTIR, RNA POLYMR, HEP C, ANTI TH TO, HBCAB, PM-SCL ABS, U3 WIRE TECHNICIAN, HBSAG, HBSAB, JOSE #### [facility] , #### CRP, CK, CMP #### [address] Erythrocyte Sedimentation Ra byron 08-08-2020 ESR (Bld) [Velocity] 4 mm/h Normal 0-29 [facility] Comment on above: Result Comment: PERF ORMED BY: [place] [address] PATHOLOGIST RESIDENTIAL LEASING AGENT BEAU JOHNSON M.D. Performed By: #### A NTIR, RNA POLYMR, HEP C, ANTI TH TO, HBCAB, PM-SCL ABS, U3 WIRE TECHNICIAN, HBSAG, HBSAB, JOSE #### [facility] , #### CRP, CK, CMP #### [address] Hep C Ab w Verificationon HCV AB <0.1 Normal 0.0-0.9 [facility] Comment on above: Order Comment: Speci men Comment: Test(s) 213440-Hytn-W7 WIRE TECHNICIAN (Fibrillarin)(RDL) Specimen Comment: was developed and its performance characteristics Specimen Comment: determined by [facility]. It has not been cleared or approved Specimen Comment: by the Food and Drug Administration. Specimen Comment: Test(s) 006755-Eqtf-EI/Scl-75 Ab (RDL) Specimen Comment: was developed and its performance characteristics Specimen Comment: determined by [facility]. It has not been cleared or approved Specimen Comment: by the Food and Drug Administration. Performed By: #### A NTIR, RNA POLYMR, HEP C, ANTI TH TO, HBCAB, PM-SCL ABS, U3 WIRE TECHNICIAN, HBSAG, HBSAB, JOSE #### [facility] , #### CRP, CK, CMP #### [address] HCV Ab Comment Normal . [facility] Comment on above: Order Comment: Speci men Comment: Test(s) [id number] WIRE TECHNICIAN (Fibrillarin)(RDL) Specimen Comment: was developed and its performance characteristics Specimen Comment: determined by [facility]. It has not been cleared or approved Specimen Comment: by the Food and Drug Administration. Specimen Comment: Test(s) [id number]-Hcut-BQ/Scl-75 Ab (RDL) Specimen Comment: was developed and [...] ANTI TH TO, HBCAB, PM-SCL ABS, U3 WIRE TECHNICIAN, HBSAG, HBSAB, JOSE #### [facility] , #### CRP, CK, CMP #### [facility] [address] Hepatitis B Core Antibodyon 08-08-2020 Hepatitis B Core Antibody Negative Normal Negative [facility] Comment on above: Order Comment: Speci men Comment: Test(s) [id number] WIRE TECHNICIAN (Fibrillarin)(RDL) Specimen Comment: was developed and its performance characteristics Specimen Comment: determined by [facility]. It has not been cleared or approved Specimen Comment: by the Food and Drug Administration. Specimen Comment: Test(s) [id number]-Bidt-CS/Scl-75 Ab (RDL) Specimen Comment: was developed and its performance characteristics Specimen Comment: determined by [facility]. It has not been cleared or approved Specimen Comment: by the Food and Drug Administration. Result Comment: Perf ormed at: - [facility] [id number] [place] Architect: David Pace PhD, Phone: [phone] Performed By: #### A NTIR, RNA POLYMR, HEP C, ANTI TH TO, HBCAB, PM-SCL ABS, U3 WIRE TECHNICIAN, HBSAG, HBSAB, JOSE #### [facility] , #### CRP, CK, CMP #### [facility] [address] [place] [address] Hepatitis B Surface Antibody on 08-08-2020 Hepatitis B Surface Antibody Non Reactive Normal . [facility] Comment on above: Order Comment: Speci men Comment: Test(s) [id number]-Lnkh-C3 WIRE TECHNICIAN (Fibrillarin)(RDL) Specimen Comment: was developed and its performance characteristics Specimen Comment: determined by [facility]. It has not been cleared or approved Specimen Comment: by the Food and Drug Administration. Specimen Comment: Test(s) [id number]-Viay-TH/Scl-75 Ab (RDL) Specimen Comment: was developed and [...] ANTI TH TO, HBCAB, PM-SCL ABS, U3 WIRE TECHNICIAN, HBSAG, HBSAB, JOSE #### [facility] , #### CRP, CK, CMP #### [facility] [address] [place] [address] Hepatitis B Surface Antigeno n 08-08-2020 HBsAg Screen Negative Normal Negative [facility] Comment on above: Order Comment: Speci men Comment: Test(s) [id number]-Xdsy-N4 WIRE TECHNICIAN (Fibrillarin)(RDL) Specimen Comment: was developed and its performance characteristics Specimen Comment: determined by [facility]. It has not been cleared or approved Specimen Comment: by the Food and Drug Administration. Specimen Comment: Test(s) [id number]-Hodz-OB/Scl-75 Ab (RDL) Specimen Comment: was developed and its performance characteristics Specimen Comment: determined by [facility]. It has not been cleared or approved Specimen Comment: by the Food and Drug Administration. Performed By: #### A NTIR, RNA POLYMR, HEP C, ANTI TH TO, HBCAB, PM-SCL ABS, U3 WIRE TECHNICIAN, HBSAG, HBSAB, JOSE #### [facility] , #### CRP, CK, CMP #### [facility] [address] [id number] [place] PM-SCL Antibodieson 08-08-19 21 JOHN PM-Scl Antibody <20 Normal <20 [facility] Comment on above: Order Comment: Speci men Comment: Test(s) [id number]-Kmrv-K5 WIRE TECHNICIAN (Fibrillarin)(RDL) Specimen Comment: was developed and its performance characteristics Specimen Comment: determined by [facility]. It has not been cleared or approved Specimen Comment: by the Food and Drug Administration. Specimen Comment: Test(s) [id number]-Yzbt-FD/Scl-75 Ab (RDL) Specimen Comment: was developed and its performance characteristics Specimen Comment: determined by [facility]. It has not been cleared or approved Specimen Comment: by the Food and Drug Administration. Result Comment: Nega tive: <20 Weak Positive: 20 - 39 Moderate Positive: 40 - 80 Strong Positive: >80 Performed at: [facility] [address] [place] [id number] Saas Architect: Shay Mcnair MD, Phone: [phone] Performed By: #### A NTIR, RNA POLYMR, HEP C, ANTI TH TO, HBCAB, PM-SCL ABS, U3 WIRE TECHNICIAN, HBSAG, HBSAB, JOSE #### [facility] , #### CRP, CK, CMP #### [address] RNA Polymerase IIion 021 RNA Polymerase IIi <20 Normal <20 [facility] Comment on above: Order Comment: Speci men Comment: Test(s) [id number]-Hpqs-As/To Ab (RDL) Specimen Comment: was developed and its performance characteristics Specimen Comment: determined by [facility]. It has not been cleared or approved Specimen Comment: by the Food and Drug Administration. Result Comment: Nega tive: <20 Weak Positive: 20 - 39 Moderate Positive: 40 - 80 Strong Positive: >80 Performed at: [facility] [address] [place] [id number] Saas Architect: Shay Mcnair MD, Phone: [phone] PERFORMED BY: [place] [address] PATHOLOGIST RESIDENTIAL LEASING AGENT BEAU JOHNSON M.D. Performed By: #### A NTIR, RNA POLYMR, HEP C, ANTI TH TO, HBCAB, PM-SCL ABS, U3 WIRE TECHNICIAN, HBSAG, HBSAB, JOSE #### [facility] , #### CRP, CK, CMP #### [place] [address] [place] Th/To Antibodyon 08-08-2020 Th/To Antibody Negative Normal Negative [facility] Comment on above: Order Comment: Speci men Comment: Test(s) [id number]-Bpen-He/To Ab (RDL) Specimen Comment: was developed and its performance characteristics Specimen Comment: determined by [facility]. It has not been cleared or approved Specimen Comment: by the Food and Drug Administration. Result Comment: Perf ormed at: [facility] [address] [place] [id number] Sa[place] Architect: Shay Mcnair MD, Phone: [phone] Performed By: #### A NTIR, RNA POLYMR, HEP C, ANTI TH TO, HBCAB, PM-SCL ABS, U3 WIRE TECHNICIAN, HBSAG, HBSAB, JOSE #### [facility] , #### CRP, CK, CMP #### [address] U3 Rnpon 08-08-2020 U3 Rn Intern Negative Normal Negative [facility] Comment on above: Order Comment: Speci men Comment: Test(s) [id number]-Ytzr-P1 WIRE TECHNICIAN (Fibrillarin)(RDL) Specimen Comment: was developed and its performance characteristics Specimen Comment: determined by [facility]. It has not been cleared or approved Specimen Comment: by the Food and Drug Administration. Specimen Comment: Test(s) [id number]-Bwus-XZ/Scl-75 Ab (RDL) Specimen Comment: was developed and its performance characteristics Specimen Comment: determined by [facility]. It has not been cleared or approved Specimen Comment: by the Food and Drug Administration. Result Comment: Perf ormed at: [facility] [address] [place] [id number] Sa[place] Architect: Shay Mcnair MD, Phone: [phone] PERFORMED BY: [place] [address] PATHOLOGIST RESIDENTIAL LEASING AGENT BEAU JOHNSON M.D. Performed By: #### A NTIR, RNA POLYMR, HEP C, ANTI TH TO, HBCAB, PM-SCL ABS, U3 WIRE TECHNICIAN, HBSAG, HBSAB, JOSE #### [facility] , #### CRP, CK, CMP #### [facility] [address] T4on 08-02-2020 T4, Total 9.9 ug/dL 4.5 - 10.9 ug/dL [place], [place] TSH without Reflexon 021 Interpretation and review of laboratory results Abnormal [place], [place] TSH Qn 5.63 m[IU]/L [place], [place] Vital Signs Date Time Vital Sign Value Performing Clinician Faci lity 01-10-2023 19:11-0400 SaO2% (BldA) [Mass fraction] 92 % Bulmaro Padron MD Work Phone: [facility] 01-10-2023 18:46-0400 Diastolic blood pressure 75 mm[Hg] Bulmaro Padron MD Work Phone: [facility] 01-10-2023 18:46-0400 Systolic blood pressure 166 mm[Hg] Bulmaro Padron MD Work Phone: [facility] 01-10-2023 17:33-0400 Body temperature 97.9 [degF] Bulmaro Padron MD Work Phone: [facility] 01-10-2023 17:33-0400 Heart rate 71 /min Bulmaro Padron MD Work Phone: [facility] 01-10-2023 17:33-0400 Respiratory rate 16 /min Bulmaro Padron MD Work Phone: [facility] Encounters Encounter Date Encounter Type Care Provider Facility Start: 04-06-2024 End: 04-06-2024 ambulatory Akira Vargas MD [facility]: [facility] Start: 03-23-2024 End: 03-23-2024 ambulatory Akira Vargas MD Facility: [facility] Start: 03-02-2024 End: 03-02-2024 ambulatory Akira Vargas MD Facility: [facility] Start: 05-28-2023 End: 05-29-2023 ambulatory Ayaush Arielle MENDOZA Facility:[facility] Start: 05-27-2023 ambulatory Aayush SOL [facility] Start: 04-29-2023 ambulatory Aayush MENDOZA Facility:[facility] Start: 04-02-2023 End: 04-03-2023 ambulatory ARMIDA AGEE [facility] Start: 02-01-2023 End: 02-01-2023 Subsequent hospital visit by physician Bulmaro Padron MD Work Phone: [facility] Laboratory Comment on above: Nocturia; Frequency of urination; Urge incontinence Start: 02-01-2023 End: 02-04-2023 ambulatory GABBIE WHITE [facility] Start: 01-10-2023 Emergency department patient visit [facility] Start: 01-10-2023 End: 01-10-2023 Emergency department patient visit Bulmaro Padron MD Work Phone: [facility] ED Comment on above: Right ureteral stone (Primary Dx) Start: 10-09-2022 Emergency department patient visit JORDYN EATON [facility] Start: 06-19-2022 End: 06-20-[address] BULAMRO PADRON Facility:[facility] Start: 05-23-2022 End: 05-24-[address] BULMARO PADRON Facility:[facility] Start: 03-28-2022 End: 03-29-[address] BULMARO PADRON Facility:[facility] Start: 03-06-2022 End: 03-07-[address] BULMARO PADRON Facility:[facility] Start: 07-25-2021 End: 07-25-[address] BULMARO PADRON Facility:[facility] Start: 07-20-2021 End: 07-21-[address] BULMARO PADRON Facility:[facility] Start: 08-02-2020 End: 08-02-2020 Subsequent hospital visit by physician Bulmaro AVENDAÑO Laboratory Procedures Date Procedure Procedure Detail Performing Clinician Start: 02-01-2023 Culture bacterial quanttative colony count urine Gabbie White [employer] 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 Work Phone: Start: 01-10-2023 Ct abdomen & pelvis w/o contrast material Cari Britton [facility] Work Phone: Start: 01-10-2023 Comprehensive metabo lic panel Cari Britton [facility] Work Phone: Start: 01-10-2023 Urinalysis microscopic only Unknown Provider Result Start: 01-10-2023 Urnls dip stick/tabl et rgnt auto w/o microscopy Cari Britton [facility] Work Phone: Start: 08-02-2020 Assay of thyroid stimulating hormone tsh Bulmaro Padron Work Phone: Start: 08-02-2020 Assay of thyroxine total Bulmaro Padron Work Phone: Plan of Treatment Date Care Activity Detail Author Start: 01-27-2028 DTaP/Tdap/Td vaccine (2 - Td or Tdap) DTaP/Tdap/Td vaccine (2 - Td or Tdap) [facility] Start: 01-27-2028 DTaP/Tdap/Td vaccine (2 - Td) DTaP/Tdap/Td vaccine (2 - Td) [place] Start: 02-12-2023 Influenza vaccination B ON [facility] Start: 03-15-2020 Influenza vaccination Flu vaccine (# 1) [place], [place] Start: 01-04-2019 Annual Wellness Visi t (AWV) Annual Wellness Visit (AWV) [facility] Start: 2012 Screening for malign ant neoplasm of breast Breast cancer screen [facility] Start: 2012 Screening for malign ant neoplasm of colon Colon cancer screen colonoscopy [place], [place] Start: 2012 Shingles Vaccine (1 of 2) Shingles Vaccine (1 of 2) [facility] Start: 12-15-2007 Screening for malign ant neoplasm of colon [facility] Start: 2002 Lipid panel [facility] Start: 1997 Diabetes screen Diabetes screen [facility] Start: 1992 Screening for malign ant neoplasm of cervix [facility] Start: 12-15-1983 Screening for malign ant neoplasm of cervix [facility] Start: 1980 Hepatitis C screening Hepatitis C ca sonny [facility] Start: 1977 HIV screening HIV screen [facility] Start: 1974 Depression Screen Depression Screen [facility] Start: 06-15-1963 COVID-19 Vaccine (#1) COVID-19 Vacci ne (#1) [facility] Start: 1962 Hepatitis C screening Hepatitis C [place], [place] End: 08-02-2020 Free T3 [Mass/Vol] T3, Free Lab Routine Once for 1 Occurrences starting 08/02/2020 until 08/02/2020 [place], [place] Comment on above: Once for 1 Occurrenc es starting 08/02/2020 until 08/02/2020 Free T3 [Mass/Vol] T3, Free Lab Routine 08/02/2020 10:13 AM EST [place] Immunizations Immunization Date Immunization Notes Care Provider Gt doyle 01-26-2018 tetanus toxoid, redu clare diphtheria toxoid, and acellular pertussis vaccine, adsorbed Bulmaro Hoy [facility] Payers Date Payer Category Payer Private Health Insurance 2018 Medicare [id number] 2017 Unknown [id number] 1962 Unknown [id number] 2.16.84 [id number] 1962 Unknown [id number] 2.16.84 [id number] 1962 Unknown [id number] 2.16.84 [id number] 1962 Unknown [id number] 2.16.84 0.1.743671.3.579.2.593 1962 Unknown [id number] 2.16.84 0.1.605675.3.579.2.593 1962 Unknown [id number] 2.16.84 [id number] 1962 Unknown [id number] 2.16.8 [id number] 1962 Unknown [id number] 2.16.8 [id number] 1962 Unknown [id number] 2.16.8 [id number] 1962 Unknown [id number] 2.16.8 [id number] 1962 Unknown [id number] 2.16.8 [id number] 1962 Unknown [id number] 2.16. [id number] 1962 Unknown [id number] 2.16. [id number] 1962 Unknown [id number] 2.16. [id number] Social History Date Type Detail Facility Start: 07-01-2018 End: 01-11-2023 Tobacco smoking status NHIS Former smoker [place], [place] Start: 07-01-2018 End: 01-11-2023 Tobacco use and exposure Never used [place], [place] Start: 07-01-2018 End: 02-01-2023 Alcohol intake Current non-drinker of alcohol (finding) [place], [place] Start: 1960 Sex Assigned At Not on file [place], [place] History of tobacco [facility] Start: 10-09-2022 History SDOH Alcohol Frequency 1 [facility] [employer] Start: 10-09-2022 History SDOH Alcohol Std Drinks 0 [facility] Clinical Note 05-28-2023 Note Date [...] Substance Abuse, 05/28/20 (more content not included)... [facility] Comment on above: Result Comment: Elec tronically [...] cannot be sent through Care Everywhere.Kidney Stone (Latvian)documented in this encounter [facility] Evaluation note Note Date & Type Note Facility Evaluation note Diagnosis Right ureteral stone- Primary Calculus of ureter documented in this encounter [facility] Evaluation note Note Date & Type Note Facility Evaluation note Diagnosis Nocturia Frequency of urination Urinary frequency Urge incontinence documented in this encounter [facility] Advance Directives No Advanced Directives Records FoundDocuments on File Type Date Recorded 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 Summary Purpose Family History No Family History Records FoundNo Family History Records FoundNo Family History Records FoundNo Family History Records FoundNo Family History Records Found Additional Source Comments INFORMATION SOURCE (unrecogn ized section and content) DATE CREATED AUTHOR 08/17/2020 [facility] DATE CREATED AUTHOR AUTHOR'S ORGANIZ ATION 06/23/2022 [facility] DATE CREATED AUTHOR AUTHOR'S ORGANIZ ATION 04/05/2023 [facility] DATE CREATED AUTHOR AUTHOR'S ORGANIZ ATION 05/29/2023 [facility] DATE CREATED AUTHOR AUTHOR'S ORGANIZ ATION 04/18/2024 [facility] Reason for Visit (unrecogniz ed [...] 1 dose, On Lashawn 01/10/23 at 1745 1803 (Given - Provid er: Whitney Ingram RN) tamsulosin (FLOMAX) capsule 0.4 mg 0.4 mg, Oral, DAILY, First dose on Lashawn 01/10/23 at 1945, Until Discontinued, Do not crush or break. Give 30 minutes after a full meal to limit risk of orthostatic hypotension/falls. 2003 (Given - Provid er: Celia Brady RN) Care Teams (unrecognized sec tion and content) [employer] Lieutenant Relationship Specialty Start Date End Date Bulmaro Padron MD [address] [place] [address] PCP - General Family Medicine 01/26/18 [employer] Lieutenant Relationship Specialty Start Date End Date Bulmaro Padron MD [address] [place] [address] PCP - General Family Medicine 01/26/18 FOR [...] BE BASED ON THE PRIMARY CLINICAL RECORDS. [facility]. provides no warranty or guarantee of the accuracy or completeness of information in this document.
--- NOTE | 2024-04-22 11:25 | P.CN_ITS ---
Consult Note: HPI Data of Consult Patient: known to practice within the last 3 years Consult date: 03/02/24 Requesting Physician: Liz Perales NP Primary Care Provider: Sebastien Padron MD Consult Narrative Reason for consult: low back pain Narrative: 63yof who presents for evaluation. longstanding low back pain history >20 years, now worsening. worse with standing and ambulation. imaging reviewed, which shows facet arthropathy throughout lower lumbar spine. has engaged in physical therapy and continues in >6 weeks of provider directed home exercise program, without lasting benefit. has tried various pain meds, without significant benefit. tried muscle relaxers without benefit. denies adverse med side effects. recently underwent bilateral L4-5 L5-S1 MBB #1 with >80% improvement in pain and functional ability immediately following and at least two hours after the procedure, pain 1/10, however with MBB#2 she had minimal relief, pain 5/10 prior and 3-4/10 after for 1 hour before returning to baseline. Patients thoracic xray shows minimal degenerative changes. Patient has found benefit to baclofen 5-10mg HS PRN. patient reporting increase in heaviness, numbness, tingling and weakness of bilateral thighs and knees with standing walking climbing stairs. improved with forward flexion and sitting. previous lumbar MRI does shows stenosis at multiple levels including L4-5. cc:: CC: Liz Perales NP Review of Systems ROS Status of ROS 10 or more systems reviewed and unremark able except as noted in history and below Musculoskeletal Reports: back pain PFSH PFSH Medical History (Updated 04/08/24 @ 11:00 by Liz Perales NP) H/O complications due to general anesthesia ?Z91.89 - Other specified personal risk factors, not elsewhere classified (ICD-10) Anemia ?D64.9 - Anemia, unspecified (ICD-10) Heartburn ?R12 - Heartburn (ICD-10) Obesity ?E66.9 - Obesity, unspecified (ICD-10) Hypothyroid ?E03.9 - Hypothyroidism, unspecified (ICD-10) Asthma ?J45.909 - Unspecified asthma, uncomplicated (ICD-10) Surgical History H/O abdominal surgery ?Z98.890 - Other specified postprocedural states (ICD-10) S/P hernia repair ?Z98.890 - Other specified postprocedural states (ICD-10) ?Z87.19 - Personal history of other diseases of the digestive system (ICD-10) Meds Home Medications and Allergies Home Medications ?Medication ?Instructions ?Recorded ?Confirmed ?Type albuterol sulfate 90 mcg/actuation 2 inh inhalation Q6H PRN shortness 03/02/24 04/06/24 History breath activated powder inhaler of breath or wheezing aspirin 81 mg capsule 81 mg PO DAILY 03/02/24 04/06/24 History cholecalciferol (vitamin D3) 50 50 mcg PO DAILY 03/02/24 04/06/24 History mcg (2,000 unit) capsule hydroxychloroquine 200 mg tablet 200 mg PO DAILY 03/02/24 04/06/24 History levothyroxine 150 mcg capsule 150 mcg PO DAILY 03/02/24 04/06/24 History liothyronine 5 mcg tablet 15 mcg PO DAILY 03/02/24 04/06/24 History baclofen 10 mg tablet 10 mg PO TID PRN muscle spasm 04/08/24 04/08/24 History Allergies Allergy/AdvReac Type Severity Reaction Status Date / Time bee pollen AdvReac Mild itching Verified 04/06/24 07:16 Exam Constitutional Documenting provider has reviewed patient's vital signs: yes Common normals: no apparent distress, oriented x3, healthy appearing, alert and well nourished General appearance: cooperative HENAR Common normals: normocephalic, hearing grossly normal bilaterally and moist oral mucous membranes Head and scalp: normocephalic Eye Common normals: PERRL Pupil: PERRL Neck & C-Spine Common normals: full ROM General: normal visual inspection Chest Common normals: inspection of chest normal Respiratory Common normals: normal respiratory effort, no retractions and no use of accessory muscles Back & Pelvis Thoracic spine/upper back: pain with ROM, thoracic spinal tenderness and paraspinal muscle tenderness Lumbar spine/lower back: pain with ROM, lumbar spinal tenderness, paraspinal muscle tenderness, straight leg raise positive right and straight leg raise positive left Sacroiliac joints: SI joint(s) abnormal Other: sensation intact BLE, strength 5/5 in BLE significant myofascial pain and spasming Extremity Common normals: normal to inspection and full ROM Neuro Common normals: oriented x3, CN's II-XII intact bilaterally, moves all extremities, no focal motor deficits, no sensory deficits noted and deep tendon reflexes 2+ bilaterally Sensorium/orientation: alert Motor exam: strength 5/5 throughout and no movement abnormalities noted Psych Common normals: mental status grossly normal, thought process normal, cooperative, affect normal, speech normal and activity/motor behavior normal Speech: normal speech Thought process: normal thought process Results Additional Findings Additional findings: If on a controlled substance or opioids, I have checked an [place]AR[place] report on this patient and there are no aberrancies noted in the prescribing history.??If on a controlled substance or opioid a drug screen was completed and reviewed within the last year, and if there has not been a drug screen completed we ordered one today to monitor higher risk, state monitored pain medication use. As part of providing excellent, safe, comprehensive care, the following was completed at our patient's visit: 1. A medication reconciliation and review to ensure accurate knowledge of current/active medications, including asking our patients to inform us about any oqfs-efg-rolhile medications or herbal remedies/nutritional supplements/alternative remedies. 2. A review to specifically ensure our patients have had annual screening for screening for depression, screening for tobacco use, and screening for unhealthy alcohol use. For concerning screenings had a discussion with the patient, provided patient education, and recommended follow-up with primary care provider when appropriate. If patient noted with a risk of falling, they received education on strength, gait, and balance training to prevent future risk of falling. Assessment and Plan Assessment and Plan (1) Lumbar stenosis with neurogenic claudication: (2) Lumbar spondylosis: (3) Thoracic spondylosis: (4) Myofascial pain: Plan proceed with bilateral l4-5 TFESI under fluoroscopy for lumbar stenosis with NC, procedure to be completed with 10mg po valium 30-60 mins prior to procedure for anxiolysis continue hep as tolerated continue current medications f/u after injection
== END 2024-04-22 11:00 | disposition home or self-care (01) ==
LOC: PM 10:59
PROVIDERS: PCP Family Medicine; Visit Provider Nurse Practitioner
DX: M48.062 Spinal stenosis, lumbar region with neurogenic claudication (principal); M47.816 Spondylosis without myelopathy or radiculopathy, lumbar region; M47.814 Spondylosis without myelopathy or radiculopathy, thoracic region; M79.18 Myalgia, other site
CPT/HCPCS: G0463

== ENCOUNTER 2024-05-11 07:50 | Day surgery (SDC) | payer MEDICARE, SELFPAY ==
--- OUTSIDE RECORDS SUMMARY | 2024-05-11 08:02 | XMS_ITS | CCD ---
Author Organization [facility] CliniSyal Care Team Providers Care Urban Designer Name Role Phone Bulmaro Padron Primary Care Provider [phone] DR BULMARO PADRON Admitting Unavailable VITO, DR [...] Unavailable Bulmaro Padron MD Primary Care Provider [phone] GABBIE WHITE Referring Unavailable BULMARO PADRON Primary [...] [Bee Stings] Propensity to adverse reactions (disorder) [facility] Repository (1 source) No Known Medication Allergies; Translations: [No Known Medication Allergies] Propensity to adverse reactions (disorder) [facility] Repository Medications Current Medications Medication Drug [...] for choosing us for your care. Normal [facility] RAD - CT Reporton 05-23-2023 RAD - CT Report [id number] 0TIFF Normal [facility] Patient Letter FTon 2022 Patient Letter [facility] May 16, 2023 YAS KURTZ [address] [place] [address] : 1960 Dear Ms. Kurtz, Thank you for choosing [facility] for your healthcare needs. Your consultation appointment with Dr Aayush Mendoza is scheduled for 05/28/23 at 10am. We are located in the [place] [address] building, 2nd floor, [address]. A map is enclosed. Please bring your insurance card, a photo ID, and any co-pay you are responsible for to this first appointment. If you have any questions, please call us at [phone]. We look forward to seeing you soon. Sincerely, [place] [address], [address] [place] [address]. [place] [address] [facility] Consultation Noteon 05-01-20 Consultation Note [id number] 0TIFF Normal [facility] Physician Referralon 023 Physician Referral [id number] 0TIFF Normal [facility] Cult,Urineon 04-03-2023 Cult,Urine Specimen Description .CLEAN CATCH URINE Culture NO SIGNIFICANT GROWTH Report Status FINAL 04/03/2023 [facility] Comment on above: Performed By: #### B C #### [facility] [address] [place], [place] [id number] Incident Coordinator: Stu Baires MD Trichomonas/Wet Prepon 04-02 Trichomonas/Wet Prep Specimen Description .VAGINA Direct Exam NO YEAST OBSERVED NO TRICHOMONAS SEEN NO CLUE CELLS SEEN Report Status FINAL 04/02/2023 Normal [facility] Comment on above: Performed By: #### W P #### [facility] [address] [place] [address] Incident Coordinator: Stu Baires MD Cult,Urineon 02-03-2023 Cult,Urine Specimen Description .CLEAN CATCH URINE Culture NO SIGNIFICANT GROWTH Report Status FINAL 02/02/2023 Normal [facility] Comment on above: Performed By: #### U RC #### [facility] [address] [place] [address] Incident Coordinator: Victor Manuel Be MD [facility] [address] [place] [address] Incident Coordinator: Stu Baires MD Culture, Urineon 02-02-2023 Microorganism identified Cx Nom (Unsp spec) NO SIGNIFICANT GROWTH [facility] Specimen Description .CLEAN CATCH URINE [facility] CT ABDOMEN PELVIS WO CONTRAS [...] Ar Graves MD 02/01/23 Final result Normal [facility] CBC with Auto Differentialon 01-10-2023 Basophils (Bld) [#/Vol] 0.03 10*3/uL [facility] Basophils/100 WBC (Bld) 0 % 0 - 2 % [facility] Eosinophils (Bld) [#/Vol] 0.03 10*3/uL [facility] Eosinophils/100 WBC (Bld) 0 % Low 1 - 4 % [facility] Erythrocyte distribution width (RBC) [Ratio] 12.6 % 11.8 - 14.4 % [facility] Hematocrit (Bld) [Volume fraction] 43.5 % 36.3 - 47.1 % [facility] Hemoglobin (Bld) [Mass/Vol] 14.4 g/dL 11.9 - 15.1 g/dL [facility] Immature granulocytes (Bld) [#/Vol] [facility] Immature granulocytes/100 WBC (Bld) 0 % 0 [facility] Interpretation and review of laboratory results Abnormal [facility] Lymphocytes/100 WBC (Bld) 11 % Low 24 - 43 % [facility] Lymphocytes/100 WBC (Bld) 0.90 % Low [facility] MCH (RBC) [Entitic mass] 31.5 pg 25.2 - 33.5 pg [facility] MCHC (RBC) [Mass/Vol] 33.1 g/dL 28.4 - 34.8 g/dL [facility] MCV (RBC) [Entitic vol] 95.2 fL 82.6 - 102.9 fL [facility] Monocytes/100 WBC (Bld) 5 % 3 - 12 % [facility] Monocytes/100 WBC (Bld) 0.44 % [facility] Neutrophils/100 WBC (Bld) 84 % High 36 - 65 % [facility] Nucleated RBC/100 WBC (Bld) [Ratio] 0.0 % 0.0 per 100 WBC [facility] Platelet mean volume (Bld) [Entitic vol] 10.8 fL 8.1 - 13.5 fL [facility] Platelets (Bld) [#/Vol] 210 10*3/uL [facility] RBC (Bld) [#/Vol] 4.57 10*6/uL 3.95 - 5.1 1 m/uL [facility] Segmented neutrophils/100 WBC (Bld) 7.13 % [facility] WBC other (Bld) [#/Vol] 8.6 [facility] CBC with Diffon 01-10-2023 Abs. Basophil 0.03 k/uL Normal 0.00-0.20 [facility] Comment on above: Performed By: #### C DP, CP #### [address] [place] [id number] Incident Coordinator: Stu Baires MD Abs.Imm.Granulocyte <0.03 Normal 0.00-0.30 [facility] Comment on above: Performed By: #### C DP, CP #### [address] [place], [place] [address] Incident Coordinator: Stu Baires MD Abs.Neutrophil (Seg) 7.13 k/uL Normal 1.50-8.10 [facility] Comment on above: Performed By: #### C DP, CP #### [address] [place], [facility] Incident Coordinator: Stu Baires MD Basophils/100 WBC (Bld) 0 % Normal 0-2 [facility] Comment on above: Performed By: #### C DP, CP #### [address] [place], [facility] Incident Coordinator: Stu Baires MD Eosinophils (Bld) [#/Vol] 0.03 10*3/uL Normal 0.00-0.44 [facility] Comment on above: Performed By: #### C DP, CP #### [address] [place] [address] Incident Coordinator: Stu Baires MD Eosinophils/100 WBC (Bld) 0 % Low 1-4 [facility] Comment on above: Performed By: #### C DP, CP #### [address] [place] [address] Incident Coordinator: Stu Baires MD Erythrocyte distribution width (RBC) [Ratio] 12.6 % Normal 11.8-14.4 [facility] Comment on above: Performed By: #### C DP, CP #### [address] [place] [address] Incident Coordinator: Stu Baires MD Hematocrit (Bld) [Volume fraction] 43.5 % Normal 36.3-47.1 [facility] Comment on above: Performed By: #### C DP, CP #### [address] [place] [address] Incident Coordinator: Stu Baires MD Hemoglobin (Bld) [Mass/Vol] 14.4 g/dL Normal 11.9-15.1 [facility] Comment on above: Performed By: #### C DP, CP #### [address] [place] [address] Incident Coordinator: Stu Baires MD Immature granulocytes/100 WBC (Bld) 0 % Normal 0 [facility] Comment on above: Performed By: #### C DP, CP #### [address] [place], [facility] Incident Coordinator: Stu Baires MD Lymphocytes (Bld) [#/Vol] 0.90 10*3/uL Low 1.10-3.70 [facility] Comment on above: Performed By: #### C DP, CP #### [address] [place] [id number] Incident Coordinator: Stu Baires MD Lymphocytes/100 WBC (Bld) 11 % Low 24-43 [facility] Comment on above: Performed By: #### C DP, CP #### [facility] [address] [place], [place] [id number] Incident Coordinator: Stu Baires MD MCH (RBC) [Entitic mass] 31.5 pg Normal 25.2-33.5 [facility] Comment on above: Performed By: #### C DP, CP #### [facility] [address] [place], [place] [id number] Incident Coordinator: Stu Baires MD MCHC (RBC) [Mass/Vol] 33.1 g/dL Normal 28.4-34.8 [facility] Comment on above: Performed By: #### C DP, CP #### [address] [place], [place] [address] Incident Coordinator: Stu Baires MD MCV (RBC) [Entitic vol] 95.2 fL Normal 82.6-102.9 [facility] Comment on above: Performed By: #### C DP, CP #### [address] [place], [place] [phone] Incident Coordinator: Stu Baires MD Monocytes (Bld) [#/Vol] 0.44 10*3/uL Normal 0.10-1.20 [facility] Comment on above: Performed By: #### C DP, CP #### [address] [place], [place] [address] Incident Coordinator: Stu Baires MD Monocytes/100 WBC (Bld) 5 % Normal 3-12 [facility] Comment on above: Performed By: #### C DP, CP #### [facility] [address] [place] [address] [place], [place] [id number] Incident Coordinator: Stu Baires MD Neutrophil (Seg) 84 % High 36-65 [facility] Comment on above: Performed By: #### C DP, CP #### [facility] [address] [place], [facility] Incident Coordinator: Stu Baires MD NRBC Automated 0.0 per 100 WBC Normal 0.0 [facility] Comment on above: Performed By: #### C DP, CP #### [facility] [address] [place] [address] Incident Coordinator: Stu Baires MD Platelet mean volume (Bld) [Entitic vol] 10.8 fL Normal 8.1-13.5 [facility] Comment on above: Performed By: #### C DP, CP #### [facility] [address] [place] [address] Incident Coordinator: Stu Baires MD Platelets (Bld) [#/Vol] 210 10*3/uL Normal 138-453 [facility] Comment on above: Performed By: #### C DEMETRIO, CP #### [facility] [address] [place] [address] Incident Coordinator: Stu Baires MD RBC (Bld) [#/Vol] 4.57 10*6/uL Normal 3.95-5.11 [facility] Comment on above: Performed By: #### C DP, CP #### [facility] [address] [place] [address] Incident Coordinator: Stu Baires MD WBC (Bld) [#/Vol] 8.6 10*3/uL Normal 3.5-11.3 [facility] Comment on above: Performed By: #### C DP, CP #### [facility] [address] [place] [address] Incident Coordinator: Stu Baires MD [facility] Albumin [Mass/Vol] 4.3 g/dL 3.5 - 5.2 g/dL [facility] Albumin/Globulin [Mass ratio] 1.4 {ratio} 1.0 - 2.5 [facility] ALP [Catalytic activity/Vol] 97 U/L 35 - 104 U/L [facility] ALT [Catalytic activity/Vol] 29 U/L 5 - 33 U/L [facility] Anion gap [Moles/Vol] 8 mmol/L Low 9 - 17 mmol/L [facility] AST [Catalytic activity/Vol] 25 U/L NINF - 32 U/L [facility] Bilirubin [Mass/Vol] 0.3 mg/dL 0.3 - 1.2 mg/dL [facility] Calcium [Mass/Vol] 9.3 mg/dL 8.6 - 10. 4 mg/dL [facility] Chloride [Moles/Vol] 105 mmol/L 98 - 107 mmol/L [facility] CO2 [Moles/Vol] 25 mmol/L 20 - 31 mmol/L [facility] Creatinine [Mass/Vol] 0.51 mg/dL 0.50 - 0.90 mg/dL [facility] GFR/1.73 sq M.predicted MDRD (S/P/Bld) [Vol rate/Area] - PINF [facility] Comment on above: These results are [...] 140 mg/dL High 70 - 99 mg/dL [facility] Interpretation and review of laboratory results Abnormal [facility] Potassium [Moles/Vol] 4.3 mmol/L 3.7 - 5.3 mmol/L [facility] Protein [Mass/Vol] 7.4 g/dL 6.4 - 8.3 g/dL [facility] Sodium [Moles/Vol] 138 mmol/L 135 - 144 mmol/L [facility] Urea nitrogen [Mass/Vol] 13 mg/dL 8 - 23 mg/dL [facility] Urea nitrogen/Creatinine [Mass ratio] 25 mg/mg High 9 - [address] [facility] [address] ABDOMEN PELVIS WO CONTRAS [...] Enrico Armstrong MD 01/10/23 Final result Normal [facility] CT ABDOMEN PELVIS WO CONTRAS T Additional Contrast? Noneon 01-10-2023 1. 2 mm stone at the right ureterovesical junction with mild hydroureteronephrosis. 2. 1.6 cm left adrenal nodule unchanged from 2018 compatible with a benign adenoma. No follow-up recommended. [facility] EXAMINATION: CT OF THE ABDOMEN [...] No acute osseous or soft tissue abnormality. [facility] Enrico Armstrong MD - 01/10/2023 [...] with a benign adenoma. No follow-up recommended. [facility] Radiology Study observation (narrative) [facility] CT ABDOMEN PELVIS WO CONTRAS T Additional Contrast? NoneOrdered By: Enrico Armstrong on 01-10-2023 [facility] Work Phone: Comp Metabolic Profon 2022 Albumin [Mass/Vol] 4.3 g/dL Normal 3.5-5.2 [facility] Comment on above: Performed By: #### B C #### [facility] [address] [place], [place] [address] Incident Coordinator: Stu Baires MD Albumin/Glob Ratio 1.4 Normal 1.0-2.5 [facility] Comment on above: Performed By: #### B C #### [facility] [address] [place], [place] [phone] Incident Coordinator: Stu Baires MD Alkaline Phos 97 U/L Normal 35-104 [facility] Comment on above: Performed By: #### B C #### [facility] [address] [place], [place] [phone] Incident Coordinator: Stu Baires MD ALT [Catalytic activity/Vol] 29 U/L Normal 5-33 [facility] Comment on above: Performed By: #### B C #### [facility] [address] [place], [place] [phone] Incident Coordinator: Stu Baires MD Anion gap [Moles/Vol] 8 mmol/L Low 9-17 [facility] Comment on above: Performed By: #### B C #### [facility] [address] [place], [place] [phone] Incident Coordinator: Stu Baires MD AST [Catalytic activity/Vol] 25 U/L Normal <32 [facility] Comment on above: Performed By: #### B C #### [facility] [address] [place], [place] [phone] Incident Coordinator: Stu Baires MD Bilirubin [Mass/Vol] 0.3 mg/dL Normal 0.3-1.2 [facility] Comment on above: Performed By: #### B C #### [facility] [address] [place], [place] [id number] Incident Coordinator: Stu Baires MD BUN/CRE Ratio 25 High 9-20 [facility] Comment on above: Performed By: #### B C #### [facility] [address] [place], [place] [phone] Incident Coordinator: Stu Baires MD Calcium [Mass/Vol] 9.3 mg/dL Normal 8.6-10.4 [facility] Comment on above: Performed By: #### B C #### [facility] [address] [place] [id number] Incident Coordinator: Stu Baires MD Chloride [Moles/Vol] 105 mmol/L Normal 98-107 [facility] Comment on above: Performed By: #### B C #### [facility] [address] [place] [id number] Incident Coordinator: Stu Baires MD CO2 [Moles/Vol] 25 mmol/L Normal 20-31 [facility] Comment on above: Performed By: #### B C #### [facility] [address] [place] [id number] Incident Coordinator: Stu Baires MD Creatinine [Mass/Vol] 0.51 mg/dL Normal 0.50-0.90 [facility] Comment on above: Performed By: #### B C #### [address] [place], [place] [id number] Incident Coordinator: Stu Baires MD GFR/1.73 sq M.predicted among non-blacks MDRD (S/P/Bld) [Vol rate/Area] mL/min/{1.73_m2} Normal >60 [facility] Comment on above: Result Comment: These results [...] secretion. Performed By: #### B C #### [facility] [address] [place] [address] Incident Coordinator: Stu Baires MD Glucose [Mass/Vol] 140 mg/dL High 70-99 [facility] Comment on above: Performed By: #### B C #### [facility] [address] [place] [address] Incident Coordinator: Stu Baires MD Potassium [Moles/Vol] 4.3 mmol/L Normal 3.7-5.3 [facility] Comment on above: Performed By: #### B C #### [facility] [address] [place] [address] Incident Coordinator: Stu Baires MD Protein [Mass/Vol] 7.4 g/dL Normal 6.4-8.3 [facility] Comment on above: Performed By: #### B C #### [facility] [address] [place] [address] [place] [address] Incident Coordinator: tSu Baires MD Sodium [Moles/Vol] 138 mmol/L Normal 135-144 [facility] Comment on above: Performed By: #### B C #### [address] [place] [address] Incident Coordinator: Stu Baires MD Urea nitrogen [Mass/Vol] 13 mg/dL Normal 8-23 [facility] Comment on above: Performed By: #### B C #### [facility] [address] [place] [address] Incident Coordinator: Stu Baires MD Microscopic Urinalysison Bacteria LM Ql (Urine sed) TRACE Abnormal None [facility] Epithelial cells LM.HPF (Urine sed) [#/Area] 0 TO 2 [facility] Interpretation and review of laboratory results Abnormal [facility] RBC LM.HPF (Urine sed) [#/Area] 0 TO 2 [facility] WBC LM.HPF (Urine sed) [#/Area] 10 TO 20 [facility] Urinalysison 01-10-2023 Bilirubin Ql (U) Negative NEGATIVE [facility] Clarity (U) Clear Clear [facility] Color (U) Yellow Yellow [facility] Glucose Test strip (U) [Mass/Vol] Negative NEGATIVE [facility] Hemoglobin Auto test strip Ql (U) Negative NEGATIVE [facility] Interpretation and review of laboratory results Abnormal [facility] Ketones (U) [Mass/Vol] Negative NEGATIVE [facility] Leukocyte esterase Test strip Ql (U) SMALL Abnormal NEGATIVE [facility] Nitrite Ql (U) Negative NEGATIVE [facility] pH (U) 5.5 [pH] 5.0 - 9.0 [facility] Protein (U) [Mass/Vol] Negative NEGATIVE [facility] Specific gravity (U) [Rel density] High 1.010 - 1.020 [facility] Urobilinogen Qn (U) Normal Normal [facility] Urinalysis, Routineon 2022 Bilirubin, SemiQt,Ur Negative Normal NEG [facility] Comment on above: Performed By: #### B C #### [facility] [address] [place] [address] [place] [address] Incident Coordinator: Stu Baires MD Blood, Urine Negative Normal NEG [facility] Comment on above: Performed By: #### B C #### [facility] [address] [place] [address] Incident Coordinator: Stu Baires MD Clarity (U) Clear Normal CLEAR [facility] Comment on above: Performed By: #### B C #### [facility] [address] [place] [address] Incident Coordinator: Stu Baires MD Color (U) Yellow Normal YEL [facility] Comment on above: Performed By: #### B C #### [facility] [address] [place] [address] Incident Coordinator: Stu Baires MD Glucose Ql (U) Negative Normal NEG [facility] Comment on above: Performed By: #### B C #### [facility] [address] [place] [address] Dr[place], [place] [phone] Incident Coordinator: Stu Baires MD Ketones Ql (U) Negative Normal NEG [facility] in Hospital Comment on above: Performed By: #### B C #### [facility] [address] [place] [address] Dr[place], [place] [phone] Incident Coordinator: Stu Baires MD Leukocyte esterase Test strip Ql (U) SMALL Abnormal NEG [facility] Comment on above: Performed By: #### B C #### [facility] [address] [place] [address] Dr[place], [place] [phone] Incident Coordinator: Stu Baires MD Nitrite,Ur Negative Normal NEG [facility] Comment on above: Performed By: #### B C #### [facility] [address] [place] [address] [place], [place] [phone] Incident Coordinator: Stu Baires MD PH,Ur 5.5 Normal 5.0-9.0 [facility] Comment on above: Performed By: #### B C #### [address] [place], [place] [phone] Incident Coordinator: Stu Baires MD Protein Ql (U) Negative Normal NEG [facility] Comment on above: Performed By: #### B C #### [facility] [address] [place] [address] Dr[place], [place] [phone] Incident Coordinator: Stu Baires MD Spec. [place] >1.030 High 1.010-1.020 [facility] Comment on above: Performed By: #### B C #### [facility] [address] [place] [address] Dr[place], [place] [phone] Incident Coordinator: Stu Baires MD Urobilinogen,Ur Normal Normal NORM [facility] Comment on above: Performed By: #### B C #### [facility] [address] [place], [place] [phone] Incident Coordinator: Stu Baires MD Urinalysis,Microon 3 Bacteria TRACE Abnormal NONE [facility] Comment on above: Performed By: #### B C #### [facility] [address] [place], [place] [phone] Incident Coordinator: Stu Baires MD Epithelial cells LM Ql (Urine sed) 0 TO 2 Normal 0-25 [facility] Comment on above: Performed By: #### B C #### [facility] [address] [place], [place] [phone] Incident Coordinator: Stu Baires MD Urine RBC's 0 TO 2 Normal 0-2 [facility] Comment on above: Performed By: #### B C #### [facility] [address] [place], [place] [phone] Incident Coordinator: Stu Baires MD Urine WBC's 10 TO 20 Normal 0-5 [facility] Comment on above: Performed By: #### B C #### [address] [place], [place] [phone] Incident Coordinator: Stu Baires MD Cult, Bloodon 10-14-2022 Cult, Blood Specimen Description .BLOOD Special Requests 10ML LHAND Culture NO GROWTH 5 DAYS Report Status FINAL 10/14/2022 [facility] Comment on above: Performed By: #### B C #### [facility] [address] [place] [address] [place] [address] Incident Coordinator: Stu Baires MD Cult,Bloodon 10-14-2022 Cult,Blood Specimen Description .BLOOD Special Requests 14ml rfa Culture NO GROWTH 5 DAYS Report Status FINAL 10/14/2022 [facility] Comment on above: Performed By: #### B C #### [facility] [address] [place] [address] Dr[place], [place] [address] Incident Coordinator: Stu Baires MD CBC with Diffon 10-09-2022 Abs. Basophil 0.03 k/uL Normal 0.00-0.20 [facility] Comment on above: Performed By: #### C P, CDP #### [address] [place] [address] Incident Coordinator: Stu Baires MD Abs.Imm.Granulocyte <0.03 Normal 0.00-0.30 [facility] Comment on above: Performed By: #### C P, CDP #### [address] [place], [place] [address] Incident Coordinator: Stu Baires MD Abs.Neutrophil (Seg) 2.53 k/uL Normal 1.50-8.10 [facility] Comment on above: Performed By: #### C P, CDP #### [address] [place]ain, [place] [address] Incident Coordinator: Stu Baires MD Basophils/100 WBC (Bld) 1 % Normal 0-2 [facility] Comment on above: Performed By: #### C P, CDP #### [address] [place], [place] [address] Incident Coordinator: Stu Baires MD Eosinophils (Bld) [#/Vol] 0.06 10*3/uL Normal 0.00-0.44 [facility] Comment on above: Performed By: #### C P, CDP #### [address] Mccain, [facility] Incident Coordinator: Stu Baires MD Eosinophils/100 WBC (Bld) 2 % Normal 1-4 [facility] Comment on above: Performed By: #### C P, CDP #### [address] [place], [facility] Incident Coordinator: Stu Baires MD Erythrocyte distribution width (RBC) [Ratio] 13.0 % Normal 11.8-14.4 [facility] Comment on above: Performed By: #### C P, CDP #### [address] [place]ccain, [facility] Incident Coordinator: Stu Baires MD Hematocrit (Bld) [Volume fraction] 38.9 % Normal 36.3-47.1 [facility] Comment on above: Performed By: #### C P, CDP #### [address] [place]ccain, [facility] Incident Coordinator: Stu Baires MD Hemoglobin (Bld) [Mass/Vol] 13.2 g/dL Normal 11.9-15.1 [facility] Comment on above: Performed By: #### C P, CDP #### [address] [place]ccain, [facility] Incident Coordinator: Stu Baires MD Immature granulocytes/100 WBC (Bld) 1 % High 0 [facility] Comment on above: Performed By: #### C P, CDP #### [address] [place], [place] [address] Incident Coordinator: Stu Baires MD Lymphocytes (Bld) [#/Vol] 0.71 10*3/uL Low 1.10-3.70 [facility] Comment on above: Performed By: #### C P, CDP #### [address] [place]ccain, [facility] Incident Coordinator: Stu Baires MD Lymphocytes/100 WBC (Bld) 18 % Low 24-43 [facility] Comment on above: Performed By: #### C P, CDP #### [address] [place]ain, [facility] Incident Coordinator: Stu Baires MD MCH (RBC) [Entitic mass] 32.0 pg Normal 25.2-33.5 [facility] Comment on above: Performed By: #### C P, CDP #### [facility] [address] [place] [address] Incident Coordinator: Stu Baires MD MCHC (RBC) [Mass/Vol] 33.9 g/dL Normal 28.4-34.8 [facility] Comment on above: Performed By: #### C P, CDP #### [facility] [address] [place], [place] [address] Incident Coordinator: Stu Baires MD MCV (RBC) [Entitic vol] 94.2 fL Normal 82.6-102.9 [facility] Comment on above: Performed By: #### C P, CDP #### [address] [place]ccain, [facility] Incident Coordinator: Stu Baires MD Monocytes (Bld) [#/Vol] 0.56 10*3/uL Normal 0.10-1.20 [facility] Comment on above: Performed By: #### C P, CDP #### [address] [place]ccain, [facility] Incident Coordinator: Stu Baires MD Monocytes/100 WBC (Bld) 14 % High 3-12 [facility] Comment on above: Performed By: #### C P, CDP #### [facility] [address] [place], [place] [address] Incident Coordinator: Stu Baires MD Neutrophil (Seg) 64 % Normal 36-65 [facility] Comment on above: Performed By: #### C P, CDP #### [facility] [address] [place], [facility] Incident Coordinator: Stu Baires MD NRBC Automated 0.0 per 100 WBC Normal 0.0 [facility] Comment on above: Performed By: #### C P, CDP #### [facility] [address] [place], [facility] Incident Coordinator: Stu Baires MD Platelet mean volume (Bld) [Entitic vol] 11.1 fL Normal 8.1-13.5 [facility] Comment on above: Performed By: #### C P, CDP #### [facility] [address] [place], [place] [id number] Incident Coordinator: Stu Baires MD Platelets (Bld) [#/Vol] 221 10*3/uL Normal 138-453 [facility] Comment on above: Performed By: #### C P, CDP #### [facility] [address] [place], [place] [id number] Incident Coordinator: Stu Baires MD RBC (Bld) [#/Vol] 4.13 10*6/uL Normal 3.95-5.11 [facility] Comment on above: Performed By: #### C P, CDP #### [facility] [address] [place], [place] [id number] Incident Coordinator: Stu Baires MD WBC (Bld) [#/Vol] 3.9 10*3/uL Normal 3.5-11.3 [facility] Comment on above: Performed By: #### C P, CDP #### [facility] [address] [place], [place] [id number] Incident Coordinator: Stu Baires MD Comp Metabolic Profon 2022 Albumin [Mass/Vol] 3.4 g/dL Low 3.5-5.2 [facility] Comment on above: Performed By: #### C P, CDP #### [facility] [address] [place] [address] Incident Coordinator: Stu Baires MD Albumin/Glob Ratio 1.2 Normal 1.0-2.5 [facility] Comment on above: Performed By: #### C P, CDP #### [facility] [address] [place] [address] Incident Coordinator: Stu Baires MD Alkaline Phos 108 U/L High 35-104 [facility] Comment on above: Performed By: #### C P, CDP #### [facility] [address] [place], [place] [phone] Incident Coordinator: Stu Baires MD ALT [Catalytic activity/Vol] 30 U/L Normal 5-33 [facility] Comment on above: Performed By: #### C P, CDP #### [facility] [address] [place], [place] [phone] Incident Coordinator: Stu Baires MD Anion gap [Moles/Vol] 8 mmol/L Low 9-17 [facility] Comment on above: Performed By: #### C P, CDP #### [address] [place], [place] [phone] Incident Coordinator: Stu Baires MD AST [Catalytic activity/Vol] 29 U/L Normal <32 [facility] Comment on above: Performed By: #### C P, CDP #### [address] [place], [place] [phone] Incident Coordinator: Stu Baires MD Bilirubin [Mass/Vol] 0.5 mg/dL Normal 0.3-1.2 [facility] Comment on above: Performed By: #### C P, CDP #### [facility] [address] [place] [address] Dr. [place], [place] [id number] Incident Coordinator: Stu Baires MD BUN/CRE Ratio 18 Normal 9-20 [facility] Comment on above: Performed By: #### C P, CDP #### [facility] [address] [place] [address] Dr. [place], [place] [phone] Incident Coordinator: Stu Baires MD Calcium [Mass/Vol] 8.4 mg/dL Low 8.6-10.4 [facility] Comment on above: Performed By: #### C P, CDP #### [facility] [address] [place] [address] Dr. [place], [place] [phone] Incident Coordinator: Stu Baires MD Chloride [Moles/Vol] 105 mmol/L Normal 98-107 [facility] Comment on above: Performed By: #### C P, CDP #### [facility] [address] [place], [place] [phone] Incident Coordinator: Stu Baires MD CO2 [Moles/Vol] 23 mmol/L Normal 20-31 [facility] Comment on above: Performed By: #### C P, CDP #### [facility] [address] [place] [phone] Incident Coordinator: Stu Baires MD Creatinine [Mass/Vol] 0.49 mg/dL Low 0.50-0.90 [facility] Comment on above: Performed By: #### C P, CDP #### [facility] [address] [place] [address] Incident Coordinator: Stu Baires MD GFR/1.73 sq M.predicted among non-blacks MDRD (S/P/Bld) [Vol rate/Area] mL/min/{1.73_m2} Normal >60 [facility] Comment on above: Result Comment: These results [...] Performed By: #### C P, CDP #### [facility] [address] [place] [id number] Incident Coordinator: Stu Baires MD Glucose [Mass/Vol] 102 mg/dL High 70-99 [facility] Comment on above: Performed By: #### C P, CDP #### [facility] [address] [place] [phone] Incident Coordinator: Stu Baires MD Potassium [Moles/Vol] 3.6 mmol/L Low 3.7-5.3 [facility] Comment on above: Performed By: #### C P, CDP #### [facility] [address] [place] [address] Dr. [place], [place] [phone] Incident Coordinator: Stu Baires MD Protein [Mass/Vol] 6.2 g/dL Low 6.4-8.3 [facility] Comment on above: Performed By: #### C P, CDP #### [facility] [address] [place] [address] Dr. [place], [place] [phone] Incident Coordinator: Stu Baires MD Sodium [Moles/Vol] 136 mmol/L Normal 135-144 [facility] Comment on above: Performed By: #### C P, CDP #### [facility] [address] [place] [address] Dr. [place], [place] [phone] Incident Coordinator: Stu Baires MD Urea nitrogen [Mass/Vol] 9 mg/dL Normal 6-20 [facility] Comment on above: Performed By: #### C P, CDP #### [address] [place], [place] [phone] Incident Coordinator: Stu Baires MD Lactic Acidon 0 Lactate [Moles/Vol] 1.0 mmol/L Normal 0.5-2.2 [facility] Comment on above: Performed By: #### L ACTIC #### [facility] [address] [place] [address] Dr. [place], [place] [phone] Incident Coordinator: Stu Baires MD Urinalysis, Routineon 2022 Bilirubin, SemiQt,Ur Negative Normal NEG [facility] Comment on above: Performed By: #### U MICAO, UA #### [facility] [address] [place] [address] Dr. [place], [place] [phone] Incident Coordinator: Stu Baires MD Blood, Urine Negative Normal NEG [facility] Comment on above: Performed By: #### U MICAO, UA #### [facility] [address] [place], [place] [phone] Incident Coordinator: Stu Baires MD Clarity (U) Clear Normal CLEAR [facility] Comment on above: Performed By: #### U MICAO, UA #### [facility] [address] [place], [place] [phone] Incident Coordinator: Stu Baires MD Color (U) Yellow Normal YEL [facility] Comment on above: Performed By: #### U MICAO, UA #### [facility] [address] [place] [address] Dr. [place], [place] [phone] Incident Coordinator: Stu Baires MD Glucose Ql (U) Negative Normal NEG [facility] Comment on above: Performed By: #### U MICAO, UA #### [facility] [address] [place] [address] Dr. [place], [place] [phone] Incident Coordinator: Stu Baires MD Ketones Ql (U) Negative Normal NEG [facility] in [facility] Comment on above: Performed By: #### U MICAO, UA #### [address] [place], [place] [phone] Incident Coordinator: Stu Baires MD Leukocyte esterase Test strip Ql (U) TRACE Abnormal NEG [facility] Comment on above: Performed By: #### U MICAO, UA #### [facility] [address] [place] [address] Dr. [place], [place] [phone] Incident Coordinator: Stu Baires MD Nitrite,Ur Negative Normal NEG [facility] Comment on above: Performed By: #### U MICAO, UA #### [facility] [address] [place] [address] Dr. [place], [place] [phone] Incident Coordinator: Stu Baires MD PH,Ur 6.0 Normal 5.0-9.0 [facility] Comment on above: Performed By: #### U MICAO, UA #### [facility] [address] [place], [place] [phone] Incident Coordinator: Stu Baires MD Protein Ql (U) 1+ Abnormal NEG [facility] Comment on above: Performed By: #### U MICAO, UA #### [facility] [address] [place], [place] [phone] Incident Coordinator: Stu Baires MD Spec. [place],Ur >1.030 High 1.010-1.020 [facility] Comment on above: Performed By: #### U TISHAO, UA #### [facility] [address] [place] [address] Dr. [place], [place] [phone] Incident Coordinator: Stu Baires MD Urobilinogen,Ur Normal Normal NORM [facility] Comment on above: Performed By: #### U TISHAO, UA #### [facility] [address] [place] [address] Dr. [place], [place] [phone] Incident Coordinator: Stu Baires MD Urinalysis,Microon 3 Bacteria 2+ Abnormal NONE [facility] Comment on above: Performed By: #### U TISHAO, UA #### [facility] [address] [place] [address] Dr. [place], [place] [phone] Incident Coordinator: Stu Baires MD Epithelial cells LM Ql (Urine sed) 2 TO 5 Normal 0-25 [facility] Comment on above: Performed By: #### U MICAO, UA #### [facility] [address] [place], [place] [phone] Incident Coordinator: Stu Baires MD Mucus Strands 1+ Abnormal NONE [facility] Comment on above: Performed By: #### U MICAO, UA #### [facility] [address] [place], [place] [phone] Incident Coordinator: Stu Baires MD Urine RBC's None Normal 0-2 [facility] Comment on above: Performed By: #### U MICAO, UA #### [facility] [address] [place], [place] [phone] Incident Coordinator: Stu Baires MD Urine WBC's 2 TO 5 Normal 0-5 [facility] Comment on above: Performed By: #### U TISHAO, UA #### [facility] [address] [place] [address] Incident Coordinator: Stu Baires MD FREE T3on 06-19-2022 FREE T3 4.07 pg/mlL Critically high 2.18-3.98 [facility] Comment on above: Performed By: #### T 4, FT3, TSH ####[facility] [address] [place] [address]Dr. Vicenta Bryant T4on 06-19-2022 T4 [Mass/Vol] 7.70 ug/dL Normal 4.80-13.90 [facility] Comment on above: Performed By: #### T 4, FT3, TSH ####[facility] [address] [place] [address]Dr. Vicenta Bryant TSHon 06-19-2022 TSH 4.022 uIU/mL Critically high 0.358-3.740 [facility] Comment on above: Performed By: #### T 4, FT3, TSH ####[facility] [address] [place] [address]Dr. Vicenta Bryant FREE T3on 05-23-2022 FREE T3 3.87 pg/mlL Normal 2.18-3.98 [facility] Comment on above: Performed By: #### T SH, FT3, T4 #### [facility] [address] [place] [address] [address] Vicenta Bryant T4on 05-23-2022 T4 [Mass/Vol] 7.00 ug/dL Normal 4.80-13.90 [facility] Comment on above: Performed By: #### T SH, FT3, T4 #### [facility] [address] [place] [address] [address] Vicenta Bryant TSHon 05-23-2022 TSH 4.402 uIU/mL Critically high 0.358-3.740 [facility] Comment on above: Performed By: #### T SH, FT3, T4 #### [facility] [address] [place], [place] [address] Dr. Vicenta Bryant MG MAMM DX FLAQUITA 3D FU CADon 0 03-28-2022 MG MAMM DX FLAQUITA 3D FU CAD Patient: YAS KURTZ Exam Date: 03/28/2022 : 1960 Gender:F Ordering : DR BULMARO PADRON . Admission #: [id number] Family : Order #: [id number] CLICK HERE TO VIEW EXAM RADIOLOGY REPORT [...] lung cancer at age 57. LOCATION: [facility] BREAST COMPOSITION: Almost entirely fatty. FINDINGS: [...] Cobian M.D. on 03/28/2022 at 11:35 Normal [facility] OCC BLD IMMUNO SCREENon 03-15 OCCULT BLOOD Negative Normal NEGATIVE [facility] Comment on above: Performed By: #### O BSCRN #### [facility] [address] [place], [place] [address] Dr. Vicenta Bryant INSULINon 03-07-2022 Insulin 10.8 uIU/mL Normal 2.6-24.9 [facility] Comment on above: Performed By: #### I NSULIN #### [facility] [address] [place], [place] [address] Dr. Vicenta Bryant T4, T3U, FTI LABCORPon 03-07 Free Thyroxine Index 1.9 Normal 1.2-4.9 [facility] Comment on above: Performed By: #### T HYLC ####[facility] [address] [place], [place] [address]LaPablo Bryant T3 Uptake 25 % Normal 24-39 [facility] Comment on above: Performed By: #### T HYLC ####[facility] [address] [place], [place] [address]FtDr. Vicenta Bryant T4 [Mass/Vol] 7.6 ug/dL Normal 4.5-12.0 [facility] Comment on above: Performed By: #### T HYLC ####[facility] [address] [place], [place] [address]AfDr. Vicenta Bryant VIT D 25-OH LABCORPon 2021 Vitamin D, 25-Hydroxy 24.3 ng/mL Critically low 30.0-100.0 [facility] Comment on above: Result Comment: Susi min D deficiency has been defined by the [place] [employer] and an Endocrine Society practice guideline as a level of serum 25-OH vitamin D less than 20 ng/mL (1,2). The Endocrine Society went on to further define vitamin D insufficiency as a level between 21 and 29 ng/mL (2). 1. IOM ([place] [employer]). 2010. Dietary reference intakes for calcium and D. [place]: The National Academies Press. 2. Dea MF, Angelika NC, Shawn SHEARER, et al. Evaluation, treatment, and prevention of vitamin D deficiency: an Endocrine Society clinical practice guideline. JCEM. 2010; 96(7):1911-30. Performed By: #### V ITADLC ####[facility] [address] [place] [id number]. Vicenta Bryant CBC AUTO DIFFon 03-06-2022 BASO # 0.0 103/ul Normal 0.0-0.1 [facility] Comment on above: Performed By: #### C BC #### [facility] [address] [place] [address] Dr. Vicenta Bryant Basophils/100 WBC (Bld) 0.6 % Normal 0.2-2.0 [facility] [place] [facility] Comment on above: Performed By: #### C BC #### [facility] [address] [place] [address] Dr. Vicenta Bryant EO # 0.1 103/ul Normal 0.0-0.7 [facility] [place] [facility] Comment on above: Performed By: #### C BC #### [facility] [address] [place] [address] Dr. Vicenta Bryant Eosinophils/100 WBC (Bld) 1.1 % Normal 0.9-7.0 [facility] Comment on above: Performed By: #### C BC #### [facility] [address] [place] [address] Dr. Viecnta Bryant Erythrocyte distribution width (RBC) [Ratio] 12.6 % Normal 11.0-15.0 [facility] Comment on above: Performed By: #### C BC #### [facility] [address] [place] [address] Dr. Vicenta Bryant Hematocrit (Bld) [Volume fraction] 41.1 % Normal 36.0-48.0 [facility] Comment on above: Performed By: #### C BC #### [facility] [address] [place] [address] Dr. Vicenta Bryant Hemoglobin (Bld) [Mass/Vol] 13.4 g/dL Normal 12.0-16.0 [facility] [place] [facility] Comment on above: Performed By: #### C BC #### [facility] [address] [place] [address] Dr. Vicenta Bryant IG # 0.01 10e3/ul Normal 0.00-0.03 [facility] Comment on above: Performed By: #### C BC #### [facility] [address] [place] [address] Dr. Vicenta Bryant IG % 0.2 % Normal 0.0-0.5 [facility] Comment on above: Performed By: #### C BC #### [facility] [address] [place] [address] Dr. Vicenta Bryant LYMPH # 1.6 103/ul Normal 1.2-3.8 [facility] Comment on above: Performed By: #### C BC #### [facility] [address] [place] [address] Dr. Vicenta Bryant Lymphocytes/100 WBC (Bld) 25.6 % Normal 20.5-60.0 [facility] Comment on above: Performed By: #### C BC #### [facility] [address] [place] [address] Dr. Vicenta Bryant MANUAL DIFF REQ NO Normal [facility] Comment on above: Performed By: #### C BC #### [facility] [address] [place] [address] Dr. Vicenta Bryant MCH (RBC) [Entitic mass] 31.0 pg Normal 26.7-34.0 [facility] Comment on above: Performed By: #### C BC #### [facility] [address] [place] [address] Dr. Vicenta Bryant MCHC (RBC) [Mass/Vol] 32.6 g/dL Normal 29.9-35.2 [facility] Comment on above: Performed By: #### C BC #### [facility] [address] [place] [address] Dr. Vicenta Bryant MCV (RBC) [Entitic vol] 95.1 fL Normal 81.0-99.0 [facility] Comment on above: Performed By: #### C BC #### [facility] [address] [place] [address] Dr. Vicenta Bryant MONO # 0.5 103/ul Normal 0.3-0.8 [facility] Comment on above: Performed By: #### C BC #### [facility] [address] [place] [address] Dr. Vicenta Bryant Monocytes/100 WBC (Bld) 7.8 % Normal 1.7-12.0 [facility] Comment on above: Performed By: #### C BC #### [facility] [address] [place] [address] Dr. Vicenta Bryant NEUT # 4.0 103/ul Normal 1.4-6.5 [facility] Comment on above: Performed By: #### C BC #### [facility] [address] [place] [address] Dr. Vicenta Bryant Neutrophils/100 WBC (Bld) 64.7 % Normal 43.0-75.0 [facility] Comment on above: Performed By: #### C BC #### [facility] [address] [place] [address] Dr. Vicenta Bryant Platelet mean volume (Bld) [Entitic vol] 10.8 fL Normal 9.5-13.5 [facility] Comment on above: Performed By: #### C BC #### [facility] [address] [place] [address] Dr. Vicenta Bryant PLT 210 103/ul Normal 150-450 [facility] Comment on above: Performed By: #### C BC #### [facility] [address] [place] [address] Dr. Vicenta Bryant RBC 4.32 106/ul Normal 4.20-5.40 [facility] Comment on above: Performed By: #### C BC #### [facility] [address] [place] [address] Dr. Vicenta Bryant WBC 6.2 103/ul Normal 4.0-11.0 [facility] Comment on above: Performed By: #### C BC #### [facility] [address] [place] [address] Dr. Vicenta Bryant GLYCOHEMOGLOBIN A1Con 2021 ADA RECOMMENDATION SEE BELOW Normal [facility] Comment on above: Result Comment: ADA RECOMMENDED LIMIT 4.0 - 6.0 ADA THERAPEUTIC TARGET < 7.0 ACTION SUGGESTED > 7.0 Performed By: #### A 1C #### [facility] [address] [place] [address] Dr. Vicenta Bryant Glucose [Mass/Vol] 91 mg/dL Normal [facility] Comment on above: Performed By: #### A 1C #### [place] [facility] [facility] [address] [place], [place] [address] Dr. Vicenta Bryant HbA1c (Bld) [Mass fraction] 4.8 % Normal 4.5-6.2 [facility] Comment on above: Performed By: #### A 1C #### [facility] [address] [place], [place] [address] Dr. Vicenta Bryant IRONon 03-06-2022 Iron [Mass/Vol] 73.0 ug/dL Normal 50.0-170.0 [facility] Comment on above: Performed By: #### B 12FOL, IRON ####[facility] [address] [place], [place] [address]RaPablo Bryant LIPID PROFILEon 03-06-2022 CHOL-HDL RATIO NORM SEE BELOW Normal [facility] Comment on above: Result Comment: 3.3 - 4.4 LOW RISK 4.4 - 7.1 AVERAGE RISK 7.1 - 11.0 MODERATE RISK >11.0 HIGH RISK Performed By: #### L IPID, TSH, CMP ####[facility] [address] [place], [place] [address]Ca. Vicenta Bryant Cholesterol [Mass/Vol] 134 mg/dL Normal <=200 [facility] Comment on above: Performed By: #### L IPID, TSH, CMP ####[facility] [address] [place], [place] [address]FgPablo Bryant Cholesterol in HDL [Mass/Vol] 41 mg/dL Normal 40-60 [facility] Comment on above: Performed By: #### L IPID, TSH, CMP ####[facility] [address] [place], [place] [address]CxPablo Bryant Cholesterol in LDL [Mass/Vol] 81.2 mg/dL Normal [facility] Comment on above: Performed By: #### L IPID, TSH, CMP ####[facility] [address] [place], [place] [address]Ee. Vicenta Bryant Cholesterol.total/C holesterol in HDL [Mass ratio] 3.3 {ratio} Normal [facility] Comment on above: Performed By: #### L IPID, TSH, CMP ####[facility] [address] [place] [address]Dr. Vicenta Bryant HDL NORMAL > or = 60 mg/dl - LO W CARDIOVASCULAR RISK <40 mg/dl - HIGH CARDIOVASCULAR RISK Normal [facility] Comment on above: Performed By: #### L IPID, TSH, CMP ####[facility] [address] [place] [address]Dr. Vicenta Bryant LDL CALC NORMAL SEE BELOW Normal [facility] Comment on above: Result Comment: <100 mg/dl OPTIMAL 100 - 129 mg/dl NEAR OR ABOVE OPTIMAL 130 - 159 mg/dl BORDERLINE HIGH 160 - 189 mg/dl HIGH >190 mg/dl VERY HIGH Performed By: #### L IPID, TSH, CMP ####[facility] [address] [place] [address]Dr. Vicenta Bryant Triglyceride [Mass/Vol] 59 mg/dL Normal <=150 [facility] Comment on above: Performed By: #### L IPID, TSH, CMP ####[facility] [address] [place], [place] [address]Dr. Vicenta Bryant VLDL CALC 11.8 mg/dL Normal [facility] Comment on above: Performed By: #### L IPID, TSH, CMP ####[facility] [address] [place] [address]Dr. Vicenta Bryant PROF 14(COMP METB)on 022 Albumin [Mass/Vol] 3.7 g/dL Normal 3.4-5.0 [facility] Comment on above: Performed By: #### L IPID, TSH, CMP ####[facility] [address] [place] [address]Dr. Vicenta Bryant Albumin/Globulin [Mass ratio] 1.1 {ratio} Normal [facility] Comment on above: Performed By: #### L IPID, TSH, CMP ####[facility] [address] [place] [address]Dr. Vicenta Bryant ALP [Catalytic activity/Vol] 115 U/L Normal 46-116 [facility] Comment on above: Performed By: #### L IPID, TSH, CMP ####[facility] [address] [place] [address]Dr. Vicenta Bryant ALT [Catalytic activity/Vol] 38 U/L Normal 14-59 [facility] [place] [facility] Comment on above: Performed By: #### L IPID, TSH, CMP ####[facility] [address] [place], [place] [address]Dr. Vicenta Bryant Anion gap [Moles/Vol] 12.4 mmol/L Normal [facility] Comment on above: Performed By: #### L IPID, TSH, CMP ####[facility] [address] [place], [place] [address]Dr. Vicenta Bryant AST [Catalytic activity/Vol] 27 U/L Normal 15-37 [facility] Comment on above: Performed By: #### L IPID, TSH, CMP ####[facility] [address] [place], [place] [address]Dr. Vicenta Bryant Bilirubin [Mass/Vol] 0.3 mg/dL Normal 0.2-1.0 [facility] Comment on above: Performed By: #### L IPID, TSH, CMP ####[facility] [address] [place], [place] [address]Dr. Vicenta Bryant Calcium [Mass/Vol] 8.9 mg/dL Normal 8.5-10.1 [facility] Comment on above: Performed By: #### L IPID, TSH, CMP ####[facility] [address] [place], [place] [address]Dr. Vicenta Bryant Chloride [Moles/Vol] 104 mmol/L Normal 98-107 [facility] [place] [facility] Comment on above: Performed By: #### L IPID, TSH, CMP ####[facility] [address] [place], [place] [address]Dr. Vicenta Bryant CO2 [Moles/Vol] 27.8 mmol/L Normal 21.0-32.0 [facility] Comment on above: Performed By: #### L IPID, TSH, CMP ####[facility] [address] [place] [id number]. Vicenta Bryant Creatinine [Mass/Vol] 0.53 mg/dL Critically low 0.55-1.02 [facility] [place] [facility] Comment on above: Performed By: #### L IPID, TSH, CMP ####[facility] [address] [place] [address]Dr. Vicenta Bryant EGFR-AF TURKISH >60 Normal >=60 [facility] Comment on above: Performed By: #### L IPID, TSH, CMP ####[facility] [address] [place] [address]Dr. Vicenta Bryant EGFR-NON AF TURKISH >60 Normal >=60 [facility] Comment on above: Performed By: #### L IPID, TSH, CMP ####[facility] [address] [place] [address]Dr. Vicenta Manny Globulin (S) [Mass/Vol] 3.3 g/dL Normal [facility] Comment on above: Performed By: #### L IPID, TSH, CMP ####[facility] [address] [place] [address]Dr. Vicenta Bryant Glucose [Mass/Vol] 88 mg/dL Normal 74-106 [facility] Comment on above: Performed By: #### L IPID, TSH, CMP ####[facility] [address] [place], [place] [address]Dr. Vicenta Bryant Potassium [Moles/Vol] 4.4 mmol/L Normal 3.5-5.1 [facility] [place] [facility] Comment on above: Performed By: #### L IPID, TSH, CMP ####[facility] [address] [place], [place] [address]Dr. Vicenta Bryant Protein [Mass/Vol] 7.0 g/dL Normal 6.4-8.2 [facility] Comment on above: Performed By: #### L IPID, TSH, CMP ####[facility] [address] [place] [address]Dr. Vicenta Bryant Sodium [Moles/Vol] 139 mmol/L Normal 136-145 [facility] Comment on above: Performed By: #### L IPID, TSH, CMP ####[facility] [address] [place] [address]Dr. Vicenta Bryant Urea nitrogen [Mass/Vol] 10.0 mg/dL Normal 7.0-18.0 [facility] Comment on above: Performed By: #### L IPID, TSH, CMP ####[facility] [address] [place] [address]Dr. Jocydawn Manny Urea nitrogen/Creatinine [Mass ratio] 18.8 mg/mg Normal [facility] Comment on above: Performed By: #### L IPID, TSH, CMP ####[facility] [address] [place] [address]Dr. Vicenta Manny TSHon 03-06-2022 TSH 4.364 uIU/mL Critically high 0.358-3.740 [facility] Comment on above: Performed By: #### L IPID, TSH, CMP ####[facility] [address] [place] [address]Dr. Vicenta Bryant VIT B12 AND FOLATEon 022 Cobalamin (Vitamin B12) [Mass/Vol] 761.0 pg/mL Normal 193.0-986.0 [facility] Comment on above: Performed By: #### B 12FOL, IRON ####[facility] [address] [place] [address]Dr. Vicenta Manny FOLATE 15.40 ng/mL Normal 8.60-58.90 [facility] Comment on above: Performed By: #### B 12FOL, IRON ####[facility] [address] [place] [address]Dr. Vicenta Manny MAMMO POST BIOPSY LEFTon MAMMO POST BIOPSY LEFT Patient: YAS KURTZ Exam Date: 07/25/2021 : 1960 Gender:F Ordering : DR BULMARO PADRON . Admission #: [id number] Family : Order #: [id number] CLICK HERE TO VIEW EXAM This report [...] Cobian M.D. on 08/03/2021 at 07:08 Normal [facility] US VAC ASST BX BRST LT W CLI Aryan 07-25-2021 US VAC ASST BX BRST LT W CLIP Patient: YAS KURTZ Exam Date: 07/25/2021 : 1960 Gender:F Ordering : DR BULMARO PADRON . Admission #: [id number] Family : Order #: [id number] CLICK HERE TO VIEW EXAM This report [...] M.D. on 08/03/2021 at 07:07 Normal [facility] MAMM LT DIAG W CADon 01-0 MG MAMM LT DIAG W CAD Patient: YAS KURTZ Exam Date: 07/20/2021 : 1960 Gender:F Ordering : DR UBLMARO PADRON . Admission #: [id number] Family : Order #: [id number] CLICK HERE TO VIEW EXAM RADIOLOGY REPORT [...] lung cancer at age 57. LOCATION: [facility] BREAST COMPOSITION: Almost entirely fatty. FINDINGS: [...] M.D. on 07/20/2021 at 15:20 Normal [facility] US BREAST LEFT LIMITEDon US BREAST LEFT LIMITED Patient: YAS KURTZ Exam Date: 07/20/2021 : 1960 Gender:F Ordering : DR BULMARO PADRON . Admission #: [id number] Family : Order #: [id number] CLICK HERE TO VIEW EXAM RADIOLOGY REPORT [...] lung cancer at age 57. LOCATION: [facility] BREAST COMPOSITION: Almost entirely fatty. FINDINGS: [...] Cobian M.D. on 07/20/2021 at 15:20 Normal [facility] JOSE Antinuclear Antibodieson 08-08-2020 JOSE IFA Note 1 Normal . [facility] Comment on above: Order Comment: Speci men Comment: Test(s) 654666-Rtky-Y0 COMMERCIAL LOAN COLLECTION OFFICER (Fibrillarin)(RDL) Specimen Comment: was developed and its performance characteristics Specimen Comment: determined by [facility]. It has not been cleared or approved Specimen Comment: by the Food and Drug Administration. Specimen Comment: Test(s) 297208-Bdvi-UL/Scl-75 Ab (RDL) Specimen Comment: was developed and its performance characteristics Specimen Comment: determined by [facility]. It has not been cleared or approved Specimen Comment: by the Food and Drug Administration. Result Comment: A po sitive JSOE result may occur in healthy individuals (low titer) or be associated with a variety of diseases. See interpretation chart which is not all inclusive: Pattern Antigen Detected Suggested Disease Association Homogeneous DNA(ds,ss), SLE - High titers Nucleosomes, Histones Drug-induced SLE Speckled Sm, COMMERCIAL LOAN COLLECTION OFFICER, SCL-70, SLE,MCTD,PSS (diffuse form), SS-A/SS-B Sjogrens Nucleolar SCL-70, PM-1/SCL High titers Scleroderma, PM/DM Centromere Centromere PSS (limited form) w/Crest syndrome variable Nuclear Dot [id number] Primary Biliary Cirrhosis Nuclear GP210, Primary Biliary Cirrhosis Membrane rosi A,B,C Performed at: [facility] [employer] [id number] Incident Coordinator: David Pace PhD, Phone: [phone] Performed By: #### A NTIR, RNA POLYMR, HEP C, ANTI TH TO, HBCAB, PM-SCL ABS, U3 COMMERCIAL LOAN COLLECTION OFFICER, HBSAG, HBSAB, JOSE #### [facility] , #### CRP, CK, CMP #### [address] Antinuclear Abs, IFA Positive Critically abnormal . [facility] Comment on above: Order Comment: Speci men Comment: Test(s) 977422-Jtti-C3 COMMERCIAL LOAN COLLECTION OFFICER (Fibrillarin)(RDL) Specimen Comment: was developed and its performance characteristics Specimen Comment: determined by [employer]. It has not been cleared or approved Specimen Comment: by the Food and Drug Administration. Specimen Comment: Test(s) 568787-Cbif-IM/Scl-75 Ab (RDL) Specimen Comment: was developed and its performance characteristics Specimen Comment: determined by [employer]. It has not been cleared or approved Specimen Comment: by the Food and Drug Administration. Result Comment: Nega tive <1:80 Borderline 1:80 Positive >1:80 Performed By: #### A NTIR, RNA POLYMR, HEP C, ANTI TH TO, HBCAB, PM-SCL ABS, U3 COMMERCIAL LOAN COLLECTION OFFICER, HBSAG, HBSAB, JOSE #### [facility] , #### CRP, CK, CMP #### [facility] [address] Speckled Pattern 1:[address] High . [facility] Comment on above: Order Comment: Speci men Comment: Test(s) 521727-Evas-X9 COMMERCIAL LOAN COLLECTION OFFICER (Fibrillarin)(RDL) Specimen Comment: was developed and its performance characteristics Specimen Comment: determined by [facility]. It has not been cleared or approved Specimen Comment: by the Food and Drug Administration. Specimen Comment: Test(s) 136934-Asyb-PO/Scl-75 Ab (RDL) Specimen Comment: was developed and its performance characteristics Specimen Comment: determined by [facility]. It has not been cleared or approved Specimen Comment: by the Food and Drug Administration. Performed By: #### A NTIR, RNA POLYMR, HEP C, ANTI TH TO, HBCAB, PM-SCL ABS, U3 COMMERCIAL LOAN COLLECTION OFFICER, HBSAG, HBSAB, JOSE #### [facility] , #### CRP, CK, CMP #### [facility] [address] [place] [address] [place] Anti-RNPon 08-08-2020 Anti-COMMERCIAL LOAN COLLECTION OFFICER <0.2 Normal 0.0-0.9 [facility] Comment on above: Order Comment: Speci men Comment: Test(s) 577355-Efcb-M9 COMMERCIAL LOAN COLLECTION OFFICER (Fibrillarin)(RDL) Specimen Comment: was developed and its performance characteristics Specimen Comment: determined by [facility]. It has not been cleared or approved Specimen Comment: by the Food and Drug Administration. Specimen Comment: Test(s) 116719-Twpi-JN/Scl-75 Ab (RDL) Specimen Comment: was developed and its performance characteristics Specimen Comment: determined by [facility]. It has not been cleared or approved Specimen Comment: by the Food and Drug Administration. Result Comment: Perf ormed at: - [facility] [address] [id number] Incident Coordinator: David Pace PhD, Phone: [phone] Performed By: #### A NTIR, RNA POLYMR, HEP C, ANTI TH TO, HBCAB, PM-SCL ABS, U3 COMMERCIAL LOAN COLLECTION OFFICER, HBSAG, HBSAB, JOSE #### [facility] , #### CRP, CK, CMP #### [address] C-Reactive Proteinon 021 CRP [Mass/Vol] 0.6 mg/dL Normal 0.0-1.0 [facility] Comment on above: Result Comment: PERF ORMED BY: [place] [address] PATHOLOGIST SUPERVISING FILM OR VIDEOTAPE EDITOR BEAU JOHNSON M.D. Performed By: #### A NTIR, RNA POLYMR, HEP C, ANTI TH TO, HBCAB, PM-SCL ABS, U3 COMMERCIAL LOAN COLLECTION OFFICER, HBSAG, HBSAB, JOSE #### [facility] , #### CRP, CK, CMP #### [address] Complement C3on 08-08-2020 Complement C3 125 mg/dL Normal 82-167 [facility] Comment on above: Result Comment: Perf ormed at: - [facility] [address] [id number] Incident Coordinator: David Pace PhD, Phone: [phone] Performed By: #### A NTIR, RNA POLYMR, HEP C, ANTI TH TO, HBCAB, PM-SCL ABS, U3 COMMERCIAL LOAN COLLECTION OFFICER, HBSAG, HBSAB, JOSE #### [facility] , #### CRP, CK, CMP #### [address] Complement C4on 08-08-2020 Complement C4 17 mg/dL Normal 12-38 [facility] Comment on above: Performed By: #### A NTIR, RNA POLYMR, HEP C, ANTI TH TO, HBCAB, PM-SCL ABS, U3 COMMERCIAL LOAN COLLECTION OFFICER, HBSAG, HBSAB, JOSE #### [facility] , #### CRP, CK, CMP #### [address] Complement Total (CH50)on Complement Total (CH50) >60 Normal >41 [facility] Comment on above: Result [...] determine out of range values. Performed at: [facility] [employer] [id number] Incident Coordinator: David Pace PhD, Phone: [phone] PERFORMED BY: [place] [address] PATHOLOGIST SUPERVISING FILM OR VIDEOTAPE EDITOR BEAU JOHNSON M.D. Performed By: #### A NTIR, RNA POLYMR, HEP C, ANTI TH TO, HBCAB, PM-SCL ABS, U3 COMMERCIAL LOAN COLLECTION OFFICER, HBSAG, HBSAB, JOSE #### [facility] , #### CRP, CK, CMP #### [address] Complete Blood Count Auto Di ffon 08-08-2020 Basophils (Bld) [#/Vol] 0.0 10*3/uL Normal 0.0-0.2 [facility] Comment on above: Performed By: #### A NTIR, RNA POLYMR, HEP C, ANTI TH TO, HBCAB, PM-SCL ABS, U3 COMMERCIAL LOAN COLLECTION OFFICER, HBSAG, HBSAB, JOSE #### [facility] , #### CRP, CK, CMP #### [address] Basophils/100 WBC (Bld) 0.4 % Normal . [facility] Comment on above: Performed By: #### A NTIR, RNA POLYMR, HEP C, ANTI TH TO, HBCAB, PM-SCL ABS, U3 COMMERCIAL LOAN COLLECTION OFFICER, HBSAG, HBSAB, JOSE #### [facility] , #### CRP, CK, CMP #### [address] Eosinophils (Bld) [#/Vol] 0.0 10*3/uL Normal 0.0-0.45 [facility] Comment on above: Performed By: #### A NTIR, RNA POLYMR, HEP C, ANTI TH TO, HBCAB, PM-SCL ABS, U3 COMMERCIAL LOAN COLLECTION OFFICER, HBSAG, HBSAB, JOSE #### [facility] , #### CRP, CK, CMP #### [address] Eosinophils/100 WBC (Bld) 0.6 % Normal . [facility] Comment on above: Performed By: #### A NTIR, RNA POLYMR, HEP C, ANTI TH TO, HBCAB, PM-SCL ABS, U3 COMMERCIAL LOAN COLLECTION OFFICER, HBSAG, HBSAB, JOSE #### [facility] , #### CRP, CK, CMP #### [address] Erythrocyte distribution width (RBC) [Ratio] 12.7 % Normal 11.9-15.3 [facility] Comment on above: Performed By: #### A NTIR, RNA POLYMR, HEP C, ANTI TH TO, HBCAB, PM-SCL ABS, U3 COMMERCIAL LOAN COLLECTION OFFICER, HBSAG, HBSAB, JOSE #### [facility] , #### CRP, CK, CMP #### [address] Hematocrit (Bld) [Volume fraction] 40.9 % Normal 34.0-46.4 [facility] Comment on above: Performed By: #### A NTIR, RNA POLYMR, HEP C, ANTI TH TO, HBCAB, PM-SCL ABS, U3 COMMERCIAL LOAN COLLECTION OFFICER, HBSAG, HBSAB, JOSE #### [facility] , #### CRP, CK, CMP #### [address] Hemoglobin (Bld) [Mass/Vol] 13.5 g/dL Normal 11.8-15.4 [facility] Comment on above: Performed By: #### A NTIR, RNA POLYMR, HEP C, ANTI TH TO, HBCAB, PM-SCL ABS, U3 COMMERCIAL LOAN COLLECTION OFFICER, HBSAG, HBSAB, JOSE #### [facility] , #### CRP, CK, CMP #### [address] Lymphocytes (Bld) [#/Vol] 1.7 10*3/uL Normal 1.00-4.8 [facility] Comment on above: Performed By: #### A NTIR, RNA POLYMR, HEP C, ANTI TH TO, HBCAB, PM-SCL ABS, U3 COMMERCIAL LOAN COLLECTION OFFICER, HBSAG, HBSAB, JOSE #### [facility] , #### CRP, CK, CMP #### [address] Lymphocytes/100 WBC (Bld) 25.7 % Normal . [facility] Comment on above: Performed By: #### A NTIR, RNA POLYMR, HEP C, ANTI TH TO, HBCAB, PM-SCL ABS, U3 COMMERCIAL LOAN COLLECTION OFFICER, HBSAG, HBSAB, JOSE #### [facility] , #### CRP, CK, CMP #### [address] MCH (RBC) [Entitic mass] 32.9 g/dL Normal 32.0-35.0 [facility] Comment on above: Performed By: #### A NTIR, RNA POLYMR, HEP C, ANTI TH TO, HBCAB, PM-SCL ABS, U3 COMMERCIAL LOAN COLLECTION OFFICER, HBSAG, HBSAB, JOSE #### [facility] , #### CRP, CK, CMP #### [address] MCH (RBC) [Entitic mass] 31.1 pg Normal 24.7-34.3 [facility] Comment on above: Performed By: #### A NTIR, RNA POLYMR, HEP C, ANTI TH TO, HBCAB, PM-SCL ABS, U3 COMMERCIAL LOAN COLLECTION OFFICER, HBSAG, HBSAB, JOSE #### [facility] , #### CRP, CK, CMP #### [address] MCV (RBC) [Entitic vol] 94.4 fL Normal 80-100 [facility] Comment on above: Performed By: #### A NTIR, RNA POLYMR, HEP C, ANTI TH TO, HBCAB, PM-SCL ABS, U3 COMMERCIAL LOAN COLLECTION OFFICER, HBSAG, HBSAB, JOSE #### [facility] , #### CRP, CK, CMP #### [address] Monocytes (Bld) [#/Vol] 0.6 10*3/uL Normal 0.0-0.8 [facility] Comment on above: Performed By: #### A NTIR, RNA POLYMR, HEP C, ANTI TH TO, HBCAB, PM-SCL ABS, U3 COMMERCIAL LOAN COLLECTION OFFICER, HBSAG, HBSAB, JOSE #### [facility] , #### CRP, CK, CMP #### [address] Monocytes/100 WBC (Bld) 8.9 % Normal . [facility] Comment on above: Performed By: #### A NTIR, RNA POLYMR, HEP C, ANTI TH TO, HBCAB, PM-SCL ABS, U3 COMMERCIAL LOAN COLLECTION OFFICER, HBSAG, HBSAB, JOSE #### [facility] , #### CRP, CK, CMP #### [place] [address] [place] Neutrophils (Bld) [#/Vol] 4.2 10*3/uL Normal 1.8-7.7 [facility] Comment on above: Performed By: #### A NTIR, RNA POLYMR, HEP C, ANTI TH TO, HBCAB, PM-SCL ABS, U3 COMMERCIAL LOAN COLLECTION OFFICER, HBSAG, HBSAB, JOSE #### [facility] , #### CRP, CK, CMP #### [address] Neutrophils/100 WBC (Bld) 64.4 % Normal . [facility] Comment on above: Performed By: #### A NTIR, RNA POLYMR, HEP C, ANTI TH TO, HBCAB, PM-SCL ABS, U3 COMMERCIAL LOAN COLLECTION OFFICER, HBSAG, HBSAB, JOSE #### [facility] , #### CRP, CK, CMP #### [address] Nucleated RBC/100 WBC (Bld) [Ratio] 0.1 % Normal 0-0.5 [facility] Comment on above: Performed By: #### A NTIR, RNA POLYMR, HEP C, ANTI TH TO, HBCAB, PM-SCL ABS, U3 COMMERCIAL LOAN COLLECTION OFFICER, HBSAG, HBSAB, JOSE #### [facility] , #### CRP, CK, CMP #### [address] Platelet mean volume (Bld) [Entitic vol] 9.8 fL Normal 6.3-10.7 [facility] Comment on above: Performed By: #### A NTIR, RNA POLYMR, HEP C, ANTI TH TO, HBCAB, PM-SCL ABS, U3 COMMERCIAL LOAN COLLECTION OFFICER, HBSAG, HBSAB, JOSE #### [facility] , #### CRP, CK, CMP #### [address] Platelets (Bld) [#/Vol] 206 10*3/uL Normal 150-450 [facility] Comment on above: Performed By: #### A NTIR, RNA POLYMR, HEP C, ANTI TH TO, HBCAB, PM-SCL ABS, U3 COMMERCIAL LOAN COLLECTION OFFICER, HBSAG, HBSAB, JOSE #### [facility] , #### CRP, CK, CMP #### [address] RBC (Bld) [#/Vol] 4.33 10*6/uL Normal 3.60-5.00 [facility] Comment on above: Performed By: #### A NTIR, RNA POLYMR, HEP C, ANTI TH TO, HBCAB, PM-SCL ABS, U3 COMMERCIAL LOAN COLLECTION OFFICER, HBSAG, HBSAB, JOSE #### [facility] , #### CRP, CK, CMP #### [address] WBC (Bld) [#/Vol] 6.5 10*3/uL Normal 3.8-11.6 [facility] Comment on above: Performed By: #### A NTIR, RNA POLYMR, HEP C, ANTI TH TO, HBCAB, PM-SCL ABS, U3 COMMERCIAL LOAN COLLECTION OFFICER, HBSAG, HBSAB, JOSE #### [facility] , #### CRP, CK, CMP #### [address] Comprehensive Metabolic Pane lilian 08-08-2020 Albumin [Mass/Vol] 4.1 g/dL Normal 3.2-5.5 [facility] Comment on above: Performed By: #### A NTIR, RNA POLYMR, HEP C, ANTI TH TO, HBCAB, PM-SCL ABS, U3 COMMERCIAL LOAN COLLECTION OFFICER, HBSAG, HBSAB, JOSE #### [facility] , #### CRP, CK, CMP #### [address] Albumin/Globulin [Mass ratio] 1.9 {ratio} Normal [facility] Comment on above: Performed By: #### A NTIR, RNA POLYMR, HEP C, ANTI TH TO, HBCAB, PM-SCL ABS, U3 COMMERCIAL LOAN COLLECTION OFFICER, HBSAG, HBSAB, JOSE #### [facility] , #### CRP, CK, CMP #### [address] ALP [Catalytic activity/Vol] 81 U/L Normal 32-92 [facility] Comment on above: Performed By: #### A NTIR, RNA POLYMR, HEP C, ANTI TH TO, HBCAB, PM-SCL ABS, U3 COMMERCIAL LOAN COLLECTION OFFICER, HBSAG, HBSAB, JOSE #### [facility] , #### CRP, CK, CMP #### [address] ALT [Catalytic activity/Vol] 35 U/L Normal 10-60 [facility] Comment on above: Performed By: #### A NTIR, RNA POLYMR, HEP C, ANTI TH TO, HBCAB, PM-SCL ABS, U3 COMMERCIAL LOAN COLLECTION OFFICER, HBSAG, HBSAB, JOSE #### [facility] , #### CRP, CK, CMP #### [address] AST [Catalytic activity/Vol] 25 U/L Normal 10-42 [facility] Comment on above: Performed By: #### A NTIR, RNA POLYMR, HEP C, ANTI TH TO, HBCAB, PM-SCL ABS, U3 COMMERCIAL LOAN COLLECTION OFFICER, HBSAG, HBSAB, JOSE #### [facility] , #### CRP, CK, CMP #### [address] Bilirubin [Mass/Vol] 0.4 mg/dL Normal 0.3-1.2 [facility] Comment on above: Performed By: #### A NTIR, RNA POLYMR, HEP C, ANTI TH TO, HBCAB, PM-SCL ABS, U3 COMMERCIAL LOAN COLLECTION OFFICER, HBSAG, HBSAB, JOSE #### [facility] , #### CRP, CK, CMP #### [address] Calcium [Mass/Vol] 9.2 mg/dL Normal 8.2-10.2 [facility] Comment on above: Performed By: #### A NTIR, RNA POLYMR, HEP C, ANTI TH TO, HBCAB, PM-SCL ABS, U3 COMMERCIAL LOAN COLLECTION OFFICER, HBSAG, HBSAB, JOSE #### [facility] , #### CRP, CK, CMP #### [address] Chloride [Moles/Vol] 106 mmol/L Normal 95-114 [facility] Comment on above: Performed By: #### A NTIR, RNA POLYMR, HEP C, ANTI TH TO, HBCAB, PM-SCL ABS, U3 COMMERCIAL LOAN COLLECTION OFFICER, HBSAG, HBSAB, JOSE #### [facility] , #### CRP, CK, CMP #### [address] CO2 [Moles/Vol] 28.1 mmol/L Normal 22.0-30.[address] [facility] Comment on above: Performed By: #### A NTIR, RNA POLYMR, HEP C, ANTI TH TO, HBCAB, PM-SCL ABS, U3 COMMERCIAL LOAN COLLECTION OFFICER, HBSAG, HBSAB, JOSE #### [facility] , #### CRP, CK, CMP #### [address] Creatinine [Mass/Vol] 0.64 mg/dL Normal 0.44-1.03 [facility] Comment on above: Performed By: #### A NTIR, RNA POLYMR, HEP C, ANTI TH TO, HBCAB, PM-SCL ABS, U3 COMMERCIAL LOAN COLLECTION OFFICER, HBSAG, HBSAB, JOSE #### [facility] , #### CRP, CK, CMP #### [address] Estimated GFR ( Tari > 60 Normal [facility] Comment on above: Result Comment: GFR estimated reference range: According to KDOQI guidelines, <60 ml/min/1.73m2 is sufficient to diagnose a patient with chronic kidney disease. Performed By: #### A NTIR, RNA POLYMR, HEP C, ANTI TH TO, HBCAB, PM-SCL ABS, U3 COMMERCIAL LOAN COLLECTION OFFICER, HBSAG, HBSAB, JOSE #### [facility] , #### CRP, CK, CMP #### [address] Estimated GFR (Non- Am > 60 Normal [facility] Comment on above: Performed By: #### A NTIR, RNA POLYMR, HEP C, ANTI TH TO, HBCAB, PM-SCL ABS, U3 COMMERCIAL LOAN COLLECTION OFFICER, HBSAG, HBSAB, JOSE #### [facility] , #### CRP, CK, CMP #### [address] Globulin (S) [Mass/Vol] 2.2 g/dL Normal [facility] Comment on above: Performed By: #### A NTIR, RNA POLYMR, HEP C, ANTI TH TO, HBCAB, PM-SCL ABS, U3 COMMERCIAL LOAN COLLECTION OFFICER, HBSAG, HBSAB, JOSE #### [facility] , #### CRP, CK, CMP #### [address] Glucose [Mass/Vol] 87 mg/dL Normal 70-100 [facility] Comment on above: Result Comment: [facility] Glucose Reference Range is dependent on time and content of last meal. Glucose of more than 200 mg/dL in a nonstressed, ambulatory subject supports the diagnosis of Diabetes Mellitus. ADA recommended reference range Performed By: #### A NTIR, RNA POLYMR, HEP C, ANTI TH TO, HBCAB, PM-SCL ABS, U3 COMMERCIAL LOAN COLLECTION OFFICER, HBSAG, HBSAB, JOSE #### [facility] , #### CRP, CK, CMP #### [address] Potassium [Moles/Vol] 4.5 mmol/L Normal 3.5-5.1 [facility] Comment on above: Performed By: #### A NTIR, RNA POLYMR, HEP C, ANTI TH TO, HBCAB, PM-SCL ABS, U3 COMMERCIAL LOAN COLLECTION OFFICER, HBSAG, HBSAB, JOSE #### [facility] , #### CRP, CK, CMP #### [address] Protein [Mass/Vol] 6.3 g/dL Normal 6.1-7.9 [facility] Comment on above: Performed By: #### A NTIR, RNA POLYMR, HEP C, ANTI TH TO, HBCAB, PM-SCL ABS, U3 COMMERCIAL LOAN COLLECTION OFFICER, HBSAG, HBSAB, JOSE #### [facility] , #### CRP, CK, CMP #### [address] Sodium [Moles/Vol] 143 mmol/L Normal 136-146 [facility] Comment on above: Performed By: #### A NTIR, RNA POLYMR, HEP C, ANTI TH TO, HBCAB, PM-SCL ABS, U3 COMMERCIAL LOAN COLLECTION OFFICER, HBSAG, HBSAB, JOSE #### [facility] , #### CRP, CK, CMP #### [address] Urea nitrogen [Mass/Vol] 11 mg/dL Normal 9-23 [facility] Comment on above: Performed By: #### A NTIR, RNA POLYMR, HEP C, ANTI TH TO, HBCAB, PM-SCL ABS, U3 COMMERCIAL LOAN COLLECTION OFFICER, HBSAG, HBSAB, JOSE #### [facility] , #### CRP, CK, CMP #### [address] Creatine Kinaseon 08-08-2020 CK [Catalytic activity/Vol] 39 U/L Normal 22-269 [facility] Comment on above: Result Comment: PERF ORMED BY: [place] [id number] PATHOLOGIST SUPERVISING FILM OR VIDEOTAPE EDITOR BEAU JOHNSON M.D. Performed By: #### A NTIR, RNA POLYMR, HEP C, ANTI TH TO, HBCAB, PM-SCL ABS, U3 COMMERCIAL LOAN COLLECTION OFFICER, HBSAG, HBSAB, JOSE #### [facility] , #### CRP, CK, CMP #### [address] Erythrocyte Sedimentation Ra byron 08-08-2020 ESR (Bld) [Velocity] 4 mm/h Normal 0-29 [facility] Comment on above: Result Comment: PERF ORMED BY: [place] [id number] PATHOLOGIST SUPERVISING FILM OR VIDEOTAPE EDITOR BEAU JOHNSON M.D. Performed By: #### A NTIR, RNA POLYMR, HEP C, ANTI TH TO, HBCAB, PM-SCL ABS, U3 COMMERCIAL LOAN COLLECTION OFFICER, HBSAG, HBSAB, JOSE #### [facility] , #### CRP, CK, CMP #### [address] Hep C Ab w Verificationon HCV AB <0.1 Normal 0.0-0.9 [facility] Comment on above: Order Comment: Speci men Comment: Test(s) [id number] COMMERCIAL LOAN COLLECTION OFFICER (Fibrillarin)(RDL) Specimen Comment: was developed and its performance characteristics Specimen Comment: determined by [facility]. It has not been cleared or approved Specimen Comment: by the Food and Drug Administration. Specimen Comment: Test(s) [id number]-Yhsl-CV/Scl-75 Ab (RDL) Specimen Comment: was developed and its performance characteristics Specimen Comment: determined by [facility]. It has not been cleared or approved Specimen Comment: by the Food and Drug Administration. Performed By: #### A NTIR, RNA POLYMR, HEP C, ANTI TH TO, HBCAB, PM-SCL ABS, U3 COMMERCIAL LOAN COLLECTION OFFICER, HBSAG, HBSAB, JOSE #### [facility] , #### CRP, CK, CMP #### [address] HCV Ab Comment Normal . [facility] Comment on above: Order Comment: Speci men Comment: Test(s) 136866-Hucj-N5 COMMERCIAL LOAN COLLECTION OFFICER (Fibrillarin)(RDL) Specimen Comment: was developed and its performance characteristics Specimen Comment: determined by [facility]. It has not been cleared or approved Specimen Comment: by the Food and Drug Administration. Specimen Comment: Test(s) [id number]-Yqym-OX/Scl-75 Ab (RDL) Specimen Comment: was developed and [...] TH TO, HBCAB, PM-SCL ABS, U3 COMMERCIAL LOAN COLLECTION OFFICER, HBSAG, HBSAB, JOSE #### [facility] , #### CRP, CK, CMP #### [facility] [address] Hepatitis B Core Antibodyon 08-08-2020 Hepatitis B Core Antibody Negative Normal Negative [facility] Comment on above: Order Comment: Speci men Comment: Test(s) [id number]-Vkyw-X6 COMMERCIAL LOAN COLLECTION OFFICER (Fibrillarin)(RDL) Specimen Comment: was developed and its performance characteristics Specimen Comment: determined by [facility]. It has not been cleared or approved Specimen Comment: by the Food and Drug Administration. Specimen Comment: Test(s) [id number]-Xlax-VC/Scl-75 Ab (RDL) Specimen Comment: was developed and its performance characteristics Specimen Comment: determined by [facility]. It has not been cleared or approved Specimen Comment: by the Food and Drug Administration. Result Comment: Perf ormed at: - [facility] [id number] Incident Coordinator: David Pace PhD, Phone: [phone] Performed By: #### A NTIR, RNA POLYMR, HEP C, ANTI TH TO, HBCAB, PM-SCL ABS, U3 COMMERCIAL LOAN COLLECTION OFFICER, HBSAG, HBSAB, JOSE #### [facility] , #### CRP, CK, CMP #### [facility] [address] [place] [address] Hepatitis B Surface Antibody on 08-08-2020 Hepatitis B Surface Antibody Non Reactive Normal . [facility] Comment on above: Order Comment: Speci men Comment: Test(s) [id number]-Qqzh-J5 COMMERCIAL LOAN COLLECTION OFFICER (Fibrillarin)(RDL) Specimen Comment: was developed and its performance characteristics Specimen Comment: determined by [facility]. It has not been cleared or approved Specimen Comment: by the Food and Drug Administration. Specimen Comment: Test(s) [id number]-Pcpz-MQ/Scl-75 Ab (RDL) Specimen Comment: was developed and [...] TH TO, HBCAB, PM-SCL ABS, U3 COMMERCIAL LOAN COLLECTION OFFICER, HBSAG, HBSAB, JOSE #### [facility] , #### CRP, CK, CMP #### [facility] [address] [place] [address] Hepatitis B Surface Antigeno n 08-08-2020 HBsAg Screen Negative Normal Negative [facility] Comment on above: Order Comment: Speci men Comment: Test(s) [id number]-Lapd-V2 COMMERCIAL LOAN COLLECTION OFFICER (Fibrillarin)(RDL) Specimen Comment: was developed and its performance characteristics Specimen Comment: determined by [facility]. It has not been cleared or approved Specimen Comment: by the Food and Drug Administration. Specimen Comment: Test(s) [id number]-Rzpy-GZ/Scl-75 Ab (RDL) Specimen Comment: was developed and its performance characteristics Specimen Comment: determined by [facility]. It has not been cleared or approved Specimen Comment: by the Food and Drug Administration. Performed By: #### A NTIR, RNA POLYMR, HEP C, ANTI TH TO, HBCAB, PM-SCL ABS, U3 COMMERCIAL LOAN COLLECTION OFFICER, HBSAG, HBSAB, JOSE #### [facility] , #### CRP, CK, CMP #### [facility] [address] [place] [id number] [place] PM-SCL Antibodieson 08-08-19 21 JOHN PM-Scl Antibody <20 Normal <20 [facility] Comment on above: Order Comment: Speci men Comment: Test(s) [id number]-Wxki-D6 COMMERCIAL LOAN COLLECTION OFFICER (Fibrillarin)(RDL) Specimen Comment: was developed and its performance characteristics Specimen Comment: determined by [facility]. It has not been cleared or approved Specimen Comment: by the Food and Drug Administration. Specimen Comment: Test(s) [id number]-Pqjx-VL/Scl-75 Ab (RDL) Specimen Comment: was developed and its performance characteristics Specimen Comment: determined by [facility]. It has not been cleared or approved Specimen Comment: by the Food and Drug Administration. Result Comment: Nega tive: <20 Weak Positive: 20 - 39 Moderate Positive: 40 - 80 Strong Positive: >80 Performed at: [facility] [address] [place] [id number] Incident Coordinator: Shay Mcnair MD, Phone: [phone] Performed By: #### A NTIR, RNA POLYMR, HEP C, ANTI TH TO, HBCAB, PM-SCL ABS, U3 COMMERCIAL LOAN COLLECTION OFFICER, HBSAG, HBSAB, JOSE #### [facility] , #### CRP, CK, CMP #### [address] RNA Polymerase IIion 021 RNA Polymerase IIi <20 Normal <20 [facility] Comment on above: Order Comment: Speci men Comment: Test(s) [id number]-Gqql-Zj/To Ab (RDL) Specimen Comment: was developed and its performance characteristics Specimen Comment: determined by [facility]. It has not been cleared or approved Specimen Comment: by the Food and Drug Administration. Result Comment: Nega tive: <20 Weak Positive: 20 - 39 Moderate Positive: 40 - 80 Strong Positive: >80 Performed at: [facility] [address] [place] [id number] Incident Coordinator: Shay Mcnair MD, Phone: [phone] PERFORMED BY: [place] [id number] PATHOLOGIST SUPERVISING FILM OR VIDEOTAPE EDITOR BEAU JOHNSON M.D. Performed By: #### A NTIR, RNA POLYMR, HEP C, ANTI TH TO, HBCAB, PM-SCL ABS, U3 COMMERCIAL LOAN COLLECTION OFFICER, HBSAG, HBSAB, JOSE #### [facility] , #### CRP, CK, CMP #### [place] [address] [place] Th/To Antibodyon 08-08-2020 Th/To Antibody Negative Normal Negative [facility] Comment on above: Order Comment: Speci men Comment: Test(s) [id number]-Zsjj-Xp/To Ab (RDL) Specimen Comment: was developed and its performance characteristics Specimen Comment: determined by [facility]. It has not been cleared or approved Specimen Comment: by the Food and Drug Administration. Result Comment: Perf ormed at: [facility] [address] [place] [id number] Incident Coordinator: Shay Mcnair MD, Phone: [phone] Performed By: #### A NTIR, RNA POLYMR, HEP C, ANTI TH TO, HBCAB, PM-SCL ABS, U3 COMMERCIAL LOAN COLLECTION OFFICER, HBSAG, HBSAB, JOSE #### [facility] , #### CRP, CK, CMP #### [address] U3 Rnpon 08-08-2020 U3 Manager Software Negative Normal Negative [facility] Comment on above: Order Comment: Speci men Comment: Test(s) [id number]-R9 COMMERCIAL LOAN COLLECTION OFFICER (Fibrillarin)(RDL) Specimen Comment: was developed and its performance characteristics Specimen Comment: determined by [facility]. It has not been cleared or approved Specimen Comment: by the Food and Drug Administration. Specimen Comment: Test(s) [id number]-Yiai-NO/Scl-75 Ab (RDL) Specimen Comment: was developed and its performance characteristics Specimen Comment: determined by [facility]. It has not been cleared or approved Specimen Comment: by the Food and Drug Administration. Result Comment: Perf ormed at: [facility] [address] [place] [id number] Incident Coordinator: Shay Mcnair MD, Phone: [phone] PERFORMED BY: [place] [id number] PATHOLOGIST SUPERVISING FILM OR VIDEOTAPE EDITOR BEAU JOHNSON M.D. Performed By: #### A NTIR, RNA POLYMR, HEP C, ANTI TH TO, HBCAB, PM-SCL ABS, U3 COMMERCIAL LOAN COLLECTION OFFICER, HBSAG, HBSAB, JOSE #### [facility] , #### CRP, CK, CMP #### [facility] [address] T4on 08-02-2020 T4, Total 9.9 ug/dL 4.5 - 10.9 ug/dL [place], [place] TSH without Reflexon 021 Interpretation and review of laboratory results Abnormal [place], [place] TSH Qn 5.63 m[IU]/L [place] Vital Signs Date Time Vital Sign Value Performing Clinician Faci lity 01-10-2023 19:11-0400 SaO2% (BldA) [Mass fraction] 92 % Bulmaro Padron MD Work Phone: [facility] 01-10-2023 18:46-0400 Diastolic blood pressure 75 mm[Hg] Bulmaro Padron MD Work Phone: [facility] 01-10-2023 18:46-0400 Systolic blood pressure 166 mm[Hg] Bulmaro Padron MD Work Phone: [facility] 01-10-2023 17:33-0400 Body temperature 97.9 [degF] Bulmaro Padron MD Work Phone: [facility] 01-10-2023 17:33-0400 Heart rate 71 /min Bulmaro Padron MD Work Phone: [facility] 01-10-2023 17:33-0400 Respiratory rate 16 /min Bulmaro Padron MD Work Phone: [facility] Encounters Encounter Date Encounter Type Care Provider Facility Start: 04-06-2024 End: 04-06-2024 ambulatory Akira Vargas MD [facility]: [facility] Start: 03-23-2024 End: 03-23-2024 ambulatory Akira Vargas MD [facility]: [facility] Start: 03-02-2024 End: 03-02-2024 ambulatory Akira Vargas MD Facility: [facility] Start: 05-28-2023 End: 05-29-2023 ambulatory Aayush Arielle MENDOZA Facility:[facility] Start: 05-27-2023 ambulatory Aayush SOL [facility] Start: 04-29-2023 ambulatory Aayush MENDOZA [facility] Start: 04-02-2023 End: 04-03-2023 ambulatory ARMIDA AGEE [facility] Start: 02-01-2023 End: 02-01-2023 Subsequent hospital visit by physician Bulmaro Padron MD Work Phone: [facility] Comment on above: Nocturia; Frequency of urination; Urge incontinence Start: 02-01-2023 End: 02-04-2023 ambulatory GABBIE WHITE [facility] Start: 01-10-2023 Emergency department patient visit [facility] Start: 01-10-2023 End: 01-10-2023 Emergency department patient visit Bulmaro Padron MD Work Phone: [facility] ED Comment on above: Right ureteral stone (Primary Dx) Start: 10-09-2022 Emergency department patient visit JORDYN EATON [facility] Start: 06-19-2022 End: 06-20-[address] BULMARO [...] bacterial quanttative colony count urine Gabbie White 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 Work Phone: Start: 01-10-2023 Ct abdomen & pelvis w/o contrast material Cari Britton [facility] Work Phone: Start: 01-10-2023 Comprehensive metabo lic panel Cari Britton [facility] Work Phone: Start: 01-10-2023 Urinalysis microscopic only Unknown Provider Result Start: 01-10-2023 Urnls dip stick/tabl et rgnt auto w/o microscopy Cari Britton [facility] Work Phone: Start: 08-02-2020 Assay of thyroid stimulating hormone tsh Bulmaro Padron Work Phone: Start: 08-02-2020 Assay of thyroxine total Bulmaro Padron Work Phone: Plan of Treatment Date Care Activity Detail Author Start: 01-27-2028 DTaP/Tdap/Td vaccine (2 - Td or Tdap) DTaP/Tdap/Td vaccine (2 - Td or Tdap) [facility] Start: 01-27-2028 DTaP/Tdap/Td vaccine (2 - Td) DTaP/Tdap/Td vaccine (2 - Td) [place] Start: 02-12-2023 Influenza vaccination B ON [facility] Start: 03-15-2020 Influenza vaccination Flu vaccine (# 1) [place] Start: 01-04-2019 Annual Wellness Visi t (AWV) Annual Wellness Visit (AWV) [facility] Start: 2012 Screening for malign ant neoplasm of breast Breast cancer screen [facility] Start: 2012 Screening for malign ant neoplasm of colon Colon cancer screen colonoscopy [place], [place] Start: 2012 Shingles Vaccine (1 of 2) Shingles Vaccine (1 of 2) [facility] Start: 12-15-2007 Screening for malign ant neoplasm of colon [facility] Start: 2002 Lipid panel [facility] Start: 1997 Diabetes screen Diabetes screen [facility] Start: 1992 Screening for malign ant neoplasm of cervix [facility] Start: 12-15-1983 Screening for malign ant neoplasm of cervix [facility] Start: 1980 Hepatitis C screening Hepatitis C ar sonny [facility] Start: 1977 HIV screening HIV screen [facility] Start: 1974 Depression Screen Depression Screen [facility] Start: 06-15-1963 COVID-19 Vaccine (#1) COVID-19 Vacci ne (#1) [facility] Start: 1962 Hepatitis C screening Hepatitis C [place], [place] End: 08-02-2020 Free T3 [Mass/Vol] T3, Free Lab Routine Once for 1 Occurrences starting 08/02/2020 until 08/02/2020 [place], [place] Comment on above: Once for 1 Occurrenc es starting 08/02/2020 until 08/02/2020 Free T3 [Mass/Vol] T3, Free Lab Routine 08/02/2020 10:13 AM EST [place], [place] Immunizations Immunization Date Immunization Notes Care Provider Gt doyle 01-26-2018 tetanus toxoid, redu clare diphtheria toxoid, and acellular pertussis vaccine, adsorbed Bulmaro Hoy [facility] Payers Date Payer Category Payer Private Health Insurance 2018 Medicare [id number] 2017 Unknown [id number] 1962 Unknown [id number] 2.16.84 [id number] 1962 Unknown [id number] 2.16.84 [id number] 1962 Unknown [id number] 2.16.84 [id number] 1962 Unknown [id number] 2.16.84 [id number] 1962 Unknown [id number] 2.16.84 [id number] 1962 Unknown [id number] 2.16.84 [id number] 1962 Unknown [id number] 2.16.8 [id number] 1962 Unknown [id number] 2.16.8 [id number] 1962 Unknown [id number] 2.16.8 [id number] 1962 Unknown [id number] 2.16.8 [id number] 1962 Unknown [id number] 2.16.8 [id number] 1962 Unknown [id number] 2.16. [id number] 1962 Unknown [id number] 2.16. [id number] 1962 Unknown [id number] 2.16. [id number] Social History Date Type Detail Facility Start: 07-01-2018 End: 01-11-2023 Tobacco smoking status NHIS Former smoker [place], [place] Start: 07-01-2018 End: 01-11-2023 Tobacco use and exposure Never used [place], [place] Start: 07-01-2018 End: 02-01-2023 Alcohol intake Current non-drinker of alcohol (finding) [place], [place] Start: 1960 Sex Assigned At Not on file [place] History of tobacco [facility] Start: 10-09-2022 History SDOH Alcohol Frequency 1 [facility] [employer] Start: 10-09-2022 History SDOH Alcohol Std Drinks 0 [facility] Clinical Note 05-28-2023 Note Date & [...] Substance Abuse, 05/28/20 (more content not included)... [facility] Comment on above: Result Comment: Elec [...] cannot be sent through Care Everywhere.Kidney Stone (Albanian)documented in this encounter [facility] Evaluation note Note Date & Type Note Facility Evaluation note Diagnosis Right ureteral stone- Primary Calculus of ureter documented in this encounter [facility] Evaluation note Note Date & Type Note Facility Evaluation note Diagnosis Nocturia Frequency of urination Urinary frequency Urge incontinence documented in this encounter [facility] Advance Directives No Advanced Directives Records FoundDocuments on File Type Date Recorded 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 DATE CREATED AUTHOR AUTHOR'S ORGANIZ ATION 05/29/2023 [facility] DATE CREATED AUTHOR AUTHOR'S ORGANIZ ATION 04/18/2024 [facility] Reason for Visit (unrecogniz ed section and [...] Care Teams (unrecognized sec tion and content) Urban Designer Relationship Specialty Start Date End Date Bulmaro Padrno MD [address] [place] [address] PCP - General Family Medicine 01/26/18 Urban Designer Relationship Specialty Start Date End Date Bulmaro Padron MD [address] [place] [address] PCP - General Family Medicine 01/26/18 FOR [...] BE BASED ON THE PRIMARY CLINICAL RECORDS. [employer] [facility]. provides no warranty or guarantee of the accuracy or completeness of information in this document.
[2024-05-11 08:24] VITALS: BP 171/87; PULSE 65; TEMP 36.8; O2SAT 97
[2024-05-11 09:10] VITALS: BP 169/72; BP 174/75; PULSE 56; PULSE 61; O2SAT 97
--- NOTE | 2024-05-11 09:13 | W.PM.PROCNOT ---
Date of procedure: 05/11/24 Pre-op diagnosis: Pain due to lumbar stenosis with neurogenic claudication Post-op diagnosis: same as pre-op Procedure: Procedure: Bilateral L4-5 transforaminal epidural steroid injection Medications: Bupivacaine 0.25% 2cc, lidocaine 2% 1cc, kenalog 80mg The patient was seen and examined in the preoperative holding area.? Informed consent was obtained and placed on the chart.? Patient was brought to the medical procedure unit and placed in the prone position where a timeout was completed verifying the correct patient, procedure site, position, and planned special equipment using sterile aseptic technique.? Under direct fluoroscopic visualization a 25-gauge Quincke tipped spinal needle was advanced at level left L4-5 to the designated neural foramen where contrast dye was injected to show adequate spread.? There was no evidence of vascular or adverse uptake.? Epidural spread was appreciated.? The above-mentioned injectate was then placed in a 1.5 mL aliquot preceded by negative aspiration.? The needle was removed. The same procedure, at the same level, was completed on the opposite side. ? Patient was taken to the postprocedural recovery area and monitored for an appropriate length of time before found suitable for discharge in the accompaniment of a responsible adult. Anesthesia: Local Surgeon: Akira Vargas Pathology: none sent Condition: stable Disposition: no change
[2024-05-11] MEDS: 0.9 % SODIUM CHLORIDE 10 ML SYRINGE - SALINE FLUSH INJ (09:14)
[2024-05-11] MEDS: IOHEXOL 240 MG/ML - 10 ML VIAL 24 MG INJ (09:15)
[2024-05-11] MEDS: LIDOCAINE HCL 2% 400 MG/20 ML MDV 3 ML INJ (09:15)
[2024-05-11] MEDS: TRIAMCINOLONE ACETONIDE 40 MG/ML VIAL 80 MG INJ (09:15)
[2024-05-11] MEDS: BUPIVACAINE HCL 0.25% PF 25 MG/10 ML VIAL INJ (09:15)
== END 2024-05-11 09:17 | disposition home or self-care (01) ==
LOC: SURGOUT 07:51
PROVIDERS: PCP Family Medicine; Visit Provider Anesthesiology
DX: M48.062 Spinal stenosis, lumbar region with neurogenic claudication (principal)
CPT/HCPCS: 64483; J0665; J3301; Q9966

== ENCOUNTER 2024-05-20 09:23 | Outpatient (OUT) | payer MEDICARE, SELFPAY ==
--- NOTE | 2024-05-20 09:52 | PM.CN ---
Consult Note: HPI Data of Consult Patient: known to practice within the last 3 years Consult date: 03/02/24 Requesting Physician: Liz Perales NP Primary Care Provider: Sebastien Padron MD Consult Narrative Reason for consult: low back pain Narrative: 63yof who presents for evaluation. longstanding low back pain history >20 years, now worsening. worse with standing and ambulation. imaging reviewed, which shows facet arthropathy throughout lower lumbar spine. has engaged in physical therapy and continues in >6 weeks of provider directed home exercise program, without lasting benefit. has tried various pain meds, without significant benefit. tried muscle relaxers without benefit. denies adverse med side effects. recently underwent bilateral L4-5 L5-S1 MBB #1 with >80% improvement in pain and functional ability immediately following and at least two hours after the procedure, pain 1/10, however with MBB#2 she had minimal relief, pain 5/10 prior and 3-4/10 after for 1 hour before returning to baseline. Patients thoracic xray shows minimal degenerative changes. Patient has found benefit to baclofen 5-10mg HS PRN. patient reporting increase in heaviness, numbness, tingling and weakness of bilateral thighs and knees with standing walking climbing stairs. improved with forward flexion and sitting. previous lumbar MRI does shows stenosis at multiple levels including L4-5. Recently underwent bilateral L4-5 TFESI with 90% improvement in pain and functional ability ongoing. Pt notes she had a headache and flushing the first few days after her injection, she has chronic LE edema that has improved since her injection, and shes noticing difficulty regulating her temperature. she does have a chronic thyroid condition her PCP manages. cc:: CC: Liz Perales NP Review of Systems ROS Status of ROS 10 or more systems reviewed and unremarkable except as noted in history and below Musculoskeletal Reports: back pain PFSH PFSH Medical History (Updated 04/08/24 @ 11:00 by Liz Perales NP) H/O complications due to general anesthesia ?Z91.89 - Other specified personal risk factors, not elsewhere classified (ICD-10) Anemia ?D64.9 - Anemia, unspecified (ICD-10) Heartburn ?R12 - Heartburn (ICD-10) Obesity ?E66.9 - Obesity, unspecified (ICD-10) Hypothyroid ?E03.9 - Hypothyroidism, unspecified (ICD-10) Asthma ?J45.909 - Unspecified asthma, uncomplicated (ICD-10) Surgical History H/O abdominal surgery ?Z98.890 - Other specified postprocedural states (ICD-10) S/P hernia repair ?Z98.890 - Other specified postprocedural states (ICD-10) ?Z87.19 - Personal history of other diseases of the digestive system (ICD-10) Meds Home Medications and Allergies Home Medications ?Medication ?Instructions ?Recorded ?Confirmed ?Type albuterol sulfate 90 mcg/actuation 2 inh inhalation Q6H PRN shortness 03/02/24 05/11/24 History breath activated powder inhaler of breath or wheezing aspirin 81 mg capsule 81 mg PO DAILY 03/02/24 05/11/24 History cholecalciferol (vitamin D3) 50 50 mcg PO DAILY 03/02/24 05/11/24 History mcg (2,000 unit) capsule hydroxychloroquine 200 mg tablet 200 mg PO DAILY 03/02/24 05/11/24 History levothyroxine 150 mcg capsule 150 mcg PO DAILY 03/02/24 04/06/24 History liothyronine 5 mcg tablet 15 mcg PO DAILY 03/02/24 05/11/24 History baclofen 10 mg tablet 10 mg PO TID PRN muscle spasm 04/08/24 05/11/24 History Allergies Allergy/AdvReac Type Severity Reaction Status Date / Time bee pollen AdvReac Mild itching Verified 05/11/24 08:29 Exam Constitutional Documenting provider has reviewed patient's vital signs: yes Common normals: no apparent distress, oriented x3, healthy appearing, alert and well nourished General appearance: cooperative [facility] Common normals: normocephalic, hearing grossly normal bilaterally and moist oral mucous membranes Head and scalp: normocephalic Eye Common normals: PERRL Pupil: PERRL Neck & C-Spine Common normals: full ROM General: normal visual inspection Chest Common normals: inspection of chest normal Respiratory Common normals: normal respiratory effort, no retractions and no use of accessory muscles Back & Pelvis Thoracic spine/upper back: pain with ROM, thoracic spinal tenderness and paraspinal muscle tenderness Lumbar spine/lower back: pain with ROM, lumbar spinal tenderness and straight leg raise negative bilaterally Sacroiliac joints: SI joints normal Other: sensation intact BLE, strength 5/5 in BLE pain over L3-S1 facets, positive facet loading bilaterally Extremity Common normals: normal to inspection and full ROM Neuro Common normals: oriented x3, CN's II-XII intact bilaterally, moves all extremities, no focal motor deficits, no sensory deficits noted and deep tendon reflexes 2+ bilaterally Sensorium/orientation: alert Motor exam: strength 5/5 throughout and no movement abnormalities noted Psych Common normals: mental status grossly normal, thought process normal, cooperative, affect normal, speech normal and activity/motor behavior normal Speech: normal speech Thought process: normal thought process Results Additional Findings Additional findings: If on a controlled substance or opioids, I have checked an [place] report on this patient and there are no aberrancies noted in the prescribing history.??If on a controlled substance or opioid a drug screen was completed and reviewed within the last year, and if there has not been a drug screen completed we ordered one today to monitor higher risk, state monitored pain medication use. As part of providing excellent, safe, comprehensive care, the following was completed at our patient's visit: 1. A medication reconciliation and review to ensure accurate knowledge of current/active medications, including asking our patients to inform us about any [id number] medications or herbal remedies/nutritional supplements/alternative remedies. 2. A review to specifically ensure our patients have had annual screening for screening for depression, screening for tobacco use, and screening for unhealthy alcohol use. For concerning screenings had a discussion with the patient, provided patient education, and recommended follow-up with primary care provider when appropriate. If patient noted with a risk of falling, they received education on strength, gait, and balance training to prevent future risk of falling. Assessment and Plan Assessment and Plan (1) Lumbar stenosis with neurogenic claudication: (2) Lumbar spondylosis: (3) Thoracic spondylosis: (4) Myofascial pain: Plan continue current medications continue HEP as tolerated f/u with PCP regarding chronic thyroid issues and problems regulating body temperature f/u 3 months, sooner if needed
== END 2024-05-20 09:24 | disposition home or self-care (01) ==
LOC: PM 09:23
PROVIDERS: PCP Family Medicine; Visit Provider Nurse Practitioner
DX: M48.062 Spinal stenosis, lumbar region with neurogenic claudication (principal); M47.816 Spondylosis without myelopathy or radiculopathy, lumbar region; M47.814 Spondylosis without myelopathy or radiculopathy, thoracic region; M79.18 Myalgia, other site
CPT/HCPCS: G0463

== ENCOUNTER 2025-01-14 09:59 | Outpatient (OUT) | payer MEDICARE, SELFPAY ==
--- OUTSIDE RECORDS SUMMARY | 2024-05-12 06:22 | XMS_ITS ---
Author Organization [facility] in [place] Address [address] [place] [address] Care Team Providers Care Lease Buyer Name Role Phone Geraldo Padron Primary Care Provider [phone] REASON FOR VISIT concerned for med s/e Medications Medication SIG (Take, Route, Fr equency, Duration) Notes Start Date End Date Status Synthroid 125 MCG 1 tablet in the morn ing on an empty stomach Orally Once a day for 90 days 12/31/2022 Active Encounters Encounter Location Date Provider Diagnosis [facility] [address] [place] [address] 05/12/2024 Geraldo Padron Hypothyroid E03. 9 Assessments Encounter Date Diagnosis (ICD Code) Assessment Notes Treatment Notes Treatment Clinical Notes Section Notes 05/12/2024 Hypothyroid (ICD-10 - E03.9) Plan Of Treatment Medication Medication Name Sig Start Date Stop Date Notes Synthroid 125 MCG 1 tablet in the morn ing on an empty stomach Orally Once a day for 90 days 12/31/2022 Pending Test Test Name Order Date THYROID PROFILE WITH TSH 05/12/2024 Progress Notes * Laura KURTZB:1960 (63 yo F)Acc No.[id number]:05/12/2024 Patient: Yas ROWE :1960 A ge:63 Y S ex:Female Address: [facility], [address] [place] [id number] * Refills Refill Synthroid Tablet, 125 MCG, Orally, 90, 1 tablet in the morning on an empty stomach, Once a day, 90 days, Refills=3 Subjective: * Chief Complaints: * C oncerned for med s/e * Medical History: * Surgical History: * Hospitalization/Major Diagno stic Procedure: * Medications: Objective: * Vitals: * Physical Examination: Assessment: * Assessment: 1. H ypothyroid - E03.9 (Primary) Plan: * Treatment: 2. O thers Refill Synthroid Tablet, 125 MCG, 1 tablet in the morning on an empty stomach, Orally, Once a day, 90 days, 90, Refills 3. * Procedure Codes: * true * Date: Generated for Atul bradford/Vlad/Rocco on: 01/14/2025 10:03 AM EDT
--- OUTSIDE RECORDS SUMMARY | 2025-01-14 05:15 | XMS_ITS ---
Author Organization [facility] [place] Address [address] [place] [address] Care Team Providers Care Vocal Teacher Name Role Phone Geraldo Padron Primary Care Provider [phone] Allergies Allergen (clinical drug ingredient) Drug/Non Drug Allergy documented on EMR Reaction Allergy Type Onset Date Status Bee Sting Unknown Allergy Active REASON FOR VISIT Yearly- med refill baclofen Medications Medication SIG (Take, Route, Frequency, Duration) Notes Start Date End Date Status Lasix 20 MG 1 tablet Orally Once a day for 30 days 01/14/2025 Active Ferrous Sulfate 325 (65 Fe) MG 1 tablet Orally Once a day Active Albuterol Sulfate HFA 108 (90 Base) MCG/ACT INHALE 1 PUFF BY MOUTH EVERY 4 HOURS NEEDED for 33 PRN Active Vitamin D 50 MCG (2000 UT) 10 tablet Ora lly Once a day Active Baclofen 10 MG 1 tablet as needed O rally tid for 30 days 01/14/2025 Active Multivitamin - 1 tablet Orally Once a day Active Synthroid 125 MCG 1 tablet in the morn ing on an empty stomach Orally Once a day for 90 days 12/31/2022 Active Liothyronine Sodium 5 MCG Take 3 tablets by mouth once daily for 90 Active Aspir-Low 81 MG 1 tablet Orally Once a day Active Social History Tobacco Use: Social History Observation Description Date Details (start date - stop date) Former Smoker 07/15/1980 - 07/15/2013 Tobacco Use/Smoking Question Answer Notes Patient is a former smoker When did you start smoking? 07/15/1980 When did you stop smoking? 07/15/2013 How long has it been since you last smoked? 5-10 years AUDIT-C (Standard) Question Answer Notes Did you have a drink containing alcohol in the p ast year? No Points 0 Interpretation Negative Problems Problem Type SNOMED Code ICD Code Onset Dates Problem Status W/U Status Risk Notes Problem Morbid (severe) obesity due to excess calories (E66.01) Active confirmed Problem Well adult ([id number]) Well adult (Z00.00) Active confirmed Vital Signs Blood pressure systolic 140 mm Hg 01/15/20 25 Blood pressure diastolic 88 mm Hg 025 Height 58.75 in 01/14/2025 Weight 224.8 lbs 01/14/2025 BMI 45.79 kg/m2 01/14/2025 Encounters Encounter Location Date Provider Diagnosis [facility] [address] [place] [address] 01/14/2025 Geraldo Padron Morbid (severe) obesity due to excess calories E66.01 ; Well adult Z00.00 ; Vitamin D deficiency E55.9 ; Iron deficiency anemia D50.9 ; Adrenal adenoma D35.00 and Adrenal adenoma, left D35.02 Assessments Encounter Date Diagnosis (ICD Code) Assessment Notes Treatment Notes Treatment Clinical Notes Section Notes 01/14/2025 Morbid (severe) obesity due to excess calories (ICD-10 - E66.01) disoucsesd marjan for weihg loss 01/14/2025 Well adult (ICD-10 - Z00.00) [facility]s rout[facility] labs 01/14/2025 Vitamin D deficiency (ICD-10 - E55.9) 01/14/2025 Iron deficiency anemia (ICD-10 - D50.9) 01/14/2025 Adrenal adenoma (ICD-10 - D35.00) 01/14/2025 Adrenal adenoma, left (ICD-10 - D35.02) Plan Of Treatment Medication Medication Name Sig Start Date Stop Date Notes Lasix 20 MG 1 tablet Orally Once a day for 30 days 025 Baclofen 10 MG 1 tablet as needed Orally tid for 30 days 0 01/14/2025 Treatment Notes Assessment Notes Morbid (severe) obesity due to excess ca lories disoucsesd marjan for weihg loss Well adult neecs routind labs Pending Test Test Name Order Date HEMOGLOBIN A1C (GLYCO) 01/14/2025 IRON, TOTAL 01/14/2025 LIPID PANEL (CHOL/TRIG/HDL/LDL) 01/15/20 25 VITAMIN D, 25 LEVEL (TOTAL) 01/14/2025 Insulin Level 01/14/2025 MRI Adrenal Glands 01/14/2025 STOOL OCCULT BLOOD 01/14/2025 FERRITIN 01/14/2025 VIT B12 AND FOLATE 01/14/2025 XR DEXA BONE DENSITY 01/14/2025 THYROID PANEL (T4/TSH/FREE T3) 5 MM screening mammo BI 01/14/2025 CMP (COMP MET REED) w/eGFR CKD-EPI 2024 CBC WITH DIFF 01/14/2025 Progress Notes * Telma KURTZaDOB:1960 (64 yo F)Acc No.[id number]:01/14/2025 UNLOCKED PROGRESS NOTE Progress Note Patient: Yas ROWE Provider: Latrice Padron ([facility])MD :1960 A ge:64 Y S ex:Female Date:01/14/2025 Address:[place] [address], [address] [place] [address] Check In:08:56 AM ESTCheck O ut:09:47 AM EST Subjective: * Chief Complaints: * 1 . Yearly- med refill baclofen. * HPI: G eneral: Bapain - backlofen workng diussed weight - diuscsed need for labs diosssed thyroid labs - disucssed BP - up some herer - better than before Left adremnal adenoma - dianne MRI. * ROS: E ENT: hearing changes d enies. v isual changes d enies.�non-healing mouth sores d enies. s wollen glands or neck lumps d enies. h oarseness d enies. s ore throat d enies. d ifficulty swallowing d enies. n ose bleeds d enies. n marian congestion d enies. e ar ache d enies. e ar discharge�denies. r inging in ears d enies. l ight sensitivity d enies. e ye pain d enies. b lurring d enies. e ye irritation d enies. d ouble vision d enies.�vision loss d enies. G eneral/Constitutional: Sweats: D enies. F atigue d enies. S leep problems d enies. A norexia d enies. M alaise d enies. W eight loss d enies.�Fatigue or Weakness d enies. F ever or Chills d enies. C ardiovascular: Shortness of Breath w/lying flat d enies. L ightheadedness/dizziness d enies. C hest tightness/ heavy pressure d enies. S welling of legs, ankles, or feet d enies. W aking up with shortness of breath d enies. C hest pain denies. P alpitations d enies. W eight gain d enies. R espiratory: Chronic or frequent cough d enies. C oughing up blood�denies. D ifficulty breathing d enies. P roductive cough d enies. S noring�denies. S hortness of breath that awakens from sleep (PND) d enies. C hest pain d enies. S putum production d enies. W heezing d enies. M usculoskeletal: Joint pain d enies. J oint Fluid d enies. B ack pain d enies. K nee pain d enies. N andrey pain d enies. J oint Stiffness d enies. M uscle cramps d enies. W eakness of muscles d enies. A rthritis d enies. M uscle aches d enies. P ain in shoulder(s) d enies. S wollen joints d enies. * Medical History: B reast lump, Polyneuropathy, Osteoporosis, Rheumatoid arthritis, Osteoarthritis, Hyperlipemia, Chronic pain, Immunodeficiency, Iron deficiency anemia, COPD (chronic obstructive pulmonary disease), Leg cramps, Pedal edema, Hypothyroid, Chest pain, Elevated liver enzymes, Vitamin D deficiency, DJD (degenerative joint disease) of knee, Herniated lumbar disc without myelopathy, Tricuspid regurgitation, Asthma, Ulna Fracture. * Surgical History: W eight Loss , Hernia Repairs . * Family History: F ather: , diagnosed with Unspecified heart disease, Chronic kidney disease, unspecified. M other: , COPD, diagnosed with Unspecified heart disease. * Social History: T obacco Use: T obacco Use/Smoking P atient is a f ormer smoker W hen did you start smoking? 0 07/15/1980 W hen did you stop smoking? 0 07/15/2013 H ow long has it been since you last smoked?�5-10 years D rug/Alcohol: A HERBIE-C (Standard) D id you have a drink containing alcohol in the past year? N o P oints 0 I nterpretation N egative * Medications: T aking Albuterol Sulfate HFA 108 (90 Base) MCG/ACT Aerosol Solution INHALE 1 PUFF BY MOUTH EVERY 4 HOURS NEEDED , Notes to Pharmacist: PRN, Taking Aspir-Low 81 MG Tablet Delayed Release 1 tablet Orally Once a day , Taking Ferrous Sulfate 325 (65 Fe) MG Tablet 1 tablet Orally Once a day , Taking Liothyronine Sodium 5 MCG Tablet Take 3 tablets by mouth once daily , Taking Multivitamin(Multiple Vitamin) - Tablet 1 tablet Orally Once a day , Taking Synthroid(Levothyroxine Sodium) 125 MCG Tablet 1 tablet in the morning on an empty stomach Orally Once a day , Taking Vitamin D 50 MCG (2000 UT) Tablet 10 tablet Orally Once a day , Discontinued Cefdinir 300 MG Capsule 2 capsule Orally once a day , Discontinued Hydroxychloroquine Sulfate 200 MG Tablet Take 1 tablet by mouth twice daily , Discontinued Pyridium(Phenazopyridine HCl) 200 MG Tablet 1 tablet after meals Orally Three times a day , Medication List reviewed and reconciled with the patient * Allergies: B ee Sting. Objective: * Vitals: W t:224.8lbs, Ht: 58.75 in, BP:140/88mm Hg, BMI:45.79Index, Ht-cm: 149.23 cm, Wt- k.97 kg. * Examination: P hysical Exam: GENERAL: w ell developed, well nourished, in no acute distress. HEAD: n ormocephalic/atraumatic. EYES: p upils equal, round and reactive to light, conjunctivae and sclerae normal. EARS: n o deformity or lesion of external ear, canals and TM appear normal bilaterally, TM's intact, not inflamed with normal light reflex, hearing grossly normal to conversational speech. NOSE: n o deformity, discharge, inflammation, or lesions.� MOUTH: m ucous membranes moist, normal oropharynx and posterior pharynx without lesions or exudates, tongue normal, dentition normal. NECK: n andrey supple, no masses or palpable cervical nodes, trachea midline, thyroid without nodules, masses, tenderness, or enlargement. CHEST: n o chest wall deformity, no chest wall tenderness.� LUNGS: n ormal respiratory effort and clear to auscultation, no wheezes, rales, or rhonchi, good air exchange. CARDIO: r egular rate and rhythm, normal S1 and S2, nor murmur, rub, or gallop. PULSES: n ormal capillary refill. ABDOMEN: s oft, non-distended, non-tender, no masses. MUSCULOSKELETAL: n o deformity or scoliosis noted, normal range of motion, joints normal, no erythema, edema, effusion, or ecchymosis. EXTREMITY: n o clubbing, cyanosis, edema, or deformity with normal ROM in both upper and lower bilateral extremities. NEUROLOGIC: g rossly normal. SKIN: n o rashes, ulcerations, or suspicious lesions. LYMPH NODES: n o cervical adenopathy, nodes normal. MENTAL STATUS: a lert and oriented x3, normal mood and affect. Assessment: * Assessment: 1. M orbid (severe) obesity due to excess calories - E66.01 (Primary) 2 . W [facility] adult - Z00.00 3 . V itamin D deficiency - E55.9 4 . I colt deficiency anemia - D50.9 5 . A drenal adenoma - D35.00 6 .�Adrenal adenoma, left - D35.02 Plan: * Treatment: 2. W [facility] adult L AB: HEMOGLOBIN A1C (GLYCO) L AB: IRON, TOTAL L AB: LIPID PANEL (CHOL/TRIG/HDL/LDL) L AB: VITAMIN D, 25 LEVEL (TOTAL) L AB: Insulin Level L AB: STOOL OCCULT BLOOD L AB: THYROID PANEL (T4/TSH/FREE T3) L AB: CMP (COMP MET REED) w/eGFR CKD-EPI L AB: CBC WITH DIFF I maging: XR DEXA BONE DENSITY I maging: MM screening mammo BI Notes: neecs routind labs 3. V itamin D deficiency L AB: HEMOGLOBIN A1C (GLYCO) L AB: IRON, TOTAL L AB: LIPID PANEL (CHOL/TRIG/HDL/LDL) L AB: VITAMIN D, 25 LEVEL (TOTAL) L AB: Insulin Level L AB: STOOL OCCULT BLOOD L AB: THYROID PANEL (T4/TSH/FREE T3) L AB: CMP (COMP MET REED) w/eGFR CKD-EPI L AB: CBC WITH DIFF 4. I colt deficiency anemia L AB: HEMOGLOBIN A1C (GLYCO) L AB: IRON, TOTAL L AB: LIPID PANEL (CHOL/TRIG/HDL/LDL) L AB: VITAMIN D, 25 LEVEL (TOTAL) L AB: Insulin Level L AB: STOOL OCCULT BLOOD L AB: THYROID PANEL (T4/TSH/FREE T3) L AB: CMP (COMP MET REED) w/eGFR CKD-EPI L AB: CBC WITH DIFF 5. A drenal adenoma, left Start Lasix Tablet, 20 MG, 1 tablet, Orally, Once a day, 30 days, 30, Refills 11; S tart Baclofen Tablet, 10 MG, 1 tablet as needed, Orally, tid, 30 days, 90 Tablet, Refills 11. I maging: MRI Adrenal Glands * Preventive Medicine: Screenings/Counseling: B [place] ACTION PLAN Above Normal BMI Follow-up D ietary management education, guidance, and counseling * * Electronic signature of Geraldo Padron MD, [id number] on 01/14/2025 at 10:03 AM EDT Sign off status: Pending Visit Status: Mayda HK (Check Out) * Provider: Latrice Padron ([facility])MD Date: 01/14/2025 Generated for Printi ng/Faxing/eTransmitting on: 01/14/2025 10:03 AM EDT History and Physical Notes * HPI (History of Present Illness) Category Sub-Category Detail Notes Category Not es General Bapain - backlofen workng diussed weight - diuscsed need for labs diosssed thyroid labs - disucssed BP - up some herer - better than before Left adremnal adenoma - dianne MRI Examination Category Sub-Category Detail Notes Category Not es Physical Exam GENERAL: well developed, well nourished, in no acute distress HEAD: normocephalic/atraum atic EYES: pupils equal, round and reactive to light, conjunctivae and sclerae normal EARS: no deformity or lesi on of external ear, canals and TM appear normal bilaterally, TM's intact, not inflamed with normal light reflex, hearing grossly normal to conversational speech NOSE: no deformity, discha rge, inflammation, or lesions MOUTH: mucous membranes wil[address] st, normal oropharynx and posterior pharynx without lesions or exudates, tongue normal, dentition normal NECK: neck supple, no mass es or palpable cervical nodes, trachea midline, thyroid without nodules, masses, tenderness, or enlargement CHEST: no chest wall deform ity, no chest wall tenderness LUNGS: normal respiratory e ffort and clear to auscultation, no wheezes, rales, or rhonchi, good air exchange CARDIO: regular rate and rhy thm, normal S1 and S2, nor murmur, rub, or gallop PULSES: normal capillary ref ill ABDOMEN: soft, non-distended, non-tender, no masses RECTAL: MUSCULOSKELETAL: no deformity or scol iosis noted, normal range of motion, joints normal, no erythema, edema, effusion, or ecchymosis EXTREMITY: no clubbing, cyanosi s, edema, or deformity with normal ROM in both upper and lower bilateral extremities NEUROLOGIC: grossly normal SKIN: no rashes, ulceratio ns, or suspicious lesions LYMPH NODES: no cervical adenopat hy, nodes normal MENTAL STATUS: alert and oriented x 3, normal mood and affect
--- OUTSIDE RECORDS SUMMARY | 2025-01-14 10:04 | XMS_ITS | Patient Health Record ---
Author Organization [facility] in [place] Address [address] [place] [address] Care Team Providers Care Car Rental Manager Name Role Phone Geraldo Padron Primary Care Provider [phone] Allergies Allergen (clinical drug ingredient) Drug/Non Drug Allergy documented on EMR Reaction Allergy Type Onset Date Status Bee Sting Unknown Allergy Active Results Component Value Reference Range Notes XR lumbar spine min 4V Reviewed date:02/02/2024 05:10:58 PM Interpretation: Performing Lab: Notes/Report: Source Facility: [place] [address] XRay Report Signed Patient: YAS KURTZ MR#: [id number] : 1960 Acct:[id number] Age/Sex: 63 / F ADM Date: 01/30/24 Loc: LAB Attending Dr: Bulmaro Padron M.D. Ordering Physician: Bulmaro Padron M.D. Date of Service: 01/30/24 Procedure(s): XR lumbar spine min 4V Accession Number(s): [id number] cc: Bulmaro Padron M.D. [place] [id number] Patient Name: YAS KURTZ MRN: [id number] date: 1960 Sex: F Assigned Patient Location: LAB Current Patient Location: Accession/Order Number: [id number] Exam Date: 01/30/2024 11:55 Report Date: 01/31/2024 04:35 At the request of: BULMARO PADRON Procedure: XR lumbar spine min 4V EXAMINATION: XR lumbar spine min 4V HISTORY: Herniated Lumbar Disc Without Myelopathy M51.26 COMPARISON: XR L-spine 04/01/2020 FINDINGS: BONES: Slight right convex curvature lumbar spine. Moderate degenerative facet arthropathy L4-L5, L5-S1. DISC SPACES: Moderate narrowing L5-S1. PARASPINOUS: Numerous surgical clips and bowel sutures within upper abdomen. OTHER: Negative. XR/XR lumbar spine min 4V IMPRESSION: 1. Moderate degenerative changes of lower lumbar spine; not appreciably changed. Electronically authenticated by: CLAUDY COBIAN Date: 01/31/2024 04:35 Dictated By: Claudy Cobian M.D. Signed By: 01/31/24437 DD/ 4 TD/TT: Food Prep Worker: [place] [address] XRay Report Signed Patient: DIA KURTZ SA MR#: [id number] : 1960 Acct:[id number] Age/Sex: 63 / F ADM Date: 01/30/24 Loc: LAB Attending Dr: Jayda Padron M.D. Ordering Physician: Bulmaro Padron M.D. Date of Service: 01/30/24 Procedure(s): XR lum bar spine min 4V Accession Number(s): [id number] cc: Bulmaro Padron M.D. [place] [id number] Patient Name: YAS KURTZ MRN: [id number] date: 1960 Sex: F Assigned Patient Location: LAB Current Patient Location: Accession/Order Numb er: [id number] Exam Date: 01/30/2024 11:55 Report Date: 01/31/2024 04:35 At the request of: BULMARO PADRON Procedure: XR lumbar spine min 4V EXAMINATION: XR lumb ar spine min 4V HISTORY: Herniated Lumbar Disc Without Myelopathy M51.26 COMPARISON: XR L-spi ne 04/01/2020 FINDINGS: BONES: Slight right convex curvature lumbar spine. Moderate degenerative facet arthropathy L4-L5, L5-S1. DISC SPACES: Moderat e narrowing L5-S1. PARASPINOUS: Numerou s surgical clips and bowel sutures within upper abdomen. OTHER: Negative. XR/XR lumbar spine min 4V IMPRESSION: 1. Moderate degenerative changes of lower lumbar spine; not appreciably changed. Electronically authenticated by: CLAUDY COBIAN Date: 01/31/2024 04:35 Dictated By: Claudy Cobian M.D. Signed By: 01/31/24437 DD/ 4 TD/TT: Food Prep Worker: Vitamin B12 Reviewed date:01/30/2024 08:56:59 PM Interpretation: Performing Lab: Notes/Report: [facility] , Vitamin B12 394.0 193.0-986.0 pg/mL Performing Lab: see note ML - [facility] LB TSH Reviewed date:01/30/2024 08:56:59 PM Interpretation: Performing Lab: Notes/Report: [facility] , Thyroid Stimulating Hormone 5.300 0.358-3.740 uIU/mL Performing Lab: see note ML - [facility] LB FREE T4 Reviewed date:01/30/2024 08:56:59 PM Interpretation: Performing Lab: Notes/Report: [facility] , Free T4 1.00 0.76-1.46 ng/dL Performing Lab: see note ML - [facility] LB FOLATE Reviewed date:01/30/2024 08:56:59 PM Interpretation: Performing Lab: Notes/Report: [facility] , Folate 10.70 8.60-58.90 ng/mL Performing Lab: see note ML - [facility] LB VITAMIN D 25 [place] Reviewed date:01/30/2024 08:57:00 PM Interpretation: Performing Lab: Notes/Report: [facility] , Vitamin D 21.1 <20 ng/mL Vit D deficient >100 ng/mL Potential Toxicity 30-100 ng/mL Vit D sufficient 20-<30 ng/mL Vit D insufficient Performing Lab: see note ML - [facility] LB PROF 14(COMP METB) Reviewed date:01/30/2024 08:57:00 PM Interpretation: Performing Lab: Notes/Report: [facility] , Sodium 137 136-145 mmol/L Potassium 4.0 3.5-5.1 mmol/L Chloride 104 98-107 mmol/L Carbon Dioxide 24.8 21.0-32.0 mmol/L Anion Gap 12.2 Glucose 85 74-106 mg/dL Blood Urea Nitrogen 14.0 7.0-18.0 mg/dL Creatinine 0.51 0.55-1.02 mg/dL Estimated GFR ( Tari >60 >=60 Estimated GFR (Non- Diamante >60 >=60 BUN Creatinine Ratio 27.5 Calcium 8.9 8.5-10.1 mg/dL Bilirubin Total 0.5 0.2-1.0 mg/dL Aspartate Amino Transferase 34 15-37 U/L Alanine Aminotransferase 59 14-59 U/L Alkaline Phosphatase 106 46-116 U/L Total Protein 7.1 6.4-8.2 g/dL Albumin Level 3.7 3.4-5.0 g/dL Globulin 3.4 Albumin Globulin Ratio 1.1 Performing Lab: see note ML - [place] LIPID PROFILE Reviewed date:01/30/2024 08:57:00 PM Interpretation: Performing Lab: Notes/Report: [facility] , Triglycerides 55 <=150 mg/dL Cholesterol 127 <=200 mg/dL HDL Cholesterol 42 40-60 mg/dL <40 mg/dl - HIGH CARDIOVASCULAR RISK > or =60 mg/dl - LOW CARDIOVASCULAR RISK LDL Cholesterol Calculated 74.0 >190 mg/dl VERY HIGH 100-129 mg/dl NEAR OR ABOVE OPTIMAL 130-159 mg/dl BORDERLINE HIGH <100 mg/dl OPTIMAL 160-189 mg/dl HIGH VLDL CHOLESTEROL 11.0 Chol HDL Ratio 3.0 7.1 - 11.0 MODERATE RISK 3.3 - 4.4 LOW RISK >11.0 HIGH RISK 4.4 - 7.1 AVERAGE RISK Performing Lab: see note ML - [facility] LB IRON Reviewed date:01/30/2024 08:57:00 PM Interpretation: Performing Lab: Notes/Report: [facility] , Iron 99.0 50.0-170.0 ug/dL Performing Lab: see note ML - [facility] LB GLYCOHEMOGLOBIN A1C Reviewed date:01/30/2024 08:57:00 PM Interpretation: Performing Lab: Notes/Report: [facility] , Glycohemoglobin A1C 4.6 4.5-6.2 % ADA RECOMMENDED LIMIT 4.0 - 6.0 ACTION SUGGESTED ADA THERAPEUTIC TARGET < 7.0 > 7.0 Estimated Average Glucose 85 Performing Lab: see note ML - [facility] LB FERRITIN Reviewed date:01/30/2024 08:56:59 PM Interpretation: Performing Lab: Notes/Report: [facility] , Ferritin 33.0 8.0-252.0 ng/mL Performing Lab: see note ML - [facility] LB CBC AUTO DIFF Reviewed date:01/30/2024 08:56:59 PM Interpretation: Performing Lab: Notes/Report: [facility] , White Blood Count 5.2 4.0-11.0 10 3/uL Red Blood Count 4.33 4.20-5.40 10 6/uL Hemoglobin 13.9 12.0-16.0 g/dL Hematocrit 41.3 36.0-48.0 % Mean Corpuscular Volume 95.4 81.0-99.0 fL Mean Corpuscular Hemoglobin 32.1 26.7-34.0 pg Mean Corpuscular HGB Conc 33.7 29.9-35.2 g/dL Red Cell Distribution Width 12.6 11.0-15.0 % Platelet Count 194 150-450 10 3/uL Mean Platelet Volume 11.0 9.5-13.5 fL Neutrophils Percent Auto 58.3 43.0-75.0 % Lymphocytes Percent Auto 30.5 20.5-60.0 % Monocytes Percent Auto 8.7 1.7-12.0 % Eosinophils Percent Auto 1.7 0.9-7.0 % Basophils Percent Auto 0.4 0.2-2.0 % Immature Granulocytes Pct Auto 0.4 0.0-0.5 % Neutrophils Absolute Auto 3.0 1.4-6.5 10 3/uL Lymphocytes Absolute Auto 1.6 1.2-3.8 10 3/uL Monocytes Absolute Auto 0.5 0.3-0.8 10 3/uL Eosinophils Absolute Auto 0.1 0.0-0.7 10 3/uL Basophils Absolute Auto 0.0 0.0-0.1 10 3/uL Immature Granulocytes Abs Auto 0.02 0.00-0.03 10 3/uL Performing Lab: see note ML - [facility] LB UA DIP NONAUTO WO MICRO (810 02) - IN OFFICE Reviewed date:02/02/2024 05:10:58 PM Interpretation: Performing Lab: Notes/Report: COLOR dark yellow CLARITY clear GLUCOSE neg BILIRUBIN neg KETONE neg SPECIFIC GRAVITY 1.025 BLOOD neg PH 5 PROTEIN neg UROBILINOGEN neg NITRITE neg LEUKOCYTE ESTERASE neg TSH Reviewed date:03/23/2024 09:07:03 PM Interpretation: Performing Lab: Notes/Report: [facility] , Thyroid Stimulating Hormone 2.047 0.358-3.740 uIU/mL Performing Lab: see note ML - [facility] LB T4 Reviewed date:03/23/2024 09:07:03 PM Interpretation: Performing Lab: Notes/Report: [facility] , T4 Thyroxine 9.00 4.80-13.90 ug/dL Performing Lab: see note - [place] FREE T3 Reviewed date:03/23/2024 09:07:03 PM Interpretation: Performing Lab: Notes/Report: [facility] , Free T3 3.40 2.18-3.98 pg/mL Performing Lab: see note ML - [place] MR lumbar spine wo con Reviewed date:02/12/2024 08:54:47 PM Interpretation: Performing Lab: Notes/Report: Source Facility: [place] [address] Magnetic Resonance Report Signed Patient: YAS UKRTZ MR#: [id number] : 1960 Acct:[id number] Age/Sex: 63 / F ADM Date: 02/11/24 Loc: MRI Attending Dr: Bulmaro Padron M.D. Ordering Physician: Bulmaro Padron M.D. Date of Service: 02/11/24 Procedure(s): MR lumbar spine wo con Accession Number(s): [id number] cc: Bulmaro Padron M.D. [place] [id number] Patient Name: YAS KURTZ MRN: [id number] date: 1960 Sex: F Assigned Patient Location: MRI Current Patient Location: Accession/Order Number: [id number] Exam Date: 02/11/2024 15:45 Report Date: 02/12/2024 10:15 At the request of: BULMARO PADRON Procedure: MR lumbar spine wo con EXAMINATION: MR lumbar spine wo con HISTORY: Lumbar Back Pain M54.50, Chronic Pain G89.29 COMPARISON: No relevant comparison available. TECHNIQUE: A variety of imaging planes and parameters were utilized for visualization of suspected pathology. FINDINGS: For the purposes of numbering, sagittal T2 image # 8 extends from the T10 vertebral body superiorly to the S4 level inferiorly. PARASPINAL AREA: Normal with no visible mass. BONES: 5 mm anterolisthesis of L5 in relation S1. No acute fracture or bone edema. Mild degenerative spondylosis CORD/CAUDA EQUINA: Normal caliber, contour, and signal intensity. DISC LEVELS: 12-L1: Early degenerative disc disease is present without focal protrusion or neural impingement. L1-L2: Early degenerative disc disease is present without focal protrusion or neural impingement. L2-L3: Early degenerative disc disease is present without focal protrusion or neural impingement. L3-L4: Disc desiccation. Broad-based posterior disc protrusion extending up to 2.5 mm. Moderate ligamentum flavum hypertrophy and facet osteoarthropathy. Mild trefoil narrowing of the central canal. No foraminal stenosis L4-L5: Mild to moderate disc space narrowing and disc desiccation. Mild diffuse posterior disc/osteophyte complex. Moderate ligamentum flavum hypertrophy and facet osteoarthropathy. Mild central canal stenosis. No foraminal stenosis L5-S1: 5 mm anterolisthesis of L5 on S1. Moderate to severe disc space narrowing. Moderate diffuse pseudobulge. Ligamentum flavum hypertrophy and facet osteoarthropathy. No central canal stenosis. Mild bilateral foraminal stenosis MR/MR lumbar spine wo con IMPRESSION: Mild to moderate changes resulting in central and foraminal stenosis detailed above Electronically authenticated by: GISSELLE FORBES Date: 02/12/2024 10:15 Dictated By: Gisselle Forbes M.D. Signed By: 02/12/24 1018 DD/ 1015 TD/TT: Food Prep Worker: [place] [address] Magnetic Resonance Report Signed Patient: DIA KURTZ SA MR#: [id number] : 1960 Acct:[id number] Age/Sex: 63 / F ADM Date: 02/11/24 Loc: MRI Attending Dr: Jayda Padron M.D. Ordering Physician: Bulmaro Padron M.D. Date of Service: 02/11/24 Procedure(s): MR lum bar spine wo con Accession Number(s): [id number] cc: Bulmaro Padron M.D. [place] [id number] Patient Name: YAS KURTZ MRN: [id number] date: 1960 Sex: F Assigned Patient Location: MRI Current Patient Location: Accession/Order Numb er: [id number] Exam Date: 02/11/2024 15:45 Report Date: 02/12/2024 10:15 At the request of: BULMARO PADRON Procedure: MR lumbar spine wo con EXAMINATION: MR lumb ar spine wo con HISTORY: Lumbar Back Pain M54.50, Chronic Pain G89.29 COMPARISON: No relev ant comparison available. TECHNIQUE: A variety of imaging planes and parameters were utilized for visualization of suspected pathology. FINDINGS: For the purposes of numbering, sagittal T2 image # 8 extends from the T10 vertebral body superiorly to the S4 level inferiorly. PARASPINAL AREA: Nor mal with no visible mass. BONES: 5 mm anterolisthesis of L5 in relation S1. No acute fracture or bone edema. Mild degenerative spondylosis CORD/CAUDA EQUINA: Normal caliber, contour, and signal intensity. DISC LEVELS: 12-L1: Early degenerative disc disease is present without focal protrusion or neural impingement. L1-L2: Early degenerative disc disease is present without focal protrusion or neural impingement. L2-L3: Early degenerative disc disease is present without focal protrusion or neural impingement. L3-L4: Disc desiccation. Broad-based posterior disc protrusion extending up to 2.5 mm. Moderate ligamentum flavum hypertrophy and facet osteoarthropathy. Mild trefoil narrowing of the central canal. No foraminal stenosis L4-L5: Mild to moder ate disc space narrowing and disc desiccation. Mild diffuse posterior disc/osteophyte complex. Moderate ligamentum flavum hypertrophy and facet osteoarthropat hy. Mild central canal stenosis. No foraminal stenosis L5-S1: 5 mm anterolisthesis of L5 on S1. Moderate to severe disc space narrowing. Moderate diffuse pseudobulge. Ligamentum flavum hypertrophy and facet osteoarthropat hy. No central canal stenosis. Mild bilateral foraminal stenosis MR/MR lumbar spine wo con IMPRESSION: Mild to moderate changes resulting in central and foraminal stenosis detailed above Electronically authenticated by: GISSELLE FORBES Date: 02/12/2024 10:15 Dictated By: Suhail Forbes M.D. Signed By: 02/12/24 1018 DD/ 1015 TD/TT: Food Prep Worker: XR thoracic spine 2V Reviewed date:04/10/2024 08:14:29 AM Interpretation: Performing Lab: Notes/Report: Source Facility: [place] [address] XRay Report Signed Patient: YAS KURTZ MR#: [id number] : 1960 Acct:[id number] Age/Sex: 63 / F ADM Date: 04/08/24 Loc: RAD Attending Dr: Pedro Pablo Wetzel NP Ordering Physician: Pedro Pablo Wetzel NP Date of Service: 04/08/24 Procedure(s): XR thoracic spine 2V Accession Number(s): [id number] cc: Pedro Pablo Wetzel NP; Bulmaro Padron M.D. [place] [address] Patient Name: YAS KURTZ MRN: [id number] date: 1960 Sex: F Assigned Patient Location: [facility] Current Patient Location: [facility] Accession/Order Number: [id number] Exam Date: 04/08/2024 11:35 Report Date: 04/10/2024 06:20 At the request of: PEDRO PABLO WETZEL Procedure: XR thoracic spine 2V EXAMINATION: XR thoracic spine 2V HISTORY: Thoracic Spondylosis COMPARISON: No relevant comparison available. FINDINGS: BONES: Slight S-shaped curvature of the thoracic spine. No fracture, spondylolisthesis, bone lesion. DISC SPACES: Mild degenerative disc disease involving multiple midthoracic levels. PARASPINOUS: Negative. No paraspinous abnormality is seen. OTHER: Negative. XR/XR thoracic spine 2V IMPRESSION: 1. Mild curvature and mild degenerative disc disease of thoracic spine. No significant degenerative changes or acute abnormality. Electronically authenticated by: CLAUDY COBIAN Date: 04/10/2024 06:20 Dictated By: Claudy Cobian M.D. Signed By: 04/10/24621 DD/ 9 TD/TT: Food Prep Worker: [place] [address] XRay Report Signed Patient: DIA KURTZ SA MR#: [id number] : 1960 Acct:[id number] Age/Sex: 63 / F ADM Date: 04/08/24 Loc: [facility] Attending Dr: Pedro Pablo Wetzel NP Ordering Physician: Pedro Pablo Wetzel NP Date of Service: 04/08/24 Procedure(s): XR thoracic spine 2V Accession Number(s): [id number] cc: Pedro Pablo Wetzel [employer]; Bulmaro Padron M.D. [place] [address] Patient Name: YAS KURTZ MRN: [id number] date: 1960 Sex: F Assigned Patient Location: [facility] Current Patient Location: [facility] Accession/Order Numb er: [id number] Exam Date: 04/08/2024 11:35 Report Date: 04/10/2024 06:20 At the request of: PEDRO PABLO WETZEL Procedure: XR thorac ic spine 2V EXAMINATION: XR thoracic spine 2V HISTORY: Thoracic Spondylosis COMPARISON: No relev ant comparison available. FINDINGS: BONES: Slight S-shap ed curvature of the thoracic spine. No fracture, spondylolisthesis, b one lesion. DISC SPACES: Mild degenerative disc disease involving multiple midthoracic levels. PARASPINOUS: Negativ e. No paraspinous abnormality is seen. OTHER: Negative. XR/XR thoracic spine 2V IMPRESSION: 1. Mild curvature an d mild degenerative disc disease of thoracic spine. No significant degenerative changes or acute abnormality. Electronically authenticated by: CLAUDY COBIAN Date: 04/10/2024 06:20 Dictated By: Claudy Cobian M.D. 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.10) Diagnosis 2 Chronic pain (G89.29 ) Diagnosis 3 Herniated lumbar dis c without myelopathy (M51.26) Referral Organization [facility] Referring Provider First Name Geraldo Referring Provider Last Name [facility] Referring Provider [facility] Referred Provider Pain Management, [facility] Referred Provider Specialty Pain Medicin e Referral Priority Routine Medications Medication SIG (Take, Route, Frequency, Duration) Notes Start Date End Date Status Lasix 20 MG 1 tablet Orally Once a day for 30 days 01/14/2025 Active Multivitamin - 1 tablet Orally Once a day Active Ferrous Sulfate 325 (65 Fe) MG 1 tablet Orally Once a day Active Albuterol Sulfate HFA 108 (90 Base) MCG/ACT INHALE 1 PUFF BY MOUTH EVERY 4 HOURS NEEDED for 33 PRN Active Synthroid 125 MCG 1 tablet in the morn ing on an empty stomach Orally Once a day for 90 days 12/31/2022 Active Vitamin D 50 MCG (2000 UT) 10 tablet Ora lly Once a day Active Liothyronine Sodium 5 MCG Take 3 tablets by mouth once daily for 90 Active Aspir-Low 81 MG 1 tablet Orally Once a day Active Baclofen 10 MG 1 tablet as needed O rally tid for 30 days 01/14/2025 Active Social History Tobacco Use: Social History [...] Problem Status W/U Status Risk Notes Problem 575134808 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 Problem Morbid obesity (disorder) (747279358) Morbid (severe) obesity due to excess calories (E66.01) Active confirmed Problem 25602414 Other intervertebral disc degeneration, 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) Active confirmed Problem 60604049 Calculus of uret er (N20.1) Active confirmed Problem 39281364 Dysuria (R30.0) Active confirmed Problem Hyperlipidaemia (36078019) Hyperlipemia (E78.5) Active confirmed Problem Osteoarthritis (088897342) Osteoarthritis (M19.90) Active confirmed Problem Rheumatoid arthritis (32890318) Rheumatoid arthritis (M06.9) Active confirmed Problem Asthma (422037231) Asthma (J45.909) Active conf irmed Problem COPD - Chronic obstructive pulmonary disease (29860930) COPD (chronic obstructive pulmonary disease) (J44.9) Active confirmed Problem Tricuspid regurgitation (888261748) Tricuspid regurgitation (I07.1) Active confirmed Problem Hypothyroid (61490928) Hypothyroid (E03.9) Active confirmed Problem Elevated liver enzymes level (010510974) Elevated liver enzymes (R74.8) Active confirmed Problem Vitamin D deficiency (41319632) Vitamin D deficiency (E55.9) Active confirmed Problem Pedal edema (146752201) Pedal edema (R60.0) Active confirmed Problem Osteoporosis (21847176) Osteoporosis (M81.0) Active confirmed Problem Well adult (049107795) Well adult (Z00.00) Active confirmed Problem Chronic pain (27616243) Chronic pain (G89.29) Active confirmed Problem Iron deficiency anemia (82242606) Iron deficiency anemia (D50.9) Active confirmed Problem Cramp in lower limb (240129838) Leg cramps (R25.2) Active confirmed Problem Displacement of lumbar intervertebral disc without myelopathy (78511233) Herniated lumbar disc without myelopathy (M51.26) Active confirmed Problem Polyneuropathy (73787162) Polyneuropathy (G62.9) Active confirmed Problem Lumbar spondylosis (471509247) Lumbar spondylosis (M47.816) Active confirmed Problem Hernia of anterior abdominal wall (disorder) (057078182) Abdominal wall hernia (K43.9) Active confirmed Problem Immunodeficiency (750876808) Immunodeficiency (D84.9) Active confirmed Problem Acute urinary tract infection (546907599) Acute UTI (N39.0) Active confirmed Problem Osteoarthritis of knee (719612082) DJD (degenerative joint disease) of knee (M17.10) Active confirmed Vital Signs Blood pressure diastolic 88 mm Hg 01/14/2025 Height 58.75 in 01/14/2025 Blood pressure systolic 140 mm Hg 01/14/2025 Weight 224.8 lbs 01/14/2025 BMI 45.79 kg/m2 01/14/2025 Encounters Encounter Location Date Provider Diagnosis [facility] [address] [place] [address] 04/10/2024 Geraldo Hoy [facility] [address] [place] [address] 05/12/2024 Geraldo Hoy Hypothyroid E03.9 [facility] [address] [place] [address] 01/30/2024 Geraldo Hoy Hypothyroid E03.9 [facility] [address] [place] [address] 02/02/2024 Geraldo Hoy Chronic pain G89.29 and Lumbar back pain M54.50 [facility] [address] [place] [address] 02/12/2024 Geraldo Hoy [facility] [address] [place] [address] 02/12/2024 Geraldo Hoy Herniated lumbar dis c without myelopathy M51.26 and DJD (degenerative joint disease) of knee M17.10 [facility] [address] [place] [address] 02/13/2024 Geraldo Hoy DJD (degenerative shayan int disease) of knee M17.10 ; Herniated lumbar disc without myelopathy M51.26 and Chronic pain G89.29 [facility] [address] [place] [address] 03/23/2024 Geraldo Telloy [facility] [address] [place] [address] 01/30/2024 Geraldo Hoy Dysuria R30.0 ; Acut e UTI N39.0 ; Osteoarthritis M19.90 ; Hypothyroid E03.9 ; Pedal edema R60.0 and Herniated lumbar disc without myelopathy M51.26 [facility] [address] [place] [address] 01/14/2025 Geraldo Padron Morbid (severe) obes ity due to excess calories E66.01 ; Well adult Z00.00 ; Vitamin D deficiency E55.9 ; Iron deficiency anemia D50.9 ; Adrenal adenoma D35.00 and Adrenal adenoma, left D35.02 Assessments Encounter Date Diagnosis (ICD Code) Assessment Notes Treatment Notes Treatment Clinical Notes Section Notes 01/30/2024 Dysuria (ICD-10 - R30.0) 01/30/2024 Acute UTI (ICD-10 - N39.0) treating 0- if not better - trial mybetrix 01/30/2024 Hypothyroid (ICD-10 - E03.9) 02/02/2024 Chronic pain (ICD-10 - G89.29) 02/02/2024 Lumbar back pain (ICD-10 - M54.50) 02/12/2024 Herniated lumbar disc without myelopathy (ICD-10 - M51.26) 02/12/2024 DJD (degenerative joint disease) of knee (ICD-10 - M17.10) 02/13/2024 DJD (degenerative joint disease) of knee (ICD-10 - M17.10) 02/13/2024 Herniated lumbar disc without myelopathy (ICD-10 - M51.26) 01/14/2025 Morbid (severe) obesity due to excess calories (ICD-10 - E66.01) disoucsesd marjan for weihg loss 01/14/2025 Well adult (ICD-10 - Z00.00) neecs routind labs 05/12/2024 Hypothyroid (ICD-10 - E03.9) 01/14/2025 Vitamin D deficiency (ICD-10 - E55.9) 02/13/2024 Chronic pain (ICD-10 - G89.29) 01/30/2024 Osteoarthritis (ICD-10 - M19.90) 01/30/2024 Hypothyroid (ICD-10 - E03.9) lab reviewded 01/14/2025 Iron deficiency anemia (ICD-10 - D50.9) 01/14/2025 Adrenal adenoma (ICD-10 - D35.00) 01/30/2024 Pedal edema (ICD-10 - R60.0) checking la bs 01/30/2024 Herniated lumbar disc without myelopathy (ICD-10 - M51.26) needs repeat x=rays 01/14/2025 Adrenal adenoma, left (ICD-10 - D35.02) Plan Of Treatment Pending Test Test Name Order Date CMP (COMPLETE METABOLIC PANEL) HEMOGLOBIN A1C (GLYCO) 12/27/2022 HEMOGLOBIN A1C (GLYCO) 01/14/2025 IRON, TOTAL 01/14/2025 IRON, TOTAL 12/27/2022 LIPID PANEL (CHOL/TRIG/HDL/LDL) 12/28/19 23 LIPID PANEL (CHOL/TRIG/HDL/LDL) 01/15/20 25 CBC WITH DIFF 12/27/2022 VITAMIN D, 25 LEVEL (TOTAL) 12/27/2022 VITAMIN D, 25 LEVEL (TOTAL) 01/14/2025 MRI Lumbar Spine w/o contrast 02/02/2024 RHEUMATOID PANEL 12/27/2022 Insulin Level 12/27/2022 Insulin Level 01/14/2025 MRI Adrenal Glands 01/14/2025 STOOL OCCULT BLOOD 01/14/2025 STOOL OCCULT BLOOD 12/27/2022 CT Abdomen Pelvis w/ IV Contrast 023 BNP 12/27/2022 FERRITIN 01/14/2025 THYROID PROFILE WITH TSH 05/12/2024 THYROID PROFILE WITH TSH 01/30/2024 VIT B12 AND FOLATE 01/30/2024 VIT B12 AND FOLATE 01/14/2025 VITAMIN B1 (THIAMINE) 12/27/2022 VITAMIN B12 12/27/2022 VITAMIN D 25 OH 12/27/2022 VITAMIN D 25 OH 12/28/2022 XR ANKLE RT MIN 3 VIEWS 12/27/2022 XR DEXA BONE DENSITY 01/14/2025 XR LSPINE MIN 4 VIEWS 01/30/2024 THYROID PANEL (T4/TSH/FREE T3) 3 THYROID PANEL (T4/TSH/FREE T3) 4 THYROID PANEL (T4/TSH/FREE T3) 5 MM screening mammo BI 01/14/2025 CMP (COMP MET REED) w/eGFR CKD-EPI 2024 CBC WITH DIFF 01/14/2025 Insurance Providers Payer Name Payer Address Payer Phone Subscriber Number Group Number Insured Name Patient Relationship to Insured Coverage Start Date Coverage End Date [facility] [employer] [address] [place] [phone] [id number] Yas Kurtz Self - patient is the insured Medical (General) History Medical History History ICD Code Breast lump N63.0 Polyneuropathy G62.9 Osteoporosis M81.0 Rheumatoid arthritis M06.9 Osteoarthritis M19.90 Hyperlipemia E78.5 Chronic pain G89.29 Immunodeficiency D84.9 Iron deficiency anemia D50.9 COPD (chronic obstructive pulmonary dise ase) J44.9 Leg cramps R25.2 Pedal edema R60.0 Hypothyroid E03.9 Chest pain R07.9 Elevated liver enzymes R74.8 Vitamin D deficiency E55.9 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
--- OUTSIDE RECORDS SUMMARY | 2025-01-14 10:05 | XMS_ITS | Clinical Summary ---
Author Organization [facility] 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 Worker Name Role Phone Bulmaro Padron MD Primary Care Provider [phone] Allergies No known active allergies Medications levothyroxine (SYNTHROID) 112 MCG tablet Take 125 mcg by mouth Daily Active Cholecalciferol (VITAMIN D3) 2000 units CAPS Take 1 capsule by mouth daily Active aspirin 81 MG tablet Take 1 tablet by mouth daily Active Multiple Vitamins-Minera ls (MULTIVITAMIN ADULT PO) Take 1 tablet by mouth daily Active Cyanocobalamin (VITAMIN B 12) 250 MCG LOZG Take 1 tablet by mouth daily Active hydroxychloroqu ine (PLAQUENIL) 200 MG tablet Take 1 tablet by mouth 2 times daily Active liothyronine (CYTOMEL) 5 MCG tablet Take 3 tablets by mouth daily 3x 5mcg tabs daily Active ibuprofen (ADVIL;MOTRIN) 600 MG tablet Take 1 tablet by mouth every 6 hours as needed for Pain 28 tablet 01/10/2023 Active oxybutynin (DITROPAN XL) 10 MG extended release tablet Take 1 tablet by mouth daily 30 tablet 3 02/01/2023 Active Active Problems Problem Noted Date Diagnosed Date Ureteral calculus 01/11/2023 Hydroureteronephrosis 01/11/2023 Nocturia 01/11/2023 Immunizations Immunization Administration Dates Next Due TDaP, ADACEL (age 10y-64y), BOOSTRIX (age 10y+), IM, 0.5mL 01/26/2018 Family History Medical History Relation Name Comments Kidney Disease Father Relation Name Status Comments Father Social History Tobacco Use Types Packs/Day Years Used Date Smoking Tobacco: Former Smokeless Tobacco: Never Tobacco Cessation:Counseling Given: Not Answered Alcohol Use Standard Drinks/Week Comments No 0 (1 standard drink = 0.6 oz pur e alcohol) AUDIT-C Answer Date Recorded Q1: How often do you have a drink containing alcohol? Never 10/09/2022 Q2: How many drinks containi ng alcohol do you have on a typical day when you are drinking? Patient does not drink Q3: How often do you have si x or more drinks on one occasion? Never 10/09/2022 Comments No Sex and Gender Information Value Date Recorded Sex Assigned at Not on file Legal Sex Female 1:18 PM EST Gender Identity Not on file Sexual Orientation Not on file Last Filed Vital Signs Vital Sign Reading Time Taken Comments Blood Pressure 143/83 04/02/2023 2:01 PM EDT Pulse 66 04/02/2023 2:01 PM EDT Temperature 36.8 C (98.2 F) 04/02/2023 2:01 PM EDT Respiratory Rate 16 01/10/2023 5:33 PM EDT Oxygen Saturation 92% 01/10/2023 7:11 PM EDT Inhaled Oxygen Concentration - - Weight 101.2 kg (223 lb) 04/02/2023 2:01 PM EDT Height 149.9 cm (4' 11 ) 04/02/2023 2:01 PM EDT Body Mass Index 45.04 04/02/2023 2:01 PM EDT Plan of Treatment Health Maintenance Due Date Last Done Comments Depression Screen 1974 HIV screen 1977 Hepatitis C screen 1980 Pap smear 12/15/1983 Cervical cancer screen 1992 HPV (without or with Pap) 1992 Breast cancer screen 2002 Lipids 2002 Colonoscopy 12/15/2007 Colorectal Cancer Screen 12/15/2007 FIT/FOBT: Average risk 12/15/2007 Fecal-DNA (Cologuard): [facility] ge risk 12/15/2007 Sigmoidoscopy/CT colonography 12/15/2007 Pneumococcal 50+ years Vacci ne (1 of 1 - PCV) 2012 Shingles vaccine (1 of 2) 2012 Respiratory Syncytial Virus (RSV) or age 60 yrs+ (1 - Risk 60-74 years 1-dose series) 2022 COVID-19 Vaccine (1 - 2023-2 5 season) 2024 Annual Wellness Visit ([facility] [employer]) 07/15/2024 Flu vaccine (#1) 02/12/2025 DTaP/Tdap/Td vaccine (2 - Td or Tdap) 01/27/2028 01/26/2018 Hepatitis A vaccine Aged Out No longe r eligible based on patient's age to complete this topic Hepatitis B vaccine Aged Out No longe r eligible based on patient's age to complete this topic Hib vaccine Aged Out No longer eligi ble based on patient's age to complete this topic Meningococcal (ACWY) vaccine Aged Out No longer eligible based on patient's age to complete this topic Meningococcal B vaccine Aged Out No l onger eligible based on patient's age to complete this topic Polio vaccine Aged Out No longer elig ible based on patient's age to complete this topic [place] [id number] [employer] Care Teams Grout Worker Relationship Specialty Start Date End Date Bulmaro Padron MD [address] [phone] PCP - General Family Medicine 01/26/18
--- OUTSIDE RECORDS SUMMARY | 2025-01-14 10:22 | XMS_ITS | CCD ---
Author Organization [facility] CliniSyny Care Team Providers Care Network Operations Manager Name Role Phone Bulmaro Padron Primary Care Provider [phone] DR BULMARO PADRON Admitting Unavailable VITO, DR [...] Consulting Unavailable VITO, DR CHAMBERLAIN Admitting Unavailable HOY, DR CHAMBERLAIN Attending Unavailable HOY, DR CHAMBERLAIN Primary Care Unavailable HOY, DR CHAMBERLAIN Consulting Unavailable ZIEBER, DR CLAUDY Guzmán Consulting Unavailable VITO, DR CHAMBERLAIN Admitting Unavailable HOKaren, DR CHAMBERLAIN Attending Unavailable VITO, DR CHAMBERLAIN Primary Care Unavailable VITO, DR CHAMBERLAIN Consulting Unavailable Bulmaro Padron MD Primary Care Provider [phone] GABBIE WHITE Referring Unavailable BULMARO PADRON Primary Care Unavailable JORDYN EATON Attending Unavailable BULMARO PADRON Primary Care Unavailable BULMARO PADRON Primary Care Unavailable ARMIDA AGEE Referring Unavailable BULMARO PADRON Primary Care Unavailable Aayush MENDOZA Attending Unavailable Bulmaro Padron Referring Unavailable Sam DAVILA, Akira Girard Attending Unavailable Sam DAVILA, Andmissy Girard Attending Unavailable Sam DAVILA, Andrius Girard Attending Unavailable Sam DAVILA, Akira Girard Attending Unavailable Allergies Allergy Classification Reported Allergen(s) Allergy Type Date of Onset Reaction(s) Facility (1 source) Bee/Wasp/Ant venom; Translations: [Bee Stings] Propensity to adverse reactions (disorder) [facility] Repository (1 source) No Known Medication Allergies; Translations: [No Known Medication Allergies] Propensity to adverse reactions (disorder) [facility] Repository Medications Current Medications Medication [...] disorders (2 sources) Diarrhea; Translations: [Diarrhea] Onset: 03-28-2023 Episodic Results Test Name Value Interpretation Reference [...] us for your care. Normal [facility] RAD - CT Reporton 05-23-2023 RAD - CT Report [id number] 0TIFF Normal [facility] Patient Letter FTMCon 2022 Patient Letter [facility] May 16, 2023 YAS KURTZ [address] [place] [address] : 1960 Dear Ms. Kurtz, Thank you for choosing [facility] for your healthcare needs. Your consultation appointment with Dr Aayush Mendoza is scheduled for 05/28/23 at 10am. We are located in the [place] [address] building, 2nd floor, [address]. A map is enclosed. Please bring your insurance card, a photo ID, and any co-pay you are responsible for to this first appointment. If you have any questions, please call us at [phone]. We look forward to seeing you soon. Sincerely, [place] [address], [address] [place] [address]. [place] [address] [facility] Consultation Noteon 05-01-20 23 Consultation Note [id number] 0TIFF Normal [facility] Physician Referralon 023 Physician Referral [id number] 0TIFF Normal [facility] Cult,Urineon 04-03-2023 Cult,Urine Specimen Description .CLEAN CATCH URINE Culture NO SIGNIFICANT GROWTH Report Status FINAL 04/03/2023 [facility] Comment on above: Performed By: #### B C #### [facility] [address] [place], [place] [id number] Oyster Planter: Stu Baires MD Trichomonas/Wet Prepon 04-02 Trichomonas/Wet Prep Specimen Description .VAGINA Direct Exam NO YEAST OBSERVED NO TRICHOMONAS SEEN NO CLUE CELLS SEEN Report Status FINAL 04/02/2023 Normal [facility] Comment on above: Performed By: #### W P #### [facility] [address] [place] [address] Oyster Planter: Stu Baires MD Cult,Urineon 02-03-2023 Cult,Urine Specimen Description .CLEAN CATCH URINE Culture NO SIGNIFICANT GROWTH Report Status FINAL 02/02/2023 [facility] Comment on above: Performed By: #### U RC #### [facility] [address] [place], [place] [id number] Oyster Planter: Victor Manuel Be MD [facility] [address] [place] [address] Oyster Planter: Stu Baires MD Culture, Urineon 02-02-2023 Microorganism identified Cx Nom (Unsp spec) NO SIGNIFICANT GROWTH [facility] Specimen Description .CLEAN CATCH URINE [facility] CT ABDOMEN PELVIS WO CONTRAS [...] Ar Graves MD 02/01/23 Final result Normal [facility] CBC with Auto Differentialon 01-10-2023 Basophils (Bld) [#/Vol] 0.03 10*3/uL [facility] Basophils/100 WBC (Bld) 0 % 0 - 2 % [facility] Eosinophils (Bld) [#/Vol] 0.03 10*3/uL [facility] Eosinophils/100 WBC (Bld) 0 % Low 1 - 4 % [facility] Erythrocyte distribution width (RBC) [Ratio] 12.6 % 11.8 - 14.4 % [facility] Hematocrit (Bld) [Volume fraction] 43.5 % 36.3 - 47.1 % [facility] Hemoglobin (Bld) [Mass/Vol] 14.4 g/dL 11.9 - 15.1 g/dL [facility] Immature granulocytes (Bld) [#/Vol] [facility] Immature granulocytes/100 WBC (Bld) 0 % 0 [facility] Interpretation and review of laboratory results Abnormal [facility] Lymphocytes/100 WBC (Bld) 11 % Low 24 - 43 % [facility] Lymphocytes/100 WBC (Bld) 0.90 % Low [facility] MCH (RBC) [Entitic mass] 31.5 pg 25.2 - 33.5 pg [facility] MCHC (RBC) [Mass/Vol] 33.1 g/dL 28.4 - 34.8 g/dL [facility] MCV (RBC) [Entitic vol] 95.2 fL 82.6 - 102.9 fL [facility] Monocytes/100 WBC (Bld) 5 % 3 - 12 % [facility] Monocytes/100 WBC (Bld) 0.44 % [facility] Neutrophils/100 WBC (Bld) 84 % High 36 - 65 % [facility] Nucleated RBC/100 WBC (Bld) [Ratio] 0.0 % 0.0 per 100 WBC [facility] Platelet mean volume (Bld) [Entitic vol] 10.8 fL 8.1 - 13.5 fL [facility] Platelets (Bld) [#/Vol] 210 10*3/uL [facility] RBC (Bld) [#/Vol] 4.57 10*6/uL 3.95 - 5.1 1 m/uL [facility] Segmented neutrophils/100 WBC (Bld) 7.13 % [facility] WBC other (Bld) [#/Vol] 8.6 [facility] CBC with Diffon 01-10-2023 Abs. Basophil 0.03 k/uL Normal 0.00-0.20 [facility] Comment on above: Performed By: #### C DP, CP #### [address] [place] [address] Oyster Planter: Stu Baires MD Abs.Imm.Granulocyte <0.03 Normal 0.00-0.30 [facility] Comment on above: Performed By: #### C DP, CP #### [address] [place] [address] Oyster Planter: Stu Baires MD Abs.Neutrophil (Seg) 7.13 k/uL Normal 1.50-8.10 [facility] Comment on above: Performed By: #### C DP, CP #### [address] [place], [place] [phone] Oyster Planter: Stu Baires MD Basophils/100 WBC (Bld) 0 % Normal 0-2 [facility] Comment on above: Performed By: #### C DP, CP #### [facility] [address] [place] [address] [place] [address] Oyster Planter: Stu Baires MD Eosinophils (Bld) [#/Vol] 0.03 10*3/uL Normal 0.00-0.44 [facility] Comment on above: Performed By: #### C DP, CP #### [address] [place] [address] Oyster Planter: Stu Baires MD Eosinophils/100 WBC (Bld) 0 % Low 1-4 [facility] Comment on above: Performed By: #### C DP, CP #### [facility] [address] [place] [address] [place], [place] [phone] Oyster Planter: Stu Baires MD Erythrocyte distribution width (RBC) [Ratio] 12.6 % Normal 11.8-14.4 [facility] Comment on above: Performed By: #### C DP, CP #### [facility] [address] [place] [address] [place], [place] [phone] Oyster Planter: Stu Baires MD Hematocrit (Bld) [Volume fraction] 43.5 % Normal 36.3-47.1 [facility] Comment on above: Performed By: #### C DP, CP #### [address] [place] [phone] Oyster Planter: Stu Baires MD Hemoglobin (Bld) [Mass/Vol] 14.4 g/dL Normal 11.9-15.1 [facility] Comment on above: Performed By: #### C DP, CP #### [address] [place], [place] [phone] Oyster Planter: Stu Baires MD Immature granulocytes/100 WBC (Bld) 0 % Normal 0 [facility] Comment on above: Performed By: #### C DP, CP #### [facility] [address] [place] [address] [place], [place] [phone] Oyster Planter: Stu Baires MD Lymphocytes (Bld) [#/Vol] 0.90 10*3/uL Low 1.10-3.70 [facility] Comment on above: Performed By: #### C DP, CP #### [address] [place], [place] 9[address]83 Oyster Planter: Stu Baires MD Lymphocytes/100 WBC (Bld) 11 % Low 24-43 [facility] Comment on above: Performed By: #### C DP, CP #### [facility] [address] [place], [facility]83 Oyster Planter: Stu Baires MD MCH (RBC) [Entitic mass] 31.5 pg Normal 25.2-33.5 [facility] Comment on above: Performed By: #### C DP, CP #### [facility] [address] [place], [place] [address] Oyster Planter: Stu Baires MD MCHC (RBC) [Mass/Vol] 33.1 g/dL Normal 28.4-34.8 [facility] Comment on above: Performed By: #### C DP, CP #### [facility] [address] [place], [place] [address] Oyster Planter: Stu Baires MD MCV (RBC) [Entitic vol] 95.2 fL Normal 82.6-102.9 [facility] Comment on above: Performed By: #### C DP, CP #### [facility] [address] [place], [facility]83 Oyster Planter: Stu Baires MD Monocytes (Bld) [#/Vol] 0.44 10*3/uL Normal 0.10-1.20 [facility] Comment on above: Performed By: #### C DP, CP #### [facility] [address] [place], [facility]83 Oyster Planter: Stu Baires MD Monocytes/100 WBC (Bld) 5 % Normal 3-12 [facility] Comment on above: Performed By: #### C DP, CP #### [facility] [address] [place], [facility]83 Oyster Planter: Stu Baires MD Neutrophil (Seg) 84 % High 36-[address] [facility] Comment on above: Performed By: #### C DP, CP #### [facility] [address] [place], [place] [address]83 Oyster Planter: Stu Baires MD NRBC Automated 0.0 per 100 WBC Normal 0.0 [facility] Comment on above: Performed By: #### C DP, CP #### [facility] [address] [place], [place] [phone] Oyster Planter: Stu Baires MD Platelet mean volume (Bld) [Entitic vol] 10.8 fL Normal 8.1-13.5 [facility] Comment on above: Performed By: #### C DP, CP #### [facility] [address] [place], [facility]83 Oyster Planter: Stu Baires MD Platelets (Bld) [#/Vol] 210 10*3/uL Normal 138-453 [facility] Comment on above: Performed By: #### C DEMETRIO, CP #### [address] [place], [facility]83 Oyster Planter: Sut Baires MD RBC (Bld) [#/Vol] 4.57 10*6/uL Normal 3.95-5.11 [facility] Comment on above: Performed By: #### C DEMETRIO, CP #### [address] [place], [facility]83 Oyster Planter: Stu Baires MD WBC (Bld) [#/Vol] 8.6 10*3/uL Normal 3.5-11.3 [facility] Comment on above: Performed By: #### C DP, CP #### [facility] [address] [place], [place] [phone] Oyster Planter: Stu Baires MD CMPon 01-10-2023 Albumin [Mass/Vol] 4.3 g/dL 3.5 - 5.2 g/dL [facility] Albumin/Globulin [Mass ratio] 1.4 {ratio} 1.0 - 2.5 [facility] ALP [Catalytic activity/Vol] 97 U/L 35 - 104 U/L [facility] ALT [Catalytic activity/Vol] 29 U/L 5 - 33 U/L [facility] Anion gap [Moles/Vol] 8 mmol/L Low 9 - 17 mmol/L [facility] AST [Catalytic activity/Vol] 25 U/L NINF - 32 U/L [facility] Bilirubin [Mass/Vol] 0.3 mg/dL 0.3 - 1.2 mg/dL [facility] Calcium [Mass/Vol] 9.3 mg/dL 8.6 - 10. 4 mg/dL [facility] Chloride [Moles/Vol] 105 mmol/L 98 - 107 mmol/L [facility] CO2 [Moles/Vol] 25 mmol/L 20 - 31 mmol/L [facility] Creatinine [Mass/Vol] 0.51 mg/dL 0.50 - 0.90 mg/dL [facility] GFR/1.73 sq M.predicted MDRD (S/P/Bld) [Vol rate/Area] - PINF [facility] Comment on above: These results are [...] 140 mg/dL High 70 - 99 mg/dL [facility] Interpretation and review of laboratory results Abnormal [facility] Potassium [Moles/Vol] 4.3 mmol/L 3.7 - 5.3 mmol/L [facility] Protein [Mass/Vol] 7.4 g/dL 6.4 - 8.3 g/dL [facility] Sodium [Moles/Vol] 138 mmol/L 135 - 144 mmol/L [facility] Urea nitrogen [Mass/Vol] 13 mg/dL 8 - 23 mg/dL [facility] Urea nitrogen/Creatinine [Mass ratio] 25 mg/mg High 9 - [address] [facility] [address] ABDOMEN PELVIS WO CONTRAS [...] Enrico Armstrong MD 01/10/23 Final result Normal [facility] CT ABDOMEN PELVIS WO CONTRAS T Additional Contrast? Noneon 01-10-2023 1. 2 mm stone at the right ureterovesical junction with mild hydroureteronephrosis. 2. 1.6 cm left adrenal nodule unchanged from 2018 compatible with a benign adenoma. No follow-up recommended. [facility] EXAMINATION: CT OF THE ABDOMEN AND [...] No acute osseous or soft tissue abnormality. [facility] Enrico Armstrong MD - 01/10/2023 EXAMINATION: [...] with a benign adenoma. No follow-up recommended. [facility] Radiology Study observation (narrative) [facility] CT ABDOMEN PELVIS WO CONTRAS T Additional Contrast? NoneOrdered By: Enrico Armstrong on 01-10-2023 [facility] Work Phone: Comp Metabolic Profon 2022 Albumin [Mass/Vol] 4.3 g/dL Normal 3.5-5.2 [facility] Comment on above: Performed By: #### B C #### [facility] [address] [place], [place] [phone] Oyster Planter: Stu Baires MD Albumin/Glob Ratio 1.4 Normal 1.0-2.5 [facility] Comment on above: Performed By: #### B C #### [facility] [address] [place], [place] [id number] Oyster Planter: Stu Baires MD Alkaline Phos 97 U/L Normal 35-104 [facility] Comment on above: Performed By: #### B C #### [facility] [address] [place], [place] [address]99[address] Oyster Planter: Stu Baires MD ALT [Catalytic activity/Vol] 29 U/L Normal 5-33 [facility] Comment on above: Performed By: #### B C #### [facility] [address] [place], [place] [phone] Oyster Planter: Stu Baires MD Anion gap [Moles/Vol] 8 mmol/L Low 9-17 [facility] Comment on above: Performed By: #### B C #### [facility] [address] [place] [address] [place]. [place], [place] [phone] Oyster Planter: Stu Baires MD AST [Catalytic activity/Vol] 25 U/L Normal <32 [facility] Comment on above: Performed By: #### B C #### [facility] [address] [place], [place] [phone] Oyster Planter: Stu Baires MD Bilirubin [Mass/Vol] 0.3 mg/dL Normal 0.3-1.2 [facility] Comment on above: Performed By: #### B C #### [facility] [address] [place], [place] [phone] Oyster Planter: Stu Baires MD BUN/CRE Ratio 25 High 9-20 [facility] Comment on above: Performed By: #### B C #### [facility] [address] [place] [address] Oyster Planter: Stu Baires MD Calcium [Mass/Vol] 9.3 mg/dL Normal 8.6-10.4 [facility] Comment on above: Performed By: #### B C #### [facility] [address] [place], [place] [address] Oyster Planter: Stu Baires MD Chloride [Moles/Vol] 105 mmol/L Normal 98-107 [facility] Comment on above: Performed By: #### B C #### [facility] [address] [place] [address] Oyster Planter: Stu Baires MD CO2 [Moles/Vol] 25 mmol/L Normal 20-31 [facility] Comment on above: Performed By: #### B C #### [facility] [address] [place] [address] Oyster Planter: Stu Baires MD Creatinine [Mass/Vol] 0.51 mg/dL Normal 0.50-0.90 [facility] Comment on above: Performed By: #### B C #### [facility] [address] [place] [address] Oyster Planter: Stu Baires MD GFR/1.73 sq M.predicted among non-blacks MDRD (S/P/Bld) [Vol rate/Area] mL/min/{1.73_m2} Normal >60 [facility] Comment on above: Result Comment: These [...] By: #### B C #### [facility] [address] [place], [place] 616[address]83 Oyster Planter: Stu Baires MD Glucose [Mass/Vol] 140 mg/dL High 70-99 [facility] Comment on above: Performed By: #### B C #### [facility] [address] [place], [place] [phone] Oyster Planter: Stu Baires MD Potassium [Moles/Vol] 4.3 mmol/L Normal 3.7-5.3 [facility] Comment on above: Performed By: #### B C #### [facility] [address] [place] [address] [place], [place] [phone] Oyster Planter: Stu Baires MD Protein [Mass/Vol] 7.4 g/dL Normal 6.4-8.3 [facility] Comment on above: Performed By: #### B C #### [facility] [address] [place] [address] [place], [place] [phone] Oyster Planter: Stu Baires MD Sodium [Moles/Vol] 138 mmol/L Normal 135-144 [facility] Comment on above: Performed By: #### B C #### [address] [place], [place] [address]64[address]83 Oyster Planter: Stu Baires MD Urea nitrogen [Mass/Vol] 13 mg/dL Normal 8-23 [facility] Comment on above: Performed By: #### B C #### [facility] [address] [place] [address] [place] [address] Oyster Planter: Stu Baires MD Microscopic Urinalysison Bacteria LM Ql (Urine sed) TRACE Abnormal None [facility] Epithelial cells LM.HPF (Urine sed) [#/Area] 0 TO 2 [facility] Interpretation and review of laboratory results Abnormal [facility] RBC LM.HPF (Urine sed) [#/Area] 0 TO 2 [facility] WBC LM.HPF (Urine sed) [#/Area] 10 TO 20 [facility] Urinalysison 01-10-2023 Bilirubin Ql (U) Negative NEGATIVE [facility] Clarity (U) Clear Clear [facility] Color (U) Yellow Yellow [facility] Glucose Test strip (U) [Mass/Vol] Negative NEGATIVE [facility] Hemoglobin Auto test strip Ql (U) Negative NEGATIVE [facility] Interpretation and review of laboratory results Abnormal [facility] Ketones (U) [Mass/Vol] Negative NEGATIVE [facility] Leukocyte esterase Test strip Ql (U) SMALL Abnormal NEGATIVE [facility] Nitrite Ql (U) Negative NEGATIVE [facility] pH (U) 5.5 [pH] 5.0 - 9.0 [facility] Protein (U) [Mass/Vol] Negative NEGATIVE [facility] Specific gravity (U) [Rel density] High 1.010 - 1.020 [facility] Urobilinogen Qn (U) Normal Normal [facility] Urinalysis, Routineon 2022 Bilirubin, SemiQt,Ur Negative Normal NEG [facility] Comment on above: Performed By: #### B C #### [facility] [address] [place] [address] [place] [address] Oyster Planter: Stu Baires MD Blood, Urine Negative Normal NEG [facility] Comment on above: Performed By: #### B C #### [facility] [address] [place] [address] Oyster Planter: Stu Baires MD Clarity (U) Clear Normal CLEAR [facility] Comment on above: Performed By: #### B C #### [facility] [address] [place] [address] Oyster Planter: Stu Baires MD Color (U) Yellow Normal YEL [facility] Comment on above: Performed By: #### B C #### [facility] [address] [place], [place] [phone] Oyster Planter: Stu Baires MD Glucose Ql (U) Negative Normal NEG [facility] in Hospital Comment on above: Performed By: #### B C #### [facility] [address] [place] [address] [place], [place] [phone] Oyster Planter: Stu Baires MD Ketones Ql (U) Negative Normal NEG [facility] Comment on above: Performed By: #### B C #### [facility] [address] [place] [address] [place], [place] 7167983 Oyster Planter: Stu Baires MD Leukocyte esterase Test strip Ql (U) SMALL Abnormal NEG [facility] Comment on above: Performed By: #### B C #### [facility] [address] [place] [address] [place] [address] Oyster Planter: Stu Baires MD Nitrite,Ur Negative Normal NEG [facility] Comment on above: Performed By: #### B C #### [facility] [address] [place] [address] [place] [address] Oyster Planter: Stu Baires MD PH,Ur 5.5 Normal 5.0-9.0 [facility] Comment on above: Performed By: #### B C #### [facility] [address] [place] [address] [place], [place] [phone] Oyster Planter: Stu Baires MD Protein Ql (U) Negative Normal NEG [facility] Comment on above: Performed By: #### B C #### [facility] [address] [place] [address] [place], [place] [phone] Oyster Planter: Stu Baires MD Spec. [place],Ur >1.030 High 1.010-1.020 [facility] Comment on above: Performed By: #### B C #### [facility] [address] [place] [address] Dr[place], [place] [phone] Oyster Planter: Stu Baires MD Urobilinogen,Ur Normal Normal NORM [facility] Comment on above: Performed By: #### B C #### [facility] [address] [place], [place] [phone] Oyster Planter: Stu Baires MD Urinalysis,Microon 3 Bacteria TRACE Abnormal NONE [facility] Comment on above: Performed By: #### B C #### [facility] [address] [place], [place] 9152983 Oyster Planter: Stu Baires MD Epithelial cells LM Ql (Urine sed) 0 TO 2 Normal 0-25 [facility] Comment on above: Performed By: #### B C #### [facility] [address] [place], [place] [phone] Oyster Planter: Stu Baires MD Urine RBC's 0 TO 2 Normal 0-2 [facility] Comment on above: Performed By: #### B C #### [facility] [address] [place], [place] [phone] Oyster Planter: Stu Baires MD Urine WBC's 10 TO 20 Normal 0-5 [facility] Comment on above: Performed By: #### B C #### [facility] [address] [place], [place] 1446583 Oyster Planter: Stu Baires MD Cult, Bloodon 10-14-2022 Cult, Blood Specimen Description .BLOOD Special Requests 10ML LHAND Culture NO GROWTH 5 DAYS Report Status FINAL 10/14/2022 Normal [facility] Comment on above: Performed By: #### B C #### [facility] [address] [place], [place] [phone] Oyster Planter: Stu Baires MD Cult,Bloodon 10-14-2022 Cult,Blood Specimen Description .BLOOD Special Requests 14ml rfa Culture NO GROWTH 5 DAYS Report Status FINAL 10/14/2022 Normal [facility] Comment on above: Performed By: #### B C #### [facility] [address] [place], [facility]83 Oyster Planter: Stu Baires MD CBC with Diffon 10-09-2022 Abs. Basophil 0.03 k/uL Normal 0.00-0.20 [facility] Comment on above: Performed By: #### C P, CDP #### [address] [address] M[place]ain, [place] [address] Oyster Planter: Stu Baires MD Abs.Imm.Granulocyte <0.03 Normal 0.00-0.30 [facility] Comment on above: Performed By: #### C P, CDP #### [address] [place]ain, [place] [address] Oyster Planter: Stu Baires MD Abs.Neutrophil (Seg) 2.53 k/uL Normal 1.50-8.10 [facility] Comment on above: Performed By: #### C P, CDP #### [address] Mccain, [facility]83 Oyster Planter: Stu Baires MD Basophils/100 WBC (Bld) 1 % Normal 0-2 [facility] Comment on above: Performed By: #### C P, CDP #### [address] Mccain, [place] [address] Oyster Planter: Stu Baires MD Eosinophils (Bld) [#/Vol] 0.06 10*3/uL Normal 0.00-0.44 [facility] Comment on above: Performed By: #### C P, CDP #### [address] Mccain, [facility]83 Oyster Planter: Stu Baires MD Eosinophils/100 WBC (Bld) 2 % Normal 1-4 [facility] Comment on above: Performed By: #### C P, CDP #### [address] Mccain, [facility]83 Oyster Planter: Stu Baires MD Erythrocyte distribution width (RBC) [Ratio] 13.0 % Normal 11.8-14.4 [facility] Comment on above: Performed By: #### C P, CDP #### [facility] [address] [place] [address] Dr[place], [place] [id number] Oyster Planter: Stu Baires MD Hematocrit (Bld) [Volume fraction] 38.9 % Normal 36.3-47.1 [facility] Comment on above: Performed By: #### C P, CDP #### [facility] [address] [place] [address] Dr. [place], [place] [id number] Oyster Planter: Stu Baires MD Hemoglobin (Bld) [Mass/Vol] 13.2 g/dL Normal 11.9-15.1 [facility] Comment on above: Performed By: #### C P, CDP #### [address] Mccain, [facility]83 Oyster Planter: Stu Baires MD Immature granulocytes/100 WBC (Bld) 1 % High 0 [facility] Comment on above: Performed By: #### C P, CDP #### [address] [place], [place] 8273283 Oyster Planter: Stu Baires MD Lymphocytes (Bld) [#/Vol] 0.71 10*3/uL Low 1.10-3.70 [facility] Comment on above: Performed By: #### C P, CDP #### [address] [place], [place] [id number] Oyster Planter: Stu Baires MD Lymphocytes/100 WBC (Bld) 18 % Low 24-43 [facility] Comment on above: Performed By: #### C P, CDP #### [address] [place], [place] [id number] Oyster Planter: Stu Baires MD MCH (RBC) [Entitic mass] 32.0 pg Normal 25.2-33.5 [facility] Comment on above: Performed By: #### C P, CDP #### [facility] [address] [place] [address] Dr. Mccain, [place] [address] Oyster Planter: Stu Baires MD MCHC (RBC) [Mass/Vol] 33.9 g/dL Normal 28.4-34.8 [facility] Comment on above: Performed By: #### C P, CDP #### [facility] [address] [place], [facility]83 Oyster Planter: Stu Baires MD MCV (RBC) [Entitic vol] 94.2 fL Normal 82.6-102.9 [facility] Comment on above: Performed By: #### C P, CDP #### [address] [place] [id number] Oyster Planter: Stu Baires MD Monocytes (Bld) [#/Vol] 0.56 10*3/uL Normal 0.10-1.20 [facility] Comment on above: Performed By: #### C P, CDP #### [address] Mccain, [place] [address] Oyster Planter: Stu Baires MD Monocytes/100 WBC (Bld) 14 % High 3-12 [facility] Comment on above: Performed By: #### C P, CDP #### [address] Mccain, [place] [address] Oyster Planter: Stu Baires MD Neutrophil (Seg) 64 % Normal 36-[address] [facility] Comment on above: Performed By: #### C P, CDP #### [address] Mccain, [facility]83 Oyster Planter: Stu Baires MD NRBC Automated 0.0 per 100 WBC Normal 0.0 [facility] Comment on above: Performed By: #### C P, CDP #### [address] [place], [place] 284[address]3 Oyster Planter: Stu Baires MD Platelet mean volume (Bld) [Entitic vol] 11.1 fL Normal 8.1-13.5 [facility] Comment on above: Performed By: #### C P, CDP #### [facility] [address] [place] [address] Oyster Planter: Stu Baires MD Platelets (Bld) [#/Vol] 221 10*3/uL Normal 138-453 [facility] Comment on above: Performed By: #### C P, CDP #### [facility] [address] [place] [address] Oyster Planter: Stu Baires MD RBC (Bld) [#/Vol] 4.13 10*6/uL Normal 3.95-5.11 [facility] Comment on above: Performed By: #### C P, CDP #### [address] [place], [place] [phone] Oyster Planter: Stu Baires MD WBC (Bld) [#/Vol] 3.9 10*3/uL Normal 3.5-11.3 [facility] Comment on above: Performed By: #### C P, CDP #### [address] [place], [place] [phone] Oyster Planter: Stu Baires MD Comp Metabolic Profon 2022 Albumin [Mass/Vol] 3.4 g/dL Low 3.5-5.2 [facility] Comment on above: Performed By: #### C P, CDP #### [facility] [address] [place], [place] [id number] Oyster Planter: Stu Baires MD Albumin/Glob Ratio 1.2 Normal 1.0-2.5 [facility] Comment on above: Performed By: #### C P, CDP #### [facility] [address] [place], [place] [phone] Oyster Planter: Stu Baires MD Alkaline Phos 108 U/L High 35-104 [facility] Comment on above: Performed By: #### C P, CDP #### [facility] [address] [place], [place] [id number] Oyster Planter: Stu Baires MD ALT [Catalytic activity/Vol] 30 U/L Normal 5-33 [facility] Comment on above: Performed By: #### C P, CDP #### [facility] [address] [place], [place] [phone] Oyster Planter: Stu Baires MD Anion gap [Moles/Vol] 8 mmol/L Low 9-17 [facility] Comment on above: Performed By: #### C P, CDP #### [facility] [address] [place], [place] [phone] Oyster Planter: Stu Baires MD AST [Catalytic activity/Vol] 29 U/L Normal <32 [facility] Comment on above: Performed By: #### C P, CDP #### [facility] [address] [place], [place] [phone] Oyster Planter: Stu Baires MD Bilirubin [Mass/Vol] 0.5 mg/dL Normal 0.3-1.2 [facility] Comment on above: Performed By: #### C P, CDP #### [facility] [address] [place], [place] 9235583 Oyster Planter: Stu Baires MD BUN/CRE Ratio 18 Normal 9-20 [facility] Comment on above: Performed By: #### C P, CDP #### [facility] [address] [place], [place] 8361983 Oyster Planter: Stu Baires MD Calcium [Mass/Vol] 8.4 mg/dL Low 8.6-10.4 [facility] Comment on above: Performed By: #### C P, CDP #### [facility] [address] [place] [address] Oyster Planter: Stu Baires MD Chloride [Moles/Vol] 105 mmol/L Normal 98-107 [facility] Comment on above: Performed By: #### C P, CDP #### [facility] [address] [place] [address] Oyster Planter: Stu Baires MD CO2 [Moles/Vol] 23 mmol/L Normal 20-31 [facility] Comment on above: Performed By: #### C P, CDP #### [facility] [address] [place] [address] Oyster Planter: Stu Baires MD Creatinine [Mass/Vol] 0.49 mg/dL Low 0.50-0.90 [facility] Comment on above: Performed By: #### C P, CDP #### [facility] [address] [place] [address] Oyster Planter: Stu Baires MD GFR/1.73 sq M.predicted among non-blacks MDRD (S/P/Bld) [Vol rate/Area] mL/min/{1.73_m2} Normal >60 [facility] Comment on above: Result Comment: These [...] #### C P, CDP #### [facility] [address] [place] [address] Oyster Planter: Stu Baires MD Glucose [Mass/Vol] 102 mg/dL High 70-99 [facility] Comment on above: Performed By: #### C P, CDP #### [facility] [address] [place] [address] Dr. [place], [place] 0636483 Oyster Planter: Stu Baires MD Potassium [Moles/Vol] 3.6 mmol/L Low 3.7-5.3 [facility] Comment on above: Performed By: #### C P, CDP #### [facility] [address] [place] [address] Dr. [place], [place] [phone] Oyster Planter: Stu Baires MD Protein [Mass/Vol] 6.2 g/dL Low 6.4-8.3 [facility] Comment on above: Performed By: #### C P, CDP #### [address] [place], [place] 1310183 Oyster Planter: Stu Baires MD Sodium [Moles/Vol] 136 mmol/L Normal 135-144 [facility] Comment on above: Performed By: #### C P, CDP #### [address] [place], [place] 2885783 Oyster Planter: Stu Baires MD Urea nitrogen [Mass/Vol] 9 mg/dL Normal 6-20 [facility] Comment on above: Performed By: #### C P, CDP #### [address] [place], [place] [phone] Oyster Planter: Stu Baires MD Lactic Acidon 10-09-2022 Lactate [Moles/Vol] 1.0 mmol/L Normal 0.5-2.2 [facility] Comment on above: Performed By: #### L ACTIC #### [facility] [address] [place] [address] Dr. [place], [place] [phone] Oyster Planter: Stu Baires MD Urinalysis, Routineon 2022 Bilirubin, SemiQt,Ur Negative Normal NEG [facility] Comment on above: Performed By: #### U MICAO, UA #### [facility] [address] [place], [place] [phone] Oyster Planter: Stu Baires MD Blood, Urine Negative Normal NEG [facility] Comment on above: Performed By: #### U MICAO, UA #### [facility] [address] [place] [address] Dr. [place], [place] [phone] Oyster Planter: Stu Baires MD Clarity (U) Clear Normal CLEAR [facility] Comment on above: Performed By: #### U MICAO, UA #### [facility] [address] [place] [address] Dr. [place], [place] [phone] Oyster Planter: Stu Baires MD Color (U) Yellow Normal YEL [facility] Comment on above: Performed By: #### U MICAO, UA #### [facility] [address] [place] [address] Dr. [place], [place] [phone] Oyster Planter: Stu Baires MD Glucose Ql (U) Negative Normal NEG [facility] Comment on above: Performed By: #### U MICAO, UA #### [facility] [address] [place] [address] Dr. [place], [place] [phone] Oyster Planter: Stu Baires MD Ketones Ql (U) Negative Normal NEG [facility] Comment on above: Performed By: #### U MICAO, UA #### [address] [place], [place] [phone] Oyster Planter: Stu Baires MD Leukocyte esterase Test strip Ql (U) TRACE Abnormal NEG [facility] Comment on above: Performed By: #### U MICAO, UA #### [facility] [address] [place] [address] Dr. [place], [place] [phone] Oyster Planter: Stu Baires MD Nitrite,Ur Negative Normal NEG [facility] Comment on above: Performed By: #### U MICAO, UA #### [facility] [address] [place] [address] Dr. [place], [place] [phone] Oyster Planter: Stu Baires MD PH,Ur 6.0 Normal 5.0-9.0 [facility] Comment on above: Performed By: #### U MICAO, UA #### [facility] [address] [place], [place] [phone] Oyster Planter: Stu Baires MD Protein Ql (U) 1+ Abnormal NEG [facility] Comment on above: Performed By: #### U MICAO, UA #### [facility] [address] [place], [place] [phone] Oyster Planter: Stu Baires MD Spec. [place],Ur >1.030 High 1.010-1.020 [facility] Comment on above: Performed By: #### U MICAO, UA #### [facility] [address] [place] [address] Dr. [place], [place] [phone] Oyster Planter: Stu Baires MD Urobilinogen,Ur Normal Normal NORM [facility] Comment on above: Performed By: #### U MICAO, UA #### [facility] [address] [place] [address] Dr. [place], [place] [phone] Oyster Planter: Stu Baires MD Urinalysis,Microon 3 Bacteria 2+ Abnormal NONE [facility] Comment on above: Performed By: #### U MICAO, UA #### [facility] [address] [place] [address] [place] [address] Oyster Planter: Stu Baires MD Epithelial cells LM Ql (Urine sed) 2 TO 5 Normal 0-25 [facility] Comment on above: Performed By: #### U MICAO, UA #### [facility] [address] [place], [place] [phone] Oyster Planter: Stu Baires MD Mucus Strands 1+ Abnormal NONE [facility] Comment on above: Performed By: #### U MICAO, UA #### [facility] [address] [place], [place] [phone] Oyster Planter: Stu Baires MD Urine RBC's None Normal 0-2 [facility] Comment on above: Performed By: #### U TISHAO, UA #### [facility] [address] [place] [address] Oyster Planter: Stu Baires MD Urine WBC's 2 TO 5 Normal 0-5 [facility] Comment on above: Performed By: #### U TISHAO, UA #### [facility] [address] [place] [address] Oyster Planter: Stu Baires MD FREE T3on 06-19-2022 FREE T3 4.07 pg/mlL Critically high 2.18-3.98 [facility] Comment on above: Performed By: #### T 4, FT3, TSH ####[facility] [address] [place] [address]Dr. Vicenta Bryant T4on 06-19-2022 T4 [Mass/Vol] 7.70 ug/dL Normal 4.80-13.90 [facility] Comment on above: Performed By: #### T 4, FT3, TSH ####[facility] [address] [place] [address]DrPablo Vicenta Bryant TSHon 06-19-2022 TSH 4.022 uIU/mL Critically high 0.358-3.740 [facility] Comment on above: Performed By: #### T 4, FT3, TSH ####[facility] [address] [place] [address]Dr. Vicenta Bryant FREE T3on 05-23-2022 FREE T3 3.87 pg/mlL Normal 2.18-3.98 [facility] Comment on above: Performed By: #### T SH, FT3, T4 #### [facility] [address] [place] [address] [address] Vicenta Bryant T4on 05-23-2022 T4 [Mass/Vol] 7.00 ug/dL Normal 4.80-13.90 [facility] Comment on above: Performed By: #### T SH, FT3, T4 #### [facility] [address] [place] [address] [address] Vicenta Bryant TSHon 05-23-2022 TSH 4.402 uIU/mL Critically high 0.358-3.740 [facility] Comment on above: Performed By: #### T SH, FT3, T4 #### [facility] [address] [place] [address] [address] Vicenta Bryant MG MAMM DX FLAQUITA 3D FU CADon 0 03-28-2022 MG MAMM DX FLAQUITA 3D FU CAD Patient: YAS KURTZ Exam Date: 03/28/2022 : 1960 Gender:F Ordering : DR BULMARO PADRON . Admission #: [id number] Family : Order #: [id number] CLICK HERE TO VIEW EXAM RADIOLOGY REPORT [...] lung cancer at age 57. LOCATION: [facility] BREAST COMPOSITION: Almost entirely fatty. [...] M.D. on 03/28/2022 at 11:35 Normal [facility] OCC BLD IMMUNO SCREENon 03-15 OCCULT BLOOD Negative Normal NEGATIVE [facility] Comment on above: Performed By: #### O BSCRN #### [facility] [address] [place], [place] [address] Dr. Vicenta Bryant INSULINon 03-07-2022 Insulin 10.8 uIU/mL Normal 2.6-24.9 [facility] Comment on above: Performed By: #### I NSULIN #### [facility] [address] [place], [place] [address] Dr. Vicenta Bryant T4, T3U, FTI [facility] 03-07 Free Thyroxine Index 1.9 Normal 1.2-4.9 [facility] Comment on above: Performed By: #### T HYLC ####[facility] [address] [place], [place] [address]ObPablo Bryant T3 Uptake 25 % Normal 24-39 [facility] Comment on above: Performed By: #### T HYLC ####[facility] [address] [place], [place] [address]ClPablo Bryant T4 [Mass/Vol] 7.6 ug/dL Normal 4.5-12.0 [facility] Comment on above: Performed By: #### T HYLC ####[facility] [address] [place], [place] [address]PtDr. Vicenta Bryant VIT D 25-OH [facility] 2021 Vitamin D, 25-Hydroxy 24.3 ng/mL Critically low 30.0-100.0 [facility] Comment on above: Result Comment: Susi min D deficiency has been defined by the [place] of Medicine and an Endocrine Society practice guideline as a level of serum 25-OH vitamin D less than 20 ng/mL (1,2). The Endocrine Society went on to further define vitamin D insufficiency as a level between 21 and 29 ng/mL (2). 1. IOM ([place] of Medicine). 2010. Dietary reference intakes for calcium and D. [place]: The National Academies Press. 2. Dea MF, Angelika VELASQUEZ, Shawn SHEARER, et al. Evaluation, treatment, and prevention of vitamin D deficiency: an Endocrine Society clinical practice guideline. JCEM. 2010; 96(7):1911-30. Performed By: #### V ITADLC ####[facility] [address] [place] [address]Dr. Vicenta Bryant CBC AUTO DIFFon 03-06-2022 BASO # 0.0 103/ul Normal 0.0-0.1 [facility] Comment on above: Performed By: #### C BC #### [facility] [address] [place] [address] [address] Vicenta Bryant Basophils/100 WBC (Bld) 0.6 % Normal 0.2-2.0 [facility] Comment on above: Performed By: #### C BC #### [facility] [address] [place] [address] [address] Vicenta Bryant EO # 0.1 103/ul Normal 0.0-0.7 [facility] Comment on above: Performed By: #### C BC #### [facility] [address] [place] [address] [address] Vicenta Bryant Eosinophils/100 WBC (Bld) 1.1 % Normal 0.9-7.0 [facility] Comment on above: Performed By: #### C BC #### [facility] [address] [place] [address] [address] Vicenta Bryant Erythrocyte distribution width (RBC) [Ratio] 12.6 % Normal 11.0-15.0 [facility] Comment on above: Performed By: #### C BC #### [facility] [address] [place] [address] [address] Vicenta Bryant Hematocrit (Bld) [Volume fraction] 41.1 % Normal 36.0-48.0 [facility] Comment on above: Performed By: #### C BC #### [facility] [address] [place] [address] [address] Vicenta Bryant Hemoglobin (Bld) [Mass/Vol] 13.4 g/dL Normal 12.0-16.0 [facility] Comment on above: Performed By: #### C BC #### [facility] [address] [place] [address] [address] Vicenta Bryant IG # 0.01 10e3/ul Normal 0.00-0.03 [facility] Comment on above: Performed By: #### C BC #### [facility] [address] [place] [address] Dr. Vicenta Bryant IG % 0.2 % Normal 0.0-0.5 [facility] Comment on above: Performed By: #### C BC #### [facility] [address] [place] [address] Dr. Vicenta Bryant LYMPH # 1.6 103/ul Normal 1.2-3.8 [facility] Comment on above: Performed By: #### C BC #### [facility] [address] [place] [address] Dr. Vicenta Bryant Lymphocytes/100 WBC (Bld) 25.6 % Normal 20.5-60.0 [facility] Comment on above: Performed By: #### C BC #### [facility] [address] [place] [address] Dr. Vicenta Bryant MANUAL DIFF REQ NO Normal [facility] Comment on above: Performed By: #### C BC #### [facility] [address] [place] [address] Dr. Vicenta Bryant MCH (RBC) [Entitic mass] 31.0 pg Normal 26.7-34.0 [facility] Comment on above: Performed By: #### C BC #### [facility] [address] [place] [address] Dr. Vicenta Bryant MCHC (RBC) [Mass/Vol] 32.6 g/dL Normal 29.9-35.2 [facility] Comment on above: Performed By: #### C BC #### [facility] [address] [place] [address] Dr. Vicenta Bryant MCV (RBC) [Entitic vol] 95.1 fL Normal 81.0-99.0 [facility] Comment on above: Performed By: #### C BC #### [facility] [address] [place] [address] Dr. Vicenta Bryant MONO # 0.5 103/ul Normal 0.3-0.8 [facility] Comment on above: Performed By: #### C BC #### [facility] [address] [place] [address] Dr. Vicenta Bryant Monocytes/100 WBC (Bld) 7.8 % Normal 1.7-12.0 [facility] Comment on above: Performed By: #### C BC #### [facility] [address] [place] [address] Dr. Vicenta Bryant NEUT # 4.0 103/ul Normal 1.4-6.5 [facility] Comment on above: Performed By: #### C BC #### [facility] [address] [place] [address] Dr. Vicenta Bryant Neutrophils/100 WBC (Bld) 64.7 % Normal 43.0-75.0 [facility] Comment on above: Performed By: #### C BC #### [facility] [address] [place] [address] Dr. Vicenta Bryant Platelet mean volume (Bld) [Entitic vol] 10.8 fL Normal 9.5-13.5 [facility] Comment on above: Performed By: #### C BC #### [facility] [address] [place] [address] Dr. Vicenta Bryant PLT 210 103/ul Normal 150-450 [facility] Comment on above: Performed By: #### C BC #### [facility] [address] [place] [address] Dr. Vicenta Bryant RBC 4.32 106/ul Normal 4.20-5.40 [facility] Comment on above: Performed By: #### C BC #### [facility] [address] [place] [address] Dr. Vicenta Bryant WBC 6.2 103/ul Normal 4.0-11.0 [facility] Comment on above: Performed By: #### C BC #### [facility] [address] [place] [address] Dr. Vicenta Bryant GLYCOHEMOGLOBIN A1Con 2021 ADA RECOMMENDATION SEE BELOW Normal [facility] Comment on above: Result Comment: ADA RECOMMENDED LIMIT 4.0 - 6.0 ADA THERAPEUTIC TARGET < 7.0 ACTION SUGGESTED > 7.0 Performed By: #### A 1C #### [facility] [address] [place], [place] [address] Dr. Vicenta Bryant Glucose [Mass/Vol] 91 mg/dL Normal [facility] Comment on above: Performed By: #### A 1C #### [facility] [address] [place], [place] [address] Dr. Vicneta Bryant HbA1c (Bld) [Mass fraction] 4.8 % Normal 4.5-6.2 [facility] Comment on above: Performed By: #### A 1C #### [facility] [address] [place] [id number] Vicenta Bryant IRONon 03-06-2022 Iron [Mass/Vol] 73.0 ug/dL Normal 50.0-170.0 [facility] Comment on above: Performed By: #### B 12FOL, IRON ####[facility] [address] [place] [id number]. Vicenta Bryant LIPID PROFILEon 03-06-2022 CHOL-HDL RATIO NORM SEE BELOW Normal [place] Comment on above: Result Comment: 3.3 - 4.4 LOW RISK 4.4 - 7.1 AVERAGE RISK 7.1 - 11.0 MODERATE RISK >11.0 HIGH RISK Performed By: #### L IPID, TSH, CMP ####[facility] [address] [place] [id number]. Vicenta Bryant Cholesterol [Mass/Vol] 134 mg/dL Normal <=200 [facility] Comment on above: Performed By: #### L IPID, TSH, CMP ####[facility] [address] [place] [id number]. Vicenta Bryant Cholesterol in HDL [Mass/Vol] 41 mg/dL Normal 40-60 [facility] Comment on above: Performed By: #### L IPID, TSH, CMP ####[facility] [address] [place] [id number]. Vicenta Bryant Cholesterol in LDL [Mass/Vol] 81.2 mg/dL Normal [facility] Comment on above: Performed By: #### L IPID, TSH, CMP ####[facility] [facility] [address] [place] [id number]. Vicenta Bryant Cholesterol.total/C holesterol in HDL [Mass ratio] 3.3 {ratio} Normal [facility] Comment on above: Performed By: #### L IPID, TSH, CMP ####[facility] [address] [place] [address]Dr. Vicenta Bryant HDL NORMAL > or = 60 mg/dl - LO W CARDIOVASCULAR RISK <40 mg/dl - HIGH CARDIOVASCULAR RISK Normal [facility] Comment on above: Performed By: #### L IPID, TSH, CMP ####[facility] [address] [place] [address]Dr. Vicenta Bryant LDL CALC NORMAL SEE BELOW Normal [facility] Comment on above: Result Comment: <100 mg/dl OPTIMAL 100 - 129 mg/dl NEAR OR ABOVE OPTIMAL 130 - 159 mg/dl BORDERLINE HIGH 160 - 189 mg/dl HIGH >190 mg/dl VERY HIGH Performed By: #### L IPID, TSH, CMP ####[facility] [address] [place] [address]Dr. Vicenta Bryant Triglyceride [Mass/Vol] 59 mg/dL Normal <=150 [facility] Comment on above: Performed By: #### L IPID, TSH, CMP ####[facility] [address] [place] [address]Dr. Vicenta Bryant VLDL CALC 11.8 mg/dL Normal [facility] Comment on above: Performed By: #### L IPID, TSH, CMP ####[facility] [address] [place] [address]Dr. Vicenta Bryant PROF 14(COMP METB)on 022 Albumin [Mass/Vol] 3.7 g/dL Normal 3.4-5.0 [facility] Comment on above: Performed By: #### L IPID, TSH, CMP ####[facility] [address] [place] [address]Dr. Vicenta Bryant Albumin/Globulin [Mass ratio] 1.1 {ratio} Normal [facility] Comment on above: Performed By: #### L IPID, TSH, CMP ####[facility] [address] [place] [address]Dr. Vicenta Bryant ALP [Catalytic activity/Vol] 115 U/L Normal 46-116 [facility] Comment on above: Performed By: #### L IPID, TSH, CMP ####[facility] [address] [place] [address]Dr. Vicenta Bryant ALT [Catalytic activity/Vol] 38 U/L Normal 14-59 [facility] Comment on above: Performed By: #### L IPID, TSH, CMP ####[facility] [address] [place], [place] [address]Dr. Vicenta Bryant Anion gap [Moles/Vol] 12.4 mmol/L Normal [facility] Comment on above: Performed By: #### L IPID, TSH, CMP ####[facility] [address] [place], [place] [address]Dr. Vicenta Bryant AST [Catalytic activity/Vol] 27 U/L Normal 15-37 [facility] Comment on above: Performed By: #### L IPID, TSH, CMP ####[facility] [address] [place], [place] [address]Dr. Vicenta Bryant Bilirubin [Mass/Vol] 0.3 mg/dL Normal 0.2-1.0 [facility] Comment on above: Performed By: #### L IPID, TSH, CMP ####[facility] [address] [place], [place] [address]Dr. Vicenta Bryant Calcium [Mass/Vol] 8.9 mg/dL Normal 8.5-10.1 [facility] Comment on above: Performed By: #### L IPID, TSH, CMP ####[facility] X[address] [place], [place] [address]Dr. Vicenta Bryant Chloride [Moles/Vol] 104 mmol/L Normal 98-107 [facility] Comment on above: Performed By: #### L IPID, TSH, CMP ####[facility] [address] [place], [place] [address]Dr. Vicenta Bryant CO2 [Moles/Vol] 27.8 mmol/L Normal 21.0-32.0 [facility] Comment on above: Performed By: #### L IPID, TSH, CMP ####[facility] [address] [place] [address]Dr. Vicenta Bryant Creatinine [Mass/Vol] 0.53 mg/dL Critically low 0.55-1.02 [facility] Comment on above: Performed By: #### L IPID, TSH, CMP ####[facility] [address] [place] [address]Dr. Vicenta Manny EGFR-AF BRUNEIAN >60 Normal >=60 [facility] Comment on above: Performed By: #### L IPID, TSH, CMP ####[facility] Qfnph[address] [place], [place] [address]Dr. Vicenta Bryant EGFR-NON AF BRUNEIAN >60 Normal >=60 [facility] Comment on above: Performed By: #### L IPID, TSH, CMP ####[facility] Ausve[address] [place], [place] [address]Dr. Vicenta Bryant Globulin (S) [Mass/Vol] 3.3 g/dL Normal [facility] Comment on above: Performed By: #### L IPID, TSH, CMP ####[facility] [address] [place], [place] [address]Dr. Vicenta Bryant Glucose [Mass/Vol] 88 mg/dL Normal 74-106 [facility] Comment on above: Performed By: #### L IPID, TSH, CMP ####[facility] [address] [place], [place] [address]Dr. Vicenta Bryant Potassium [Moles/Vol] 4.4 mmol/L Normal 3.5-5.1 [facility] Comment on above: Performed By: #### L IPID, TSH, CMP ####[facility] [address] [place], [place] [address]Dr. Vicenta Bryant Protein [Mass/Vol] 7.0 g/dL Normal 6.4-8.2 [facility] Comment on above: Performed By: #### L IPID, TSH, CMP ####[facility] [address] [place], [place] [address]Dr. Vicenta Bryant Sodium [Moles/Vol] 139 mmol/L Normal 136-145 [facility] Comment on above: Performed By: #### L IPID, TSH, CMP ####[facility] [address] [place] [address]Dr. Vicenta Bryant Urea nitrogen [Mass/Vol] 10.0 mg/dL Normal 7.0-18.0 [facility] Comment on above: Performed By: #### L IPID, TSH, CMP ####[facility] [address] [place] [address]Dr. Vicenta Bryant Urea nitrogen/Creatinine [Mass ratio] 18.8 mg/mg Normal [facility] Comment on above: Performed By: #### L IPID, TSH, CMP ####[facility] [address] [place] [address]Dr. Vicenta Bryant TSHon 03-06-2022 TSH 4.364 uIU/mL Critically high 0.358-3.740 [facility] Comment on above: Performed By: #### L IPID, TSH, CMP ####[facility] [address] [place] [address]Dr. Vicenta Bryant VIT B12 AND FOLATEon 022 Cobalamin (Vitamin B12) [Mass/Vol] 761.0 pg/mL Normal 193.0-986.0 [facility] Comment on above: Performed By: #### B 12FOL, IRON ####[facility] [address] [place] [address]Dr. Vicenta Bryant FOLATE 15.40 ng/mL Normal 8.60-58.90 [facility] Comment on above: Performed By: #### B 12FOL, IRON ####[facility] [address] [place] [address]Dr. Vicenta Manny MAMMO POST BIOPSY LEFTon MAMMO POST BIOPSY LEFT Patient: YAS KURTZ Exam Date: 07/25/2021 : 1960 Gender:F Ordering : DR BULMARO PADRON . Admission #: [id number] Family : Order #: [id number] CLICK HERE TO VIEW EXAM This report [...] Cobian M.D. on 08/03/2021 at 07:08 Normal [facility] US VAC ASST BX BRST LT W CLI Aryan 07-25-2021 US VAC ASST BX BRST LT W CLIP Patient: YAS KURTZ Exam Date: 07/25/2021 : 1960 Gender:F Ordering : DR BULMARO PADRON . Admission #: [id number] Family : Order #: [id number] CLICK HERE TO VIEW EXAM This report [...] M.D. on 08/03/2021 at 07:07 Normal [facility] MG MAMM LT DIAG W CADon 01-0 MG MAMM LT DIAG W CAD Patient: YAS KURTZ Exam Date: 07/20/2021 : 1960 Gender:F Ordering : DR BULMARO PADRON . Admission #: [id number] Family : Order #: [id number] CLICK HERE TO VIEW EXAM RADIOLOGY REPORT [...] lung cancer at age 57. LOCATION: [facility] BREAST COMPOSITION: Almost entirely fatty. [...] M.D. on 07/20/2021 at 15:20 Normal [facility] US BREAST LEFT LIMITEDon US BREAST LEFT LIMITED Patient: YAS KURTZ Exam Date: 07/20/2021 : 1960 Gender:F Ordering : DR BULMARO PADRON . Admission #: [id number] Family : Order #: [id number] CLICK HERE TO VIEW EXAM RADIOLOGY REPORT [...] lung cancer at age 57. LOCATION: [facility] BREAST COMPOSITION: Almost entirely fatty. [...] Cobian M.D. on 07/20/2021 at 15:20 Normal [facility] JOSE Antinuclear Antibodieson 08-08-2020 JOSE IFA Note 1 Normal . [facility] Comment on above: Order Comment: Speci men Comment: Test(s) 850030-Liff-X3 SLIDER ASSEMBLER (Fibrillarin)(RDL) Specimen Comment: was developed and its performance characteristics Specimen Comment: determined by [facility]. It has not been cleared or approved Specimen Comment: by the Food and Drug Administration. Specimen Comment: Test(s) 217169-Ufbo-TC/Scl-75 Ab (RDL) Specimen Comment: was developed and [...] titers Nucleosomes, Histones Drug-induced SLE Speckled Sm, SLIDER ASSEMBLER, SCL-70, SLE,MCTD,PSS (diffuse form), SS-A/SS-B Sjogrens Nucleolar SCL-70, PM-1/SCL High titers Scleroderma, PM/DM Centromere Centromere PSS (limited form) w/Crest syndrome variable Nuclear Dot Sp100,h92-cstoxp Primary Biliary Cirrhosis Nuclear GP210, Primary Biliary Cirrhosis Membrane rosi A,B,C Performed at: [facility] [address] [id number] Oyster Planter: David Pace PhD, Phone: [phone] Performed By: #### A NTIR, RNA POLYMR, HEP C, ANTI TH TO, HBCAB, PM-SCL ABS, U3 SLIDER ASSEMBLER, HBSAG, HBSAB, JOSE #### [facility] , #### CRP, CK, CMP #### [address] Antinuclear Abs, IFA Positive Critically abnormal . [facility] Comment on above: Order Comment: Speci men Comment: Test(s) 493233-Ryck-B4 SLIDER ASSEMBLER (Fibrillarin)(RDL) Specimen Comment: was developed and its performance characteristics Specimen Comment: determined by [facility]. It has not been cleared or approved Specimen Comment: by the Food and Drug Administration. Specimen Comment: Test(s) 614705-Zfpb-WW/Scl-75 Ab (RDL) Specimen Comment: was developed and its performance characteristics Specimen Comment: determined by [facility]. It has not been cleared or approved Specimen Comment: by the Food and Drug Administration. Result Comment: Nega tive <1:80 Borderline 1:80 Positive >1:80 Performed By: #### A NTIR, RNA POLYMR, HEP C, ANTI TH TO, HBCAB, PM-SCL ABS, U3 SLIDER ASSEMBLER, HBSAG, HBSAB, JOSE #### [facility] , #### CRP, CK, CMP #### [address] Speckled Pattern 1:640 High . [facility] Comment on above: Order Comment: Speci men Comment: Test(s) 426512-Vtrq-U6 SLIDER ASSEMBLER (Fibrillarin)(RDL) Specimen Comment: was developed and its performance characteristics Specimen Comment: determined by [facility]. It has not been cleared or approved Specimen Comment: by the Food and Drug Administration. Specimen Comment: Test(s) 831725-Eptd-HJ/Scl-75 Ab (RDL) Specimen Comment: was developed and its performance characteristics Specimen Comment: determined by [facility]. It has not been cleared or approved Specimen Comment: by the Food and Drug Administration. Performed By: #### A NTIR, RNA POLYMR, HEP C, ANTI TH TO, HBCAB, PM-SCL ABS, U3 SLIDER ASSEMBLER, HBSAG, HBSAB, JOSE #### [facility] , #### CRP, CK, CMP #### [place] [address] [place] Anti-RNPon 08-08-2020 Anti-SLIDER ASSEMBLER <0.2 Normal 0.0-0.9 [facility] Comment on above: Order Comment: Speci men Comment: Test(s) 184186-Xdig-F8 SLIDER ASSEMBLER (Fibrillarin)(RDL) Specimen Comment: was developed and its performance characteristics Specimen Comment: determined by [facility]. It has not been cleared or approved Specimen Comment: by the Food and Drug Administration. Specimen Comment: Test(s) 382244-Wfgx-CI/Scl-75 Ab (RDL) Specimen Comment: was developed and its performance characteristics Specimen Comment: determined by [facility]. It has not been cleared or approved Specimen Comment: by the Food and Drug Administration. Result Comment: Perf ormed at: [facility] [address], [place], [place] [id number] Oyster Planter: David Pace PhD, Phone: [phone] Performed By: #### A NTIR, RNA POLYMR, HEP C, ANTI TH TO, HBCAB, PM-SCL ABS, U3 SLIDER ASSEMBLER, HBSAG, HBSAB, JOSE #### [facility] , #### CRP, CK, CMP #### [address] C-Reactive Proteinon CRP [Mass/Vol] 0.6 mg/dL Normal 0.0-1.0 [facility] Comment on above: Result Comment: PERF ORMED BY: [place] [address] PATHOLOGIST SOFTWARE PUBLISHER BEAU JOHNSON M.D. Performed By: #### A NTIR, RNA POLYMR, HEP C, ANTI TH TO, HBCAB, PM-SCL ABS, U3 SLIDER ASSEMBLER, HBSAG, HBSAB, JOSE #### [facility] , #### CRP, CK, CMP #### [address] Complement C3on 08-08-2020 Complement C3 125 mg/dL Normal 82-167 [facility] Comment on above: Result Comment: Perf ormed at: [facility] [address] [id number] Oyster Planter: David Pace PhD, Phone: [phone] Performed By: #### A NTIR, RNA POLYMR, HEP C, ANTI TH TO, HBCAB, PM-SCL ABS, U3 SLIDER ASSEMBLER, HBSAG, HBSAB, JOSE #### [facility] , #### CRP, CK, CMP #### [address] Complement C4on 08-08-2020 Complement C4 17 mg/dL Normal 12-38 [facility] Comment on above: Performed By: #### A NTIR, RNA POLYMR, HEP C, ANTI TH TO, HBCAB, PM-SCL ABS, U3 SLIDER ASSEMBLER, HBSAG, HBSAB, JOSE #### [facility] , #### CRP, CK, CMP #### [address] Complement Total (CH50)on Complement Total (CH50) >60 Normal >41 [facility] Comment on above: Result Comment: Age Male [...] determine out of range values. Performed at: [facility] [address] [id number] Oyster Planter: David Pace PhD, Phone: [phone] PERFORMED BY: [place] [address] PATHOLOGIST SOFTWARE PUBLISHER BEAU JOHNSON M.D. Performed By: #### A NTIR, RNA POLYMR, HEP C, ANTI TH TO, HBCAB, PM-SCL ABS, U3 SLIDER ASSEMBLER, HBSAG, HBSAB, JOSE #### [facility] , #### CRP, CK, CMP #### [address] Complete Blood Count Auto Di ffon 08-08-2020 Basophils (Bld) [#/Vol] 0.0 10*3/uL Normal 0.0-0.2 [facility] Comment on above: Performed By: #### A NTIR, RNA POLYMR, HEP C, ANTI TH TO, HBCAB, PM-SCL ABS, U3 SLIDER ASSEMBLER, HBSAG, HBSAB, JOSE #### [facility] , #### CRP, CK, CMP #### [address] Basophils/100 WBC (Bld) 0.4 % Normal . [facility] Comment on above: Performed By: #### A NTIR, RNA POLYMR, HEP C, ANTI TH TO, HBCAB, PM-SCL ABS, U3 SLIDER ASSEMBLER, HBSAG, HBSAB, JOSE #### [facility] , #### CRP, CK, CMP #### [address] Eosinophils (Bld) [#/Vol] 0.0 10*3/uL Normal 0.0-0.45 [facility] Comment on above: Performed By: #### A NTIR, RNA POLYMR, HEP C, ANTI TH TO, HBCAB, PM-SCL ABS, U3 SLIDER ASSEMBLER, HBSAG, HBSAB, JOSE #### [facility] , #### CRP, CK, CMP #### [address] Eosinophils/100 WBC (Bld) 0.6 % Normal . [facility] Comment on above: Performed By: #### A NTIR, RNA POLYMR, HEP C, ANTI TH TO, HBCAB, PM-SCL ABS, U3 SLIDER ASSEMBLER, HBSAG, HBSAB, JOSE #### [facility] , #### CRP, CK, CMP #### [address] Erythrocyte distribution width (RBC) [Ratio] 12.7 % Normal 11.9-15.3 [facility] Comment on above: Performed By: #### A NTIR, RNA POLYMR, HEP C, ANTI TH TO, HBCAB, PM-SCL ABS, U3 SLIDER ASSEMBLER, HBSAG, HBSAB, JOSE #### [facility] , #### CRP, CK, CMP #### [address] Hematocrit (Bld) [Volume fraction] 40.9 % Normal 34.0-46.4 [facility] Comment on above: Performed By: #### A NTIR, RNA POLYMR, HEP C, ANTI TH TO, HBCAB, PM-SCL ABS, U3 SLIDER ASSEMBLER, HBSAG, HBSAB, JOSE #### [facility] , #### CRP, CK, CMP #### [address] Hemoglobin (Bld) [Mass/Vol] 13.5 g/dL Normal 11.8-15.4 [facility] Comment on above: Performed By: #### A NTIR, RNA POLYMR, HEP C, ANTI TH TO, HBCAB, PM-SCL ABS, U3 SLIDER ASSEMBLER, HBSAG, HBSAB, JOSE #### [facility] , #### CRP, CK, CMP #### [address] Lymphocytes (Bld) [#/Vol] 1.7 10*3/uL Normal 1.00-4.8 [facility] Comment on above: Performed By: #### A NTIR, RNA POLYMR, HEP C, ANTI TH TO, HBCAB, PM-SCL ABS, U3 SLIDER ASSEMBLER, HBSAG, HBSAB, JOSE #### [facility] , #### CRP, CK, CMP #### [address] Lymphocytes/100 WBC (Bld) 25.7 % Normal . [facility] Comment on above: Performed By: #### A NTIR, RNA POLYMR, HEP C, ANTI TH TO, HBCAB, PM-SCL ABS, U3 SLIDER ASSEMBLER, HBSAG, HBSAB, JOSE #### [facility] , #### CRP, CK, CMP #### [address] MCH (RBC) [Entitic mass] 32.9 g/dL Normal 32.0-35.0 [facility] Comment on above: Performed By: #### A NTIR, RNA POLYMR, HEP C, ANTI TH TO, HBCAB, PM-SCL ABS, U3 SLIDER ASSEMBLER, HBSAG, HBSAB, JOSE #### [facility] , #### CRP, CK, CMP #### [address] MCH (RBC) [Entitic mass] 31.1 pg Normal 24.7-34.3 [facility] Comment on above: Performed By: #### A NTIR, RNA POLYMR, HEP C, ANTI TH TO, HBCAB, PM-SCL ABS, U3 SLIDER ASSEMBLER, HBSAG, HBSAB, JOSE #### [facility] , #### CRP, CK, CMP #### [address] MCV (RBC) [Entitic vol] 94.4 fL Normal 80-100 [facility] Comment on above: Performed By: #### A NTIR, RNA POLYMR, HEP C, ANTI TH TO, HBCAB, PM-SCL ABS, U3 SLIDER ASSEMBLER, HBSAG, HBSAB, JOSE #### [facility] , #### CRP, CK, CMP #### [address] Monocytes (Bld) [#/Vol] 0.6 10*3/uL Normal 0.0-0.8 [facility] Comment on above: Performed By: #### A NTIR, RNA POLYMR, HEP C, ANTI TH TO, HBCAB, PM-SCL ABS, U3 SLIDER ASSEMBLER, HBSAG, HBSAB, JOSE #### [facility] , #### CRP, CK, CMP #### [address] Monocytes/100 WBC (Bld) 8.9 % Normal . [facility] Comment on above: Performed By: #### A NTIR, RNA POLYMR, HEP C, ANTI TH TO, HBCAB, PM-SCL ABS, U3 SLIDER ASSEMBLER, HBSAG, HBSAB, JOSE #### [facility] , #### CRP, CK, CMP #### [address] Neutrophils (Bld) [#/Vol] 4.2 10*3/uL Normal 1.8-7.7 [facility] Comment on above: Performed By: #### A NTIR, RNA POLYMR, HEP C, ANTI TH TO, HBCAB, PM-SCL ABS, U3 SLIDER ASSEMBLER, HBSAG, HBSAB, JOSE #### [facility] , #### CRP, CK, CMP #### [address] Neutrophils/100 WBC (Bld) 64.4 % Normal . [facility] Comment on above: Performed By: #### A NTIR, RNA POLYMR, HEP C, ANTI TH TO, HBCAB, PM-SCL ABS, U3 SLIDER ASSEMBLER, HBSAG, HBSAB, JOSE #### [facility] , #### CRP, CK, CMP #### [address] Nucleated RBC/100 WBC (Bld) [Ratio] 0.1 % Normal 0-0.5 [facility] Comment on above: Performed By: #### A NTIR, RNA POLYMR, HEP C, ANTI TH TO, HBCAB, PM-SCL ABS, U3 SLIDER ASSEMBLER, HBSAG, HBSAB, JOSE #### [facility] , #### CRP, CK, CMP #### [address] Platelet mean volume (Bld) [Entitic vol] 9.8 fL Normal 6.3-10.7 [facility] Comment on above: Performed By: #### A NTIR, RNA POLYMR, HEP C, ANTI TH TO, HBCAB, PM-SCL ABS, U3 SLIDER ASSEMBLER, HBSAG, HBSAB, JOSE #### [facility] , #### CRP, CK, CMP #### [address] Platelets (Bld) [#/Vol] 206 10*3/uL Normal 150-450 [facility] Comment on above: Performed By: #### A NTIR, RNA POLYMR, HEP C, ANTI TH TO, HBCAB, PM-SCL ABS, U3 SLIDER ASSEMBLER, HBSAG, HBSAB, JOSE #### [facility] , #### CRP, CK, CMP #### [address] [place] [address] [place] RBC (Bld) [#/Vol] 4.33 10*6/uL Normal 3.60-5.00 [facility] Comment on above: Performed By: #### A NTIR, RNA POLYMR, HEP C, ANTI TH TO, HBCAB, PM-SCL ABS, U3 SLIDER ASSEMBLER, HBSAG, HBSAB, JOSE #### [facility] , #### CRP, CK, CMP #### [facility] [address] WBC (Bld) [#/Vol] 6.5 10*3/uL Normal 3.8-11.6 [facility] Comment on above: Performed By: #### A NTIR, RNA POLYMR, HEP C, ANTI TH TO, HBCAB, PM-SCL ABS, U3 SLIDER ASSEMBLER, HBSAG, HBSAB, JOSE #### [facility] , #### CRP, CK, CMP #### [address] Comprehensive Metabolic Pane lilian 08-08-2020 Albumin [Mass/Vol] 4.1 g/dL Normal 3.2-5.5 [facility] Comment on above: Performed By: #### A NTIR, RNA POLYMR, HEP C, ANTI TH TO, HBCAB, PM-SCL ABS, U3 SLIDER ASSEMBLER, HBSAG, HBSAB, JOSE #### [facility] , #### CRP, CK, CMP #### [address] Albumin/Globulin [Mass ratio] 1.9 {ratio} Normal [facility] Comment on above: Performed By: #### A NTIR, RNA POLYMR, HEP C, ANTI TH TO, HBCAB, PM-SCL ABS, U3 SLIDER ASSEMBLER, HBSAG, HBSAB, JOSE #### [facility] , #### CRP, CK, CMP #### [facility] [address] ALP [Catalytic activity/Vol] 81 U/L Normal 32-92 [facility] Comment on above: Performed By: #### A NTIR, RNA POLYMR, HEP C, ANTI TH TO, HBCAB, PM-SCL ABS, U3 SLIDER ASSEMBLER, HBSAG, HBSAB, JOSE #### [facility] , #### CRP, CK, CMP #### [address] ALT [Catalytic activity/Vol] 35 U/L Normal 10-60 [facility] Comment on above: Performed By: #### A NTIR, RNA POLYMR, HEP C, ANTI TH TO, HBCAB, PM-SCL ABS, U3 SLIDER ASSEMBLER, HBSAG, HBSAB, JOSE #### [facility] , #### CRP, CK, CMP #### [address] AST [Catalytic activity/Vol] 25 U/L Normal 10-42 [facility] Comment on above: Performed By: #### A NTIR, RNA POLYMR, HEP C, ANTI TH TO, HBCAB, PM-SCL ABS, U3 SLIDER ASSEMBLER, HBSAG, HBSAB, JOSE #### [facility] , #### CRP, CK, CMP #### [address] Bilirubin [Mass/Vol] 0.4 mg/dL Normal 0.3-1.2 [facility] Comment on above: Performed By: #### A NTIR, RNA POLYMR, HEP C, ANTI TH TO, HBCAB, PM-SCL ABS, U3 SLIDER ASSEMBLER, HBSAG, HBSAB, JOSE #### [facility] , #### CRP, CK, CMP #### [address] Calcium [Mass/Vol] 9.2 mg/dL Normal 8.2-10.2 [facility] Comment on above: Performed By: #### A NTIR, RNA POLYMR, HEP C, ANTI TH TO, HBCAB, PM-SCL ABS, U3 SLIDER ASSEMBLER, HBSAG, HBSAB, JOSE #### [facility] , #### CRP, CK, CMP #### [address] Chloride [Moles/Vol] 106 mmol/L Normal 95-114 [facility] Comment on above: Performed By: #### A NTIR, RNA POLYMR, HEP C, ANTI TH TO, HBCAB, PM-SCL ABS, U3 SLIDER ASSEMBLER, HBSAG, HBSAB, JOSE #### [facility] , #### CRP, CK, CMP #### [address] CO2 [Moles/Vol] 28.1 mmol/L Normal 22.0-30.0 [facility] Comment on above: Performed By: #### A NTIR, RNA POLYMR, HEP C, ANTI TH TO, HBCAB, PM-SCL ABS, U3 SLIDER ASSEMBLER, HBSAG, HBSAB, JOSE #### [facility] , #### CRP, CK, CMP #### [address] Creatinine [Mass/Vol] 0.64 mg/dL Normal 0.44-1.03 [facility] Comment on above: Performed By: #### A NTIR, RNA POLYMR, HEP C, ANTI TH TO, HBCAB, PM-SCL ABS, U3 SLIDER ASSEMBLER, HBSAG, HBSAB, JOSE #### [facility] , #### CRP, CK, CMP #### [address] Estimated GFR ( Tari > 60 Normal [facility] Comment on above: Result Comment: GFR estimated reference range: According to KDOQI guidelines, <60 ml/min/1.73m2 is sufficient to diagnose a patient with chronic kidney disease. Performed By: #### A NTIR, RNA POLYMR, HEP C, ANTI TH TO, HBCAB, PM-SCL ABS, U3 SLIDER ASSEMBLER, HBSAG, HBSAB, JOSE #### [facility] , #### CRP, CK, CMP #### [address] Estimated GFR (Non- Am > 60 Normal [facility] Comment on above: Performed By: #### A NTIR, RNA POLYMR, HEP C, ANTI TH TO, HBCAB, PM-SCL ABS, U3 SLIDER ASSEMBLER, HBSAG, HBSAB, JOSE #### [facility] , #### CRP, CK, CMP #### [address] Globulin (S) [Mass/Vol] 2.2 g/dL Normal [facility] Comment on above: Performed By: #### A NTIR, RNA POLYMR, HEP C, ANTI TH TO, HBCAB, PM-SCL ABS, U3 SLIDER ASSEMBLER, HBSAG, HBSAB, JOSE #### [facility] , #### CRP, CK, CMP #### [address] Glucose [Mass/Vol] 87 mg/dL Normal 70-100 [facility] Comment on above: Result Comment: [facility] Glucose Reference Range is dependent on time and content of last meal. Glucose of more than 200 mg/dL in a nonstressed, ambulatory subject supports the diagnosis of Diabetes Mellitus. ADA recommended reference range Performed By: #### A NTIR, RNA POLYMR, HEP C, ANTI TH TO, HBCAB, PM-SCL ABS, U3 SLIDER ASSEMBLER, HBSAG, HBSAB, JOSE #### [facility] , #### CRP, CK, CMP #### [address] Potassium [Moles/Vol] 4.5 mmol/L Normal 3.5-5.1 [facility] Comment on above: Performed By: #### A NTIR, RNA POLYMR, HEP C, ANTI TH TO, HBCAB, PM-SCL ABS, U3 SLIDER ASSEMBLER, HBSAG, HBSAB, JOSE #### [facility] , #### CRP, CK, CMP #### [address] Protein [Mass/Vol] 6.3 g/dL Normal 6.1-7.9 [facility] Comment on above: Performed By: #### A NTIR, RNA POLYMR, HEP C, ANTI TH TO, HBCAB, PM-SCL ABS, U3 SLIDER ASSEMBLER, HBSAG, HBSAB, JOSE #### [facility] , #### CRP, CK, CMP #### [address] Sodium [Moles/Vol] 143 mmol/L Normal 136-146 [facility] Comment on above: Performed By: #### A NTIR, RNA POLYMR, HEP C, ANTI TH TO, HBCAB, PM-SCL ABS, U3 SLIDER ASSEMBLER, HBSAG, HBSAB, JOSE #### [facility] , #### CRP, CK, CMP #### [address] Urea nitrogen [Mass/Vol] 11 mg/dL Normal 9-23 [facility] Comment on above: Performed By: #### A NTIR, RNA POLYMR, HEP C, ANTI TH TO, HBCAB, PM-SCL ABS, U3 SLIDER ASSEMBLER, HBSAG, HBSAB, JOSE #### [facility] , #### CRP, CK, CMP #### [address] Creatine Kinaseon 08-08-2020 CK [Catalytic activity/Vol] 39 U/L Normal 22-269 [facility] Comment on above: Result Comment: PERF ORMED BY: [place] [address] PATHOLOGIST SOFTWARE PUBLISHER BEAU JOHNSON M.D. Performed By: #### A NTIR, RNA POLYMR, HEP C, ANTI TH TO, HBCAB, PM-SCL ABS, U3 SLIDER ASSEMBLER, HBSAG, HBSAB, JOSE #### [facility] , #### CRP, CK, CMP #### [address] Erythrocyte Sedimentation Ra byron 08-08-2020 ESR (Bld) [Velocity] 4 mm/h Normal 0-29 [facility] Comment on above: Result Comment: PERF ORMED BY: [place] [address] PATHOLOGIST SOFTWARE PUBLISHER BEAU JOHNSON M.D. Performed By: #### A NTIR, RNA POLYMR, HEP C, ANTI TH TO, HBCAB, PM-SCL ABS, U3 SLIDER ASSEMBLER, HBSAG, HBSAB, JOSE #### [facility] , #### CRP, CK, CMP #### [facility] [address] [place] [address] Hep C Ab w Verificationon HCV AB <0.1 Normal 0.0-0.9 [facility] Comment on above: Order Comment: Speci men Comment: Test(s) 638219-Rtee-T2 SLIDER ASSEMBLER (Fibrillarin)(RDL) Specimen Comment: was developed and its performance characteristics Specimen Comment: determined by [facility]. It has not been cleared or approved Specimen Comment: by the Food and Drug Administration. Specimen Comment: Test(s) [id number]-Sdgo-MB/Scl-75 Ab (RDL) Specimen Comment: was developed and its performance characteristics Specimen Comment: determined by [facility]. It has not been cleared or approved Specimen Comment: by the Food and Drug Administration. Performed By: #### A NTIR, RNA POLYMR, HEP C, ANTI TH TO, HBCAB, PM-SCL ABS, U3 SLIDER ASSEMBLER, HBSAG, HBSAB, JOSE #### [facility] , #### CRP, CK, CMP #### [facility] [address] [place] [address] [place] HCV Ab Comment Normal . [facility] Comment on above: Order Comment: Speci men Comment: Test(s) 467287-Dmbg-U8 SLIDER ASSEMBLER (Fibrillarin)(RDL) Specimen Comment: was developed and its performance characteristics Specimen Comment: determined by [facility]. It has not been cleared or approved Specimen Comment: by the Food and Drug Administration. Specimen Comment: Test(s) 663539-Wkkn-FX/Scl-75 Ab (RDL) Specimen Comment: was developed and [...] ANTI TH TO, HBCAB, PM-SCL ABS, U3 SLIDER ASSEMBLER, HBSAG, HBSAB, JOSE #### [facility] , #### CRP, CK, CMP #### [facility] [address] Hepatitis B Core Antibodyon 08-08-2020 Hepatitis B Core Antibody Negative Normal Negative [facility] Comment on above: Order Comment: Speci men Comment: Test(s) 816336-Vlau-C9 SLIDER ASSEMBLER (Fibrillarin)(RDL) Specimen Comment: was developed and its performance characteristics Specimen Comment: determined by [facility]. It has not been cleared or approved Specimen Comment: by the Food and Drug Administration. Specimen Comment: Test(s) 074454-Cjkk-EB/Scl-75 Ab (RDL) Specimen Comment: was developed and its performance characteristics Specimen Comment: determined by [facility]. It has not been cleared or approved Specimen Comment: by the Food and Drug Administration. Result Comment: Perf ormed at: - [facility] [id number] Oyster Planter: David Pace PhD, Phone: [phone] Performed By: #### A NTIR, RNA POLYMR, HEP C, ANTI TH TO, HBCAB, PM-SCL ABS, U3 SLIDER ASSEMBLER, HBSAG, HBSAB, JOSE #### [facility] , #### CRP, CK, CMP #### [facility] [address] [place] [address] [place] Hepatitis B Surface Antibody on 08-08-2020 Hepatitis B Surface Antibody Non Reactive Normal . [facility] Comment on above: Order Comment: Speci men Comment: Test(s) 572134-Jnme-B2 SLIDER ASSEMBLER (Fibrillarin)(RDL) Specimen Comment: was developed and its performance characteristics Specimen Comment: determined by [facility]. It has not been cleared or approved Specimen Comment: by the Food and Drug Administration. Specimen Comment: Test(s) 322693-Agbv-AJ/Scl-75 Ab (RDL) Specimen Comment: was developed and [...] ANTI TH TO, HBCAB, PM-SCL ABS, U3 SLIDER ASSEMBLER, HBSAG, HBSAB, JOSE #### [facility] , #### CRP, CK, CMP #### [facility] [address] Hepatitis B Surface Antigeno n 08-08-2020 HBsAg Screen Negative Normal Negative [facility] Comment on above: Order Comment: Speci men Comment: Test(s) 950846-Bkkc-K1 SLIDER ASSEMBLER (Fibrillarin)(RDL) Specimen Comment: was developed and its performance characteristics Specimen Comment: determined by [facility]. It has not been cleared or approved Specimen Comment: by the Food and Drug Administration. Specimen Comment: Test(s) 463113-Cdbk-VN/Scl-75 Ab (RDL) Specimen Comment: was developed and its performance characteristics Specimen Comment: determined by [facility]. It has not been cleared or approved Specimen Comment: by the Food and Drug Administration. Performed By: #### A NTIR, RNA POLYMR, HEP C, ANTI TH TO, HBCAB, PM-SCL ABS, U3 SLIDER ASSEMBLER, HBSAG, HBSAB, JOSE #### [facility] , #### CRP, CK, CMP #### [facility] [address] [place] [address] [place] PM-SCL Antibodieson 08-08-19 21 JOHN PM-Scl Antibody <20 Normal <20 [facility] Comment on above: Order Comment: Speci men Comment: Test(s) 864392-Kczb-Q4 SLIDER ASSEMBLER (Fibrillarin)(RDL) Specimen Comment: was developed and its performance characteristics Specimen Comment: determined by [facility]. It has not been cleared or approved Specimen Comment: by the Food and Drug Administration. Specimen Comment: Test(s) 168707-Kbss-JL/Scl-75 Ab (RDL) Specimen Comment: was developed and its performance characteristics Specimen Comment: determined by [facility]. It has not been cleared or approved Specimen Comment: by the Food and Drug Administration. Result Comment: Nega tive: <20 Weak Positive: 20 - 39 Moderate Positive: 40 - 80 Strong Positive: >80 Performed at: [facility] [address] [place] [id number] Oyster Planter: Shay Mcnair MD, Phone: [phone] Performed By: #### A NTIR, RNA POLYMR, HEP C, ANTI TH TO, HBCAB, PM-SCL ABS, U3 SLIDER ASSEMBLER, HBSAG, HBSAB, JOSE #### [facility] , #### CRP, CK, CMP #### [address] RNA Polymerase IIion 021 RNA Polymerase IIi <20 Normal <20 [facility] Comment on above: Order Comment: Speci men Comment: Test(s) 150481-Ltas-Zc/To Ab (RDL) Specimen Comment: was developed and its performance characteristics Specimen Comment: determined by [facility]. It has not been cleared or approved Specimen Comment: by the Food and Drug Administration. Result Comment: Nega tive: <20 Weak Positive: 20 - 39 Moderate Positive: 40 - 80 Strong Positive: >80 Performed at: [facility] [address] [place] [id number] Oyster Planter: Shay Mcnair MD, Phone: [phone] PERFORMED BY: [place] [address] PATHOLOGIST SOFTWARE PUBLISHER BEAU JOHNSON M.D. Performed By: #### A NTIR, RNA POLYMR, HEP C, ANTI TH TO, HBCAB, PM-SCL ABS, U3 SLIDER ASSEMBLER, HBSAG, HBSAB, JOSE #### [facility] , #### CRP, CK, CMP #### [facility] [address] [place], [place] [id number] [place] Th/To Antibodyon 08-08-2020 Th/To Antibody Negative Normal Negative [facility] Comment on above: Order Comment: Speci men Comment: Test(s) [id number]-Ilcq-Oh/To Ab (RDL) Specimen Comment: was developed and its performance characteristics Specimen Comment: determined by [facility]. It has not been cleared or approved Specimen Comment: by the Food and Drug Administration. Result Comment: Perf ormed at: [facility] [address] [place] [id number] Oyster Planter: Shay Mcnair MD, Phone: [phone] Performed By: #### A NTIR, RNA POLYMR, HEP C, ANTI TH TO, HBCAB, PM-SCL ABS, U3 SLIDER ASSEMBLER, HBSAG, HBSAB, JOSE #### [facility] , #### CRP, CK, CMP #### [facility] [address] [place] [address] [place] U3 Rnpon 08-08-2020 U3 Head Of Quality Negative Normal Negative [facility] Comment on above: Order Comment: Speci men Comment: Test(s) 280279-Vrin-I2 SLIDER ASSEMBLER (Fibrillarin)(RDL) Specimen Comment: was developed and its performance characteristics Specimen Comment: determined by [facility]. It has not been cleared or approved Specimen Comment: by the Food and Drug Administration. Specimen Comment: Test(s) [id number]-Akqt-IY/Scl-75 Ab (RDL) Specimen Comment: was developed and its performance characteristics Specimen Comment: determined by [facility]. It has not been cleared or approved Specimen Comment: by the Food and Drug Administration. Result Comment: Perf ormed at: [facility] [address] [place] [id number] Oyster Planter: Shay Mcnair MD, Phone: [phone] PERFORMED BY: [place] [address] PATHOLOGIST SOFTWARE PUBLISHER BEAU JOHNSON M.D. Performed By: #### A NTIR, RNA POLYMR, HEP C, ANTI TH TO, HBCAB, PM-SCL ABS, U3 SLIDER ASSEMBLER, HBSAG, HBSAB, JOSE #### [facility] , #### CRP, CK, CMP #### [facility] [address] T4on 08-02-2020 T4, Total 9.9 ug/dL 4.5 - 10.9 ug/dL [place], [place] TSH without Reflexon 021 Interpretation and review of laboratory results Abnormal [place], [place] TSH Qn 5.63 m[IU]/L [place], [place] Vital Signs Date Time Vital Sign Value Performing Clinician Faci lity 01-10-2023 19:11-0400 SaO2% (BldA) [Mass fraction] 92 % Bulmaro Padron MD Work Phone: [facility] 01-10-2023 18:46-0400 Diastolic blood pressure 75 mm[Hg] Bulmaro Padron MD Work Phone: [facility] 01-10-2023 18:46-0400 Systolic blood pressure 166 mm[Hg] Bulmaro Padron MD Work Phone: [facility] 01-10-2023 17:33-0400 Body temperature 97.9 [degF] Bulmaro Padron MD Work Phone: [facility] 01-10-2023 17:33-0400 Heart rate 71 /min Bulmaro Padron MD Work Phone: [facility] 01-10-2023 17:33-0400 Respiratory rate 16 /min Bulmaro Padron MD Work Phone: [facility] Encounters Encounter Date Encounter Type Care Provider Facility Start: 05-11-2024 End: 05-11-2024 ambulatory [facility] Start: 04-06-2024 End: 04-06-2024 ambulatory Akira Vargas MD [facility]: [facility] Start: 03-23-2024 End: 03-23-2024 ambulatory Akira Vargas MD Facility:[facility] Start: 03-02-2024 End: 03-02-2024 ambulatory Akira Vargas MD Facility:[facility] Start: 05-28-2023 End: 05-29-2023 ambulatory Aayush CHOPRAAnay Facility:[facility] Start: 05-27-2023 ambulatory Aayush CHOPRAL Facility:[facility] Start: 04-29-2023 ambulatory Aayush MENDOZA Facility:[facility] Start: 04-02-2023 End: 04-03-2023 ambulatory ARMIDA Pollard MICKETTA [facility] Start: 02-01-2023 End: 02-01-2023 Subsequent hospital visit by physician Bulmaro Padron MD Work Phone: [facility] Laboratory Comment on above: Nocturia; Frequency of urination; Urge incontinence Start: 02-01-2023 End: 02-04-2023 ambulatory GABBIE WHITE [facility] Start: 01-10-2023 Emergency department patient visit [place] Gerard [facility] Start: 01-10-2023 End: 01-10-2023 Emergency department patient visit Bulmaro Padron MD Work Phone: [facility] ED Comment on above: Right ureteral stone (Primary Dx) Start: 10-09-2022 Emergency department patient visit JORDYN EATON [facility] Start: 06-19-2022 End: 06-20-[address] [...] Subsequent hospital visit by physician Bulmaro Padron [facility] Laboratory Procedures Date Procedure Procedure Detail Performing Clinician Start: 02-01-2023 Culture bacterial quanttative colony count urine Gabbie White [employer] ART[employer]AR OPERATOR - [facility] Work Phone: Start: 01-10-2023 Ct abdomen & pelvis w/o contrast material Cari Britton FI[employer] ART[employer] RADAR OPERATOR - [facility] Work Phone: Start: 01-10-2023 Comprehensive metabo lic panel Cari Chrisdavid [facility] [employer] [facility] Work Phone: Start: 01-10-2023 Urinalysis microscopic only Unknown Provider Result Start: 01-10-2023 Urnls dip stick/tabl et rgnt auto w/o microscopy 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: Start: 08-02-2020 Assay of thyroid stimulating hormone tsh Bulmaro Padron Work Phone: Start: 08-02-2020 Assay of thyroxine total Bulmaro Padron Work Phone: Plan of Treatment Date Care Activity Detail Author Start: 01-27-2028 DTaP/Tdap/Td vaccine (2 - Td or Tdap) DTaP/Tdap/Td vaccine (2 - Td or Tdap) [facility] Start: 01-27-2028 DTaP/Tdap/Td vaccine (2 - Td) DTaP/Tdap/Td vaccine (2 - Td) [place], [place] Start: 02-12-2023 Influenza vaccination [facility] Start: 03-15-2020 Influenza vaccination Flu vaccine (# 1) [place], [place] Start: 01-04-2019 Annual Wellness Visi t (AWV) Annual Wellness Visit (AWV) [facility] Start: 2012 Screening for malign ant neoplasm of breast Breast cancer screen [facility] Start: 2012 Screening for malign ant neoplasm of colon Colon cancer screen colonoscopy [place], [place] Start: 2012 Shingles Vaccine (1 of 2) Shingles Vaccine (1 of 2) [facility] Start: 12-15-2007 Screening for malign ant neoplasm of colon [facility] Start: 2002 Lipid panel [facility] Start: 1997 Diabetes screen Diabetes screen [facility] Start: 1992 Screening for malign ant neoplasm of cervix [facility] Start: 12-15-1983 Screening for malign ant neoplasm of cervix [facility] Start: 1980 Hepatitis C screening Hepatitis C adebayo dennis [facility] Start: 1977 HIV screening HIV screen [facility] Start: 1974 Depression Screen Depression Screen [facility] Start: 06-15-1963 COVID-19 Vaccine (#1) COVID-19 Vacci ne (#1) [facility] Start: 1962 Hepatitis C screening Hepatitis C [place], [place] End: 08-02-2020 Free T3 [Mass/Vol] T3, Free Lab Routine Once for 1 Occurrences starting 08/02/2020 until 08/02/2020 [place], [place] Comment on above: Once for 1 Occurrenc es starting 08/02/2020 until 08/02/2020 Free T3 [Mass/Vol] T3, Free Lab Routine 08/02/2020 10:13 AM EST [place], [place] Immunizations Immunization Date Immunization Notes Care Provider Gt doyle 01-26-2018 tetanus toxoid, redu clare diphtheria toxoid, and acellular pertussis vaccine, adsorbed Bulmaro Hoy [facility] Payers Date Payer Category Payer Private Health Insurance 2018 Medicare [id number] 2017 Unknown [id number] 1960 Unknown [id number] 2.16.84 [id number] 1962 Unknown [id number] 2.16.84 [id number] 1962 Unknown [id number] 2.16.84 [id number] 1962 Unknown [id number] 2.16.84 [id number] 1962 Unknown [id number] 2.16.84 0.1.409947.3.579.2.593 1962 Unknown [id number] 2.16.84 0.1.820455.3.579.2.593 1962 Unknown [id number] 2.16.8 40.1.538742.3.579.2.173 1962 Unknown [id number] 2.16.8 [id number] 1962 Unknown [id number] 2.16.8 [id number] 1962 Unknown [id number] 2.16.8 40.1.902443.3.579.2.173 1962 Unknown [id number] 2.16.8 [id number] 1962 Unknown [id number] 2.16. [id number] 1962 Unknown [id number] 2.16. [id number] 1962 Unknown [id number] 2.16. [id number] 1962 Unknown [id number] 2.16. [id number] Social History Date Type Detail Facility Start: 07-01-2018 End: 01-11-2023 Tobacco smoking status NHIS Former smoker [place], [place] Start: 07-01-2018 End: 01-11-2023 Tobacco use and exposure Never used [place], [place] Start: 07-01-2018 End: 02-01-2023 Alcohol intake Current non-drinker of alcohol (finding) [place], [place] Start: 1960 Sex Assigned At Not on file [place] History of tobacco use Current smoker [facility] Start: 10-09-2022 History SDOH Alcohol Frequency 1 [facility] Start: 10-09-2022 History [facility] Alcohol Std Drinks 0 [facility] Clinical Note 05-28-2023 Note Date & [...] 05/28/20 (more content not included)... [facility] Comment on [...] cannot be sent through Care Everywhere.Kidney Stone (Persian)documented in this encounter [facility] Evaluation note Note Date & Type Note Facility Evaluation note Diagnosis Right ureteral stone- Primary Calculus of ureter documented in this encounter [facility] Evaluation note Note Date & Type Note Facility Evaluation note Diagnosis Nocturia Frequency of urination Urinary frequency Urge incontinence documented in this encounter [facility] Advance Directives No Advanced Directives Records FoundDocuments on File Type Date 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 ACP-Advance Directive ACP-Power of Prefitter Summary Purpose Family History No Family History Records FoundNo Family History Records FoundNo Family History Records FoundNo Family History Records FoundNo Family History Records Found Additional Source Comments INFORMATION SOURCE (unrecogn ized section and content) DATE CREATED AUTHOR 08/17/2020 [facility] DATE CREATED AUTHOR AUTHOR'S ORGANIZ ATION 06/23/2022 [facility] DATE CREATED AUTHOR AUTHOR'S ORGANIZ ATION 04/05/2023 [facility] DATE CREATED AUTHOR AUTHOR'S ORGANIZ ATION 05/29/2023 [facility] DATE CREATED AUTHOR AUTHOR'S ORGANIZ ATION 05/30/2024 [facility] Reason for Visit (unrecogniz ed [...] patient on the 2002 ([facility]: Celia Brady RN) HYDROmorphone [...] Care Teams (unrecognized sec tion and content) Network Operations Manager Relationship Specialty Start Date End Date Bulmaro Padron MD [address] [phone] PCP - General Family Medicine 01/26/18 Network Operations Manager Relationship Specialty Start Date End Date uBlmaro Padron MD [address] [place], [place] [id number] [phone] PCP - General Family Medicine 01/26/18 FOR [...] BE BASED ON THE PRIMARY CLINICAL RECORDS. [facility]. provides no warranty or guarantee of the accuracy or completeness of information in this document.
[2025-01-14 10:42] LABS: Hematocrit 42.2 % (36.0-48.0); Hemoglobin 14.3 g/dL (12.0-16.0); Immature Granulocytes Abs Auto 0.01 10^3/uL (0.00-0.03); Immature Granulocytes Pct Auto 0.2 % (0.0-0.5); Lymphocytes Absolute Auto 1.4 10^3/uL (1.2-3.8); Mean Corpuscular HGB Conc 33.9 g/dL (29.9-35.2); Mean Corpuscular Hemoglobin 32.4 pg (26.7-34.0); Mean Corpuscular Volume 95.7 fL (81.0-99.0); Platelet Count 188 10^3/uL (150-450); Red Blood Count 4.41 10^6/uL (4.20-5.40); White Blood Count 5.2 10^3/uL (4.0-11.0)
[2025-01-14 10:57] LABS: Alanine Aminotransferase 37 U/L (14-59); Albumin Globulin Ratio 1.1; Albumin Level 3.6 g/dL (3.4-5.0); Alkaline Phosphatase 102 U/L (46-116); Anion Gap 11.4; Aspartate Amino Transferase 31 U/L (15-37); Blood Urea Nitrogen 14.0 mg/dL (7.0-18.0); Calcium 9.0 mg/dL (8.5-10.1); Carbon Dioxide 28.8 mmol/L (21.0-32.0); Chloride 106 mmol/L (98-107); Cholesterol 120 mg/dL (<=200); Estimated GFR (African America >60 (>=60 mL/min/1.73m^2); Estimated GFR (Non-African Ame >60 (>=60 mL/min/1.73m^2); Free T3 4.48 pg/mL (2.18-3.98); Globulin 3.3 g/dL; Glucose 83 mg/dL (74-106); HDL Cholesterol 48 mg/dL (40-60); Potassium 4.2 mmol/L (3.5-5.1); Sodium 142 mmol/L (136-145); Thyroid Stimulating Hormone 1.061 uIU/mL (0.358-3.740); Total Protein 6.9 g/dL (6.4-8.2); Triglycerides 44 mg/dL (<=150); VLDL CHOLESTEROL 8.8 mg/dL
[2025-01-14 11:29] LABS: Iron 113.0 ug/dL (50.0-170.0)
[2025-01-14 12:19] LABS: Ferritin 52.0 ng/mL (8.0-252.0); Folate 13.90 ng/mL (8.60-58.90)
[2025-01-15 04:07] LABS: Vitamin B12 >2000 pg/mL (232-1245)
== END 2025-01-14 10:00 | disposition home or self-care (01) ==
LOC: LAB 10:01
PROVIDERS: PCP Family Medicine; Visit Provider Family Medicine
DX: Z00.00 Encounter for general adult medical examination without abnormal findings (principal); E66.01 Morbid (severe) obesity due to excess calories; E55.9 Vitamin D deficiency, unspecified; D50.9 Iron deficiency anemia, unspecified; E78.5 Hyperlipidemia, unspecified; R73.09 Other abnormal glucose; Z12.12 Encounter for screening for malignant neoplasm of rectum; D64.9 Anemia, unspecified; E03.9 Hypothyroidism, unspecified; I10 Essential (primary) hypertension; R53.83 Other fatigue
CPT/HCPCS: 36415; 80053; 80061; 82306; 82607; 82728; 82746; 83036; 83525; 83540; 84436; 84443; 84481; 85025

== ENCOUNTER 2025-01-22 12:49 | Outpatient (OUT) | payer MEDICARE, SELFPAY ==
--- NOTE | 2025-01-22 14:40 | MM_ITS ---
Patient Name: JOSÉ LUIS KURTZ MR#: [id number] : 1960 Exam Date: 01/22/2025 Ordering Doctor: DR BULMARO ELIZABETH . RADIOLOGY REPORT PROCEDURE: MM TOMOSYNTHESIS SCREENING BI COMPARISON: MG MAMM DX FLAQUITA 3D FU CAD, 03/28/2022. MAMMO POST BIOPSY LEFT, 07/25/2021. MG MAMM LT DIAG W CAD, 07/20/2021. MG MAMM SCREEN 3D FLAQUITA CAD, 02/28/2021. INDICATIONS: well adult Calculator Name NCI Breast Cancer Risk Assessment Tool 5 Year Breast Cancer Risk 2.60% Lifetime Breast Cancer Risk 11.30% Personal Breast Cancer No Personal Ovarian Cancer No Treatments None Family Cancers Uncle-maternal with lung cancer at age ~55. LOCATION: [facility] BREAST COMPOSITION: The breasts are almost entirely fatty. FINDINGS: RIGHT BREAST: No significant suspicious finding. LEFT BREAST: No significant suspicious finding. Benign-appearing calcifications are present. There is a biopsy clip on the left which is unchanged . DIAGNOSTIC CATEGORY 2--BENIGN FINDING: RECOMMENDATIONS: ROUTINE MAMMOGRAM AND CLINICAL EVALUATION IN 12 MONTHS. PLEASE NOTE: A NORMAL MAMMOGRAM DOES NOT EXCLUDE THE POSSIBILITY OF BREAST CANCER. A CLINICALLY SUSPICIOUS PALPABLE LUMP SHOULD BE BIOPSIED. Dictated by: Owen Villarreal MD on 01/22/2025 at 14:54 Approved by: Owen Villarreal MD on 01/22/2025 at 15:54
== END 2025-01-22 12:50 | disposition home or self-care (01) ==
PROVIDERS: PCP Family Medicine; Visit Provider Family Medicine
DX: Z00.00 Encounter for general adult medical examination without abnormal findings (principal); D35.02 Benign neoplasm of left adrenal gland; Z12.31 Encounter for screening mammogram for malignant neoplasm of breast; E28.39 Other primary ovarian failure; E78.5 Hyperlipidemia, unspecified; R73.09 Other abnormal glucose; Z12.12 Encounter for screening for malignant neoplasm of rectum; D64.9 Anemia, unspecified; E03.9 Hypothyroidism, unspecified; E55.9 Vitamin D deficiency, unspecified; I10 Essential (primary) hypertension; R53.83 Other fatigue; K43.9 Ventral hernia without obstruction or gangrene; G89.29 Other chronic pain; Z80.1 Family history of malignant neoplasm of trachea, bronchus and lung
CPT/HCPCS: 74183; 77063; 77067; 77080; A9575; G0328